=== PATIENT | male | born 1945 | race Caucasian/White ===

== ENCOUNTER 2020-01-31 10:55 | Outpatient (RCR) | payer MEDICARE, SELFPAY | END 2020-02-27 13:03 | disposition home or self-care (01) | LOC: HO.WCC 10:55 | PROVIDERS: Visit Provider Physician Assistant Surgical | DX: S81.811A Laceration without foreign body, right lower leg, initial encounter (principal); I73.9 Peripheral vascular disease, unspecified; H54.7 Unspecified visual loss | CPT/HCPCS: 11042; 99212; 99213 ==

== ENCOUNTER → 2020-02-12 11:56 | Outpatient (BNVA) | payer MEDICARE, SELFPAY | PROVIDERS: PCP Internal Medicine; Referring Provider Internal Medicine; Visit Provider Internal Medicine | DX: I48.0 Paroxysmal atrial fibrillation (principal); Z86.73 Personal history of transient ischemic attack (TIA), and cerebral infarction without residual deficits; Z51.81 Encounter for therapeutic drug level monitoring; Z79.01 Long term (current) use of anticoagulants | CPT/HCPCS: Q3014 ==

== ENCOUNTER → 2020-02-20 16:00 | Outpatient (BNVA) | payer MEDICARE, SELFPAY | PROVIDERS: PCP Internal Medicine; Visit Provider Internal Medicine | DX: I48.0 Paroxysmal atrial fibrillation (principal); Z86.73 Personal history of transient ischemic attack (TIA), and cerebral infarction without residual deficits; Z51.81 Encounter for therapeutic drug level monitoring; Z79.01 Long term (current) use of anticoagulants | CPT/HCPCS: Q3014 ==

== ENCOUNTER → 2020-02-25 10:01 | Outpatient (BNVA) | payer MEDICARE, SELFPAY | PROVIDERS: PCP Internal Medicine; Visit Provider Internal Medicine | DX: I48.0 Paroxysmal atrial fibrillation (principal); Z86.73 Personal history of transient ischemic attack (TIA), and cerebral infarction without residual deficits; Z51.81 Encounter for therapeutic drug level monitoring; Z79.01 Long term (current) use of anticoagulants | CPT/HCPCS: 85610; 99211 ==

== ENCOUNTER 2020-03-10 10:31 | Outpatient (REF) | payer MEDICARE, SELFPAY ==
[2020-03-10 11:52] LABS: MANUAL DIFF FLAG NO
[2020-03-10 12:11] LABS: Basophils Absolute Auto 0.1 X10*3/uL (0.0-0.2); Basophils Percent Auto 0.8 % (0-2); Eosinophils Absolute Auto 0.6 X10*3/uL (0.0-0.4); Eosinophils Percent Auto 6.1 % (0-4); Hematocrit 39.5 % (42-52); Hemoglobin 11.9 g/dl (14.0-18.0); Imm Gran Abs Auto 0.03 X10*3/uL (0.00-0.03); Imm Gran Pct Auto 0.3 % (0.0-0.4); Lymphocytes Absolute Auto 2.6 X10*3/uL (1.2-4.9); Lymphocytes Percent Auto 25.8 % (20-40); Mean Corpuscular HGB Conc 30.1 g/dl (31.0-36.0); Mean Corpuscular Hemoglobin 22.8 pg (27.0-33.0); Mean Corpuscular Volume 75.7 fL (80-98); Monocytes Absolute Auto 0.6 X10*3/uL (0.1-1.2); Monocytes Percent Auto 6.4 % (2-11); Neutrophils Percent Auto 60.6 % (45-73); Platelet Count 219 X10*3/uL (160-400); Red Blood Count 5.22 X10*6/uL (4.60-5.80); Red Cell Distribution Width 18.5 % (11.0-16.0)
[2020-03-10 12:32] LABS: Anion Gap 14 (12-20); Blood Urea Nitrogen 26 mg/dL (9-16); Calcium 9.4 mg/dL (8.4-10.2); Carbon Dioxide 26 mmol/L (22-29); Chloride 107 mmol/L (96-108); Cholesterol 142 mg/dL; Estimated Glomerular Filt Rate 47; Glucose Fasting 165 mg/dL (60-99); HDL Cholesterol 46 mg/dL; LDL Cholesterol Calculated 78 mg/dl; Potassium 5.3 mmol/l (3.3-5.1); Sodium 142 mmol/L (135-145); Triglycerides 90 mg/dL
== END 2020-03-10 10:32 | disposition home or self-care (01) ==
LOC: HO.LAB 10:31
PROVIDERS: PCP Nurse Practitioner Family; Visit Provider Nurse Practitioner Family
DX: E11.9 Type 2 diabetes mellitus without complications (principal); I10 Essential (primary) hypertension; E78.00 Pure hypercholesterolemia, unspecified; R89.9 Unspecified abnormal finding in specimens from other organs, systems and tissues
CPT/HCPCS: 36415; 80048; 80061; 85025; 85610; 99211

== ENCOUNTER → 2020-03-31 10:58 | Outpatient (BNVA) | payer MEDICARE, SELFPAY | PROVIDERS: PCP Nurse Practitioner Family; Visit Provider Internal Medicine | DX: I48.0 Paroxysmal atrial fibrillation (principal); Z86.73 Personal history of transient ischemic attack (TIA), and cerebral infarction without residual deficits; Z51.81 Encounter for therapeutic drug level monitoring; Z79.01 Long term (current) use of anticoagulants | CPT/HCPCS: 85610; 99211 ==

== ENCOUNTER → 2020-05-01 10:21 | Outpatient (BNVA) | payer MEDICARE, SELFPAY | PROVIDERS: PCP Nurse Practitioner Family; Visit Provider Internal Medicine | DX: I48.0 Paroxysmal atrial fibrillation (principal); Z86.73 Personal history of transient ischemic attack (TIA), and cerebral infarction without residual deficits; Z51.81 Encounter for therapeutic drug level monitoring; Z79.01 Long term (current) use of anticoagulants | CPT/HCPCS: 85610; 99211 ==

== ENCOUNTER → 2020-06-12 10:29 | Outpatient (BNVA) | payer MEDICARE, SELFPAY | PROVIDERS: PCP Nurse Practitioner Family; Visit Provider Internal Medicine | DX: I48.0 Paroxysmal atrial fibrillation (principal); Z86.73 Personal history of transient ischemic attack (TIA), and cerebral infarction without residual deficits; Z51.81 Encounter for therapeutic drug level monitoring; Z79.01 Long term (current) use of anticoagulants | CPT/HCPCS: 85610; 99211 ==

== ENCOUNTER → 2020-07-15 10:49 | Outpatient (BNVA) | payer MEDICARE, SELFPAY | PROVIDERS: PCP Internal Medicine; Visit Provider Internal Medicine | DX: I48.0 Paroxysmal atrial fibrillation (principal); Z86.73 Personal history of transient ischemic attack (TIA), and cerebral infarction without residual deficits; Z51.81 Encounter for therapeutic drug level monitoring; Z79.01 Long term (current) use of anticoagulants | CPT/HCPCS: 85610; 99211 ==

== ENCOUNTER → 2020-09-02 10:18 | Outpatient (BNVA) | payer MEDICARE, SELFPAY | PROVIDERS: PCP Internal Medicine; Visit Provider Internal Medicine | DX: I48.0 Paroxysmal atrial fibrillation (principal); Z86.73 Personal history of transient ischemic attack (TIA), and cerebral infarction without residual deficits; Z79.01 Long term (current) use of anticoagulants | CPT/HCPCS: 85610; 99211 ==

== ENCOUNTER → 2020-09-30 10:25 | Outpatient (BNVA) | payer MEDICARE, SELFPAY | PROVIDERS: PCP Internal Medicine; Visit Provider Internal Medicine | DX: I48.0 Paroxysmal atrial fibrillation (principal); Z86.73 Personal history of transient ischemic attack (TIA), and cerebral infarction without residual deficits; Z51.81 Encounter for therapeutic drug level monitoring; Z79.01 Long term (current) use of anticoagulants | CPT/HCPCS: 85610; 99211 ==

== ENCOUNTER 2020-11-10 10:18 | Outpatient (REF) | payer MEDICARE, SELFPAY ==
[2020-11-10 11:42] LABS: MANUAL DIFF FLAG NO
[2020-11-10 11:49] LABS: Basophils Absolute Auto 0.1 X10*3/uL (0.0-0.2); Basophils Percent Auto 0.8 % (0-2); Eosinophils Absolute Auto 0.7 X10*3/uL (0.0-0.4); Eosinophils Percent Auto 8.1 % (0-4); Hematocrit 39.1 % (42-52); Hemoglobin 12.3 g/dl (14.0-18.0); Imm Gran Abs Auto 0.02 X10*3/uL (0.00-0.03); Imm Gran Pct Auto 0.2 % (0.0-0.4); Lymphocytes Absolute Auto 2.1 X10*3/uL (1.2-4.9); Mean Corpuscular HGB Conc 31.5 g/dl (31.0-36.0); Mean Corpuscular Hemoglobin 25.9 pg (27.0-33.0); Mean Corpuscular Volume 82.5 fL (80-98); Mean Platelet Volume 11.8 fL (9.4-12.4); Monocytes Absolute Auto 0.4 X10*3/uL (0.1-1.2); Neutrophils Percent Auto 60.9 % (45-73); Platelet Count 230 X10*3/uL (160-400); Red Blood Count 4.74 X10*6/uL (4.60-5.80); White Blood Count 8.3 X10*3/uL (4.8-10.8)
[2020-11-10 12:13] LABS: Alanine Aminotransferase 7 U/L (0-40); Albumin Level 4.2 g/dL (3.5-5.0); Alkaline Phosphatase 151 U/L (39-117); Anion Gap 15 (12-20); Aspartate Amino Transferase 11 U/L (5-37); Bilirubin Total 0.4 mg/dL (0.0-1.0); Blood Urea Nitrogen 22 mg/dL (9-16); Calcium 9.3 mg/dL (8.4-10.2); Carbon Dioxide 25 mmol/L (22-29); Chloride 108 mmol/L (96-108); Cholesterol 134 mg/dL; Estimated Glomerular Filt Rate 51; Glucose Fasting 133 mg/dL (60-99); HDL Cholesterol 44 mg/dL; Iron 54 mcg/dL (45-160); LDL Cholesterol Calculated 74 mg/dl; Percent Iron Saturation 20 % (15-50); Potassium 4.8 mmol/L (3.3-5.1); Sodium 143 mmol/L (135-145); Total Iron Binding Capacity 271 mcg/dL (228-428); Total Protein 6.7 g/dL (6.5-8.0); Triglycerides 82 mg/dL; Unsaturated Iron Binding 217 ug/dL
[2020-11-10 12:54] LABS: Creatinine Urine 109.52 mg/dL; Microalbum/Creatinine Ratio Ur 68.4 ug/mg cr
[2020-11-14 13:05] LABS: Levetiracetam Keppra 38.4 mcg/mL (12.0-46.0); Vitamin D 25-OH, D2 <4 ng/mL; Vitamin D 25-OH, D3 65 ng/mL; Vitamin D 25-OH, Total 65 ng/mL (30-100)
== END 2020-11-10 10:19 | disposition home or self-care (01) ==
LOC: HO.LAB 10:18
PROVIDERS: PCP Internal Medicine; Visit Provider Internal Medicine
DX: I48.0 Paroxysmal atrial fibrillation (principal); M10.9 Gout, unspecified; E11.9 Type 2 diabetes mellitus without complications; E55.9 Vitamin D deficiency, unspecified; D64.9 Anemia, unspecified; E78.5 Hyperlipidemia, unspecified; R56.9 Unspecified convulsions; Z51.81 Encounter for therapeutic drug level monitoring; Z79.01 Long term (current) use of anticoagulants
CPT/HCPCS: 36415; 80053; 80061; 80177; 82043; 82306; 83540; 84550; 85025; 85610; 99211

== ENCOUNTER → 2020-12-22 10:14 | Outpatient (BNVA) | payer MEDICARE, SELFPAY | PROVIDERS: PCP Internal Medicine; Visit Provider Internal Medicine | DX: I48.0 Paroxysmal atrial fibrillation (principal); Z86.73 Personal history of transient ischemic attack (TIA), and cerebral infarction without residual deficits; Z51.81 Encounter for therapeutic drug level monitoring; Z79.01 Long term (current) use of anticoagulants | CPT/HCPCS: 85610; 99211 ==

== ENCOUNTER 2021-01-28 13:48 | Emergency (ER) | payer MEDICARE, SELFPAY ==
--- NOTE | ~2021-01-28 | XR_ITS ---
EXAMINATION: XR TIBIA AND FIBULA, RIGHT CLINICAL INFORMATION: Diabetic ulcer COMPARISON: July 20, 2018 TECHNIQUE: AP and lateral views of the right tibia and fibula were obtained. FINDINGS: There are regions of osteopenia present proximally and distally. This is similar to previous study of July 20, 2018. There is some soft tissue edema noted within the distal tibia and fibula and ankle. No acute fracture or dislocation is seen. There is some anterior soft tissue prominence about the proximal tibia. There is significant narrowing of the medial joint space compartment of the right knee. Patient is status post previous right femoral surgery with distal aspect of intramedullary jose evident.. There is chondrocalcinosis about the lateral joint space compartment of the right knee. XR/XR tibia fibula RT 2V IMPRESSION: Regions of osteopenia about the proximal and distal tibia. No definite acute fracture or dislocation and no definite cortical bone erosion. Soft tissue edema.
[2021-01-28 14:10] VITALS: BP 118/83; PULSE 83; RESP 18; TEMP 36.3; O2SAT 95; BMI 33.5
--- NOTE | 2021-01-28 15:49 | ED.WOUNDLAC ---
HPI - Wound/Laceration General Chief Complaint: Wound/Laceration Stated Complaint: rash Time Seen by Provider: 01/28/21 15:43 Source: patient Limitations: no limitations History of Present Illness HPI narrative: This is a 76-year-old male with a history of diabetes who has had an ulcer to his right anterior leg has been worsening over the last month. Patient denies any fever. He has noted some purulent drainage and mildly increased erythema around wound. Patient went to an urgent care today but was referred to the emergency department for further evaluation. Patient has been seen in wound clinic previously. States the pain is only mild. He has mild shortness of breath, denies any chest pain, abdominal pain, vomiting, diarrhea. Related Data Home Medications Medication Instructions Recorded Confirmed allopurinol 300 mg tablet 300 mg PO DAILY 03/06/20 12/22/20 hydrocortisone 5 mg tablet (Cortef) 5 mg PO QPM tab 03/06/20 12/22/20 COVID-19 vacc,mRNA(Moderna)-PF 100 0.5 ml IM Q4W 09/30/20 12/22/20 mcg/0.5 mL IM susp(EUA) (Moderna COVID-19 Vaccine (PF)) lancets 33 gauge #100 ea 09/30/20 12/22/20 triamcinolone acetonide 0.025 % appl TOPICAL DAILY 09/30/20 12/22/20 topical cream Previous Rx's Medication Instructions Recorded aspirin 81 mg tablet,delayed 81 mg PO DAILY 90 Days #90 tab 03/07/20 release metoprolol succinate 25 mg 12.5 mg PO QAM #90 tab 03/07/20 tablet,extended release 24 hr tamsulosin 0.4 mg capsule 0.4 mg PO DAILY 90 Days #90 cap 03/07/20 cholecalciferol (vitamin D3) 50 50 mcg PO QAM #90 tab 06/22/20 mcg (2,000 unit) tablet (Vitamin D3) tamsulosin 0.4 mg capsule 0.4 mg PO BEDTIME 90 Days #90 cap 06/22/20 diaper,brief,adult,disposable #100 ea 07/15/20 (Briefs, Adult-Extra Large) lancets 28 gauge #100 ea 07/15/20 blood sugar diagnostic (FreeStyle #100 ea 07/29/20 Lite Strips) amlodipine 2.5 mg tablet 2.5 mg PO QAM 90 Days #90 tab 09/16/20 atorvastatin 40 mg tablet 40 mg PO BEDTIME 90 Days #90 tab 09/16/20 metformin 500 mg tablet 500 mg PO BID 90 Days #180 tab 09/16/20 ferrous sulfate 325 mg (65 mg 325 mg PO DAILY 60 Days #60 tab 10/13/20 iron) tablet mirtazapine 15 mg tablet 15 mg PO BEDTIME 90 Days #90 tab 10/13/20 omeprazole 20 mg capsule,delayed 20 mg PO QAM 90 Days #90 cap 10/13/20 release fluoxetine 20 mg capsule 20 mg PO QAM 90 Days #90 cap 12/15/20 hydrocortisone 5 mg tablet (Cortef) 10 mg PO QAM 60 Days #120 tab 12/15/20 levetiracetam 750 mg tablet 750 mg PO BID 90 Days #180 tab 12/15/20 warfarin 2.5 mg tablet See Rx Instructions .ROUTE 01/20/21 .COMPLEX #90 tab amoxicillin 875 mg-potassium 1 tab PO BID #20 tab 01/28/21 clavulanate 125 mg tablet (Augmentin) Allergies Allergy/AdvReac Type Severity Reaction Status Date / Time No Known Allergies Allergy Verified 11/10/20 10:32 Review of Systems Review of Systems: Yes all other systems are reviewed and are negative Constitutional: Constitutional: Reports as per HPI and Denies fever(s) Eyes: Eyes: Reports as per HPI and Reports no additional eye complaints ENT: Reports system reviewed and no additional complaints, except as documented, Reports as per HPI, Denies nasal congestion, Denies nasal discharge and Denies sore throat Cardiovascular: Cardiovascular: Reports as per HPI, Denies chest pain and Reports dyspnea (Mild) Respiratory: Respiratory: Reports as per HPI, Denies cough and Reports dyspnea (Mild) Gastrointestinal: Gastrointestinal: Reports as per HPI, Denies abdominal pain, Denies diarrhea and Denies vomiting Genitourinary: Genitourinary: Reports as per HPI, Denies hematuria, Denies dysuria and Denies urinary frequency Musculoskeletal: Musculoskeletal: Reports no additional musculoskeletal complaints and Denies numbness Comments: Extremity pain Integumentary/Breasts: Skin/Breast: Reports as per HPI and Denies rash Comments: Ulcer right anterior leg Neurologic: Reports as per HPI, Denies focal weakness, Denies numbness and Denies Sensory deficit (Neuro) Psychiatric: Psychiatric: Reports no additional psychiatric complaints and Reports as per HPI Endocrine: Endocrine: Reports no additional endocrine complaints and Reports as per HPI Hematologic/Lymphatic: Hematologic/Lymphatic: Reports no additional hematologic/lymphatic complaints, Reports as per HPI and Reports other (No peripheral edema) [facility] Past Medical History Medical History Abnormal laboratory test BPH (benign prostatic hyperplasia) Diabetes Dyslipidemia Gout Hypertension Hypovitaminosis D Iron deficiency anemia Psoriasis Seizures Stroke Surgical History History of kidney stones History of open reduction and internal fixation (ORIF) procedure Family History Family History Mother Heart problem Father Bone cancer Social History Social History Housing: Apartment Alcohol intake: former Patient Tobacco Use Status: Never used Tobacco e-Cigarette/Vaping Use: Never Used Second Hand Smoke Exposure: No Advance Directives: No service: No Current occupational status: disabled Physical Exam Vital Signs: Vital Signs: Last Vital Signs Temp 97.8 F 01/28/21 16:41 Pulse 70 01/28/21 16:41 Resp 16 01/28/21 16:41 BP 102/67 01/28/21 16:41 Pulse Ox 96 01/28/21 16:41 Body Mass Index 33.5 Const: Other: Moderately obese General: cooperative, no acute distress and alert Orientation/consciousness: patient oriented x3 HENMT: Head: Yes normal to inspection Eyes: General: appearance normal, both eyes and all related structures Eyelids: Yes eyelids normal Conjunctivae: conjunctivae normal Pupils: Equal, round and reactive pupils present Neck: Neck: Yes normal visual inspection and Yes supple Chest: Chest palpation & inspection: normal inspection of the chest Resp: Effort & Inspection: normal respiratory effort Auscultation: clear to auscultation bilaterally Cardio: Rate: regular rate Rhythm: regular rhythm Heart sounds: S1 normal heart sound present, S2 normal heart sound present, no gallops, no murmurs and no rubs GI: Palpation (GI): Soft to palpation, nontender and Other GI palpation findings present (Non-distended) Auscultation: normal bowel sounds Skin: General skin exam: no rashes or lesions noted Neuro: General: patient oriented x3, no focal motor deficits and CN's II-XI intact bilaterally Cranial nerves: Yes Equal, round and reactive pupils present Cognition (Neuro): normal cognition Motor exam (neuro): 5/5 motor strength present throughout Sensory Exam: No Sensory deficit (Neuro) Extrem: Other: Right anterior leg with an approximately 3 x 2 area of ulceration and necrotic tissue with mild localized erythema. Right foot is warm with a normal dorsalis pedis pulse is. No calf swelling or tenderness General: Yes no pedal edema and Yes no calf tenderness Psych: Appearance: grossly normal Affect: normal affect MDM - Wound/Laceration MDM Narrative Medical decision making narrative: Patient with a right leg ulcer with mild inflammation/erythema, with necrotic skin and dark fibrinous material in the ulcer, which was debrided until there is only healthy pink tissue visible. Patient is being started on Augmentin. X-ray did not show any evidence of osteomyelitis and once the wound was debrided, it was clear that it was relatively superficial. CBC and chemistry notable only for renal insufficiency, which is about at baseline, and mild hyperkalemia of 5.8, which is fairly chronic-the patient has had mildly elevated levels before. Patient does not appear to be on any Dante inhibitors or potassium-sparing diuretics. Will treat with Kayexalate 30 g p.o. and the patient is advised to have his potassium rechecked either tomorrow or early next week. He is advised to drink plenty of fluids. Lab Data Attestation: I reviewed the patient's lab results. Result diagrams: 01/28/21 16:39 01/28/21 16:39 Labs: Lab Results 01/28/21 01/28/21 Range/Units 16:39 16:39 WBC 10.2 (4.8-10.8) X10*3/uL RBC 4.54 L (4.60-5.80) X10*6/uL Hgb 12.0 L (14.0-18.0) g/dl Hct 37.1 L (42-52) % MCV 81.7 (80-98) fL MCH 26.4 L (27.0-33.0) pg MCHC 32.3 (31.0-36.0) g/dl RDW 16.3 H (11.0-16.0) % Plt Count 203 (160-400) X10*3/uL MPV 11.6 (9.4-12.4) fL Immature Gran % (Auto) 0.2 (0.0-0.4) % Neut % (Auto) 71.9 (45-73) % Lymph % (Auto) 13.8 L (20-40) % [place] % (Auto) 4.9 (2-11) % Eos % (Auto) 8.4 H (0-4) % Baso % (Auto) 0.8 (0-2) % Lymph # (Auto) 1.4 (1.2-4.9) X10*3/uL [place] # (Auto) 0.5 (0.1-1.2) X10*3/uL Eos # (Auto) 0.9 H (0.0-0.4) X10*3/uL Baso # (Auto) 0.1 (0.0-0.2) X10*3/uL Abs Immat Gran (auto) 0.02 (0.00-0.03) X10*3/uL Absolute Neuts (auto) 7.3 (2.0-8.3) X10*3/uL Absolute Nucleated RBC 0.000 (0.0-0.012) X10*3/uL Nucleated RBC % (auto) 0.0 (0.0-0.2) /100WBC Sodium 143 (135-145) mmol/L Potassium 5.8 H D (3.3-5.1) mmol/L Chloride 109 H (96-108) mmol/L Carbon Dioxide 22 (22-29) mmol/L Anion Gap 18 (12-20) BUN 24 H (9-16) mg/dL Creatinine 1.53 H (0.5-1.4) mg/dL Estim Creat Clear Calc 57.0 Estimated GFR 45 Random Glucose 143 H (60-115) mg/dL Calcium 9.1 (8.4-10.2) mg/dL Total Bilirubin 0.6 (0.0-1.0) mg/dL AST 11 (5-37) U/L ALT 11 (0-40) U/L Alkaline Phosphatase 170 H (39-117) U/L Total Protein 6.3 L (6.5-8.0) g/dL Albumin 4.1 (3.5-5.0) g/dL Imaging Data Tib-fib x-ray, right leg: Radiologist's impression: IMPRESSION: Regions of osteopenia about the proximal and distal tibia. No definite acute fracture or dislocation and no definite cortical bone erosion. Soft tissue edema. ? Procedures Procedure Narrative Procedure Narrative: Patient's right leg skin ulcer was debrided of necrotic/fibrinous material, using sterile forceps and scissors. The wound was rinsed and scrubbed with saline and gauze until only pink dermal tissue was apparent. Wound was relatively superficial. Wound culture sent. Patient tolerated the procedure well. No anesthetic necessary. Wet to dry gauze dressing applied Discharge Plan Discharge Clinical Impression: Diabetic leg ulcer, Hyperkalemia Patient Disposition: Home, Self-Care Instructions: Diabetic Foot Ulcers (ED) Additional Instructions: Cleanse the wound daily with saline on a Q-tip, then apply antibiotic ointment and a dressing. Follow-up at the wound clinic, call tomorrow for an appointment early next week. Use Tylenol for pain. Take the antibiotic as prescribed. Return for any worsened symptoms such as increased redness or swelling, fever. Drink plenty of water, and follow up with her primary care physician to have your potassium level checked again tomorrow or Monday. Prescriptions: New amoxicillin-pot clavulanate [Augmentin] 875-125 mg tablet 1 tab PO BID Qty: 20 RF: 0 No Action (DME) lancets 28 gauge misc See Rx Instructions .ROUTE .MEDSUPPLY Qty: 100 RF: 0 (DME) Briefs, Adult-Extra Large Misc See Rx Instructions .ROUTE .MEDSUPPLY Qty: 100 RF: 0 (DME) FreeStyle Lite Strips Strip See Rx Instructions .ROUTE .MEDSUPPLY Qty: 100 RF: 0 amlodipine 2.5 mg tablet 2.5 mg PO QAM 90 Days Qty: 90 RF: 3 atorvastatin 40 mg tablet 40 mg PO BEDTIME 90 Days Qty: 90 RF: 3 metformin 500 mg tablet 500 mg PO BID 90 Days Qty: 180 RF: 3 omeprazole 20 mg capsule,delayed release(DR/EC) 20 mg PO QAM 90 Days Qty: 90 RF: 2 ferrous sulfate 325 mg (65 mg iron) tablet 325 mg PO DAILY 60 Days Qty: 60 RF: 6 mirtazapine 15 mg tablet 15 mg PO BEDTIME 90 Days Qty: 90 RF: 3 levetiracetam 750 mg tablet 750 mg PO BID 90 Days Qty: 180 RF: 0 hydrocortisone [Cortef] 5 mg tablet 10 mg PO QAM 60 Days Qty: 120 RF: 0 fluoxetine 20 mg capsule 20 mg PO QAM 90 Days Qty: 90 RF: 0 warfarin 2.5 mg tablet See Rx Instructions mg .ROUTE .COMPLEX Qty: 90 RF: 0 allopurinol 300 mg tablet 300 mg PO DAILY RF: 0 hydrocortisone [Cortef] 5 mg tablet 5 mg PO QPM RF: 0 aspirin 81 mg tablet,delayed release (DR/EC) 81 mg PO DAILY 90 Days Qty: 90 RF: 0 metoprolol succinate 25 mg tablet extended release 24 hr 12.5 mg PO QAM Qty: 90 RF: 0 tamsulosin 0.4 mg capsule 0.4 mg PO DAILY 90 Days Qty: 90 RF: 0 cholecalciferol (vitamin D3) [Vitamin D3] 50 mcg (2,000 unit) tablet 50 mcg PO QAM Qty: 90 RF: 1 tamsulosin 0.4 mg capsule 0.4 mg PO BEDTIME 90 Days Qty: 90 RF: 0 triamcinolone acetonide 0.025 % cream topical DAILY RF: 0 (DME) lancets 33 gauge misc See Rx Instructions ea Not Applicable DAILY Qty: 100 RF: 0 Moderna COVID-19 Vaccine (EUA) 100 mcg/0.5 mL suspension 0.5 ml IM Q4W RF: 0 Referrals: Kacie Valentino PA [Physician [employer]acebook Writer] - 5 days
[2021-01-28] MEDS: Amoxicillin/Potassium Clav 875 MG TABLET PO (16:40)
[2021-01-28 16:41] VITALS: BP 102/67; PULSE 70; RESP 16; TEMP 36.6; O2SAT 96
[2021-01-28 16:43] LABS: MANUAL DIFF FLAG NO
[2021-01-28 16:45] LABS: Basophils Absolute Auto 0.1 X10*3/uL (0.0-0.2); Basophils Percent Auto 0.8 % (0-2); Eosinophils Absolute Auto 0.9 X10*3/uL (0.0-0.4); Eosinophils Percent Auto 8.4 % (0-4); Hematocrit 37.1 % (42-52); Imm Gran Abs Auto 0.02 X10*3/uL (0.00-0.03); Imm Gran Pct Auto 0.2 % (0.0-0.4); Lymphocytes Absolute Auto 1.4 X10*3/uL (1.2-4.9); Lymphocytes Percent Auto 13.8 % (20-40); Mean Corpuscular HGB Conc 32.3 g/dl (31.0-36.0); Mean Corpuscular Hemoglobin 26.4 pg (27.0-33.0); Mean Corpuscular Volume 81.7 fL (80-98); Mean Platelet Volume 11.6 fL (9.4-12.4); Monocytes Absolute Auto 0.5 X10*3/uL (0.1-1.2); Monocytes Percent Auto 4.9 % (2-11); Neutrophils Absolute Auto 7.3 X10*3/uL (2.0-8.3); Neutrophils Percent Auto 71.9 % (45-73); Platelet Count 203 X10*3/uL (160-400); Red Blood Count 4.54 X10*6/uL (4.60-5.80); Red Cell Distribution Width 16.3 % (11.0-16.0); White Blood Count 10.2 X10*3/uL (4.8-10.8)
[2021-01-28 17:10] LABS: Alanine Aminotransferase 11 U/L (0-40); Albumin Level 4.1 g/dL (3.5-5.0); Alkaline Phosphatase 170 U/L (39-117); Anion Gap 18 (12-20); Aspartate Amino Transferase 11 U/L (5-37); Bilirubin Total 0.6 mg/dL (0.0-1.0); Blood Urea Nitrogen 24 mg/dL (9-16); Calcium 9.1 mg/dL (8.4-10.2); Carbon Dioxide 22 mmol/L (22-29); Chloride 109 mmol/L (96-108); Estimated Glomerular Filt Rate 45; Glucose Random 143 mg/dL (60-115); Potassium 5.8 mmol/L (3.3-5.1); Sodium 143 mmol/L (135-145); Total Protein 6.3 g/dL (6.5-8.0)
[2021-01-28] MEDS: Sodium Polystyrene Sulfon/Sorb 15 GM/60 ML ORAL.SUSP 30 GM PO (17:54)
== END 2021-01-28 18:21 | disposition home or self-care (01) ==
PROVIDERS: Emergency Provider Emergency Medicine; PCP Internal Medicine
DX: E11.622 Type 2 diabetes mellitus with other skin ulcer (principal); L98.499 Non-pressure chronic ulcer of skin of other sites with unspecified severity; E87.5 Hyperkalemia; I10 Essential (primary) hypertension
CPT/HCPCS: 11042; 36415; 73590; 80053; 85025; 99283

== ENCOUNTER → 2021-02-10 10:40 | Outpatient (BNVA) | payer MEDICARE, SELFPAY | PROVIDERS: PCP Internal Medicine; Visit Provider Internal Medicine | DX: I48.0 Paroxysmal atrial fibrillation (principal); Z86.73 Personal history of transient ischemic attack (TIA), and cerebral infarction without residual deficits; Z51.81 Encounter for therapeutic drug level monitoring; Z79.01 Long term (current) use of anticoagulants | CPT/HCPCS: 85610; 99211 ==

== ENCOUNTER 2021-03-02 10:13 | Outpatient (RCR) | payer MEDICARE, SELFPAY | END 2021-03-16 09:17 | disposition home or self-care (01) | LOC: HO.WCC 10:13 | PROVIDERS: PCP Internal Medicine; Visit Provider Physician Assistant | DX: Z09 Encounter for follow-up examination after completed treatment for conditions other than malignant neoplasm (principal); I87.323 Chronic venous hypertension (idiopathic) with inflammation of bilateral lower extremity; I11.0 Hypertensive heart disease with heart failure; I50.9 Heart failure, unspecified; I25.2 Old myocardial infarction; I69.320 Aphasia following cerebral infarction; Z87.2 Personal history of diseases of the skin and subcutaneous tissue | CPT/HCPCS: 99212 ==

== ENCOUNTER → 2021-03-30 09:28 | Outpatient (BNVA) | payer MEDICARE, SELFPAY | PROVIDERS: PCP Internal Medicine; Visit Provider Internal Medicine | DX: I48.0 Paroxysmal atrial fibrillation (principal); Z86.73 Personal history of transient ischemic attack (TIA), and cerebral infarction without residual deficits; Z51.81 Encounter for therapeutic drug level monitoring; Z79.01 Long term (current) use of anticoagulants | CPT/HCPCS: 85610; 99211 ==

== ENCOUNTER → 2021-05-14 10:44 | Outpatient (BNVA) | payer MEDICARE, SELFPAY | PROVIDERS: PCP Internal Medicine; Visit Provider Internal Medicine | DX: I48.0 Paroxysmal atrial fibrillation (principal); Z86.73 Personal history of transient ischemic attack (TIA), and cerebral infarction without residual deficits; Z51.81 Encounter for therapeutic drug level monitoring; Z79.01 Long term (current) use of anticoagulants | CPT/HCPCS: 85610; 99211 ==

== ENCOUNTER 2021-06-18 10:39 | Emergency (ER) | payer MEDICARE, SELFPAY ==
[2021-06-18 10:43] VITALS: BP 127/88; PULSE 76; RESP 16; TEMP 36.2; O2SAT 98; BMI 33.4
[2021-06-18 11:31] LABS: MANUAL DIFF FLAG NO
[2021-06-18 11:35] LABS: Basophils Absolute Auto 0.1 X10*3/uL (0.0-0.2); Basophils Percent Auto 0.9 % (0-2); Eosinophils Absolute Auto 0.8 X10*3/uL (0.0-0.4); Eosinophils Percent Auto 8.8 % (0-4); Hematocrit 37.2 % (42.0-52.0); Hemoglobin 12.1 g/dl (14.0-18.0); Imm Gran Abs Auto 0.03 X10*3/uL (0.00-0.03); Imm Gran Pct Auto 0.3 % (0.0-0.4); Lymphocytes Absolute Auto 1.7 X10*3/uL (1.2-4.9); Lymphocytes Percent Auto 18.9 % (20-40); Mean Corpuscular HGB Conc 32.5 g/dl (31.0-36.0); Mean Corpuscular Hemoglobin 27.1 pg (27.0-33.0); Mean Corpuscular Volume 83.2 fL (80.0-98.0); Mean Platelet Volume 11.4 fL (9.4-12.4); Monocytes Absolute Auto 0.5 X10*3/uL (0.1-1.2); Monocytes Percent Auto 5.1 % (2-11); Neutrophils Absolute Auto 6.1 x10*3/uL (2.0-8.3); Platelet Count 244 X10*3/uL (160-400); Red Blood Count 4.47 X10*6/uL (4.60-5.80); Red Cell Distribution Width 14.6 % (11.0-16.0); White Blood Count 9.2 X10*3/uL (4.8-10.8)
--- NOTE | 2021-06-18 11:40 | ED.EXTPRO ---
HPI - Extremity Problem General Chief complaint: Extremity Problem Stated complaint: Leg wound, both legs Time Seen by Provider: 06/18/21 11:04 History of Present Illness HPI Narrative: Patient complains of red itchy scabbed rash on both lower legs which has been going on for many many weeks and is similar to a prior episode he had in January which was treated with antibiotics, denies fever or chills He missed an appointment with Nephrology for an evaluation of a potassium that was mildly elevated in January and an elevated creatinine, his labs have not been checked since Related Data Home Medications Medication Instructions Recorded Confirmed COVID-19 vacc,mRNA(Moderna)-PF 100 0.5 ml IM Q4W 09/30/20 05/14/21 mcg/0.5 mL IM susp(EUA) (Moderna COVID-19 Vaccine (PF)) lancets 33 gauge #100 ea 09/30/20 05/14/21 triamcinolone acetonide 0.025 % appl TOPICAL DAILY 09/30/20 05/14/21 topical cream betamethasone valerate 0.1 % lotion TOPICAL BID 05/14/21 05/14/21 Previous Rx's Medication Instructions Recorded tamsulosin 0.4 mg capsule 0.4 mg PO BEDTIME 90 Days #90 cap 06/22/20 diaper,brief,adult,disposable #100 ea 07/15/20 (Briefs, Adult-Extra Large) metformin 500 mg tablet 500 mg PO BID 90 Days #180 tab 09/16/20 ferrous sulfate 325 mg (65 mg 325 mg PO DAILY 60 Days #60 tab 10/13/20 iron) tablet mirtazapine 15 mg tablet 15 mg PO BEDTIME 90 Days #90 tab 10/13/20 omeprazole 20 mg capsule,delayed 20 mg PO QAM 90 Days #90 cap 10/13/20 release power wheelchair #1 ea 02/27/21 amlodipine 2.5 mg tablet 2.5 mg PO QAM 90 Days #90 tab 03/08/21 atorvastatin 40 mg tablet 40 mg PO BEDTIME 90 Days #90 tab 03/08/21 levetiracetam 750 mg tablet 750 mg PO BID 90 Days #180 tab 03/17/21 metoprolol succinate 25 mg 12.5 mg PO QAM #90 tab 03/17/21 tablet,extended release 24 hr allopurinol 100 mg tablet 100 mg PO DAILY 90 Days #90 tab 01/05/22 aspirin 81 mg tablet,delayed 81 mg PO DAILY 90 Days #90 tab 04/21/21 release cholecalciferol (vitamin D3) 50 50 mcg PO QAM #90 tab 04/21/21 mcg (2,000 unit) tablet (Vitamin D3) fluoxetine 20 mg capsule 20 mg PO QAM 90 Days #90 cap 04/21/21 hydrocortisone 5 mg tablet (Cortef) 10 mg PO QAM 60 Days #120 tab 04/21/21 tamsulosin 0.4 mg capsule 0.4 mg PO DAILY 90 Days #90 cap 04/21/21 lancets 28 gauge #100 ea 06/15/21 amoxicillin 500 mg-potassium 1 tab PO TID 7 Days #21 tab 06/18/21 clavulanate 125 mg tablet (Augmentin) warfarin 2.5 mg tablet See Rx Instructions .ROUTE 06/18/21 .COMPLEX #90 tab blood sugar diagnostic (FreeStyle #100 ea 06/25/21 Lite Strips) Allergies Allergy/AdvReac Type Severity Reaction Status Date / Time No Known Allergies Allergy Verified 06/18/21 10:48 Review of Systems Review of Systems: Positive for itchy rash on both legs Negatives are no fever no chills no dizziness no weakness no headache no stiff neck no chest pain no shortness of breath no abdominal pain no nausea or vomiting no leg swelling no joint pains Yes all other systems are reviewed and are negative [facility] Past Medical History Source: nursing notes reviewed Medical History (Updated 06/19/21 @ 00:01 by Amaya Navarro) Abnormal laboratory test BPH (benign prostatic hyperplasia) CKD (chronic kidney disease) Diabetes Dyslipidemia Gout Hypertension Hypovitaminosis D Iron deficiency anemia Physical exam Psoriasis Seizures Stroke Surgical History History of kidney stones History of open reduction and internal fixation (ORIF) procedure Family History Family History Mother Heart problem Father Bone cancer Social History Social History Housing: Apartment Alcohol intake: former Patient Tobacco Use Status: Never used Tobacco e-Cigarette/Vaping Use: Never Used Second Hand Smoke Exposure: No service: No Current occupational status: disabled Physical Exam Vital Signs: Vital Signs: Last Vital Signs Temp 97.2 F 06/18/21 10:43 Pulse 76 06/18/21 10:43 Resp 16 06/18/21 10:43 BP 127/88 06/18/21 10:43 Pulse Ox 98 06/18/21 10:43 BMI result Body Mass Index 33.4 General appearance is no acute distress Head is normocephalic atraumatic Neck is supple Respiratory no distress Chest clear to auscultation bilateral Abdomen soft nontender Extremities full range of motion x4, no swelling Both anterior lower legs have a red excoriated rash with some some scabs, no discharge no swelling no fluctuance no red stripe up the legs, painless full range of motion in all joints including knee and ankle which are not swollen or red Neuro no focal motor deficits Course Course Course Narrative: I recheck labs today as he had missed his nephrology appointment and had had a prior elevated potassium and creatinine Today potassium is 4.4, normal and creatinine was 1.09 normal He had similar scratched red itchy rash on his legs before which had gotten infected and was treated with antibiotic with a good result so I restarted antibiotic, vital signs were stable he had no sign of sepsis or systemic disease MDM - Extremity (Nontraumatic) Lab Data Attestation: I reviewed the patient's lab results. Result diagrams: 06/18/21 11:27 06/18/21 11:27 Labs: Lab Results 06/18/21 06/18/21 Range/Units 11:27 11:27 WBC 9.2 (4.8-10.8) X10*3/uL RBC 4.47 L (4.60-5.80) X10*6/uL Hgb 12.1 L (14.0-18.0) g/dl Hct 37.2 L (42.0-52.0) % MCV 83.2 (80.0-98.0) fL MCH 27.1 (27.0-33.0) pg MCHC 32.5 (31.0-36.0) g/dl RDW 14.6 (11.0-16.0) % Plt Count 244 (160-400) X10*3/uL MPV 11.4 (9.4-12.4) fL Immature Gran % (Auto) 0.3 (0.0-0.4) % Neut % (Auto) 66.0 (45-73) % Lymph % (Auto) 18.9 L (20-40) % [place] % (Auto) 5.1 (2-11) % Eos % (Auto) 8.8 H (0-4) % Baso % (Auto) 0.9 (0-2) % Lymph # (Auto) 1.7 (1.2-4.9) X10*3/uL [place] # (Auto) 0.5 (0.1-1.2) X10*3/uL Eos # (Auto) 0.8 H (0.0-0.4) X10*3/uL Baso # (Auto) 0.1 (0.0-0.2) X10*3/uL Abs Immat Gran (auto) 0.03 (0.00-0.03) X10*3/uL Absolute Neuts (auto) 6.1 (2.0-8.3) x10*3/uL Absolute Nucleated RBC 0.000 (0.0-0.012) X10*3/uL Nucleated RBC % (auto) 0.0 (0.0-0.2) /100WBC Sodium 139 (135-145) mmol/L Potassium 4.4 D (3.3-5.1) mmol/L Chloride 107 (96-108) mmol/L Carbon Dioxide 22 (22-29) mmol/L Anion Gap 14 (12-20) BUN 14 (9-16) mg/dL Creatinine 1.09 (0.5-1.4) mg/dL Estim Creat Clear Calc 79.9 Estimated GFR > 60 Random Glucose 158 H (60-115) mg/dL Calcium 8.5 D (8.4-10.2) mg/dL Discharge Plan Discharge Clinical Impression: Cellulitis, Rash Patient Disposition: Home, Self-Care Additional Instructions: The rash on both legs could be infected so we are starting antibiotic Augmentin which was the 1 you got in January for similar problem Follow next week with primary doctor, you may need tests to evaluate circulation in her legs as this may be contributing to the chronic rashes Follow with chemistry specialist as well Return any time for spreading redness, worse pain and swelling, fever, any worse condition or any concerns When taking antibiotics it is a good idea to by probiotics [id number] from the pharmacy to prevent antibiotic associated diarrhea Prescriptions: New amoxicillin-pot clavulanate [Augmentin] 500-125 mg tablet 1 tab PO TID 7 Days Qty: 21 0RF No Action (DME) Briefs, Adult-Extra Large Misc See Rx Instructions .ROUTE .MEDSUPPLY Qty: 100 0RF Rx Instructions: As directed metformin 500 mg tablet 500 mg PO BID 90 Days Qty: 180 3RF omeprazole 20 mg capsule,delayed release(DR/EC) 20 mg PO QAM 90 Days Qty: 90 2RF ferrous sulfate 325 mg (65 mg iron) tablet 325 mg PO DAILY 60 Days Qty: 60 6RF mirtazapine 15 mg tablet 15 mg PO BEDTIME 90 Days Qty: 90 3RF (DME) power wheelchair See Rx Instructions .Route .MEDSUPPLY Qty: 1 0RF Rx Instructions: As directed levetiracetam 750 mg tablet 750 mg PO BID 90 Days Qty: 180 0RF metoprolol succinate 25 mg tablet extended release 24 hr 12.5 mg PO QAM Qty: 90 0RF allopurinol 100 mg tablet 100 mg PO DAILY 90 Days Qty: 90 0RF aspirin 81 mg tablet,delayed release (DR/EC) 81 mg PO DAILY 90 Days Qty: 90 0RF fluoxetine 20 mg capsule 20 mg PO QAM 90 Days Qty: 90 0RF hydrocortisone [Cortef] 5 mg tablet 10 mg PO QAM 60 Days Qty: 120 0RF tamsulosin 0.4 mg capsule 0.4 mg PO DAILY 90 Days Qty: 90 0RF cholecalciferol (vitamin D3) [Vitamin D3] 50 mcg (2,000 unit) tablet 50 mcg PO QAM Qty: 90 1RF (DME) lancets 28 gauge misc See Rx Instructions .ROUTE .MEDSUPPLY Qty: 100 1RF Rx Instructions: TEST ONCE DAILY warfarin 2.5 mg tablet See Rx Instructions mg .ROUTE .COMPLEX Qty: 90 0RF Protocol: Dose Management Condition: Monday (Week One) Dose/Route: 5 mg Instruction: 2 x 2.5 mg tablets Condition: Monday Dose/Route: 2.5 mg Instruction: 1 x 2.5 mg tablet Condition: Monday Dose/Route: 2.5 mg Instruction: 1 x 2.5 mg tablet Condition: Monday Dose/Route: 5 mg Instruction: 2 x 2.5 mg tablets Condition: Dose/Route: 2.5 mg Instruction: 1 x 2.5 mg tablet Condition: Monday Dose/Route: 2.5 mg Instruction: 1 x 2.5 mg tablet Condition: Monday Dose/Route: 2.5 mg Instruction: 1 x 2.5 mg tablet Condition: Monday (Week Two) Dose/Route: 5 mg Instruction: 2 x 2.5 mg tablets Condition: Monday Dose/Route: 2.5 mg Instruction: 1 x 2.5 mg tablet Condition: Monday Dose/Route: 2.5 mg Instruction: 1 x 2.5 mg tablet Condition: Monday Dose/Route: 5 mg Instruction: 2 x 2.5 mg tablets Condition: Dose/Route: 2.5 mg Instruction: 1 x 2.5 mg tablet Condition: Monday Dose/Route: 2.5 mg Instruction: 1 x 2.5 mg tablet Condition: Monday Dose/Route: 2.5 mg Instruction: 1 x 2.5 mg tablet Protocol Text: Adjustment Start Date: Monday05/14/21 INR Value: 2.9 INR Date: 05/14/21 Recheck Date: 06/11/21 Additional Instructions: eat a mix of fruits and vegetables Rx Instructions: 5MG X2DAYS/ 2.5MG X5DAYS; (DME) FreeStyle Lite Strips Strip See Rx Instructions .ROUTE .MEDSUPPLY Qty: 100 3RF Rx Instructions: TEST ONCE DAILY tamsulosin 0.4 mg capsule 0.4 mg PO BEDTIME 90 Days Qty: 90 0RF atorvastatin 40 mg tablet 40 mg PO BEDTIME 90 Days Qty: 90 3RF amlodipine 2.5 mg tablet 2.5 mg PO QAM 90 Days Qty: 90 3RF triamcinolone acetonide 0.025 % cream topical DAILY 0RF (DME) lancets 33 gauge misc See Rx Instructions ea Not Applicable DAILY Qty: 100 0RF Rx Instructions: As directed Moderna COVID-19 Vaccine (EUA) 100 mcg/0.5 mL suspension 0.5 ml IM Q4W 0RF Rx Instructions: for 2 doses betamethasone valerate 0.1 % lotion topical BID 0RF Interventions: ED Discharge Assessment Last Done: 06/18/21 12:58 Discharge Date/Time: 06/18/21 13:00
[2021-06-18 11:49] LABS: Anion Gap 14 (12-20); Blood Urea Nitrogen 14 mg/dL (9-16); Calcium 8.5 mg/dL (8.4-10.2); Carbon Dioxide 22 mmol/L (22-29); Chloride 107 mmol/L (96-108); Creatinine Clr Calc Pharmacy 79.9; Estimated Glomerular Filt Rate > 60; Glucose Random 158 mg/dL (60-115); Potassium 4.4 mmol/L (3.3-5.1); Sodium 139 mmol/L (135-145)
[2021-06-18] MEDS: Amoxicillin/Potassium Clav 875 MG TABLET PO (12:52)
== END 2021-06-18 13:00 | disposition home or self-care (01) ==
PROVIDERS: Physician Assistant Medical; Emergency Provider Emergency Medicine; PCP Internal Medicine
DX: L03.115 Cellulitis of right lower limb (principal); L03.116 Cellulitis of left lower limb; Z79.899 Other long term (current) drug therapy; Z20.822 Contact with and (suspected) exposure to COVID-19
CPT/HCPCS: 36415; 80048; 85025; 99283

== ENCOUNTER 2021-06-28 10:21 | Outpatient (REF) | payer MEDICARE, SELFPAY ==
[2021-06-28 10:46] LABS: MANUAL DIFF FLAG NO
[2021-06-28 11:18] LABS: Basophils Absolute Auto 0.1 X10*3/uL (0.0-0.2); Basophils Percent Auto 1.1 % (0-2); Eosinophils Absolute Auto 0.7 X10*3/uL (0.0-0.4); Eosinophils Percent Auto 7.6 % (0-4); Hematocrit 42.1 % (42.0-52.0); Hemoglobin 13.3 g/dl (14.0-18.0); Imm Gran Abs Auto 0.04 X10*3/uL (0.00-0.03); Imm Gran Pct Auto 0.4 % (0.0-0.4); Lymphocytes Absolute Auto 1.8 X10*3/uL (1.2-4.9); Lymphocytes Percent Auto 19.2 % (20-40); Mean Corpuscular HGB Conc 31.6 g/dl (31.0-36.0); Mean Corpuscular Hemoglobin 26.5 pg (27.0-33.0); Mean Corpuscular Volume 83.9 fL (80.0-98.0); Mean Platelet Volume 11.2 fL (9.4-12.4); Monocytes Absolute Auto 0.6 X10*3/uL (0.1-1.2); Monocytes Percent Auto 5.9 % (2-11); Neutrophils Absolute Auto 6.3 x10*3/uL (2.0-8.3); Neutrophils Percent Auto 65.8 % (45-73); Platelet Count 243 X10*3/uL (160-400); Red Blood Count 5.02 X10*6/uL (4.60-5.80); Red Cell Distribution Width 14.6 % (11.0-16.0); White Blood Count 9.5 X10*3/uL (4.8-10.8)
[2021-06-28 12:38] LABS: Alanine Aminotransferase 9 U/L (0-40); Albumin Level 4.2 g/dL (3.5-5.0); Alkaline Phosphatase 162 U/L (39-117); Anion Gap 20 (12-20); Aspartate Amino Transferase 12 U/L (5-37); Bilirubin Total 0.6 mg/dL (0.0-1.0); Blood Urea Nitrogen 19 mg/dL (9-16); Calcium 9.2 mg/dL (8.4-10.2); Carbon Dioxide 23 mmol/L (22-29); Chloride 105 mmol/L (96-108); Estimated Glomerular Filt Rate 59; Glucose Fasting 145 mg/dL (60-99); Iron 67 mcg/dL (45-160); Percent Iron Saturation 24 % (15-50); Potassium 4.9 mmol/L (3.3-5.1); Sodium 143 mmol/L (135-145); Total Iron Binding Capacity 282 mcg/dL (228-428); Total Protein 7.1 g/dL (6.5-8.0); Unsaturated Iron Binding 215 ug/dL; Uric Acid 5.8 mg/dL (3.4-7.0)
== END 2021-06-28 10:22 | disposition home or self-care (01) ==
LOC: HO.LAB 10:21
PROVIDERS: PCP Internal Medicine; Visit Provider Internal Medicine
DX: D64.9 Anemia, unspecified (principal); R56.9 Unspecified convulsions; M10.9 Gout, unspecified; I48.0 Paroxysmal atrial fibrillation; Z86.73 Personal history of transient ischemic attack (TIA), and cerebral infarction without residual deficits; Z51.81 Encounter for therapeutic drug level monitoring; Z79.01 Long term (current) use of anticoagulants
CPT/HCPCS: 36415; 80053; 83540; 84550; 85025; 85610; 99211

== ENCOUNTER → 2021-07-02 10:27 | Outpatient (BNVA) | payer MEDICARE, SELFPAY | PROVIDERS: PCP Internal Medicine; Visit Provider Internal Medicine | DX: I48.0 Paroxysmal atrial fibrillation (principal); Z86.73 Personal history of transient ischemic attack (TIA), and cerebral infarction without residual deficits; Z79.01 Long term (current) use of anticoagulants; Z51.81 Encounter for therapeutic drug level monitoring | CPT/HCPCS: 85610; 99211 ==

== ENCOUNTER → 2021-07-16 10:25 | Outpatient (BNVA) | payer OTHER, SELFPAY | PROVIDERS: PCP Internal Medicine; Visit Provider Internal Medicine | DX: I48.0 Paroxysmal atrial fibrillation (principal); Z86.718 Personal history of other venous thrombosis and embolism; Z51.81 Encounter for therapeutic drug level monitoring; Z79.01 Long term (current) use of anticoagulants | CPT/HCPCS: 85610; 99211 ==

== ENCOUNTER → 2021-09-24 10:49 | Outpatient (BNVA) | payer OTHER, SELFPAY | PROVIDERS: PCP Internal Medicine; Visit Provider Internal Medicine | DX: I48.0 Paroxysmal atrial fibrillation (principal); Z86.73 Personal history of transient ischemic attack (TIA), and cerebral infarction without residual deficits; Z51.81 Encounter for therapeutic drug level monitoring; Z79.01 Long term (current) use of anticoagulants | CPT/HCPCS: 85610; 99211 ==

== ENCOUNTER → 2021-10-19 13:28 | Outpatient (BNVA) | payer OTHER, SELFPAY | PROVIDERS: PCP Internal Medicine; Visit Provider Surgery Vascular Surgery | DX: I83.11 Varicose veins of right lower extremity with inflammation (principal) | CPT/HCPCS: 99212 ==

== ENCOUNTER → 2021-11-03 10:26 | Outpatient (BNVA) | payer OTHER, SELFPAY | PROVIDERS: PCP Internal Medicine; Visit Provider Internal Medicine | DX: I48.0 Paroxysmal atrial fibrillation (principal); Z86.73 Personal history of transient ischemic attack (TIA), and cerebral infarction without residual deficits; Z51.81 Encounter for therapeutic drug level monitoring; Z79.01 Long term (current) use of anticoagulants | CPT/HCPCS: 85610; 99211 ==

== ENCOUNTER 2021-11-25 10:09 | Outpatient (REF) | payer OTHER, SELFPAY ==
[2021-11-25 10:42] LABS: MANUAL DIFF FLAG NO
[2021-11-25 11:26] LABS: Basophils Absolute Auto 0.1 X10*3/uL (0.0-0.2); Basophils Percent Auto 0.9 % (0-2); Eosinophils Absolute Auto 0.6 X10*3/uL (0.0-0.4); Eosinophils Percent Auto 7.4 % (0-4); Hematocrit 37.4 % (42.0-52.0); Hemoglobin 12.2 g/dl (14.0-18.0); Imm Gran Abs Auto 0.03 X10*3/uL (0.00-0.03); Imm Gran Pct Auto 0.4 % (0.0-0.4); Lymphocytes Percent Auto 24.6 % (20-40); Mean Corpuscular HGB Conc 32.6 g/dl (31.0-36.0); Mean Corpuscular Hemoglobin 26.5 pg (27.0-33.0); Mean Corpuscular Volume 81.3 fL (80.0-98.0); Mean Platelet Volume 11.4 fL (9.4-12.4); Monocytes Absolute Auto 0.5 X10*3/uL (0.1-1.2); Monocytes Percent Auto 5.8 % (2-11); Neutrophils Absolute Auto 4.9 x10*3/uL (2.0-8.3); Neutrophils Percent Auto 60.9 % (45-73); Platelet Count 224 X10*3/uL (160-400); Red Cell Distribution Width 14.9 % (11.0-16.0); White Blood Count 8.1 X10*3/uL (4.8-10.8)
[2021-11-25 12:32] LABS: Alanine Aminotransferase < 6 U/L (0-40); Albumin Level 3.9 g/dL (3.5-5.0); Alkaline Phosphatase 140 U/L (39-117); Anion Gap 16 (12-20); Aspartate Amino Transferase 9 U/L (5-37); Bilirubin Total 0.6 mg/dL (0.0-1.0); Blood Urea Nitrogen 17 mg/dL (9-16); Calcium 8.5 mg/dL (8.4-10.2); Carbon Dioxide 23 mmol/L (22-29); Chloride 107 mmol/L (96-108); Cholesterol 135 mg/dL; Estimated Glomerular Filt Rate 56; Glucose Fasting 130 mg/dL (60-99); HDL Cholesterol 42 mg/dL; Iron 65 mcg/dL (45-160); LDL Cholesterol Calculated 77 mg/dl; Percent Iron Saturation 27 % (15-50); Potassium 4.9 mmol/L (3.3-5.1); Sodium 141 mmol/L (135-145); Total Iron Binding Capacity 242 mcg/dL (228-428); Total Protein 6.3 g/dL (6.5-8.0); Triglycerides 83 mg/dL; Unsaturated Iron Binding 177 ug/dL; Uric Acid 5.8 mg/dL (3.4-7.0); Vitamin D 25-OH Total 70.2 ng/mL (>30)
== END 2021-11-25 10:10 | disposition home or self-care (01) ==
LOC: HO.LAB 10:09
PROVIDERS: PCP Internal Medicine; Visit Provider Internal Medicine
DX: I48.0 Paroxysmal atrial fibrillation (principal); E78.5 Hyperlipidemia, unspecified; D64.9 Anemia, unspecified; N18.9 Chronic kidney disease, unspecified; M10.9 Gout, unspecified; E55.9 Vitamin D deficiency, unspecified; Z51.81 Encounter for therapeutic drug level monitoring; Z79.01 Long term (current) use of anticoagulants
CPT/HCPCS: 36415; 80053; 80061; 82306; 83540; 84550; 85025; 85610; 99211

== ENCOUNTER 2021-11-30 11:01 | Emergency (ER) | payer OTHER, SELFPAY ==
[2021-11-30 11:37] VITALS: BP 113/72; PULSE 81; RESP 19; TEMP 36.6; O2SAT 96; BMI 32.5
--- NOTE | 2021-11-30 12:19 | ED_ITS ---
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 Patient saw a concrete engineer last week and was prescribed a topical steroid which he has been using twice daily. Over the last 24 hours they have noticed increased drainage to the wound as well as some bloody discharge from the wound with increasing pain, redness and swelling to the site. Patient denies any fevers or chills. He reports he has had this recurrent and when it gets like this antibiotics typically are helpful. Related Data Home Medications Medication Instructions Recorded Confirmed COVID-19 vacc,mRNA(Moderna)-PF 100 0.5 ml IM Q4W 09/30/20 09/24/21 mcg/0.5 mL IM susp (Moderna COVID-19 (12 yr up) Vaccine (PF)) atorvastatin 40 mg tablet 40 mg PO BEDTIME 07/05/21 09/24/21 alclometasone 0.05 % topical cream 1 appl topical BID PRN rash 11/25/21 11/25/21 Previous Rx's Medication Instructions Recorded diaper,brief,adult,disposable #100 ea 07/15/20 (Briefs, Adult-Extra Large) power wheelchair #1 ea 02/27/21 amlodipine 2.5 mg tablet 2.5 mg PO QAM 90 days #90 tabs 03/08/21 lancets 28 gauge #100 ea 06/15/21 blood sugar diagnostic (FreeStyle #100 ea 06/25/21 Lite Strips) omeprazole 20 mg capsule,delayed 20 mg PO QAM 3 months #90 caps 07/08/21 release ferrous sulfate 325 mg (65 mg 325 mg PO DAILY 60 days #60 tabs 08/09/21 iron) tablet levetiracetam 750 mg tablet 750 mg PO BID 3 months #180 tabs 09/08/21 metformin 500 mg tablet 500 mg PO BID 90 days #180 tabs 09/08/21 metoprolol succinate 25 mg 12.5 mg PO QAM #90 tabs 09/08/21 tablet,extended release 24 hr allopurinol 100 mg tablet 100 mg PO QAM #90 tabs 09/10/21 fluoxetine 20 mg capsule 20 mg PO QAM #90 caps 09/10/21 cholecalciferol (vitamin D3) 50 50 mcg PO QAM #90 tabs 10/07/21 mcg (2,000 unit) tablet (Vitamin D3) mirtazapine 15 mg tablet 15 mg PO BEDTIME 3 months #90 tabs 10/07/21 hydrocortisone 5 mg tablet (Cortef) 10 mg PO QAM 60 days #120 tabs 10/12/21 warfarin 2.5 mg tablet See Rx Instructions .Route 11/03/21 .COMPLEX #90 tabs aspirin 81 mg tablet,delayed 81 mg PO DAILY 3 months #90 tabs 11/09/21 release tamsulosin 0.4 mg capsule 0.4 mg PO DAILY 3 months #90 caps 11/09/21 amoxicillin 875 mg-potassium 1 tab PO BID #14 tabs 11/30/21 clavulanate 125 mg tablet Allergies Allergy/AdvReac Type Severity Reaction Status Date / Time No Known Allergies Allergy Verified 11/30/21 11:37 Review of Systems Review of Systems: Yes all other systems are reviewed and are negative Constitutional: Constitutional: Reports no additional constitutional complaints, Denies body ache(s), Denies chills, Denies fever(s), Denies headache(s) and Denies weakness Eyes: Eyes: Reports no additional eye complaints and Denies change in vision ENT: Reports system reviewed and no additional complaints, except as documented, Denies dizziness, Denies headache(s), Denies nasal congestion, Den ies nasal discharge and Denies neck pain Cardiovascular: Cardiovascular: Reports no additional cardiovascular complaints, Denies chest pain, Denies leg edema and Denies dyspnea Respiratory: Respiratory: Reports no additional respiratory complaints, Denies cough and Denies dyspnea Gastrointestinal: Gastrointestinal: Reports no additional gastrointestinal complaints, Denies abdominal pain, Denies diarrhea, Denies nausea and Denies vomiting Genitourinary: Genitourinary: Denies urinary incontinence Musculoskeletal: Musculoskeletal: Reports no additional musculoskeletal complaints, Denies back pain, Denies arthralgias, Denies joint swelling, Denies neck pain, Denies numbness and Denies tingling Integumentary/Breasts: Skin/Breast: Reports system reviewed and no additional complaints, except as docu, Reports erythema, Denies rash and Reports wounds Neurologic: Reports system reviewed and no additional complaints, except as documented, Denies Abnormal speech present, Denies dizziness, Denies headache(s), Denies numbness, Denies tingling and Denies weakness PMFSH Past Medical History Attestation statement: The following information was validated with the patient. Source: old records reviewed and nursing notes reviewed Medical History Abnormal laboratory test BPH (benign prostatic hyperplasia) CKD (chronic kidney disease) Diabetes Dyslipidemia Gout Hypertension Hypovitaminosis D Iron deficiency anemia Physical exam Psoriasis Seizures Stroke Surgical History History of kidney stones History of open reduction and internal fixation (ORIF) procedure Family History Family History Mother Heart problem Father Bone cancer Social History Social History Housing: Apartment Alcohol intake: former Patient Tobacco Use Status: Never used Tobacco e-Cigarette/Vaping Use: Never Used Second Hand Smoke Exposure: No Advance Directives: No Advance Directives Information Provided: No service: No Current occupational status: disabled Physical Exam Vital Signs: Vital Signs: Last Vital Signs Temp 97.9 F 11/30/21 11:37 Pulse 63 11/30/21 12:41 Resp 18 11/30/21 12:41 BP 111/73 11/30/21 12:41 Pulse Ox 99 11/30/21 12:41 O2 Del Method 11/30/21 12:41 BMI result Body Mass Index 32.5 Const: General: cooperative, healthy appearing, comfortable and no acute distress Orientation/consciousness: patient oriented x3 Limitations: no li mitations HEENT: Head: Yes normal to inspection Ears: hearing grossly normal bilaterally General nose exam: Normal external nose present Face and sinus: Yes normal facial exam Mouth: Normal oral and palatal mucosa present Throat: Yes posterior oropharynx normal Eyes: General: appearance normal, both eyes and all related structures Pupils: Equal, round and reactive pupils present Neck: Neck: Yes normal visual inspection Chest: Chest palpation & inspection: normal inspection of the chest Resp: Effort & Inspection: normal respiratory effort Auscultation: clear to auscultation bilaterally Cardio: Rate: regular rate Rhythm: regular rhythm Peripheral pulses: Peripheral pulses 2+ throughout GI: Inspection: Yes normal to inspection Palpation (GI): Soft to palpation and nontender Auscultation: normal bowel sounds Back/Spine/Pelvis: Thoracic/Lumbar Spine: thoracic and lumbar spine normal to inspection Skin: General skin exam: no rashes or lesions noted Neuro: General: patient oriented x3, no focal motor deficits and normal sensation to monofilament Cranial nerves: Yes Equal, round and reactive pupils present Cognition (Neuro): normal cognition Speech: No Abnormal speech present Gait exam (Neuro): Normal gait present Motor exam (neuro): 5/5 motor strength present throughout Extrem: Other: Slight redness noted around the wound bases and tenderness on exam No posterior calf pain. There is not a significant amount of swelling compared to the opposite extremity. There are palpable DP and PT pulses. Neurovascularly intact distally. General: Yes normal to inspection MDM - Wound/Laceration MDM Narrative Medical decision making narrative: This is a 76-year-old male who has a known history of diabetes as well as psoriasis who presents with recurrence of some wounds to the right lower extremity despite using a topical steroid that was started by his concrete engineer 1 week ago. Family is concerned as the patient has had some increase in drainage with increasing redness and swelling around the site and they are worried it may be infected. No systemic signs or symptoms concerning for infection. Overall patient is non toxic appearing and afebrile. He does have 2 wounds noted to the right lower leg and 1 of the wounds has some erythema, tenderness and swelling noted around the wound edges with some bloody drainage. There may be some mild superimposed cellulitis. Therefore will treat the patient with oral antibiotics. He should return for any worrisome signs and symptoms which were discussed with him in his family Medical Records Attestation: I reviewed the patient's medical records. Lab Data Attestation: I reviewed the patient's lab results. Discharge Plan Discharge Clinical Impression: Cellulitis Patient Disposition: Home, Self-Care Instructions: Cellulitis (ED) Additional Instructions: Return for fever, increasing redness and swelling, increasing pain Keep the wound clean dry and covered Follow-up with your concrete engineer and primary care doctor Prescriptions: New amoxicillin-pot clavulanate 875-125 mg tablet 1 tab PO BID Qty: 14 0RF No Action (DME) Briefs, Adult-Extra Large Misc See Rx Instructions .ROUTE .MEDSUPPLY Qty: 100 0RF Rx Instructions: As directed (DME) power wheelchair See Rx Instructions .Route .MEDSUPPLY Qty: 1 0RF Rx Instructions: As directed (DME) lancets 28 gauge misc See Rx Instructions .ROUTE .MEDSUPPLY Qty: 100 1RF Rx Instructions: TEST ONCE DAILY (DME) FreeStyle Lite Strips Strip See Rx Instructions .ROUTE .MEDSUPPLY Qty: 100 3RF Rx Instructions: TEST ONCE DAILY omeprazole 20 mg capsule,delayed release(DR/EC) 20 mg PO QAM 90 Days Qty: 90 2RF ferrous sulfate 325 mg (65 mg iron) tablet 325 mg PO DAILY 60 Days Qty: 60 6RF levetiracetam 750 mg tablet 750 mg PO BID 90 Days Qty: 180 0RF metformin 500 mg tablet 500 mg PO BID 90 Days Qty: 180 0RF metoprolol succinate 25 mg tablet extended release 24 hr 12.5 mg PO QAM Qty: 90 0RF fluoxetine 20 mg capsule 20 mg PO QAM Qty: 90 0RF allopurinol 100 mg tablet 100 mg PO QAM Qty: 90 0RF cholecalciferol (vitamin D3) [Vitamin D3] 50 mcg (2,000 unit) tablet 50 mcg PO QAM Qty: 90 1RF mirtazapine 15 mg tablet 15 mg PO BEDTIME 90 Days Qty: 90 3RF hydrocortisone [Cortef] 5 mg tablet 10 mg PO QAM 60 Days Qty: 120 0RF warfarin 2.5 mg tablet See Rx Instructions .ROUTE .COMPLEX Qty: 90 0RF Protocol: Dose Management Condition: Monday (Week One) Dose/Route: 5 mg Instruction: 2 x 2.5 mg tablets Condition: Monday Dose/Route: 2.5 mg Instruction: 1 x 2.5 mg tablet Condition: Monday Dose/Route: 2.5 mg Instruction: 1 x 2.5 mg tablet Condition: Monday Dose/Route: 5 mg Instruction: 2 x 2.5 mg tablets Condition: Dose/Route: 2.5 mg Instruction: 1 x 2.5 mg tablet Condition: Monday Dose/Route: 2.5 mg Instruction: 1 x 2.5 mg tablet Condition: Monday Dose/Route: 2.5 mg Instruction: 1 x 2.5 mg tablet Condition: Monday (Week Two) Dose/Route: 5 mg Instruction: 2 x 2.5 mg tablets Condition: Monday Dose/Route: 2.5 mg Instruction: 1 x 2.5 mg tablet Condition: Monday Dose/Route: 2.5 mg Instruction: 1 x 2.5 mg tablet Condition: Monday Dose/Route: 5 mg Instruction: 2 x 2.5 mg tablets Condition: Dose/Route: 2.5 mg Instruction: 1 x 2.5 mg tablet Condition: Monday Dose/Route: 2.5 mg Instruction: 1 x 2.5 mg tablet Condition: Monday Dose/Route: 2.5 mg Instruction: 1 x 2.5 mg tablet Protocol Text: Adjustment Start Date: 11/25/21 INR Value: 2.6 INR Date: 11/25/21 Recheck Date: 12/16/21 Additional Instructions: cont reg dosing balance reds and greens call with medication changes Rx Instructions: 5MG X2DAYS/ 2.5MG X5DAYS; tamsulosin 0.4 mg capsule 0.4 mg PO DAILY 90 Days Qty: 90 0RF aspirin 81 mg tablet,delayed release (DR/EC) 81 mg PO DAILY 90 Days Qty: 90 0RF amlodipine 2.5 mg tablet 2.5 mg PO QAM 90 Days Qty: 90 3RF atorvastatin 40 mg tablet 40 mg PO BEDTIME Moderna COVID-19 Vaccine (EUA) 100 mcg/0.5 mL suspension 0.5 ml IM Q4W Rx Instructions: for 2 doses alclometasone 0.05 % cream 1 appl topical BID PRN (Reason: rash) Referrals: Sang Kent MD [Primary Care Provider] - Interventions: ED Discharge Assessment Last Done: 11/30/21 12:42 Discharge Date/Time: 11/30/21 12:42 Print Language: Jamaican
[2021-11-30 12:41] VITALS: BP 111/73; PULSE 63; RESP 18; O2SAT 99
== END 2021-11-30 12:42 | disposition home or self-care (01) ==
PROVIDERS: Emergency Provider Emergency Medicine; PCP Student in an Organized Health Care Education/Training Program
DX: L03.115 Cellulitis of right lower limb (principal); Z79.899 Other long term (current) drug therapy
CPT/HCPCS: 99282; 99283

== ENCOUNTER → 2021-12-16 10:27 | Outpatient (BNVA) | payer OTHER, SELFPAY | PROVIDERS: PCP Internal Medicine; Visit Provider Internal Medicine | DX: I48.0 Paroxysmal atrial fibrillation (principal); Z86.73 Personal history of transient ischemic attack (TIA), and cerebral infarction without residual deficits; Z79.01 Long term (current) use of anticoagulants; Z51.81 Encounter for therapeutic drug level monitoring | CPT/HCPCS: 85610; 99211 ==

== ENCOUNTER → 2021-12-30 10:21 | Outpatient (BNVA) | payer OTHER, SELFPAY | PROVIDERS: PCP Internal Medicine; Visit Provider Internal Medicine | DX: I48.0 Paroxysmal atrial fibrillation (principal); Z79.01 Long term (current) use of anticoagulants; Z86.73 Personal history of transient ischemic attack (TIA), and cerebral infarction without residual deficits | CPT/HCPCS: 85610; 99211 ==

== ENCOUNTER → 2022-01-13 10:18 | Outpatient (BNVA) | payer OTHER, SELFPAY | PROVIDERS: PCP Internal Medicine; Visit Provider Internal Medicine | DX: I48.0 Paroxysmal atrial fibrillation (principal); Z86.73 Personal history of transient ischemic attack (TIA), and cerebral infarction without residual deficits; Z79.01 Long term (current) use of anticoagulants; Z51.81 Encounter for therapeutic drug level monitoring | CPT/HCPCS: 85610; 99211 ==

== ENCOUNTER → 2022-02-03 10:17 | Outpatient (BNVA) | payer OTHER, SELFPAY | PROVIDERS: PCP Internal Medicine; Visit Provider Internal Medicine | DX: I48.0 Paroxysmal atrial fibrillation (principal); Z86.73 Personal history of transient ischemic attack (TIA), and cerebral infarction without residual deficits; Z79.01 Long term (current) use of anticoagulants; Z51.81 Encounter for therapeutic drug level monitoring | CPT/HCPCS: 85610; 99211 ==

== ENCOUNTER 2022-04-13 10:11 | Outpatient (REF) | payer OTHER, SELFPAY ==
--- NOTE | ~2022-04-13 | US_ITS ---
EXAMINATION: RIGHT AND LEFT LOWER EXTREMITY VENOUS ULTRASOUND (REFLUX EXAM) CLINICAL INDICATION: Varicose veins right lower extremity with inflammation. Status post right greater saphenous vein RFA 01/21/2019. COMPARISON: 07/26/2018 TECHNIQUE: Color flow triplex imaging and compression Doppler was performed to evaluate both the deep and the superficial systems bilaterally. To evaluate the superficial system, the examination was performed in the upright position. Color-flow Doppler ultrasound and compression ultrasound were utilized. In addition, maneuvers were utilized to demonstrate reflux. FINDINGS: 1. DEEP VENOUS ULTRASOUND OF THE RIGHT LOWER EXTREMITY: Respiratory variation, normal compression and augmented flow are noted in the right common femoral vein as well as the right popliteal vein and there is no evidence of deep venous thrombosis at these locations. There is deep venous insufficiency/reflux at the common femoral vein up to approximately 0.9 seconds, at the mid femoral vein up to 1.4 seconds, and at the popliteal vein at 1.2 seconds. There is no evidence of a popliteal fossa cyst or popliteal artery aneurysm. 2. SUPERFICIAL ULTRASOUND WITH DOPPLER OF RIGHT LOWER EXTREMITY: The right great saphenous vein at the saphenofemoral junction measures 10 mm, at the midthigh not visualized, [id number] not visualized, [id number] 3 mm, at midcalf 2 mm and at the ankle measures 3 mm. At the level of the knee there is reflux up to 1.5 seconds in duration. At the ankle there is reflux up to 0.9 seconds in duration. The right small saphenous vein measures 3 mm and shows no reflux. No reflux is identified from saphenofemoral junction through [id number]. At the level of the knee there is reflux up to 1.5 seconds and at the ankle there is reflux to 0.9 seconds. 3. DEEP VENOUS ULTRASOUND OF THE LEFT LOWER EXTREMITY: Respiratory variation, normal compression and augmented flow are noted in the left common femoral vein as well as the left popliteal vein and there is no evidence of deep venous thrombosis at these locations. There is deep system insufficiency at the common femoral vein level of 1.3 seconds, at the mid femoral vein level of 2.5 seconds, and at the popliteal vein of 2 seconds. There is no evidence of a Díaz's cyst. 4. SUPERFICIAL ULTRASOUND WITH DOPPLER OF LEFT LOWER EXTREMITY: Left great saphenous vein at the saphenofemoral junction measures 7 mm, at the midthigh 6 mm, [id number] 3 mm, [id number] 4 mm, at midcalf 2 mm and at the ankle measures 3 mm. At the level of the midthigh there is reflux up to 1.6 seconds with reflux seen from the midthigh through the ankle of greater than 1 second. The left small saphenous vein measures 4 mm and shows reflux at the distal calf of 1.8 seconds with no reflux at the level of the saphenofemoral junction and midcalf. US/US venous duplex LE BI IMPRESSION: 1. Reflux within the deep system bilaterally as well as within the greater saphenous veins within the right lower extremity below the knee and left lower extremity midthigh through ankle. 2. No acute deep venous thrombosis.
== END 2022-04-13 10:12 | disposition home or self-care (01) ==
LOC: HO.US 10:11
PROVIDERS: Visit Provider Surgery Vascular Surgery
DX: I48.0 Paroxysmal atrial fibrillation (principal); I83.11 Varicose veins of right lower extremity with inflammation; Z51.81 Encounter for therapeutic drug level monitoring; Z79.01 Long term (current) use of anticoagulants
CPT/HCPCS: 85610; 93970; 99211

== ENCOUNTER 2022-04-17 11:21 | Emergency (ER) | payer OTHER, SELFPAY ==
--- NOTE | ~2022-04-17 | XR_ITS ---
EXAMINATION:XR ankle LT min 3V CLINICAL INFORMATION: Reason for Exam Atraumatic left ankle pain/swelling COMPARISON: None TECHNIQUE: AP, lateral, and mortise views of the ankle. FINDINGS: Degenerative osteoarthritic changes intertarsal and tarsometatarsal joints. Soft tissue swelling medial malleolus. There is no fracture or dislocation. Ankle mortise is preserved. Tibial plafond and talar dome are intact. Medial and lateral malleoli are properly aligned. Subtalar joint is normal. There is no osteolytic or osteoblastic lesions. There are calcaneal spurs. XR/XR ankle LT min 3V IMPRESSION: * No fracture. * Soft tissue swelling medial malleolus. * Underlying degenerative osteoarthritis. * There are calcaneal spurs.
--- NOTE | ~2022-04-17 | US_ITS ---
EXAMINATION: US VENOUS ULTRASOUND WITH DOPPLER LOWER EXTREMITY, BILATERAL CLINICAL INFORMATION: Pain COMPARISON: None TECHNIQUE: Ultrasound of the deep veins is performed from the hip to the calf with compression sonography and color and pulse Doppler assessment. Spectral analysis with color-flow imaging is performed. FINDINGS: RIGHT: There is normal venous compression and respiratory variation and augmented flow. The visualized common femoral vein, superficial femoral vein, profunda femoral vein, popliteal vein, and the trifurcation region shows no evidence of deep venous thrombosis. There is no significant popliteal fossa cyst. LEFT: There is normal venous compression and respiratory variation and augmented flow. The visualized common femoral vein, superficial femoral vein, profunda femoral vein, popliteal vein, and the trifurcation region shows no evidence of deep venous thrombosis. There is no significant popliteal fossa cyst. If the patient's symptoms persist, followup ultrasound in 5 days 7 days might be of value to exclude proximal propagation from a non-visualized calf vein. US/US venous duplex LE BI IMPRESSION: No DVT demonstrated in the both lower extremities.
[2022-04-17 11:24] VITALS: BP 116/82; PULSE 110; RESP 19; TEMP 36.1; O2SAT 95; BMI 30.5
--- NOTE | 2022-04-17 11:25 | ED.GENADULT ---
HPI - General Adult General Chief complaint: Extremity Injury, Lower <MARGARITO Danielle Last Filed: 04/17/22 16:18> Stated complaint: left lower leg swelling, pain <MARGARITO Danielle Last Filed: 04/17/22 16:18> Time Seen by Provider: 04/17/22 13:51 <MARGARITO Danielle Last Filed: 04/17/22 16:18> Source: patient and park interpreter <MARGARITO Danielle Last Filed: 04/17/22 16:18> Mode of arrival: wheelchair <MARGARITO Danielle Last Filed: 04/17/22 16:18> Limitations: language barrier <MARGARITO Danielle Last Filed: 04/17/22 16:18> History of Present Illness HPI narrative: 77yoM who is [place]-speakingc a PMHx of varicose veins, CKD, iron deficiency anemia, cirrhosis, CVA, seizure disorder, hyperlipidemia, BPH, gout, hypertension and diabetes currently on anticoagulation who is presenting to the ED with complaints of bilateral lower leg swelling for the past 2-3 days worse today. Reports he has had similar episodes in the past and was diagnosed with a cellulitis back in June of 2021 and November of 2021. He denies any fevers, dizziness, headaches, neck pain/stiffness, trouble swallowing or breathing, cough, sputum production, shortness of breath, dyspnea exertion, chest pain, paresthesias, orthopnea, palpitations, abdominal pain, nausea/vomiting/diarrhea, black or bloody stools, calf tenderness, recent travel or sick contacts, recent falls or trauma, rashes or any other symptoms complaints or concerns at this time. <MARGARITO Flores - Last Filed: 04/17/22 16:14> MD complaint: Bilateral leg swelling/redness <MARGARITO Flores - Last Filed: 04/17/22 16:14> Onset (ago): day(s) (Past few days worse today) <MARGARITO Flores - Last Filed: 04/17/22 16:14> Related Data Home medications: Home Medications Medication Instructions Recorded Confirmed alclometasone 0.05 % topical cream 1 appl topical BID PRN rash 11/25/21 01/13/22 Previous Rx's Medication Instructions Recorded diaper,brief,adult,disposable #100 ea 07/15/20 (Briefs, Adult-Extra Large) power wheelchair #1 ea 02/27/21 lancets 28 gauge #100 ea 06/15/21 blood sugar diagnostic (FreeStyle #100 ea 06/25/21 Lite Strips) ferrous sulfate 325 mg (65 mg 325 mg PO DAILY 60 days #60 tabs 08/09/21 iron) tablet mirtazapine 15 mg tablet 15 mg PO BEDTIME 3 months #90 tabs 10/07/21 metoprolol succinate 25 mg 12.5 mg PO QAM #90 tabs 12/03/21 tablet,extended release 24 hr omeprazole 20 mg capsule,delayed 20 mg PO QAM 3 months #90 caps 02/01/22 release allopurinol 100 mg tablet 100 mg PO QAM #90 tabs 03/02/22 amlodipine 2.5 mg tablet 2.5 mg PO QAM 90 days #90 tabs 03/02/22 atorvastatin 40 mg tablet 40 mg PO BEDTIME 90 days #90 tabs 03/02/22 fluoxetine 20 mg capsule 20 mg PO QAM #90 caps 03/02/22 levetiracetam 750 mg tablet 750 mg PO BID 3 months #180 tabs 03/02/22 metformin 500 mg tablet 500 mg PO BID 90 days #180 tabs 03/02/22 aspirin 81 mg tablet,delayed 81 mg PO DAILY 3 months #90 tabs 03/05/22 release cholecalciferol (vitamin D3) 50 50 mcg PO QAM #90 tabs 03/05/22 mcg (2,000 unit) tablet (Vitamin D3) hydrocortisone 5 mg tablet (Cortef) 10 mg PO QAM 60 days #120 tabs 03/05/22 tamsulosin 0.4 mg capsule 0.4 mg PO DAILY 3 months #90 caps 03/05/22 warfarin 2.5 mg tablet See Rx Instructions .Route 03/05/22 .COMPLEX #90 tabs cephalexin 500 mg capsule 500 mg PO Q6H 10 days #40 caps 04/17/22 doxycycline monohydrate 100 mg 100 mg PO BID Cellulitis 10 days 04/17/22 tablet #20 tabs <MARGARITO Danielle - Last Filed: 04/17/22 16:18> Allergies/adverse reactions: Allergies Allergy/AdvReac Type Severity Reaction Status Date / Time No Known Allergies Allergy Verified 12/28/22 11:59 <MARGARITO Danielle - Last Filed: 04/17/22 16:18> Review of Systems Review of Systems: Constitutional : No Weight loss, No Fever, No Chills, No Night Sweats, No Fatigue, No Malaise ENT/Mouth : No Hearing loss, No Ear Pain, No Nasal Congestion, No Sinus Pain, No Hoarseness, No sore throat, No Rhinorrhea, No Swallowing Difficulty Eyes: No Eye Pain, No Swelling, No Redness, No Foreign Body, No Discharge, No Vision Changes Cardiovascular : + bilateral leg swelling, No Chest Pain, No SOB, No Dyspnea on Exertion, No Orthopnea, No Palpitations Respiratory : No Cough, No Sputum, No Wheezing, No Smoke Exposure, No Dyspnea Gastrointestinal : No Nausea, No Vomiting, No Diarrhea, No Constipation, No abdominal Pain, No Hematochezia, No Melena Genitourinary : no irregular bleeding, No Dysuria, No Urinary Frequency, No Hematuria, No Urinary Incontinence, No Urgency, No Flank Pain, No Urinary Flow Changes, No Hesitancy Musculoskeletal : No joint pain, No Myalgias, No Joint Swelling Skin : + abrasions to lower legs with erythema and tender to palpation, No additional Skin Lesions, No rash Neuro : No Weakness, No Numbness, No Paresthesias, No Loss of Consciousness, No Dizziness, No Headache Psych : No Anxiety/Panic, No Depression, No SI/HI/AH/VH, No Social Issues, Heme/Lymph: No Bruising, No Bleeding,No Lymphadenopathy Endocrine : No Polyuria, No Polydipsia, No Temperature Intolerance <MARGARITO Flores - Last Filed: 04/17/22 16:14> Yes all other systems are reviewed and are negative <MARGARITO Flores - Last Filed: 04/17/22 16:14> [facility] Past Medical History Attestation statement: The following information was validated with the patient. <MARGARITO Flores - Last Filed: 04/17/22 16:14> Source: old records reviewed and nursing notes reviewed <MARGARITO Flores - Last Filed: 04/17/22 16:14> Medical History: Medical History Abnormal laboratory test BPH (benign prostatic hyperplasia) CKD (chronic kidney disease) Diabetes Dyslipidemia Gout Hypertension Hypovitaminosis D Iron deficiency anemia Physical exam Psoriasis Seizures Stroke <MARGARITO Danielle - Last Filed: 04/17/22 16:18> Surgical History: Surgical History History of kidney stones History of open reduction and internal fixation (ORIF) procedure <MARGARITO Danielle - Last Filed: 04/17/22 16:18> Family History Family History: Family History Mother Heart problem Father Bone cancer <MARGARITO Danielle - Last Filed: 04/17/22 16:18> Social History Social History: Social History Housing: Apartment Alcohol intake: former Patient Tobacco Use Status: Never used Tobacco e-Cigarette/Vaping Use: Never Used Second Hand Smoke Exposure: No Advance Directives: No Advance Directives Information Provided: Yes service: No Current occupational status: disabled <MARGARITO Dnaielle - Last Filed: 04/17/22 16:18> Physical Exam ED Vital Signs: Vital Signs - 24 hr 04/17/22 11:24 Temperature 97 F Pulse Rate 110 H Respiratory Rate 19 Blood Pressure 116/82 Pulse Oximetry 95 Oxygen Delivery Method Room Air BMI result Body Mass Index 30.5 <MARGARITO Danielle - Last Filed: 04/17/22 16:18> Vital Signs - 24 hr 04/17/22 11:24 Temperature 97 F Pulse Rate 110 H Respiratory Rate 19 Blood Pressure 116/82 Pulse Oximetry 95 Oxygen Delivery Method Room Air BMI result Body Mass Index 30.5 vital signs have been reviewed as normal and appeared to be correct. Blood pressure normal. Heart rate 110. Respiration rate normal. Temperature normal. Oxygen saturation normal. <MARGARITO Flores - Last Filed: 04/17/22 16:14> Appearance: Alert. Oriented X3. No acute distress. Head: Normal external exam. Normocephalic. Atraumatic. Eyes: PERRLA. EOMI. Conjunctiva and sclera normal. Eyelids normal. ENT: EAC normal. TM's Normal. Pharynx normal. Uvula midline. Moist mucous membranes. No lesions/ulcerations or masses noted on the tongue. Normal voice. No trismus noted. No drooling noted. No muffled voice noted. Neck: Normal inspection. Neck supple. FROM. No adenopathy. Thyroid Normal. No tracheal deviation noted. No crepitus is noted. No meningeal signs. No neck mass noted. No signs of trauma noted. CVS: Normal heart rate and rhythm. Heart sound normal. Pulses normal throughout. No murmurs/rales/gallops. Respiratory: No respiratory distress. Painless inspiration. Breath sounds normal. No wheezes/rales/rhonchi noted. Chest nontender. No crepitus is noted. No signs of trauma noted. No accessory muscle usage noted or decreased air movement noted. No signs of trauma. Abdomen: Soft and nontender. Bowel sounds normal in all 4 quadrants. No distention noted. No organomegaly noted. No visible injury noted. Back: Full range of motion noted. Skin: Skin warm and dry. Normal skin color. Normal skin turgor. Patient noted to have abrasions with mild tenderness palpation/warm to touch and surrounding erythema to bilateral lower extremities consistent with possible cellulitis infection. No additional rashes/lesions/lacerations noted. Extremities: No lower extremity edema. + left calf tenderness is noted. No Right calf tenderness noted. Extremities exhibit normal range of motion and nontender. Neuro: Oriented X 3. No motor deficit. No sensory deficit. Reflexes normal. Normal steady gait. No focal neuro deficits noted. CN's II-XII intact bilaterally? Vascular: + radial pulses/+ 2 distal pedal pulses/+2 dorsalis pedis b/l. Normal cap refill. No cyanosis noted to upper extremity nails and lower extremity toes nails. <MARGARITO Flores - Last Filed: 04/17/22 16:14> Course Course Course Narrative: RME performed by Leah Bruno PA-C. Patient is a 77 year old male presenting to the emergency department with bilateral lower leg pain. Patient states that his legs are swelling and causing more pain. Patient states that this has been going on for 5 months. Labs and imaging ordered. Patient placed back in waiting room pending results and bed availabiltiy. <MARGARITO Danielle - Last Filed: 04/17/22 16:18> Reevaluation(s) Reevaluation #1: 77yoM who is [place]-speaking[place] a PMHx of varicose veins, CKD, iron deficiency anemia, cirrhosis, CVA, seizure disorder, hyperlipidemia, BPH, gout, hypertension and diabetes currently on anticoagulation who is presenting to the ED with complaints of bilateral lower leg swelling for the past 2-3 days worse today. Reports he has had similar episodes in the past and was diagnosed with a cellulitis back in June of 2021 and November of 2021. Labs were ordered in triage and ultrasound Labs reviewed - mild anemia with an H&H of 12.5/38.5. - BUN 18. - Random glucose 128. - Magnesium 1.2. - Alkaline phosphate 150. - BNP 159. - Total protein 6.4. Otherwise all other labs are within normal limits. Venous duplex ultrasound of bilateral lower extremity negative for any DVTs. Plan: - Therefore at this time will provide 2 gm of IV magnesium and Xray of left ankle. Provide PO tylenol c codeine and re-evaluate <MARGARITO Flores - Last Filed: 04/17/22 16:14> Time: 14:11 <MARGARITO Flores - Last Filed: 04/17/22 16:14> Reevaluation #2: X-ray of left ankle negative for any acute processes only revealed chronic changes. Therefore at this time will DC home with p.o. antibiotics for cellulitis infection instructions return if any new or worsening symptoms follow up with primary care provider. Patient has and agrees with this plan. <MARGARITO Flores - Last Filed: 04/17/22 16:14> Time: 16:10 <MARGARITO Flores - Last Filed: 04/17/22 16:14> Medications Administered Discontinued Medications Generic Name Dose Route Start Last Admin Trade Name Freq PRN Reason Stop Dose Admin Acetaminophen/Codeine Phosphate 1 tab 04/17/22 14:11 04/17/22 15:04 Acetaminophen With Codeine # 3 Tablet PO 04/17/22 14:12 1 tab ONCE ONE Administration Magnesium Sulfate 2 gm in 50 mls @ 25 mls/hr 04/17/22 14:14 04/17/22 15:05 Magnesium Sulfate/H2o IV 04/17/22 16:13 25 mls/hr ONCE ONE Administration <MARGARITO Danielle - Last Filed: 04/17/22 16:18> Medications Administered Discontinued Medications Generic Name Dose Route Start Last Admin Trade Name [place] PRN Reason Stop Dose Admin Acetaminophen/Codeine Phosphate 1 tab 04/17/22 14:11 04/17/22 15:04 Acetaminophen With Codeine # 3 Tablet PO 04/17/22 14:12 1 tab ONCE ONE Administration Magnesium Sulfate 2 gm in 50 mls @ 25 mls/hr 04/17/22 14:14 04/17/22 15:05 Magnesium Sulfate/H2o IV 04/17/22 16:13 25 mls/hr ONCE ONE Administration <MARGARITO Flores - Last Filed: 04/17/22 16:14> Medical Decision Making Lab Data MDM Lab Attestation statement: I reviewed the patient's lab results. <MARGARITO Flores - Last Filed: 04/17/22 16:14> Result Diagrams: : 04/17/22 13:35 04/17/22 13:35 <MARGARITO Danielle - Last Filed: 04/17/22 16:18> Labs: Lab Results 04/17/22 04/17/22 04/17/22 Range/Units 13:35 13:35 13:35 WBC 8.8 (4.8-10.8) X10*3/uL RBC 4.74 (4.60-5.80) X10*6/uL Hgb 12.5 L (14.0-18.0) g/dl Hct 38.5 L (42.0-52.0) % MCV 81.2 (80.0-98.0) fL MCH 26.4 L (27.0-33.0) pg MCHC 32.5 (31.0-36.0) g/dl RDW 14.6 (11.0-16.0) % Plt Count 216 (160-400) X10*3/uL MPV 10.7 (9.4-12.4) fL Immature Gran % (Auto) 0.2 (0.0-0.4) % Neut % (Auto) 74.7 H (45-73) % Lymph % (Auto) 13.8 L (20-40) % [place] % (Auto) 5.6 (2-11) % Eos % (Auto) 4.9 H (0-4) % Baso % (Auto) 0.8 (0-2) % Lymph # (Auto) 1.2 (1.2-4.9) X10*3/uL [place] # (Auto) 0.5 (0.1-1.2) X10*3/uL Eos # (Auto) 0.4 (0.0-0.4) X10*3/uL Baso # (Auto) 0.1 (0.0-0.2) X10*3/uL Abs Immat Gran (auto) 0.02 (0.00-0.03) X10*3/uL Absolute Neuts (auto) 6.6 (2.0-8.3) x10*3/uL Absolute Nucleated RBC 0.000 (0.0-0.012) X10*3/uL Nucleated RBC % (auto) 0.0 (0.0-0.2) /100WBC PT (10.0-13.1) SEC INR (0.9-1.1) Sodium 141 (135-145) mmol/L Potassium 4.9 (3.3-5.1) mmol/L Chloride 105 (96-108) mmol/L Carbon Dioxide 26 (22-29) mmol/L Anion Gap 15 (12-20) BUN 18 H (9-16) mg/dL Creatinine 1.31 (0.5-1.4) mg/dL Estim Creat Clear Calc 62.7 Estimated GFR 53 Random Glucose 128 H (60-115) mg/dL Calcium 8.8 (8.4-10.2) mg/dL Magnesium 1.2 L* (1.6-2.6) mg/dL Total Bilirubin 0.8 (0.0-1.0) mg/dL AST 9 (5-37) U/L ALT 7 (0-40) U/L Alkaline Phosphatase 150 H (39-117) U/L B-Natriuretic Peptide 159 H (<100) pg/mL Total Protein 6.4 L (6.5-8.0) g/dL Albumin 4.0 (3.5-5.0) g/dL 04/17/22 Range/Units 14:58 WBC (4.8-10.8) X10*3/uL RBC (4.60-5.80) X10*6/uL Hgb (14.0-18.0) g/dl Hct (42.0-52.0) % MCV (80.0-98.0) fL MCH (27.0-33.0) pg MCHC (31.0-36.0) g/dl RDW (11.0-16.0) % Plt Count (160-400) X10*3/uL MPV (9.4-12.4) fL Immature Gran % (Auto) (0.0-0.4) % Neut % (Auto) (45-73) % Lymph % (Auto) (20-40) % [place] % (Auto) (2-11) % Eos % (Auto) (0-4) % Baso % (Auto) (0-2) % Lymph # (Auto) (1.2-4.9) X10*3/uL [place] # (Auto) (0.1-1.2) X10*3/uL Eos # (Auto) (0.0-0.4) X10*3/uL Baso # (Auto) (0.0-0.2) X10*3/uL Abs Immat Gran (auto) (0.00-0.03) X10*3/uL Absolute Neuts (auto) (2.0-8.3) x10*3/uL Absolute Nucleated RBC (0.0-0.012) X10*3/uL Nucleated RBC % (auto) (0.0-0.2) /100WBC PT 31.0 H (10.0-13.1) SEC INR 2.6 H (0.9-1.1) Sodium (135-145) mmol/L Potassium (3.3-5.1) mmol/L Chloride (96-108) mmol/L Carbon Dioxide (22-29) mmol/L Anion Gap (12-20) BUN (9-16) mg/dL Creatinine (0.5-1.4) mg/dL Estim Creat Clear Calc Estimated GFR Random Glucose (60-115) mg/dL Calcium (8.4-10.2) mg/dL Magnesium (1.6-2.6) mg/dL Total Bilirubin (0.0-1.0) mg/dL AST (5-37) U/L ALT (0-40) U/L Alkaline Phosphatase (39-117) U/L B-Natriuretic Peptide (<100) pg/mL Total Protein (6.5-8.0) g/dL Albumin (3.5-5.0) g/dL <MARGARITO Danielle - Last Filed: 04/17/22 16:18> Lab Results 04/17/22 04/17/22 04/17/22 Range/Units 13:35 13:35 13:35 WBC 8.8 (4.8-10.8) X10*3/uL RBC 4.74 (4.60-5.80) X10*6/uL Hgb 12.5 L (14.0-18.0) g/dl Hct 38.5 L (42.0-52.0) % MCV 81.2 (80.0-98.0) fL MCH 26.4 L (27.0-33.0) pg MCHC 32.5 (31.0-36.0) g/dl RDW 14.6 (11.0-16.0) % Plt Count 216 (160-400) X10*3/uL MPV 10.7 (9.4-12.4) fL Immature Gran % (Auto) 0.2 (0.0-0.4) % Neut % (Auto) 74.7 H (45-73) % Lymph % (Auto) 13.8 L (20-40) % [place] % (Auto) 5.6 (2-11) % Eos % (Auto) 4.9 H (0-4) % Baso % (Auto) 0.8 (0-2) % Lymph # (Auto) 1.2 (1.2-4.9) X10*3/uL [place] # (Auto) 0.5 (0.1-1.2) X10*3/uL Eos # (Auto) 0.4 (0.0-0.4) X10*3/uL Baso # (Auto) 0.1 (0.0-0.2) X10*3/uL Abs Immat Gran (auto) 0.02 (0.00-0.03) X10*3/uL Absolute Neuts (auto) 6.6 (2.0-8.3) x10*3/uL Absolute Nucleated RBC 0.000 (0.0-0.012) X10*3/uL Nucleated RBC % (auto) 0.0 (0.0-0.2) /100WBC PT (10.0-13.1) SEC INR (0.9-1.1) Sodium 141 (135-145) mmol/L Potassium 4.9 (3.3-5.1) mmol/L Chloride 105 (96-108) mmol/L Carbon Dioxide 26 (22-29) mmol/L Anion Gap 15 (12-20) BUN 18 H (9-16) mg/dL Creatinine 1.31 (0.5-1.4) mg/dL Estim Creat Clear Calc 62.7 Estimated GFR 53 Random Glucose 128 H (60-115) mg/dL Calcium 8.8 (8.4-10.2) mg/dL Magnesium 1.2 L* (1.6-2.6) mg/dL Total Bilirubin 0.8 (0.0-1.0) mg/dL AST 9 (5-37) U/L ALT 7 (0-40) U/L Alkaline Phosphatase 150 H (39-117) U/L B-Natriuretic Peptide 159 H (<100) pg/mL Total Protein 6.4 L (6.5-8.0) g/dL Albumin 4.0 (3.5-5.0) g/dL 04/17/22 Range/Units 14:58 WBC (4.8-10.8) X10*3/uL RBC (4.60-5.80) X10*6/uL Hgb (14.0-18.0) g/dl Hct (42.0-52.0) % MCV (80.0-98.0) fL MCH (27.0-33.0) pg MCHC (31.0-36.0) g/dl RDW (11.0-16.0) % Plt Count (160-400) X10*3/uL MPV (9.4-12.4) fL Immature Gran % (Auto) (0.0-0.4) % Neut % (Auto) (45-73) % Lymph % (Auto) (20-40) % [place] % (Auto) (2-11) % Eos % (Auto) (0-4) % Baso % (Auto) (0-2) % Lymph # (Auto) (1.2-4.9) X10*3/uL [place] # (Auto) (0.1-1.2) X10*3/uL Eos # (Auto) (0.0-0.4) X10*3/uL Baso # (Auto) (0.0-0.2) X10*3/uL Abs Immat Gran (auto) (0.00-0.03) X10*3/uL Absolute Neuts (auto) (2.0-8.3) x10*3/uL Absolute Nucleated RBC (0.0-0.012) X10*3/uL Nucleated RBC % (auto) (0.0-0.2) /100WBC PT 31.0 H (10.0-13.1) SEC INR 2.6 H (0.9-1.1) Sodium (135-145) mmol/L Potassium (3.3-5.1) mmol/L Chloride (96-108) mmol/L Carbon Dioxide (22-29) mmol/L Anion Gap (12-20) BUN (9-16) mg/dL Creatinine (0.5-1.4) mg/dL Estim Creat Clear Calc Estimated GFR Random Glucose (60-115) mg/dL Calcium (8.4-10.2) mg/dL Magnesium (1.6-2.6) mg/dL Total Bilirubin (0.0-1.0) mg/dL AST (5-37) U/L ALT (0-40) U/L Alkaline Phosphatase (39-117) U/L B-Natriuretic Peptide (<100) pg/mL Total Protein (6.5-8.0) g/dL Albumin (3.5-5.0) g/dL <MARGARITO Flores - Last Filed: 04/17/22 16:14> Independent Interpretation I performed an independent interpretation of an: Ultrasound <MARGARITO Flores - Last Filed: 04/17/22 16:14> Interpretation: Venous duplex ultrasound of bilateral lower extremity FINDINGS: RIGHT: There is normal venous compression and respiratory variation and augmented flow. The visualized common femoral vein, superficial femoral vein, profunda femoral vein, popliteal vein, and the trifurcation region shows no evidence of deep venous thrombosis. ? There is no significant popliteal fossa cyst. LEFT: There is normal venous compression and respiratory variation and augmented flow. The visualized common femoral vein, superficial femoral vein, profunda femoral vein, popliteal vein, and the trifurcation region shows no evidence of deep venous thrombosis. ? There is no significant popliteal fossa cyst. If the patient's symptoms persist, followup ultrasound in 5 days 7 days might be of value to exclude proximal propagation from a non-visualized calf vein. US/US venous duplex LE BI IMPRESSION: No DVT demonstrated in the both lower extremities. X-ray of right ankle/foot FINDINGS: Degenerative osteoarthritic changes intertarsal and tarsometatarsal joints. Soft tissue swelling medial malleolus. There is no fracture or dislocation. Ankle mortise is preserved. Tibial plafond and talar dome are intact. Medial and lateral malleoli are properly aligned. Subtalar joint is normal. There is no osteolytic or osteoblastic lesions. There are calcaneal spurs. XR/XR ankle LT min 3V IMPRESSION: ? *? No fracture. ? *? Soft tissue swelling medial malleolus. ? *? Underlying degenerative osteoarthritis. ? *? There are calcaneal spurs. <MARGARITO Flores - Last Filed: 04/17/22 16:14> Radiology Impression Discussion of test interpretation with radiology: I have reviewed the radiologist's reading. <MARGARITO Flores - Last Filed: 04/17/22 16:14> External Record Review External record reviewed: Inpatient record, Office record, Outpatient record, Prior outpatient labs, Prior outpatient radiology, Primary care record and Outside ED record <MARGARITO Flores - Last Filed: 04/17/22 16:14> Prescription Management I considered prescription management with: Pain Medication <MARGARITO Flores Last Filed: 04/17/22 16:14> Chronic Conditions Patient?s care impacted by: Diabetes and Hypertension <MARGARITO Flores Last Filed: 04/17/22 16:14> Critical Care Time Critical Care Time Critical Care Time: Yes <MARGARITO Flores Last Filed: 04/17/22 16:14> Total Critical Care Time: 60 <MARGARITO Flores Last Filed: 04/17/22 16:14> Attestation: I personally attest to this time spent taking care of the patient <MARGARITO Flores Last Filed: 04/17/22 16:14> Discharge Plan Discharge Clinical Impression: Cellulitis, Low blood magnesium level <MARGARITO Danielle Last Filed: 04/17/22 16:18> Patient Disposition: Home, Self-Care <MARGARITO Danielle Last Filed: 04/17/22 16:18> Instructions: Cellulitis (ED) <MARGARITO Danielle Last Filed: 04/17/22 16:18> Prescriptions: New doxycycline monohydrate 100 mg tablet 100 mg PO BID 10 Days Qty: 20 0RF cephalexin 500 mg capsule 500 mg PO Q6H 10 Days Qty: 40 0RF No Action (DME) Briefs, Adult-Extra Large Misc See Rx Instructions .ROUTE .MEDSUPPLY Qty: 100 0RF Rx Instructions: As directed (DME) power wheelchair See Rx Instructions .Route .MEDSUPPLY Qty: 1 0RF Rx Instructions: As directed (DME) lancets 28 gauge misc See Rx Instructions .ROUTE .MEDSUPPLY Qty: 100 1RF Rx Instructions: TEST ONCE DAILY (DME) FreeStyle Lite Strips Strip See Rx Instructions .ROUTE .MEDSUPPLY Qty: 100 3RF Rx Instructions: TEST ONCE DAILY ferrous sulfate 325 mg (65 mg iron) tablet 325 mg PO DAILY 60 Days Qty: 60 6RF mirtazapine 15 mg tablet 15 mg PO BEDTIME 90 Days Qty: 90 3RF metoprolol succinate 25 mg tablet extended release 24 hr 12.5 mg PO QAM Qty: 90 0RF omeprazole 20 mg capsule,delayed release(DR/EC) 20 mg PO QAM 90 Days Qty: 90 2RF atorvastatin 40 mg tablet 40 mg PO BEDTIME 90 Days Qty: 90 3RF amlodipine 2.5 mg tablet 2.5 mg PO QAM 90 Days Qty: 90 3RF levetiracetam 750 mg tablet 750 mg PO BID 90 Days Qty: 180 0RF metformin 500 mg tablet 500 mg PO BID 90 Days Qty: 180 0RF allopurinol 100 mg tablet 100 mg PO QAM Qty: 90 0RF fluoxetine 20 mg capsule 20 mg PO QAM Qty: 90 0RF cholecalciferol (vitamin D3) [Vitamin D3] 50 mcg (2,000 unit) tablet 50 mcg PO QAM Qty: 90 1RF warfarin 2.5 mg tablet See Rx Instructions .ROUTE .COMPLEX Qty: 90 0RF Protocol: Dose Management Condition: Monday (Week One) Dose/Route: 5 mg Instruction: 2 x 2.5 mg tablets Condition: Monday Dose/Route: 2.5 mg Instruction: 1 x 2.5 mg tablet Condition: Monday Dose/Route: 2.5 mg Instruction: 1 x 2.5 mg tablet Condition: Monday Dose/Route: 2.5 mg Instruction: 1 x 2.5 mg tablet Condition: Dose/Route: 2.5 mg Instruction: 1 x 2.5 mg tablet Condition: Monday Dose/Route: 2.5 mg Instruction: 1 x 2.5 mg tablet Condition: Monday Dose/Route: 2.5 mg Instruction: 1 x 2.5 mg tablet Condition: Monday (Week Two) Dose/Route: 5 mg Instruction: 2 x 2.5 mg tablets Condition: Monday Dose/Route: 2.5 mg Instruction: 1 x 2.5 mg tablet Condition: Monday Dose/Route: 2.5 mg Instruction: 1 x 2.5 mg tablet Condition: Monday Dose/Route: 5 mg Instruction: 2 x 2.5 mg tablets Condition: Dose/Route: 2.5 mg Instruction: 1 x 2.5 mg tablet Condition: Monday Dose/Route: 2.5 mg Instruction: 1 x 2.5 mg tablet Condition: Monday Dose/Route: 2.5 mg Instruction: 1 x 2.5 mg tablet Protocol Text: Adjustment Start Date: Monday04/13/22 INR Value: 3.4 INR Date: 04/13/22 Recheck Date: 04/27/22 Rx Instructions: 5MG X2DAYS/ 2.5MG X5DAYS; hydrocortisone [Cortef] 5 mg tablet 10 mg PO QAM 60 Days Qty: 120 0RF aspirin 81 mg tablet,delayed release (DR/EC) 81 mg PO DAILY 90 Days Qty: 90 0RF tamsulosin 0.4 mg capsule 0.4 mg PO DAILY 90 Days Qty: 90 0RF alclometasone 0.05 % cream 1 appl topical BID PRN (Reason: rash) <MARGARITO Danielle - Last Filed: 04/17/22 16:18> Referrals: Poonam Hernandez MD [Primary Care Provider] - 3 days (For cellulitis checkup) <MARGARITO Danielle - Last Filed: 04/17/22 16:18> Print Language: [place]se <MARGARITO Danielle - Last Filed: 04/17/22 16:18>
[2022-04-17 13:43] LABS: MANUAL DIFF FLAG NO
[2022-04-17 13:44] LABS: Basophils Absolute Auto 0.1 X10*3/uL (0.0-0.2); Basophils Percent Auto 0.8 % (0-2); Eosinophils Absolute Auto 0.4 X10*3/uL (0.0-0.4); Eosinophils Percent Auto 4.9 % (0-4); Hematocrit 38.5 % (42.0-52.0); Hemoglobin 12.5 g/dl (14.0-18.0); Imm Gran Abs Auto 0.02 X10*3/uL (0.00-0.03); Imm Gran Pct Auto 0.2 % (0.0-0.4); Lymphocytes Absolute Auto 1.2 X10*3/uL (1.2-4.9); Lymphocytes Percent Auto 13.8 % (20-40); Mean Corpuscular HGB Conc 32.5 g/dl (31.0-36.0); Mean Corpuscular Hemoglobin 26.4 pg (27.0-33.0); Mean Corpuscular Volume 81.2 fL (80.0-98.0); Mean Platelet Volume 10.7 fL (9.4-12.4); Monocytes Absolute Auto 0.5 X10*3/uL (0.1-1.2); Monocytes Percent Auto 5.6 % (2-11); Neutrophils Absolute Auto 6.6 x10*3/uL (2.0-8.3); Neutrophils Percent Auto 74.7 % (45-73); Platelet Count 216 X10*3/uL (160-400); Red Blood Count 4.74 X10*6/uL (4.60-5.80); Red Cell Distribution Width 14.6 % (11.0-16.0); White Blood Count 8.8 X10*3/uL (4.8-10.8)
[2022-04-17 14:10] LABS: B Type Natriuretic Peptide 159 pg/mL (<100)
[2022-04-17 14:15] LABS: Alanine Aminotransferase 7 U/L (0-40); Alkaline Phosphatase 150 U/L (39-117); Anion Gap 15 (12-20); Aspartate Amino Transferase 9 U/L (5-37); Bilirubin Total 0.8 mg/dL (0.0-1.0); Blood Urea Nitrogen 18 mg/dL (9-16); Calcium 8.8 mg/dL (8.4-10.2); Carbon Dioxide 26 mmol/L (22-29); Chloride 105 mmol/L (96-108); Creatinine Clr Calc Pharmacy 62.7; Estimated Glomerular Filt Rate 53; Glucose Random 128 mg/dL (60-115); Magnesium 1.2 mg/dL (1.6-2.6); Potassium 4.9 mmol/L (3.3-5.1); Sodium 141 mmol/L (135-145); Total Protein 6.4 g/dL (6.5-8.0)
[2022-04-17] MEDS: Magnesium Sulfate/H2O 2 GM/50 ML PIGGYBACK IV (15:05)
[2022-04-17 15:54] LABS: INTERNATIONAL NORM RATIO 2.6 (0.9-1.1)
[2022-04-17] MEDS: Doxycycline Monohydrate 100 MG CAPSULE PO (16:47)
[2022-04-17] MEDS: cephALEXin 500 MG CAPSULE PO (16:47)
== END 2022-04-17 17:15 | disposition home or self-care (01) ==
PROVIDERS: Physician Assistant Medical; Emergency Provider Emergency Medicine; PCP Internal Medicine
DX: L03.115 Cellulitis of right lower limb (principal); L03.116 Cellulitis of left lower limb; R60.0 Localized edema; M25.572 Pain in left ankle and joints of left foot; N40.0 Benign prostatic hyperplasia without lower urinary tract symptoms; R06.02 Shortness of breath; M10.9 Gout, unspecified; Z79.899 Other long term (current) drug therapy
CPT/HCPCS: 36415; 73610; 80053; 83735; 83880; 85025; 85610; 93970; 99284; J3475

== ENCOUNTER → 2022-05-20 13:00 | Outpatient (BNVA) | payer OTHER, SELFPAY | PROVIDERS: PCP Internal Medicine; Visit Provider Internal Medicine | DX: I48.0 Paroxysmal atrial fibrillation (principal); Z86.73 Personal history of transient ischemic attack (TIA), and cerebral infarction without residual deficits; Z79.01 Long term (current) use of anticoagulants; Z51.81 Encounter for therapeutic drug level monitoring | CPT/HCPCS: 85610; 99211 ==

== ENCOUNTER → 2022-07-08 13:03 | Outpatient (BNVA) | payer OTHER, SELFPAY | PROVIDERS: PCP Internal Medicine; Visit Provider Internal Medicine | DX: I48.0 Paroxysmal atrial fibrillation (principal); Z86.73 Personal history of transient ischemic attack (TIA), and cerebral infarction without residual deficits; Z79.01 Long term (current) use of anticoagulants; Z51.81 Encounter for therapeutic drug level monitoring | CPT/HCPCS: 85610; 99211 ==

== ENCOUNTER 2022-08-17 10:54 | Outpatient (REF) | payer OTHER, SELFPAY ==
[2022-08-17 11:07] LABS: MANUAL DIFF FLAG NO
[2022-08-17 11:27] LABS: Basophils Absolute Auto 0.1 X10*3/uL (0.0-0.2); Basophils Percent Auto 0.8 % (0-2); Eosinophils Absolute Auto 0.5 X10*3/uL (0.0-0.4); Eosinophils Percent Auto 5.6 % (0-4); Hematocrit 41.2 % (42.0-52.0); Hemoglobin 13.1 g/dl (14.0-18.0); Imm Gran Abs Auto 0.03 X10*3/uL (0.00-0.03); Imm Gran Pct Auto 0.3 % (0.0-0.4); Lymphocytes Absolute Auto 1.8 X10*3/uL (1.2-4.9); Lymphocytes Percent Auto 19.1 % (20-40); Mean Corpuscular HGB Conc 31.8 g/dl (31.0-36.0); Mean Corpuscular Hemoglobin 26.4 pg (27.0-33.0); Mean Corpuscular Volume 82.9 fL (80.0-98.0); Monocytes Absolute Auto 0.5 X10*3/uL (0.1-1.2); Neutrophils Absolute Auto 6.5 x10*3/uL (2.0-8.3); Neutrophils Percent Auto 69.2 % (45-73); Platelet Count 246 X10*3/uL (160-400); Red Blood Count 4.97 X10*6/uL (4.60-5.80); Red Cell Distribution Width 15.9 % (11.0-16.0); White Blood Count 9.3 X10*3/uL (4.8-10.8)
[2022-08-17 12:37] LABS: Folate 8.9 ng/mL (> or = 4.0); Vitamin B12 303 pg/mL (200-900)
[2022-08-17 12:39] LABS: Alanine Aminotransferase 7 U/L (0-40); Albumin Level 4.2 g/dL (3.5-5.0); Alkaline Phosphatase 151 U/L (39-117); Anion Gap 20 (12-20); Aspartate Amino Transferase 11 U/L (5-37); Bilirubin Total 0.5 mg/dL (0.0-1.0); Blood Urea Nitrogen 23 mg/dL (9-16); Calcium 9.1 mg/dL (8.4-10.2); Carbon Dioxide 22 mmol/L (22-29); Chloride 108 mmol/L (96-108); Cholesterol 136 mg/dL; Estimated Glomerular Filt Rate 59; Glucose Fasting 139 mg/dL (60-99); Potassium 4.6 mmol/L (3.3-5.1); Sodium 145 mmol/L (135-145)
[2022-08-17 12:40] LABS: HDL Cholesterol 43 mg/dL; Iron 49 mcg/dL (45-160); LDL Cholesterol Calculated 77 mg/dl; Percent Iron Saturation 23 % (15-50); Total Iron Binding Capacity 209 mcg/dL (228-428); Total Protein 6.7 g/dL (6.5-8.0); Triglycerides 84 mg/dL; Unsaturated Iron Binding 160 ug/dL; Uric Acid 5.6 mg/dL (3.4-7.0)
[2022-08-17 12:56] LABS: Magnesium 1.4 mg/dL (1.6-2.6)
[2022-08-22 13:17] LABS: NT-proBNP 2560 pg/mL
== END 2022-08-17 10:55 | disposition home or self-care (01) ==
LOC: HO.LAB 10:54
PROVIDERS: PCP Internal Medicine; Visit Provider Internal Medicine
DX: N18.9 Chronic kidney disease, unspecified (principal); E53.8 Deficiency of other specified B group vitamins; E55.9 Vitamin D deficiency, unspecified; R06.09 Other forms of dyspnea; M10.9 Gout, unspecified; E78.5 Hyperlipidemia, unspecified; D64.9 Anemia, unspecified
CPT/HCPCS: 36415; 80053; 80061; 82306; 82607; 82746; 83540; 83735; 83880; 84550; 85025

== ENCOUNTER → 2022-08-18 11:41 | Outpatient (REF) | payer OTHER, SELFPAY ==
--- NOTE | 2022-08-18 11:46 | ECG_ITS ---
Test Reason : MAGNESIUM DEF Blood Pressure : / mmHG Vent. Rate : 095 BPM Atrial Rate : 000 BPM P-R Int : 000 ms QRS Dur : 082 ms QT Int : 366 ms P-R-T Axes : 000 -28 158 degrees QTc Int : 459 ms Atrial fibrillation Inferior infarct , age undetermined ST & T wave abnormality, consider lateral ischemia Abnormal ECG When compared with ECG of 08-MAY-2018 14:36, Non-specific change in ST segment in Lateral leads T wave inversion now evident in Anterolateral leads Referred By: Poonam Mejia Electronically Signed By:BLAIR MARTINEZ MD
== END ==
LOC: HO.CARD 11:41
PROVIDERS: PCP Internal Medicine; Visit Provider Internal Medicine
DX: E61.2 Magnesium deficiency (principal)
CPT/HCPCS: 93005

== ENCOUNTER → 2022-08-26 13:01 | Outpatient (BNVA) | payer OTHER, SELFPAY | PROVIDERS: PCP Internal Medicine; Visit Provider Internal Medicine | DX: I48.0 Paroxysmal atrial fibrillation (principal); Z86.73 Personal history of transient ischemic attack (TIA), and cerebral infarction without residual deficits; Z79.01 Long term (current) use of anticoagulants; Z51.81 Encounter for therapeutic drug level monitoring | CPT/HCPCS: 85610; 99211 ==

== ENCOUNTER 2022-08-26 13:25 | Outpatient (REF) | payer OTHER, SELFPAY ==
[2022-08-26 14:20] LABS: Creatinine Urine 78.72 mg/dL; Microalbum/Creatinine Ratio Ur 36.8 ug/mg cr
== END 2022-08-26 13:26 | disposition home or self-care (01) ==
LOC: HO.LNP 13:25
PROVIDERS: Visit Provider Internal Medicine
DX: E11.9 Type 2 diabetes mellitus without complications (principal)
CPT/HCPCS: 82043

== ENCOUNTER → 2022-09-09 13:04 | Outpatient (BNVA) | payer OTHER, SELFPAY | PROVIDERS: PCP Internal Medicine; Visit Provider Internal Medicine | DX: I48.0 Paroxysmal atrial fibrillation (principal); Z86.73 Personal history of transient ischemic attack (TIA), and cerebral infarction without residual deficits; Z79.01 Long term (current) use of anticoagulants; Z51.81 Encounter for therapeutic drug level monitoring | CPT/HCPCS: 85610; 99211 ==

== ENCOUNTER → 2022-09-16 13:15 | Outpatient (BNVA) | payer OTHER, SELFPAY | PROVIDERS: PCP Internal Medicine; Visit Provider Internal Medicine | DX: I48.0 Paroxysmal atrial fibrillation (principal); Z86.73 Personal history of transient ischemic attack (TIA), and cerebral infarction without residual deficits; Z79.01 Long term (current) use of anticoagulants; Z51.81 Encounter for therapeutic drug level monitoring | CPT/HCPCS: 85610; 99211 ==

== ENCOUNTER 2022-10-16 12:30 | Emergency (ER) | payer OTHER, SELFPAY ==
[2022-10-16 12:40] VITALS: BP 108/70; BP 138/92; PULSE 75; PULSE 94; RESP 18; TEMP 36.6; O2SAT 97; O2SAT 98; BMI 30.6
[2022-10-16 12:53] VITALS: BP 108/70; PULSE 75; RESP 18; TEMP 36.4
--- NOTE | 2022-10-16 12:56 | ED.GENADULT ---
HPI - General Adult General Chief complaint: Fall Stated complaint: fall from WC, lower back pain, R shoulder pain Time Seen by Provider: 10/16/22 12:56 Source: patient, RN notes reviewed and old records reviewed Mode of arrival: ambulatory History of Present Illness HPI narrative: 77-year-old male with a past medical history of BPH, CKD, diabetes, HLD, gout, HTN, iron deficiency anemia, seizures, CVA with right-sided residual deficits, on Coumadin, presenting to the ED via EMS s/p mechanical fall while transferring from bed to wheelchair. Patient admits to falling backwards, + head trauma, and landed on back. Patient complaining of neck pain, low back pain, and lower abdominal pain. States he was on the ground for an hour prior to obtaining help. Denies symptoms prior to fall. Denies headache, vision changes, CP/SOB, nausea/vomiting, diarrhea, focal weakness Onset (ago): minute(s) Related Data Home Medications Medication Instructions Recorded Confirmed allopurinol 100 mg tablet 100 mg PO DAILY 10/16/22 10/16/22 amlodipine 2.5 mg tablet 2.5 mg PO DAILY 10/16/22 10/16/22 cholecalciferol (vitamin D3) 50 50 mcg PO DAILY 10/16/22 10/16/22 mcg (2,000 unit) tablet (Vitamin D3) fluoxetine 20 mg capsule 20 mg PO DAILY 10/16/22 10/16/22 hydrocortisone 5 mg tablet (Cortef) 10 mg PO DAILY 10/16/22 10/16/22 metoprolol succinate 25 mg 12.5 mg PO DAILY 10/16/22 10/16/22 tablet,extended release 24 hr warfarin 2.5 mg tablet 2.5 mg PO MOTUTHFRSA@1800 10/16/22 10/16/22 warfarin 2.5 mg tablet 5 mg PO SUWE@1800 10/16/22 10/16/22 Previous Rx's Medication Instructions Recorded diaper,brief,adult,disposable #100 ea 07/15/20 (Briefs, Adult-Extra Large) power wheelchair #1 ea 02/27/21 lancets 28 gauge #100 ea 06/15/21 blood sugar diagnostic (FreeStyle #100 ea 06/25/21 Lite Strips) levetiracetam 750 mg tablet 750 mg PO BID 3 months #180 tabs 06/29/22 aspirin 81 mg tablet,delayed 81 mg PO DAILY 3 months #90 tabs 08/08/22 release tamsulosin 0.4 mg capsule 0.4 mg PO DAILY 3 months #90 caps 08/08/22 atorvastatin 40 mg tablet 40 mg PO BEDTIME 90 days #90 tabs 08/17/22 famotidine 20 mg tablet 20 mg PO DAILY PRN heartburn 30 08/17/22 days #30 tabs magnesium oxide 500 mg PO TID 30 days #180 tabs 08/17/22 metformin 500 mg tablet 500 mg PO BID 90 days #180 tabs 08/17/22 mirtazapine 15 mg tablet 15 mg PO BEDTIME 3 months #90 tabs 08/17/22 ferrous sulfate 325 mg (65 mg 325 mg PO DAILY 60 days #60 tabs 10/01/22 iron) tablet Allergies Allergy/AdvReac Type Severity Reaction Status Date / Time No Known Allergies Allergy Verified 10/16/22 12:40 Review of Systems Review of Systems: Constitutional: No Fever, No Chills, No Fatigue, No Malaise ENT/Mouth: No Ear Pain, No Nasal Congestion, No sore throat, No Rhinorrhea, No Swallowing Difficulty Eyes: No Eye Pain, No Swelling, No Redness, No Vision Changes Cardiovascular: No Chest Pain, No SOB, No Edema, No Palpitations Respiratory: No Cough, No Sputum, No Dyspnea Gastrointestinal: No Nausea, No Vomiting, No Diarrhea, No Constipation, + Abdominal pain Genitourinary: No irregular bleeding, No Dysuria, No Urinary Frequency, No Hematuria, No Urinary Incontinence/retention, No Urgency, No Flank Pain, No Urinary Flow Changes, No Hesitancy Musculoskeletal: + back/neck/hip pain, No Myalgias, No Joint Swelling Skin: No Skin Lesions, No rash Neuro: No Weakness, No Numbness, No Paresthesias, No Loss of Consciousness, No Dizziness, No Headache, +head injury Yes all other systems are reviewed and are negative Constitutional: Constitutional: Reports as per HPI Neurologic: Denies Abnormal speech present [facility] Past Medical History Attestation statement: The following information was validated with the patient. Source: old records reviewed Medical History Abnormal laboratory test BPH (benign prostatic hyperplasia) CKD (chronic kidney disease) Diabetes Dyslipidemia Gout Hypertension Hypovitaminosis D Iron deficiency anemia Physical exam Psoriasis Seizures Stroke Surgical History History of kidney stones History of open reduction and internal fixation (ORIF) procedure Family History Family History Mother Heart problem Father Bone cancer Social History Social History Housing: Apartment Alcohol intake: never Patient Tobacco Use Status: Never used Tobacco Smoked in Last 30 Days: No e-Cigarette/Vaping Use: Never Used Second Hand Smoke Exposure: No Use of substances other than those prescribed or required for medical reasons: No Advance Directives: No Advance Directives Information Provided: Yes service: No Current occupational status: disabled Cognitive needs: Yes Hearing needs: No Vision needs: No Physical Exam ED Vital Signs: Vital Signs - 24 hr 10/16/22 12:40 10/16/22 12:53 10/16/22 15:43 Temperature 97.8 F 97.5 F Pulse Rate 75 75 67 Respiratory Rate 18 18 16 Blood Pressure 108/70 108/70 140/83 H Pulse Oximetry 97 98 Oxygen Delivery Method Room Air Room Air 10/16/22 17:28 Temperature 97.6 F Pulse Rate 63 Respiratory Rate 16 Blood Pressure 148/96 H Pulse Oximetry 97 Oxygen Delivery Method Room Air BMI result Body Mass Index 30.6 Const General: cooperative, no acute distress, alert and awake Nutritional Appearance: obese Orientation/consciousness: patient oriented x3 Limitations: no limitations HENMT Head: Yes normal to inspection, Yes atraumatic, No Dominique's sign and No raccoon eyes Ears: hearing grossly normal bilaterally General nose exam: Normal external nose present Face and sinus: Yes normal facial exam Eyes General: appearance normal, both eyes and all related structures Pupils: Equal, round and reactive pupils present EOM: EOMs intact bilaterally Neck Other: C-collar in place Neck: Yes normal visual inspection, Yes no meningeal signs and No anterior neck swelling Chest Chest palpation & inspection: normal inspection of the chest, no crepitus and no tenderness Resp Effort & Inspection: normal respiratory effort and no respiratory distress Auscultation: clear to auscultation bilaterally Cardio Rate: regular rate Heart sounds: S1 normal heart sound present and S2 normal heart sound present GI Inspection: Yes normal to inspection Palpation (GI): Soft to palpation, nontender, no guarding and not rigid General: Yes no CVA tenderness Back/Spine/Pelvis Other: No midline cervical/thoracic/lumbar spinous tenderness/step-off or deformity. + bilateral lumbar paraspinal/MSK tenderness to palpation. No erythema/rash or ecchymosis. No flail chest + bilateral pelvic pain > left with anterior-posterior compression. No appreciable deformity. Bilateral hip pain elicited with passive ROM. NV intact distally Back: no CVA tenderness Skin Rashes: no rashes Wounds: no wounds Neuro Other: Baseline right-sided residual deficits from prior CVA. Wheelchair-bound General: patient oriented x3, tone normal, moves all extremities, no meningeal signs, no focal motor deficits and CN's II-XI intact bilaterally Cranial nerves: Yes Equal, round and reactive pupils present Cognition (Neuro): normal cognition Speech: No Abnormal speech present Extrem General: Yes normal to inspection Course Course Course Narrative: -1604--no leukocytosis. H&H stable. BUN chronically elevated -[place] [facility] down, receiving paper preliminary readings: head CT showing old left frontal infarct, nothing acute C-spine no fractures, spondylosis Chest CT showing cardiomegaly, scattered atelectasis, SHAHEEN density Abdomen/pelvis: 1.No solid organ injury. 2.? Right renal surgery. Fat containing lesion (angiomyolipoma) 3.Cholelithiasis 4.Probable old L4 superior endplate fracture. Diffuse DDD >> will initiate patient on Azithro for SHAHEEN density -1613--on re-evaluation patient reports continued lower abdominal/pelvic discomfort. Lives home alone, has visiting nurse only 2 hours daily. Feels unsafe for discharge. With shared decision-making will obtain PT/case management consult. Physician observation initiated -1630--ED care transfer to [facility] pending UA, PT and Case Management evaluation Medications Administered Discontinued Medications Generic Name Dose Route Start Last Admin Trade Name Freq PRN Reason Stop Dose Admin Azithromycin 500 mg 10/16/22 16:14 10/16/22 16:26 Azithromycin 500 Mg Tablet PO 10/16/22 16:15 500 mg ONCE ONE Administration Fentanyl 25 mcg 10/16/22 14:13 10/16/22 15:21 Fentanyl Citrate/Pf 100 Mcg/2 Ml Vial IVPUSH 10/16/22 14:14 25 mcg ONCE ONE Administration Protocol Iohexol 100 ml 10/16/22 14:56 10/16/22 14:56 Iohexol 350 Mg/Ml 100 Ml Infus..Btl IV 10/16/22 14:57 85 ml ONCE ONE Administration Medical Decision Making Medical Decision Making MDM Narrative: 77-year-old male with a past medical history of BPH, CKD, diabetes, HLD, gout, HTN, iron deficiency anemia, seizures, CVA with right-sided residual deficits, on Coumadin, presenting to the ED via EMS s/p mechanical fall while transferring from bed to wheelchair. + head trauma, c/o neck pain, low back pain, and lower abdominal pain. On exam vital signs stable, NAD, nontoxic appearing, no evidence of trauma, no midline spinous tenderness throughout or focal neuro deficits. Bilateral lumbar paraspinal, and bilateral hip/pelvic pain noted. Abdomen soft/nontender. Concern for ICH vs fracture vs intrathoracic/intra-abdominal injury/bleeding vs pelvic/hip fracture. Lower suspicion for ACS/PE or infectious etiology Plan: EKG, labs, UA, CT head/C-spine/chest/abdomen/pelvis Please refer to course for remaining clinical decision making, interpretation of labs/imaging results, and discussions with consultants and/or family members. Differential Diagnosis Differential Diagnoses: The differential diagnosis associated with the presentation includes As above Admission/Observation Consideration of admission/observation: Escalation of care including admission/observation considered Lab Data MDM Lab Attestation statement: I reviewed the patient's lab results. 10/16/22 13:38 10/16/22 13:38 Labs: Lab Results 10/16/22 10/16/22 10/16/22 Range/Units 12:46 13:38 13:38 WBC 6.8 (4.8-10.8) X10*3/uL RBC 4.48 L (4.60-5.80) X10*6/uL Hgb 12.1 L (14.0-18.0) g/dl Hct 37.5 L (42.0-52.0) % MCV 83.7 (80.0-98.0) fL MCH 27.0 (27.0-33.0) pg MCHC 32.3 (31.0-36.0) g/dl RDW 15.9 (11.0-16.0) % Plt Count 214 (160-400) X10*3/uL MPV 10.9 (9.4-12.4) fL Immature Gran % (Auto) 0.1 (0.0-0.4) % Neut % (Auto) 63.6 (45-73) % Lymph % (Auto) 22.5 (20-40) % [place] % (Auto) 5.3 (2-11) % Eos % (Auto) 7.5 H (0-4) % Baso % (Auto) 1.0 (0-2) % Lymph # (Auto) 1.5 (1.2-4.9) X10*3/uL [place] # (Auto) 0.4 (0.1-1.2) X10*3/uL Eos # (Auto) 0.5 H (0.0-0.4) X10*3/uL Baso # (Auto) 0.1 (0.0-0.2) X10*3/uL Abs Immat Gran (auto) 0.01 (0.00-0.03) X10*3/uL Absolute Neuts (auto) 4.3 (2.0-8.3) x10*3/uL Absolute Nucleated RBC 0.000 (0.0-0.012) X10*3/uL Nucleated RBC % (auto) 0.0 (0.0-0.2) /100WBC PT (10.0-13.1) SEC INR (0.9-1.1) Sodium 139 (135-145) mmol/L Potassium 4.7 (3.3-5.1) mmol/L Chloride 105 (96-108) mmol/L Carbon Dioxide 23 (22-29) mmol/L Anion Gap 16 (12-20) BUN 25 H (9-16) mg/dL Creatinine 1.29 (0.5-1.4) mg/dL Estim Creat Clear Calc 63.7 Estimated GFR 54 POC Glucose 114 (60-115) mg/dL Random Glucose 114 (60-115) mg/dL Calcium 9.3 (8.4-10.2) mg/dL Magnesium 1.6 (1.6-2.6) mg/dL Total Bilirubin 0.6 (0.0-1.0) mg/dL Direct Bilirubin 0.2 (0.0-0.5) mg/dL AST 14 (5-37) U/L ALT 9 (0-40) U/L Alkaline Phosphatase 134 H (39-117) U/L Total Creatine Kinase 35 L (38-174) U/L Total Protein 6.7 (6.5-8.0) g/dL Albumin 3.7 (3.5-5.0) g/dL Lipase 13 (8-78) U/L 10/16/22 Range/Units 13:38 WBC (4.8-10.8) X10*3/uL RBC (4.60-5.80) X10*6/uL Hgb (14.0-18.0) g/dl Hct (42.0-52.0) % MCV (80.0-98.0) fL MCH (27.0-33.0) pg MCHC (31.0-36.0) g/dl RDW (11.0-16.0) % Plt Count (160-400) X10*3/uL MPV (9.4-12.4) fL Immature Gran % (Auto) (0.0-0.4) % Neut % (Auto) (45-73) % Lymph % (Auto) (20-40) % [place] % (Auto) (2-11) % Eos % (Auto) (0-4) % Baso % (Auto) (0-2) % Lymph # (Auto) (1.2-4.9) X10*3/uL [place] # (Auto) (0.1-1.2) X10*3/uL Eos # (Auto) (0.0-0.4) X10*3/uL Baso # (Auto) (0.0-0.2) X10*3/uL Abs Immat Gran (auto) (0.00-0.03) X10*3/uL Absolute Neuts (auto) (2.0-8.3) x10*3/uL Absolute Nucleated RBC (0.0-0.012) X10*3/uL Nucleated RBC % (auto) (0.0-0.2) /100WBC PT 23.5 H (10.0-13.1) SEC INR 2.0 H (0.9-1.1) Sodium (135-145) mmol/L Potassium (3.3-5.1) mmol/L Chloride (96-108) mmol/L Carbon Dioxide (22-29) mmol/L Anion Gap (12-20) BUN (9-16) mg/dL Creatinine (0.5-1.4) mg/dL Estim Creat Clear Calc Estimated GFR POC Glucose (60-115) mg/dL Random Glucose (60-115) mg/dL Calcium (8.4-10.2) mg/dL Magnesium (1.6-2.6) mg/dL Total Bilirubin (0.0-1.0) mg/dL Direct Bilirubin (0.0-0.5) mg/dL AST (5-37) U/L ALT (0-40) U/L Alkaline Phosphatase (39-117) U/L Total Creatine Kinase (38-174) U/L Total Protein (6.5-8.0) g/dL Albumin (3.5-5.0) g/dL Lipase (8-78) U/L Independent Interpretation I performed an independent interpretation of an: EKG Radiology Impression Discussion of test interpretation with radiology: I have reviewed the radiologist's reading. Independent Historian Clinical information obtained from an independent historian. History obtained from or confirmed by: EMS and Other ([employer]) External Record Review External record reviewed: Inpatient record, Office record, Outpatient record, Prior outpatient labs, Prior outpatient radiology, Primary care record and Outside ED record Tests considered The following testing was considered but not selected: As above Chronic Conditions Patient?s care impacted by: Diabetes, Hypertension and Other (CVA) Discharge Plan Discharge Clinical Impression: Abdominal pain, lower, Acute pelvic pain, Fall Patient Disposition: Still a Patient Prescriptions: No Action (DME) Briefs, Adult-Extra Large Misc See Rx Instructions .ROUTE .MEDSUPPLY Qty: 100 0RF Rx Instructions: As directed (DME) power wheelchair See Rx Instructions .Route .MEDSUPPLY Qty: 1 0RF Rx Instructions: As directed (DME) lancets 28 gauge misc See Rx Instructions .ROUTE .MEDSUPPLY Qty: 100 1RF Rx Instructions: TEST ONCE DAILY (DME) FreeStyle Lite Strips Strip See Rx Instructions .ROUTE .MEDSUPPLY Qty: 100 3RF Rx Instructions: TEST ONCE DAILY levetiracetam 750 mg tablet 750 mg PO BID 90 Days Qty: 180 0RF aspirin 81 mg tablet,delayed release (DR/EC) 81 mg PO DAILY 90 Days Qty: 90 0RF tamsulosin 0.4 mg capsule 0.4 mg PO DAILY 90 Days Qty: 90 0RF magnesium oxide 250 mg magnesium tablet 500 mg PO TID 30 Days Qty: 180 1RF ferrous sulfate 325 mg (65 mg iron) tablet 325 mg PO DAILY 60 Days Qty: 60 6RF warfarin 2.5 mg tablet 5 mg PO SUWE@1800 cholecalciferol (vitamin D3) [Vitamin D3] 50 mcg (2,000 unit) tablet 50 mcg PO DAILY hydrocortisone [Cortef] 5 mg tablet 10 mg PO DAILY warfarin 2.5 mg tablet 2.5 mg PO MOTUTHFRSA@1800 Protocol: Dose Management Condition: Monday (Week One) Dose/Route: 5 mg Instruction: 2 x 2.5 mg tablets Condition: Monday Dose/Route: 2.5 mg Instruction: 1 x 2.5 mg tablet Condition: Monday Dose/Route: 2.5 mg Instruction: 1 x 2.5 mg tablet Condition: Monday Dose/Route: 5 mg Instruction: 2 x 2.5 mg tablets Condition: Dose/Route: 2.5 mg Instruction: 1 x 2.5 mg tablet Condition: Monday Dose/Route: 2.5 mg Instruction: 1 x 2.5 mg tablet Condition: Monday Dose/Route: 2.5 mg Instruction: 1 x 2.5 mg tablet Condition: Monday (Week Two) Dose/Route: 5 mg Instruction: 2 x 2.5 mg tablets Condition: Monday Dose/Route: 2.5 mg Instruction: 1 x 2.5 mg tablet Condition: Monday Dose/Route: 2.5 mg Instruction: 1 x 2.5 mg tablet Condition: Monday Dose/Route: 5 mg Instruction: 2 x 2.5 mg tablets Condition: Dose/Route: 2.5 mg Instruction: 1 x 2.5 mg tablet Condition: Monday Dose/Route: 2.5 mg Instruction: 1 x 2.5 mg tablet Condition: Monday Dose/Route: 2.5 mg Instruction: 1 x 2.5 mg tablet Protocol Text: Adjustment Start Date: Monday09/16/22 INR Value: 2.2 INR Date: 09/16/22 Recheck Date: 09/30/22 amlodipine 2.5 mg tablet 2.5 mg PO DAILY allopurinol 100 mg tablet 100 mg PO DAILY metoprolol succinate 25 mg tablet extended release 24 hr 12.5 mg PO DAILY fluoxetine 20 mg capsule 20 mg PO DAILY famotidine 20 mg tablet 20 mg PO DAILY PRN (Reason: heartburn) 30 Days Qty: 30 2RF atorvastatin 40 mg tablet 40 mg PO BEDTIME 90 Days Qty: 90 3RF metformin 500 mg tablet 500 mg PO BID 90 Days Qty: 180 0RF mirtazapine 15 mg tablet 15 mg PO BEDTIME 90 Days Qty: 90 3RF
--- NOTE | 2022-10-16 13:01 | PC.NURSE ---
pt a&ox3, vss, pt comes in d/t fall at home by transferring from bed to his wheelchair, pt stating 9/10 pain in his left leg, denies dizziness or LOC prior to fall, provider bedside asking questions, call guillory placed within reach.
[2022-10-16 14:00] LABS: Alanine Aminotransferase 9 U/L (0-40); Albumin Level 3.7 g/dL (3.5-5.0); Alkaline Phosphatase 134 U/L (39-117); Anion Gap 16 (12-20); Aspartate Amino Transferase 14 U/L (5-37); Bilirubin Direct 0.2 mg/dL (0.0-0.5); Bilirubin Total 0.6 mg/dL (0.0-1.0); Blood Urea Nitrogen 25 mg/dL (9-16); Calcium 9.3 mg/dL (8.4-10.2); Carbon Dioxide 23 mmol/L (22-29); Chloride 105 mmol/L (96-108); Creatinine Clr Calc Pharmacy 63.7; Estimated Glomerular Filt Rate 54; Glucose Random 114 mg/dL (60-115); Lipase 13 U/L (8-78); Magnesium 1.6 mg/dL (1.6-2.6); Potassium 4.7 mmol/L (3.3-5.1); Sodium 139 mmol/L (135-145); Total Protein 6.7 g/dL (6.5-8.0)
--- NOTE | 2022-10-16 14:00 | PC.NURSE ---
iv inserted, pt awaiting radiology
--- NOTE | 2022-10-16 15:24 | PC.NURSE ---
pt a&ox3, vss, pt stating pain 8/10 in his neck - medicated per provider order, tolerated medication administration without complications, call guillory placed within reach, will continue to monitor.
[2022-10-16 15:43] VITALS: BP 140/83; PULSE 67; RESP 16; O2SAT 98
--- NOTE | 2022-10-16 15:45 | MHC.EDTECH ---
this pct assumed care of pt at 1500 ,vitals sign taken patient is resting quietly in bed .
[2022-10-16] MEDS: Azithromycin 500 MG TABLET PO (16:26)
--- NOTE | 2022-10-16 16:34 | PC.NURSE ---
a&ox3, vss, pt verbalizes pain decrease to a 5/10, antibiotics administered per provider order, pharmacy bedside/calling practice specialist to speak with the patient about medication list, call guillory within reach, will continue to monitor.
[2022-10-16 17:28] VITALS: BP 148/96; PULSE 63; RESP 16; TEMP 36.4; O2SAT 97
--- NOTE | 2022-10-16 17:28 | PHA.MEDREC ---
Pharmacy Consult ? Medication Reconciliation Pharmacy has completed the medication reconciliation. Utilized matching machine operator services.
--- NOTE | 2022-10-16 17:32 | PC.NURSE ---
alert and oriented, pt stating pain increase at a 10/10 bilaterally in the hips as well as lower back towards sacrum, will notify provider.
--- NOTE | 2022-10-16 18:02 | MHC.EDTECH ---
patient was reposition and boosted up in bed ,family member at bedside
--- NOTE | 2022-10-16 18:20 | PC.NURSE ---
patient a&ox3, family at bedside, pt medicated for 11/24 abd/back pain, vss, pt currently eating dinner, call guillory within reach, will continue to monitor
--- NOTE | 2022-10-16 19:30 | PC.NURSE ---
assumed care of pt at 1900 - pt resting comfortably on stretcher head of bed lowered per pt request. warm blanket provided. pt offers no complaints at this time. call guillory within reach. will CTM
[2022-10-16 21:47] VITALS: BP 128/78; PULSE 65; RESP 18; TEMP 36.4; O2SAT 96
--- NOTE | 2022-10-16 21:48 | PC.NURSE ---
brief saturated. pt cleaned up and linens changed. 2 person assist as pt does not roll well d/t L hip pain. bed time meds given with water no issues, vital signs updated, call guillory within reach. no current complaints. will CTM
--- NOTE | 2022-10-16 22:11 | PC.NURSE ---
pt given urinal to use at bedside for urine collection.
[2022-10-17 00:32] LABS: Appearance Urine Clear; Color Urine Yellow; Glucose Urine UA Negative (Negative); Leukocyte Esterase Urine Small (1+) (Negative); Nitrite Urine Negative (Negative); Specific Gravity - Urine >= 1.030 (1.005-1.025); UMIC TRIGGER UACC YES; Urine Blood Trace (Negative); Urine Ketones Negative (Negative); Urine Protein Negative (Neg-Trace)
[2022-10-17 00:46] LABS: Bacteria Urine None Seen (None Seen); Hyaline Casts Urine 0-2 /LPF (0-2); Squamous Epithelial Cell Urine 0-2 /HPF (0-2); UACC Culture Trigger YES; WBC Urine 0-5 /HPF (0-5)
[2022-10-17 06:36] VITALS: BP 135/95; PULSE 75; TEMP 36.5; O2SAT 93
[2022-10-17 07:00] VITALS: BP 139/86; PULSE 66; RESP 16; TEMP 36.4; O2SAT 94
--- NOTE | 2022-10-17 08:20 | PC.NURSE ---
This RN at pt.'s bedside. Pt. AOx4, denies complaints at this time. VSS, took all morning medications whole with water without issue. PT also at bedside to evaluate pt.
[2022-10-17 08:21] VITALS: BP 116/82; PULSE 74; RESP 18; TEMP 36.6; O2SAT 97
--- NOTE | 2022-10-17 08:44 | PC.NURSE ---
Awaiting Hydrocortisone to be sent up from the pharmacy
--- NOTE | 2022-10-17 10:15 | PC.NURSE ---
Still awaiting requested Hydrocortisone from Pharmacy.
[2022-10-17 13:26] VITALS: BP 132/86; PULSE 72; RESP 17; TEMP 36.5; O2SAT 97
--- NOTE | 2022-10-17 15:05 | MHC.CM.ED ---
Received case management consult overnight. Patient came to the ER due to a fall. Work up essentially negative. Physical therapy eval completed. Short term rehab is being recommended. Met with patient and puppet engineer in regards to discharge planning. Patient lives alone, ambulates with a rollator and has PHYSICIAN EXECUTIVE hours through [facility]. Patient also has a home care liaison through [facility]. PCP verfied. Copy of HCP verified to be on file. Patient received 2 Moderna vaccines. Not boosted. Referral broadcasted in [facility] to see who has beds available. [facility] and [facility] are able to offer a bed. [facility] is patient's 1st choice. W has been asked to obtain ins auth. Will need BLS transport when ins auth is obtained. Patient aware and agreeable. Continue to monitor for d/c needs.
[2022-10-17 16:18] VITALS: BP 140/88; PULSE 74; RESP 16; TEMP 36.6; O2SAT 98
--- NOTE | 2022-10-17 16:19 | MHC.EDTECH ---
this pct assumed care of pt ,vitals sign taken ,pt is calm and cooperative ,pt dry ,vitals stable .
[2022-10-17] MEDS: Azithromycin 250 MG TABLET PO (16:58)
--- NOTE | 2022-10-17 17:38 | PC.NURSE ---
Pt medicated with tylenol for c/o back pain with pending effect. Repositioned onto side
--- NOTE | 2022-10-17 19:04 | PC.NURSE ---
1730: Coumadin not stocked in pyxis. Pharmacy called and will stock.
[2022-10-17 21:03] VITALS: BP 133/79; PULSE 65; RESP 16; TEMP 36.2; O2SAT 98
[2022-10-18 06:00] VITALS: BP 135/93; PULSE 78; RESP 16; TEMP 36.2; O2SAT 97
--- NOTE | 2022-10-18 09:41 | MHC.CM.ED ---
Met w/pt using dramatic coach: informed pt of transfer to [facility]: pt in agreement w/plan. Edwige ELKINS arranged for a 9:45-10 am roll picker. FADIA left w/pt's sister Cara requesting a callback. ED care team updated on d/c plan
== END 2022-10-18 10:15 | disposition skilled nursing facility (03) ==
PROVIDERS: Physician Assistant; Emergency Provider Emergency Medicine Emergency Medical Services; PCP Internal Medicine
DX: M54.50 Low back pain, unspecified (principal); R10.9 Unspecified abdominal pain; R10.2 Pelvic and perineal pain; Z91.81 History of falling; I12.9 Hypertensive chronic kidney disease with stage 1 through stage 4 chronic kidney disease, or unspecified chronic kidney disease; E11.22 Type 2 diabetes mellitus with diabetic chronic kidney disease; E11.65 Type 2 diabetes mellitus with hyperglycemia; N18.9 Chronic kidney disease, unspecified; M25.511 Pain in right shoulder; D50.9 Iron deficiency anemia, unspecified; M54.2 Cervicalgia; R10.30 Lower abdominal pain, unspecified; Z20.822 Contact with and (suspected) exposure to COVID-19; Z99.3 Dependence on wheelchair; E78.5 Hyperlipidemia, unspecified
CPT/HCPCS: 36415; 70450; 71260; 72125; 74177; 80048; 80076; 81001; 82550; 82947; 83690; 83735; 85025; 85610; 87086; 87635; 93005; 96374; 97162; 99285; J3010; Q9967

== ENCOUNTER → 2022-11-07 11:52 | Outpatient (BNVA) | payer OTHER, SELFPAY | PROVIDERS: PCP Internal Medicine; Visit Provider Internal Medicine ==

== ENCOUNTER → 2022-11-10 14:39 | Outpatient (BNVA) | payer OTHER, SELFPAY | PROVIDERS: PCP Internal Medicine; Visit Provider Internal Medicine ==

== ENCOUNTER → 2022-11-14 13:37 | Outpatient (BNVA) | payer OTHER, SELFPAY | PROVIDERS: PCP Internal Medicine; Visit Provider Internal Medicine ==

== ENCOUNTER → 2022-11-18 09:54 | Outpatient (BNVA) | payer OTHER, SELFPAY | PROVIDERS: PCP Internal Medicine; Visit Provider Internal Medicine ==

== ENCOUNTER 2022-11-18 12:51 | Outpatient (AMB) | payer OTHER, SELFPAY ==
--- NOTE | 2022-11-18 12:53 | A.OFFPC_ITS ---
Vital Signs 11/18/22 12:54 Height 6 ft 2 in Weight 236 lb 15.951 oz BMI 30.4 BP 128/76 Blood Pressure Location Rt brachial Position Sitting Pulse 61 Pulse Source Pulse Oximeter Temp Source Skin Pulse Oximetry (%) 96 Oxygen Delivery Method Room Air Intake Visit Reasons: discharge from [facility] Intake Note: Patient is here for hospital discharge follow up. [place] [facility] [place] [facility] on 10/26 Master Electrician Required: Yes Master Electrician Language: Auto Fleet Maintenance Manager Name: Shiloh [id number] Information Interpreted: non-clinical & clinical Allergies No Known Allergies Allergy (Verified 11/18/22 13:52) Medication List - Last Reconciled 11/18/22 by JOCELYN Bush allopurinol 100 mg PO DAILY amlodipine 2.5 mg PO DAILY aspirin 81 mg PO DAILY 3 months atorvastatin 40 mg PO BEDTIME 90 days blood sugar diagnostic (FreeStyle Lite Strips) TEST ONCE DAILY cholecalciferol (vitamin D3) (Vitamin D3) 50 mcg PO DAILY diaper,brief,adult,disposable (Briefs, Adult-Extra Large) As directed famotidine 20 mg PO DAILY PRN 30 days ferrous sulfate 325 mg PO DAILY 60 days fluoxetine 20 mg PO DAILY hydrocortisone (Cortef) 10 mg PO DAILY hydrocortisone 5 mg PO DAILY lancets TEST ONCE DAILY levetiracetam 750 mg PO BID 3 months magnesium oxide 500 mg (2 x 250 mg magnesium) PO TID 30 days metformin 500 mg PO BID 90 days metoprolol succinate ER 12.5 mg PO DAILY mirtazapine 15 mg PO BEDTIME 3 months [power wheelchair As directed] tamsulosin 0.4 mg PO DAILY 3 months triamcinolone acetonide 0.1% 1 appl topical DAILY warfarin 2.5 mg See Protocol PO MOTUTHFRSA@1800 warfarin 5 mg See Protocol PO SUWE@1800 warfarin 1 mg See Protocol PO DAILY Tobacco use date assessed: 11/18/22 Fall risk assessment: 1 Fall in past year Last assessed Fall Risk: 11/18/22 Dental Screening Dental Screen Date: 11/18/22 HPI HPI Comments History of Present Illness Details 77-year-old male with a past medical history of BPH, CKD, diabetes, HLD, gout, HTN, iron deficiency anemia, seizures, CVA with right-sided residual deficits, on Coumadin. Patient presents today for a ER follow up, patient presents today with his [employer]. Patient presented to [facility] Emergency Room s/p mechanical fall while he was transferring from his bed to his wheelchair. Patient stated he fell backward striking his head and landing on his back. Patient reported neck pain, lower back pain and lower abdominal pain. Denied any dizziness, lightheadedness, palpitations, chest pain and syncope. 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 CT of the [place] showed no acute fracture, mild ventral spondylosis. chest CT: 1.? No pulmonary nodule or mass seen. Small focal atelectasis left upper lobe and left lower lobe.2.? There is loss of left lung volume with left lower lobe atelectasis.3.? No abnormal mediastinal or axillary lymphadenopathy seen. Patient was then discharged from [facility] rehab, discharge summary from rehab unavailable at this time. Patient denies any changes to his medications and denies any need for any refills. Patient states feeling good, denies any pain. Patient requesting a referral to the Cardiology to reestablish care, previously entered by PCP will follow-up on referral. Patient also requesting referral to podiatry for bilateral yellowing of the toenails treatment of toenail fungus and urology referral new recurrence of incontinence. Unable to obtain urine in office today patient states he does not feel the need to avoid Patient has daily [employer] services every day. [facility] Medical History Abnormal laboratory test BPH (benign prostatic hyperplasia) CKD (chronic kidney disease) Diabetes Dyslipidemia Gout Hypertension Hypovitaminosis D Iron deficiency anemia Physical exam Psoriasis Seizures Stroke Surgical History History of kidney stones History of open reduction and internal fixation (ORIF) procedure Family History Mother Heart problem Father Bone cancer Social History Housing: Apartment Alcohol intake: never Patient Tobacco Use Status: Never used Tobacco e-Cigarette/Vaping Use: Never Used Second Hand Smoke Exposure: No Advance Directives Date on File: 10/17/22 service: No Current occupational status: disabled Cognitive needs: Yes Hearing needs: No Vision needs: No Questionnaire Thrive Questionnaire Date Thrive assessed: 04/19/22 AUDIT C Alcohol Use Questionnaire (AUDIT-C) 1. How often do you have a drink containing alcohol?: Never Total Score: 0 KERRY-7 AMB Questionnaire KERRY-7 Date KERRY - 7 assessed: 04/19/22 Source: Developed by Drs. Lalito Robbins, Laura Cedeno, Quang Alexander and colleagues, with an educational tanya from [employer]. Review of Systems Const Denies chills, Denies fatigue, Denies fever(s) and Denies poor appetite Eyes Denies no additional complaints ENT Reports Normal hearing present Card Denies chest pain, Denies syncope, Denies rapid heart rate and Denies dyspnea Resp Denies cough and Denies dyspnea GI Denies change in stool character, Denies constipation, Denies diarrhea, Denies nausea and Denies vomiting Denies dysuria, Denies urinary frequency and Denies urinary urgency Neuro Reports Normal hearing present, Denies confusion and Denies syncope Psych Denies confusion Endo Denies fatigue Physical exam (Primary Care) Vital Signs: Last Vital Signs Pulse 61 11/18/22 12:54 BP 128/76 11/18/22 12:54 Pulse Ox 96 11/18/22 12:54 Oxygen Delivery Method Room Air 11/18/22 12:54 BMI result Body Mass Index 30.4 Tobacco/Smoking Status: Tobacco use Status Tobacco use date assessed 11/18/22 11/18/22 13:31 Patient Tobacco Use Status Never used Tobacco 11/18/22 12:54 e-Cigarette/Vaping Use Never Used 11/18/22 12:54 Thrive Assessment: Date of Thrive Assessment Date Thrive assessed 04/19/22 11/18/22 12:54 Const General: No confusion Orientation/consciousness: No confusion HENMT Head: Yes normocephalic and Yes atraumatic Eyes Conjunctivae: conjunctivae normal Chest Chest palpation & inspection: normal inspection of the chest Resp Effort & Inspection: normal respiratory effort Auscultation: clear to auscultation bilaterally, no crackles, no rhonchi and no wheezes Cardio Rate: regular rate Rhythm: regular rhythm Heart sounds: S1 normal heart sound present and S2 normal heart sound present GI Inspection: Yes normal to inspection Neuro General: No confusion Cranial nerves: Yes Normal hearing present Extrem General: No edema Results AMB INR Fingerstick AMB INR Fingerstick 2.2 Last Edit by Chhaya Patterson RN on 11/18/22 09:57 VNA Assessment and Plan Assessment & Plan (1) CHF (congestive heart failure): Code(s): I50.9 - Heart failure, unspecified Plan: Previously referred to Cardiology will follow-up on referral. (2) Onychomycosis: Code(s): B35.1 - Tinea unguium Plan: Referral entered Podiatry as requested by patient. (3) Incontinence: Code(s): R32 - Unspecified urinary incontinence Plan: Patient requesting referral to urologist, referral entered. CBC, CMP and urinalysis ordered (4) Dyslipidemia: Code(s): E78.5 - Hyperlipidemia, unspecified Plan: Continue on atorvastatin 40 mg at bedtime. Follow low-cholesterol diet. (5) Hypertension: Code(s): I10 - Essential (primary) hypertension Qualifiers: Hypertension type: essential hypertension Qualified Code(s): I10 - Essential (primary) hypertension Plan: Continue on metoprolol 12.5 mg daily and amlodipine 2.5mg daily. (6) Atrial fibrillation: Code(s): I48.91 - Unspecified atrial fibrillation Plan: Continue on metoprolol on Coumadin Plan keep scheduled follow up with pcp or follow sooner if needed. Orders: Orders Comprehensive Met. Panel 11/18/22 I50.9 - Heart failure, unspecified Complete Blood Count Auto Diff 11/18/22 Z13.0 - Encounter for screening for diseases of the blood and blood-forming organs and certain disorders involving the immune mechanism UA CC w/rflx Micro + Cult 11/18/22 R32 - Unspecified urinary incontinence Referrals Podiatry Referral B35.1 - Tinea unguium Urology Referral R32 - Unspecified urinary incontinence Medications: New miscellaneous medical supply 1 ea miscellaneous DAILY 1 ea 0RF I50.9 - Heart failure, unspecified Discontinued warfarin See Protocol 5MG X2DAYS/ 2.5MG X5DAYS; 90 tabs 0RF allopurinol 100 mg PO QAM 90 tabs 0RF N18.9 - Chronic kidney disease, unspecified amlodipine 2.5 mg PO QAM 90 days 90 tabs 3RF N18.9 - Chronic kidney disease, unspecified fluoxetine 20 mg PO QAM 90 caps 0RF N18.9 - Chronic kidney disease, unspecified metoprolol succinate ER 12.5 mg (1/2 x 25 mg) PO QAM 90 tabs 0RF N18.9 - Chronic kidney disease, unspecified hydrocortisone 10 mg (2 x 5 mg) PO QAM 60 days 120 tabs 0RF Coding Level of Care Code Est Pt Level 4 (76754) Diagnoses CHF (congestive heart failure) I50.9 Onychomycosis B35.1 Incontinence R32 Dyslipidemia E78.5 Hypertension I10 Hypertension type: essential hypertension Atrial fibrillation I48.91
[2022-11-18 12:54] VITALS: BP 128/76; PULSE 61; O2SAT 96; BMI 30.4
== END 2022-11-18 14:15 | disposition home or self-care (01) ==
PROVIDERS: PCP Internal Medicine; Visit Provider Nurse Practitioner Family
DX: I11.0 Hypertensive heart disease with heart failure (principal); I50.9 Heart failure, unspecified; I48.91 Unspecified atrial fibrillation; B35.1 Tinea unguium; R32 Unspecified urinary incontinence; E78.5 Hyperlipidemia, unspecified
CPT/HCPCS: 99214

== ENCOUNTER 2022-11-25 09:56 | Outpatient (REF) | payer OTHER, SELFPAY ==
--- NOTE | 2022-11-25 11:04 | PFT_ITS ---
FLOWS: 1. FEV1 71% of predicted at 2.67 L. 2. FVC 67% of predicted at 3.20 L. 3. FEV1 to FVC ratio of 0.83. 4. Positive bronchodilator response. LUNG VOLUMES: 1. Total lung capacity 72% of predicted at 5.67 L. 2. Residual volume 89% of predicted at 2.53 L. 3. Slow vital capacity 62% of predicted at 3.14 L. 4. Expiratory reserve volume 53% of predicted at 0.78 L. 5. Diffusion capacity is moderately decreased, diffusion capacity adjusted, being mildly decreased after correction for alveolar ventilation. 6. Of note, the patient had difficulty performing airway maneuvers secondary to residual deficit after stroke. IMPRESSION: Moderate restrictive ventilatory defect with positive bronchodilator response. Of note, test results may not concisely represent the patient's underlying lung function, as the patient had difficulties performing test maneuvers secondary to residual deficits from prior cerebrovascular accident. MD JACKELYN Sprague/MODL / [id number]
== END 2022-11-25 09:57 | disposition home or self-care (01) ==
LOC: HO.RESP 09:56
PROVIDERS: PCP Internal Medicine; Visit Provider Internal Medicine
DX: R06.09 Other forms of dyspnea (principal); I48.0 Paroxysmal atrial fibrillation; Z51.81 Encounter for therapeutic drug level monitoring; Z79.01 Long term (current) use of anticoagulants
CPT/HCPCS: 94010; 94727; 94729

== ENCOUNTER → 2022-11-25 11:04 | Outpatient (BNV) | payer OTHER, SELFPAY | PROVIDERS: PCP Internal Medicine; Visit Provider Internal Medicine Pulmonary Disease | DX: R06.09 Other forms of dyspnea (principal) | CPT/HCPCS: 94060; 94727; 94729 ==

== ENCOUNTER → 2022-12-02 13:21 | Outpatient (BNVA) | payer OTHER, SELFPAY | PROVIDERS: PCP Internal Medicine; Visit Provider Internal Medicine ==

== ENCOUNTER → 2022-12-05 09:39 | Outpatient (REF) | payer OTHER, SELFPAY ==
--- NOTE | 2022-12-05 09:43 | CA_ITS ---
Transthoracic Echocardiogram Patient (Last, First, Middle): Yousif Mcintosh, Gender: Male Date of : 1945 Age: 77 Procedure Date: 12/05/2022 Procedure Type: Transthoracic Echocardiogram Location: OP Height: 187.96 cm Weight: 105.69 kg BSA: 2.32 m2 Heart Rate: 71 bpm BP: 132 / 70 mmHg Equipment Operator: SB Referring MD: Poonam Mejia MD Symptoms: R06.09 - Other forms of dyspnea Study Quality: Adequate w contrast ECG Rhythm: Atrial Fibrillation Conclusions: - The left ventricular systolic function is normal. The calculated ejection fraction is 66% by biplane method. - There is severe septal and severe basal asymmetric hypertrophy. - There is mildly decreased right ventricular systolic function. - No obvious valvular pathology seen on this study. - There is mild dilatation of the ascending aorta measuring 4.00 cm. Findings Procedure Information Contrast agent, definity, is being given per protocol without apparent complications. The quality of the study was technically difficult. The study quality is limited by patients body habitus. Left Ventricle Normal left ventricular cavity size. The left ventricular systolic function is normal. The calculated ejection fraction is 66% by biplane method. There is no evidence of regional wall motion abnormalities. Diastolic function is indeterminate on the basis of available data. There is severe septal and severe basal asymmetric hypertrophy. Right Ventricle Mildly increased right ventricular cavity size. There is mildly decreased right ventricular systolic function. Atria The left atrium is normal in size. The right atrium is mildly dilated. Aortic Valve There is a normal trileaflet aortic valve. There is no aortic valve stenosis. There is trace (trivial) aortic valve regurgitation. Mitral Valve The mitral valve appears normal. There is trace mitral valve regurgitation. There is no mitral valve stenosis. Pulmonic Valve The pulmonic valve is likely normal. Tricuspid Valve There is mild tricuspid valve regurgitation. There is no evidence of pulmonary hypertension. Great Vessels There is mild dilatation of the ascending aorta measuring 4.00 cm. Venous The inferior vena cava is normal in size and collapses greater than 50% with inspiration. Pericardium/Pleural Prominent epicardial adipose tissue noted. There is no evidence of pericardial effusion. Prior Study Comparison Changes noted compared to prior study dated: 07/24/2014. LVEF higher. Recommendations, Care & Conclusions No obvious valvular pathology seen on this study. Measurements 2D Linear Measurements IVSd: 1.68 0.6-0.9/0.6-1.0 cm LVIDd: 4.93 3.9-5.3/4.2-5.9 cm LVIDd Index: 2.13 2.4-3.2/2.2-3.1 cm/m2 LVIDs: 4.17 2.0-3.6 cm LVPWd: 0.63 0.7-1.1 cm LA Diam: 3.80 2.7-3.8/3.0-4.0 cm LAIDs Index: 1.64 1.5-2.3 cm/m2 LV Mass: 269.74 67-162/88-224 g LV Mass Index: 116.27 43-95/49-115 g/m2 LVOT Diam: 2.50 3.0+(-)1.3 cm 2D Systolic Function EF 4C: 68.90 >55% EF 2C: 63.00 >55% EF BiP: 65.90 >55% Mitral Valve MV Pk E: 0.80 E'Medial: 4.95 E/E' Med: 16.20 Aortic Valve AoV Pk Aaron: 1.03 AoV Pk Grad: 4.00 DEEP: 3.90 AI Pk Aaron: 4.60 AI Rincon: 1.67 LVOT LVOT Pk Aaron: 0.80 LVOT Mn Aaron: 0.52 LVOT VTI: 0.14 LVOT Pk Grad: 3.00 LVOT Mn Grad: 1.00 LVOT Diam: 2.50 LVOT Area: 4.91 Diastolic Function MV Pk E: 0.80 E'Medial: 4.95 E/E' Med: 16.20 Right Ventricle TAPSE (mm): 16.30 TVS' Aaron: 9.90 Tricuspid Valve TR Pk Aaron: 2.13 TR Pk Grad: 18.00 RA Press: 3.00 RVSP: 21.00 Great Vessels Aorta Sinus of Valsalva: 4.00 2.0-3.5 cm Ao Asc: 4.00 2.1-3.4 cm Pulmonary Valve PV Pk Aaron: 0.77 Peak PV Grad: 2.00 Updated in Other Vendor System with Status of Final Wing Chacon MD electronically signed on 12/05/2022 11:18:21 AM with status of Final
== END ==
LOC: HO.CARD 09:39
PROVIDERS: PCP Internal Medicine; Visit Provider Internal Medicine
DX: R06.09 Other forms of dyspnea (principal); R01.1 Cardiac murmur, unspecified
CPT/HCPCS: 93306; Q9957

== ENCOUNTER → 2022-12-05 09:43 | Outpatient (BNV) | payer OTHER, SELFPAY | PROVIDERS: PCP Internal Medicine; Visit Provider Internal Medicine | DX: I48.91 Unspecified atrial fibrillation (principal) | CPT/HCPCS: 93306 ==

== ENCOUNTER → 2022-12-09 13:56 | Outpatient (BNVA) | payer OTHER, SELFPAY | PROVIDERS: PCP Internal Medicine; Visit Provider Internal Medicine | DX: Z79.01 Long term (current) use of anticoagulants (principal) ==

== ENCOUNTER → 2022-12-16 13:27 | Outpatient (BNVA) | payer OTHER, SELFPAY | PROVIDERS: PCP Internal Medicine; Visit Provider Internal Medicine ==

== ENCOUNTER → 2022-12-23 14:13 | Outpatient (BNVA) | payer OTHER, SELFPAY | PROVIDERS: PCP Internal Medicine; Visit Provider Internal Medicine ==

== ENCOUNTER 2022-12-26 12:10 | Outpatient (AMB) | payer OTHER, SELFPAY ==
--- NOTE | 2022-12-26 12:31 | MHC.OFFVIS ---
Intake Vital Signs 12/26/22 12:32 Height 6 ft 2 in Weight 233 lb 3.985 oz BMI 29.9 BP 94/60 Blood Pressure Location Lt brachial Position Sitting Pulse 94 Intake Visit Reasons: [employer]YING [employer]/ [place]/ afib Intake Note: NPV Family Literacy Coordinator Required: No Accompanied by: SEMIAUTOMATIC STITCHER OPERATOR Allergies No Known Allergies Allergy (Verified 12/26/22 12:37) Medication List - Last Reconciled 12/26/22 by Wing Chacon MD [adult diapers pull-ups As directed] allopurinol 100 mg PO DAILY amlodipine 2.5 mg PO DAILY aspirin 81 mg PO DAILY 3 months atorvastatin 40 mg PO BEDTIME 90 days blood sugar diagnostic (FreeStyle Lite Strips) TEST ONCE DAILY blood-glucose meter (FreeStyle Lite Meter kit) As directed diaper,brief,adult,disposable (Briefs, Adult-Extra Large) As directed famotidine 20 mg PO DAILY PRN 30 days ferrous sulfate 325 mg PO DAILY 60 days fluoxetine 20 mg PO QAM 90 days hydrocortisone (Cortef) 10 mg (2 x 5 mg) PO DAILY lancets TEST ONCE DAILY levetiracetam 750 mg PO BID 3 months magnesium oxide 500 mg (2 x 250 mg magnesium) PO TID 30 days metformin 500 mg PO BID 90 days metoprolol succinate ER 12.5 mg PO DAILY mirtazapine 15 mg PO BEDTIME 3 months miscellaneous medical supply 1 ea miscellaneous DAILY [power wheelchair As directed] tamsulosin 0.4 mg PO DAILY 3 months warfarin 5 mg See Protocol PO SUWE@1800 warfarin 1 mg See Protocol PO DAILY warfarin 2.5 mg See Protocol PO MOTUTHFRSA@1800 HPI HPI Comments History of Present Illness Details Yousif is here for consultation regarding atrial fibrillation. Patient is not entirely aware of this condition and clarified several times but he is not able to answer. Per EKGs, it has been present for many years. When I go back in 2011, it is still atrial fibrillation. Hence atrial fibrillation has been present for more than 10 years. For meds, he is on small dose of beta-blockers. He is also on warfarin. Minimal activity at baseline and seems he also needs wheelchair. He denies any prior history of coronary artery disease myocardial infarction or cardiomyopathy. What there is a history of stroke from many years ago. Otherwise, he describes random chest pains in no specific manner. Difficult to characterize. Shortness of breath off and on. Overall, variable symptoms. [facility] Medical History Abnormal laboratory test BPH (benign prostatic hyperplasia) CKD (chronic kidney disease) Diabetes Dyslipidemia Gout Hypertension Hypovitaminosis D Iron deficiency anemia Physical exam Psoriasis Seizures Stroke Surgical History History of open reduction and internal fixation (ORIF) procedure History of kidney stones Family History Mother Heart problem Father Bone cancer Social History Housing: Apartment Alcohol intake: never Patient Tobacco Use Status: Never used Tobacco e-Cigarette/Vaping Use: Never Used Second Hand Smoke Exposure: No Advance Directives Date on File: 10/17/22 service: No Current occupational status: disabled Cognitive needs: Yes Hearing needs: No Vision needs: No Review of Systems Const Denies chills, Denies daytime sleepiness, Denies fatigue, Denies fever(s), Denies frequent falls, Denies night sweats, Denies snoring, Denies weakness, Denies weight gain and Denies weight loss Eyes Denies loss of vision ENT Denies dizziness and Denies hearing loss Card Denies chest pain, Denies chest pain with activity, Denies syncope, Denies rapid heart rate, Denies edema, Denies claudication, Denies leg edema, Denies lightheadedness, Denies palpitations, Denies dyspnea, Denies dyspnea on exertion and Denies orthopnea Resp Denies cough, Denies excessive phlegm production, Denies dyspnea, Denies dyspnea on exertion, Denies snoring and Denies wheezing GI Denies abdominal pain, Denies hematochezia, Denies change in bowel habits, Denies change in stool character, Denies heartburn, Denies nausea and Denies vomiting Denies hematuria, Denies dysuria and Denies urinary frequency Musc Denies arthralgias, Denies muscle weakness, Denies numbness and Denies tingling Skin/Breast Denies nail changes and Denies rash Neuro Denies Abnormal speech present, Denies dizziness, Denies syncope, Denies frequent falls, Denies loss of vision, Denies memory loss, Denies numbness, Denies tingling and Denies weakness Psych Denies depression and Denies memory loss Endo Denies fatigue and Denies palpitations Aller/Immun Denies wheezing Physical Exam Vital Signs: Last Vital Signs Pulse 94 12/26/22 12:32 BP 94/60 12/26/22 12:32 BMI result Body Mass Index 29.9 Const General: comfortable and no acute distress Orientation/consciousness: patient oriented x3 HEENT Other: Unremarkable Head: Yes normal to inspection Neck Neck: Yes normal visual inspection Chest Chest palpation & inspection: normal inspection of the chest Resp Auscultation: clear to auscultation bilaterally Cardio Palpation: normal PMI Heart sounds: S1 normal heart sound present, S2 normal heart sound present, no gallops, no murmurs and no rubs GI Palpation (GI): Soft to palpation Back/Spine/Pelvis Other: unremarkable Skin General skin exam: no rashes or lesions noted Neuro General: patient oriented x3 Speech: No Abnormal speech present Extrem General: Yes normal to inspection Psych Mental Status: mental status grossly normal Assessment & Plan Assessment & Plan (1) Atrial fibrillation: Code(s): I48.91 - Unspecified atrial fibrillation Qualifiers: Atrial fibrillation type: longstanding persistent Qualified Code(s): I48.11 - Longstanding persistent atrial fibrillation Plan: Has been present for at least 10 years. He remains on warfarin. In the future, if approved by insurance, possibly switch to Eliquis. Get Holter for further evaluation. (2) Precordial chest pain: Code(s): R07.2 - Precordial pain Plan: Variable presentation and not classic for angina. Because of risk factors, he is at increased risk for coronary disease. He is highly unlikely to exercise on the treadmill, based on poor mobility. He has history of seizures and hence Lexiscan is also a contraindication. Dobutamine could be considered as an alternative, but he does have underlying atrial fibrillation on small dose of beta-blockers. Possibly the only option. 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 No specific findings of LV outflow tract obstruction. Can be followed up as needed. No overt heart failure findings. Orders: Orders NM cardiolite stress test Today R07.2 - Precordial pain ECG 3 day holter monitor Today I48.91 - Unspecified atrial fibrillation CA dobutamine stress w deepti Today R07.2 - Precordial pain Coding Level of Care Code New Pt Level 4 (00953) Diagnoses Longstanding persistent atrial fibrillation I48.11 Atrial fibrillation type: longstanding persistent Precordial chest pain R07.2 Asymmetric septal hypertrophy I42.2
[2022-12-26 12:32] VITALS: BP 94/60; PULSE 94; BMI 29.9
== END 2022-12-26 12:58 | disposition home or self-care (01) ==
PROVIDERS: PCP Internal Medicine; Referring Provider Internal Medicine; Visit Provider Internal Medicine
DX: I48.11 Longstanding persistent atrial fibrillation (principal); R07.2 Precordial pain; I42.2 Other hypertrophic cardiomyopathy
CPT/HCPCS: 99204

== ENCOUNTER → 2022-12-26 12:10 | Outpatient (BNVA) | payer OTHER, SELFPAY | PROVIDERS: PCP Internal Medicine; Referring Provider Internal Medicine; Visit Provider Internal Medicine ==

== ENCOUNTER 2022-12-29 12:31 | Outpatient (AMB) | payer OTHER, SELFPAY ==
--- NOTE | 2022-12-29 13:09 | A.OFFVIS_ITS ---
Intake Intake Visit Reasons: urge incontinence Intake Note: New Patient presents for initial visit urge incontinence Urology Medications: tamsulosin Blood Thinner: Warfarin, aspirin PVR: 9ml's Elastic Attacher Chainstitch Required: Yes Elastic Attacher Chainstitch Name: Neida Accompanied by: Unknown Allergies No Known Allergies Allergy (Verified 12/30/22 12:00) Medication List - Last Reconciled 12/29/22 by LING Gonzalez [adult diapers pull-ups As directed] allopurinol 100 mg PO DAILY amlodipine 2.5 mg PO DAILY aspirin 81 mg PO DAILY 3 months atorvastatin 40 mg PO BEDTIME 90 days blood sugar diagnostic (FreeStyle Lite Strips) TEST ONCE DAILY blood-glucose meter (FreeStyle Lite Meter kit) As directed diaper,brief,adult,disposable (Briefs, Adult-Extra Large) As directed famotidine 20 mg PO DAILY PRN 30 days ferrous sulfate 325 mg PO DAILY 60 days fluoxetine 20 mg PO QAM 90 days hydrocortisone (Cortef) 10 mg (2 x 5 mg) PO DAILY lancets TEST ONCE DAILY levetiracetam 750 mg PO BID 3 months magnesium oxide 500 mg (2 x 250 mg magnesium) PO TID 30 days metformin 500 mg PO BID 90 days metoprolol succinate ER 12.5 mg PO DAILY mirabegron ER (Myrbetriq) 25 mg PO DAILY 30 days mirtazapine 15 mg PO BEDTIME 3 months miscellaneous medical supply 1 ea miscellaneous DAILY [power wheelchair As directed] tamsulosin 0.4 mg PO DAILY 3 months warfarin 5 mg See Protocol PO SUWE@1800 warfarin 1 mg See Protocol PO DAILY warfarin 2.5 mg See Protocol PO MOTUTHFRSA@1800 HPI HPI Comments History of Present Illness Details Yousif is a very pleasant 77-year-old [place]ian-speaking male patient of who was accompanied by his PURCHASING OFFICER worker at today's office visit. He has a past medical history of chronic kidney disease, iron deficiency anemia, psoriasis, stroke in 2012, seizures, dyslipidemia, gout, hypertension, and diabetes. Patient presents to the office today as a new patient for urinary incontinence. In discussion with the patient his PSA worker to appears incontinence has been present for quite some time however feels symptoms are worsening. He discusses feeling incontinence is worse. He reports to be using 1 adult diaper throughout the day and 1 again at night. He discusses having the urgency to utilize the bathroom however given his decreased mobility at times he is unable to make it to the bathroom at which time he becomes somewhat incontinent. He reports incontinence to be small amounts of urine. In review of patient's chart it appears patient is on Flomax. However when asked he is unsure how long he has been on this medication. Discussed at length potential causes for urinary incontinence. Discussed importance of managing diabetes for improvement in urinary symptoms as well as overall health and well-being. Discussed given decreased mobility importance of scheduled toileting. He otherwise denies hematuria, dysuria, foul smelling urine, changes to urinary stream, flank pain, fever, and or chills. In office urinalysis results reviewed with the patient today. PVR 9 mL. PFS Medical History CKD (chronic kidney disease) Physical exam Iron deficiency anemia Psoriasis Stroke Seizures Dyslipidemia BPH (benign prostatic hyperplasia) Hypovitaminosis D Gout Abnormal laboratory test Hypertension Diabetes Surgical History History of open reduction and internal fixation (ORIF) procedure History of kidney stones Family History Mother Heart problem Father Bone cancer Social History Housing: Apartment Alcohol intake: never Patient Tobacco Use Status: Never used Tobacco e-Cigarette/Vaping Use: Never Used Second Hand Smoke Exposure: No Advance Directives Date on File: 10/17/22 service: No Current occupational status: disabled Cognitive needs: Yes Hearing needs: No Vision needs: No Review of Systems Const Reports as per HPI Eyes Reports no additional complaints ENT Reports no additional complaints Card Reports as per HPI Resp Reports no additional complaints GI Reports as per HPI Reports as per HPI Musc Reports as per HPI Neuro Reports as per HPI Psych Reports no additional complaints Endo Reports as per HPI Duncan/Lymph Reports no additional complaints Aller/Immun Reports no additional complaints Physical Exam Const General: cooperative, comfortable, no acute distress, well developed, alert and awake Orientation/consciousness: patient oriented x3 Limitations: ambulation with walker HEENT Head: Yes normal to inspection, Yes normocephalic and Yes atraumatic Ears: hearing grossly normal bilaterally Eyes General: appearance normal, both eyes and all related structures Neck Neck: Yes normal visual inspection and Yes trachea midline Chest Chest palpation & inspection: normal inspection of the chest Resp Effort & Inspection: normal respiratory effort and able to speak in complete sentences Cardio Rate: regular rate GI Inspection: Yes normal to inspection General: Yes no CVA tenderness Back/Spine/Pelvis Back: no CVA tenderness Skin General skin exam: no rashes or lesions noted Neuro General: patient oriented x3 Extrem General: Yes normal to inspection Psych Appearance: grossly normal and well kempt Mental Status: mental status grossly normal Speech and movement: Normal speech and movement present and Clear speech present Affect: normal affect Attitude: cooperative Thought process: Normal thought process present Thought content: Normal thought content present Insight: Fair insight present (Psych) Judgement: Fair judgement present (Psych) Office Procedures Post Void Residual Post Residual Void Post Void Residual (PVR): 9 [id number] Void Residual by ultrasound Results AMB Urinalysis, Automated UA Leukoctes 125 Saira/uL Last Edit by [employer] [place] [id number] on 12/29/22 13:32 UA Nitrite Last Edit by [employer] Loly on 12/29/22 13:32 UA Urobilinogen 0.2 mg/dL Last Edit by Ventiva on 12/29/22 13:32 UA Protein 0 mg/dL Last Edit by [employer] [id number] on 12/29/22 13:32 UA pH 6.0 Last Edit by [employer] on 12/29/22 13:32 UA Blood 0 Cameron/uL Last Edit by [employer] on 12/29/22 13:32 UA Specific Colquitt 1.015 Last Edit by [employer] on 12/29/22 13:32 UA Ketone Negative Last Edit by [employer] on 12/29/22 13:32 UA Bilirubin 0 mg/dL Last Edit by [employer] on 12/29/22 13:32 UA Glucose 0 mg/dL Last Edit by Ventiva on 12/29/22 13:32 Results Reviewed Results Reviewed: Laboratory Last Values Urine pH (Auto) 6.0 12/29/22 13:19 Specific [place]itt (Auto) 1.015 12/29/22 13:19 Urine Protein (Auto) 0 mg/dL 09/14/23 13:19 Glucose (UA)(Auto) 0 mg/dL 12/29/22 13:19 Urine Ketones (Auto) Negative 12/29/22 13:19 Urine Blood (Auto) 0 Cameron/uL 12/29/22 13:19 Urine Bilirubin (Auto) 0 mg/dL 12/29/22 13:19 Urine Urobilinogen (Auto) 0.2 mg/dL 12/29/22 13:19 Leukocyte Esterase (Auto) 125 Saira/uL 12/29/22 13:19 Assessment & Plan Assessment & Plan (1) Urge urinary incontinence: Code(s): N39.41 - Urge incontinence (2) BPH (benign prostatic hyperplasia): Code(s): N40.0 - Benign prostatic hyperplasia without lower urinary tract symptoms Plan In office urinalysis results reviewed with the patient today; as noted above; will send for urine culture. PVR 9 mL. Discussed at length potential causes for urinary incontinence. Discussed at length importance of managing diabetes for improvement in urinary symptoms as well as overall health and well-being. Will obtain PSA for further assessment evaluation. Will obtain retroperitoneal ultrasound for further assessment evaluation. Start Myrbetriq as discussed and prescribed. Continue Flomax 0.4 mg daily. Discussed scheduled toileting to assist with decreasing episodes of urge incontinence and decreased mobility Follow-up in 6-8 weeks with imaging and lab to be completed prior; or sooner with any issues, concerns, and or questions. Orders: Orders AMB Urinalysis Automated 12/29/22 Z13.9 - Encounter for screening, unspecified AMB Post Void Residual by ultrasound 12/29/22 N39.41 - Urge incontinence US retroperitoneal comp 12/29/22 N39.41 - Urge incontinence Prostate Specific Antigen 12/29/22 N40.0 - Benign prostatic hyperplasia without lower urinary tract symptoms Urine Culture 12/29/22 N39.41 - Urge incontinence Medications: New mirabegron ER (Myrbetriq) 25 mg PO DAILY 30 days 30 tabs 1RF N30.10 - Interstitial cystitis (chronic) without hematuria, N32.81 - Overactive bladder, R35.1 - Nocturia, R39.15 - Urgency of urination Coding Level of Care Code New Pt Level 4 (18470) Diagnoses Urge urinary incontinence N39.41 BPH (benign prostatic hyperplasia) N40.0 CPT Codes Post Residual Void - PVR CPT Code: 76594-[id number] Void Residual by ultrasound ([id number])
== END 2022-12-29 13:48 | disposition home or self-care (01) ==
PROVIDERS: PCP Internal Medicine; Visit Provider Nurse Practitioner Family
DX: N39.41 Urge incontinence (principal); N40.0 Benign prostatic hyperplasia without lower urinary tract symptoms
CPT/HCPCS: 99204

== ENCOUNTER 2022-12-29 12:31 | Outpatient (REF) | payer OTHER, SELFPAY | END 2022-12-29 12:32 | disposition home or self-care (01) | LOC: HO.LNP 12:31 | PROVIDERS: PCP Internal Medicine; Visit Provider Nurse Practitioner Family | DX: N39.41 Urge incontinence (principal); N40.0 Benign prostatic hyperplasia without lower urinary tract symptoms | CPT/HCPCS: 51798; 81003; 87086 ==

== ENCOUNTER → 2022-12-30 11:37 | Outpatient (BNVA) | payer OTHER, SELFPAY | PROVIDERS: PCP Internal Medicine; Visit Provider Internal Medicine ==

== ENCOUNTER → 2023-01-06 13:24 | Outpatient (BNVA) | payer OTHER, SELFPAY | PROVIDERS: PCP Internal Medicine; Visit Provider Internal Medicine ==

== ENCOUNTER → 2023-01-13 12:13 | Outpatient (BNVA) | payer OTHER, SELFPAY | PROVIDERS: PCP Internal Medicine; Visit Provider Internal Medicine ==

== ENCOUNTER 2023-01-19 13:22 | Outpatient (REF) | payer OTHER, SELFPAY ==
--- NOTE | ~2023-01-19 | US_ITS ---
EXAMINATION: US RETROPERITONEAL COMPLETE (RENAL) CLINICAL INFORMATION: Urge incontinence. COMPARISON: CT abdomen and pelvis 10/16/2022. Renal ultrasound 02/24/2017. TECHNIQUE: Real-time imaging of the kidneys and bladder. FINDINGS: RIGHT KIDNEY: 9.9 x 4.9 x 5.0 cm (SAG x AP x TRV). The kidney is normal in size, contour, and echogenicity. Renal cortical thickness is normal. No calculi or focal parenchymal lesions. No hydronephrosis. LEFT KIDNEY: 10.6 x 4.7 x 4.2 cm (SAG x AP x TRV). The kidney is normal in size, contour, and echogenicity. Renal cortical thickness is normal. No calculi or focal parenchymal lesions. No hydronephrosis. BLADDER: Partially distended. Bilateral ureteral jets are not demonstrated. Prevoid bladder volume is 81.0 mL. Postvoid bladder volume is not obtained; patient was unable to void at the moment of the examination. Enlarged prostate, volume 70 mL. US/US retroperitoneal comp IMPRESSION: 1. No nephrolithiasis or hydronephrosis. 2. Enlarged prostate. 3. Post void volume was not obtained, patient was unable to void at the moment of this examination. Recommend clinical correlation for outlet obstruction.
== END 2023-01-19 13:23 | disposition home or self-care (01) ==
LOC: HO.US 13:22
PROVIDERS: PCP Internal Medicine; Visit Provider Nurse Practitioner Family
DX: N39.41 Urge incontinence (principal)
CPT/HCPCS: 76770

== ENCOUNTER → 2023-01-20 16:06 | Outpatient (BNVA) | payer OTHER, SELFPAY | PROVIDERS: PCP Internal Medicine; Visit Provider Internal Medicine ==

== ENCOUNTER → 2023-02-03 11:47 | Outpatient (BNVA) | payer OTHER, SELFPAY | PROVIDERS: PCP Internal Medicine; Visit Provider Internal Medicine ==

== ENCOUNTER → 2023-02-06 09:31 | Outpatient (REF) | payer OTHER, SELFPAY ==
--- NOTE | ~2023-02-06 | NM_ITS ---
Dobutamine Myocardial perfusion study Indication: Precordial chest pain to evaluate for myocardial ischemia Technique: The patient was brought in for an dobutamine perfusion study on 02/06/2023. Patient performed testing as per dobutamine protocol and was injected 35 mCi of sestamibi was given intravenously one target HR was achieved. Images were obtained using the SPECT gamma camera interlaced with the gating device. Images were obtained in supine position. Resting perfusion study was performed on 02/08/2023. Patient was administered 35 mCi of sestamibi intravenously at rest. Images were then obtained in supine position. Images obtained with and without CT attenuation. Total DLP 195 mGy-cm. Images were processed with the software and compared side to side in short axis, horizontal long axis and vertical long axis views. Findings: The stress perfusion study showed mildly reduced uptake in the basal and mid lateral wall of the LV myocardium. On non attenuated images. Attenuated corrected images show mildly reduced uptake in the basal lateral wall of the LV myocardium.. The gated study shows normal LV systolic function with calculated LVEF of 54%. LV cavity is normal in in size. The gated study shows normal systolic wall thickening and contraction of all segments. There is no transient ischemic dilation. Resting study shows no change in perfusion pattern compared to stress perfusion study. Gating at rest reveals normal systolic wall motion with ejection fraction at 54%. The findings are consistent with no reversible defect suggestive wall ischemia. Fixed basal lateral defect most likely attenuation artifact.. NM/NM cardiolite stress test Impression: 1. Likely normal myocardial perfusion 2. Gated LVEF is 54% 3. Transient ischemic dilatation not present Stress EKG is negative for ischemia
--- NOTE | 2023-02-06 09:34 | CA_ITS ---
Acquisition Time: 2023-02-06 09:49:30 Total Exercise Time: 00:07:12 Test Indications: CP, AFIB Medications: SEE H Protocol: DOBUTAMINE Max HR: 144 BPM 100% of Pred: 143 BPM Max BP: 108/062 mmHG Max Work Load: 1.0 METS Pharmacological stress test with Dobutamine infusion to max of 20mcg/kg/min, achieving > 90% MPHR, without anginal symptoms, with isolated PVCs, with low BP at baseline and no significant change during infusion, without EKG change meeting criteria for ischemia. Nuclear images pending. Test reviewed with Dr Lamar Referred By: Wing Chacon Overread By: FUNMILAYO WORTHINGTON
--- NOTE | 2023-02-06 09:34 | HM_ITS ---
Conclusion: 1. Patient was monitored for total period of 2 days and 22 hours 2. Baseline rhythm is atrial fibrillation with average heart of 71 beats per minute with good rate control 3. Occasional PVCs noted 4. No significant pauses noted 5. No patient reported events MTDD
== END ==
LOC: HO.CARD 09:31
PROVIDERS: PCP Internal Medicine; Visit Provider Internal Medicine
DX: R07.2 Precordial pain (principal); I48.91 Unspecified atrial fibrillation
CPT/HCPCS: 78452; 93017; 93242; A9500; J1250

== ENCOUNTER → 2023-02-06 09:48 | Outpatient (BNV) | payer OTHER, SELFPAY | PROVIDERS: PCP Internal Medicine; Visit Provider Internal Medicine Cardiovascular Disease | DX: I48.91 Unspecified atrial fibrillation (principal) | CPT/HCPCS: 78452; 93016; 93018; 93244 ==

== ENCOUNTER → 2023-02-10 10:56 | Outpatient (BNVA) | payer OTHER, SELFPAY | PROVIDERS: PCP Internal Medicine; Visit Provider Internal Medicine ==

== ENCOUNTER 2023-02-11 20:52 | Emergency (ER) | payer OTHER, SELFPAY ==
--- NOTE | ~2023-02-11 | CT_ITS ---
EXAMINATION: CT brain and CT cervical spine without contrast. CLINICAL INDICATIONS: Fall. COMPARISON: CT brain 10/17/2022. TECHNIQUE: 5 mm thin axial and reformatted 2 mm thin sagittal and coronal images of brain were obtained. Subsequently axial 3 mm thin and reformatted 2 mm thin sagittal and coronal images of cervical spine were obtained. DLP 1517.. This CT examination was performed using dose optimization technique as appropriate, variously including the following: Automated exposure control Adjustment of MA and/or KV according to patient size(this includes techniques or standardized protocols for targeted exams where dose is matched to indication/reason for exam; extremities or head. Use of iterative reconstruction techniques. FINDINGS: Brain: There is no acute intra-axial, extra-axial bleed, masses or midline shift. No acute infarction evolution seen. The left frontal lobe encephalomalacia likely from old insult. The lateral ventricles are asymmetrical but enlarged. The rider to white matter difference is maintained normal. There is moderate hypodensity in the left subcortical white matter similar previous study from 10/16/2022. No midline shift. No abnormality seen in the posterior fossa. Bone windows reveal no calvarial abnormality. The sinuses are clear. Cervical spine: There is maintained cervical lordosis. The vertebral heights, alignment and disc heights are preserved. There is mild ventral spondylosis C3-C4 through C6-C7 disc levels. Mild superior spurring at the C1-C2 alignment is noted. No visible acute fracture, dislocation or subluxation seen. The airway is well aerated and clear. Minimal scarring or atelectasis seen in left lung apex. Thyroid lobes are symmetrical. CT/CT cervical spine wo IV con IMPRESSION: No acute intracranial process seen. Stable left frontal lobe encephalomalacia and mild dilation of left lateral ventricle. There is no visible acute fracture, dislocation subluxation in cervical spine. There is mild ventral spondylosis C3-C4 through C6-C7 disc levels.
--- NOTE | ~2023-02-11 | XR_ITS ---
EXAMINATION: XR HIP, LEFT CLINICAL INFORMATION: Fall. Pain. COMPARISON: None available. TECHNIQUE: AP and lateral views of the left hip. AP view of the pelvis FINDINGS: There is a nondisplaced fractures of the greater trochanter. No intertrochanteric components are identified. Bones are osteopenic. Femoral head and neck are unremarkable. No acute fractures are identified in the osseous pelvis. Minimal osteoarthritis in both hips with marginal osteophytes. Old healed right proximal femoral fracture status post ORIF. Mild osteoarthritis in the SI joints. Degenerative spondylosis in the lower lumbar spine. XR/XR hip LT w PEL1V IMPRESSION: 1. Nondisplaced fracture of the left greater trochanter. No appreciable intertrochanteric components. 2. No acute fractures are identified in the osseous pelvis.
--- NOTE | ~2023-02-11 | CT_ITS ---
EXAMINATION: CT PELVIS WITHOUT CONTRAST CLINICAL INFORMATION: Left hip fracture COMPARISON: Pelvis and left hip radiographs 02/11/2023 TECHNIQUE: Helical scanning was performed with submillimeter collimation through the pelvis. Sagittal and coronal multiplanar 2-D reconstructions were obtained. This CT examination was performed using dose optimization techniques as appropriate, variously including the following: *Automated exposure control *Adjustment of mA and/or kV according to patient size (this includes techniques or standardized protocols for targeted exams where dose is matched to indication/reason for exam; i.e. extremities or head) *Use of iterative reconstruction technique DLP: 464 mGy-cm FINDINGS: Again seen is a undisplaced fracture involving the greater trochanter of the left hip seen on the earlier plain film radiographs. No other femoral fracture is seen. No pelvic fracture is detected. There is an intramedullary jose and screw present in the right hip as seen previously. No sacral or coccyx fracture is seen. Some mild degenerative endplate changes are seen at L4-L5. No bony destructive lesions. Aortic calcification is seen along with iliofemoral calcification. No aneurysms. There is moderate BPH with normal-appearing seminal vesicles. Sigmoid diverticulosis is present without diverticulitis. The remainder of the visualized bowel is unremarkable. No ascites is present. The bladder appears unremarkable. CT/CT pelvis wo IV con IMPRESSION: Undisplaced fracture involving the greater trochanter of the left hip.
--- NOTE | ~2023-02-11 | CT_ITS ---
EXAMINATION: CT ABDOMEN AND PELVIS WITHOUT CONTRAST CLINICAL INFORMATION: Acute kidney insufficiency COMPARISON: Previous CT of the pelvis from yesterday, renal and bladder ultrasound 01/19/2023. Previous CT of the abdomen and pelvis January 2016. Report only October 2022 CT. Images not currently available. TECHNIQUE: Multidetector volumetric imaging was performed from the superior aspect of the liver through the pubic symphysis. Sagittal and coronal reformatted images were obtained on the technologist's workstation. This CT examination was performed using dose optimization techniques as appropriate, variously including the following: *Automated exposure control *Adjustment of mA and/or kV according to patient size (this includes techniques or standardized protocols for targeted exams where dose is matched to indication/reason for exam; i.e. extremities or head) *Use of iterative reconstruction technique DLP: 1020 mGy-cm FINDINGS: LUNG BASES: The visualized lung bases are clear. The heart is enlarged. LIVER, GALLBLADDER, AND BILIARY TREE: The liver is normal in size, shape, and attenuation. No focal hepatic lesion or biliary ductal dilatation is present. Small gallstones in the gallbladder. The gallbladder is otherwise normal. PANCREAS: Fatty infiltration of the pancreas. SPLEEN: Unremarkable. ADRENAL GLANDS: Partially solid partially fatty right adrenal mass with peripheral calcification measuring 6 x 7 cm. This measured 5 x 6 cm January 2016. Normal left adrenal gland. KIDNEYS AND URETERS: The kidneys are normal in size, shape, and attenuation. No hydronephrosis, hydroureter, or calculi seen. No perinephric stranding. BLADDER: Unremarkable. GASTROINTESTINAL TRACT: Diverticulosis of the colon. No evidence of diverticulitis. The small and large bowel are otherwise unremarkable. The appendix is unremarkable. ABDOMINAL WALL: No significant hernia is appreciated. LYMPH NODES: Normal. VASCULAR: Unremarkable. PELVIC VISCERA: Lightly enlarged measuring 4.5 by or 0.6 cm. OSSEOUS STRUCTURES: Degenerative changes of the spine. Old mild L1 body compression fracture versus Schmorl's node. Nondisplaced left greater trochanter fracture. Orthopedic hardware in the right proximal femur unchanged. CT/CT abdomen pelvis wo IV con IMPRESSION: Normal-appearing kidneys. 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 Slightly enlarged prostate gland Diverticulosis. Gallstones. Nondisplaced greater trochanter fracture. Fleischner guidelines were followed.
[2023-02-11 20:58] VITALS: BP 140/84; PULSE 99; O2SAT 94
[2023-02-11 21:00] VITALS: BP 114/69; PULSE 81; RESP 16; TEMP 36.6; O2SAT 94; BMI 25.7
--- NOTE | 2023-02-11 21:38 | ED_ITS ---
HPI - Fall General Chief Complaint: Fall Stated Complaint: mechanical fall, -LOC,-thinners, pain in both legs Time Seen by Provider: 02/11/23 21:36 Source: patient and director of reimbursement Mode of arrival: EMS Limitations: no limitations History of Present Illness HPI Narrative: Patient with left MCA stroke with right hemiparesis wheelchair bound on Coumadin for [place] and stood up from the wheelchair to urinate lost balance tried to sat on the wheelchair which moved and the patient fell down on his left side hitting his left hip and head to the ground no loss of consciousness no chest pain or palpitation at this time patient comes pain in the left hip no vomiting patient had INR done yesterday was 4.4 and today was 2.5 per patient Related Data Home Medications Medication Instructions Recorded Confirmed amlodipine 2.5 mg tablet 2.5 mg PO DAILY 10/16/22 02/03/23 metoprolol succinate 25 mg 12.5 mg PO DAILY 10/16/22 02/03/23 tablet,extended release 24 hr Previous Rx's Medication Instructions Recorded power wheelchair #1 ea 02/27/21 atorvastatin 40 mg tablet 40 mg PO BEDTIME 90 days #90 tabs 08/17/22 mirtazapine 15 mg tablet 15 mg PO BEDTIME 3 months #90 tabs 08/17/22 ferrous sulfate 325 mg (65 mg 325 mg PO DAILY 60 days #60 tabs 10/01/22 iron) tablet warfarin 1 mg tablet 1 mg PO DAILY #7 tabs 11/05/22 aspirin 81 mg tablet,delayed 81 mg PO DAILY 3 months #90 tabs 11/12/22 release levetiracetam 750 mg tablet 750 mg PO BID 3 months #180 tabs 11/12/22 tamsulosin 0.4 mg capsule 0.4 mg PO DAILY 3 months #90 caps 11/12/22 miscellaneous medical supply 1 ea miscellaneous DAILY #1 ea 11/18/22 adult diapers pull-ups #240 ea 12/06/22 famotidine 20 mg tablet 20 mg PO DAILY PRN heartburn 30 12/16/22 days #30 tabs allopurinol 100 mg tablet 100 mg PO DAILY #90 tabs 12/24/22 hydrocortisone 5 mg tablet (Cortef) 10 mg (2 x 5 mg) PO DAILY #120 tabs 09/09/23 fluoxetine 20 mg capsule 20 mg PO QAM 90 days #90 caps 12/25/22 mirabegron 25 mg tablet,extended 25 mg PO DAILY 30 days #30 tabs 12/29/22 release 24 hr (Myrbetriq) blood sugar diagnostic (OneTouch #100 ea 01/11/23 Ultra Test strips) blood-glucose meter (OneTouch #1 ea 01/11/23 Ultra2 Meter) lancets 30 gauge (Onetouch Delica #100 ea 01/11/23 Safety Lancet) magnesium oxide 500 mg (2 x 250 mg magnesium) PO 01/17/23 TID 30 days #180 tabs warfarin 2.5 mg tablet 2.5 mg PO .COMPLEX #210 tabs 02/10/23 oxycodone 5 mg tablet 5 mg PO Q6H PRN pain #20 tabs 02/12/23 Allergies Allergy/AdvReac Type Severity Reaction Status Date / Time No Known Allergies Allergy Verified 02/11/23 21:09 Review of Systems 2 Review of Systems: Yes all other systems are reviewed and are negative [facility] Past Medical History Medical History CKD (chronic kidney disease) Physical exam Iron deficiency anemia Psoriasis Stroke Seizures Dyslipidemia BPH (benign prostatic hyperplasia) Hypovitaminosis D Gout Abnormal laboratory test Hypertension Diabetes Surgical History History of open reduction and internal fixation (ORIF) procedure History of kidney stones Family History Family History Mother Heart problem Father Bone cancer Social History Social History Housing: Apartment Unable to assess alcohol history related to: Unknown Alcohol intake: never Patient Tobacco Use Status: Never used Tobacco Smoked in Last 30 Days: No e-Cigarette/Vaping Use: Never Used Second Hand Smoke Exposure: No Use of substances other than those prescribed or required for medical reasons: No Advance Directives: Yes Advance Directives on File: Yes Advance Directives Date on File: 10/17/22 service: No Current occupational status: disabled Cognitive needs: Yes Hearing needs: No Vision needs: No Physical Exam 2 Vital Signs: Vital Signs: Last Vital Signs Temp 97.9 F 02/11/23 21:00 Pulse 81 02/11/23 21:00 Resp 16 02/11/23 22:05 BP 114/69 02/11/23 21:00 Pulse Ox 94 02/11/23 21:00 O2 Del Method Room Air 02/11/23 21:00 BMI result Body Mass Index 25.7 Appearance: Alert. Oriented X3. No acute distress. Eyes: PERRLA, HEENT: Pharynx normal. Oral Mucosa moist soft tissue swelling on the right parietal area Neck: Normal inspection. Neck supple. CVS: Normal heart rate and rhythm. Pulses normal. Respiratory: No respiratory distress. Equal air entry bilateral, no wheezing/rales/rhonchi Abdomen: Soft and nontender. Bowel sounds are present, no mass palpable, no CVA tenderness Skin: Skin warm and dry. Normal skin color. Normal skin turgor. Extremities: No lower extremity edema. No calf tenderness tenderness at left greater trochanteric no deformity of the lower extremity pelvis stable neurovascular intact Neuro: Oriented X 3. Residual right-sided weakness No cerebellar signs , cranial nerves II-XII intact Medications Administered Discontinued Medications Generic Name Dose Route Start Last Admin Trade Name Freq PRN Reason Stop Dose Admin Oxycodone HCl 10 mg 02/11/23 23:05 02/11/23 23:15 Oxycodone Hcl Immed Release 5 Mg Tablet PO 02/11/23 23:06 10 mg ONCE ONE Administration Medical Decision Making Medical Decision Making [facility] Narrative: Patient status post mechanical fall with left greater trochanteric fracture nondisplaced patient had a stroke with right-sided weakness has PCU comes to his house twice daily 2 hours in the morning 2 hours in the evening in the night patient is alone and he does get up from the wheelchair to go to bathroom office on which would be difficult for him to do it with greater trochanteric fracture. Case discussed with orthopedics patient does not need any surgical intervention has to be nonweightbearing. Which is not possible for the patient to be do at home at this time will consult case management for placement for rehab Differential Diagnosis Differential Diagnoses: The differential diagnosis associated with the presentation includes Greater trochanteric fracture/intertrochanteric fracture/pelvic fracture/ICH/cervical fracture Lab Data [facility] Lab Attestation statement: I reviewed the patient's lab results. 02/11/23 22:37 02/11/23 22:37 Labs: Lab Results 02/11/23 Range/Units 22:37 WBC 8.7 (4.8-10.8) X10*3/uL RBC 4.49 L (4.60-5.80) X10*6/uL Hgb 12.0 L (14.0-18.0) g/dl Hct 37.0 L (42.0-52.0) % MCV 82.4 (80.0-98.0) fL MCH 26.7 L (27.0-33.0) pg MCHC 32.4 (31.0-36.0) g/dl RDW 14.0 (11.0-16.0) % Plt Count 210 (160-400) X10*3/uL MPV 10.3 (9.4-12.4) fL Immature Gran % (Auto) 0.3 (0.0-0.4) % Neut % (Auto) 77.5 H (45-73) % Lymph % (Auto) 14.2 L (20-40) % Stearns % (Auto) 4.0 (2-11) % Eos % (Auto) 3.5 (0-4) % Baso % (Auto) 0.5 (0-2) % Lymph # (Auto) 1.2 (1.2-4.9) X10*3/uL Stearns # (Auto) 0.4 (0.1-1.2) X10*3/uL Eos # (Auto) 0.3 (0.0-0.4) X10*3/uL Baso # (Auto) 0.0 (0.0-0.2) X10*3/uL Abs Immat Gran (auto) 0.03 (0.00-0.03) X10*3/uL Absolute Neuts (auto) 6.7 (2.0-8.3) x10*3/uL Absolute Nucleated RBC 0.000 (0.0-0.012) X10*3/uL Nucleated RBC % (auto) 0.0 (0.0-0.2) /100WBC PT 27.5 H (11.1-13.3) SEC INR 2.3 H (0.9-1.1) Sodium 139 (135-145) mmol/L Potassium 4.7 (3.3-5.1) mmol/L Chloride 103 (96-108) mmol/L Carbon Dioxide 25 (22-29) mmol/L Anion Gap 16 (12-20) BUN 27 H (9-16) mg/dL Creatinine 1.73 H (0.5-1.4) mg/dL Estim Creat Clear Calc 41.5 Estimated GFR 38 Random Glucose 134 H (60-115) mg/dL Calcium 9.9 D (8.4-10.2) mg/dL Total Bilirubin 0.4 (0.0-1.0) mg/dL AST 12 (5-37) U/L ALT 7 (0-40) U/L Alkaline Phosphatase 118 H (39-117) U/L Total Protein 6.5 (6.5-8.0) g/dL Albumin 3.7 (3.5-5.0) g/dL Radiology Impression Discussion of test interpretation with radiology: I have reviewed the radiologist's reading. Radiologist Impression: CT/CT pelvis wo IV con IMPRESSION: Undisplaced fracture involving the greater trochanter of the left hip. Discharge Plan Discharge Clinical Impression: Fracture of greater trochanter of left femur Patient Disposition: Still a Patient Additional Instructions: Fracture of your left hip does not require surgery Need rest and pain medication and it should heal Physical therapy as advised Follow with Orthopedics for further management Prescriptions: New oxycodone 5 mg tablet 5 mg PO Q6H PRN (Reason: pain) Qty: 20 0RF Rx Instructions: Partial Fill upon patient request. No Action (DME) power wheelchair See Rx Instructions .Route .MEDSUPPLY Qty: 1 0RF Rx Instructions: As directed ferrous sulfate 325 mg (65 mg iron) tablet 325 mg PO DAILY 60 Days Qty: 60 6RF warfarin 1 mg tablet 1 mg PO DAILY Qty: 7 0RF Protocol: Dose Management Condition: Monday (Week One) Dose/Route: 5 mg Instruction: 2 x 2.5 mg tablets Condition: Monday Dose/Route: 2.5 mg Instruction: 1 x 2.5 mg tablet Condition: Monday Dose/Route: 5 mg Instruction: 2 x 2.5 mg tablets Condition: Monday Dose/Route: 5 mg Instruction: 2 x 2.5 mg tablets Condition: Dose/Route: 2.5 mg Instruction: 1 x 2.5 mg tablet Condition: Monday Dose/Route: 0 mg Instruction: 0 tablets Condition: Monday Dose/Route: 5 mg Instruction: 2 x 2.5 mg tablets Condition: Monday (Week Two) Dose/Route: 5 mg Instruction: 2 x 2.5 mg tablets Condition: Monday Dose/Route: 2.5 mg Instruction: 1 x 2.5 mg tablet Condition: Monday Dose/Route: 5 mg Instruction: 2 x 2.5 mg tablets Condition: Monday Dose/Route: 5 mg Instruction: 2 x 2.5 mg tablets Condition: Dose/Route: 2.5 mg Instruction: 1 x 2.5 mg tablet Condition: Monday Dose/Route: 5 mg Instruction: 2 x 2.5 mg tablets Condition: Monday Dose/Route: 5 mg Instruction: 2 x 2.5 mg tablets Protocol Text: Adjustment Start Date: Monday02/10/23 INR Value: 4.4 INR Date: 02/10/23 Recheck Date: 02/13/23 tamsulosin 0.4 mg capsule 0.4 mg PO DAILY 90 Days Qty: 90 0RF aspirin 81 mg tablet,delayed release (DR/EC) 81 mg PO DAILY 90 Days Qty: 90 0RF levetiracetam 750 mg tablet 750 mg PO BID 90 Days Qty: 180 0RF (DME) adult diapers pull-ups XL See Rx Instructions .Route .MEDSUPPLY Qty: 240 11RF Rx Instructions: As directed famotidine 20 mg tablet 20 mg PO DAILY PRN (Reason: heartburn) 30 Days Qty: 30 2RF hydrocortisone [Cortef] 5 mg tablet 10 mg PO DAILY Qty: 120 0RF allopurinol 100 mg tablet 100 mg PO DAILY Qty: 90 0RF fluoxetine 20 mg capsule 20 mg PO QAM 90 Days Qty: 90 1RF (DME) blood-glucose meter [OneTouch Ultra2 Meter] Misc See Rx Instructions .Route Qty: 1 0RF Rx Instructions: test once per day (DME) OneTouch Ultra Test Strip See Rx Instructions .Route Qty: 100 4RF Rx Instructions: test once per day (DME) lancets [Onetouch Delica Safety Lancet] 30 gauge misc See Rx Instructions .Route Qty: 100 4RF Rx Instructions: test once per day magnesium oxide 250 mg magnesium tablet 500 mg PO TID 30 Days Qty: 180 1RF warfarin 2.5 mg tablet 2.5 mg PO .COMPLEX Qty: 210 0RF Protocol: Dose Management Condition: Monday (Week One) Dose/Route: 5 mg Instruction: 2 x 2.5 mg tablets Condition: Monday Dose/Route: 2.5 mg Instruction: 1 x 2.5 mg tablet Condition: Monday Dose/Route: 5 mg Instruction: 2 x 2.5 mg tablets Condition: Monday Dose/Route: 5 mg Instruction: 2 x 2.5 mg tablets Condition: Dose/Route: 2.5 mg Instruction: 1 x 2.5 mg tablet Condition: Monday Dose/Route: 0 mg Instruction: 0 tablets Condition: Monday Dose/Route: 5 mg Instruction: 2 x 2.5 mg tablets Condition: Monday ( Two) Dose/Route: 5 mg Instruction: 2 x 2.5 mg tablets Condition: Monday Dose/Route: 2.5 mg Instruction: 1 x 2.5 mg tablet Condition: Monday Dose/Route: 5 mg Instruction: 2 x 2.5 mg tablets Condition: Monday Dose/Route: 5 mg Instruction: 2 x 2.5 mg tablets Condition: Dose/Route: 2.5 mg Instruction: 1 x 2.5 mg tablet Condition: Monday Dose/Route: 5 mg Instruction: 2 x 2.5 mg tablets Condition: Monday Dose/Route: 5 mg Instruction: 2 x 2.5 mg tablets Protocol Text: Adjustment Start Date: Monday02/10/23 INR Value: 4.4 INR Date: 02/10/23 Recheck Date: 02/13/23 Rx Instructions: 2.5 mg orally 2.5mg x 2 days/ 5mg x 5 days; or as directed amlodipine 2.5 mg tablet 2.5 mg PO DAILY metoprolol succinate 25 mg tablet extended release 24 hr 12.5 mg PO DAILY atorvastatin 40 mg tablet 40 mg PO BEDTIME 90 Days Qty: 90 3RF mirtazapine 15 mg tablet 15 mg PO BEDTIME 90 Days Qty: 90 3RF miscellaneous medical supply Kit 1 ea miscellaneous DAILY Qty: 1 0RF Myrbetriq 25 mg tablet extended release 24 hr 25 mg PO DAILY 30 Days Qty: 30 1RF
--- NOTE | 2023-02-11 21:54 | ECG_ITS ---
Test Reason : CHEST PAIN Blood Pressure : / mmHG Vent. Rate : 081 BPM Atrial Rate : 000 BPM P-R Int : 000 ms QRS Dur : 072 ms QT Int : 378 ms P-R-T Axes : 000 -49 023 degrees QTc Int : 439 ms Atrial fibrillation Left anterior fascicular block Nonspecific T wave abnormality Lateral leads Abnormal ECG When compared with ECG of 16-OCT-2022 13:52, No significant changes seen Referred By: Danny Ng Electronically Signed By:JIGNESH HARTMAN MD
[2023-02-11 22:05] VITALS: RESP 16
--- NOTE | 2023-02-11 22:27 | MHC.EDTECH ---
Patient inc therefore patient changed and repositioned
[2023-02-11 22:43] LABS: MANUAL DIFF FLAG NO
[2023-02-11 22:44] LABS: Basophils Percent Auto 0.5 % (0-2); Eosinophils Absolute Auto 0.3 X10*3/uL (0.0-0.4); Eosinophils Percent Auto 3.5 % (0-4); Imm Gran Abs Auto 0.03 X10*3/uL (0.00-0.03); Imm Gran Pct Auto 0.3 % (0.0-0.4); Lymphocytes Absolute Auto 1.2 X10*3/uL (1.2-4.9); Lymphocytes Percent Auto 14.2 % (20-40); Mean Corpuscular HGB Conc 32.4 g/dl (31.0-36.0); Mean Corpuscular Hemoglobin 26.7 pg (27.0-33.0); Mean Corpuscular Volume 82.4 fL (80.0-98.0); Mean Platelet Volume 10.3 fL (9.4-12.4); Monocytes Absolute Auto 0.4 X10*3/uL (0.1-1.2); Neutrophils Absolute Auto 6.7 x10*3/uL (2.0-8.3); Neutrophils Percent Auto 77.5 % (45-73); Platelet Count 210 X10*3/uL (160-400); Red Blood Count 4.49 X10*6/uL (4.60-5.80); White Blood Count 8.7 X10*3/uL (4.8-10.8)
[2023-02-11 22:55] LABS: INTERNATIONAL NORM RATIO 2.3 (0.9-1.1); Prothrombin Time 27.5 SEC (11.1-13.3)
[2023-02-11 23:01] LABS: Alanine Aminotransferase 7 U/L (0-40); Albumin Level 3.7 g/dL (3.5-5.0); Alkaline Phosphatase 118 U/L (39-117); Anion Gap 16 (12-20); Aspartate Amino Transferase 12 U/L (5-37); Bilirubin Total 0.4 mg/dL (0.0-1.0); Blood Urea Nitrogen 27 mg/dL (9-16); Calcium 9.9 mg/dL (8.4-10.2); Carbon Dioxide 25 mmol/L (22-29); Chloride 103 mmol/L (96-108); Creatinine Clr Calc Pharmacy 41.5; Estimated Glomerular Filt Rate 38; Glucose Random 134 mg/dL (60-115); Potassium 4.7 mmol/L (3.3-5.1); Sodium 139 mmol/L (135-145); Total Protein 6.5 g/dL (6.5-8.0)
[2023-02-11] MEDS: oxyCODONE HCl Immed Release 5 MG TABLET 10 MG PO (23:15)
--- NOTE | 2023-02-12 04:22 | PC.NURSE ---
pt resting comfortably on stretcher in no apparent distress provided with warm blanket and needs met. call guillory within reach . PT/CM eval for possible STR.
[2023-02-12 06:05] VITALS: BP 113/68; PULSE 87; RESP 16; O2SAT 92
--- NOTE | 2023-02-12 09:06 | PC.NURSE ---
patient awake, eating breakfast. linens changed, pt cleaned able to roll on bed with assistance from staff. after breakfast, to be placed in hospital bed for comfort.
--- NOTE | 2023-02-12 09:20 | PHA.MEDREC ---
Pharmacy Consult ? Medication Reconciliation Pharmacy has completed the medication reconciliation. left ZONE MAINTENANCE TECHNICIAN a voicemail (Adry Rubi [phone]). Reviewed med rec done by nursing, used claim history to verify. Warfarin regimen according to previous anticoag visit here is 2.5mg on Monday and and 5mg on Monday, Monday, Monday, Monday, and Monday. Per note, it was held on 02/10 and directed to continue 5mg 02/11 and 02/12.
--- NOTE | 2023-02-12 10:01 | MHC.CM.PN ---
CM RECEIVED CONSULT REQUEST FROM ED PROVIDER. CM MET WITH PT AND AUTO PARTS MANAGER AT BEDSIDE IN THE ED. PT IS AGREEABLE TO STR HE IS NOT ABLE TO GO HOME SAFELY BEING NON-WEIGHTBEARING. PENDING P.T. EVAL AND INSURANCE AUTH WILL NEED TO BE SOUGHT ONCE A BED OFFER HAS BEEN MADE ([facility] CLOSED UNTIL MONDAY) PT WOULD LIKE A CENTER IN [place] BUT CANNOT RECALL WHICH CENTER. REFERRALS TO BE MADE ONCE P.T. HAS EVALUATED. 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 MUKHERJEE AT [facility]. CM WILL CONTINUE TO FOLLOW FOR DC PLAN/NEEDS.
[2023-02-12 10:03] VITALS: BP 112/74; PULSE 82; RESP 16; O2SAT 93
[2023-02-12] MEDS: Tamsulosin HCL 0.4 MG CAPSULE PO (10:05)
[2023-02-12] MEDS: Ferrous Sulfate 324 MG TABLET.DR PO (10:05)
[2023-02-12] MEDS: amLODIPine Besylate 2.5 MG TABLET PO (10:05)
[2023-02-12] MEDS: Magnesium Oxide 400 MG TABLET PO ×3 (10:05→20:28)
[2023-02-12] MEDS: Aspirin Enteric Coated 81 MG TABLET.DR PO (10:05)
[2023-02-12] MEDS: Metoprolol Succinate ER 12.5 MG HALFTAB.ER.24H PO (10:05)
[2023-02-12] MEDS: allopurinoL 100 MG TABLET PO (10:05)
[2023-02-12] MEDS: oxyCODONE HCl Immed Release 5 MG TABLET PO ×2 (10:06→17:46)
[2023-02-12] MEDS: levETIRAcetam 500 MG TABLET 750 MG PO ×2 (10:06→20:28)
[2023-02-12] MEDS: FLUoxetine HCl 20 MG CAPSULE PO (10:06)
[2023-02-12 13:05] LABS: INTERNATIONAL NORM RATIO 2.6 (0.9-1.1); Prothrombin Time 31.7 SEC (11.1-13.3)
[2023-02-12] MEDS: Warfarin Sodium 2.5 MG TABLET 5 MG PO (17:47)
[2023-02-12 20:10] VITALS: BP 105/73; PULSE 66; RESP 18; O2SAT 91
[2023-02-12] MEDS: Mirtazapine 15 MG TABLET PO (20:28)
[2023-02-12] MEDS: Atorvastatin Calcium 40 MG TABLET PO (20:34)
--- NOTE | 2023-02-13 05:09 | PC.NURSE ---
pt repositioned in bed for safety, incontinent of urine
[2023-02-13 06:00] VITALS: BP 109/68; PULSE 81; RESP 17; TEMP 36.6; O2SAT 93
[2023-02-13 07:34] VITALS: BP 112/69; PULSE 85; RESP 18; O2SAT 92
[2023-02-13 08:02] LABS: Prothrombin Time 36.4 SEC (11.1-13.3)
[2023-02-13 08:08] VITALS: BP 106/67; PULSE 77; RESP 18; O2SAT 93
[2023-02-13] MEDS: Ferrous Sulfate 324 MG TABLET.DR PO (08:09)
[2023-02-13] MEDS: Metoprolol Succinate ER 12.5 MG HALFTAB.ER.24H PO (08:09)
[2023-02-13] MEDS: allopurinoL 100 MG TABLET PO (08:09)
[2023-02-13] MEDS: Tamsulosin HCL 0.4 MG CAPSULE PO (08:09)
[2023-02-13] MEDS: Aspirin Enteric Coated 81 MG TABLET.DR PO (08:09)
[2023-02-13] MEDS: FLUoxetine HCl 20 MG CAPSULE PO (08:09)
[2023-02-13] MEDS: Magnesium Oxide 400 MG TABLET PO ×3 (08:10→20:39)
[2023-02-13] MEDS: amLODIPine Besylate 2.5 MG TABLET PO (08:10)
[2023-02-13] MEDS: levETIRAcetam 500 MG TABLET 750 MG PO ×2 (08:10→20:38)
[2023-02-13 08:14] LABS: Anion Gap 15 (12-20); Blood Urea Nitrogen 34 mg/dL (9-16); Calcium 9.6 mg/dL (8.4-10.2); Carbon Dioxide 21 mmol/L (22-29); Chloride 105 mmol/L (96-108); Creatinine Clr Calc Pharmacy 38.4; Estimated Glomerular Filt Rate 35; Glucose Random 192 mg/dL (60-115); Sodium 136 mmol/L (135-145)
--- NOTE | 2023-02-13 08:20 | PC.NURSE ---
pt is alert and oriented, skin appropriate for ethnicity, respirations stephanie and unlabored, pt denies pain at this time, pt resting on his right side with pillows under the left side. pt ate his breakfast and took his morning meds with whole with water with out any difficulties
[2023-02-13 09:30] VITALS: BP 115/68; PULSE 91; RESP 18; TEMP 36.6; O2SAT 91
--- NOTE | 2023-02-13 09:33 | PC.NURSE ---
patient a&ox3, lungs exp wheezing at base, pt denies pain to lle, + csm/pulses, vss, call guillory within reach, will continue to monitor
[2023-02-13] MEDS: Hydrocortisone 10 MG TABLET PO (09:37)
[2023-02-13] MEDS: Mirabegron 25 MG TAB.ER.24H PO (09:37)
[2023-02-13 09:49] LABS: COVID-19 Test Negative (Negative); IDNOW Serial# 08D9AD1C
[2023-02-13 14:00] VITALS: BP 114/66; PULSE 78; RESP 18; TEMP 527.2; TEMP 981; O2SAT 92
[2023-02-13 14:37] VITALS: BP 115/68; PULSE 91; O2SAT 91
[2023-02-13] MEDS: 0.9 % Sodium Chloride 1,000 ML 999 ML IV (15:37)
--- NOTE | 2023-02-13 15:41 | PC.NURSE ---
patient a&o, denies pain/discomfort, pt has + csm/pulses to lle, iv inserted, IVF started per order, pt speaking on phone with family- pt is aware he is going to have a ct scan-flux tube attendant used, call guillory within reach, will continue to monitor
--- NOTE | 2023-02-13 16:23 | PC.NURSE ---
patient had large loose BM, applying a [place] cath to obtain urine, will continue to monitor
--- NOTE | 2023-02-13 16:35 | PC.NURSE ---
condom cath placed
--- NOTE | 2023-02-13 17:30 | PC.NURSE ---
pt to ct scan
[2023-02-13] MEDS: Warfarin Sodium 2.5 MG TABLET PO (18:31)
--- NOTE | 2023-02-13 18:32 | PC.NURSE ---
pt medicated per order
--- NOTE | 2023-02-13 18:43 | PC.NURSE ---
pts condom cath fell off and pt was incontinent of large amount of urine, bed change performed, new condom cath placed to obtain a urine when he goes again.
[2023-02-13] MEDS: Atorvastatin Calcium 40 MG TABLET PO (20:38)
[2023-02-13] MEDS: oxyCODONE HCl Immed Release 5 MG TABLET PO (20:38)
[2023-02-13] MEDS: Mirtazapine 15 MG TABLET PO (20:39)
[2023-02-13 21:11] LABS: Appearance Urine Clear; Color Urine Yellow; Glucose Urine UA Negative (Negative); Leukocyte Esterase Urine Small (1+) (Negative); Nitrite Urine Negative (Negative); Specific Gravity - Urine 1.015 (1.005-1.025); UMIC TRIGGER UACC YES; Urine Blood Negative (Negative); Urine Ketones Negative (Negative); Urine Protein Negative (Neg-Trace)
[2023-02-13 21:16] LABS: Bacteria Urine None Seen (None Seen); Hyaline Casts Urine 0-2 /LPF (0-2); RBC Urine 0-2 /HPF (0-2); Squamous Epithelial Cell Urine 0-2 /HPF (0-2); UACC Culture Trigger YES
--- NOTE | 2023-02-13 21:28 | PC.NURSE ---
pt assessed, restless, pt pointed to left hip , medicated per MAR
[2023-02-14] VITALS: BP 115/77; PULSE 72; RESP 18; TEMP 36.1; O2SAT 96
[2023-02-14 06:00] VITALS: BP 116/82; PULSE 74; RESP 18; TEMP 36.3; O2SAT 93
[2023-02-14] MEDS: Tamsulosin HCL 0.4 MG CAPSULE PO (08:24)
[2023-02-14] MEDS: Magnesium Oxide 400 MG TABLET PO ×2 (08:24→16:16)
[2023-02-14] MEDS: Ferrous Sulfate 324 MG TABLET.DR PO (08:24)
[2023-02-14] MEDS: amLODIPine Besylate 2.5 MG TABLET PO (08:24)
[2023-02-14] MEDS: Metoprolol Succinate ER 12.5 MG HALFTAB.ER.24H PO (08:24)
[2023-02-14] MEDS: Aspirin Enteric Coated 81 MG TABLET.DR PO (08:25)
[2023-02-14] MEDS: levETIRAcetam 500 MG TABLET 750 MG PO (08:25)
[2023-02-14 10:16] LABS: INTERNATIONAL NORM RATIO 2.7 (0.9-1.1); Prothrombin Time 32.9 SEC (11.1-13.3)
[2023-02-14] MEDS: FLUoxetine HCl 20 MG CAPSULE PO (11:02)
[2023-02-14] MEDS: Hydrocortisone 10 MG TABLET PO (11:02)
[2023-02-14] MEDS: Mirabegron 25 MG TAB.ER.24H PO (11:02)
[2023-02-14] MEDS: allopurinoL 100 MG TABLET PO (11:02)
--- NOTE | 2023-02-14 11:25 | MHC.CM.ED ---
Addendum entered by Alice Ramos 02/14/23 14:30: Insurance auth has been obtained. [facility] booked for 530pm. [facility] with chart. Patient, Duyen Rn and Leah PIMENTEL. Original Note: Patient remains in ER overflow. Physical therapy eval completed. Short term rehab is recommended. Met with patient and catering driver. [facility] and [facility] are able to offer a bed. Patient's 1st choice is [facility]. [facility] has been asked to go for ins auth. Continue to monitor for d/c needs.
[2023-02-14 14:00] VITALS: BP 106/75; PULSE 68; RESP 18; TEMP 36.2
--- NOTE | 2023-02-14 14:14 | PC.NURSE ---
Pt A/Ox3, emirati speaking 3d specialist utilized. Incontinent of bowel and bladder farhat care provided skin intact. INR drawn by java technical manager. Awaiting rehab placement
== END 2023-02-14 17:49 | disposition skilled nursing facility (03) ==
PROVIDERS: Physician Assistant; Physician Assistant Medical; Emergency Provider Internal Medicine; PCP Internal Medicine
DX: S72.115A Nondisplaced fracture of greater trochanter of left femur, initial encounter for closed fracture (principal); W05.0XXA Fall from non-moving wheelchair, initial encounter; E11.22 Type 2 diabetes mellitus with diabetic chronic kidney disease; I13.0 Hypertensive heart and chronic kidney disease with heart failure and stage 1 through stage 4 chronic kidney disease, or unspecified chronic kidney disease; N18.9 Chronic kidney disease, unspecified; I50.9 Heart failure, unspecified; N17.9 Acute kidney failure, unspecified; E78.5 Hyperlipidemia, unspecified; D50.9 Iron deficiency anemia, unspecified; I48.91 Unspecified atrial fibrillation; I69.351 Hemiplegia and hemiparesis following cerebral infarction affecting right dominant side; Z79.01 Long term (current) use of anticoagulants; Z79.82 Long term (current) use of aspirin; Z79.899 Other long term (current) drug therapy; Y93.9 Activity, unspecified; Y92.9 Unspecified place or not applicable; Y99.9 Unspecified external cause status
CPT/HCPCS: 36415; 70450; 72125; 72192; 73502; 74176; 80048; 80053; 81001; 85025; 85610; 87086; 87635; 93005; 96360; 97161; 99285

== ENCOUNTER → 2023-03-16 14:14 | Outpatient (BNVA) | payer OTHER, SELFPAY | PROVIDERS: PCP Internal Medicine; Visit Provider Internal Medicine ==

== ENCOUNTER → 2023-03-21 14:17 | Outpatient (BNVA) | payer OTHER, SELFPAY | PROVIDERS: PCP Internal Medicine; Visit Provider Internal Medicine ==

== ENCOUNTER 2023-03-23 09:36 | Outpatient (REF) | payer OTHER, SELFPAY ==
--- NOTE | ~2023-03-23 | XR_ITS ---
EXAMINATION: XR HIP, LEFT CLINICAL INFORMATION: Left hip pain COMPARISON: X-ray pelvis and left hip on 02/11/2023 TECHNIQUE: Frontal x-ray of the pelvis, Frontal and Frog leg lateral x-rays of left hip. FINDINGS: BONES: Persistent branching radiolucency is seen at superior cortex of left femoral greater trochanter. No callus formation could be seen. Right femoral fixation with interlocking hip compression screw and gamma nail is partially visualized. JOINTS: Alignment of hip joint is normal. SOFT TISSUE: Soft tissue is normal. No radiopaque foreign body or abnormal air collection is seen. XR/XR hip LT w PEL1V IMPRESSION: 1. Unchanged Normal pelvis x-ray. No pelvic fracture or dislocation is seen. Unchanged right femoral fixation with interlocking hip compression screw and gamma nail. 2. Unchanged radiolucency at superior cortex of left femoral greater trochanter without callus formation. No dislocation or signs of avascular necrosis are seen.
== END 2023-03-23 09:37 | disposition home or self-care (01) ==
LOC: HO.HOSX 09:36
PROVIDERS: Visit Provider Physician Assistant
DX: S72.112D Displaced fracture of greater trochanter of left femur, subsequent encounter for closed fracture with routine healing (principal); I69.351 Hemiplegia and hemiparesis following cerebral infarction affecting right dominant side; I48.91 Unspecified atrial fibrillation; Z99.3 Dependence on wheelchair; Z79.01 Long term (current) use of anticoagulants; X58.XXXD Exposure to other specified factors, subsequent encounter
CPT/HCPCS: 73502; 99202

== ENCOUNTER 2023-03-23 14:38 | Outpatient (AMB) | payer OTHER, SELFPAY ==
--- NOTE | 2023-03-23 15:23 | MHC.OFFVIS ---
Intake Intake Visit Reasons: Fx Left femur ER follow up Intake Note: Yousif 78 yr old male presents today for his ED follow up visit from 02/11/23. States he stood up from the wheelchair to urinate, lost balance tried to sat on the wheelchair which moved and the patient fell down on his left side hitting his left hip. States his pain is better today. Patient is wheelchair bound. 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 He presented to the ED on 02/11/2023 status post standing up from the wheelchair to urinate when he lost his balance and tried to sit on the wheelchair, which moved, and fell down on his left side hitting his left hip and head to the ground. X-rays and CT of the left hip were obtained. The patient was discharged to [facility] and referred to orthopedics. The patient reports his pain is better today while in the office. Patient confirms he is wheelchair bound. COUNTS INCLUDE 234 BEDS AT THE [facility] Medical History CKD (chronic kidney disease) Physical exam Iron deficiency anemia Psoriasis Stroke Seizures Dyslipidemia BPH (benign prostatic hyperplasia) Hypovitaminosis D Gout Abnormal laboratory test Hypertension Diabetes Surgical History History of open reduction and internal fixation (ORIF) procedure History of kidney stones Family History Mother Heart problem Father Bone cancer Social History Housing: Apartment Unable to assess alcohol history related to: Unknown Alcohol intake: never Patient Tobacco Use Status: Never used Tobacco e-Cigarette/Vaping Use: Never Used Second Hand Smoke Exposure: No Advance Directives Date on File: 10/17/22 service: No Current occupational status: disabled Cognitive needs: Yes Hearing needs: No Vision needs: No Review of Systems Const All systems reviewed & are unremarkable except as noted in HPI and below Physical Exam Const General: cooperative and no acute distress Orientation/consciousness: patient oriented x3 Resp Effort & Inspection: normal respiratory effort and able to speak in complete sentences Cardio Peripheral pulses: Peripheral pulses 2+ throughout Skin General skin exam: no rashes or lesions noted Neuro General: patient oriented x3 Extrem Other: Left hip: Able to perform motion without pain. No other test were performed due to being wheelchair bound. Office Procedures Fracture Care Fracture Billing Code: Fracture Billing Code Assessment & Plan Assessment & Plan (1) Fracture of greater trochanter of left femur: Code(s): S72.112A - Displaced fracture of greater trochanter of left femur, initial encounter for closed fracture Qualifiers: Encounter type: initial encounter Fracture alignment: nondisplaced Fracture type: closed Qualified Code(s): S72.115A - Nondisplaced fracture of greater trochanter of left femur, initial encounter for closed fracture Plan Mr. Mcintosh is a 78-year-old male who presents in the office today, as a new patient, with a significant medical history of MCA stroke with right hemiparesis wheelchair bound on Coumadin for Afib. He presented to the ED on 02/11/2023 status post standing up from the wheelchair to urinate when he lost his balance and tried to sit on the wheelchair, which moved, and fell down on his left side hitting his left hip and head to the ground. X-rays and CT of the left hip were obtained. The patient was discharged to [facility] and referred to orthopedics. The patient reports his pain is better today while in the office. Patient confirms he is wheelchair bound. The patient may weight bear as tolerated because he is mostly wheelchair bound and only stands to pivot. I wrote instructed for physical therapy to work on this with him to help him feel move confident that he will not fall when pivoting. Follow up will be in 6 weeks with x-rays, or sooner if needed. X-rays of the left hip which were obtained while in the office today and were reviewed by me, Shivani Dewitt PA-C, revealed routine healing of a left hip greater trochanter fracture. CT of the pelvis, obtained on 02/12/2023, revealed: Undisplaced fracture involving the greater trochanter of the left hip. Orders: Orders XR hip LT w PEL1V 03/23/23 M25.559 - Pain in unspecified hip Patient Instructions: Scribed for Shivani Dewitt PA-C by Clarissa Bowen medical record retrieval specialist, on 03/23/2023 at 2:44 pm, EST. Coding Level of Care Code New Pt Level 4 (69483) Diagnoses Closed nondisplaced fracture of greater trochanter of left femur, initial encounter S72.115A Encounter type: initial encounter Fracture alignment: nondisplaced Fracture type: closed CPT Codes Fracture Care - Fracture Billing Code: Fracture Billing Code ([id number])
== END 2023-03-23 15:52 | disposition home or self-care (01) ==
PROVIDERS: PCP Internal Medicine; Visit Provider Physician Assistant
DX: S72.115A Nondisplaced fracture of greater trochanter of left femur, initial encounter for closed fracture (principal); W05.0XXA Fall from non-moving wheelchair, initial encounter; I69.351 Hemiplegia and hemiparesis following cerebral infarction affecting right dominant side
CPT/HCPCS: 99204

== ENCOUNTER → 2023-03-28 13:07 | Outpatient (BNVA) | payer OTHER, SELFPAY | PROVIDERS: PCP Internal Medicine; Visit Provider Internal Medicine ==

== ENCOUNTER 2023-03-30 10:47 | Outpatient (AMB) | payer OTHER, SELFPAY ==
--- NOTE | 2023-03-30 10:52 | MHC.PC.OV ---
Vital Signs 03/30/23 10:53 Height 6 ft 2 in Weight 227 lb 8.273 oz BMI 29.2 BP 118/68 Blood Pressure Location Lt brachial Position Sitting Intake Visit Reasons: [facility] 03/15 hemiplegia/hemiparsis Intake Note: Patient is here for hospital discharge follow up. Patient was discharged from [facility] on 03/15/23. [employer] Drawer Required: No De Icer Element Winder: Present Accompanied by: Staff Allergies No Known Allergies Allergy (Verified 03/30/23 11:11) Medication List - Last Reconciled 03/30/23 by JOCELYN Bush [adult diapers pull-ups As directed] allopurinol 100 mg PO DAILY amlodipine 2.5 mg PO DAILY aspirin 81 mg PO DAILY 3 months atorvastatin 40 mg PO BEDTIME 90 days blood sugar diagnostic ([employer] Ultra Test strips) test once per day blood-glucose meter ([employer] Ultra2 Meter) test once per day famotidine 20 mg PO DAILY PRN 30 days ferrous sulfate 325 mg PO DAILY 60 days fluoxetine 20 mg PO QAM 90 days hydrocortisone (Cortef) 10 mg (2 x 5 mg) PO DAILY lancets ([employer] Safety Lancet) test once per day levetiracetam 750 mg PO BID 3 months magnesium oxide 500 mg (2 x 250 mg magnesium) PO TID 30 days metformin 500 mg PO BID metoprolol succinate ER 12.5 mg PO DAILY mirabegron ER (Myrbetriq) 25 mg PO DAILY 30 days mirtazapine 15 mg PO BEDTIME 3 months [power wheelchair As directed] tamsulosin 0.4 mg PO DAILY 3 months warfarin See Protocol 2.5 mg orally 2.5mg x 3 days/ 5mg x 4 days; or as directed Tobacco use date assessed: 03/30/23 Fall risk assessment: 1 Fall in past year (02/11/23) Last assessed Fall Risk: 03/30/23 Dental Screening Dental Screen Date: 03/30/23 Did you have a dental visit in the last 12 months?: No Did you have a dental problem in the last 6 months where you did not have access to dental care?: No Was dental information given to patient?: No HPI HPI Comments History of Present Illness Details 78-year-old male past medical history significant for hypertension, diabetes, dyslipidemia, BPH, seizures, stroke, EUGENIO, CKD, atrial fibrillation, CHF, depression. Patient presents today for discharge follow-up from rehab on 03/15/2023. Review of the notes patient was seen at [facility] in 02/12/2020 through status post mechanical fall with left greater trochanter fracture nondisplaced. Case was reviewed with orthopedic no surgical intervention required but patient was recommended to be weight-bearing so patient was discharged to rehab. Labs did reveal mild JOYCE. Patient presents today with SCALEHOUSE ATTENDANT for follow up. Patient SCALEHOUSE ATTENDANT requesting refill on patient 2.5mg coumadin and also to have 5mg tablets prescribed as well as patient take 5mg tablet 3xw. RX sent to patients pharmacy. Denies the need for any other medication refills. Patient continues to have SCALEHOUSE ATTENDANT servises daily and VNA 3x a week. [facility] Medical History CKD (chronic kidney disease) Physical exam Iron deficiency anemia Psoriasis Stroke Seizures Dyslipidemia BPH (benign prostatic hyperplasia) Hypovitaminosis D Gout Abnormal laboratory test Hypertension Diabetes Surgical History History of open reduction and internal fixation (ORIF) procedure History of kidney stones Family History Mother Heart problem Father Bone cancer Social History Housing: Apartment Unable to assess alcohol history related to: Unknown Alcohol intake: never Patient Tobacco Use Status: Never used Tobacco e-Cigarette/Vaping Use: Never Used Second Hand Smoke Exposure: No Advance Directives Date on File: 10/17/22 service: No Current occupational status: disabled Cognitive needs: Yes (wheelchair) Hearing needs: No Vision needs: No Questionnaire Thrive Questionnaire Date Thrive assessed: 04/19/22 KERRY-7 AMB Questionnaire KERRY-7 Date KERRY - 7 assessed: 04/19/22 Source: Developed by Drs. Lalito Robbins, Laura Cedeno, Quang Alexander and colleagues, with an educational tanya from [employer]. Review of Systems Const Denies chills, Denies fatigue, Denies fever(s) and Denies poor appetite Eyes Denies no additional complaints ENT Reports Normal hearing present Card Denies chest pain, Denies syncope, Denies rapid heart rate and Denies dyspnea Resp Denies cough and Denies dyspnea GI Denies change in stool character, Denies constipation, Denies diarrhea, Denies nausea and Denies vomiting Denies dysuria, Denies urinary frequency and Denies urinary urgency Neuro Reports Normal hearing present, Denies confusion and Denies syncope Psych Denies confusion Endo Denies fatigue Physical exam (Primary Care) Vital Signs: Last Vital Signs BP 118/68 03/30/23 10:53 BMI result Body Mass Index 29.2 Tobacco/Smoking Status: Tobacco use Status Tobacco use date assessed 03/30/23 03/30/23 10:58 Patient Tobacco Use Status Never used Tobacco 03/30/23 10:58 e-Cigarette/Vaping Use Never Used 03/30/23 10:58 Thrive Assessment: Date of Thrive Assessment Date Thrive assessed 04/19/22 03/30/23 10:58 Const General: No confusion Orientation/consciousness: No confusion HENMT Head: Yes normocephalic and Yes atraumatic Eyes Conjunctivae: conjunctivae normal Chest Chest palpation & inspection: normal inspection of the chest Resp Effort & Inspection: normal respiratory effort Auscultation: clear to auscultation bilaterally, no crackles, no rhonchi and no wheezes Cardio Rate: regular rate Rhythm: regular rhythm Heart sounds: S1 normal heart sound present and S2 normal heart sound present GI Inspection: Yes normal to inspection Neuro General: No confusion Cranial nerves: Yes Normal hearing present Extrem General: No edema Office Procedures Flu Questionnaire Does the patient have a severe egg allergy?: No Does the patient have severe life threatening allergies?: No Does the patient have a fever or illness today?: No Has the patient ever had Guillain-[place] Syndrome?: No Has the patient ever had any past reaction to a flu shot?: No Immunizations flu vacc [id number] 6mos up(PF) 60 mcg(15 mcgx4)/0.5 mL IM syringe Performing Provider: JOCELYN Bush [facility] Administered by: TAWANA Sadler on 03/30/23 11:26 Dose Route Admin Location Dispensed Lot Number Expiration Date NDC Director Of Business Continuity 0.5 mL IM Left Deltoid 0.5 mL [id number] 10/15/23 91930-133-65 [facility] VIS Given Date VIS Provided VIS Publication Date 03/30/23 Single Vaccine 20 Eligibility Eligibility Date Funding Source Not [facility] Eligible 03/30/23 Private Assessment and Plan Assessment & Plan (1) Hypertension: Code(s): I10 - Essential (primary) hypertension Qualifiers: Hypertension type: essential hypertension Qualified Code(s): I10 - Essential (primary) hypertension Plan: Continue on metoprolol 12.5 mg daily. (2) Current use of anticoagulant therapy: Code(s): Z79.01 - mds coordinator (current) use of anticoagulants Plan: Continue on Coumadin as directed. Prescription sent for 2.5 mg and 5 mg tablets as requested by patient's SCALEHOUSE ATTENDANT. (3) Dyslipidemia: Code(s): E78.5 - Hyperlipidemia, unspecified Plan: Continue on atorvastatin 40 mg at bedtime. Follow low-cholesterol diet. (4) Atrial fibrillation: Code(s): I48.91 - Unspecified atrial fibrillation Qualifiers: Atrial fibrillation type: longstanding persistent Qualified Code(s): I48.11 - Longstanding persistent atrial fibrillation Plan: Continue on metoprolol and coumadin Plan Keep scheduled follow up with pcp or follow up sooner if needed. Orders: Orders Comprehensive Met. Panel Today I10 - Essential (primary) hypertension Complete Blood Count Auto Diff Today Z13.0 - Encounter for screening for diseases of the blood and blood-forming organs and certain disorders involving the immune mechanism Magnesium Today E61.2 - Magnesium deficiency Influenza [id number] Immunization Today Z23 - Encounter for immunization Medications: New warfarin See Protocol 2.5 mg orally 2.5mg x 3 days/ 5mg x 4 days; or as directed 30 tabs 0RF I48.11 - Longstanding persistent atrial fibrillation warfarin 2.5 mg orally 2.5mg x 3 days/ 5mg x 4 days; or as directed 5 mg PO 3XW 30 tabs 0RF Coding Level of Care Code Est Pt Level 3 (69446) Diagnoses Essential hypertension I10 Hypertension type: essential hypertension Current use of anticoagulant therapy Z79.01 Dyslipidemia E78.5 Longstanding persistent atrial fibrillation I48.11 Atrial fibrillation type: longstanding persistent
[2023-03-30 10:53] VITALS: BP 118/68; BMI 29.2
== END 2023-03-30 13:13 | disposition home or self-care (01) ==
PROVIDERS: PCP Internal Medicine; Visit Provider Nurse Practitioner Family
DX: I10 Essential (primary) hypertension (principal); Z79.01 Long term (current) use of anticoagulants; E78.5 Hyperlipidemia, unspecified; I48.11 Longstanding persistent atrial fibrillation; Z23 Encounter for immunization
CPT/HCPCS: 90471; 90686; 99213

== ENCOUNTER → 2023-04-04 13:48 | Outpatient (BNVA) | payer OTHER, SELFPAY | PROVIDERS: PCP Internal Medicine; Visit Provider Internal Medicine ==

== ENCOUNTER → 2023-04-11 12:29 | Outpatient (BNVA) | payer OTHER, SELFPAY | PROVIDERS: PCP Internal Medicine; Visit Provider Internal Medicine ==

== ENCOUNTER → 2023-04-18 11:04 | Outpatient (BNVA) | payer OTHER, SELFPAY | PROVIDERS: PCP Internal Medicine; Visit Provider Internal Medicine ==

== ENCOUNTER → 2023-04-24 14:28 | Outpatient (BNVA) | payer OTHER, SELFPAY | PROVIDERS: PCP Internal Medicine; Visit Provider Internal Medicine ==

== ENCOUNTER 2023-05-02 09:39 | Outpatient (REF) | payer OTHER, SELFPAY | END 2023-05-02 09:40 | disposition home or self-care (01) | LOC: HO.HOSX 09:39 | PROVIDERS: Visit Provider Physician Assistant | DX: Z13.89 Encounter for screening for other disorder (principal) ==

== ENCOUNTER → 2023-05-08 13:50 | Outpatient (BNVA) | payer OTHER, SELFPAY | PROVIDERS: PCP Internal Medicine; Visit Provider Internal Medicine ==

== ENCOUNTER 2023-05-09 10:53 | Outpatient (AMB) | payer OTHER, SELFPAY ==
[2023-05-09 10:57] VITALS: BP 98/60; BMI 29.5
--- NOTE | 2023-05-09 10:57 | A.OFFPC_ITS ---
Vital Signs 05/09/23 10:57 Height 6 ft 2 in Weight 229 lb 8.019 oz BMI 29.5 BP 98/60 Blood Pressure Location Lt brachial Position Sitting Intake Visit Reasons: Follow up on DM, rescheduled from 01/05 Intake Note: Patient here for a follow up DM, BP Audiovisual Lead Technician Required: No Accompanied by: EXECUTIVE VICE PRESIDENT AND CHIEF OPERATING OFFICER Allergies No Known Allergies Allergy (Verified 05/09/23 11:09) Medication List - Last Reconciled 05/09/23 by Poonam Mejia MD [adult diapers pull-ups As directed] allopurinol 100 mg PO DAILY amlodipine 2.5 mg PO DAILY aspirin 81 mg PO DAILY 3 months atorvastatin 40 mg PO BEDTIME 90 days blood sugar diagnostic ([employer]uv[employer]x Ultra Test strips) test once per day blood-glucose meter (Nuvilex Ultra2 Meter) test once per day famotidine 20 mg PO DAILY PRN 30 days ferrous sulfate 325 mg PO DAILY 60 days fluoxetine 20 mg PO QAM 90 days hydrocortisone (Cortef) 10 mg (2 x 5 mg) PO DAILY lancets (RetiDiag Delica Safety Lancet) test once per day levetiracetam 750 mg PO BID 3 months magnesium oxide 500 mg (2 x 250 mg magnesium) PO TID 30 days metformin 500 mg PO BID metoprolol succinate ER 12.5 mg (1/2 x 25 mg) PO DAILY mirabegron ER (Myrbetriq) 25 mg PO DAILY 30 days mirtazapine 15 mg PO BEDTIME 3 months [power wheelchair As directed] tamsulosin 0.4 mg PO DAILY 3 months warfarin See Protocol 2.5 mg orally 2.5mg x 3 days/ 5mg x 4 days; or as directed Tobacco use date assessed: 05/09/23 Fall risk assessment: 1 Fall in past year Last assessed Fall Risk: 05/09/23 Dental Screening Dental Screen Date: 05/09/23 Did you have a dental visit in the last 12 months?: No Did you have a dental problem in the last 6 months where you did not have access to dental care?: No Was dental information given to patient?: Yes HPI HPI Comments History of Present Illness Details This is a 78-year-old male with diabetes mellitus type 2, atrial fibrillation, seizures and mild major depression that comes today accompanied by EXECUTIVE VICE PRESIDENT AND CHIEF OPERATING OFFICER for follow-up on his conditions. A1c within goal. On Coumadin for atrial fibrillation. Has not had a seizure in over 3 months. Depression stable with SSRIs. His GFR decreased and I will repeat labs. [facility] Medical History CKD (chronic kidney disease) Physical exam Iron deficiency anemia Psoriasis Stroke Seizures Dyslipidemia BPH (benign prostatic hyperplasia) Hypovitaminosis D Gout Abnormal laboratory test Hypertension Diabetes Surgical History History of open reduction and internal fixation (ORIF) procedure History of kidney stones Family History Mother Heart problem Father Bone cancer Social History Housing: Apartment Unable to assess alcohol history related to: Unknown Alcohol intake: never Patient Tobacco Use Status: Never used Tobacco e-Cigarette/Vaping Use: Never Used Second Hand Smoke Exposure: No Advance Directives Date on File: 10/17/22 service: No Current occupational status: disabled Cognitive needs: Yes (wheelchair) Hearing needs: No Vision needs: No Questionnaire PHQ-9 Over the last 2 weeks, how often have you been bothered by any of the following problems? 1. Little interest or pleasure in doing things: not at all 2. Feeling down, depressed, or hopeless: not at all 3. Trouble falling or staying asleep, or sleeping too much: not at all 4. Feeling tired or having little energy: not at all 5. Poor appetite or overeating: not at all 6. Feeling bad about yourself - or that you are a failure or have let yourself or your family down: not at all 7. Trouble concentrating on things, such as reading the newspaper or watching television: not at all 8. Moving or speaking so slowly that other people could have noticed. Or the opposite - being so fidgety or restless that you have been moving around a lot more than usual: not at all 9. Thoughts that you would be better off or of hurting yourself in some way: not at all Total score: 0 Depression Screening Interpretation: Negative Depression Screening Done: Yes 65837 - PHQ-9 Billing: Yes Source: Developed by Juan Jimenezet B.W. Wilian, Quang Alexander and colleagues, with an educational tanya from [employer]. Thrive Questionnaire Date Thrive assessed: 05/09/23 I am a: Patient What is your living situation today?: I have a steady place to live Within the past 12 months, did the food you bought not last and you didn't have the money to get more?: Never true Within the past 12 months, did you worry whether your food would run out before you got money to buy more?: Never true Do you have trouble paying for medicines?: No Do you have trouble getting transportation to medical appointments?: No Do you have trouble paying your heating and electricity bill?: No Do you have trouble taking care of your child, family member or friend?: No Do you have trouble with day-to-day activities such as bathing, preparing meals, shopping, managing finances, etc.?: Yes Are you currently unemployed and looking for a job?: No Are you interested in more education?: No Please select the resources that you would like help with: None Currently or been in a relationship where the following occur: no concerns reported THRIVE Score: 0 AUDIT C Alcohol Use Questionnaire (AUDIT-C) 1. How often do you have a drink containing alcohol?: Never Total Score: 0 KERRY-7 AMB Questionnaire KERRY-7 Date KERRY - 7 assessed: 05/09/23 Feeling nervous, anxious, or on edge: 0 = Not at all Not being able to stop or control worryin = Not at all Worrying too much about different things: 0 = Not at all Trouble relaxin = Not at all Being so restless that it is hard to sit still: 0 = Not at all Becoming easily annoyed or irritable: 0 = Not at all Feeling afraid as if something awful might happen: 0 = Not at all Total KERRY-7 score (0-4 normal; 5-9 mild; 10-14 moderate; 15-21 severe): 0 Source: Developed by Drs. Lalito Robbins, Laura Cedeno, Quang Alexander and colleagues, with an educational tanya from [employer]. KERRY-7 Assessment Billing KERRY-7 Assessment Tool: KERRY-7 Assessment 65718 Review of Systems Const All systems reviewed & are unremarkable except as noted in HPI and below Eyes Reports no additional complaints, Denies change in vision and Denies other visual disturbances Card Denies chest pain at rest, Denies chest pain with activity, Denies edema, Denies irregular heart rhythm, Denies claudication, Denies dyspnea, Denies dyspnea on exertion, Denies orthopnea, Denies paroxysmal nocturnal dyspnea and Denies slow heart rate Resp Denies cough, Denies dyspnea and Denies dyspnea on exertion GI Denies abdominal pain, Denies change in bowel habits, Denies excessive flatus, Denies nausea and Denies vomiting Denies urinary hesitancy, Denies urinary incontinence and Denies urinary urgency Musc Denies abnormal gait, Denies atrophy, Denies deformity and Denies limited range of motion Skin/Breast Denies bleeding lesions, Denies changing lesions and Denies rash Neuro Denies abnormal gait and Denies lack of coordination Physical exam (Primary Care) Vital Signs: Last Vital Signs BP 98/60 05/09/23 10:57 BMI result Body Mass Index 29.5 Tobacco/Smoking Status: Tobacco use Status Tobacco use date assessed 05/09/23 05/09/23 11:03 Patient Tobacco Use Status Never used Tobacco 05/09/23 11:03 e-Cigarette/Vaping Use Never Used 05/09/23 11:03 PHQ-9: PHQ-9 Score PHQ-9: Total score 0 05/09/23 11:03 Depression Screening Interpretation: Negative Thrive Assessment: Date of Thrive Assessment Date Thrive assessed 05/09/23 05/09/23 11:03 Currently or been in a relationship where the following occur: no concerns reported Const Limitations: wheelchair Eyes General: appearance normal, both eyes and all related structures Eyelids: Yes eyelids normal Conjunctivae: conjunctivae normal Neck Neck: Yes normal visual inspection and Yes supple Resp Effort & Inspection: normal respiratory effort Auscultation: clear to auscultation bilaterally Cardio Jugular venous distension: no JVD Rate: regular rate Rhythm: regular rhythm Heart sounds: S1 normal heart sound present and S2 normal heart sound present Extrem General: Yes full ROM Results AMB Hemoglobin A1c AMB Hemoglobin A1c 6.7 % Last Edit by TAWANA Rainey on 05/09/23 11:0 7 Results Reviewed Results Reviewed: Laboratory Last Values Hgb A1c (Clinic) 6.7 % (4.0-6.0) H 05/09/23 11:06 Assessment and Plan Assessment & Plan (1) Atrial fibrillation: Code(s): I48.91 - Unspecified atrial fibrillation Qualifiers: Atrial fibrillation type: longstanding persistent Qualified Code(s): I48.11 - Longstanding persistent atrial fibrillation Plan: Continue metoprolol and Coumadin. The goal is heart rate control. (2) Mild major depression: Code(s): F32.0 - Major depressive disorder, single episode, mild Plan: Continue fluoxetine. (3) Seizures: Code(s): R56.9 - Unspecified convulsions Plan: Continue Keppra. (4) Diabetes: Code(s): E11.9 - Type 2 diabetes mellitus without complications Qualifiers: Diabetes mellitus type: type 2 Diabetes mellitus middle or intermediate school principal insulin use: unspecified nursing home insulin use status Diabetes mellitus complication status: with other specified complication Qualified Code(s): E11.69 - Type 2 diabetes mellitus with other specified complication Plan: Decrease metformin 500 mg 2 once a day. Start Jardiance. A1c goal is equal or less than 7%. Orders: Orders Complete Blood Count Auto Diff Today D64.9 - Anemia, unspecified Lipid Panel Today E78.5 - Hyperlipidemia, unspecified Uric Acid Today M10.9 - Gout, unspecified NT-proBNP Today I50.9 - Heart failure, unspecified IRON PROFILE Today D64.9 - Anemia, unspecified Vitamin D 25-OH Total Today E55.9 - Vitamin D deficiency, unspecified Comprehensive [place]. Panel Fast Today I50.9 - Heart failure, unspecified AMB Hemoglobin A1c Today E11.9 - Type 2 diabetes mellitus without complications Medications: New warfarin on odd numbered days 5 mg PO DAILY 30 days 30 tabs 6RF empagliflozin (Jardiance) 10 mg PO DAILY 90 days 90 tabs 1RF E11.9 - Type 2 diabetes mellitus without complications Changed From metformin 500 mg PO BID 90 tabs 0RF E11.69 - Type 2 diabetes mellitus with other specified complication To metformin 500 mg PO DAILY 90 days 90 tabs 1RF E11.69 - Type 2 diabetes mellitus with other specified complication Coding Level of Care Code Est Pt Level 4 (00110) Diagnoses Longstanding persistent atrial fibrillation I48.11 Atrial fibrillation type: longstanding persistent Mild major depression F32.0 Seizures R56.9 Type 2 diabetes mellitus with other specified complication, unspecified whether middle or intermediate school principal insulin use E11.69 Diabetes mellitus type: type 2 Diabetes mellitus nursing home insulin use: unspecified nursing home insulin use status Diabetes mellitus complication status: with other specified complication Additional Codes KERRY-7 Assessment Billing - KERRY-7 Assessment Tool: KERRY-7 Assessment [id number] ([id number]) Time Spent (min) 22
== END 2023-05-09 11:20 | disposition home or self-care (01) ==
PROVIDERS: PCP Internal Medicine; Visit Provider Internal Medicine
DX: I48.11 Longstanding persistent atrial fibrillation (principal); F32.0 Major depressive disorder, single episode, mild; R56.9 Unspecified convulsions; E11.69 Type 2 diabetes mellitus with other specified complication
CPT/HCPCS: 83036; 99214

== ENCOUNTER → 2023-05-15 09:43 | Outpatient (BNVA) | payer OTHER, SELFPAY | PROVIDERS: PCP Internal Medicine; Visit Provider Internal Medicine ==

== ENCOUNTER → 2023-05-22 11:58 | Outpatient (BNVA) | payer OTHER, SELFPAY | PROVIDERS: PCP Internal Medicine; Visit Provider Internal Medicine ==

== ENCOUNTER → 2023-05-29 11:03 | Outpatient (BNVA) | payer OTHER, SELFPAY | PROVIDERS: PCP Internal Medicine; Visit Provider Internal Medicine ==

== ENCOUNTER → 2023-06-12 13:16 | Outpatient (BNVA) | payer OTHER, SELFPAY | PROVIDERS: PCP Internal Medicine; Visit Provider Internal Medicine ==

== ENCOUNTER → 2023-06-19 14:02 | Outpatient (BNVA) | payer OTHER, SELFPAY | PROVIDERS: PCP Internal Medicine; Visit Provider Internal Medicine ==

== ENCOUNTER 2023-06-28 11:38 | Outpatient (AMB) | payer OTHER, SELFPAY ==
--- NOTE | 2023-06-28 11:47 | MHC.OFFVISCO ---
Intake Intake Visit Reasons: Anticoagulation Allergies No Known Allergies Allergy (Verified 06/28/23 11:39) Medication List - Last Reconciled 06/28/23 by Chhaya Patterson RN [adult diapers pull-ups As directed] allopurinol 100 mg PO DAILY aspirin 81 mg PO DAILY 3 months atorvastatin 40 mg PO BEDTIME 90 days blood sugar diagnostic ([employer] Ultra Test strips) test once per day blood-glucose meter ([employer] Ultra2 Meter) test once per day empagliflozin (Jardiance) 10 mg PO DAILY 90 days famotidine 20 mg PO DAILY PRN 30 days ferrous sulfate 325 mg PO DAILY 60 days fluoxetine 20 mg PO QAM 90 days hydrocortisone (Cortef) 10 mg (2 x 5 mg) PO DAILY lancets ([employer] Delica Safety Lancet) test once per day levetiracetam 750 mg PO BID 3 months magnesium oxide 500 mg (2 x 250 mg magnesium) PO TID 30 days metformin 500 mg PO DAILY 90 days metoprolol succinate ER 12.5 mg (1/2 x 25 mg) PO DAILY mirabegron ER (Myrbetriq) 25 mg PO DAILY 30 days mirtazapine 15 mg PO BEDTIME 3 months [power wheelchair As directed] tamsulosin 0.4 mg PO DAILY 3 months warfarin 5 mg See Protocol PO DAILY 30 days warfarin See Protocol 2.5 mg orally 2.5mg x 3 days/ 5mg x 4 days; or as directed Nursing Note INR received from [facility] nurse LORENA, INR today is 2.5, T/c to nurse WITH PT Patient status: marielle states pt is well, vital signs stable, no changes in health or meds, no bleeding or bruising Denies any signs and symptoms of any unusual bruising, bleeding or clotting Medication or supplements: same Diet: good, enc to eat a mix of fruits and vegetables Activity: as tolerated and encouraged Dose : keep same dose 5mg mwf/ 2.5mg x 4 days Dosing and diet instructions given with next retest date of 2 weeks, 07/12/23 Nurse and patient verbalizes understanding of instructions given with accurate read back Anti-Coag Initial Assessment Social Hx Patient Tobacco Use Status: Never used Tobacco alcohol intake: never Coding Level of Care Code Est Patient Level 1 Diagnoses Current use of anticoagulant therapy Z79.01 Results AMB INR Fingerstick AMB INR Fingerstick 2.5 Last Edit by Chhaya Patterson RN on 06/28/23 11:43 [facility] Assessment & Plan Assessment & Plan (1) Current use of anticoagulant therapy: Code(s): Z79.01 - FDC (current) use of anticoagulants Category: Medical
== END 2023-06-28 11:50 | disposition home or self-care (01) ==
LOC: HO.ACS 11:39
PROVIDERS: PCP Internal Medicine; Visit Provider Internal Medicine
DX: Z79.01 Long term (current) use of anticoagulants (principal)

== ENCOUNTER → 2023-06-28 11:38 | Outpatient (BNVA) | payer OTHER, SELFPAY | PROVIDERS: PCP Internal Medicine; Visit Provider Internal Medicine | DX: I48.0 Paroxysmal atrial fibrillation (principal); Z86.73 Personal history of transient ischemic attack (TIA), and cerebral infarction without residual deficits; Z79.01 Long term (current) use of anticoagulants; Z51.81 Encounter for therapeutic drug level monitoring | CPT/HCPCS: 99211 ==

== ENCOUNTER → 2023-07-10 13:39 | Outpatient (BNVA) | payer OTHER, SELFPAY | PROVIDERS: PCP Internal Medicine; Visit Provider Internal Medicine ==

== ENCOUNTER → 2023-07-26 13:25 | Outpatient (BNVA) | payer OTHER, SELFPAY | PROVIDERS: PCP Internal Medicine; Visit Provider Internal Medicine ==

== ENCOUNTER → 2023-08-09 12:15 | Outpatient (BNVA) | payer OTHER, SELFPAY | PROVIDERS: PCP Internal Medicine; Visit Provider Internal Medicine ==

== ENCOUNTER 2023-08-22 10:14 | Outpatient (REF) | payer OTHER, SELFPAY ==
[2023-08-22 10:28] LABS: MANUAL DIFF FLAG NO
[2023-08-22 11:07] LABS: Basophils Absolute Auto 0.1 X10*3/uL (0.0-0.2); Basophils Percent Auto 0.7 % (0-2); Eosinophils Absolute Auto 0.4 X10*3/uL (0.0-0.4); Eosinophils Percent Auto 5.8 % (0-4); Hematocrit 39.7 % (42.0-52.0); Hemoglobin 13.1 g/dl (14.0-18.0); Imm Gran Abs Auto 0.02 X10*3/uL (0.00-0.03); Imm Gran Pct Auto 0.3 % (0.0-0.4); Lymphocytes Absolute Auto 1.7 X10*3/uL (1.2-4.9); Lymphocytes Percent Auto 22.2 % (20-40); Mean Corpuscular Hemoglobin 27.5 pg (27.0-33.0); Mean Corpuscular Volume 83.2 fL (80.0-98.0); Mean Platelet Volume 11.5 fL (9.4-12.4); Monocytes Absolute Auto 0.4 X10*3/uL (0.1-1.2); Monocytes Percent Auto 5.7 % (2-11); Neutrophils Absolute Auto 4.9 x10*3/uL (2.0-8.3); Neutrophils Percent Auto 65.3 % (45-73); Platelet Count 220 X10*3/uL (160-400); Red Blood Count 4.77 X10*6/uL (4.60-5.80); Red Cell Distribution Width 14.5 % (11.0-16.0); White Blood Count 7.4 X10*3/uL (4.8-10.8)
[2023-08-22 11:54] LABS: Alanine Aminotransferase 8 U/L (0-40); Albumin Level 3.9 g/dL (3.5-5.0); Alkaline Phosphatase 161 U/L (39-117); Anion Gap 15 (12-20); Aspartate Amino Transferase 12 U/L (5-37); Bilirubin Total 0.5 mg/dL (0.0-1.0); Blood Urea Nitrogen 30 mg/dL (9-16); Calcium 9.3 mg/dL (8.4-10.2); Carbon Dioxide 25 mmol/L (22-29); Chloride 106 mmol/L (96-108); Cholesterol 108 mg/dL (<200); Estimated Glomerular Filt Rate 38; Glucose Fasting 102 mg/dL (60-99); HDL Cholesterol 39 mg/dL (>40); Iron 49 mcg/dL (45-160); LDL Cholesterol Calculated 55 mg/dL (<100); Percent Iron Saturation 26 % (15-50); Potassium 5.1 mmol/L (3.3-5.1); Sodium 141 mmol/L (135-145); Total Iron Binding Capacity 190 mcg/dL (228-428); Total Protein 7.1 g/dL (6.5-8.0); Triglycerides 74 mg/dL (<150); Unsaturated Iron Binding 141 ug/dL; Uric Acid 4.7 mg/dL (3.4-7.0)
[2023-08-22 12:09] LABS: Vitamin D 25-OH Total 45.6 ng/mL (>30)
[2023-08-25 11:44] LABS: NT-proBNP 2391 pg/mL (<450)
== END 2023-08-22 10:15 | disposition home or self-care (01) ==
LOC: HO.LAB 10:14
PROVIDERS: PCP Internal Medicine; Visit Provider Internal Medicine
DX: M10.9 Gout, unspecified (principal); D64.9 Anemia, unspecified; E55.9 Vitamin D deficiency, unspecified; I50.9 Heart failure, unspecified; E78.5 Hyperlipidemia, unspecified
CPT/HCPCS: 36415; 80053; 80061; 82306; 83540; 83880; 84550; 85025

== ENCOUNTER → 2023-08-23 11:57 | Outpatient (BNVA) | payer OTHER, SELFPAY | PROVIDERS: PCP Internal Medicine; Visit Provider Internal Medicine ==

== ENCOUNTER → 2023-08-30 14:29 | Outpatient (BNVA) | payer OTHER, SELFPAY | PROVIDERS: PCP Internal Medicine; Visit Provider Internal Medicine ==

== ENCOUNTER 2023-09-04 13:21 | Outpatient (AMB) | payer OTHER, SELFPAY ==
[2023-09-04 13:23] VITALS: BP 102/70; BMI 29.9
--- NOTE | 2023-09-04 13:23 | MHC.PC.OV ---
Vital Signs 09/04/23 13:23 Height 6 ft 2 in Weight 232 lb 12.93 oz BMI 29.9 BP 102/70 Blood Pressure Location Lt brachial Position Sitting Intake Visit Reasons: 4 month f/u Intake Note: Patient here for a 4 month follow up Rn Clinical Documentation Specialist Required: No Accompanied by: ASSOCIATE PROFESSOR OF ANTHROPOLOGY Allergies No Known Allergies Allergy (Verified 09/04/23 13:41) Medication List - Last Reconciled 09/04/23 by Poonam Mejia MD [adult diapers pull-ups As directed] allopurinol 100 mg PO DAILY aspirin 81 mg PO DAILY 3 months atorvastatin 40 mg PO BEDTIME 90 days blood sugar diagnostic ([employer] Ultra Test strips) test once per day blood-glucose meter ([employer] Ultra2 Meter) test once per day empagliflozin (Jardiance) 10 mg PO DAILY 90 days famotidine 20 mg PO DAILY PRN 30 days ferrous sulfate 325 mg PO DAILY 60 days fluoxetine 20 mg PO QAM 90 days hydrocortisone (Cortef) 10 mg (2 x 5 mg) PO DAILY lancets ([employer] Delica Safety Lancet) test once per day levetiracetam 750 mg PO BID 3 months magnesium oxide 500 mg (2 x 250 mg magnesium) PO TID 30 days metformin 500 mg PO DAILY 90 days metoprolol succinate ER 12.5 mg (1/2 x 25 mg) PO DAILY mirabegron ER (Myrbetriq) 25 mg PO DAILY 30 days mirtazapine 15 mg PO BEDTIME 3 months [power wheelchair As directed] tamsulosin 0.4 mg PO DAILY 3 months warfarin See Protocol 2.5 mg orally 2.5mg x 4 days/ 5mg x 3 days; or as directed warfarin 5 mg See Protocol PO DAILY 30 days Tobacco use date assessed: 05/09/23 Fall risk assessment: 1 Fall in past year Last assessed Fall Risk: 09/04/23 Dental Screening Dental Screen Date: 05/09/23 HPI HPI Comments History of Present Illness Details This is a 78-year-old male with diabetes mellitus type 2, atrial fibrillation, history of stroke in 2011, seizures, dyslipidemia, congestive heart failure and mild major depression that comes accompanied by ASSOCIATE PROFESSOR OF ANTHROPOLOGY for follow-up on his conditions. A1c within goal. On chronic anticoagulation for atrial fibrillation and denies any active bleeding. Stroke in 2011 and is able to walk only a few steps. Today he has in a wheelchair. On Keppra for seizures and has not had a seizure in few months. On statins for his dyslipidemia and LDL is within goal. Last echocardiogram was December 2022 and has an elevated NT pro BNP. Denies any chest pain, shortness on breath or leg swelling. Has not gain 5 lb in a week. Depression well controlled with SSRIs. I will refer him to Cardiology for his congestive heart failure and atrial fibrillation. [facility] Medical History CKD (chronic kidney disease) Physical exam Iron deficiency anemia Psoriasis Stroke Seizures Dyslipidemia BPH (benign prostatic hyperplasia) Hypovitaminosis D Gout Abnormal laboratory test Hypertension Diabetes Surgical History History of open reduction and internal fixation (ORIF) procedure History of kidney stones Family History Mother Heart problem Father Bone cancer Social History Housing: Apartment Unable to assess alcohol history related to: Unknown Alcohol intake: never Patient Tobacco Use Status: Never used Tobacco e-Cigarette/Vaping Use: Never Used Second Hand Smoke Exposure: No Advance Directives Date on File: 10/17/22 service: No Current occupational status: disabled Cognitive needs: Yes (wheelchair) Hearing needs: No Vision needs: No Questionnaire Thrive Questionnaire Date Thrive assessed: 05/09/23 KERRY-7 AMB Questionnaire KERRY-7 Date KERRY - 7 assessed: 05/09/23 Source: Developed by Drs. Lalito Robbins, Laura Cedeno, Quang Alexander and colleagues, with an educational tanya from [employer]. Review of Systems Const All systems reviewed & are unremarkable except as noted in HPI and below Eyes Reports no additional complaints, Denies change in vision and Denies other visual disturbances Card Denies chest pain at rest, Denies chest pain with activity, Denies edema, Denies irregular heart rhythm, Denies claudication, Denies dyspnea, Denies dyspnea on exertion, Denies orthopnea, Denies paroxysmal nocturnal dyspnea and Denies slow heart rate Resp Denies cough, Denies dyspnea and Denies dyspnea on exertion GI Denies abdominal pain, Denies change in bowel habits, Denies excessive flatus, Denies nausea and Denies vomiting Denies urinary hesitancy, Denies urinary incontinence and Denies urinary urgency Physical exam (Primary Care) Vital Signs: Last Vital Signs BP 102/70 09/04/23 13:23 BMI result Body Mass Index 29.9 Tobacco/Smoking Status: Tobacco use Status Tobacco use date assessed 05/09/23 09/04/23 13:29 Patient Tobacco Use Status Never used Tobacco 09/04/23 13:29 e-Cigarette/Vaping Use Never Used 09/04/23 13:29 Thrive Assessment: Date of Thrive Assessment Date Thrive assessed 05/09/23 09/04/23 13:29 Const Limitations: wheelchair Resp Effort & Inspection: normal respiratory effort Auscultation: clear to auscultation bilaterally Cardio Jugular venous distension: no JVD Rhythm: abnormal rhythm irregularly irregular Results AMB Hemoglobin A1c AMB Hemoglobin A1c 6.9 % Last Edit by TAWANA Rainey on 09/04/23 13:39 Results Reviewed Results Reviewed: Laboratory Last Values Hgb A1c (Clinic) 6.9 % (4.0-6.0) H 09/04/23 13:39 Assessment and Plan Assessment & Plan (1) Atrial fibrillation: Code(s): I48.91 - Unspecified atrial fibrillation Qualifiers: Atrial fibrillation type: longstanding persistent Qualified Code(s): I48.11 - Longstanding persistent atrial fibrillation Plan: Continue warfarin. The goal is heart rate control. Referred to Cardiology. (2) CHF (congestive heart failure): Code(s): I50.9 - Heart failure, unspecified Plan: Referred to cardiology. The goal is to not gain 5 lb in a week. (3) Mild major depression: Code(s): F32.0 - Major depressive disorder, single episode, mild Plan: Continue fluoxetine. (4) Seizures: Code(s): R56.9 - Unspecified convulsions Plan: Continue Keppra. Follow-up with Neurology. (5) Stroke: Comment: 2011 Code(s): I63.9 - Cerebral infarction, unspecified Plan: Continue aspirin for secondary prophylaxis. (6) Diabetes: Code(s): E11.9 - Type 2 diabetes mellitus without complications Qualifiers: Diabetes mellitus type: type 2 Diabetes mellitus buttermaker insulin use: unspecified senior living insulin use status Diabetes mellitus complication status: with other specified complication Qualified Code(s): E11.69 - Type 2 diabetes mellitus with other specified complication Plan: Continue metformin. A1c goal is equal or less than 7%. (7) Dyslipidemia: Code(s): E78.5 - Hyperlipidemia, unspecified Plan: Continue statins. LDL goal is less than 70. Orders: Orders IRON PROFILE 4 Months D64.9 - Anemia, unspecified Comprehensive [place]. Panel Fast 4 Months I50.9 - Heart failure, unspecified NT-proBNP 4 Months I50.9 - Heart failure, unspecified AMB Hemoglobin A1c Today E11.69 - Type 2 diabetes mellitus with other specified complication Uric Acid 4 Months M10.9 - Gout, unspecified Lipid Panel 4 Months E78.5 - Hyperlipidemia, unspecified Microalbumin, Random (w Creat) 4 Months E11.9 - Type 2 diabetes mellitus without complications Vitamin D 25-OH Total 4 Months E55.9 - Vitamin D deficiency, unspecified Complete Blood Count Auto Diff 4 Months D64.9 - Anemia, unspecified Vitamin B12 and Folate 4 Months E53.8 - Deficiency of other specified B group vitamins Referrals Cardiology Referral 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, I48.11 - Longstanding persistent atrial fibrillation, I50.9 - Heart failure, unspecified Medications: Changed From warfarin See Protocol 2.5 mg orally 2.5mg x 4 days/ 5mg x 3 days; or as directed 30 tabs 0RF I48.11 - Longstanding persistent atrial fibrillation To warfarin 2.5 mg See Protocol PO DAILY 30 days 30 tabs 6RF I48.11 - Longstanding persistent atrial fibrillation Refilled warfarin 5mg x 3, 2.5mg x 4 5 mg See Protocol PO DAILY 30 days 30 tabs 6RF Coding Level of Care Code Est Pt Level 4 (74390) Diagnoses Longstanding persistent atrial fibrillation I48.11 Atrial fibrillation type: longstanding persistent CHF (congestive heart failure) I50.9 Mild major depression F32.0 Seizures R56.9 Stroke I63.9 Type 2 diabetes mellitus with other specified complication, unspecified whether senior living insulin use E11.69 Diabetes mellitus type: type 2 Diabetes mellitus buttermaker insulin use: unspecified senior living insulin use status Diabetes mellitus complication status: with other specified complication Dyslipidemia E78.5 Time Spent (min) 25
== END 2023-09-04 13:53 | disposition home or self-care (01) ==
PROVIDERS: PCP Internal Medicine; Visit Provider Internal Medicine
DX: I48.11 Longstanding persistent atrial fibrillation (principal); I50.9 Heart failure, unspecified; E11.69 Type 2 diabetes mellitus with other specified complication; F32.0 Major depressive disorder, single episode, mild; R56.9 Unspecified convulsions; I63.9 Cerebral infarction, unspecified; E78.5 Hyperlipidemia, unspecified
CPT/HCPCS: 83036; 99214

== ENCOUNTER → 2023-09-06 13:45 | Outpatient (BNVA) | payer OTHER, SELFPAY | PROVIDERS: PCP Internal Medicine; Visit Provider Internal Medicine ==

== ENCOUNTER → 2023-09-13 10:42 | Outpatient (BNVA) | payer OTHER, SELFPAY | PROVIDERS: PCP Internal Medicine; Visit Provider Internal Medicine ==

== ENCOUNTER → 2023-09-20 13:47 | Outpatient (BNVA) | payer OTHER, SELFPAY | PROVIDERS: PCP Internal Medicine; Visit Provider Internal Medicine ==

== ENCOUNTER → 2023-09-27 13:03 | Outpatient (BNVA) | payer OTHER, SELFPAY | PROVIDERS: PCP Internal Medicine; Visit Provider Internal Medicine ==

== ENCOUNTER → 2023-10-04 13:41 | Outpatient (BNVA) | payer OTHER, SELFPAY | PROVIDERS: PCP Internal Medicine; Visit Provider Internal Medicine ==

== ENCOUNTER → 2023-10-11 13:52 | Outpatient (BNVA) | payer OTHER, SELFPAY | PROVIDERS: PCP Internal Medicine; Visit Provider Internal Medicine ==

== ENCOUNTER 2023-10-12 12:26 | Outpatient (AMB) | payer OTHER, SELFPAY ==
--- NOTE | 2023-10-12 12:56 | MHC.OFFVIS ---
Intake Visit Reasons: Overdue US follow up (03/2022) Intake Note: Patient presents for 03/2022 US follow up. Patient has discoloration on both legs. Patient states he experiences cramping and swelling in both legs. Right leg is worse. Allergies No Known Allergies Allergy (Verified 10/12/23 13:01) HPI HPI Overdue US follow up (03/2022): Details: Very pleasant 78-year-old gentleman presents for re-evaluation for venous insufficiency. He would actually seen us back in 2021 and had originally undergone right great saphenous vein radiofrequency ablation on 01/21/2019. Continues to have swelling and discomfort. He has significant superficial and deep reflux. Now presents for follow-up. Of note he has significant swelling of the lower extremities that have been a source of issues for him. ON LICENSE OF [facility] Medical History CKD (chronic kidney disease) Physical exam Iron deficiency anemia Psoriasis Stroke Seizures Dyslipidemia BPH (benign prostatic hyperplasia) Hypovitaminosis D Gout Abnormal laboratory test Hypertension Diabetes Surgical History History of open reduction and internal fixation (ORIF) procedure History of kidney stones Family History Mother Heart problem Father Bone cancer Social History Housing: Apartment Unable to assess alcohol history related to: Unknown Alcohol intake: never Patient Tobacco Use Status: Never used Tobacco e-Cigarette/Vaping Use: Never Used Second Hand Smoke Exposure: No Advance Directives Date on File: 10/17/22 service: No Current occupational status: disabled Cognitive needs: Yes (wheelchair) Hearing needs: No Vision needs: No Review of Systems Const Reports as per HPI ENT Reports no additional complaints Card Denies chest pain, Denies chest pain at rest and Denies chest pain with activity Resp Denies chest congestion and Denies cough GI Reports no additional complaints Musc Details: pain over varicosities, aching of lower extremities, swelling, cramping, heaviness and tiredness, itching Denies abnormal gait Skin/Breast Reports pruritus and Denies wounds Neuro Reports no additional complaints and Denies abnormal gait Psych Denies no additional complaints Physical Exam Const General: cooperative, healthy appearing and comfortable Orientation/consciousness: oriented to person, oriented to place and oriented to time Neck Carotids: no bruits Chest Chest palpation & inspection: normal inspection of the chest and normal palpation of entire chest wall Resp Effort & Inspection: normal respiratory effort and able to speak in complete sentences Cardio Rate: regular rate Heart sounds: S1 normal heart sound present and S2 normal heart sound present Peripheral pulses: Peripheral pulses 2+ throughout GI Inspection: Yes normal to inspection Skin Other: +2 edema, large rope-like varicosities greater than 4 mm CEAP Classification C5 - healed ulceration Ep - Etiology Primary As - superficial veins P - reflux General skin exam: dry skin Neuro General: oriented to person, oriented to place and oriented to time Extrem Right lower extremity: full ROM, normal capillary refill and edema Left lower extremity: full ROM, normal capillary refill and edema Psych Mental Status: mental status grossly normal Assessment & Plan Assessment & Plan (1) Varicose veins of right lower extremity with inflammation: Comment: 01/21/2019 - right great saphenous vein radiofrequency ablation Code(s): I83.11 - Varicose veins of right lower extremity with inflammation Category: Medical Plan: In short patient has evidence of venous disease. Unfortunately it has been so long since his previous study we will have to repeat his venous insufficiency testing. We did discuss routine conservative measures including compression elevation and exercise. Will follow up with us after testing. Thank you for allowing us to assist in his care. Orders: Orders US venous duplex LE BI 1 Week I83.11 - Varicose veins of right lower extremity with inflammation Coding Level of Care Code Est Pt Level 4 (81758) Diagnoses Varicose veins of right lower extremity with inflammation I83.11
== END 2023-10-12 13:22 | disposition home or self-care (01) ==
PROVIDERS: PCP Internal Medicine; Visit Provider Surgery Vascular Surgery
DX: I83.11 Varicose veins of right lower extremity with inflammation (principal)
CPT/HCPCS: 99213

== ENCOUNTER → 2023-10-12 12:26 | Outpatient (BNVA) | payer OTHER, SELFPAY | PROVIDERS: PCP Internal Medicine; Visit Provider Surgery Vascular Surgery | DX: I83.11 Varicose veins of right lower extremity with inflammation (principal) | CPT/HCPCS: 99212 ==

== ENCOUNTER → 2023-10-18 15:45 | Outpatient (BNVA) | payer OTHER, SELFPAY | PROVIDERS: PCP Internal Medicine; Visit Provider Internal Medicine ==

== ENCOUNTER → 2023-10-25 12:07 | Outpatient (BNVA) | payer OTHER, SELFPAY | PROVIDERS: PCP Internal Medicine; Visit Provider Internal Medicine | DX: I48.0 Paroxysmal atrial fibrillation (principal); Z86.73 Personal history of transient ischemic attack (TIA), and cerebral infarction without residual deficits; Z79.01 Long term (current) use of anticoagulants; Z51.81 Encounter for therapeutic drug level monitoring | CPT/HCPCS: 99212 ==

== ENCOUNTER 2023-10-25 13:20 | Outpatient (AMB) | payer OTHER, SELFPAY ==
--- NOTE | 2023-10-25 13:40 | MHC.OFFVIS ---
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 Name: [id number] Allergies No Known Allergies Allergy (Verified 10/25/23 12:07) Medication List - Last Reconciled 10/25/23 by Jennyfer Benoit NP [adult diapers pull-ups As directed] allopurinol 100 mg PO DAILY aspirin 81 mg PO DAILY 3 months atorvastatin 40 mg PO BEDTIME 90 days blood sugar diagnostic ([employer] Ultra Test strips) test once per day blood-glucose meter ([employer] Ultra2 Meter) test once per day empagliflozin (Jardiance) 10 mg PO DAILY 90 days famotidine 20 mg PO DAILY PRN 30 days ferrous sulfate 325 mg PO DAILY 60 days fluoxetine 20 mg PO QAM 90 days [gloves As directed] hydrocortisone (Cortef) 10 mg (2 x 5 mg) PO DAILY [incontinent wipes As directed] lancets (card[employer]io [employer] Lancet) test once per day levetiracetam 750 mg PO BID 3 months magnesium oxide 500 mg (2 x 250 mg magnesium) PO TID 30 days metformin 500 mg PO DAILY 90 days metoprolol succinate ER 12.5 mg (1/2 x 25 mg) PO DAILY mirtazapine 15 mg PO BEDTIME 3 months [power wheelchair As directed] tamsulosin 0.4 mg PO DAILY 3 months HPI Comments Details: 78-year-old male presents today for a follow-up. He has a history of atrial fibrillation, hypertension, diabetes, hyperlipidemia, and asymmertic septal hypertrophy. Reports he has been feeling well. He denies nay chest pains, shortness of breath, palpitations, swelling, or dizziness. He states his blood pressures have been as low as 102 systolic, but he feels okay. He is on warfarin with no bleeding issues. [facility] Medical History CKD (chronic kidney disease) Physical exam Iron deficiency anemia Psoriasis Stroke Seizures Dyslipidemia BPH (benign prostatic hyperplasia) Hypovitaminosis D Gout Abnormal laboratory test Hypertension Diabetes Surgical History History of open reduction and internal fixation (ORIF) procedure History of kidney stones Family History Mother Heart problem Father Bone cancer Social History Housing: Apartment Unable to assess alcohol history related to: Unknown Alcohol intake: never Patient Tobacco Use Status: Never used Tobacco e-Cigarette/Vaping Use: Never Used Second Hand Smoke Exposure: No Advance Directives Date on File: 10/17/22 service: No Current occupational status: disabled Cognitive needs: Yes (wheelchair) Hearing needs: No Vision needs: No Review of Systems Const Denies weakness ENT Denies dizziness Card Denies chest pain, Denies chest pain with activity, Denies syncope, Denies rapid heart rate, Denies pedal edema, Denies edema, Denies leg edema, Denies lightheadedness, Denies palpitations, Denies dyspnea, Denies dyspnea on exertion and Denies orthopnea Resp Denies cough, Denies dyspnea and Denies dyspnea on exertion GI Denies hematochezia and Denies change in stool character Musc Denies abnormal gait, Denies muscle cramps, Denies muscle weakness, Denies numbness, Denies radiating pain into limb and Denies tingling Neuro Denies abnormal gait, Denies dizziness, Denies syncope, Denies numbness, Denies tingling and Denies weakness Endo Denies palpitations Physical Exam Vital Signs: Last Vital Signs Pulse 70 10/25/23 13:41 BP 106/60 10/25/23 13:41 BMI result Body Mass Index 27.0 Results AMB INR Fingerstick AMB INR Fingerstick 2.9 Last Edit by Chhaya Patterson RN on 10/25/23 12:10 VNA Results Reviewed Results Reviewed: NM/NM cardiolite stress test Impression: 1. Likely normal myocardial perfusion 2. Gated LVEF is 54% 3. Transient ischemic dilatation not present Assessment & Plan Assessment & Plan (1) Atrial fibrillation: Code(s): I48.91 - Unspecified atrial fibrillation Category: Medical Qualifiers: Atrial fibrillation type: longstanding persistent Qualified Code(s): I48.11 - Longstanding persistent atrial fibrillation Plan: Has been present for at least 10 years. He is on warfarin. He reports no bleeding issues or concerns. Does not feel afib. (2) Asymmetric septal hypertrophy: Code(s): 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 Category: Medical Plan: In the recent echocardiogram, severe septal hypertrophy. No signs of fluid overload. Reviewed symptoms of fluid overload. Coding Level of Care Code Est Pt Level 3 (17617) Diagnoses Longstanding persistent atrial fibrillation I48.11 Atrial fibrillation type: longstanding persistent Asymmetric septal hypertrophy I42.2
[2023-10-25 13:41] VITALS: BP 106/60; PULSE 70; BMI 27.0
== END 2023-10-25 14:22 | disposition home or self-care (01) ==
PROVIDERS: PCP Internal Medicine; Visit Provider Nurse Practitioner
DX: I48.11 Longstanding persistent atrial fibrillation (principal); I42.2 Other hypertrophic cardiomyopathy
CPT/HCPCS: 99213

== ENCOUNTER 2023-10-27 11:45 | Outpatient (REF) | payer OTHER, SELFPAY ==
--- NOTE | ~2023-10-27 | US_ITS ---
EXAMINATION: US LOWER EXTREMITY VENOUS (REFLUX EXAM), BILATERAL CLINICAL INDICATION: Varicose veins of right lower extremity COMPARISON: None. TECHNIQUE: Color flow triplex imaging and compression Doppler was performed to evaluate both the deep and the superficial systems bilaterally. To evaluate the superficial system, the examination was performed in the upright position. Color-flow Doppler ultrasound and compression ultrasound were utilized. In addition, maneuvers were utilized to demonstrate reflux. FINDINGS: RIGHT: 1. DEEP VENOUS ULTRASOUND OF THE RIGHT LOWER EXTREMITY: Common Femoral Vein: Compressible, normal respiratory variation and augmented flow. Popliteal Vein: Compressible, normal augmentation. Deep Venous Reflux: Reflux present within the popliteal vein (1568 ms) There is no evidence of a Díaz's cyst. 2. SUPERFICIAL ULTRASOUND WITH DOPPLER OF RIGHT LOWER EXTREMITY: RIGHT GREAT SAPHENOUS VEIN: Saphenofemoral Junction: 9 mm. 670 ms reflux. Proximal Thigh: 3 mm. No reflux. Mid Thigh: Not seen Above Knee: 3 mm. No reflux. Below Knee: 3 mm. 1940 ms reflux. Mid Calf: 2 mm. 2436 ms reflux. Ankle: 2 mm. 956 ms reflux. DUPLICATED GREAT SAPHENOUS VEIN: Medially: Saphenofemoral junction: 4 mm. No reflux Mid thigh: 2 mm. No reflux RIGHT SMALL SAPHENOUS VEIN: Proximal: 2 mm. No reflux. Distal: 1 mm. No reflux. PERFORATORS: Mid calf great saphenous vein: 2 mm. No reflux LEFT: 1. DEEP VENOUS ULTRASOUND OF THE LEFT LOWER EXTREMITY: Common Femoral Vein: Compressible, normal respiratory variation and augmented flow. Popliteal Vein: Compressible, normal augmentation. Deep Venous Reflux: Reflux present within the popliteal vein (1444 ms) There is no evidence of a Díaz's cyst. 2. SUPERFICIAL ULTRASOUND WITH DOPPLER OF LEFT LOWER EXTREMITY: LEFT GREAT SAPHENOUS VEIN: Saphenofemoral Junction: 7 mm. No reflux. Proximal Thigh: 3 mm. No reflux. Mid Thigh: 2 mm. No reflux. Above Knee: 2 mm. 1816 ms reflux. Below Knee: 3 mm. 1136 ms reflux. Mid Calf: 2 mm. 1192 ms reflux. Ankle: 3 mm. 2272 reflux. DUPLICATED GREAT SAPHENOUS VEIN: Laterally: Saphenofemoral junction: 3 mm. No reflux. Mid thigh: 2 mm. No reflux LEFT SMALL SAPHENOUS VEIN: Proximal: 4 mm. No reflux. Distal: 2 mm. No reflux. Eccentric platelike calcification noted within the mid to left small saphenous vein. PERFORATORS: Mid thigh great saphenous vein: 1 mm. No reflux US/US venous duplex LE BI IMPRESSION: 1. Abnormal superficial venous reflux within bilateral great saphenous veins below the knee. 2. Abnormal deep venous reflux within bilateral popliteal veins. Abnormal lower extremity venous reflux times: Superficial and deep calf veins: >500 ms Femoropopliteal veins: >1000 ms Perforating veins: >350 ms Kim N, Chon J, Wally L, Haydee AK, Neal SS, Albin Galvez M, Bre WH. Definition of venous reflux in lower-extremity veins.J Vasc Surg. 2003; [phone].
== END 2023-10-27 11:46 | disposition home or self-care (01) ==
LOC: HO.US 11:45
PROVIDERS: PCP Internal Medicine; Visit Provider Surgery Vascular Surgery
DX: I83.11 Varicose veins of right lower extremity with inflammation (principal)
CPT/HCPCS: 93970

== ENCOUNTER → 2023-11-01 11:45 | Outpatient (BNVA) | payer OTHER, SELFPAY | PROVIDERS: PCP Internal Medicine; Visit Provider Internal Medicine ==

== ENCOUNTER → 2023-11-08 15:15 | Outpatient (BNVA) | payer OTHER, SELFPAY | PROVIDERS: PCP Internal Medicine; Visit Provider Internal Medicine ==

== ENCOUNTER 2023-11-11 10:56 | Outpatient (AMB) | payer OTHER, SELFPAY ==
--- NOTE | 2023-11-11 11:05 | AM.OFFWIN_ITS ---
Intake Vital Signs 11/11/23 11:22 BMI Reason not done Patient refused/unable BP 122/80 Blood Pressure Location Rt brachial Position Sitting Pulse 75 Pulse Source Pulse Oximeter Pulse Oximetry (%) 98 Oxygen Delivery Method Room Air Intake Visit Reasons: EP/ Blood in urine Intake Note: Patient here for blood in urine. pt states it initially started about 2 weeks ago and was sent for US of lower extremities (has not received results yet), he also mentioned that the it stopped at one point but then started to happen again. Patient Tobacco Use Status: Never used Tobacco Allergies No Known Allergies Allergy (Verified 11/11/23 11:05) Do you need a note to return to daycare/school/sports/work: No HPI HPI Comments History of Present Illness Details Pleasant 78-year-old male here today with complaints of painless hematuria. At the end of September, coincidentally after receiving a right lower extremity vascular ultrasound, he developed gross hematuria associated with clots. These symptoms have been present since this time. He denies any fever, chills, urinary complaints, abdominal pain. He is on warfarin, his INR most recently as 3.6. Denies any other overt bleeding. States he is not a current tobacco user. He feels well. Exam Awake alert oriented, no acute distress, accompanied by female Sitting in wheelchair Regular rate and rhythm No CVAT Abdomen is soft, nontender Urinalysis shows 3+ blood and 3+ glucose. He is on Jardiance which accounts for the glucose. Plan: The patient appears stable. He does need imaging to evaluate the painless hematuria. The imaging needs are greater than that of the walk-in, therefore, I advised the patient that I would reach out directly to his primary care and ask the primary care office to follow up with him on Monday. Educated that if he should have uncontrolled bleeding, or worsening of his symptoms at that time he should seek care in the emergency room. However at this time he does not need emergency room level of care, rather outpatient imaging. He is agreeable with the above. Message sent to PCP: Dash Wall in the Walk in today for painless hematuria; stable & did not require ED eval and tx, He needs imaging done - CT of abd/pelvis. Dr Kent, if you agree, please place order. I advised patient PCP office would fu w/ him on Monday. Thank you, Yuliya This note is constructed using voice recognition software. While every effort has been made to ensure accuracy in strike planning applications, still errors may have been included Sometimes, these errors may affect the content or meaning of the given sentence . [facility] Medical History CKD (chronic kidney disease) Physical exam Iron deficiency anemia Psoriasis Stroke Seizures Dyslipidemia BPH (benign prostatic hyperplasia) Hypovitaminosis D Gout Abnormal laboratory test Hypertension Diabetes Surgical History History of open reduction and internal fixation (ORIF) procedure History of kidney stones Family History Mother Heart problem Father Bone cancer Social History Housing: Apartment Unable to assess alcohol history related to: Unknown Alcohol intake: never Patient Tobacco Use Status: Never used Tobacco e-Cigarette/Vaping Use: Never Used Second Hand Smoke Exposure: No Advance Directives Date on File: 10/17/22 service: No Current occupational status: disabled Cognitive needs: Yes (wheelchair) Hearing needs: No Vision needs: No Physical Exam Vital Signs: Last Vital Signs Pulse 75 11/11/23 11:22 BP 122/80 11/11/23 11:22 Pulse Ox 98 11/11/23 11:22 Oxygen Delivery Method Room Air 11/11/23 11:22 Results AMB Urinalysis, Automated UA Leukoctes 0 Saira/uL Last Edit by DON Heard on 11/11/23 11:19 UA Nitrite Negative Last Edit by DON Heard on 11/11/23 11:19 UA Urobilinogen 0.2 mg/dL Last Edit by DON Heard on 11/11/23 11:19 UA Protein 0 mg/dL Last Edit by DON Heard on 11/11/23 11:19 UA pH 6.0 Last Edit by DON Heard on 11/11/23 11:19 UA Blood 200 Cameron/uL Last Edit by DON Heard on 11/11/23 11:19 UA Specific [place] 1.010 Last Edit by DON Heard on 11/11/23 11:19 UA Ketone Negative Last Edit by DON Heard on 11/11/23 11:19 UA Bilirubin 0 mg/dL Last Edit by DON Heard on 11/11/23 11:19 UA Glucose 1000 mg/dL Last Edit by DON Heard on 11/11/23 11:19 Results Reviewed Results Reviewed: Laboratory Last Values Urine pH (Auto) 6.0 11/11/23 11:17 Specific [place] (Auto) 1.010 11/11/23 11:17 Urine Protein (Auto) 0 mg/dL 11/11/23 11:17 Glucose (UA)(Auto) 1000 mg/dL 11/11/23 11:17 Urine Ketones (Auto) Negative 11/11/23 11:17 Urine Blood (Auto) 200 Cameron/uL 11/11/23 11:17 Urine Nitrite (Auto) Negative 11/11/23 11:17 Urine Bilirubin (Auto) 0 mg/dL 11/11/23 11:17 Urine Urobilinogen (Auto) 0.2 mg/dL 11/11/23 11:17 Leukocyte Esterase (Auto) 0 Saira/uL 11/11/23 11:17 Assessment & Plan Assessment & Plan (1) Hematuria: Code(s): R31.9 - Hematuria, unspecified Qualifiers: Hematuria type: gross Qualified Code(s): R31.0 - Gross hematuria Plan: . Plan . Orders: Orders AMB Urinalysis Automated Today Z13.9 - Encounter for screening, unspecified Coding Level of Care Code Est Pt Level 4 (87293) Diagnoses Gross hematuria R31.0 Hematuria type: gross
[2023-11-11 11:22] VITALS: BP 122/80; PULSE 75; O2SAT 98
== END 2023-11-11 11:35 | disposition home or self-care (01) ==
PROVIDERS: PCP Internal Medicine; Visit Provider Nurse Practitioner Family
DX: R31.0 Gross hematuria (principal); Z13.9 Encounter for screening, unspecified
CPT/HCPCS: 81003; 99214

== ENCOUNTER → 2023-11-15 14:19 | Outpatient (BNVA) | payer OTHER, SELFPAY | PROVIDERS: PCP Internal Medicine; Visit Provider Internal Medicine ==

== ENCOUNTER → 2023-11-22 14:17 | Outpatient (BNVA) | payer OTHER, SELFPAY | PROVIDERS: PCP Internal Medicine; Visit Provider Internal Medicine ==

== ENCOUNTER → 2023-11-30 09:17 | Outpatient (BNVA) | payer OTHER, SELFPAY | PROVIDERS: PCP Internal Medicine; Visit Provider Internal Medicine ==

== ENCOUNTER → 2023-12-06 10:36 | Outpatient (BNVA) | payer OTHER, SELFPAY | PROVIDERS: PCP Internal Medicine; Visit Provider Internal Medicine ==

== ENCOUNTER 2023-12-08 13:21 | Outpatient (REF) | payer OTHER, SELFPAY ==
--- NOTE | ~2023-12-08 | CT_ITS ---
EXAMINATION: CT ABDOMEN AND PELVIS WITHOUT CONTRAST CLINICAL INFORMATION: Hematuria. COMPARISON: CT abdomen and pelvis 02/03/2023. TECHNIQUE: Multidetector volumetric imaging was performed from the superior aspect of the liver through the pubic symphysis. Sagittal and coronal reformatted images were obtained on the technologist's workstation. This CT examination was performed using dose optimization techniques as appropriate, variously including the following: *Automated exposure control *Adjustment of mA and/or kV according to patient size (this includes techniques or standardized protocols for targeted exams where dose is matched to indication/reason for exam; i.e. extremities or head) *Use of iterative reconstruction technique DLP: 626 mGy-cm FINDINGS: LUNG BASES: There is mild cardiac enlargement and mild bronchial thickening. Bibasilar atelectasis is present. There is coronary artery calcification. LIVER, GALLBLADDER, AND BILIARY TREE: The liver is normal in size, shape, and attenuation. No focal hepatic lesion or biliary ductal dilatation is present. There is cholelithiasis without cholecystitis. PANCREAS: Unremarkable. SPLEEN: Unremarkable. ADRENAL GLANDS: Again seen is a large right adrenal mass measuring 6.5 x 5.5 x 5.5 cm. The majority of this is fat with an enhancing solid component measuring 4.4 x 3.4 x 4.7 cm. Appearances are similar to prior. The left adrenal gland is normal. KIDNEYS AND URETERS: The kidneys are normal in size, shape, and attenuation. No hydronephrosis, hydroureter, or calculi seen. No perinephric stranding. BLADDER: Unremarkable. GASTROINTESTINAL TRACT: There are 2 radiopacities seen in the stomach, likely pills. Similar opacities are seen in the cecum and rectum. The small and large bowel are unremarkable aside from scattered colonic diverticula without diverticulitis. The appendix is unremarkable. ABDOMINAL WALL: No significant hernia is appreciated. LYMPH NODES: No retroperitoneal lymphadenopathy. VASCULAR: Calcific atherosclerotic changes are present in the aorta and iliofemoral vessels. There is no evidence of an abdominal aortic aneurysm. PELVIC VISCERA: There is moderate BPH. Seminal vesicles appear normal. OSSEOUS STRUCTURES: Intramedullary jose and screw present in the right femur. Degenerative changes are present throughout the spine. No bony destructive lesions. CT/CT abdomen pelvis wo IV con IMPRESSION: 1. A cause for the patient's hematuria has not been found. 2. Incidental note made of mild cardiomegaly, coronary artery disease, stable large right adrenal myelolipoma, scattered colonic diverticula and BPH. Fleischner guidelines were followed. Electronically signed by: Antonio Henderson MD 12/22/2023 11:07 AM EDT RP
--- NOTE | ~2023-12-08 | XR_ITS ---
EXAMINATION: XR HIP, LEFT CLINICAL INFORMATION: Pain in left groin. COMPARISON: X-ray of the pelvis and left hip March 2023. TECHNIQUE: AP of the pelvis and AP and lateral views of the left hip. FINDINGS: LEFT HIP: The joint space is normal. Surrounding bone is normal. Minimal calcification proximal to the greater trochanter likely reflects a small spur or minimal heterotopic ossification or dystrophic calcification without significance. PELVIS: Left hip as above. Postoperative changes in the proximal right femur are unchanged with jose and screw fixation noted. Minimal sclerosis along the intertrochanteric region, compatible with prior fracture. Incidental note made of spondylosis of the partially visualized lumbar spine. Arterial calcification present. XR/XR hip LT w PEL1V IMPRESSION: LEFT HIP: No acute abnormality. No change. PELVIS: 1. Postoperative changes in the right femur, unchanged. 2. Spondylosis of the partially visualized lumbar spine. 3. Calcific atherosclerotic disease. Electronically signed by: Cliff Leiva MD 12/14/2023 08:34 PM EDT
== END 2023-12-08 13:22 | disposition home or self-care (01) ==
LOC: HO.CT 13:21
PROVIDERS: PCP Internal Medicine; Visit Provider Internal Medicine
DX: R31.9 Hematuria, unspecified (principal); M25.552 Pain in left hip
CPT/HCPCS: 73502; 74176

== ENCOUNTER 2023-12-12 12:25 | Outpatient (AMB) | payer OTHER, SELFPAY ==
--- NOTE | 2023-12-12 12:57 | A.OFFVIS_ITS ---
Vital Signs 12/12/23 13:00 Height 6 ft 2 in Weight 210 lb BMI 27.0 BP 108/62 Blood Pressure Location Lt brachial Position Sitting Intake Visit Reasons: follow up s/p US 10/27/23 Intake Note: Yousif is a 78 year old male who presents to the office today for a follow up s/p US 10/30/23. Pt states he has pain in both legs but states the right leg is worse. Pt states it is zonia to move his right leg. Pt also states he has discoloration in both legs. Allergies No Known Allergies Allergy (Verified 12/12/23 12:57) [facility] follow up s/p 10/27/23: Details: Very pleasant 78-year-old gentleman presents for follow-up regarding venous insufficiency. Had actually undergone right great saphenous vein ablation back in 2019. He has developed more swelling and discomfort and more so in the right calf. Now presents for follow-up with venous insufficiency testing. Of note he has been using compression with minimal relief. [facility] Medical History CKD (chronic kidney disease) Physical exam Iron deficiency anemia Psoriasis Stroke Seizures Dyslipidemia BPH (benign prostatic hyperplasia) Hypovitaminosis D Gout Abnormal laboratory test Hypertension Diabetes Surgical History History of open reduction and internal fixation (ORIF) procedure History of kidney stones Family History Mother Heart problem Father Bone cancer Social History Housing: Apartment Unable to assess alcohol history related to: Unknown Alcohol intake: never Patient Tobacco Use Status: Never used Tobacco e-Cigarette/Vaping Use: Never Used Second Hand Smoke Exposure: No Advance Directives Date on File: 10/17/22 service: No Current occupational status: disabled Cognitive needs: Yes (wheelchair) Hearing needs: No Vision needs: No Review of Systems Const Reports as per HPI ENT Reports no additional complaints Card Denies chest pain, Denies chest pain at rest and Denies chest pain with activity Resp Denies chest congestion and Denies cough GI Reports no additional complaints Musc Details: pain over varicosities, aching of lower extremities, swelling, cramping, heaviness and tiredness, itching Denies abnormal gait Skin/Breast Reports pruritus and Denies wounds Neuro Reports no additional complaints and Denies abnormal gait Psych Denies no additional complaints Physical Exam Vital Signs: Last Vital Signs BP 108/62 12/12/23 13:00 BMI result Body Mass Index 27.0 Const General: cooperative, healthy appearing and comfortable Orientation/consciousness: oriented to person, oriented to place and oriented to time Neck Carotids: no bruits Chest Chest palpation & inspection: normal inspection of the chest and normal palpation of entire chest wall Resp Effort & Inspection: normal respiratory effort and able to speak in complete sentences Cardio Rate: regular rate Heart sounds: S1 normal heart sound present and S2 normal heart sound present Peripheral pulses: Peripheral pulses 2+ throughout GI Inspection: Yes normal to inspection Skin Other: +2 edema, large rope-like varicosities greater than 4 mm CEAP Classification C4 - skin color changes Ep - Etiology Primary As - superficial veins P - reflux General skin exam: dry skin Neuro General: oriented to person, oriented to place and oriented to time Extrem Right lower extremity: full ROM, normal capillary refill and edema Left lower extremity: full ROM, normal capillary refill and edema Psych Mental Status: mental status grossly normal Results Reviewed Results Reviewed: Brief summary of venous insufficiency testing is as follows: right great saphenous vein: Positive right small saphenous vein: negative right accessory vein: none present left great saphenous vein: Positive left small saphenous vein: negative left accessory vein: none present Please note there is no evidence of any venous aneurysms or significant tortuosity Assessment & Plan Assessment & Plan (1) Varicose veins of right lower extremity with inflammation: Comment: 01/21/2019 - right great saphenous vein radiofrequency ablation Code(s): I83.11 - Varicose veins of right lower extremity with inflammation Category: Medical Plan: This patient has varicose veins with inflammation. They continue to be a source of discomfort for the patient. The patient has tried conservative treatment with compression, leg elevation and exercise program for over 3 months time. They have been compliant with all treatment. This has provided minimal relief for the patient. I do not anticipate this course of treatment will alter the underlying etiology. The patient has been scheduled for lower extremity venous treatment inclusive of --- right great saphenous vein Cyanoacralate ablation. Risks, benefits, and complications of this procedure has been discussed in detail with the patient including but not limited to bleeding, infection, and the development of a DVT. The patient has demonstrated a clear understanding and has consented. We will schedule the patient as soon as po ssible. Thank you for allowing us to participate in this patient's care. If there are any questions or concerns please do not hesitate to contact us. Coding Level of Care Code Est Pt Level 4 (39626) Diagnoses Varicose veins of right lower extremity with inflammation I83.11
[2023-12-12 13:00] VITALS: BP 108/62; BMI 27.0
== END 2023-12-12 13:25 | disposition home or self-care (01) ==
PROVIDERS: PCP Internal Medicine; Visit Provider Surgery Vascular Surgery
DX: I83.11 Varicose veins of right lower extremity with inflammation (principal)
CPT/HCPCS: 99214

== ENCOUNTER → 2023-12-12 12:25 | Outpatient (BNVA) | payer OTHER, SELFPAY | PROVIDERS: PCP Internal Medicine; Visit Provider Surgery Vascular Surgery | DX: I83.11 Varicose veins of right lower extremity with inflammation (principal) | CPT/HCPCS: 99212 ==

== ENCOUNTER → 2023-12-15 15:23 | Outpatient (BNVA) | payer OTHER, SELFPAY | PROVIDERS: PCP Internal Medicine; Visit Provider Internal Medicine ==

== ENCOUNTER → 2023-12-22 16:26 | Outpatient (BNVA) | payer OTHER, SELFPAY | PROVIDERS: PCP Internal Medicine; Visit Provider Internal Medicine ==

== ENCOUNTER 2023-12-27 13:29 | Inpatient (IN) | payer OTHER, SELFPAY ==
[2023-12-27] VITALS (7 sets, daily range): BP systolic 97–152; BP diastolic 67–89; PULSE 84–106; RESP 12–20; TEMP 36.8–37.7; O2SAT 90–98; BMI 29.6
--- NOTE | ~2023-12-27 | XR_ITS ---
EXAMINATION: XR CHEST CLINICAL INFORMATION: Cold. Cough COMPARISON: None available. TECHNIQUE: 2 views of the chest were obtained. FINDINGS: Patchy infiltrate right perihilar region and right upper lung suspicious for pneumonia. The left lung is grossly clear. There is slight elevation of the right hemidiaphragm. There is moderate cardiomegaly with normal caliber pulmonary vessels. XR/XR chest 2V IMPRESSION: Early right upper lobe infiltrate. Follow-up until complete clearing is advised. Electronically signed by: David Coleman MD 12/27/2023 04:39 PM EDT
--- NOTE | 2023-12-27 13:38 | ED.GENADULT ---
HPI - General Adult General Chief complaint: Weakness Stated complaint: WEAKNESS,COVID+ Time Seen by Provider: 12/27/23 13:37 History of Present Illness ED Provider: Zuleika CALIXTO narrative: The patient is a 78-year-old male who lives in his own apartment. 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 Apparently he has been sick for about 4 or 5 days with cough and chills. He had a home test for COVID that was positive on Monday 4 days ago. Today his family felt that he was doing poorly and called 911. Apparently the patient has been very weak. The patient himself is denying any significant problems. He says it was not his idea to call the ambulance. He says he gets around his apartment by wheelchair. He admits to feeling somewhat weaker than usual but he denies any headache, chest pain, abdominal pain, nausea, vomiting, cough, shortness of breath or other significant new symptoms. Related Data Home Medications ?Medication ?Instructions ?Recorded ?Confirmed warfarin 2.5 mg tablet 2.5 mg PO DAILY 11/01/23 12/22/23 warfarin 5 mg tablet 5 mg PO DAILY 11/01/23 12/22/23 Previous Rx's ?Medication ?Instructions ?Recorded power wheelchair #1 ea 02/27/21 blood sugar diagnostic (OneTouch #100 ea 01/11/23 Ultra Test strips) blood-glucose meter (OneTouch #1 ea 01/11/23 Ultra2 Meter) lancets 30 gauge (Onetouch Delica #100 ea 01/11/23 Safety Lancet) fluoxetine 20 mg capsule 20 mg PO QAM 90 days #90 caps 07/14/23 adult diapers pull-ups #240 ea 09/05/23 gloves #200 ea 09/05/23 incontinent wipes #200 ea 09/05/23 atorvastatin 40 mg tablet 40 mg PO BEDTIME 90 days #90 tabs 10/11/23 empagliflozin 10 mg tablet 10 mg PO DAILY 90 days #90 tabs 10/11/23 (Jardiance) metoprolol succinate 25 mg 12.5 mg (1/2 x 25 mg) PO DAILY #90 10/11/23 tablet,extended release 24 hr tabs allopurinol 100 mg tablet 100 mg PO DAILY #90 tabs 10/17/23 ferrous sulfate 325 mg (65 mg 325 mg PO DAILY 60 days #60 tabs 10/17/23 iron) tablet metformin 500 mg tablet 500 mg PO DAILY 90 days #90 tabs 11/10/23 famotidine 20 mg tablet 20 mg PO DAILY PRN heartburn 30 11/11/23 days #30 tabs mirtazapine 15 mg tablet 15 mg PO BEDTIME 3 months #90 tabs 11/11/23 hydrocortisone 5 mg tablet (Cortef) 10 mg (2 x 5 mg) PO DAILY #120 tabs 11/14/23 magnesium oxide 500 mg (2 x 250 mg magnesium) PO 12/09/23 TID 30 days #180 tabs aspirin 81 mg tablet,delayed 81 mg PO DAILY 3 months #90 tabs 12/13/23 release levetiracetam 750 mg tablet 750 mg PO BID 3 months #180 tabs 12/13/23 tamsulosin 0.4 mg capsule 0.4 mg PO DAILY 3 months #90 caps 12/13/23 nirmatrelvir 300 mg (150 mg 3 ea PO PER PKG DIR 5 days #30 ea 12/26/23 x2)-ritonavir 100 mg tablet,dose pack (Paxlovid) Allergies Allergy/AdvReac Type Severity Reaction Status Date / Time No Known Allergies Allergy Verified 12/27/23 14:26 Review of Systems Review of Systems: Yes all other systems are reviewed and are negative [facility] Past Medical History Medical History CKD (chronic kidney disease) Physical exam Iron deficiency anemia Psoriasis Stroke Seizures Dyslipidemia BPH (benign prostatic hyperplasia) Hypovitaminosis D Gout Abnormal laboratory test Hypertension Diabetes Surgical History History of open reduction and internal fixation (ORIF) procedure History of kidney stones Family History Family History Mother Heart problem Father Bone cancer Social History Social History Housing: Apartment Unable to assess alcohol history related to: Unknown Alcohol intake: never Patient Tobacco Use Status: Never used Tobacco e-Cigarette/Vaping Use: Never Used Second Hand Smoke Exposure: No Advance Directives: Yes Advance Directives on File: Yes Advance Directives Date on File: 10/17/22 service: No Current occupational status: disabled Cognitive needs: Yes (wheelchair) Hearing needs: No Vision needs: No Physical Exam ED Vital Signs: Vital Signs - 24 hr 12/27/23 13:45 12/27/23 15:05 12/27/23 17:00 Temperature 98.8 F 98.3 F 98.2 F Pulse Rate 106 H 96 84 Respiratory Rate 18 17 20 Blood Pressure 111/75 97/67 105/67 Pulse Oximetry 90 L 95 97 Oxygen Delivery Method Room Air Room Air Room Air BMI result Body Mass Index 29.6 Const Other: The patient is a very frail looking, very chronically ill-appearing 78-year-old. He does not appear in obvious acute distress however. HENMT Other: Face is symmetrical. Mucous membranes slightly dry. Eyes Other: Pupils are round equal, conjunctivae are clear, extraocular movements intact Neck Other: The neck is thick. No apparent JVD. Resp Other: No increased work of breathing at rest. Possibly some slight rhonchi. No fei wheezes Cardio Other: The patient has an irregular heart rate Rate: regular rate Rhythm: abnormal rhythm Heart sounds: S1 normal heart sound present and S2 normal heart sound present GI Other: Abdomen is soft and nontender Skin Other: Skin is dry and unremarkable Neuro Other: Patient is awake and reasonably alert. He was interviewed with a [place] legal director. He said very little. No obvious cranial nerve deficit. Moves his extremities symmetrically although he is generally weak. Extrem Other: No calf swelling or tenderness. No asymmetry. Medications Administered Generic Name Dose Route Start Last Admin Trade Name Freq PRN Reason Stop Dose Admin Azithromycin 500 mg/ Sodium 250 mls @ 125 mls/hr 12/27/23 17:34 12/27/23 18:23 Chloride IV 12/27/23 19:33 125 mls/hr ONCE ONE Administration Discontinued Medications Generic Name Dose Route Start Last Admin Trade Name Freq PRN Reason Stop Dose Admin Ceftriaxone Sodium 1 gm/ 50 mls @ 100 mls/hr 12/27/23 17:33 12/27/23 18:23 Sodium Chloride IV 12/27/23 18:02 Infused ONCE ONE Infusion Sodium Chloride 1,000 mls @ 999 mls/hr 12/27/23 17:45 12/27/23 17:50 Ns IV 12/27/23 18:45 999 mls/hr .Q1H1M AKIN Administration Medical Decision Making Medical Decision Making [facility] Narrative: The patient is a 78-year-old male on warfarin for chronic atrial fibrillation who has multiple medical problems and is generally quite frail at baseline. He has been sick with COVID for about 4 or 5 days. His family called 911 today because he was generally weak. Here he seems quite weak. He is positive for COVID. Additionally his chest x-ray shows a right-sided infiltrate. Additionally he has some worsening of his chronic renal insufficiency. I believe that his baseline creatinine is approximately 1.7. Today his creatinine is 2.3. Additionally his CRP is 23. Given the finding of a COVID infection, a radiographic finding of pneumonia in the right lung, his generalized weakness, his worsening renal function, and his significantly elevated CRP I think that hospitalization and treatment for pneumonia and hydration is appropriate. The patient's lactate is 1.6. He has afebrile in the emergency department and his vital signs are stable. I do not have a high suspicion for sepsis in this patient. His creatinine is over 2 but I think this is a mild worsening of his chronic renal insufficiency than evidence of acute organ failure. Lab Data 12/27/23 14:03 12/27/23 15:03 Labs: Lab Results 12/27/23 12/27/23 12/27/23 Range/Units 14:03 15:03 16:18 WBC 8.2 (4.8-10.8) X10*3/uL RBC 4.76 (4.60-5.80) X10*6/uL Hgb 12.7 L (14.0-18.0) g/dl Hct 38.4 L (42.0-52.0) % MCV 80.7 (80.0-98.0) fL MCH 26.7 L (27.0-33.0) pg MCHC 33.1 (31.0-36.0) g/dl RDW 15.0 (11.0-16.0) % Plt Count 160 D (160-400) X10*3/uL MPV 11.8 (9.4-12.4) fL Immature Gran % (Auto) 0.5 H (0.0-0.4) % Neut % (Auto) 83.7 H (45-73) % Lymph % (Auto) 5.5 L (20-40) % [place] % (Auto) 8.1 (2-11) % Eos % (Auto) 1.8 (0-4) % Baso % (Auto) 0.4 (0-2) % Lymph # (Auto) 0.5 L (1.2-4.9) X10*3/uL [place] # (Auto) 0.7 (0.1-1.2) X10*3/uL Eos # (Auto) 0.2 (0.0-0.4) X10*3/uL Baso # (Auto) 0.0 (0.0-0.2) X10*3/uL Abs Immat Gran (auto) 0.04 H (0.00-0.03) X10*3/uL Absolute Neuts (auto) 6.8 (2.0-8.3) x10*3/uL Absolute Nucleated RBC 0.000 (0.0-0.012) X10*3/uL Nucleated RBC % (auto) 0.0 (0.0-0.2) /100WBC PT 38.5 H (11.1-13.3) SEC INR 3.2 H (0.9-1.1) Hold Blue Top SEE NOTE Sodium 139 (135-145) mmol/L Potassium 5.1 (3.3-5.1) mmol/L Chloride 108 (96-108) mmol/L Carbon Dioxide 21 L (22-29) mmol/L Anion Gap 15 (12-20) BUN 42 H (9-16) mg/dL Creatinine 2.30 H (0.5-1.4) mg/dL Estim Creat Clear Calc 34.6 Estimated GFR 28 Random Glucose 172 H (60-115) mg/dL Lactic Acid 1.6 (0.5-2.0) mmol/L Calcium 9.0 (8.4-10.2) mg/dL Total Bilirubin 0.7 (0.0-1.0) mg/dL Direct Bilirubin 0.4 (0.0-0.5) mg/dL AST 25 (5-37) U/L ALT 14 (0-40) U/L Alkaline Phosphatase 130 H (39-117) U/L C-Reactive Protein 23.67 H (< or = 0.50) mg/dL Total Protein 6.6 (6.5-8.0) g/dL Albumin 3.4 L (3.5-5.0) g/dL Procalcitonin 1.44 ng/mL Urine Color Yellow Urine Appearance Clear Urine pH 5.0 (5.0-9.0) Ur Specific [place] 1.020 (1.005-1.025) Urine Protein Trace (Neg-Trace) mg/dL Urine Glucose (UA) >=1000 H (Negative) mg/dL Urine Ketones Trace (Negative) mg/dL Urine Blood Negative (Negative) Urine Nitrite Negative (Negative) Ur Leukocyte Esterase Negative (Negative) Urine RBC 0-2 (0-2) /HPF Urine WBC 0-5 (0-5) /HPF Ur Squamous Epith Cells 0-2 (0-2) /HPF Urine Bacteria None Seen (None Seen) Hyaline Casts 0-2 (0-2) /LPF Ur Random Sodium 42.0 mmol/L Urine Creatinine 96.30 mg/dL Influenza Type A (PCR) NEGATIVE (Negative) Influenza Type B (PCR) NEGATIVE (Negative) RSV RNA Qual (PCR) NEGATIVE (Negative) SARS-CoV-2 RNA (RT-PCR) POSITIVE A (Negative) Critical Care Time Critical Care Time Critical Care Time: Yes Total Critical Care Time: 35 Attestation: The patient was critically ill with a high probability of imminent or life-threatening deterioration. ?I spent greater than 30 minutes of discontinuous time evaluating the patient, delivering critical care at the bedside, discussing evaluating data with consultants. ?Critical care time does not include time spent performing separately billable procedures or teaching. ?Time spent performing critical care with 35 minutes. Discharge Plan Discharge Clinical Impression: Pneumonia, COVID, Renal insufficiency Patient Disposition: Home, Self-Care
--- NOTE | 2023-12-27 14:16 | ECG_ITS ---
Test Reason : WEAKNESS Blood Pressure : / mmHG Vent. Rate : 098 BPM Atrial Rate : 000 BPM P-R Int : 000 ms QRS Dur : 078 ms QT Int : 372 ms P-R-T Axes : 000 -32 012 degrees QTc Int : 474 ms Atrial fibrillation Left axis deviation Cannot rule out Anterior infarct , age undetermined Abnormal ECG When compared with ECG of 11-FEB-2023 22:20, No significant change was found Referred By: Hernandez To Electronically Signed By:ARACELY BHAKTA
[2023-12-27 14:19] LABS: MANUAL DIFF FLAG NO
[2023-12-27 14:21] LABS: Basophils Percent Auto 0.4 % (0-2); Eosinophils Absolute Auto 0.2 X10*3/uL (0.0-0.4); Eosinophils Percent Auto 1.8 % (0-4); Hematocrit 38.4 % (42.0-52.0); Hemoglobin 12.7 g/dl (14.0-18.0); Imm Gran Abs Auto 0.04 X10*3/uL (0.00-0.03); Imm Gran Pct Auto 0.5 % (0.0-0.4); Lymphocytes Absolute Auto 0.5 X10*3/uL (1.2-4.9); Lymphocytes Percent Auto 5.5 % (20-40); Mean Corpuscular HGB Conc 33.1 g/dl (31.0-36.0); Mean Corpuscular Hemoglobin 26.7 pg (27.0-33.0); Mean Corpuscular Volume 80.7 fL (80.0-98.0); Mean Platelet Volume 11.8 fL (9.4-12.4); Monocytes Absolute Auto 0.7 X10*3/uL (0.1-1.2); Monocytes Percent Auto 8.1 % (2-11); Neutrophils Absolute Auto 6.8 x10*3/uL (2.0-8.3); Neutrophils Percent Auto 83.7 % (45-73); Platelet Count 160 X10*3/uL (160-400); Red Blood Count 4.76 X10*6/uL (4.60-5.80); White Blood Count 8.2 X10*3/uL (4.8-10.8)
[2023-12-27 14:30] LABS: Lactic Acid 1.6 mmol/L (0.5-2.0)
[2023-12-27 15:05] LABS: Influenza A PCR NEGATIVE (Negative); Influenza B PCR NEGATIVE (Negative); Resp Syncy Virus RNA Qual PCR NEGATIVE (Negative); SARS COV2 PCR INHOUSE POSITIVE (Negative)
[2023-12-27 15:22] LABS: Anion Gap 15 (12-20); Blood Urea Nitrogen 42 mg/dL (9-16); C Reactive Protein 23.67 mg/dL (< or = 0.50); Carbon Dioxide 21 mmol/L (22-29); Chloride 108 mmol/L (96-108); Creatinine Clr Calc Pharmacy 34.6; Estimated Glomerular Filt Rate 28; Glucose Random 172 mg/dL (60-115); Potassium 5.1 mmol/L (3.3-5.1); Sodium 139 mmol/L (135-145)
--- NOTE | 2023-12-27 16:23 | PC.NURSE ---
Pt incontinent of urine, linens changed and farhat care provided. Pt straight catheterized for urine sample, sent to lab.
[2023-12-27 16:24] LABS: Appearance Urine Clear; Color Urine Yellow; Glucose Urine UA >=1000 mg/dL (Negative); Leukocyte Esterase Urine Negative (Negative); Nitrite Urine Negative (Negative); UMIC TRIGGER UACC YES; Urine Blood Negative (Negative); Urine Ketones Trace mg/dL (Negative); Urine Protein Trace mg/dL (Neg-Trace)
[2023-12-27 16:30] LABS: Bacteria Urine None Seen (None Seen); Hyaline Casts Urine 0-2 /LPF (0-2); RBC Urine 0-2 /HPF (0-2); Squamous Epithelial Cell Urine 0-2 /HPF (0-2); WBC Urine 0-5 /HPF (0-5)
[2023-12-27 17:27] LABS: INTERNATIONAL NORM RATIO 3.2 (0.9-1.1); Prothrombin Time 38.5 SEC (11.1-13.3)
[2023-12-27] MEDS: 0.9 % Sodium Chloride 1,000 ML 999 ML IV (17:50)
[2023-12-27] MEDS: cefTRIAXone sodium 1 GM in 0.9 % Sodium Chloride 50 ML IV (17:51)
[2023-12-27 18:05] LABS: Alanine Aminotransferase 14 U/L (0-40); Albumin Level 3.4 g/dL (3.5-5.0); Alkaline Phosphatase 130 U/L (39-117); Aspartate Amino Transferase 25 U/L (5-37); Bilirubin Direct 0.4 mg/dL (0.0-0.5); Bilirubin Total 0.7 mg/dL (0.0-1.0); Total Protein 6.6 g/dL (6.5-8.0)
[2023-12-27] MEDS: Azithromycin 500 MG in 0.9 % Sodium Chloride 250 ML 125 MG IV (18:23)
[2023-12-27 18:25] LABS: Procalcitonin 1.44 ng/mL
--- NOTE | 2023-12-27 18:40 | P.HPHOSP_ITS ---
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 He developed cough, dyspnea, malaise, and chills 5 days ago. No actual fever. He had a positive home test for Covid-19 on 12/23/23. His PROPOSAL MANAGER WRITER called an ambulance today because he was very weak and continues to cough with sputum. He was unable to get out of bed for the past 2 days. He was found to have an early RUL infiltrate. Not septic and not hypoxic. CRP high at 23 and PCT 1.44. Creatinine worse than baseline of 1.7 at 2.3. Review of Systems 2 Review of Systems: Yes all other systems are reviewed and are negative [facility] Medical History CKD (chronic kidney disease) Physical exam Iron deficiency anemia Psoriasis Stroke Seizures Dyslipidemia BPH (benign prostatic hyperplasia) Hypovitaminosis D Gout Abnormal laboratory test Hypertension Diabetes Family History Mother Heart problem Father Bone cancer Surgical History History of open reduction and internal fixation (ORIF) procedure History of kidney stones Social History Housing: Apartment Unable to assess alcohol history related to: Unknown Alcohol intake: never Patient Tobacco Use Status: Never used Tobacco e-Cigarette/Vaping Use: Never Used Second Hand Smoke Exposure: No Advance Directives: Yes Advance Directives on File: Yes Advance Directives Date on File: 10/17/22 service: No Current occupational status: disabled Cognitive needs: Yes (wheelchair) Hearing needs: No Vision needs: No Meds Allergies Allergy/AdvReac Type Severity Reaction Status Date / Time No Known Allergies Allergy Verified 12/27/23 14:26 Active Medications: Current Medications Doxycycline Monohydrate (Doxycycline Monohydrate 100 Mg Capsule) 100 mg PO Q12H AKIN Glucose (Glucose Gel 15 Gm Gel..Gram.) 15 gm PO Q15M PRN; Protocol PRN Reason: per Hypoglycemia Standing Ord. Azithromycin 500 mg/ Sodium (Chloride) 250 mls @ 125 mls/hr IV ONCE ONE Stop: 12/27/23 19:33 Last Admin: 12/27/23 18:23 Dose: 125 mls/hr Sodium Chloride (Ns) 1,000 mls @ 999 mls/hr IV .Q1H1M [facility] Stop: 12/27/23 18:45 Last Admin: 12/27/23 17:50 Dose: 999 mls/hr Ceftriaxone Sodium 1 gm/ (Sodium Chloride) 50 mls @ 100 mls/hr IV Q24H [facility] Remdesivir 200 mg/ Sodium (Chloride) 210 mls @ 105 mls/hr IV ONCE ONE Stop: 12/27/23 19:59 Remdesivir 100 mg/ Sodium (Chloride) 230 mls @ 115 mls/hr IV Q24H [facility] Stop: 12/31/23 21:59 Dextrose (D10) 250 mls @ 750 mls/hr IV Q15M PRN; Protocol PRN Reason: per Hypoglycemia Standing Ord. Sodium Chloride (Ns) 1,000 mls @ 100 mls/hr IVCONT .Q10H [facility] Stop: 12/28/23 08:59 Insulin Human Lispro (Insulin Lispro 100 Unit/Ml 3 Ml Vial) 0 unit SUBCUT QIDACHS [facility]; Protocol Levetiracetam (Levetiracetam 250 Mg Tablet) 750 mg PO BID [facility] Home Medications ?Medication ?Instructions ?Recorded ?Confirmed ?Last Taken ?Type warfarin 2.5 mg tablet 2.5 mg PO DAILY 11/01/23 12/22/23 Unknown History warfarin 5 mg tablet 5 mg PO DAILY 11/01/23 12/22/23 Unknown History Physical Exam 2 Vital Signs and Narrative: Vital Signs: Last Vital Signs Temp 98.2 F 12/27/23 17:00 Pulse 84 12/27/23 17:00 Resp 20 12/27/23 17:00 BP 105/67 12/27/23 17:00 Pulse Ox 97 12/27/23 17:00 O2 Del Method Room Air 12/27/23 17:00 BMI result Body Mass Index 29.6 Gen: in no acute distress but appears weak HEENT: sclera anicteric, moist mucus membranes Neck: supple Lungs: diminished Heart: irregular, no murmurs Abd: soft, non-tender, non-distended Ext: no edema Skin: warm/well-perfused Neuro: alert and oriented x3, difuse weakness, chronic RUE weakness Psych: appropriate affect Results Labs 12/27/23 14:03 12/27/23 15:03 Labs: Laboratory Results - last 24 hr 12/27/23 12/27/23 12/27/23 14:03 15:03 16:18 MCV 80.7 MCH 26.7 L MCHC 33.1 RDW 15.0 Plt Count 160 D MPV 11.8 Immature Gran % (Auto) 0.5 H Neut % (Auto) 83.7 H Lymph % (Auto) 5.5 L [place] % (Auto) 8.1 Eos % (Auto) 1.8 Baso % (Auto) 0.4 Lymph # (Auto) 0.5 L [place] # (Auto) 0.7 Eos # (Auto) 0.2 Baso # (Auto) 0.0 Abs Immat Gran (auto) 0.04 H Absolute Neuts (auto) 6.8 Absolute Nucleated RBC 0.000 Nucleated RBC % (auto) 0.0 PT 38.5 H INR 3.2 H Hold Blue Top SEE NOTE Anion Gap 15 Estim Creat Clear Calc 34.6 Estimated GFR 28 Random Glucose 172 H Lactic Acid 1.6 Calcium 9.0 Total Bilirubin 0.7 Direct Bilirubin 0.4 AST 25 ALT 14 Alkaline Phosphatase 130 H C-Reactive Protein 23.67 H Total Protein 6.6 Albumin 3.4 L Procalcitonin 1.44 Urine Color Yellow Urine Appearance Clear Urine pH 5.0 Ur Specific [place] 1.020 Urine Protein Trace Urine Glucose (UA) >=1000 H Urine Ketones Trace Urine Blood Negative Urine Nitrite Negative Ur Leukocyte Esterase Negative Urine RBC 0-2 Urine WBC 0-5 Ur Squamous Epith Cells 0-2 Urine Bacteria None Seen Hyaline Casts 0-2 Ur Random Sodium 42.0 Urine Creatinine 96.30 Influenza Type A (PCR) NEGATIVE Influenza Type B (PCR) NEGATIVE RSV RNA Qual (PCR) NEGATIVE SARS-CoV-2 RNA (RT-PCR) POSITIVE A Imaging Radiologist's Impressions: Impressions Chest X-Ray 12/27/23 14:35 IMPRESSION: Early right upper lobe infiltrate. Follow-up until complete clearing is advised. Electronically signed by: David Coleman MD 12/27/2023 04:39 PM EDT Assessment and Plan (1) COVID: Status: Acute (2) Pneumonia: Status: Acute Plan 78yo M with chronic AF anticoagulated on warfarin, hx CVA, CKD3, seizure disorder, DM2, HTN, and gout presenting with cough, dyspnea, chills, and malaise; tested positive for Covid-19 4 days ago and now found to have a RUL infiltrate. Covid-19 pneumonia with bacterial pneumonia superinfection - PSI 114 points, Risk Class IV, 8.2-9.3% mortality - admit to isolation/telemetry, give remdesivir IV x5d, start antibiotic treatment with ceftriaxone + doxycycline, trend PCT/CRP, send BCx + urinary antigens for Legionella and pneumococcus, monitor for hypoxia ?adrenal insufficiency - cannot find documentation in records of diagnosis but pt is on hydrocortisone 10 mg daily; if BP low, will need stress-dose steroids JOYCE/CKD3 - FENa 0.7%, likely prerenal - will give IV NS hydration and recheck BMP in AM; avoid nephrotoxins chronic AF - continue warfarin once INR =<3 - continue metoprolol succinate seizure disorder - levetiracetam hx CVA - ASA, atorvastatin BPH - tamsuolsin gout - allopurinol mood disorder - mirtazapine, fluoxetine DM2 - hold MTF, give pj-dose lispro VTE ppx - warfarin dispo - TBD code status - full I anticipate that the patient will stay at least 2 midnights as an inpatient in the hospital due to the above reasons. It is neither reasonable nor safe to care for them in a less acute setting. Quality Stroke Does the patient have a stroke diagnosis?: No VTE Prior VTE?: No VTE Risk Level:: Medical - moderate - high VTE Device Contraindication: N/A - Device Ordered VTE Drug Contraindication: N/A - Med Ordered
--- NOTE | 2023-12-27 19:15 | PC.NURSE ---
Assumed care of pt.
[2023-12-27] MEDS: 0.9 % Sodium Chloride 1,000 ML 100 ML IVCONT (19:33)
--- NOTE | 2023-12-27 19:40 | PHA.MEDREC ---
Addendum entered by Rebekah Salazar RPh 12/27/23 20:12: Med rec was reviewed by [facility]. Per anticoag clinic note, he takes warfarin 5 mg on monday and monday and 2.5 mg the rest of the week. Original Note: Pharmacy Consult ? Medication Reconciliation Pharmacy has completed the medication reconciliation. Spoke to patient through conductor/engineer service (Li) to confirm med list. Patient had a med box list of medications with him. Patient didn't remember his Warfarin dose. Per [facility] [place] [place] Anticoagulation clinic on 12/22/23 patients INR level was 3.1 and was to continue Warfarin 5 mg x2 days a week and Warfarin 2.5 mg x5 days a week.
[2023-12-27] MEDS: Remdesivir 200 MG in 0.9 % Sodium Chloride 210 ML 105 MG IV (20:38)
[2023-12-27 21:33] LABS: Glucose, Whole Blood 143 mg/dL (60-115)
[2023-12-27] MEDS: levETIRAcetam 250 MG TABLET 750 MG PO (21:37)
[2023-12-27] MEDS: Melatonin 3 MG TABLET 6 MG PO (21:37)
[2023-12-27] MEDS: Acetaminophen 325 MG TABLET 650 MG PO (21:37)
--- NOTE | 2023-12-27 22:47 | PC.NURSE ---
this RN assumed care of pt, pt brought from main ed to overflow. pt alert to self but confused at baseline. pt assisted with replacement of [place]. lights dimmed and pt appears comfortable.
[2023-12-28 02:12] VITALS: BP 144/81; PULSE 91; RESP 20; TEMP 36.2; O2SAT 95
[2023-12-28] MEDS: 0.9 % Sodium Chloride 1,000 ML 100 ML IVCONT (06:44)
[2023-12-28 06:59] LABS: Hematocrit 37.4 % (42.0-52.0); Mean Corpuscular HGB Conc 32.1 g/dl (31.0-36.0); Mean Corpuscular Hemoglobin 26.5 pg (27.0-33.0); Mean Corpuscular Volume 82.7 fL (80.0-98.0); Mean Platelet Volume 11.6 fL (9.4-12.4); Platelet Count 141 X10*3/uL (160-400); Red Blood Count 4.52 X10*6/uL (4.60-5.80); Red Cell Distribution Width 15.2 % (11.0-16.0); White Blood Count 7.3 X10*3/uL (4.8-10.8)
[2023-12-28 07:04] LABS: INTERNATIONAL NORM RATIO 3.5 (0.9-1.1); Prothrombin Time 42.3 SEC (11.1-13.3)
[2023-12-28 07:14] LABS: Glucose, Whole Blood 97 mg/dL (60-115)
[2023-12-28 07:15] LABS: Anion Gap 16 (12-20); Blood Urea Nitrogen 40 mg/dL (9-16); Calcium 8.7 mg/dL (8.4-10.2); Carbon Dioxide 19 mmol/L (22-29); Chloride 113 mmol/L (96-108); Creatinine Clr Calc Pharmacy 38.9; Estimated Glomerular Filt Rate 32; Glucose Random 109 mg/dL (60-115); Potassium 5.1 mmol/L (3.3-5.1); Sodium 143 mmol/L (135-145)
[2023-12-28 07:49] VITALS: BP 145/83; PULSE 97; RESP 20; TEMP 36.4; O2SAT 93
--- NOTE | 2023-12-28 09:13 | P.PNIM_ITS ---
Subjective Subjective Date of Service: 12/28/23 Interval History: weak, coughing with purulent sputum no fever This history was taken in Frisian from the patient. Review of Systems Review of Systems: Yes all other systems are reviewed and are negative Physical Exam 2 Vital Signs: Vital Signs: Last Vital Signs Temp 97.6 F 12/28/23 07:49 Pulse 97 12/28/23 07:49 Resp 20 12/28/23 07:49 BP 145/83 H 12/28/23 07:49 Pulse Ox 93 12/28/23 07:49 O2 Del Method Room Air 12/28/23 07:49 BMI result Body Mass Index 29.6 Gen: in no acute distress but appears weak HEENT: sclera anicteric, moist mucus membranes Neck: supple Lungs: diminished Heart: irregular, no murmurs Abd: soft, non-tender, non-distended Ext: no edema Skin: warm/well-perfused Neuro: alert and oriented x3, difuse weakness, chronic RUE weakness Psych: appropriate affect Objective Data Active Medications Acetaminophen (Acetaminophen 325 Mg Tablet) 650 mg PO Q6H PRN PRN Reason: Pain, Mild (Pain Scale 1-3), fever or headache Last Admin: 12/27/23 21:37 Dose: 650 mg Documented By: PANCHITO Allopurinol (Allopurinol 100 Mg Tablet) 100 mg PO DAILY [facility] Aspirin (Aspirin Enteric Coated 81 Mg Tablet.) 81 mg PO DAILY [facility] Atorvastatin Calcium (Atorvastatin Calcium 40 Mg Tablet) 40 mg PO BEDTIME [facility] Calcium Carbonate (Calcium Carbonate 750 Mg Tab.Chew) 750 mg PO Q4H PRN PRN Reason: Heartburn Doxycycline Monohydrate (Doxycycline Monohydrate 100 Mg Capsule) 100 mg PO Q12H [facility] Empagliflozin (Empagliflozin 10 Mg Tablet) 10 mg PO DAILY [facility] Famotidine (Famotidine 20 Mg Tablet) 20 mg PO DAILY PRN PRN Reason: heartburn Ferrous Sulfate (Ferrous Sulfate 324 Mg Tablet.) 324 mg PO DAILY [facility] Fluoxetine HCl (Fluoxetine Hcl 20 Mg Capsule) 20 mg PO DAILY [facility] Glucose (Glucose Gel 15 Gm Gel..Gram.) 15 gm PO Q15M PRN; Protocol PRN Reason: per Hypoglycemia Standing Ord. Hydrocortisone (Hydrocortisone 10 Mg Tablet) 10 mg PO DAILY [facility] Ceftriaxone Sodium 1 gm/ (Sodium Chloride) 50 mls @ 100 mls/hr IV Q24H [facility] Remdesivir 100 mg/ Sodium (Chloride) 230 mls @ 115 mls/hr IV Q24H [facility] Stop: 12/31/23 21:59 Dextrose (D10) 250 mls @ 750 mls/hr IV Q15M PRN; Protocol PRN Reason: per Hypoglycemia Standing Ord. Sodium Chloride (Ns) 1,000 mls @ 100 mls/hr IVCONT .Q10H [facility] Stop: 12/28/23 13:59 Last Admin: 12/28/23 06:44 Dose: 100 mls/hr Documented By: RYLEE Insulin Human Lispro (Insulin Lispro 100 Unit/Ml 3 Ml Vial) 0 unit SUBCUT QIDACHS [facility]; Protocol Last Admin: 12/28/23 07:31 Dose: Not Given Documented By: REBEKA Non-Admin Reason: No Insulin Coverage Levetiracetam (Levetiracetam 250 Mg Tablet) 750 mg PO BID [facility] Last Admin: 12/27/23 21:37 Dose: 750 mg Documented By: PANCHITO Magnesium Hydroxide (Milk Of Magnesia 30 Ml Oral.Susp) 30 ml PO DAILY PRN PRN Reason: Constipation Magnesium Oxide (Magnesium Oxide 400 Mg Tablet) 200 mg PO TID [facility] Melatonin (Melatonin 3 Mg Tablet) 6 mg PO BEDTIME PRN PRN Reason: Insomnia Last Admin: 12/27/23 21:37 Dose: 6 mg Documented By: PANCHITO Metoprolol Succinate (Metoprolol Succinate Er 12.5 Mg Halftab.Er.24h) 12.5 mg PO DAILY [facility]; Protocol Mirtazapine (Mirtazapine 15 Mg Tablet) 15 mg PO BEDTIME [facility] Ondansetron HCl (Ondansetron Hcl 4 Mg/2 Ml Vial) 4 mg IVPUSH Q8H PRN PRN Reason: Nausea and Vomiting Sodium Chloride (0.9 % Sodium Chloride Flush 3 Ml Syringe) 3 ml IVFLUSH QSHIFT [facility] Last Admin: 12/28/23 00:49 Dose: Not Given Documented By: RANDY Non-Admin Reason: IV Running Tamsulosin HCl (Tamsulosin Hcl 0.4 Mg Capsule) 0.4 mg PO DAILY [facility] Labs 12/28/23 06:30 12/28/23 06:30 Labs: Laboratory Results - last 24 hr 12/27/23 12/27/2312/26/24 14:03 15:03 16:18 MCV 80.7 MCH 26.7 L MCHC 33.1 RDW 15.0 Plt Count 160 D MPV 11.8 Immature Gran % (Auto) 0.5 H Neut % (Auto) 83.7 H Lymph % (Auto) 5.5 L [place] % (Auto) 8.1 Eos % (Auto) 1.8 Baso % (Auto) 0.4 Lymph # (Auto) 0.5 L [place] # (Auto) 0.7 Eos # (Auto) 0.2 Baso # (Auto) 0.0 Abs Immat Gran (auto) 0.04 H Absolute Neuts (auto) 6.8 Absolute Nucleated RBC 0.000 Nucleated RBC % (auto) 0.0 PT 38.5 H INR 3.2 H Hold Blue Top SEE NOTE Anion Gap 15 Estim Creat Clear Calc 34.6 Estimated GFR 28 POC Glucose Random Glucose 172 H Lactic Acid 1.6 Calcium 9.0 Total Bilirubin 0.7 Direct Bilirubin 0.4 AST 25 ALT 14 Alkaline Phosphatase 130 H C-Reactive Protein 23.67 H Total Protein 6.6 Albumin 3.4 L Procalcitonin 1.44 Urine Color Yellow Urine Appearance Clear Urine pH 5.0 Ur Specific [place] 1.020 Urine Protein Trace Urine Glucose (UA) >=1000 H Urine Ketones Trace Urine Blood Negative Urine Nitrite Negative Ur Leukocyte Esterase Negative Urine RBC 0-2 Urine WBC 0-5 Ur Squamous Epith Cells 0-2 Urine Bacteria None Seen Hyaline Casts 0-2 Ur Random Sodium 42.0 Urine Creatinine 96.30 Influenza Type A (PCR) NEGATIVE Influenza Type B (PCR) NEGATIVE RSV RNA Qual (PCR) NEGATIVE SARS-CoV-2 RNA (RT-PCR) POSITIVE A 12/27/23 12/28/23 12/28/23 21:26 06:30 07:09 MCV 82.7 MCH 26.5 L MCHC 32.1 RDW 15.2 Plt Count 141 L MPV 11.6 Immature Gran % (Auto) Neut % (Auto) Lymph % (Auto) [place] % (Auto) Eos % (Auto) Baso % (Auto) Lymph # (Auto) [place] # (Auto) Eos # (Auto) Baso # (Auto) Abs Immat Gran (auto) Absolute Neuts (auto) Absolute Nucleated RBC 0.000 Nucleated RBC % (auto) 0.0 PT 42.3 H INR 3.5 H Hold Blue Top Anion Gap 16 Estim Creat Clear Calc 38.9 Estimated GFR 32 POC Glucose 143 H 97 Random Glucose 109 Lactic Acid Calcium 8.7 Total Bilirubin Direct Bilirubin AST ALT Alkaline Phosphatase C-Reactive Protein Total Protein Albumin Procalcitonin Urine Color Urine Appearance Urine pH Ur Specific [place] Urine Protein Urine Glucose (UA) Urine Ketones Urine Blood Urine Nitrite Ur Leukocyte Esterase Urine RBC Urine WBC Ur Squamous Epith Cells Urine Bacteria Hyaline Casts Ur Random Sodium Urine Creatinine Influenza Type A (PCR) Influenza Type B (PCR) RSV RNA Qual (PCR) SARS-CoV-2 RNA (RT-PCR) Assessment and Plan (1) Renal insufficiency: Status: Acute (2) Pneumonia: Status: Acute Plan d2 78yo M with chronic AF anticoagulated on warfarin, hx CVA, CKD3, seizure disorder, DM2, HTN, and gout presenting with cough, dyspnea, chills, and malaise; tested positive for Covid-19 4 prior to admission and found to have a RUL infiltrate with evidence of bacterial pneumonia Covid-19 pneumonia with bacterial pneumonia superinfection - PSI 114 points, Risk Class IV, 8.2-9.3% mortality - 12/26-12/30 remdesivir IV x5d, 12/26- ceftriaxone + doxycycline, trend PCT/CRP, BCx + urinary antigens for Legionella and pneumococcus pending, monitor for hypoxia ?adrenal insufficiency - cannot find documentation in records of diagnosis but pt is on hydrocortisone 10 mg daily which we will continue; if BP low, will need stress-dose steroids JOYCE/CKD3 - FENa 0.7%, likely prerenal - continue IV NS hydration and recheck BMP in AM; avoid nephrotoxins - SCr improved today chronic AF - resume warfarin once INR =<3 - continue metoprolol succinate seizure disorder - levetiracetam hx CVA - ASA, atorvastatin BPH - tamsuolsin gout - allopurinol mood disorder - mirtazapine, fluoxetine DM2 - hold MTF, give pj-dose lispro VTE ppx - warfarin dispo - PT eval pending In my clinical judgment, the patient requires continued inpatient hospitalization for the following reasons: IV ABX, PSI class IV, IV fluids Total time managing care of this patient today: 45 minutes. Quality Stroke Does the patient have a stroke diagnosis?: No VTE Prior VTE?: No VTE Risk Level:: Medical - moderate - high VTE Device Contraindication: N/A - Device Ordered VTE Drug Contraindication: N/A - Med Ordered
[2023-12-28] MEDS: allopurinoL 100 MG TABLET PO (10:18)
[2023-12-28] MEDS: Tamsulosin HCL 0.4 MG CAPSULE PO (10:18)
[2023-12-28] MEDS: levETIRAcetam 250 MG TABLET 750 MG PO ×2 (10:18→21:33)
[2023-12-28] MEDS: Metoprolol Succinate ER 12.5 MG HALFTAB.ER.24H PO (10:18)
[2023-12-28] MEDS: Doxycycline Monohydrate 100 MG CAPSULE PO ×2 (10:18→21:33)
[2023-12-28] MEDS: Ferrous Sulfate 324 MG TABLET.DR PO (10:19)
[2023-12-28] MEDS: Aspirin Enteric Coated 81 MG TABLET.DR PO (10:19)
[2023-12-28] MEDS: Magnesium Oxide 400 MG TABLET 200 MG PO ×3 (10:19→21:33)
[2023-12-28] MEDS: Hydrocortisone 10 MG TABLET PO (10:19)
[2023-12-28] MEDS: FLUoxetine HCl 20 MG CAPSULE PO (10:20)
[2023-12-28] MEDS: Empagliflozin 10 MG TABLET PO (10:20)
--- NOTE | 2023-12-28 11:04 | MHC.CM.PN ---
IMM 12/28/23, Pt lives alone, has 4 hours [employer] per day, and he has a nurse that visits 3 days a week, unsure which VNA. For DME he has walker, w/c, shower chair. HCP is on file and confirmed: Tammie. He does not have transportation home at [place]. He has been at [facility] for STR in the past and said it was fine. DCP: home with services or STR. CM to follow and assist with DC plan.
[2023-12-28 11:22] LABS: Glucose, Whole Blood 159 mg/dL (60-115)
[2023-12-28] MEDS: Insulin Lispro 100 UNIT/ML 3 ML VIAL SUBCUT (11:49)
[2023-12-28 15:29] VITALS: BP 123/76; PULSE 95; RESP 20; TEMP 36.1; O2SAT 95
[2023-12-28 16:14] LABS: Glucose, Whole Blood 141 mg/dL (60-115)
--- NOTE | 2023-12-28 16:17 | HO.WOUND ---
Wound Consult: Initial 78yr old?male admitted to [facility] on 12/27/23 - See progress notes and H&P for detailed history.? Wound consult placed for sacral wound POA.? Patient agreeable to assessment and photo documentation.? Sacrum Etiology: Deep tissue Injury ??Present on Admission Measurements: 1cm x 3cm x 0cm Wound Bed: dark purple nonblanchable intact tissue Drainage / Odor: none Edges: ? irregular [place] wound: ? intact - hyperpigmentation noted, blanchable redness noted No Induration, Fluctuance or Warmth noted Pain: denies Goals of Treatment: ? off load pressure with foam dressing and Q2 hr turns Recommendations: 1. Turn and Reposition every 2 hours and as needed for patient comfort.? Use pillows or wedges to support off loading positions. 2. Off Load all bony prominences with use of pillows and heel boots if needed.? Apply Preventative foams where needed. ? 3. Monitor for incontinence and moisture control, use barrier creams when needed for prevention and treatment. 4. Provide adequate and supplemental nutrition.? 5. Order low air loss mattress. 6. When applicable maintain blood glucose levels per Providers order. 7. Sacrum - Off Load Pressure - Routine bathing - apply sacral foam dressing, peel back and assess Q shift and change every 5 days and PRN. Re-consult wound care Nurse for wound deterioration or wound changes.
[2023-12-28] MEDS: cefTRIAXone sodium 1 GM in 0.9 % Sodium Chloride 50 ML IV (17:42)
[2023-12-28] MEDS: Remdesivir 100 MG in 0.9 % Sodium Chloride 230 ML 115 MG IV (19:10)
[2023-12-28 20:30] LABS: Glucose, Whole Blood 136 mg/dL (60-115)
[2023-12-28] MEDS: Atorvastatin Calcium 40 MG TABLET PO (21:33)
[2023-12-28] MEDS: Mirtazapine 15 MG TABLET PO (21:33)
[2023-12-29] VITALS: BP 116/78; PULSE 97; RESP 20; TEMP 36.4; O2SAT 95
[2023-12-29] MEDS: 0.9 % Sodium Chloride Flush 3 ML SYRINGE IVFLUSH ×4 (00:17→22:52)
[2023-12-29 06:33] LABS: Hematocrit 36.3 % (42.0-52.0); Hemoglobin 11.9 g/dl (14.0-18.0); Mean Corpuscular HGB Conc 32.8 g/dl (31.0-36.0); Mean Corpuscular Hemoglobin 26.8 pg (27.0-33.0); Mean Corpuscular Volume 81.8 fL (80.0-98.0); Mean Platelet Volume 12.2 fL (9.4-12.4); Platelet Count 139 X10*3/uL (160-400); Red Blood Count 4.44 X10*6/uL (4.60-5.80); Red Cell Distribution Width 15.2 % (11.0-16.0); White Blood Count 7.2 X10*3/uL (4.8-10.8)
[2023-12-29 06:40] LABS: INTERNATIONAL NORM RATIO 2.7 (0.9-1.1); Prothrombin Time 32.8 SEC (11.1-13.3)
[2023-12-29 06:57] LABS: Anion Gap 13 (12-20); Blood Urea Nitrogen 37 mg/dL (9-16); Calcium 8.6 mg/dL (8.4-10.2); Carbon Dioxide 20 mmol/L (22-29); Chloride 114 mmol/L (96-108); Creatinine Clr Calc Pharmacy 45.6; Estimated Glomerular Filt Rate 38; Glucose Random 97 mg/dL (60-115); Potassium 4.8 mmol/L (3.3-5.1); Sodium 142 mmol/L (135-145)
[2023-12-29 06:59] LABS: Glucose, Whole Blood 87 mg/dL (60-115)
[2023-12-29 07:23] VITALS: BP 122/79; PULSE 90; RESP 18; TEMP 36.7; O2SAT 95
[2023-12-29 07:27] LABS: Procalcitonin 0.82 ng/mL
[2023-12-29] MEDS: Hydrocortisone 10 MG TABLET PO (09:45)
[2023-12-29] MEDS: Aspirin Enteric Coated 81 MG TABLET.DR PO (09:45)
[2023-12-29] MEDS: Magnesium Oxide 400 MG TABLET 200 MG PO ×3 (09:45→22:50)
[2023-12-29] MEDS: Ferrous Sulfate 324 MG TABLET.DR PO (09:46)
[2023-12-29] MEDS: FLUoxetine HCl 20 MG CAPSULE PO (09:46)
[2023-12-29] MEDS: Empagliflozin 10 MG TABLET PO (09:46)
[2023-12-29] MEDS: Tamsulosin HCL 0.4 MG CAPSULE PO (09:46)
[2023-12-29] MEDS: allopurinoL 100 MG TABLET PO (09:46)
[2023-12-29] MEDS: Doxycycline Monohydrate 100 MG CAPSULE PO ×2 (09:46→22:49)
[2023-12-29] MEDS: levETIRAcetam 250 MG TABLET 750 MG PO ×2 (09:46→22:49)
[2023-12-29] MEDS: Metoprolol Succinate ER 12.5 MG HALFTAB.ER.24H PO (09:46)
[2023-12-29 10:53] LABS: Glucose, Whole Blood 130 mg/dL (60-115)
--- NOTE | 2023-12-29 11:13 | P.PNIM_ITS ---
Subjective Subjective Date of Service: 12/29/23 Interval History: This history was taken in Stateless from the patient. Feels weak. Wet cough. No dyspnea. This history was taken in Stateless from the patient. Review of Systems Review of Systems: Yes all other systems are reviewed and are negative Physical Exam 2 Vital Signs: Vital Signs: Last Vital Signs Temp 98.0 F 12/29/23 07:23 Pulse 90 12/29/23 07:23 Resp 18 12/29/23 07:23 BP 122/79 12/29/23 07:23 Pulse Ox 95 12/29/23 07:23 O2 Del Method Room Air 12/29/23 07:23 BMI result Body Mass Index 29.6 Gen: in no acute distress but appears weak HEENT: sclera anicteric, moist mucus membranes Neck: supple Lungs: diminished Heart: irregular, no murmurs Abd: soft, non-tender, non-distended Ext: no edema Skin: warm/well-perfused Neuro: alert and oriented x3, difuse weakness, chronic RUE weakness Psych: appropriate affect Objective Data Active Medications Acetaminophen (Acetaminophen 325 Mg Tablet) 650 mg PO Q6H PRN PRN Reason: Pain, Mild (Pain Scale 1-3), fever or headache Last Admin: 12/27/23 21:37 Dose: 650 mg Documented By: PANCHITO Allopurinol (Allopurinol 100 Mg Tablet) 100 mg PO DAILY [facility] Last Admin: 12/29/23 09:46 Dose: 100 mg Documented By: JENNIFER Aspirin (Aspirin Enteric Coated 81 Mg Tablet.) 81 mg PO DAILY [facility] Last Admin: 12/29/23 09:45 Dose: 81 mg Documented By: JENNIFER Atorvastatin Calcium (Atorvastatin Calcium 40 Mg Tablet) 40 mg PO BEDTIME [facility] Last Admin: 12/28/23 21:33 Dose: 40 mg Documented By: BROQian Calcium Carbonate (Calcium Carbonate 750 Mg Tab.Chew) 750 mg PO Q4H PRN PRN Reason: Heartburn Doxycycline Monohydrate (Doxycycline Monohydrate 100 Mg Capsule) 100 mg PO Q12H [facility] Last Admin: 12/29/23 09:46 Dose: 100 mg Documented By: JENNIFER Empagliflozin (Empagliflozin 10 Mg Tablet) 10 mg PO DAILY [facility] Last Admin: 12/29/23 09:46 Dose: 10 mg Documented By: JENNIFER Famotidine (Famotidine 20 Mg Tablet) 20 mg PO DAILY PRN PRN Reason: heartburn Ferrous Sulfate (Ferrous Sulfate 324 Mg Tablet.) 324 mg PO DAILY [facility] Last Admin: 12/29/23 09:46 Dose: 324 mg Documented By: JENNIFER Fluoxetine HCl (Fluoxetine Hcl 20 Mg Capsule) 20 mg PO DAILY [facility] Last Admin: 12/29/23 09:46 Dose: 20 mg Documented By: JENNIFER Glucose (Glucose Gel 15 Gm Gel..Gram.) 15 gm PO Q15M PRN; Protocol PRN Reason: per Hypoglycemia Standing Ord. Hydrocortisone (Hydrocortisone 10 Mg Tablet) 10 mg PO DAILY [facility] Last Admin: 12/29/23 09:45 Dose: 10 mg Documented By: JENNIFER Ceftriaxone Sodium 1 gm/ (Sodium Chloride) 50 mls @ 100 mls/hr IV Q24H [facility] Last Infusion: 12/28/23 19:23 Dose: Infused Documented By: REBEKA Remdesivir 100 mg/ Sodium (Chloride) 230 mls @ 115 mls/hr IV Q24H [facility] Stop: 12/31/23 21:59 Last Infusion: 12/28/23 21:44 Dose: Infused Documented By: REBEKA Dextrose (D10) 250 mls @ 750 mls/hr IV Q15M PRN; Protocol PRN Reason: per Hypoglycemia Standing Ord. Insulin Human Lispro (Insulin Lispro 100 Unit/Ml 3 Ml Vial) 0 unit SUBCUT QIDACHS [facility]; Protocol Last Admin: 12/29/23 09:42 Dose: Not Given Documented By: JENNIFER Non-Admin Reason: poc= 87 Levetiracetam (Levetiracetam 250 Mg Tablet) 750 mg PO BID [facility] Last Admin: 12/29/23 09:46 Dose: 750 mg Documented By: JENNIFER Magnesium Hydroxide (Milk Of Magnesia 30 Ml Oral.Susp) 30 ml PO DAILY PRN PRN Reason: Constipation Magnesium Oxide (Magnesium Oxide 400 Mg Tablet) 200 mg PO TID [facility] Last Admin: 12/29/23 09:45 Dose: 200 mg Documented By: JENNIFER Melatonin (Melatonin 3 Mg Tablet) 6 mg PO BEDTIME PRN PRN Reason: Insomnia Last Admin: 12/27/23 21:37 Dose: 6 mg Documented By: PANCHITO Metoprolol Succinate (Metoprolol Succinate Er 12.5 Mg Halftab.Er.24h) 12.5 mg PO DAILY [facility]; Protocol Last Admin: 12/29/23 09:46 Dose: 12.5 mg Documented By: JENNIFER Mirtazapine (Mirtazapine 15 Mg Tablet) 15 mg PO BEDTIME [facility] Last Admin: 12/28/23 21:33 Dose: 15 mg Documented By: REBEKA Ondansetron HCl (Ondansetron Hcl 4 Mg/2 Ml Vial) 4 mg IVPUSH Q8H PRN PRN Reason: Nausea and Vomiting Sodium Chloride (0.9 % Sodium Chloride Flush 3 Ml Syringe) 3 ml IVFLUSH QSHIFT [facility] Last Admin: 12/29/23 09:46 Dose: 3 ml Documented By: JENNIFER Tamsulosin HCl (Tamsulosin Hcl 0.4 Mg Capsule) 0.4 mg PO DAILY [facility] Last Admin: 12/29/23 09:46 Dose: 0.4 mg Documented By: JENNIFER Warfarin Sodium (Warfarin Sodium 2.5 Mg Tablet) 2.5 mg PO [id number]@1800 [facility] Warfarin Sodium (Warfarin Sodium 5 Mg Tablet) 5 mg PO MoFr@1800 [facility] Labs 12/29/23 06:12 12/29/23 06:12 Labs: Laboratory Results - last 24 hr 12/28/23 12/28/23 12/28/23 11:18 16:09 20:27 MCV MCH MCHC RDW Plt Count MPV Absolute Nucleated RBC Nucleated RBC % (auto) PT INR Anion Gap Estim Creat Clear Calc Estimated GFR POC Glucose 159 H 141 H 136 H Random Glucose Calcium C-Reactive Protein Procalcitonin 12/29/23 12/29/23 12/29/23 06:12 06:53 10:49 MCV 81.8 MCH 26.8 L MCHC 32.8 RDW 15.2 Plt Count 139 L MPV 12.2 Absolute Nucleated RBC 0.000 Nucleated RBC % (auto) 0.0 PT 32.8 H D INR 2.7 H Anion Gap 13 Estim Creat Clear Calc 45.6 Estimated GFR 38 POC Glucose 87 130 H Random Glucose 97 Calcium 8.6 C-Reactive Protein 24.30 H Procalcitonin 0.82 Microbiology Microbiology Results: Microbiology 12/27/23 17:49 Blood Culture - Preliminary Blood - Venous No growth after 24 hours. 12/27/23 17:40 Blood Culture - Preliminary Blood - Venous No growth after 24 hours. Assessment and Plan (1) Renal insufficiency: Status: Acute (2) Pneumonia: Status: Acute Plan d3 78yo M with chronic AF anticoagulated on warfarin, hx CVA, CKD3, seizure disorder, DM2, HTN, and gout presenting with cough, dyspnea, chills, and malaise; tested positive for Covid-19 4d prior to admission and found to have a RUL infiltrate with evidence of bacterial pneumonia Covid-19 pneumonia with bacterial pneumonia superinfection - PSI score 114, risk class IV, 8.2-9.3% mortality -> inpatient indicated - 12/26-12/30 remdesivir IV x5d - 12/26- ceftriaxone + doxycycline; trend PCT/CRP, BCx + urinary antigens for Legionella and pneumococcus pending, monitor for hypoxia ?adrenal insufficiency - cannot find documentation in records of diagnosis but pt is on hydrocortisone 10 mg daily which we will continue; if BP low, will need stress-dose steroids JOYCE/CKD3 - FENa 0.7%; prerenal azotemia - SCr returned to baseline after IV fluid hydration chronic AF - resume warfarin today, INR 2.7 - continue metoprolol succinate seizure disorder - levetiracetam hx CVA - ASA, atorvastatin BPH - tamsuolsin gout - allopurinol mood disorder - mirtazapine, fluoxetine DM2 - hold MTF, give pj-dose lispro VTE ppx - warfarin dispo - STR recommended, possibly ready tomorrow In my clinical judgment, the patient requires continued inpatient hospitalization for the following reasons: IV ABX, PSI class IV Total time managing care of this patient today: 35 minutes. Quality Stroke Does the patient have a stroke diagnosis?: No VTE Prior VTE?: No VTE Risk Level:: Medical - moderate - high VTE Device Contraindication: N/A - Device Ordered VTE Drug Contraindication: N/A - Med Ordered
--- NOTE | 2023-12-29 11:17 | MHC.CM.PN ---
Addendum entered by Mia Valentino 12/29/23 14:23: Bed offer received from [facility] at [facility], this CM met with pt to discuss with the assistance of a inspector radar and electronics. Pt accepts bed offer, and this CM requested facility go for insurance auth. Original Note: EMR reviewed and per MD rounds, pt is not medically cleared for discharge today, anticipating pt will discharge to STR tomorrow, referrals placed, awaiting STR bed offer.
[2023-12-29 15:14] VITALS: BP 122/79; PULSE 90; O2SAT 95
[2023-12-29 15:17] VITALS: BP 139/71; PULSE 92; RESP 18; TEMP 36.7; O2SAT 93
[2023-12-29 15:22] LABS: Glucose, Whole Blood 183 mg/dL (60-115)
[2023-12-29] MEDS: cefTRIAXone sodium 1 GM in 0.9 % Sodium Chloride 50 ML IV (16:46)
[2023-12-29] MEDS: Warfarin Sodium 5 MG TABLET PO (16:46)
[2023-12-29] MEDS: Insulin Lispro 100 UNIT/ML 3 ML VIAL SUBCUT ×2 (16:46→22:50)
[2023-12-29 21:26] LABS: Glucose, Whole Blood 169 mg/dL (60-115)
[2023-12-29] MEDS: Atorvastatin Calcium 40 MG TABLET PO (22:49)
[2023-12-29] MEDS: Mirtazapine 15 MG TABLET PO (22:49)
[2023-12-29] MEDS: Remdesivir 100 MG in 0.9 % Sodium Chloride 230 ML 115 MG IV (22:51)
[2023-12-29 23:33] VITALS: BP 100/67; PULSE 80; RESP 20; TEMP 36.2; O2SAT 93
[2023-12-30 07:15] LABS: INTERNATIONAL NORM RATIO 2.3 (0.9-1.1)
[2023-12-30 07:39] LABS: Glucose, Whole Blood 85 mg/dL (60-115)
[2023-12-30 08:00] VITALS: BP 95/74; PULSE 80; RESP 20; TEMP 36.8; O2SAT 97
[2023-12-30] MEDS: Doxycycline Monohydrate 100 MG CAPSULE PO ×2 (09:29→21:31)
[2023-12-30] MEDS: Hydrocortisone 10 MG TABLET PO (09:29)
[2023-12-30] MEDS: Aspirin Enteric Coated 81 MG TABLET.DR PO (09:29)
[2023-12-30] MEDS: Empagliflozin 10 MG TABLET PO (09:29)
[2023-12-30] MEDS: Ferrous Sulfate 324 MG TABLET.DR PO (09:29)
[2023-12-30] MEDS: levETIRAcetam 250 MG TABLET 750 MG PO ×2 (09:29→21:31)
[2023-12-30] MEDS: FLUoxetine HCl 20 MG CAPSULE PO (09:29)
[2023-12-30] MEDS: Magnesium Oxide 400 MG TABLET 200 MG PO ×3 (09:29→21:30)
[2023-12-30] MEDS: Tamsulosin HCL 0.4 MG CAPSULE PO (09:29)
[2023-12-30] MEDS: allopurinoL 100 MG TABLET PO (09:29)
[2023-12-30] MEDS: 0.9 % Sodium Chloride Flush 3 ML SYRINGE IVFLUSH ×3 (09:30→21:32)
[2023-12-30 09:35] VITALS: BP 94/73; PULSE 83; RESP 18
[2023-12-30] MEDS: Metoprolol Succinate ER 12.5 MG HALFTAB.ER.24H PO (09:37)
[2023-12-30 11:33] LABS: Glucose, Whole Blood 133 mg/dL (60-115)
[2023-12-30 16:00] VITALS: BP 102/74; PULSE 84; RESP 18; TEMP 36.2; O2SAT 94
--- NOTE | 2023-12-30 16:13 | HO.PM.IMPN ---
Subjective Subjective Date of Service: 12/30/23 Interval History: No acute issues overall. Breathing returned to baseline Review of Systems Denies chest pain Denies shortness of breath Denies nausea vomiting diarrhea Denies fever chills Physical Exam Vital Signs: Vital Signs: Last Vital Signs Temp 98.2 F 12/30/23 08:00 Pulse 83 12/30/23 09:35 Resp 18 12/30/23 09:35 BP 94/73 12/30/23 09:35 Pulse Ox 97 12/30/23 08:00 O2 Del Method Room Air 12/30/23 08:00 BMI result Body Mass Index 29.6 Const: Other: Awake alert no acute distress Resp: Other: Diminished at bases with scant expiratory wheezes Cardio: Other: No S4; positive S1-S2; no S3 murmurs rubs or gallops GI: Other: Soft nontender nondistended normoactive bowel sounds Extrem: Other: No edema bilaterally Objective Data Active Medications Acetaminophen (Acetaminophen 325 Mg Tablet) 650 mg PO Q6H PRN PRN Reason: Pain, Mild (Pain Scale 1-3), fever or headache Last Admin: 12/27/23 21:37 Dose: 650 mg Documented By: PANCHITO Allopurinol (Allopurinol 100 Mg Tablet) 100 mg PO DAILY [facility] Last Admin: 12/30/23 09:29 Dose: 100 mg Documented By: JENNIFER Aspirin (Aspirin Enteric Coated 81 Mg Tablet.) 81 mg PO DAILY [facility] Last Admin: 12/30/23 09:29 Dose: 81 mg Documented By: JENNIFER Atorvastatin Calcium (Atorvastatin Calcium 40 Mg Tablet) 40 mg PO BEDTIME [facility] Last Admin: 12/29/23 22:49 Dose: 40 mg Documented By: HUMAIRA Calcium Carbonate (Calcium Carbonate 750 Mg Tab.Chew) 750 mg PO Q4H PRN PRN Reason: Heartburn Doxycycline Monohydrate (Doxycycline Monohydrate 100 Mg Capsule) 100 mg PO Q12H [facility] Last Admin: 12/30/23 09:29 Dose: 100 mg Documented By: JENNIFER Empagliflozin (Empagliflozin 10 Mg Tablet) 10 mg PO DAILY [facility] Last Admin: 12/30/23 09:29 Dose: 10 mg Documented By: JENNIFER Famotidine (Famotidine 20 Mg Tablet) 20 mg PO DAILY PRN PRN Reason: heartburn Ferrous Sulfate (Ferrous Sulfate 324 Mg Tablet.) 324 mg PO DAILY [facility] Last Admin: 12/30/23 09:29 Dose: 324 mg Documented By: JENNIFER Fluoxetine HCl (Fluoxetine Hcl 20 Mg Capsule) 20 mg PO DAILY [facility] Last Admin: 12/30/23 09:29 Dose: 20 mg Documented By: JENNIFER Glucose (Glucose Gel 15 Gm Gel..Gram.) 15 gm PO Q15M PRN; Protocol PRN Reason: per Hypoglycemia Standing Ord. Hydrocortisone (Hydrocortisone 10 Mg Tablet) 10 mg PO DAILY [facility] Last Admin: 12/30/23 09:29 Dose: 10 mg Documented By: JENNIFER Ceftriaxone Sodium 1 gm/ (Sodium Chloride) 50 mls @ 100 mls/hr IV Q24H [facility] Last Infusion: 12/29/23 17:16 Dose: Infused Documented By: JENNIFER Remdesivir 100 mg/ Sodium (Chloride) 230 mls @ 115 mls/hr IV Q24H [facility] Stop: 12/31/23 21:59 Last Infusion: 12/30/23 01:42 Dose: Infused Documented By: HUMAIRA Dextrose (D10) 250 mls @ 750 mls/hr IV Q15M PRN; Protocol PRN Reason: per Hypoglycemia Standing Ord. Insulin Human Lispro (Insulin Lispro 100 Unit/Ml 3 Ml Vial) 0 unit SUBCUT QIDACHS [facility]; Protocol Last Admin: 12/30/23 11:38 Dose: Not Given Documented By: JENNIFER Non-Admin Reason: poc= 133 Levetiracetam (Levetiracetam 250 Mg Tablet) 750 mg PO BID [facility] Last Admin: 12/30/23 09:29 Dose: 750 mg Documented By: JENNIFER Magnesium Hydroxide (Milk Of Magnesia 30 Ml Oral.Susp) 30 ml PO DAILY PRN PRN Reason: Constipation Magnesium Oxide (Magnesium Oxide 400 Mg Tablet) 200 mg PO TID [facility] Last Admin: 12/30/23 14:52 Dose: 200 mg Documented By: JENNIFER Melatonin (Melatonin 3 Mg Tablet) 6 mg PO BEDTIME PRN PRN Reason: Insomnia Last Admin: 12/27/23 21:37 Dose: 6 mg Documented By: PANCHITO Metoprolol Succinate (Metoprolol Succinate Er 12.5 Mg Halftab.Er.24h) 12.5 mg PO DAILY [facility]; Protocol Last Admin: 12/30/23 09:37 Dose: 12.5 mg Documented By: JENNIFER Mirtazapine (Mirtazapine 15 Mg Tablet) 15 mg PO BEDTIME [facility] Last Admin: 12/29/23 22:49 Dose: 15 mg Documented By: HUMAIRA Ondansetron HCl (Ondansetron Hcl 4 Mg/2 Ml Vial) 4 mg IVPUSH Q8H PRN PRN Reason: Nausea and Vomiting Sodium Chloride (0.9 % Sodium Chloride Flush 3 Ml Syringe) 3 ml IVFLUSH QSHIFT [facility] Last Admin: 12/30/23 15:05 Dose: 3 ml Documented By: JENNIFER Tamsulosin HCl (Tamsulosin Hcl 0.4 Mg Capsule) 0.4 mg PO DAILY [facility] Last Admin: 12/30/23 09:29 Dose: 0.4 mg Documented By: JENNIFER Warfarin Sodium (Warfarin Sodium 2.5 Mg Tablet) 2.5 mg PO SuTuWeThSa@1800 [facility] Warfarin Sodium (Warfarin Sodium 5 Mg Tablet) 5 mg PO MoFr@1800 [facility] Last Admin: 12/29/23 16:46 Dose: 5 mg Documented By: JENNIFER Labs 12/29/23 06:12 12/29/23 06:12 Labs: Laboratory Results - last 24 hr 12/29/23 12/30/23 12/30/23 21:21 06:45 07:34 Hold Purple Top SEE NOTE PT 28.0 H INR 2.3 H POC Glucose 169 H 85 12/30/23 11:11 Hold Purple Top PT INR POC Glucose 133 H Microbiology Microbiology Results: Microbiology 12/27/23 17:49 Blood Culture - Preliminary Blood - Venous No growth after 48 hours. 12/27/23 17:40 Blood Culture - Preliminary Blood - Venous No growth after 48 hours. Assessment and Plan (1) Pneumonia: Status: Acute (2) COVID: Status: Acute Plan 78yo M with chronic AF anticoagulated on warfarin, hx CVA, CKD3, seizure disorder, DM2, HTN, and gout presenting with cough, dyspnea, chills, and malaise; tested positive for Covid-19 4d prior to admission and found to have a RUL infiltrate with evidence of bacterial pneumonia 1.Covid-19 pneumonia with bacterial pneumonia superinfection -12/26-12/30 remdesivir IV x5d -ceftriaxone/doxycycline (4) switch to p.o. upon discharge 2.?adrenal insufficiency - cannot find documentation in records; continue hydrocortisone 10 mg daily 3.JOYCE/CKD3 -responded to volume repletion -follow renals/divalent 3.Chronic AF -acceptable control on current therapies -Coumadin therapeutic; follow daily PT INR -adjust therapies as indicated 4. Diabetes type 2 -acceptable control on current therapies -lispro correctional scale -and back metformin when appropriate Requires ongoing hospitalization for IV antibiotics pending short-term rehab placement Quality Stroke Does the patient have a stroke diagnosis?: No VTE Prior VTE?: No VTE Risk Level:: Medical - moderate - high VTE Device Contraindication: N/A - Device Ordered VTE Drug Contraindication: N/A - Med Ordered
[2023-12-30 16:30] LABS: Glucose, Whole Blood 125 mg/dL (60-115)
[2023-12-30] MEDS: Warfarin Sodium 2.5 MG TABLET PO (16:55)
[2023-12-30] MEDS: cefTRIAXone sodium 1 GM in 0.9 % Sodium Chloride 50 ML IV (16:55)
[2023-12-30 21:27] LABS: Glucose, Whole Blood 136 mg/dL (60-115)
[2023-12-30] MEDS: Remdesivir 100 MG in 0.9 % Sodium Chloride 230 ML 115 MG IV (21:30)
[2023-12-30] MEDS: Atorvastatin Calcium 40 MG TABLET PO (21:31)
[2023-12-30] MEDS: Mirtazapine 15 MG TABLET PO (21:31)
[2023-12-30 23:29] VITALS: BP 114/76; PULSE 74; RESP 20; TEMP 36.3; O2SAT 98
[2023-12-31 00:42] LABS: Strep Pneumo Ag urine Not Detected (Not Detected)
[2023-12-31 07:13] LABS: Anion Gap 12 (12-20); Blood Urea Nitrogen 44 mg/dL (9-16); Calcium 8.3 mg/dL (8.4-10.2); Carbon Dioxide 20 mmol/L (22-29); Chloride 114 mmol/L (96-108); Creatinine Clr Calc Pharmacy 54.2; Estimated Glomerular Filt Rate 46; Glucose Fasting 83 mg/dL (60-99); Potassium 4.6 mmol/L (3.3-5.1); Sodium 141 mmol/L (135-145)
[2023-12-31 07:14] LABS: INTERNATIONAL NORM RATIO 2.7 (0.9-1.1); Prothrombin Time 33.2 SEC (11.1-13.3)
[2023-12-31 07:59] LABS: Glucose, Whole Blood 72 mg/dL (60-115)
[2023-12-31 08:00] VITALS: BP 126/83; PULSE 72; RESP 20; TEMP 36.6; O2SAT 98
[2023-12-31] MEDS: Tamsulosin HCL 0.4 MG CAPSULE PO (09:05)
[2023-12-31] MEDS: Aspirin Enteric Coated 81 MG TABLET.DR PO (09:05)
[2023-12-31] MEDS: levETIRAcetam 250 MG TABLET 750 MG PO ×2 (09:05→20:15)
[2023-12-31] MEDS: Metoprolol Succinate ER 12.5 MG HALFTAB.ER.24H PO (09:05)
[2023-12-31] MEDS: Empagliflozin 10 MG TABLET PO (09:05)
[2023-12-31] MEDS: Ferrous Sulfate 324 MG TABLET.DR PO (09:05)
[2023-12-31] MEDS: Hydrocortisone 10 MG TABLET PO (09:05)
[2023-12-31] MEDS: allopurinoL 100 MG TABLET PO (09:05)
[2023-12-31] MEDS: Doxycycline Monohydrate 100 MG CAPSULE PO ×2 (09:06→20:16)
[2023-12-31] MEDS: FLUoxetine HCl 20 MG CAPSULE PO (09:06)
[2023-12-31] MEDS: Magnesium Oxide 400 MG TABLET 200 MG PO ×3 (09:06→20:16)
[2023-12-31] MEDS: 0.9 % Sodium Chloride Flush 3 ML SYRINGE IVFLUSH ×3 (09:06→20:25)
[2023-12-31 09:18] LABS: Legionella Ag Urine Not Detected (Not Detected)
[2023-12-31 11:49] LABS: Glucose, Whole Blood 114 mg/dL (60-115)
--- NOTE | 2023-12-31 13:12 | P.PNIM_ITS ---
Subjective Subjective Date of Service: 12/31/23 Interval History: No acute issues overnight. Resting quietly on room air Review of Systems Denies chest pain Denies shortness of breath Denies nausea vomiting diarrhea Denies fever chills Physical Exam 2 Vital Signs: Vital Signs: Last Vital Signs Temp 97.8 F 12/31/23 08:00 Pulse 72 12/31/23 08:00 Resp 20 12/31/23 08:00 BP 126/83 12/31/23 08:00 Pulse Ox 98 12/31/23 08:00 O2 Del Method Room Air 12/31/23 08:00 BMI result Body Mass Index 29.6 Const: Other: Awake alert no acute distress Resp: Other: Diminished at bases with scant expiratory wheezes Cardio: Other: No S4; positive S1-S2; no S3 murmurs rubs or gallops GI: Other: Soft nontender nondistended normoactive bowel sounds Extrem: Other: No edema bilaterally Objective Data Active Medications Acetaminophen (Acetaminophen 325 Mg Tablet) 650 mg PO Q6H PRN PRN Reason: Pain, Mild (Pain Scale 1-3), fever or headache Last Admin: 12/27/23 21:37 Dose: 650 mg Documented By: PANCHITO Allopurinol (Allopurinol 100 Mg Tablet) 100 mg PO DAILY [facility] Last Admin: 12/31/23 09:05 Dose: 100 mg Documented By: JENNIFER Aspirin (Aspirin Enteric Coated 81 Mg Tablet.) 81 mg PO DAILY [facility] Last Admin: 12/31/23 09:05 Dose: 81 mg Documented By: JENNIFER Atorvastatin Calcium (Atorvastatin Calcium 40 Mg Tablet) 40 mg PO BEDTIME [facility] Last Admin: 12/30/23 21:31 Dose: 40 mg Documented By: HUMAIRA Calcium Carbonate (Calcium Carbonate 750 Mg Tab.Chew) 750 mg PO Q4H PRN PRN Reason: Heartburn Doxycycline Monohydrate (Doxycycline Monohydrate 100 Mg Capsule) 100 mg PO Q12H [facility] Last Admin: 12/31/23 09:06 Dose: 100 mg Documented By: JENNIFER Empagliflozin (Empagliflozin 10 Mg Tablet) 10 mg PO DAILY [facility] Last Admin: 12/31/23 09:05 Dose: 10 mg Documented By: JENNIFER Famotidine (Famotidine 20 Mg Tablet) 20 mg PO DAILY PRN PRN Reason: heartburn Ferrous Sulfate (Ferrous Sulfate 324 Mg Tablet.) 324 mg PO DAILY [facility] Last Admin: 12/31/23 09:05 Dose: 324 mg Documented By: JENNIFER Fluoxetine HCl (Fluoxetine Hcl 20 Mg Capsule) 20 mg PO DAILY [facility] Last Admin: 12/31/23 09:06 Dose: 20 mg Documented By: JENNIFER Glucose (Glucose Gel 15 Gm Gel..Gram.) 15 gm PO Q15M PRN; Protocol PRN Reason: per Hypoglycemia Standing Ord. Hydrocortisone (Hydrocortisone 10 Mg Tablet) 10 mg PO DAILY [facility] Last Admin: 12/31/23 09:05 Dose: 10 mg Documented By: JENNIFER Ceftriaxone Sodium 1 gm/ (Sodium Chloride) 50 mls @ 100 mls/hr IV Q24H [facility] Last Infusion: 12/30/23 17:25 Dose: Infused Documented By: JENNIFER Remdesivir 100 mg/ Sodium (Chloride) 230 mls @ 115 mls/hr IV Q24H [facility] Stop: 12/31/23 21:59 Last Infusion: 12/30/23 23:57 Dose: Infused Documented By: HUMAIRA Dextrose (D10) 250 mls @ 750 mls/hr IV Q15M PRN; Protocol PRN Reason: per Hypoglycemia Standing Ord. Insulin Human Lispro (Insulin Lispro 100 Unit/Ml 3 Ml Vial) 0 unit SUBCUT QIDACHS [facility]; Protocol Last Admin: 12/31/23 12:14 Dose: Not Given Documented By: JENNIFER Non-Admin Reason: poc= 114 Levetiracetam (Levetiracetam 250 Mg Tablet) 750 mg PO BID [facility] Last Admin: 12/31/23 09:05 Dose: 750 mg Documented By: JENNIFER Magnesium Hydroxide (Milk Of Magnesia 30 Ml Oral.Susp) 30 ml PO DAILY PRN PRN Reason: Constipation Magnesium Oxide (Magnesium Oxide 400 Mg Tablet) 200 mg PO TID [facility] Last Admin: 12/31/23 09:06 Dose: 200 mg Documented By: JENNIFER Melatonin (Melatonin 3 Mg Tablet) 6 mg PO BEDTIME PRN PRN Reason: Insomnia Last Admin: 12/27/23 21:37 Dose: 6 mg Documented By: PANCHITO Metoprolol Succinate (Metoprolol Succinate Er 12.5 Mg Halftab.Er.24h) 12.5 mg PO DAILY [facility]; Protocol Last Admin: 12/31/23 09:05 Dose: 12.5 mg Documented By: JENNIFER Mirtazapine (Mirtazapine 15 Mg Tablet) 15 mg PO BEDTIME [facility] Last Admin: 12/30/23 21:31 Dose: 15 mg Documented By: HUMAIRA Ondansetron HCl (Ondansetron Hcl 4 Mg/2 Ml Vial) 4 mg IVPUSH Q8H PRN PRN Reason: Nausea and Vomiting Sodium Chloride (0.9 % Sodium Chloride Flush 3 Ml Syringe) 3 ml IVFLUSH QSHIFT [facility] Last Admin: 12/31/23 09:06 Dose: 3 ml Documented By: JENNIFER Tamsulosin HCl (Tamsulosin Hcl 0.4 Mg Capsule) 0.4 mg PO DAILY [facility] Last Admin: 12/31/23 09:05 Dose: 0.4 mg Documented By: JENNIFER Warfarin Sodium (Warfarin Sodium 2.5 Mg Tablet) 2.5 mg PO SuTuWeThSa@1800 [facility] Last Admin: 12/30/23 16:55 Dose: 2.5 mg Documented By: JENNIFER Warfarin Sodium (Warfarin Sodium 5 Mg Tablet) 5 mg PO MoFr@1800 [facility] Last Admin: 12/29/23 16:46 Dose: 5 mg Documented By: JENNIFER Labs 12/29/23 06:12 12/31/23 05:59 Labs: Laboratory Results - last 24 hr 12/27/23 12/30/23 12/30/23 18:05 16:04 21:07 Hold Purple Top PT INR Anion Gap Estim Creat Clear Calc Estimated GFR POC Glucose 125 H 136 H Fasting Glucose Calcium Ur L.pneumophila Ag Not Detected Ur Strep pneumoniae Ag Not Detected 12/31/23 12/31/23 12/31/23 05:59 07:37 11:44 Hold Purple Top SEE NOTE PT 33.2 H INR 2.7 H Anion Gap 12 Estim Creat Clear Calc 54.2 Estimated GFR 46 POC Glucose 72 114 Fasting Glucose 83 Calcium 8.3 L Ur L.pneumophila Ag Ur Strep pneumoniae Ag Assessment and Plan (1) COVID: Status: Acute (2) Pneumonia: Status: Acute Plan 78yo M with chronic AF anticoagulated on warfarin, hx CVA, CKD3, seizure disorder, DM2, HTN, and gout presenting with cough, dyspnea, chills, and malaise; tested positive for Covid-19 4d prior to admission and found to have a RUL infiltrate with evidence of bacterial pneumonia 1.Covid-19 pneumonia with bacterial pneumonia superinfection -12/26-12/30 remdesivir IV x5d -ceftriaxone/doxycycline (5) switch to p.o. upon discharge -awaiting authorization for placement 2.?adrenal insufficiency - cannot find documentation in records; continue hydrocortisone 10 mg daily 3.JOYCE/CKD3 -responded to volume repletion -follow renals/divalent 3.Chronic AF -acceptable control on current therapies -Coumadin therapeutic; follow daily PT INR -adjust therapies as indicated 4. Diabetes type 2 -acceptable control on current therapies -lispro correctional scale -and back metformin when appropriate Requires ongoing hospitalization for IV antibiotics pending short-term rehab placement authorization Quality Stroke Does the patient have a stroke diagnosis?: No VTE Prior VTE?: No VTE Risk Level:: Medical - moderate - high VTE Device Contraindication: N/A - Device Ordered VTE Drug Contraindication: N/A - Med Ordered
[2023-12-31 16:00] VITALS: BP 108/69; PULSE 64; RESP 18; TEMP 37.2; O2SAT 95
[2023-12-31 16:16] LABS: Glucose, Whole Blood 156 mg/dL (60-115)
[2023-12-31] MEDS: cefTRIAXone sodium 1 GM in 0.9 % Sodium Chloride 50 ML IV (16:58)
[2023-12-31] MEDS: Insulin Lispro 100 UNIT/ML 3 ML VIAL SUBCUT (16:58)
[2023-12-31] MEDS: Warfarin Sodium 2.5 MG TABLET PO (16:58)
[2023-12-31 19:20] VITALS: BP 107/76; PULSE 59; RESP 16; TEMP 36.6; O2SAT 97
[2023-12-31] MEDS: Atorvastatin Calcium 40 MG TABLET PO (20:15)
[2023-12-31] MEDS: Mirtazapine 15 MG TABLET PO (20:16)
[2023-12-31] MEDS: Remdesivir 100 MG in 0.9 % Sodium Chloride 230 ML 115 MG IV (20:17)
[2023-12-31 21:10] LABS: Glucose, Whole Blood 107 mg/dL (60-115)
[2024-01-01] VITALS: BP 130/87; PULSE 60; RESP 18; TEMP 36.3; O2SAT 95
[2024-01-01 06:32] LABS: INTERNATIONAL NORM RATIO 2.5 (0.9-1.1); Prothrombin Time 30.4 SEC (11.1-13.3)
[2024-01-01 07:20] VITALS: BP 129/75; PULSE 65; RESP 20; TEMP 36.3; O2SAT 98
[2024-01-01 07:28] LABS: Glucose, Whole Blood 72 mg/dL (60-115)
--- NOTE | 2024-01-01 08:36 | P.CDIM_ITS ---
PROVIDER RESPONSE TEXT: To clarify, the appropriate diagnosis supported by the clinical indicators: DTI sacrum, present on arrival QUERY TEXT: PHYSICIAN'S DOCUMENTATION REQUEST Date of Query: 01/01/2024 08:07 AM EDT Patient Name: Yousif Mcintosh Admit Date: 12/27/2023 Dear Duke Panchal DO, A review of the medical record indicates additional documentation may be needed. Please review below and update the documentation accordingly. Clinical Indicators: Wound care notes - Deep Tissue Injury - Sacrum, present on arrival. Off load pressure with foam dressing and Q2 hr turns. Based on the above, could you please provide further information regarding the ulcer/wound/injury: DTI sacrum, present on arrival Other (explain) Clinically unable to determine (explain) Thank you, Beverly Plummer, CCS, CDIS Use of terms such as suspected, likely, concern for, or probable (associated with a specific diagnosi s that is being evaluated, monitored, or treated as if it exists) are acceptable and can be coded in the inpatient se tting, when documented at the time of discharge. Please use your independent medical judgment in providing your response. THIS QUERY IS PART OF THE PERMANENT MEDICAL RECORD
[2024-01-01] MEDS: Doxycycline Monohydrate 100 MG CAPSULE PO (09:28)
[2024-01-01] MEDS: allopurinoL 100 MG TABLET PO (09:29)
[2024-01-01] MEDS: Hydrocortisone 10 MG TABLET PO (09:29)
[2024-01-01] MEDS: Empagliflozin 10 MG TABLET PO (09:29)
[2024-01-01] MEDS: 0.9 % Sodium Chloride Flush 3 ML SYRINGE IVFLUSH ×2 (09:29→16:10)
[2024-01-01] MEDS: Aspirin Enteric Coated 81 MG TABLET.DR PO (09:29)
[2024-01-01] MEDS: Ferrous Sulfate 324 MG TABLET.DR PO (09:29)
[2024-01-01] MEDS: Magnesium Oxide 400 MG TABLET 200 MG PO ×2 (09:29→16:10)
[2024-01-01] MEDS: levETIRAcetam 250 MG TABLET 750 MG PO (09:29)
[2024-01-01] MEDS: Metoprolol Succinate ER 12.5 MG HALFTAB.ER.24H PO (09:29)
[2024-01-01] MEDS: FLUoxetine HCl 20 MG CAPSULE PO (09:29)
[2024-01-01] MEDS: Tamsulosin HCL 0.4 MG CAPSULE PO (09:29)
[2024-01-01 11:08] LABS: Glucose, Whole Blood 129 mg/dL (60-115)
--- NOTE | 2024-01-01 13:35 | MHC.CM.PN ---
EMR reviewed and per MD rounds, pt remains medically cleared for discharge to [facility], awaiting [employer] insurance auth for [facility].
--- NOTE | 2024-01-01 14:21 | P.DS_ITS ---
DS: Providers Provider Date of Service: 01/01/24 Date of admission: 12/27/23 18:38 Date of discharge: 01/01/24 Primary care physician: Poonam Mejia MD Consults: 12/28/23 16:20 Consult to Wound Care Routine Reason for consultation: sacrum DS: Diagnosis Discharge Diagnosis (1) COVID: Status: Acute (2) Pneumonia: Status: Acute DS: Summary Hospital Course Hospital Course: 78yo M with chronic AF anticoagulated on warfarin, hx CVA, CKD3, seizure disorder, DM2, HTN, and gout who lives alone but has a [employer]. He developed cough, dyspnea, malaise, and chills 5 days ago. No actual fever. He had a positive home test for Covid-19 on 12/23/23. His [employer] called an ambulance today because he was very weak and continues to cough with sputum. He was unable to get out of bed for the past 2 days. He was found to have an early RUL infiltrate. Not septic and not hypoxic. CRP high at 23 and PCT 1.44. Creatinine worse than baseline of 1.7 at 2.3. Hospital course Initial workup revealed a left upper lobe infiltrate in the backdrop of COVID. Patient was started on IV ceftriaxone and doxycycline over course of the next 72 hours improved no longer needing O2 requirement. Seen in consultation by PT who recommended short-term rehab. At this point in time he is medically acceptable for discharge to complete a course of oral antibiotics as outlined Time Attestation Discharge Coordination Time (in mins): 35 Quality: Safe Use of Opioids Does Pt have an Active Cancer Diagnosis on the Problem List?: No Quality: Stroke Does the patient have a stroke diagnosis?: No Physical Exam Vital Signs: Vital Signs: Last Vital Signs Temp 97.4 F 01/01/24 07:20 Pulse 65 01/01/24 07:20 Resp 20 01/01/24 07:20 BP 129/75 01/01/24 07:20 Pulse Ox 98 01/01/24 07:20 O2 Del Method Room Air 01/01/24 07:20 BMI result Body Mass Index 29.6 Const: Other: Awake alert no acute distress Resp: Other: Diminished at bases with scant expiratory wheezes Cardio: Other: No S4; positive S1-S2; no S3 murmurs rubs or gallops GI: Other: Soft nontender nondistended normoactive bowel sounds Extrem: Other: No edema bilaterally DS: Data Data Completed and Pending Labs on day of discharge: Laboratory Results - last 24 hr 12/31/23 12/31/23 01/01/24 15:58 21:03 06:16 PT 30.4 H INR 2.5 H POC Glucose 156 H 107 01/01/24 01/01/24 07:21 11:03 PT INR POC Glucose 72 129 H Preliminary micro results at discharge 12/27/23 17:49 Blood Culture - Preliminary Blood - Venous No growth after 48 hours. 12/27/23 17:40 Blood Culture - Preliminary Blood - Venous No growth after 48 hours. Discharge Plan Discharge Anticipated Discharge Date/Time: 01/01/24 14:03 Patient Disposition: Xfer Inpatient Rehab Fac Discharge Diagnosis: COVID-19 pneumonia Referrals: [facility] [Outside] - 1 Week Poonam Hernandez MD [Primary Care Provider] - 1 Week Discharge Medications: New doxycycline monohydrate 100 mg Capsule 100 mg PO Q12H Qty: 20 0RF hydrocortisone [Cortef] 10 mg Tablet 10 mg PO DAILY Qty: 30 0RF cefuroxime axetil 500 mg tablet 500 mg PO BID 10 Days Qty: 20 0RF Continued (DME) power wheelchair See Rx Instructions .Route .MEDSUPPLY Qty: 1 0RF Rx Instructions: As directed (DME) blood-glucose meter [OneTouch Ultra2 Meter] Misc See Rx Instructions .Route Qty: 1 0RF Rx Instructions: test once per day (DME) OneTouch Ultra Test Strip See Rx Instructions .Route Qty: 100 4RF Rx Instructions: test once per day (DME) lancets [Onetouch Delica Safety Lancet] 30 gauge misc See Rx Instructions .Route Qty: 100 4RF Rx Instructions: test once per day (DME) adult diapers pull-ups XL See Rx Instructions .Route .MEDSUPPLY Qty: 240 11RF Rx Instructions: As directed (DME) gloves Medium See Rx Instructions .Route .MEDSUPPLY Qty: 200 0RF Rx Instructions: As directed (DME) incontinent wipes See Rx Instructions .Route .MEDSUPPLY Qty: 200 0RF Rx Instructions: As directed atorvastatin 40 mg tablet 40 mg PO BEDTIME 90 Days Qty: 90 3RF Jardiance 10 mg tablet 10 mg PO DAILY 90 Days Qty: 90 1RF metoprolol succinate 25 mg tablet extended release 24 hr 12.5 mg PO DAILY Qty: 90 0RF ferrous sulfate 325 mg (65 mg iron) tablet 325 mg PO DAILY 60 Days Qty: 60 6RF allopurinol 100 mg tablet 100 mg PO DAILY Qty: 90 6RF metformin 500 mg tablet 500 mg PO DAILY 90 Days Qty: 90 1RF mirtazapine 15 mg tablet 15 mg PO BEDTIME 90 Days Qty: 90 3RF famotidine 20 mg tablet 20 mg PO DAILY PRN (Reason: heartburn) 30 Days Qty: 30 2RF hydrocortisone [Cortef] 5 mg tablet 10 mg PO DAILY Qty: 120 0RF magnesium oxide 250 mg magnesium tablet 500 mg PO TID 30 Days Qty: 180 1RF aspirin 81 mg tablet,delayed release (DR/EC) 81 mg PO DAILY 90 Days Qty: 90 0RF tamsulosin 0.4 mg capsule 0.4 mg PO DAILY 90 Days Qty: 90 0RF levetiracetam 750 mg tablet 750 mg PO BID 90 Days Qty: 180 0RF Paxlovid 300 mg (150 mg x 2)-100 mg tablets,dose pack 3 ea PO PER PKG DIR 5 Days Qty: 30 0RF fluoxetine 20 mg capsule 20 mg PO DAILY warfarin 5 mg tablet 5 mg PO MOFR Protocol: Dose Management Condition: Monday (Week One) Dose/Route: 2.5 mg Instruction: 1 x 2.5 mg tablet Condition: Monday Dose/Route: 5 mg Instruction: 1 x 5 mg tablet Condition: Monday Dose/Route: 2.5 mg Instruction: 1 x 2.5 mg tablet Condition: Monday Dose/Route: 2.5 mg Instruction: 1 x 2.5 mg tablet Condition: Dose/Route: 2.5 mg Instruction: 1 x 2.5 mg tablet Condition: Monday Dose/Route: 5 mg Instruction: 1 x 5 mg tablet Condition: Monday Dose/Route: 2.5 mg Instruction: 1 x 2.5 mg tablet Condition: Monday (Week Two) Dose/Route: 2.5 mg Instruction: 1 x 2.5 mg tablet Condition: Monday Dose/Route: 5 mg Instruction: 1 x 5 mg tablet Condition: Monday Dose/Route: 2.5 mg Instruction: 1 x 2.5 mg tablet Condition: Monday Dose/Route: 2.5 mg Instruction: 1 x 2.5 mg tablet Condition: Dose/Route: 2.5 mg Instruction: 1 x 2.5 mg tablet Condition: Monday Dose/Route: 5 mg Instruction: 1 x 5 mg tablet Condition: Monday Dose/Route: 2.5 mg Instruction: 1 x 2.5 mg tablet Protocol Text: Adjustment Start Date: Monday12/22/23 INR Value: 3.1 INR Date: 12/22/23 Recheck Date: 12/29/23 Additional Instructions: EAT AVOCADO TODAY OR TOMORROW TO HELP LOWER THE INR AND BLUEBERRIES, CHICKEN AND WATER warfarin 2.5 mg tablet 2.5 mg PO SUTUWETHSA Protocol: Dose Management Condition: Monday (Week One) Dose/Route: 2.5 mg Instruction: 1 x 2.5 mg tablet Condition: Monday Dose/Route: 5 mg Instruction: 1 x 5 mg tablet Condition: Monday Dose/Route: 2.5 mg Instruction: 1 x 2.5 mg tablet Condition: Monday Dose/Route: 2.5 mg Instruction: 1 x 2.5 mg tablet Condition: Dose/Route: 2.5 mg Instruction: 1 x 2.5 mg tablet Condition: Monday Dose/Route: 5 mg Instruction: 1 x 5 mg tablet Condition: Monday Dose/Route: 2.5 mg Instruction: 1 x 2.5 mg tablet Condition: Monday (Week Two) Dose/Route: 2.5 mg Instruction: 1 x 2.5 mg tablet Condition: Monday Dose/Route: 5 mg Instruction: 1 x 5 mg tablet Condition: Monday Dose/Route: 2.5 mg Instruction: 1 x 2.5 mg tablet Condition: Monday Dose/Route: 2.5 mg Instruction: 1 x 2.5 mg tablet Condition: Dose/Route: 2.5 mg Instruction: 1 x 2.5 mg tablet Condition: Monday Dose/Route: 5 mg Instruction: 1 x 5 mg tablet Condition: Monday Dose/Route: 2.5 mg Instruction: 1 x 2.5 mg tablet Protocol Text: Adjustment Start Date: Monday12/22/23 INR Value: 3.1 INR Date: 12/22/23 Recheck Date: 12/29/23 Additional Instructions: EAT AVOCADO TODAY OR TOMORROW TO HELP LOWER THE INR AND BLUEBERRIES, CHICKEN AND WATER Discharge Orders: Discharge Order (Routine); Ordered 01/01/24 Ordered By: Duke Panchal Diet: Advance to usual diet Activity on Discharge: As tolerated Stand Alone Forms: Patient Portal Discharge page Print Language: Syriac Care Plan Goals: Continue all meds as outlined on discharge summary Health Concerns: Complete course of doxycycline and Ceftin as ordered Plan of Treatment: Further plans as per receiving facility Assessment: See discharge summary
--- NOTE | 2024-01-01 14:53 | MHC.CM.PN ---
Insurance auth [facility], [employer] transport auth received (run # [id number]). This CM met with pt with the assistance of a applied behavior science specialist to give pt the Second IMM today 12/31, and let him know of his discharge, pt aware and in agreement with plan.
[2024-01-01 15:49] LABS: Glucose, Whole Blood 146 mg/dL (60-115)
[2024-01-01 16:00] VITALS: BP 123/65; PULSE 107; RESP 17; TEMP 36.1; O2SAT 97
--- NOTE | 2024-01-01 16:13 | P.CDIM_ITS ---
PROVIDER RESPONSE TEXT: To clarify, the appropriate diagnosis supported by the clinical indicators: Paroxysmal atrial fibrillation QUERY TEXT: PHYSICIAN'S DOCUMENTATION REQUEST Date of Query: 01/01/2024 08:22 AM EDT Patient Name: Yousif Mcintosh Admit Date: 12/27/2023 Dear Duke Panchal DO, A review of the medical record indicates additional documentation may be needed. Please review below and update the documentation accordingly. Clinical Indicators: Progress notes: Chronic atrial fibrillation Continue warfarin once INR = <3 Continue metoprolol succinate If possible, please provide further specificity regarding atrial fibrillation, such as: Paroxysmal atrial fibrillation Persistent atrial fibrillation Long lasting persistent atrial fibrillation Permanent Atrial fibrillation Other (explain) Clinically unable to determine (explain) Thank you, Beverly Plummer, CCS, CDIS Use of terms such as suspected, likely, concern for, or probable (associated with a specific diagnosi s that is being evaluated, monitored, or treated as if it exists) are acceptable and can be coded in the inpatient se tting, when documented at the time of discharge. Please use your independent medical judgment in providing your response. THIS QUERY IS PART OF THE PERMANENT MEDICAL RECORD
== END 2024-01-01 18:18 | DRG 177 ==
LOC: HO.ED 18:14 → HO.EDOVER 18:47 → HO.IMC 23:28
PROVIDERS: Admitting Provider Family Medicine; Emergency Provider Emergency Medicine; PCP Internal Medicine; Visit Provider Hospitalist
DX: U07.1 COVID-19 (principal); J12.82 Pneumonia due to coronavirus disease 2019; J15.9 Unspecified bacterial pneumonia; N17.9 Acute kidney failure, unspecified; E27.40 Unspecified adrenocortical insufficiency; L89.156 Pressure-induced deep tissue damage of sacral region; M10.9 Gout, unspecified; I12.9 Hypertensive chronic kidney disease with stage 1 through stage 4 chronic kidney disease, or unspecified chronic kidney disease; E11.22 Type 2 diabetes mellitus with diabetic chronic kidney disease; N40.0 Benign prostatic hyperplasia without lower urinary tract symptoms; G40.909 Epilepsy, unspecified, not intractable, without status epilepticus; N18.30 Chronic kidney disease, stage 3 unspecified; I48.0 Paroxysmal atrial fibrillation; D50.9 Iron deficiency anemia, unspecified; Z86.73 Personal history of transient ischemic attack (TIA), and cerebral infarction without residual deficits; Z79.01 Long term (current) use of anticoagulants; Z79.82 Long term (current) use of aspirin; Z79.84 Long term (current) use of oral hypoglycemic drugs; Z79.899 Other long term (current) drug therapy
CPT/HCPCS: 0241U; 36415; 71046; 80048; 80076; 81001; 82570; 82947; 83605; 84145; 84300; 85025; 85027; 85610; 86140; 87040; 87449; 87899; 93005; 97162; 99285; J0248; J0456; J0696

== ENCOUNTER → 2023-12-27 18:38 | Outpatient (BNV) | payer OTHER, SELFPAY | PROVIDERS: Admitting Provider Family Medicine; Emergency Provider Emergency Medicine; Visit Provider Family Medicine | DX: U07.1 COVID-19 (principal); J18.9 Pneumonia, unspecified organism | CPT/HCPCS: 99223; 99231; 99232; 99239 ==

== ENCOUNTER → 2024-01-26 12:21 | Outpatient (BNVA) | payer OTHER, SELFPAY | PROVIDERS: PCP Internal Medicine; Visit Provider Internal Medicine ==

== ENCOUNTER 2024-01-30 12:41 | Outpatient (AMB) | payer OTHER, SELFPAY ==
[2024-01-30 13:04] VITALS: PULSE 61; O2SAT 96
--- NOTE | 2024-01-30 13:04 | MHC.PC.OV ---
Vital Signs 01/30/24 13:04 Height 6 ft 2 in BMI Reason not done Patient refused/unable Blood Pressure Location Lt brachial Position Sitting Pulse 61 Pulse Source Pulse Oximeter Pulse Oximetry (%) 96 Oxygen Delivery Method Room Air Intake Visit Reasons: annual exam Intake Note: Patient is here today for a physical. Assistant Manager/Embalmer Required: No Accompanied by: Self / Same As Patient Allergies No Known Allergies Allergy (Verified 01/30/24 14:07) Medication List - Last Reconciled 01/30/24 by Poonam Mejia MD [adult diapers pull-ups As directed] allopurinol 100 mg PO DAILY aspirin 81 mg PO DAILY 3 months atorvastatin 40 mg PO BEDTIME 90 days blood sugar diagnostic ([employer] Ultra Test strips) test once per day blood-glucose meter ([employer] Ultra2 Meter) test once per day empagliflozin (Jardiance) 10 mg PO DAILY 90 days famotidine 20 mg PO DAILY PRN 30 days ferrous sulfate 325 mg PO DAILY 60 days fluoxetine 20 mg PO DAILY [gloves As directed] hydrocortisone (Cortef) 10 mg PO DAILY hydrocortisone (Cortef) 10 mg (2 x 5 mg) PO DAILY [incontinent wipes As directed] lancets ([place] [employer] Safety Lancet) test once per day levetiracetam 750 mg PO BID 3 months magnesium oxide 500 mg (2 x 250 mg magnesium) PO TID 30 days metformin 500 mg PO DAILY 90 days metoprolol succinate ER 12.5 mg (1/2 x 25 mg) PO DAILY mirtazapine 15 mg PO BEDTIME 3 months nirmatrelvir-ritonavir 300 mg (150 mg x 2)-100 mg (Paxlovid) 3 ea PO PER PKG DIR 5 days [power wheelchair As directed] tamsulosin 0.4 mg PO DAILY 3 months warfarin 5 mg See Protocol PO MOFR warfarin 2.5 mg See Protocol PO SUTUWETHSA Tobacco use date assessed: 05/09/23 Fall risk assessment: No Falls in past year Last assessed Fall Risk: 01/30/24 Dental Screening Dental Screen Date: 01/30/24 HPI HPI Comments History of Present Illness Details This is a 79-year-old male with congestive heart failure, atrial fibrillation, mild major depression, seizures and diabetes mellitus type 2 that comes today accompanied by MICROFILM TECHNICIAN for hospital discharge follow-up with rehab discharge date January 22 06/06/2023. He was hospitalized last month due to COVID pneumonia requiring rehab after discharge. Still has some generalized weakness and is in a wheelchair. Will benefit from physical therapy and occupational therapy. Congestive heart failure and atrial fibrillation are follow by cardiology but patient admits not being compliant and he has multiple no shows with Cardiology. Depression stable with SSRIs. Has not had a seizure in over 3 months and does not have a neurologist. I will refer him to Neurology. Also had episodes of gross hematuria that resolved but I will refer him to Urology. [facility] Medical History (Updated 01/30/24 @ 16:22 by Poonam Mejia MD) Renal insufficiency CKD (chronic kidney disease) Physical exam Iron deficiency anemia Psoriasis Stroke Seizures Dyslipidemia BPH (benign prostatic hyperplasia) Hypovitaminosis D Gout Abnormal laboratory test Hypertension Diabetes Surgical History History of open reduction and internal fixation (ORIF) procedure History of kidney stones Family History Mother Heart problem Father Bone cancer Social History Household Members: None Housing: Apartment Do you presently have visiting nurse or other home services: Yes Unable to assess alcohol history related to: Unknown Alcohol intake: never Patient Tobacco Use Status: Never used Tobacco e-Cigarette/Vaping Use: Never Used Second Hand Smoke Exposure: No Advance Directives Date on File: 10/17/22 service: No Current occupational status: disabled Cognitive needs: Yes (wheelchair) Hearing needs: No Vision needs: No Questionnaire PHQ-9 Over the last 2 weeks, how often have you been bothered by any of the following problems? 1. Little interest or pleasure in doing things: several days 2. Feeling down, depressed, or hopeless: not at all 3. Trouble falling or staying asleep, or sleeping too much: not at all 4. Feeling tired or having little energy: several days 5. Poor appetite or overeating: several days 6. Feeling bad about yourself - or that you are a failure or have let yourself or your family down: not at all 7. Trouble concentrating on things, such as reading the newspaper or watching television: several days 8. Moving or speaking so slowly that other people could have noticed. Or the opposite - being so fidgety or restless that you have been moving around a lot more than usual: several days 9. Thoughts that you would be better off or of hurting yourself in some way: not at all Total score: 5 Depression Screening Interpretation: Positive Depression Screening Follow-up: Existing condition and Follow-up Visit Requested Depression Screening Done: Yes 42148 - PHQ-9 Billing: Yes Source: Developed by Drs. Lalito Robbins, Laura Cedeno, Quang Alexander and colleagues, with an educational tanya from [employer]. Thrive Questionnaire Date Thrive assessed: 01/30/24 I am a: Patient What is your living situation today?: I have a steady place to live Within the past 12 months, did the food you bought not last and you didn't have the money to get more?: I choose not to answer this question Within the past 12 months, did you worry whether your food would run out before you got money to buy more?: I choose not to answer this question Do you have trouble paying for medicines?: No Do you have trouble getting transportation to medical appointments?: No Do you have trouble paying your heating and electricity bill?: No Do you have trouble taking care of your child, family member or friend?: No Do you have trouble with day-to-day activities such as bathing, preparing meals, shopping, managing finances, etc.?: Yes Are you currently unemployed and looking for a job?: I choose not to answer this question Are you interested in more education?: I choose not to answer this question Please select the resources that you would like help with: None Currently or been in a relationship where the following occur: I choose not to answer THRIVE Score: 0 AUDIT C Alcohol Use Questionnaire (AUDIT-C) 1. How often do you have a drink containing alcohol?: Never 3. How often do you have six or more drinks on one occasion?: Never Total Score: 0 Score Reviewed/Action Taken: No KERRY-7 AMB Questionnaire KERRY-7 Date KERRY - 7 assessed: 01/30/24 Feeling nervous, anxious, or on edge: 0 = Not at all Not being able to stop or control worryin = Not at all Worrying too much about different things: 0 = Not at all Trouble relaxin = Not at all Being so restless that it is hard to sit still: 0 = Not at all Becoming easily annoyed or irritable: 0 = Not at all Feeling afraid as if something awful might happen: 0 = Not at all Total KERRY-7 score (0-4 normal; 5-9 mild; 10-14 moderate; 15-21 severe): 0 Source: Developed by Drs. Lalito Robbins, Laura Cedeno, Quang Alexander and colleagues, with an educational tanya from [employer]. KERRY-7 Assessment Billing KERRY-7 Assessment Tool: KERRY-7 Assessment 14007 Review of Systems Const All systems reviewed & are unremarkable except as noted in HPI and below Card Denies chest pain at rest, Denies chest pain with activity, Denies edema, Denies irregular heart rhythm, Denies claudication, Denies dyspnea, Denies dyspnea on exertion, Denies orthopnea, Denies paroxysmal nocturnal dyspnea and Denies slow heart rate Resp Denies cough, Denies dyspnea and Denies dyspnea on exertion GI Denies abdominal pain, Denies change in bowel habits, Denies excessive flatus, Denies nausea and Denies vomiting Physical exam (Primary Care) Vital Signs: Last Vital Signs Pulse 61 01/30/24 13:04 Pulse Ox 96 01/30/24 13:04 Oxygen Delivery Method Room Air 01/30/24 13:04 Tobacco/Smoking Status: Tobacco use Status Tobacco use date assessed 05/09/23 01/30/24 13:06 Patient Tobacco Use Status Never used Tobacco 01/30/24 13:06 e-Cigarette/Vaping Use Never Used 01/30/24 13:06 PHQ-9: PHQ-9 Score PHQ-9: Total score 5 01/30/24 14:15 Depression Screening Interpretation: Positive Depression Screening Follow-up: Existing condition and Follow-up Visit Requested Thrive Assessment: Date of Thrive Assessment Date Thrive assessed 01/30/24 01/30/24 13:06 Currently or been in a relationship where the following occur: I choose not to answer Const General: ill appearing chronically Limitations: wheelchair Resp Effort & Inspection: normal respiratory effort Auscultation: clear to auscultation bilaterally Cardio Jugular venous distension: no JVD Rate: regular rate Rhythm: regular rhythm Heart sounds: S1 normal heart sound present and S2 normal heart sound present Neuro Motor exam (neuro): Abnormal motor strength present (right 4/5, left 5/5) Results AMB Hemoglobin A1c AMB Hemoglobin A1c 7.0 % Last Edit by TAWANA Adams on 01/30/24 14:16 Results Reviewed Results Reviewed: Laboratory Last Values Hgb A1c (Clinic) 7.0 % (4.0-6.0) H 01/30/24 14:16 Coding Level of Care Code Est Pt Level 4 (56138) Complex EM visit Add On G2211 Diagnoses Hospital discharge follow-up Z09 Longstanding persistent atrial fibrillation I48.11 Atrial fibrillation type: longstanding persistent Mild major depression F32.0 CHF (congestive heart failure) I50.9 Seizures R56.9 Type 2 diabetes mellitus with other specified complication, unspecified whether care home insulin use E11.69 Diabetes mellitus type: type 2 Diabetes mellitus care home insulin use: unspecified supervisor intermediates insulin use status Diabetes mellitus complication status: with other specified complication Gross hematuria R31.0 Hematuria type: gross Additional Codes KERRY-7 Assessment Billing - KERRY-7 Assessment Tool: KERRY-7 Assessment 83476 ([id number]) Time Spent (min) 24 Assessment & Plan Assessment & Plan (1) Hospital discharge follow-up: Code(s): Z09 - Encounter for follow-up examination after completed treatment for conditions other than malignant neoplasm Category: Medical Plan: Hospitalized last month due to COVID pneumonia and was discharged from rehab 01/23/2024. Still with generalized weakness and will benefit from physical therapy and occupational therapy. (2) Atrial fibrillation: Code(s): I48.91 - Unspecified atrial fibrillation Category: Medical Qualifiers: Atrial fibrillation type: longstanding persistent Qualified Code(s): I48.11 - Longstanding persistent atrial fibrillation Plan: Continue metoprolol. Follow-up with Cardiology. The goal is heart rate control. (3) Mild major depression: Code(s): F32.0 - Major depressive disorder, single episode, mild Category: Medical Plan: Continue SSRIs. (4) CHF (congestive heart failure): Code(s): I50.9 - Heart failure, unspecified Category: Medical Plan: Continue diuretics as needed. Patient euvolemic. The goal is to not gain 5 lb in a week. (5) Seizures: Code(s): R56.9 - Unspecified convulsions Category: Medical Plan: Continue Keppra. Referred to neurology. (6) Diabetes: Code(s): E11.9 - Type 2 diabetes mellitus without complications Category: Medical Qualifiers: Diabetes mellitus type: type 2 Diabetes mellitus care home insulin use: unspecified care home insulin use status Diabetes mellitus complication status: with other specified complication Qualified Code(s): E11.69 - Type 2 diabetes mellitus with other specified complication Plan: Continue metformin and Jardiance. A1c goal is equal or less than 7%. (7) Hematuria: Code(s): R31.9 - Hematuria, unspecified Category: Medical Qualifiers: Hematuria type: gross Qualified Code(s): R31.0 - Gross hematuria Plan: Referred to urology. Orders: Orders AMB Hemoglobin A1c Today E11.69 - Type 2 diabetes mellitus with other specified complication Complete Blood Count Auto Diff 4 Months D64.9 - Anemia, unspecified Lipid Panel 4 Months E78.5 - Hyperlipidemia, unspecified Magnesium 4 Months E61.2 - Magnesium deficiency Comprehensive [place]. Panel Fast 4 Months E11.69 - Type 2 diabetes mellitus with other specified complication Uric Acid 4 Months M10.9 - Gout, unspecified NT-proBNP 4 Months I50.9 - Heart failure, unspecified IRON PROFILE 4 Months D64.9 - Anemia, unspecified Vitamin D 25-OH Total 4 Months E55.9 - Vitamin D deficiency, unspecified Vitamin B12 and Folate 4 Months E53.8 - Deficiency of other specified B group vitamins Microalbumin, Random (w Creat) 4 Months R80.9 - Proteinuria, unspecified Referrals Neurology Referral R56.9 - Unspecified convulsions Urology Referral R31.0 - Gross hematuria, R32 - Unspecified urinary incontinence Medications: New albuterol sulfate 2.5 mg (3 mL) inhalation Q6H PRN 75 mL 1RF bronchospasm 30 days nebulizers (VixOne Nebulizer-Adult Mask) As directed 1 ea 0RF
== END 2024-01-30 14:18 | disposition home or self-care (01) ==
PROVIDERS: PCP Internal Medicine; Visit Provider Internal Medicine
DX: I48.11 Longstanding persistent atrial fibrillation (principal); F32.0 Major depressive disorder, single episode, mild; I50.9 Heart failure, unspecified; R56.9 Unspecified convulsions; E11.69 Type 2 diabetes mellitus with other specified complication; Z09 Encounter for follow-up examination after completed treatment for conditions other than malignant neoplasm; R31.0 Gross hematuria

== ENCOUNTER → 2024-01-30 12:41 | Outpatient (BNVA) | payer OTHER, SELFPAY | PROVIDERS: PCP Internal Medicine; Visit Provider Internal Medicine | DX: Z09 Encounter for follow-up examination after completed treatment for conditions other than malignant neoplasm (principal); I48.11 Longstanding persistent atrial fibrillation; F32.0 Major depressive disorder, single episode, mild; I50.9 Heart failure, unspecified; R56.9 Unspecified convulsions; E11.69 Type 2 diabetes mellitus with other specified complication; R31.0 Gross hematuria | CPT/HCPCS: 83036; 96127; 99212 ==

== ENCOUNTER → 2024-01-31 13:04 | Outpatient (BNVA) | payer OTHER, SELFPAY | PROVIDERS: PCP Internal Medicine; Visit Provider Internal Medicine ==

== ENCOUNTER → 2024-02-02 13:45 | Outpatient (BNVA) | payer OTHER, SELFPAY | PROVIDERS: PCP Internal Medicine; Visit Provider Internal Medicine ==

== ENCOUNTER → 2024-02-07 11:47 | Outpatient (BNVA) | payer OTHER, SELFPAY | PROVIDERS: PCP Internal Medicine; Visit Provider Internal Medicine ==

== ENCOUNTER 2024-02-11 14:14 | Emergency (ER) | payer OTHER, SELFPAY ==
[2024-02-11 14:25] VITALS: BP 132/71; BP 140/98; PULSE 66; PULSE 85; RESP 18; TEMP 36.9; O2SAT 95; O2SAT 96; BMI 36.8
[2024-02-11 14:30] LABS: Glucose, Whole Blood 106 mg/dL (60-115)
--- NOTE | 2024-02-11 14:35 | ED.MALEGU ---
HPI - Male Genitourinary General Chief complaint: Urogenital-Male Stated complaint: LOWER ABD PAIN Time Seen by Provider: 02/11/24 14:34 Source: patient and EMS Mode of arrival: EMS Limitations: no limitations History of Present Illness ED Provider: Leah Bruno PA-C HPI Narrative: 79-year-old male with a PMH of CHF, afib on warfarin, BPH on tamsulosin, CKD, stroke with permanent deficit, diabetes, dyslipidemia, and HTN presents to the ED today with a chief complaint of urinary incontinence and retention x 1 day. He last voided yesterday 02/09 and reports incomplete bladder emptying. Patient endorses intermittent hematuria, increased urinary frequency, increased urgency, incomplete bladder emptying and weak urine stream at baseline. [place] [facility] [place] of his B[place]. Last seen 12/2022. Today he has the sensation that he needs to urinate, but he is unable to. Patient endorses some mild lower abdominal discomfort and dribbling of urine. Denies recent prolonged catheterization. Denies fever, chills, [place], N/V, SOB or chest pain. He is cared for by an at home [employer]. Relieving factors: none Exacerbating factors: none Associated symptoms: Reports urinary retention and blood in urine Related Data Home Medications ?Medication ?Instructions ?Recorded ?Confirmed warfarin 2.5 mg tablet 2.5 mg PO SUTUWETHSA 11/01/23 02/07/24 warfarin 5 mg tablet 5 mg PO MOFR 11/01/23 02/07/24 magnesium PO TID 01/30/24 02/02/24 Previous Rx's ?Medication ?Instructions ?Recorded power wheelchair #1 ea 02/27/21 blood sugar diagnostic (Terres et TerroirsTouch #100 ea 01/11/23 Ultra Test strips) blood-glucose meter (OneTouch #1 ea 01/11/23 Ultra2 Meter) lancets 30 gauge (Onetouch Delica #100 ea 01/11/23 Safety Lancet) adult diapers pull-ups #240 ea 09/05/23 gloves #200 ea 09/05/23 incontinent wipes #200 ea 09/05/23 atorvastatin 40 mg tablet 40 mg PO BEDTIME 90 days #90 tabs 10/11/23 empagliflozin 10 mg tablet 10 mg PO DAILY 90 days #90 tabs 10/11/23 (Jardiance) metoprolol succinate 25 mg 12.5 mg (1/2 x 25 mg) PO DAILY #90 10/11/23 tablet,extended release 24 hr tabs allopurinol 100 mg tablet 100 mg PO DAILY #90 tabs 10/17/23 ferrous sulfate 325 mg (65 mg 325 mg PO DAILY 60 days #60 tabs 10/17/23 iron) tablet metformin 500 mg tablet 500 mg PO DAILY 90 days #90 tabs 11/10/23 mirtazapine 15 mg tablet 15 mg PO BEDTIME 3 months #90 tabs 11/11/23 aspirin 81 mg tablet,delayed 81 mg PO DAILY 3 months #90 tabs 12/13/23 release levetiracetam 750 mg tablet 750 mg PO BID 3 months #180 tabs 12/13/23 tamsulosin 0.4 mg capsule 0.4 mg PO DAILY 3 months #90 caps 12/13/23 nirmatrelvir 300 mg (150 mg 3 ea PO PER PKG DIR 5 days #30 ea 12/26/23 x2)-ritonavir 100 mg tablet,dose pack (Paxlovid) hydrocortisone 10 mg tablet 10 mg PO DAILY #30 tabs 01/01/24 (Cortef) hydrocortisone 5 mg tablet (Cortef) 10 mg (2 x 5 mg) PO DAILY #120 tabs 01/17/24 albuterol sulfate 2.5 mg/3 mL 2.5 mg (3 mL) inhalation Q6H PRN 01/30/24 (0.083 %) solution for nebulization bronchospasm 30 days #75 mL fluoxetine 20 mg capsule 40 mg (2 x 20 mg) PO DAILY #90 caps 01/30/24 underpads (Bed Underpads) #150 ea 01/30/24 wipes #200 ea 01/30/24 nebulizers (VixOne Nebulizer-Adult #1 ea 01/31/24 Mask) famotidine 20 mg tablet 20 mg PO DAILY PRN heartburn 30 02/11/24 days #30 tabs Allergies Allergy/AdvReac Type Severity Reaction Status Date / Time No Known Allergies Allergy Verified 02/11/24 14:28 Review of Systems Constitutional: Constitutional: Reports no additional constitutional complaints, Denies chills, Denies fever(s), Denies headache(s) and Denies night sweats Eyes: Eyes: Reports no additional eye complaints, Denies blurry vision, Denies change in vision, Denies diplopia, Denies eye discharge, Denies loss of vision and Denies eye pain ENT: Denies dizziness and Denies headache(s) Cardiovascular: Cardiovascular: Reports no additional cardiovascular complaints, Denies chest pain, Denies lightheadedness, Denies Loss of Consciousness and Denies dyspnea Respiratory: Respiratory: Reports no additional respiratory complaints, Denies cough and Denies dyspnea Gastrointestinal: Gastrointestinal: Reports no additional gastrointestinal complaints, Reports abdominal pain (lower abd discomfort), Denies melena, Denies hematochezia, Denies change in bowel habits, Denies change in stool character, Denies nausea and Denies vomiting Genitourinary: Genitourinary: Reports no additional male genitourinary complaints, Reports hematuria, Reports oliguria, Reports difficulty urinating, Denies dysuria, Reports urinary frequency, Reports urinary incontinence and Reports urinary urgency Musculoskeletal: Musculoskeletal: Reports no additional musculoskeletal complaints, Denies numbness and Denies tingling Neurologic: Denies dizziness, Denies headache(s), Denies loss of vision, Denies numbness and Denies tingling Psychiatric: Psychiatric: Reports no additional psychiatric complaints Endocrine: Endocrine: Reports no additional endocrine complaints Hematologic/Lymphatic: Hematologic/Lymphatic: Reports no additional hematologic/lymphatic complaints Allergic/Immunologic: Allergic/Immunologic: Reports no additional allergic/immunologic complaints [facility] Past Medical History Attestation statement: The following information was validated with the patient. Source: old records reviewed and nursing notes reviewed Medical History Renal insufficiency CKD (chronic kidney disease) Physical exam Iron deficiency anemia Psoriasis Stroke Seizures Dyslipidemia BPH (benign prostatic hyperplasia) Hypovitaminosis D Gout Abnormal laboratory test Hypertension Diabetes Surgical History History of open reduction and internal fixation (ORIF) procedure History of kidney stones Family History Family History Mother Heart problem Father Bone cancer Social History Social History Household Members: None Housing: Apartment Do you presently have visiting nurse or other home services: Yes Unable to assess alcohol history related to: Unknown Alcohol intake: never Patient Tobacco Use Status: Never used Tobacco Smoked in Last 30 Days: No e-Cigarette/Vaping Use: Never Used Second Hand Smoke Exposure: No Use of substances other than those prescribed or required for medical reasons: No Advance Directives: No Advance Directives Information Provided: No Advance Directives Date on File: 10/17/22 service: No Current occupational status: disabled Cognitive needs: Yes (wheelchair) Hearing needs: No Vision needs: No Physical Exam Vital Signs: Vital Signs: Last Vital Signs Temp 98.5 F 02/11/24 14:25 Pulse 66 02/11/24 14:25 Resp 18 02/11/24 14:25 BP 132/71 02/11/24 14:25 Pulse Ox 96 02/11/24 14:25 O2 Del Method Room Air 02/11/24 14:25 BMI result Body Mass Index 36.8 Const: General: cooperative, no acute distress, alert and awake Nutritional Appearance: well nourished Orientation/consciousness: patient oriented x3 Limitations: no limitations HEENT: Head: Yes normal to inspection and Yes atraumatic Ears: hearing grossly normal bilaterally and external ears normal General nose exam: Normal external nose present, no nasal discharge noted and no epistaxis Face and sinus: Yes normal facial exam, No abrasion and No laceration Mouth: Normal oral and palatal mucosa present, no drooling and no muffled voice Eyes: General: appearance normal, both eyes and all related structures Periorbital: periorbital findings normal Eyelids: Yes eyelids normal Conjunctivae: conjunctivae normal Pupils: Equal, round and reactive pupils present EOM: EOMs intact bilaterally Neck: Neck: Yes normal visual inspection, Yes full ROM and Yes no lymphadenopathy Chest: Chest palpation & inspection: normal inspection of the chest Resp: Effort & Inspection: normal respiratory effort and able to speak in complete sentences Cardio: Rate: regular rate Rhythm: regular rhythm Heart sounds: no gallops, no murmurs and no rubs GI: Inspection: Yes normal to inspection and No distended Palpation (GI): Soft to palpation, not firm, nontender, no guarding and not rigid Auscultation: normal bowel sounds : General: Yes deferred Neuro: General: patient oriented x3 and moves all extremities Cranial nerves: Yes Equal, round and reactive pupils present Cognition (Neuro): normal cognition Extrem: General: Yes normal to inspection, Yes full ROM and Yes capillary refill normal Psych: Appearance: grossly normal Mental Status: mental status grossly normal Affect: normal affect Attitude: cooperative Thought process: Normal thought process present Thought content: Normal thought content present Insight: Good insight present (Psych) Medications Administered Discontinued Medications Generic Name Dose Route Start Last Admin Trade Name [place] PRN Reason Stop Dose Admin Lidocaine HCl 10 ml 02/11/24 15:41 02/11/24 16:05 Lidocaine Hcl 2 % Urojet 10 Ml Jel.Pf.[place] TOPICAL 02/11/24 15:42 Not Given ONCE ONE Medical Decision Making Medical Decision Making MDM Narrative: Patient is a 79 year old assigned male at with a history of DM, HTN, stroke with permanent deficit, CKD, atrial fib on warfarin, CHF, and BPH presenting to the emergency department today with urinary dribbling and inability to complete bladder emptying. Patient's physical exam was unremarkable. Patient's blood work was unremarkable. Patient's urine showed no acute process. Patient's bladder scan showed >200ml of urine in his bladder. I explained my physical exam findings as well as all test results to the patient. I answered all questions asked by the patient. I gave the patient the option of performing a straight catheterization for urine testing or placing a goldman catheter. Patient stated that he would rather have a goldman catheter placed and follow up with urology on an outpatient basis. I stressed the importance of the patient taking his medication as directed (either prescribed or as the over the counter packaging recommends). I stressed the importance of the patient following up with his primary care provider and his urologist. I stressed the importance of the patient returning to the emergency department immediately if his symptoms were to worsen or if he were to develop any dizziness, shortness of breath, difficulty breathing, chest pain, blurry vision, loss of vision, nausea, vomiting, abdominal pain, fever, chills, back pain, or any other complaints. Patient verbalized agreement and understanding with this treatment plan and discharge. Differential Diagnosis Differential Diagnoses: The differential diagnosis associated with the presentation includes Urinary retention UTI Admission/Observation Consideration of admission/observation: Escalation of care including admission/observation considered Patient would have been admitted to the hospital had his work up had any findings where hospital admission was appropriate and his clinical presentation warranted hospital admission. Lab Data [facility] Lab Attestation statement: I reviewed the patient's lab results. My interpretation of these results are in the [facility] Rationale portion of this note. 10/27/24 15:00 02/11/24 15:00 Labs: Lab Results 02/11/24 02/11/24 02/11/24 Range/Units 14:27 15:00 15:47 WBC 7.4 (4.8-10.8) X10*3/uL RBC 4.32 L (4.60-5.80) X10*6/uL Hgb 11.7 L (14.0-18.0) g/dl Hct 36.1 L (42.0-52.0) % MCV 83.6 (80.0-98.0) fL MCH 27.1 (27.0-33.0) pg MCHC 32.4 (31.0-36.0) g/dl RDW 15.9 (11.0-16.0) % Plt Count 169 (160-400) X10*3/uL MPV 11.2 (9.4-12.4) fL Immature Gran % (Auto) 0.4 (0.0-0.4) % Neut % (Auto) 73.1 H (45-73) % Lymph % (Auto) 13.6 L (20-40) % [facility] % (Auto) 5.1 (2-11) % Eos % (Auto) 7.0 H (0-4) % Baso % (Auto) 0.8 (0-2) % Lymph # (Auto) 1.0 L (1.2-4.9) X10*3/uL [facility] # (Auto) 0.4 (0.1-1.2) X10*3/uL Eos # (Auto) 0.5 H (0.0-0.4) X10*3/uL Baso # (Auto) 0.1 (0.0-0.2) X10*3/uL Abs Immat Gran (auto) 0.03 (0.00-0.03) X10*3/uL Absolute Neuts (auto) 5.4 (2.0-8.3) x10*3/uL Absolute Nucleated RBC 0.000 (0.0-0.012) X10*3/uL Nucleated RBC % (auto) 0.0 (0.0-0.2) /100WBC Sodium 140 (135-145) mmol/L Potassium 4.6 (3.3-5.1) mmol/L Chloride 107 (96-108) mmol/L Carbon Dioxide 25 (22-29) mmol/L Anion Gap 13 (12-20) BUN 25 H (9-16) mg/dL Creatinine 1.67 H (0.5-1.4) mg/dL Estim Creat Clear Calc 41.0 Estimated GFR 40 POC Glucose 106 (60-115) mg/dL Random Glucose 101 (60-115) mg/dL Calcium 8.9 D (8.4-10.2) mg/dL Magnesium 1.8 (1.6-2.6) mg/dL Total Bilirubin 0.5 (0.0-1.0) mg/dL AST 26 (5-37) U/L ALT 10 (0-40) U/L Alkaline Phosphatase 157 H (39-117) U/L Total Protein 6.4 L (6.5-8.0) g/dL Albumin 3.4 L (3.5-5.0) g/dL Urine Color Yellow Urine Appearance Clear Urine pH 6.0 (5.0-9.0) Ur Specific [place] 1.015 (1.005-1.025) Urine Protein Negative (Neg-Trace) mg/dL Urine Glucose (UA) >=1000 H (Negative) mg/dL Urine Ketones Negative (Negative) mg/dL Urine Blood Moderate (2+) H (Negative) Urine Nitrite Negative (Negative) Ur Leukocyte Esterase Negative (Negative) Independent Historian Clinical information obtained from an independent historian. History obtained from or confirmed by: EMS (EMS provided additional history and confirmed the history provided by the patient.) Tests considered The following testing was considered but not selected: I considered obtaining a CT of the abdomen/pelvis however, the patient's current work up and clinical presentation did not warrant this. Chronic Conditions Patient?s care impacted by: Diabetes Discharge Plan Discharge Clinical Impression: Acute urinary retention Patient Disposition: Home, Self-Care Instructions: Urinary Retention in Men (ED) Additional Instructions: Per our discussion, you opted to have a goldman catheter placed. Please follow up with the urologist about this. Follow up with your primary care provider. Return to the emergency department immediately if your symptoms worsen or if you develop any dizziness, shortness of breath, difficulty breathing, chest pain, blurry vision, loss of vision, nausea, vomiting, abdominal pain, fever, chills, back pain, or any other complaints. Seg?n nuestra conversaci?n, barahona optado por que le coloquen un cat?ter de Goldman. P?ngase en contacto con el ur?logo. Consulte a alexander m?dico de cabecera. Vuelva al servicio de urgencias inmediatamente si dunia s?ntomas empeoran o si presenta mareos, falta de aliento, dificultad para respirar, dolor tor?cico, visi?n borrosa, p?rdida de visi?n, n?useas, v?mitos, dolor abdominal, fiebre, escalofr?os, dolor de espalda o cualquier otra molestia. Prescriptions: No Action (DME) power wheelchair See Rx Instructions .Route .MEDSUPPLY Qty: 1 0RF Rx Instructions: As directed (DME) blood-glucose meter [OneTouch Ultra2 Meter] Misc See Rx Instructions .Route Qty: 1 0RF Rx Instructions: test once per day (DME) OneTouch Ultra Test Strip See Rx Instructions .Route Qty: 100 4RF Rx Instructions: test once per day (DME) lancets [Onetouch Delica Safety Lancet] 30 gauge misc See Rx Instructions .Route Qty: 100 4RF Rx Instructions: test once per day (DME) adult diapers pull-ups XL See Rx Instructions .Route .MEDSUPPLY Qty: 240 11RF Rx Instructions: As directed (DME) gloves Medium See Rx Instructions .Route .MEDSUPPLY Qty: 200 0RF Rx Instructions: As directed (DME) incontinent wipes See Rx Instructions .Route .MEDSUPPLY Qty: 200 0RF Rx Instructions: As directed atorvastatin 40 mg tablet 40 mg PO BEDTIME 90 Days Qty: 90 3RF Jardiance 10 mg tablet 10 mg PO DAILY 90 Days Qty: 90 1RF metoprolol succinate 25 mg tablet extended release 24 hr 12.5 mg PO DAILY Qty: 90 0RF ferrous sulfate 325 mg (65 mg iron) tablet 325 mg PO DAILY 60 Days Qty: 60 6RF allopurinol 100 mg tablet 100 mg PO DAILY Qty: 90 6RF metformin 500 mg tablet 500 mg PO DAILY 90 Days Qty: 90 1RF mirtazapine 15 mg tablet 15 mg PO BEDTIME 90 Days Qty: 90 3RF aspirin 81 mg tablet,delayed release (DR/EC) 81 mg PO DAILY 90 Days Qty: 90 0RF tamsulosin 0.4 mg capsule 0.4 mg PO DAILY 90 Days Qty: 90 0RF levetiracetam 750 mg tablet 750 mg PO BID 90 Days Qty: 180 0RF Paxlovid 300 mg (150 mg x 2)-100 mg tablets,dose pack 3 ea PO PER PKG DIR 5 Days Qty: 30 0RF hydrocortisone [Cortef] 5 mg tablet 10 mg PO DAILY Qty: 120 0RF fluoxetine 20 mg capsule 40 mg PO DAILY Qty: 90 0RF magnesium 400 mg PO TID (DME) underpads [Bed Underpads] Pad See Rx Instructions .Route Qty: 150 11RF Rx Instructions: As directed (DME) wipes See Rx Instructions .Route .MEDSUPPLY Qty: 200 11RF Rx Instructions: As directed (DME) nebulizers [VixOne Nebulizer-Adult Mask] Misc See Rx Instructions .Route Qty: 1 0RF Rx Instructions: As directed- tube like famotidine 20 mg tablet 20 mg PO DAILY PRN (Reason: heartburn) 30 Days Qty: 30 2RF hydrocortisone [Cortef] 10 mg Tablet 10 mg PO DAILY Qty: 30 0RF warfarin 5 mg tablet 5 mg PO MOFR Protocol: Dose Management Condition: Monday (Week One) Dose/Route: 2.5 mg Instruction: 1 x 2.5 mg tablet Condition: Monday Dose/Route: 2.5 mg Instruction: 1 x 2.5 mg tablet Condition: Monday Dose/Route: 2.5 mg Instruction: 1 x 2.5 mg tablet Condition: Monday Dose/Route: 5 mg Instruction: 1 x 5 mg tablet Condition: Dose/Route: 2.5 mg Instruction: 1 x 2.5 mg tablet Condition: Monday Dose/Route: 2.5 mg Instruction: 1 x 2.5 mg tablet Condition: Monday Dose/Route: 2.5 mg Instruction: 1 x 2.5 mg tablet Condition: Monday (Week Two) Dose/Route: 2.5 mg Instruction: 1 x 2.5 mg tablet Condition: Monday Dose/Route: 2.5 mg Instruction: 1 x 2.5 mg tablet Condition: Monday Dose/Route: 2.5 mg Instruction: 1 x 2.5 mg tablet Condition: Monday Dose/Route: 2.5 mg Instruction: 1 x 2.5 mg tablet Condition: Dose/Route: 2.5 mg Instruction: 1 x 2.5 mg tablet Condition: Monday Dose/Route: 2.5 mg Instruction: 1 x 2.5 mg tablet Condition: Monday Dose/Route: 2.5 mg Instruction: 1 x 2.5 mg tablet Protocol Text: Adjustment Start Date: Monday02/07/24 INR Value: 1.7 INR Date: 02/07/24 Recheck Date: 02/12/24 warfarin 2.5 mg tablet 2.5 mg PO SUTUWETHSA Protocol: Dose Management Condition: Monday (Week One) Dose/Route: 2.5 mg Instruction: 1 x 2.5 mg tablet Condition: Monday Dose/Route: 2.5 mg Instruction: 1 x 2.5 mg tablet Condition: Monday Dose/Route: 2.5 mg Instruction: 1 x 2.5 mg tablet Condition: Monday Dose/Route: 5 mg Instruction: 1 x 5 mg tablet Condition: Dose/Route: 2.5 mg Instruction: 1 x 2.5 mg tablet Condition: Monday Dose/Route: 2.5 mg Instruction: 1 x 2.5 mg tablet Condition: Monday Dose/Route: 2.5 mg Instruction: 1 x 2.5 mg tablet Condition: Monday (Week Two) Dose/Route: 2.5 mg Instruction: 1 x 2.5 mg tablet Condition: Monday Dose/Route: 2.5 mg Instruction: 1 x 2.5 mg tablet Condition: Monday Dose/Route: 2.5 mg Instruction: 1 x 2.5 mg tablet Condition: Monday Dose/Route: 2.5 mg Instruction: 1 x 2.5 mg tablet Condition: Dose/Route: 2.5 mg Instruction: 1 x 2.5 mg tablet Condition: Monday Dose/Route: 2.5 mg Instruction: 1 x 2.5 mg tablet Condition: Monday Dose/Route: 2.5 mg Instruction: 1 x 2.5 mg tablet Protocol Text: Adjustment Start Date: Monday02/07/24 INR Value: 1.7 INR Date: 02/07/24 Recheck Date: 02/12/24 albuterol sulfate 2.5 mg /3 mL (0.083 %) solution for nebulization 2.5 mg inhalation Q6H PRN (Reason: bronchospasm) 30 Days Qty: 75 1RF [place] [facility] [place] [facility] [Provider Group] (Call to establish and follow up with a urologist. ) Poonam Hernandez MD [Primary Care Provider] - Print Language: Serbian
--- NOTE | 2024-02-11 14:43 | MHC.EDTECH ---
Bladder scan done. Patient tolerated very well. Bladder scan volume amount was 264 mL. Documented this in patient care bladder scan entry. IGNORE 618 mL entry, this entry was incorrectly documented and not accurate for this patient. Call guillory placed within reach. Patient resting. Patient states he is comfortable at this time.
[2024-02-11 15:05] LABS: MANUAL DIFF FLAG NO
[2024-02-11 15:10] LABS: Basophils Absolute Auto 0.1 X10*3/uL (0.0-0.2); Basophils Percent Auto 0.8 % (0-2); Eosinophils Absolute Auto 0.5 X10*3/uL (0.0-0.4); Hematocrit 36.1 % (42.0-52.0); Hemoglobin 11.7 g/dl (14.0-18.0); Imm Gran Abs Auto 0.03 X10*3/uL (0.00-0.03); Imm Gran Pct Auto 0.4 % (0.0-0.4); Lymphocytes Percent Auto 13.6 % (20-40); Mean Corpuscular HGB Conc 32.4 g/dl (31.0-36.0); Mean Corpuscular Hemoglobin 27.1 pg (27.0-33.0); Mean Corpuscular Volume 83.6 fL (80.0-98.0); Mean Platelet Volume 11.2 fL (9.4-12.4); Monocytes Absolute Auto 0.4 X10*3/uL (0.1-1.2); Monocytes Percent Auto 5.1 % (2-11); Neutrophils Absolute Auto 5.4 x10*3/uL (2.0-8.3); Neutrophils Percent Auto 73.1 % (45-73); Platelet Count 169 X10*3/uL (160-400); Red Blood Count 4.32 X10*6/uL (4.60-5.80); Red Cell Distribution Width 15.9 % (11.0-16.0); White Blood Count 7.4 X10*3/uL (4.8-10.8)
[2024-02-11 15:19] LABS: Alanine Aminotransferase 10 U/L (0-40); Albumin Level 3.4 g/dL (3.5-5.0); Alkaline Phosphatase 157 U/L (39-117); Anion Gap 13 (12-20); Aspartate Amino Transferase 26 U/L (5-37); Bilirubin Total 0.5 mg/dL (0.0-1.0); Blood Urea Nitrogen 25 mg/dL (9-16); Calcium 8.9 mg/dL (8.4-10.2); Carbon Dioxide 25 mmol/L (22-29); Chloride 107 mmol/L (96-108); Estimated Glomerular Filt Rate 40; Glucose Random 101 mg/dL (60-115); Magnesium 1.8 mg/dL (1.6-2.6); Potassium 4.6 mmol/L (3.3-5.1); Sodium 140 mmol/L (135-145); Total Protein 6.4 g/dL (6.5-8.0)
[2024-02-11 15:55] LABS: Appearance Urine Clear; Color Urine Yellow; Glucose Urine UA >=1000 mg/dL (Negative); Leukocyte Esterase Urine Negative (Negative); Nitrite Urine Negative (Negative); Specific Gravity - Urine 1.015 (1.005-1.025); UMIC TRIGGER UACC YES; Urine Blood Moderate (2+) (Negative); Urine Ketones Negative (Negative); Urine Protein Negative (Neg-Trace)
[2024-02-11 16:00] VITALS: BP 120/71; PULSE 65; RESP 16; TEMP 36.9; O2SAT 97
[2024-02-11 17:02] LABS: Bacteria Urine None Seen (None Seen); Hyaline Casts Urine 0-2 /LPF (0-2); RBC Urine >20 /HPF (0-2); Squamous Epithelial Cell Urine 0-2 /HPF (0-2); WBC Urine 0-5 /HPF (0-5)
--- NOTE | 2024-02-11 17:38 | PC.NURSE ---
multiple calls made to Adry pts [employer] as pt is up for discharge but he does not have his house keys, pts [employer] MECH[employer]IC does. left message for call back
[2024-02-11 18:21] VITALS: BP 144/95; PULSE 61; RESP 16; TEMP 36.7; O2SAT 94
[2024-02-11 20:00] VITALS: BP 144/95; PULSE 74; RESP 16; TEMP 36.8; O2SAT 96
[2024-02-11 20:13] VITALS: BP 144/95; PULSE 74; RESP 16; TEMP 36.8; O2SAT 96
== END 2024-02-11 20:30 | disposition home or self-care (01) ==
PROVIDERS: Physician Assistant Medical; Emergency Provider Emergency Medicine; PCP Internal Medicine
DX: R32 Unspecified urinary incontinence (principal); R33.9 Retention of urine, unspecified; I48.91 Unspecified atrial fibrillation; E11.9 Type 2 diabetes mellitus without complications; Z79.01 Long term (current) use of anticoagulants; Z79.899 Other long term (current) drug therapy
CPT/HCPCS: 36415; 51702; 51798; 80053; 81001; 82947; 83735; 85025; 99284; 99285

== ENCOUNTER → 2024-02-15 10:42 | Outpatient (BNVA) | payer OTHER, SELFPAY | PROVIDERS: PCP Internal Medicine; Visit Provider Internal Medicine ==

== ENCOUNTER 2024-02-19 | Outpatient (REF) | payer OTHER, SELFPAY ==
--- OUTSIDE RECORDS SUMMARY | 2024-04-03 16:02 | XMS_ITS ---
Author Organization [facility] Address [address] [place] [address] Care Team Providers Care Guideman Name Role Phone Endy SMITH, Poonam Primary Care Provider Unavail Josep Westbrook Unavailable [phone] Encounters Encounter Location Date Provider Diagnosis [address] [address] 03/22/2024 Josep Lenz Plan Of Treatment No Information Progress Notes * Yousif RAINDOB:1945 (79 yo M)Acc No.[id number]:03/22/2024 Progress Note Patient:Yousif BENITO Provider:?Josep Lenz DPM :1945???Age:79 Y???Sex:Male Armaan e:03/22/2024 Address:[address] [place], [place] [id number] Pcp:Poonam Schumacher MD Subjective: * Chief Complaints: * ??? * Medical History:? Objective: * Vitals:? Assessment: Plan: * Treatment: * Images: * The named appointment provid er may or may not be the originator of this progress note, and it is not deemed complete until electronically signed by the appointment provider. Sign off status: Pending * Provider:?Josep Lenz DPM Date:?2023 Generated for Tayo kemp/Isaias/Julitoransmitting on:?04/03/2024 04:02 PM EST
--- OUTSIDE RECORDS SUMMARY | 2024-04-03 16:02 | XMS_ITS ---
Author Organization [facility] Address [address] [place] [address] Care Team Providers Care Music Librarian Name Role Phone Endy SMITH, Poonam Primary Care Provider Unavail Josep Westbrook Unavailable [phone] REASON FOR VISIT Cancel Encounters Encounter Location Date Provider Diagnosis [facility] [address] [place] [address] 03/21/2024 Josep Lenz Plan Of Treatment No Information Progress Notes * Yousif RAINDOB:1945 (79 yo M)Acc No.[id number]:03/21/2024 Patient:?Yousif RAIN :1945???Age:79 Y???Sex:Male Address:[address] [place] [address], [place], [address] * true * Date:? Generated for Suhasi justo/Isaias/eTransmitting on:?04/03/2024 04:02 PM EST
--- OUTSIDE RECORDS SUMMARY | 2024-04-03 16:03 | XMS_ITS | Patient Health Record ---
Author Organization [facility] Address [address] [facility] [place] [address] Care Team Providers Care Natural Foods Clerk Name Role Phone Endy SMITH, Poonam Primary Care Provider Unavail able Josep Lenz Unavailable [phone] Allergies No Known Allergies Reason For Referral No Information Medications Medication SIG (Take, Route, Frequency, Duration) Notes Start Date End Date Status levETIRAcetam 750 MG 1 tablet Orally stephanie ry 12 hrs Active Jardiance 10 MG 1 tablet Orally Once a day Active Hydrocortisone 5 MG 1 tablet with food o r milk Orally every 8 hrs Active FLUoxetine HCl 20 MG 1 capsule Orally On ce a day Active Tamsulosin HCl 0.4 MG 1 capsule Orally O nce a day Active Mirtazapine 15 MG 1 tablet at bedtime Orally Once a day Active metFORMIN HCl 500 MG 1 tablet with a dali l Orally Once a day Active Magnesium Oxide 250 MG 1 tablet as neede d Orally Once a day Active Allopurinol 100 MG 1 tablet Orally Once a day Active Ferrous Sulfate 325 (65 Fe) MG 1 tablet Orally Three times a Week Active Famotidine 20 MG 1 tablet at bedtime as needed Orally Once a day Active Atorvastatin Calcium 40 MG 1 tablet Oral ly Once a day Active Aspirin 81 81 MG 1 tablet Orally Once a day Active Extra Depth Orthopedic Shoes (1 Pair) with Customized Heat Molded Multidensity Innersoles (3 Pair) as directed Dx: NIDDM/Polyneuropathy (E11.42), Hammertoe Foot Deformity (M20.41,M20.42), Preulcerative Skin Lesion(s) (L85.1 12/22/2023 Active Social History Tobacco Use: Social History Observation Description Date Details (start date - stop date) Never Smoker NA - NA Tobacco Use/Smoking Question Answer Notes Are you a: nonsmoker Additional Findings: Tobacco Non-User Current no n-smoker Alcohol Screen Question Answer Notes Did you have a drink containing alcohol in the p ast year? No Points 0 Interpretation Negative Tobacco use other than smoking: Question Answer Notes Are you an other tobacco user? No Problems Problem Type SNOMED Code ICD Code Onset Dates Problem Status W/U Status Risk Notes Problem Acquired hammer toe of right foot (1307249262836169 ) Other hammer toe(s) (acquired), right foot (M20.41) Active confirmed Problem Acquired hammer toe of left foot (2687904017811252 ) Other hammer toe(s) (acquired), left foot (M20.42) Active confirmed Problem Polyneuropathy due to type 2 diabetes mellitus (083990011) Type 2 diabetes mellitus with diabetic polyneuropathy (E11.42) Active confirmed Vital Signs Height 6 ft 2 in in 12/22/2023 Weight 210 lbs lbs 12/22/2023 BMI 26.96 kg/m2 12/22/2023 Procedures Procedure Date Ordered Date Performed Result Body Sit e 90201-OGGWGSA NAIL, 6 OR MORE 12/22/2023 N/A 32168-QQJH SKIN LESIONS, OVER 4 12/22/2023 N/A Encounters Encounter Location Date Provider Diagnosis [facility] [address] [address] 12/22/2023 Josep Lenz Type 2 diabetes mellitus with diabetic polyneuropathy E11.42 ; Tinea unguium B35.1 ; Other hammer toe(s) (acquired), right foot M20.41 and Other hammer toe(s) (acquired), left foot M20.42 [facility] [address] [address] 03/21/2024 Josep Lenz Assessments Encounter Date Diagnosis (ICD Code) Assessment Notes Treatment Notes Treatment Clinical Notes Section Notes 12/22/2023 Type 2 diabetes mellitus with diabetic polyneuropathy (ICD-10 - E11.42) 12/22/2023 Tinea unguium (ICD-10 - B35.1) 12/22/2023 Other hammer toe(s) (acquired), right foot (ICD-10 - M20.41) Patient Educated with: DIABETIC FOOT CARE INSTRUCTIONS. pdf (DIABETIC FOOT CARE INSTRUCTIONS. pdf) 12/22/2023 Other hammer toe(s) (acquired), left foot (ICD-10 - M20.42) Plan Of Treatment Pending Test Test Name Order Date 18201-LKCVNCZ NAIL, 6 OR MORE 12/22/2023 03491-[id number] SKIN LESIONS, OVER 4 12/22/19 24 Insurance Providers Payer Name Payer Address Payer Phone Subscriber Number Group Number Insured Name Patient Relationship to Insured Coverage Start Date Coverage End Date [facility] [employer] Claims [address] [place] [address] [phone] [id number] Yousif Mcintosh Self - patient is the insured Medical (General) History Medical History History ICD Code Diabetic Epilepsy Gout Stroke Hypercholesterolemia Surgical History Surgery Date(Month/Year)
--- OUTSIDE RECORDS SUMMARY | 2024-04-03 16:03 | XMS_ITS ---
Author Organization [facility] Address [address] [place] [address] Care Team Providers Care Ecd Name Role Phone Endy SMITH, Poonam Primary Care Provider Unavail able Josep Lenz Unavailable [phone] Allergies No Known Allergies REASON FOR VISIT At Risk Footcare, Toe Irritation Medications Medication SIG (Take, Route, Frequency, Duration) Notes Start Date End Date Status Allopurinol 100 MG 1 tablet Orally Once a day Active Ferrous Sulfate 325 (65 Fe) MG 1 tablet Orally Three times a Week Active Famotidine 20 MG 1 tablet at bedtime as needed Orally Once a day Active Atorvastatin Calcium 40 MG 1 tablet Oral ly Once a day Active Aspirin 81 81 MG 1 tablet Orally Once a day Active levETIRAcetam 750 MG 1 tablet Orally stephanie ry 12 hrs Active Jardiance 10 MG 1 tablet Orally Once a day Active Hydrocortisone 5 MG 1 tablet with food o r milk Orally every 8 hrs Active FLUoxetine HCl 20 MG 1 capsule Orally On ce a day Active Magnesium Oxide 250 MG 1 tablet as neede d Orally Once a day Active Tamsulosin HCl 0.4 MG 1 capsule Orally O nce a day Active Mirtazapine 15 MG 1 tablet at bedtime Orally Once a day Active metFORMIN HCl 500 MG 1 tablet with a dali l Orally Once a day Active Extra Depth [...] Problem Status W/U Status Risk Notes Problem Polyneuropathy due to type 2 diabetes mellitus (539666540) Type 2 diabetes mellitus with diabetic polyneuropathy (E11.42) Active confirmed Problem Acquired hammer toe of right foot (2948465229608119 ) Other hammer toe(s) (acquired), right foot (M20.41) Active confirmed Problem Acquired hammer toe of left foot (4914470756402957 ) Other hammer toe(s) (acquired), left foot (M20.42) Active confirmed Vital Signs Height 6 ft 2 in in 12/22/2023 Weight 210 lbs lbs 12/22/2023 BMI 26.96 kg/m2 12/22/2023 Procedures Procedure Date Ordered Date Performed Result Body Sit e 36651-IGHHNQT NAIL, 6 OR MORE 12/22/2023 N/A 78667-PHPD SKIN LESIONS, OVER 4 12/22/2023 N/A Encounters Encounter Location Date Provider Diagnosis [facility] [address] [place] [address] 12/22/2023 Josep Lenz Type 2 diabetes mellitus with diabetic polyneuropathy E11.42 ; Tinea unguium B35.1 ; Other hammer toe(s) (acquired), right foot M20.41 and Other hammer toe(s) (acquired), left foot M20.42 Assessments Encounter Date Diagnosis (ICD Code) Assessment [...] foot (ICD-10 - M20.42) Plan Of Treatment Medication Medication Name Sig Start Date Stop Date Notes Extra Depth Orthopedic Shoes (1 Pair) with Customized Heat Molded Multidensity Innersoles (3 Pair) as directed Dx: NIDDM/Polyneuropathy (E11.42), Hammertoe Foot Deformity (M20.41,M20.42), Preulcerative Skin Lesion(s) (L85.1 12/22/2023 Treatment Notes Assessment Notes Other hammer toe(s) (acquired), right fo ot Patient Educated with: DIABETIC FOOT CARE INSTRUCTIONS.pdf (DIABETIC FOOT CARE INSTRUCTIONS.pdf) Pending Test Test Name Order Date [id number]-[id number] NAIL, 6 OR MORE 12/22/2023 15229-LGLK SKIN LESIONS, OVER 4 12/22/19 24 Next Appt Details Follow Up: 3 Months, Reason: Procedure Notes * Category Sub-Category Detail Notes Debride Nail 6-10 Nail debridement Performance o f this nail treatment by a nonprofessional would put this patients foot and overall health at risk. Therefore, nail debridement was performed extensively to reduce/remove overall nail length, girth, thickness, subungual debris, and necrotic tissue, by manual and/or electrical means through the use of a nail nipper and/or dremel-type cutter grinder, to a more viable healthy nail plate or bed tissue 6-10. Silver nitrate used for any petechial bleeding as necessary. Definitive antifungal treatment options have been reviewed and discussed with the patient. The patient chooses, no pharmaceutical tx - 40823 Keratoma Treatment Parring or Cutting o f Benign Hyperkeratotic Lesion(s) (-57) More than 4 Lesions - The Benign hyperkeratotic lesions, as described above were pared, and/or cut utilizing a sterile 15 blade, tissue nippers, and/or dremel - 43962 Progress Notes * Yousif RAINDOB:1945 (78 yo M)Acc No.[id number]:12/22/2023 Progress Notes Patient:?Yousif Rain Provider:?Josep Lenz DPM :1945???Age:78 Y???Sex:Male Armaan e:12/22/2023 Address:[address] [place] [address] [address] [facility], [id number] Pcp:Poonam Schumacher MD Subjective: * Chief Complaints: * ???At Risk FootcareToe Irrit ation * HPI: ???At Risk footcare:?Pt States Last PCP Visit:?Date?10/31/2023 ???Toe pain:?Location:?B/L feet.?Duration:?several years.?Course:?worse.?Aggravated by:?shoes, any pressure.?Treatments:?change in shoes.? * ROS:?General/Constitutional:?Nausea?denies.?Vomiting?denies.?Hunger Thirst?denies.?Loss appetite?denies.?Chills?denies.?Fatigue?denies.?Fever?denies.?Night Sweats?denies.?Unexplained weight loss?denies.?Unexplained weight gain?denies.?HEENTM:?Dentures?denies.?Dizziness?denies.?Glasses/contacts?denies.?Retinopathy?de nies.?Blurred/double vision?denies.?TMJ?denies.?Discharge/drainage?denies.?Implants?denies.?Sore throat?denies.?Dental implants?denies.?Hard of hearing ?denies.?Difficulty chewing/swallowing/speaking?admits ?.?Nose bleeds?denies.?Sore mouth?denies.?Respiratory:?On Oxygen?denies.?Pneumonia/pleurisy?denies.?Bronchitis?denies.?Emphysema?denies.?C oughing?denies.?Cough blood?denies.?Shortness of breath?denies.?Wheezing?denies.?Cardiovascular:?Pacemaker?denies.?MVP?denies.?WPW?denies.?CHF?denies.?Heart attack?denies.?Septal defect?denies.?Rapid beat?denies.?Chest pain ?denies.?Atrial Fib.?denies.?Murmur/Palpitations?denies.?Gastrointestinal:?Hemorrhoids?denies.?Stomach/Abdominal pain?denies.?Dark blood stool?denies.?Irritable bowel ?denies.?Constipation?denies.?Diarrhea?denies.?Hematology:?Swelling?admits.?Clots?denies.?Varicose Veins?denies.?Bruising?denies.?Bleeding problem?denies.?Genitourinary:?Blood urine?denies.?Frequent/Painfu/urination/bladder control?denies.?Kidney stones?denies.?Infection (UTI)?denies.?Nephropathy?denies.?sex trans dis (STD)?denies.?Prostate?denies.?Musculoskeletal:?Hammertoes?admits.?Bunions?denies.?Back Pain?denies.?Muscle Cramps/ Resting?denies.?Muscle cramps / walking?denies.?Generalized aches and pains?denies.?Weakness?denies.?Integ.:?Olea?denies.?Scars?denies.?Corns/calluses?admits.?Ingrown nails?admits.?Painful nails?denies.?Open Sores?denies.?Rashes?denies.?Neurologic:?Difficulty sleeping?denies.?Brain disorder?denies.?Numbness?admits.?Balance trouble?admits.?Confusion?denies.?Fainting/blackouts?denies.?Tingling?denies.?Tr emors?denies.? * Medical History:? * Surgical History:?Denies Pas t Surgical History * Hospitalization/Major Diagno stic Procedure:?Denies Past Hospitalization * Family History:?Mother: dece ased, heart attack, diagnosed with Unspecified essential hypertension.?Father: , bone cancer, diagnosed with Unspecified essential hypertension.? * Social History:?Tobacco Use:?Tobacco Use/Smoking?Are you a:?nonsmoker ?Additional Findings: Tobacco Non-User?Current non-smoker ?Tobacco use other than smoking?Are you an other tobacco user??No ???Drugs/Alcohol:?Drugs?Have you used drugs other than those for medical reasons in the past 12 months??No ?Alcohol Screen?Did you have a drink containing alcohol in the past year??No ?Points?0 ?Interpretation?Negative ???Miscellaneous:?Caffeine: yes, frequency:, 1-2 cups per day. ?no Exercise. ?Occupation: disabled. * Medications:?TakingTamsulosi n HCl 0.4 MG Capsule 1 capsule Orally Once a dayMirtazapine 15 MG Tablet 1 tablet at bedtime Orally Once a daymetFORMIN HCl 500 MG Tablet 1 tablet with a meal Orally Once a dayMagnesium Oxide 250 MG Tablet 1 tablet as needed Orally Once a daylevETIRAcetam 750 MG Tablet 1 tablet Orally every 12 hrsJardiance 10 MG Tablet 1 tablet Orally Once a dayHydrocortisone 5 MG Tablet 1 tablet with food or milk Orally every 8 hrsFLUoxetine HCl 20 MG Capsule 1 capsule Orally Once a dayFerrous Sulfate 325 (65 Fe) MG Tablet 1 tablet Orally Three times a WeekFamotidine 20 MG Tablet 1 tablet at bedtime as needed Orally Once a dayAtorvastatin Calcium 40 MG Tablet 1 tablet Orally Once a dayAspirin 81 81 MG Tablet Chewable 1 tablet Orally Once a dayAllopurinol 100 MG Tablet 1 tablet Orally Once a dayMedication List reviewed and reconciled with the patientTaking Tamsulosin HCl 0.4 MG Capsule 1 capsule Orally Once a dayTaking Mirtazapine 15 MG Tablet 1 tablet at bedtime Orally Once a dayTaking metFORMIN HCl 500 MG Tablet 1 tablet with a meal Orally Once a dayTaking Magnesium Oxide 250 MG Tablet 1 tablet as needed Orally Once a dayTaking levETIRAcetam 750 MG Tablet 1 tablet Orally every 12 hrsTaking Jardiance 10 MG Tablet 1 tablet Orally Once a dayTaking Hydrocortisone 5 MG Tablet 1 tablet with food or milk Orally every 8 hrsTaking FLUoxetine HCl 20 MG Capsule 1 capsule Orally Once a dayTaking Ferrous Sulfate 325 (65 Fe) MG Tablet 1 tablet Orally Three times a WeekTaking Famotidine 20 MG Tablet 1 tablet at bedtime as needed Orally Once a dayTaking Atorvastatin Calcium 40 MG Tablet 1 tablet Orally Once a dayTaking Aspirin 81 81 MG Tablet Chewable 1 tablet Orally Once a dayTaking Allopurinol 100 MG Tablet 1 tablet Orally Once a dayMedication List reviewed and reconciled with the patient * Allergies:?N.K.D.A.yes[Aller gies Verified] Objective: * Vitals:?Ht: 6 ft 2 in, Wt: 2 10 lbs, BMI: 26.96, Shoe size: 11, Ht-cm: 187.96 cm, Wt-k.25 kg. * Examination: ???Neurological: ?SENSORY:? Neurological exam demonstrates, reduced light touch sensation, reduced sharp/dull pin prick discrimination , B/L, 5.07 monofilament test performed at plantar aspects of 5 varied sites per foot shows sensation, reduced , B/L.?Nails: ?NAILS are:?Elongated, overgrown, dystrophic, lytic, greater than 3mm thick, discolored and friable with crumbly malodorous subungual debris , 1-5 B/L.?Dermatologic: ?SKIN FINDINGS:?Skin exam reveals Keratotic lesion(s) located at , SUB MTH (s) , 1 , B/L , SUB MTH (s) , 2 , B/L , SUB MTH (s) , 5 , B/L , Heel(s) , B/L.?Orthopedic: ?MUSCLE STRENGTH:?Generalized decrease in strength , B/L.?GAIT ABNORMALITY:?apropulsive , unstable/unsteady relating occasional difficulty with balance.?FOOT MORPHOLOGY:?(-) Charcot collapse/destruction noted at MTJ.?DIGITAL DEFORMITIES:?Digital contracture, PIPJ, 2-5 B/L, incompl-reducible to push-up test, no over, nor underlapping,?there is?evidence of shoe producing skin irritation.?FOOTWEAR:?worn, non-supportive, shoe gear properties exacerbate patient's foot/toe deformity.?Vascular: ?DP PULSES:?0/4, B/L.?PT PULSES:?0/4, B/L.?CAPILLARY FILL TIME:?delayed, all digits, B/L.?SKIN TEMPERTURE GRADIENT OF THE LOWER EXTERMITIES:?decreased, cool to cool, proximal to distal, B/L.?HAIR GROWTH/TEXTURE/ELASTICITY/TURGOR:?decreased, B/L.?PIGMENTATION:?rubrous, B/L.?EDEMA:?2/4 , pitting , without aching pain , Leg(s) , Ankle(s) , Foot , B/L.?CLAUDICATION:?denies, B/L.?REST PAIN:?denies, B/L.?Ophthalmology Referral: ?DIABETES EYE EXAM?General Examination: ?GENERAL APPEARANCE:?Reveals a pleasant, alert, well nourished, well- developed, well hydrated individual, who demonstrates proper attention to hygiene/body habitus, and is in no acute distress, Pt serves as own historian for office visit today.?ORIENTED:?person, place, and time.?FOOT EXAM:?Footwear Evaluation? Assessment: * Assessment: 1.?Type 2 diabetes mellitus with diabetic polyneuropathy - E11.42 (Primary)?2.?Tinea unguium - B35.1?3.?Other hammer toe(s) (acquired), right foot - M20.41, Chronic problem, Worse (4),Rx Management (4)?4.?Other hammer toe(s) (acquired), left foot - M20.42, Chronic problem, Worse (4),Rx Management (4)? Plan: * Treatment: 2.?Other hammer toe(s) (acqu ired), right foot? Start Extra Depth Orthopedic Shoes (1 Pair) with Customized Heat Molded Multidensity Innersoles (3 Pair), as directed, Dx: NIDDM/Polyneuropathy (E11.42), Hammertoe Foot Deformity (M20.41,M20.42), Preulcerative Skin Lesion(s) (L85.1, 1, Refills 0.?? Notes: Patient Educated with: DIABETIC FOOT CARE INSTRUCTIONS.pdf (DIABETIC FOOT CARE INSTRUCTIONS.pdf)?? * Procedures:?Debride Nail 6-10:?Nail debridement?Performance of this nail treatment by a nonprofessional would put this patients foot and overall health at risk. Therefore, nail debridement was performed extensively to reduce/remove overall nail length, girth, thickness, subungual debris, and necrotic tissue, by manual and/or electrical means through the use of a nail nipper and/or dremel-type cutter grinder, to a more viable healthy nail plate or bed tissue 6-10. Silver nitrate used for any petechial bleeding as necessary. Definitive antifungal treatment options have been reviewed and discussed with the patient. The patient chooses, no pharmaceutical tx - 00722.?Keratoma Treatment:?Parring or Cutting of Benign Hyperkeratotic Lesion(s)?(-57) More than 4 Lesions - The Benign hyperkeratotic lesions, as described above were pared, and/or cut utilizing a sterile 15 blade, tissue nippers, and/or dremel - 88396.? * Procedure Codes:?60641 DEBRI DE NAIL, 6 OR MORE, Modifiers: XS 96408 TRIM SKIN LESIONS, OVER 4, Modifiers: XS * Preventive Medicine:? ??Counseling:?Discussion:?-04: Office or other outpatient visit for the evaluation and management of a new patient, which required a medically appropriate history and/or examination and MODERATE level of DECISION MAKING for: 1 OR MORE CHRONIC PROBLEM(S) THATS WORSENING, 2 STABLE CHRONIC PROBLEMS, A NEWLY DIAGNOSED PROBLEM WITH UNCERTAIN PROGNOSIS, AN ACUTE COMPLICATED INJURY WITH MULTIPLE TREATMENT OPTIONS, OR AN ACUTE PROBLEM WITH ACCOMPANYING SYSTEMIC SYMPTOMS, THAT POSE(S) A MODERATE RISK OF MORBIDITY. THIS CONDITION MAY ALSO INCLUDE RX DRUG MANAGEMENT, OR A DECISON FOR MINOR SURGERY. The visit on the day of the encounter encompassed interpreting the data and educating the patient as to the nature of their condition, treatment options available according to their individual PMH, meds, allergies, and overall health/living conditions, as well as any potential risks or complications that may occur from a failure to adhere to, and participate in, the recommended course of therapy. The discussion included a complete verbal, and/or written explanation of the examination results, any x-rays taken, the proposed diagnosis, and outline of the treatment plan. A schedule for future care needs was also explained. The patient verbalized an understanding of the instructions at this time and agreed to be an active participant in their treatment. If the patient should think of any questions or concerns after the visit, I have encouraged the patient to call the office.?Digital Surgery:?Digital surgery was discussed with the patient, We elected to try conservative treatment at the present time, due to the patients medical history and increased asssociated post-operative risks.?Digital Treatment:?HT- I explained to the patient the possible etiologies of Hammertoes, including genetics/foot type/shoegear/activity level/exercise routine and the risks/benefits of all the different treatment options for their pain including: No treatment at all, Rest, Ice, New/supportive/wider/deeper Shoegear, Digital Padding/Strapping/Taping/Bracing/Gel protective sleeves, Foot/Ankle AFO Bracing, Stretching exercises, Deep Tissue Massage, Arch support/shoe inserts with splay metatarsal padding, and Custom orthoses. I insisted that any digital devices be removed daily and not worn overnight for safety. The patient is to carefully examine the toes daily for any skin irritation while using any splinting or padding device. The advantages and disadvantages of each option were discussed and the patients questions re: shoegear, padding, custom vs prefabricated inserts, activity level, and consistency in home treatment regimens for optimal success were answered to their verbally confirmed satisfaction.?Shoe Gear Counseling:?SHOE Rx - The patient was counseled in great detail on their muscoloskeletal foot and toe deformities which coincided with the dermatological presentations visualized on exam. We discussed how their deformities put the integrity of their feet at risk for potential pedal complications which makes the accomidative diabetic shoes and cutomizable inserts medically necessary. We discussed the different shoe and insert treatment types and options, as well as the important advantages for adhering to regularly wearing these accomidative devices daily. The patient was made aware of the fact that a failure to abide by these recommedations may be deleterious to their foot health as they are able to prevent many pedal complications such as skin irritation, skin ulceration, infection, and even loss of toe/foot/leg/or life. Time was also spent with the patient dispensing and discussing proper diabetic footcare techniques including daily skin moisturization, daily foot inspection for any interruption in skin integrity including open lesions, or sign of infection such as redness/malodor/drainage/swelling. Also discussed and recommended were procedures regarding daily shoe inspection for the presence of internal foreign bodies as well as any visualized irregular shoe or insert wear. Patient questions re: shoes, inserts, and self foot inspections were answered to their satisfaction as the patient verbally confirmed a full understanding of the above information. A Rx for Extra Depth Orthopedic Shoes with 3 pair of custom heat-molded inserts was dispensed.? * Follow Up:?3 Months * Images: * Sign off status: Completed true * Provider:?Josep Lenz DPM Date:?2023 Generated for Tayo kemp/Isaias/Tremayne on:?04/03/2024 04:02 PM EST History and Physical Notes * HPI (History of Present Illness) Category Sub-Category Detail Notes Category Not es Toe pain Location: B/L feet Duration: several years Course: worse Aggravated by: shoes, any pressure Treatments: change in shoes At Risk footcare Pt States Last PCP Visit: Date: 4 Examination Category Sub-Category Detail Notes Category Not es Neurological SENSORY: Neurological exa m demonstrates, reduced light touch sensation, reduced sharp/dull pin prick discrimination , B/L, 5.07 monofilament test performed at plantar aspects of 5 varied sites per foot shows sensation, reduced , B/L Dermatologic SKIN FINDINGS: Skin exam reveal s Keratotic lesion(s) located at , SUB MTH (s) , 1 , B/L , SUB MTH (s) , 2 , B/L , SUB MTH (s) , 5 , B/L , Heel(s) , B/L Orthopedic GAIT ABNORMALITY: apropulsive , unstable/unsteady relating occasional difficulty with balance FOOT MORPHOLOGY: (-) Charcot collapse /destruction noted at MTJ FOOTWEAR: worn, non-supportive , shoe gear properties exacerbate patient's foot/toe deformity DIGITAL DEFORMITIES: Digital contracture , PIPJ, 2-5 B/L, incompl-reducible to push-up test, no over, nor underlapping, there is evidence of shoe producing skin irritation MUSCLE STRENGTH: Generalized decrease in strength , B/L General Examination GENERAL APPEARANCE: Reveals a pleasant, alert, well nourished, well-developed, well hydrated individual, who demonstrates proper attention to hygiene/body habitus, and is in no acute distress, Pt serves as own historian for office visit today FOOT EXAM: Lower Extremity Neurological Exa m performed:: Yes ORIENTED: person, place, and t andrew Footwear Evaluation Footwear Evaluation performe d:: Yes Ophthalmology Referral DIABETES EYE EXAM Diabetic Retinopa thy Screening:: No Vascular DP PULSES (B): 0/4, B/L PT PULSES (B): 0/4, B/L CAPILLARY FILL TIME: delayed, all digits , B/L TEMPERTURE GRADIENT (C): decreased, cool to cool, proximal to distal, B/L TROPHIC CONDITION-TEXTURE/ELASTICITY/TURGOR/HAIR GROWTH (B): decreased, B/L EDEMA (C): 2/4 , pitting , with out aching pain , Leg(s) , Ankle(s) , Foot , B/L CLAUDICATION (C): denies, B/L REST PAIN: denies, B/L PIGMENTATION: rubrous, B/L Nails NAILS are: Elongated, overg rown, dystrophic, lytic, greater than 3mm thick, discolored and friable with crumbly malodorous subungual debris , 1-5 B/L
== END 2024-02-19 00:01 | disposition home or self-care (01) ==
LOC: HO.US
PROVIDERS: PCP Internal Medicine; Visit Provider Surgery Vascular Surgery
DX: N40.1 Benign prostatic hyperplasia with lower urinary tract symptoms (principal); R33.8 Other retention of urine; N39.41 Urge incontinence
CPT/HCPCS: 51700; 51798

== ENCOUNTER → 2024-03-08 10:50 | Outpatient (BNVA) | payer OTHER, SELFPAY | PROVIDERS: PCP Internal Medicine; Visit Provider Internal Medicine ==

== ENCOUNTER → 2024-03-22 11:27 | Outpatient (BNVA) | payer OTHER, SELFPAY | PROVIDERS: PCP Internal Medicine; Visit Provider Internal Medicine ==

== ENCOUNTER 2024-03-27 05:41 | Emergency (ER) | payer OTHER, SELFPAY ==
--- NOTE | ~2024-03-27 | CT_ITS ---
EXAMINATION: CT ABDOMEN AND PELVIS WITHOUT CONTRAST CLINICAL INFORMATION: Flank pain COMPARISON: CT dated December 08, 2023 TECHNIQUE: Multidetector volumetric imaging was performed from the superior aspect of the liver through the pubic symphysis. Sagittal and coronal reformatted images were obtained on the technologist's workstation. This CT examination was performed using dose optimization techniques as appropriate, variously including the following: *Automated exposure control *Adjustment of mA and/or kV according to patient size (this includes techniques or standardized protocols for targeted exams where dose is matched to indication/reason for exam; i.e. extremities or head) *Use of iterative reconstruction technique DLP: 721 mGy-cm FINDINGS: Limited evaluation of the intra-abdominal organs and vascular structures due to lack of IV contrast. LUNG BASES: Patchy pulmonary groundglass and peribronchial septal thickening both lung bases. Heart is enlarged, all 4 chambers. Small volume pericardial effusion. Calcified plaques in the aorta and coronary arteries. LIVER, GALLBLADDER, AND BILIARY TREE: Liver measures 14 cm. Multiple intraluminal calcifications/hyperdensity in a nondistended gallbladder without pericholecystic fluid collection or gallbladder wall thickening. No intra or extrahepatic biliary ductal dilatation. PANCREAS: Fatty. No peripancreatic fluid collections. No main pancreatic ductal dilatation. SPLEEN: 10 cm. ADRENAL GLANDS: Right adrenal gland: There is a large, 10 cm, heterogeneous predominantly fatty mass with a solid [place] calcified soft tissue component measuring 4 cm. Left adrenal gland: No nodular lesions. KIDNEYS AND URETERS: Small kidneys. No hydronephrosis or nephrolithiasis. BLADDER: Collapsed. Gamez catheter placement with intraluminal gas. GASTROINTESTINAL TRACT: Numerous diverticula. Abundant stool. No intestinal obstruction pattern. No pericolonic edema pattern. No ascites. No pneumoperitoneum. No pneumatosis intestinalis. Appendix is normal. ABDOMINAL WALL: Diastases abdominal rectus muscles. LYMPH NODES: There is a 1.6 cm lymphadenopathy in the left periaortic retroperitoneum. VASCULAR: Mixed plaques throughout the abdominal aorta wall and iliac arteries without gross aneurysm. PELVIC VISCERA: Heterogeneously enlarged prostate gland with a 3.6 cm soft tissue component towards the left posterior lateral. OSSEOUS STRUCTURES: Multilevel marginal osteophyte formation and syndesmophyte formation and calcifications along the anterior longitudinal ligament. Superior endplate compression deformity L4 representing 30% volume loss. Osteopenia versus osteoporosis. Metallic hardware in the right femur not fully evaluated. CT/CT abdomen pelvis wo IV con IMPRESSION: No hydronephrosis or nephrolithiasis. 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 Cholelithiasis. 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 Cardiomegaly. Ankylosis spondylitis, thoracic spine.. Fleischner guidelines were followed. Electronically signed by: Dangelo Ayala MD 03/27/2024 10:47 AM MAGALI
[2024-03-27 05:56] VITALS: BP 125/73; BP 128/90; PULSE 71; PULSE 83; RESP 20; TEMP 36.7; O2SAT 98; BMI 28.9
[2024-03-27 06:37] LABS: MANUAL DIFF FLAG NO
[2024-03-27 06:38] LABS: Basophils Absolute Auto 0.1 X10*3/uL (0.0-0.2); Basophils Percent Auto 0.7 % (0-2); Eosinophils Absolute Auto 0.7 X10*3/uL (0.0-0.4); Hematocrit 38.5 % (42.0-52.0); Hemoglobin 12.6 g/dl (14.0-18.0); Imm Gran Abs Auto 0.02 X10*3/uL (0.00-0.03); Imm Gran Pct Auto 0.2 % (0.0-0.4); Lymphocytes Absolute Auto 1.6 X10*3/uL (1.2-4.9); Lymphocytes Percent Auto 19.7 % (20-40); Mean Corpuscular HGB Conc 32.7 g/dl (31.0-36.0); Mean Corpuscular Hemoglobin 26.8 pg (27.0-33.0); Mean Corpuscular Volume 81.9 fL (80.0-98.0); Mean Platelet Volume 10.7 fL (9.4-12.4); Monocytes Absolute Auto 0.5 X10*3/uL (0.1-1.2); Monocytes Percent Auto 5.8 % (2-11); Neutrophils Absolute Auto 5.4 x10*3/uL (2.0-8.3); Neutrophils Percent Auto 65.6 % (45-73); Platelet Count 156 X10*3/uL (160-400); White Blood Count 8.2 X10*3/uL (4.8-10.8)
[2024-03-27 06:49] LABS: Anion Gap 12 (12-20); Blood Urea Nitrogen 26 mg/dL (9-16); Calcium 9.3 mg/dL (8.4-10.2); Carbon Dioxide 23 mmol/L (22-29); Chloride 111 mmol/L (96-108); Creatinine Clr Calc Pharmacy 49.7; Estimated Glomerular Filt Rate 43; Glucose Random 110 mg/dL (60-115); INTERNATIONAL NORM RATIO 2.4 (0.9-1.1); Prothrombin Time 28.1 SEC (10.9-12.4); Sodium 141 mmol/L (135-145)
[2024-03-27 06:54] LABS: Prothrombin Time Whole Bld POC 32.3 sec (11.1-13.5); ~PT, ~INR - Anti Coag Clinic 2.7 (0.9-1.1)
[2024-03-27 06:55] LABS: Glucose, Whole Blood 114 mg/dL (60-115)
--- NOTE | 2024-03-27 07:04 | ED.MALEGU ---
HPI - Male Genitourinary General Chief complaint: General Medical Stated complaint: URINARY RETENTION Time Seen by Provider: 03/27/24 06:50 Source: patient, EMS and old records reviewed Mode of arrival: EMS Limitations: no limitations History of Present Illness ED Provider: YOLI CALIXTO Narrative: 79 yo male with PMH of CVA, back pain, DM, seizures, CHF, seizures, BPH, HLD, HTN, PAF on coumadin here with c/o 2 days of dribbling scant drops of urine that is blood with suprapubic pain. He denies n/v/d fevers and chills. He denies seeing blood clots. He states he has not had back pain. He states he has had a goldman in the past. MD Complaint: other (hematuria) Onset (ago): day(s) (2) Duration: intermittent Location: penis and abdomen (suprapubic) Radiation: penis Severity: mild Quality: burning Relieving factors: urination Exacerbating factors: none Associated symptoms: Reports blood in urine Related Data Home Medications ?Medication ?Instructions ?Recorded ?Confirmed warfarin 2.5 mg tablet 2.5 mg PO SUTUWETHSA 11/01/23 03/22/24 warfarin 5 mg tablet 5 mg PO MOFR 11/01/23 03/22/24 Previous Rx's ?Medication ?Instructions ?Recorded power wheelchair #1 ea 02/27/21 blood sugar diagnostic (OneTouch #100 ea 01/11/23 Ultra Test strips) blood-glucose meter (OneTouch #1 ea 01/11/23 Ultra2 Meter) lancets 30 gauge (Onetouch Delica #100 ea 01/11/23 Safety Lancet) adult diapers pull-ups #240 ea 09/05/23 gloves #200 ea 09/05/23 incontinent wipes #200 ea 09/05/23 atorvastatin 40 mg tablet 40 mg PO BEDTIME 90 days #90 tabs 10/11/23 empagliflozin 10 mg tablet 10 mg PO DAILY 90 days #90 tabs 10/11/23 (Jardiance) metoprolol succinate 25 mg 12.5 mg (1/2 x 25 mg) PO DAILY #90 10/11/23 tablet,extended release 24 hr tabs allopurinol 100 mg tablet 100 mg PO DAILY #90 tabs 10/17/23 ferrous sulfate 325 mg (65 mg 325 mg PO DAILY 60 days #60 tabs 10/17/23 iron) tablet metformin 500 mg tablet 500 mg PO DAILY 90 days #90 tabs 11/10/23 mirtazapine 15 mg tablet 15 mg PO BEDTIME 3 months #90 tabs 11/11/23 hydrocortisone 10 mg tablet 10 mg PO DAILY #30 tabs 01/01/24 (Cortef) albuterol sulfate 2.5 mg/3 mL 2.5 mg (3 mL) inhalation Q6H PRN 01/30/24 (0.083 %) solution for nebulization bronchospasm 30 days #75 mL fluoxetine 20 mg capsule 40 mg (2 x 20 mg) PO DAILY #90 caps 01/30/24 underpads (Bed Underpads) #150 ea 01/30/24 wipes #200 ea 01/30/24 nebulizers (VixOne Nebulizer-Adult #1 ea 01/31/24 Mask) famotidine 20 mg tablet 20 mg PO DAILY PRN heartburn 30 02/11/24 days #30 tabs magnesium oxide 400 mg PO DAILY 90 days #90 caps 02/19/24 Legs rests for Dynaride 19 TWC #1 ea 02/22/24 non elevating bed side table #1 ea 02/22/24 commode (bedside commode) #1 ea 02/22/24 aspirin 81 mg tablet,delayed 81 mg PO DAILY 3 months #90 tabs 03/22/24 release hydrocortisone 5 mg tablet (Cortef) 10 mg (2 x 5 mg) PO DAILY #120 tabs 03/22/24 levetiracetam 750 mg tablet 750 mg PO BID 3 months #180 tabs 03/22/24 tamsulosin 0.4 mg capsule 0.4 mg PO DAILY 3 months #90 caps 03/22/24 Allergies Allergy/AdvReac Type Severity Reaction Status Date / Time No Known Allergies Allergy Verified 03/27/24 06:02 Review of Systems Review of Systems: Constitutional : No Weight loss, No Fever, No Chills ENT/Mouth : No sore throat, No Rhinorrhea Eyes: No Swelling, No Redness Cardiovascular : No Chest Pain, No SOB, NoEdema Respiratory : No Cough, No Sputum, No Wheezing Gastrointestinal : no Nausea, no Vomiting, no Diarrhea, positive abdominal Pain, No Hematochezia, No Melena Genitourinary : No Dysuria, No Urinary Frequency, pos Hematuria, No Urgency Musculoskeletal : No joint pain, No Myalgias, No Joint Swelling Skin : No Skin Lesions, No rash Neuro : No Weakness, No Numbness, No Dizziness, No Headache All other systems reviewed and are negative. [facility] Past Medical History Attestation statement: The following information was validated with the patient. Source: old records reviewed Medical History Renal insufficiency CKD (chronic kidney disease) Physical exam Iron deficiency anemia Psoriasis Stroke Seizures Dyslipidemia BPH (benign prostatic hyperplasia) Hypovitaminosis D Gout Abnormal laboratory test Hypertension Diabetes Surgical History History of open reduction and internal fixation (ORIF) procedure History of kidney stones Family History Family History Mother Heart problem Father Bone cancer Social History Social History Household Members: None Housing: Apartment Do you presently have visiting nurse or other home services: Yes Unable to assess alcohol history related to: Unknown Alcohol intake: never Patient Tobacco Use Status: Never used Tobacco e-Cigarette/Vaping Use: Never Used Second Hand Smoke Exposure: No Advance Directives: Yes Advance Directives on File: Yes Advance Directives Date on File: 10/17/22 Do you have a plan to hurt others: No Plan service: No Current occupational status: disabled Cognitive needs: Yes (wheelchair) Hearing needs: No Vision needs: No Physical Exam Vital Signs: Vital Signs: Last Vital Signs Temp 98.7 F 03/27/24 07:32 Pulse 70 03/27/24 07:32 Resp 16 03/27/24 07:32 BP 116/74 03/27/24 07:32 Pulse Ox 97 03/27/24 07:32 O2 Del Method Room Air 03/27/24 07:32 BMI result Body Mass Index 28.9 Appearance: Alert. Oriented X3. No acute distress. Eyes: Pupils equal, round and reactive to light. ENT: Pharynx normal. Neck: Normal inspection. Neck supple. CVS: Normal heart rate and rhythm. Pulses normal. Respiratory: No respiratory distress. Breath sounds normal. Abdomen: Soft and mild suprapubic ttp Skin: Skin warm and dry. Normal skin color. Normal skin turgor. Extremities: No lower extremity edema. No calf ttp Neuro: Oriented X 3. moving all extremities Course Course Course Narrative: signed out to Sang PIMENTEL pending further workup 840am Medications Administered Discontinued Medications Generic Name Dose Route Start Last Admin Trade Name [place] PRN Reason Stop Dose Admin Lidocaine HCl 10 ml 03/27/24 06:58 03/27/24 07:14 Lidocaine Hcl 2 % Urojet 10 Ml Jel.Pf.[place] TOPICAL 03/27/24 06:59 10 ml ONCE ONE Administration Medical Decision Making Medical Decision Making [facility] Narrative: 79 yo male with PMH of CVA, back pain, DM, seizures, CHF, seizures, BPH, HLD, HTN, PAF on coumadin here with c/o hematuria but just a drop and unable to urinate with some suprapubic pain at this time bladder scan 400, will obtain labs, UA, CT Scan for obstructive pathology and place goldman. Cr and hemoglobin at baseline Differential Diagnosis Differential Diagnoses: The differential diagnosis associated with the presentation includes retention clot renal colic mass Admission/Observation Consideration of admission/observation: Escalation of care including admission/observation considered Lab Data [facility] Lab Attestation statement: I reviewed the patient's lab results. 03/27/24 06:32 03/27/24 06:32 Labs: Lab Results 03/27/24 03/27/24 03/27/24 Range/Units 06:32 06:39 06:40 WBC 8.2 (4.8-10.8) X10*3/uL RBC 4.70 (4.60-5.80) X10*6/uL Hgb 12.6 L (14.0-18.0) g/dl Hct 38.5 L (42.0-52.0) % MCV 81.9 (80.0-98.0) fL MCH 26.8 L (27.0-33.0) pg MCHC 32.7 (31.0-36.0) g/dl RDW 16.0 (11.0-16.0) % Plt Count 156 L (160-400) X10*3/uL MPV 10.7 (9.4-12.4) fL Immature Gran % (Auto) 0.2 (0.0-0.4) % Neut % (Auto) 65.6 (45-73) % Lymph % (Auto) 19.7 L (20-40) % [place] % (Auto) 5.8 (2-11) % Eos % (Auto) 8.0 H (0-4) % Baso % (Auto) 0.7 (0-2) % Lymph # (Auto) 1.6 (1.2-4.9) X10*3/uL [place] # (Auto) 0.5 (0.1-1.2) X10*3/uL Eos # (Auto) 0.7 H (0.0-0.4) X10*3/uL Baso # (Auto) 0.1 (0.0-0.2) X10*3/uL Abs Immat Gran (auto) 0.02 (0.00-0.03) X10*3/uL Absolute Neuts (auto) 5.4 (2.0-8.3) x10*3/uL Absolute Nucleated RBC 0.000 (0.0-0.012) X10*3/uL Nucleated RBC % (auto) 0.0 (0.0-0.2) /100WBC PT 28.1 H (10.9-12.4) SEC Whole Blood PT 32.3 H (11.1-13.5) sec INR 2.4 H (0.9-1.1) Whole Blood INR 2.7 H (0.9-1.1) Sodium 141 (135-145) mmol/L Potassium 5.0 (3.3-5.1) mmol/L Chloride 111 H (96-108) mmol/L Carbon Dioxide 23 (22-29) mmol/L Anion Gap 12 (12-20) BUN 26 H (9-16) mg/dL Creatinine 1.56 H (0.5-1.4) mg/dL Estim Creat Clear Calc 49.7 Estimated GFR 43 POC Glucose 114 (60-115) mg/dL Random Glucose 110 (60-115) mg/dL Calcium 9.3 (8.4-10.2) mg/dL Urine Color Urine Appearance Urine pH (5.0-9.0) Ur Specific [place] (1.005-1.025) Urine Protein (Neg-Trace) mg/dL Urine Glucose (UA) (Negative) mg/dL Urine Ketones (Negative) mg/dL Urine Blood (Negative) Urine Nitrite (Negative) Ur Leukocyte Esterase (Negative) Urine RBC (0-2) /HPF Urine WBC (0-5) /HPF Ur Squamous Epith Cells (0-2) /HPF Urine Bacteria (None Seen) Hyaline Casts (0-2) /LPF 03/27/24 Range/Units 07:35 WBC (4.8-10.8) X10*3/uL RBC (4.60-5.80) X10*6/uL Hgb (14.0-18.0) g/dl Hct (42.0-52.0) % MCV (80.0-98.0) fL MCH (27.0-33.0) pg MCHC (31.0-36.0) g/dl RDW (11.0-16.0) % Plt Count (160-400) X10*3/uL MPV (9.4-12.4) fL Immature Gran % (Auto) (0.0-0.4) % Neut % (Auto) (45-73) % Lymph % (Auto) (20-40) % [place] % (Auto) (2-11) % Eos % (Auto) (0-4) % Baso % (Auto) (0-2) % Lymph # (Auto) (1.2-4.9) X10*3/uL [place] # (Auto) (0.1-1.2) X10*3/uL Eos # (Auto) (0.0-0.4) X10*3/uL Baso # (Auto) (0.0-0.2) X10*3/uL Abs Immat Gran (auto) (0.00-0.03) X10*3/uL Absolute Neuts (auto) (2.0-8.3) x10*3/uL Absolute Nucleated RBC (0.0-0.012) X10*3/uL Nucleated RBC % (auto) (0.0-0.2) /100WBC PT (10.9-12.4) SEC Whole Blood PT (11.1-13.5) sec INR (0.9-1.1) Whole Blood INR (0.9-1.1) Sodium (135-145) mmol/L Potassium (3.3-5.1) mmol/L Chloride (96-108) mmol/L Carbon Dioxide (22-29) mmol/L Anion Gap (12-20) BUN (9-16) mg/dL Creatinine (0.5-1.4) mg/dL Estim Creat Clear Calc Estimated GFR POC Glucose (60-115) mg/dL Random Glucose (60-115) mg/dL Calcium (8.4-10.2) mg/dL Urine Color Yellow Urine Appearance Clear Urine pH 5.0 (5.0-9.0) Ur Specific [place] 1.015 (1.005-1.025) Urine Protein Trace (Neg-Trace) mg/dL Urine Glucose (UA) >=1000 H (Negative) mg/dL Urine Ketones Negative (Negative) mg/dL Urine Blood Large (3+) H (Negative) Urine Nitrite Negative (Negative) Ur Leukocyte Esterase Trace H (Negative) Urine RBC >20 H (0-2) /HPF Urine WBC 0-5 (0-5) /HPF Ur Squamous Epith Cells 0-2 (0-2) /HPF Urine Bacteria Trace (None Seen) Hyaline Casts 0-2 (0-2) /LPF Independent Interpretation I performed an independent interpretation of an: CT Scan External Record Review External record reviewed: Outpatient record Discharge Plan Discharge Clinical Impression: Acute urinary retention Hematuria Qualifiers: Hematuria type: gross Qualified Code(s): R31.0 - Gross hematuria Patient Disposition: Still a Patient Instructions: Urinary Retention in Men (ED), Goldman Catheter Placement and Care (ED), Hematuria (ED) Additional Instructions: INR 2.7 Prescriptions: No Action (DME) power wheelchair See Rx Instructions .Route .[email or web address] Qty: 1 0RF Rx Instructions: As directed (DME) blood-glucose meter [OneTouch Ultra2 Meter] Misc See Rx Instructions .Route Qty: 1 0RF Rx Instructions: test once per day (DME) OneTouch Ultra Test Strip See Rx Instructions .Route Qty: 100 4RF Rx Instructions: test once per day (DME) lancets [Onetouch Delica Safety Lancet] 30 gauge misc See Rx Instructions .Route Qty: 100 4RF Rx Instructions: test once per day (DME) adult diapers pull-ups XL See Rx Instructions .Route .[email or web address] Qty: 240 11RF Rx Instructions: As directed (DME) gloves Medium See Rx Instructions .Route .MEDSUPPLY Qty: 200 0RF Rx Instructions: As directed (DME) incontinent wipes See Rx Instructions .Route .MEDSUPPLY Qty: 200 0RF Rx Instructions: As directed atorvastatin 40 mg tablet 40 mg PO BEDTIME 90 Days Qty: 90 3RF Jardiance 10 mg tablet 10 mg PO DAILY 90 Days Qty: 90 1RF metoprolol succinate 25 mg tablet extended release 24 hr 12.5 mg PO DAILY Qty: 90 0RF ferrous sulfate 325 mg (65 mg iron) tablet 325 mg PO DAILY 60 Days Qty: 60 6RF allopurinol 100 mg tablet 100 mg PO DAILY Qty: 90 6RF metformin 500 mg tablet 500 mg PO DAILY 90 Days Qty: 90 1RF mirtazapine 15 mg tablet 15 mg PO BEDTIME 90 Days Qty: 90 3RF fluoxetine 20 mg capsule 40 mg PO DAILY Qty: 90 0RF (DME) underpads [Bed Underpads] Pad See Rx Instructions .Route Qty: 150 11RF Rx Instructions: As directed (DME) wipes See Rx Instructions .Route .MEDSUPPLY Qty: 200 11RF Rx Instructions: As directed (DME) nebulizers [VixOne Nebulizer-Adult Mask] Misc See Rx Instructions .Route Qty: 1 0RF Rx Instructions: As directed- tube like famotidine 20 mg tablet 20 mg PO DAILY PRN (Reason: heartburn) 30 Days Qty: 30 2RF magnesium oxide 400 mg magnesium capsule 400 mg PO DAILY 90 Days Qty: 90 1RF (DME) bedside commode Kit See Rx Instructions .Route Qty: 1 0RF Rx Instructions: As directed (DME) bed side table See Rx Instructions .Route .MEDSUPPLY Qty: 1 0RF Rx Instructions: As directed (DME) Legs rests for Dynaride 19 TWC non elevating See Rx Instructions .Route .MEDSUPPLY Qty: 1 0RF Rx Instructions: As directed levetiracetam 750 mg tablet 750 mg PO BID 90 Days Qty: 180 0RF hydrocortisone [Cortef] 5 mg tablet 10 mg PO DAILY Qty: 120 3RF tamsulosin 0.4 mg capsule 0.4 mg PO DAILY 90 Days Qty: 90 1RF aspirin 81 mg tablet,delayed release (DR/EC) 81 mg PO DAILY 90 Days Qty: 90 3RF hydrocortisone [Cortef] 10 mg Tablet 10 mg PO DAILY Qty: 30 0RF warfarin 5 mg tablet 5 mg PO MOFR Protocol: Dose Management Condition: Monday (Week One) Dose/Route: 2.5 mg Instruction: 1 x 2.5 mg tablet Condition: Monday Dose/Route: 2.5 mg Instruction: 1 x 2.5 mg tablet Condition: Monday Dose/Route: 2.5 mg Instruction: 1 x 2.5 mg tablet Condition: Monday Dose/Route: 2.5 mg Instruction: 1 x 2.5 mg tablet Condition: Dose/Route: 2.5 mg Instruction: 1 x 2.5 mg tablet Condition: Monday Dose/Route: 5 mg Instruction: 1 x 5 mg tablet Condition: Monday Dose/Route: 2.5 mg Instruction: 1 x 2.5 mg tablet Condition: Monday ( Two) Dose/Route: 2.5 mg Instruction: 1 x 2.5 mg tablet Condition: Monday Dose/Route: 2.5 mg Instruction: 1 x 2.5 mg tablet Condition: Monday Dose/Route: 2.5 mg Instruction: 1 x 2.5 mg tablet Condition: Monday Dose/Route: 2.5 mg Instruction: 1 x 2.5 mg tablet Condition: Dose/Route: 2.5 mg Instruction: 1 x 2.5 mg tablet Condition: Monday Dose/Route: 5 mg Instruction: 1 x 5 mg tablet Condition: Monday Dose/Route: 2.5 mg Instruction: 1 x 2.5 mg tablet Protocol Text: Adjustment Start Date: Monday03/22/24 INR Value: 2.3 INR Date: 03/22/24 Recheck Date: 03/29/24 warfarin 2.5 mg tablet 2.5 mg PO SUTUWETHSA Protocol: Dose Management Condition: Monday (Week One) Dose/Route: 2.5 mg Instruction: 1 x 2.5 mg tablet Condition: Monday Dose/Route: 2.5 mg Instruction: 1 x 2.5 mg tablet Condition: Monday Dose/Route: 2.5 mg Instruction: 1 x 2.5 mg tablet Condition: Monday Dose/Route: 2.5 mg Instruction: 1 x 2.5 mg tablet Condition: Dose/Route: 2.5 mg Instruction: 1 x 2.5 mg tablet Condition: Monday Dose/Route: 5 mg Instruction: 1 x 5 mg tablet Condition: Monday Dose/Route: 2.5 mg Instruction: 1 x 2.5 mg tablet Condition: Monday (Week Two) Dose/Route: 2.5 mg Instruction: 1 x 2.5 mg tablet Condition: Monday Dose/Route: 2.5 mg Instruction: 1 x 2.5 mg tablet Condition: Monday Dose/Route: 2.5 mg Instruction: 1 x 2.5 mg tablet Condition: Monday Dose/Route: 2.5 mg Instruction: 1 x 2.5 mg tablet Condition: Dose/Route: 2.5 mg Instruction: 1 x 2.5 mg tablet Condition: Monday Dose/Route: 5 mg Instruction: 1 x 5 mg tablet Condition: Monday Dose/Route: 2.5 mg Instruction: 1 x 2.5 mg tablet Protocol Text: Adjustment Start Date: Monday03/22/24 INR Value: 2.3 INR Date: 03/22/24 Recheck Date: 03/29/24 albuterol sulfate 2.5 mg /3 mL (0.083 %) solution for nebulization 2.5 mg inhalation Q6H PRN (Reason: bronchospasm) 30 Days Qty: 75 1RF Print Language: Guamanian
[2024-03-27] MEDS: Lidocaine HCl 2 % Urojet 10 ML JEL.PF.APP TOPICAL (07:14)
[2024-03-27 07:32] VITALS: BP 116/74; PULSE 70; RESP 16; TEMP 37.1; O2SAT 97
[2024-03-27 07:46] LABS: Appearance Urine Clear; Color Urine Yellow; Glucose Urine UA >=1000 mg/dL (Negative); Leukocyte Esterase Urine Trace (Negative); Nitrite Urine Negative (Negative); Specific Gravity - Urine 1.015 (1.005-1.025); UMIC TRIGGER UACC YES; Urine Blood Large (3+) (Negative); Urine Ketones Negative (Negative); Urine Protein Trace mg/dL (Neg-Trace)
[2024-03-27 07:51] LABS: Bacteria Urine Trace (None Seen); Hyaline Casts Urine 0-2 /LPF (0-2); RBC Urine >20 /HPF (0-2); Squamous Epithelial Cell Urine 0-2 /HPF (0-2); WBC Urine 0-5 /HPF (0-5)
--- NOTE | 2024-03-27 10:12 | PC.NURSE ---
Assumed care of patient at 0700, alert and oriented. Gamez placed, 400mL of urine output obtained, urine culture sent.
[2024-03-27 11:52] VITALS: BP 124/82; PULSE 69; RESP 16; TEMP 36.6; O2SAT 97
[2024-03-27 13:42] LABS: Glucose, Whole Blood 69 mg/dL (60-115)
[2024-03-27 13:42] LABS: COVID-19 Test Negative (Negative); IDNOW Serial# 58CA691E
--- NOTE | 2024-03-27 15:56 | PC.NURSE ---
Report given to overflow CHRIS Geller. Care transferred.
[2024-03-27 16:26] VITALS: BP 115/68; PULSE 56; RESP 16; TEMP 36.6; O2SAT 98
[2024-03-27] MEDS: Finasteride 5 MG TABLET PO (17:03)
--- NOTE | 2024-03-27 18:11 | MHC.CM.ED ---
CM met with patient at the request of Eliza PIMENTEL. Receiving Team Member used as patient is Citizen Of [place] speaking only. Pt is A&Ox3. Pt lives alone. Has approximately 32 hours of PRODUCT SUPPORT CONSULTANT services per week from [facility]. Pt states he has VNA nurse M-W-F, but cannot remember name of the agency. States he has PT twice a week, but does not know what agency. PCP is Dr. Donte Mejia. Pt is wheelchair bound S/P CVA. Has electric and manual Wheelchair. Pt can self transfer. Pt has HCP on file. Pt states his HCP is his son, Aaron Mcintosh, but he does not know his phone number.. HCP on file does not have a phone number. HCP#2 did not answer the phone. Pt primary contact Adry Blevins did not answer the phone. Unable to verify patient services. PT recommends home PT, which patient states he already has. Attempted to contact [facility]. Will need to call in the morning to verify services. Pt has a new goldman catheter. Pt will need BLS transport arranged in the morning. CM uneasy with transport home tonight without ability to verify services. CM will follow for safe discharge home in the morning.
[2024-03-27 18:48] LABS: Glucose, Whole Blood 91 mg/dL (60-115)
--- NOTE | 2024-03-27 21:05 | PC.NURSE ---
Provider called regarding med rec. This RN called and spoke to Rocio @ pharm Per Rocio they are working on it. Provider notified and aware. Plan of care ongoing.
[2024-03-27 21:09] LABS: Glucose, Whole Blood 85 mg/dL (60-115)
--- NOTE | 2024-03-27 21:44 | PHA.MEDREC ---
Pharmacy Consult ? Medication Reconciliation Pharmacy has completed the medication reconciliation.
[2024-03-27 22:00] VITALS: BP 151/82; PULSE 80; RESP 12; TEMP 36.7; O2SAT 97
--- NOTE | 2024-03-27 22:25 | PC.NURSE ---
Pt a&ox3, no signs of distress. Pt denies pain at this time. Plan of care ongoing.
[2024-03-28 06:00] VITALS: BP 180/97; PULSE 73; RESP 18; TEMP 37.2; O2SAT 95
[2024-03-28 07:48] LABS: Glucose, Whole Blood 79 mg/dL (60-115)
[2024-03-28 08:06] VITALS: BP 170/93; PULSE 80; RESP 18; TEMP 36.6; O2SAT 95
--- NOTE | 2024-03-28 08:29 | PC.NURSE ---
Pt. resting comfortably in bed at this time. Denies complaints and reports no pain. Plan of care ongoing.
--- NOTE | 2024-03-28 09:00 | PC.NURSE ---
Per TANESHA Jenkins: This pt. will likely be d/c'ed home today with physical therapy services.
--- NOTE | 2024-03-28 11:26 | PC.NURSE ---
Mary Front End Web Designer to pt.'s bedside with this RN to address pt. questions about Gamez catheter and d/c plan
[2024-03-28 12:00] VITALS: BP 148/89; PULSE 77; RESP 18; TEMP 37; O2SAT 93
[2024-03-28 12:35] LABS: Glucose, Whole Blood 94 mg/dL (60-115)
--- NOTE | 2024-03-28 12:40 | MHC.CM.ED ---
Addendum entered by Alice Ramos 03/28/24 12:51: Received confirmation that patient is active with [facility] for nursing. Patient is eligible for physical therapy but patient has refused. Edwige ELKINS booked for 5pm. Patient, Tanja PEREZ and Mia HAGEN aware. Original Note: Patient remains in ER overflow. Per Melanie of [facility], patient should be active with [facility]. Referral made to [facility]. Also left voicemail requesting return telephone call. Continue to monitor for d/c needs.
[2024-03-28 15:33] VITALS: BP 139/89; PULSE 82; RESP 18; TEMP 36.6; O2SAT 95
[2024-03-28 18:17] VITALS: BP 139/89; PULSE 82; RESP 18; TEMP 36.6; O2SAT 95
== END 2024-03-28 18:17 | disposition home or self-care (01) ==
PROVIDERS: Physician Assistant Medical; Emergency Provider Emergency Medicine; PCP Internal Medicine
DX: R33.9 Retention of urine, unspecified (principal); R31.0 Gross hematuria; N42.89 Other specified disorders of prostate; R93.5 Abnormal findings on diagnostic imaging of other abdominal regions, including retroperitoneum; Z11.52 Encounter for screening for COVID-19; E11.22 Type 2 diabetes mellitus with diabetic chronic kidney disease; I13.0 Hypertensive heart and chronic kidney disease with heart failure and stage 1 through stage 4 chronic kidney disease, or unspecified chronic kidney disease; N18.9 Chronic kidney disease, unspecified; I50.9 Heart failure, unspecified; E78.5 Hyperlipidemia, unspecified; I48.0 Paroxysmal atrial fibrillation; D50.9 Iron deficiency anemia, unspecified; Z86.73 Personal history of transient ischemic attack (TIA), and cerebral infarction without residual deficits; Z79.01 Long term (current) use of anticoagulants; Z79.02 Long term (current) use of antithrombotics/antiplatelets; Z79.899 Other long term (current) drug therapy; Z79.82 Long term (current) use of aspirin
CPT/HCPCS: 36415; 51702; 51798; 74176; 80048; 81001; 82947; 85025; 85610; 87635; 97162; 99285

== ENCOUNTER → 2024-03-27 06:58 | Outpatient (BNV) | payer OTHER, SELFPAY | PROVIDERS: Emergency Provider Emergency Medicine; Visit Provider Radiology Diagnostic Radiology | DX: N42.9 Disorder of prostate, unspecified (principal); K80.20 Calculus of gallbladder without cholecystitis without obstruction; K57.90 Diverticulosis of intestine, part unspecified, without perforation or abscess without bleeding | CPT/HCPCS: 74176 ==

== ENCOUNTER 2024-04-03 15:06 | Outpatient (AMB) | payer OTHER, SELFPAY ==
--- NOTE | 2024-04-03 15:07 | A.OFFVIS_ITS ---
Intake Visit Reasons: intermittent hematuria/BPH Intake Note: Patient is present for INTERMITTIENT HEMATURIA/BPH Urology Medication:ALLOPURINOL,TAMSULOSIN Antibiotic Allergy:NONE Blood Thinner:ASPIRIN,WARFARIN Grants Manager Required: No Allergies No Known Allergies Allergy (Verified 04/03/24 16:47) Medication List - Last Reconciled 04/03/24 by LING Gonzalez [adult diapers pull-ups As directed] allopurinol 100 mg PO DAILY aspirin 81 mg PO DAILY 3 months atorvastatin 40 mg PO BEDTIME 90 days [bed side table As directed] blood sugar diagnostic (MMISuch Ultra Test strips) test once per day blood-glucose meter (MMISuch Ultra2 Meter) test once per day commode (bedside commode) As directed empagliflozin (Jardiance) 10 mg PO DAILY 90 days famotidine 20 mg PO DAILY PRN 30 days ferrous sulfate 325 mg PO DAILY 60 days finasteride 5 mg PO DAILY 90 days fluoxetine 40 mg (2 x 20 mg) PO DAILY [gloves As directed] hydrocortisone (Cortef) 10 mg (2 x 5 mg) PO DAILY [incontinent wipes As directed] lancets ([employer] Delica Safety Lancet) test once per day [Legs rests for Dynaride 19 TWC non elevating As directed] levetiracetam 750 mg PO BID 3 months magnesium oxide 400 mg PO DAILY 90 days metformin 500 mg PO DAILY 90 days metoprolol succinate ER 12.5 mg (1/2 x 25 mg) PO DAILY mirtazapine 15 mg PO BEDTIME 3 months nebulizers (VixOne Nebulizer-Adult Mask) As directed- tube like [power wheelchair As directed] tamsulosin 0.4 mg PO DAILY 3 months underpads (Bed Underpads) As directed warfarin 5 mg See Protocol PO MOFR warfarin 2.5 mg See Protocol PO SUTUWETHSA [wipes As directed] HPI Comments Details: Dax is a pleasant 79-year-old male patient of Dr. Kent who was accompanied by one of his industrial relations analyst at todays office visit. He has a past medical history of renal insufficiency, chronic kidney disease, iron deficiency anemia, cirrhosis, stroke in 2012, seizures, dyslipidemia, gout, hypertension, and diabetes. He presents to the office today for follow-up. Of note, patient was seen over a year ago at which time recommendations were made for further imaging and redraw of PSA however in discussion with the patient today he reports never completing this as he was in and out of rehab. He reports most recently over the last six months he has been having intermittent episodes of gross hematuria most recently following up in the ER approximately 1 week ago at which time he was having a difficult time urinating and a Gamez catheter was placed due to PVR of 400 mL. He reports since catheter has been placed he has had no bouts of hematuria or urinary issues. In assessment of the patient today Gamez catheter draining clear yellow urine. He reports compliance with Flomax as prescribed. In review of patient's chart it appears consultation while patient was in ER was made to Dr. Jose Alberto Weeks at [facility] time recommendation were to initiation Proscar and flomax however in review of patient's MAR it appears patient on Flomax however not on Proscar. In review of patient's chart it also appears a CT of the abdomen was ordered and performed 04/09 noting no hydronephrosis or nephrolithiasis. 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 He does have a history of elevated PSA in 02.16. However PSA was ordered and never completed. He reports prior to ER he had been experiencing issues with incontinence. He currently denies fever, chills, and or abdominal pain. We discussed voiding trial in 1-2 weeks as well as in office cystoscopy for evaluation of gross hematuria in the setting of anticoagulation. We also discussed importance of obtaining PSA for further assessment evaluation. We discussed at length importance of following up as planned. [facility] Medical History Renal insufficiency CKD (chronic kidney disease) Physical exam Iron deficiency anemia Psoriasis Stroke Seizures Dyslipidemia BPH (benign prostatic hyperplasia) Hypovitaminosis D Gout Abnormal laboratory test Hypertension Diabetes Surgical History History of open reduction and internal fixation (ORIF) procedure History of kidney stones Family History Mother Heart problem Father Bone cancer Social History Household Members: None Housing: Apartment Do you presently have visiting nurse or other home services: Yes Unable to assess alcohol history related to: Unknown Alcohol intake: never Patient Tobacco Use Status: Never used Tobacco e-Cigarette/Vaping Use: Never Used Second Hand Smoke Exposure: No Advance Directives Date on File: 10/17/22 service: No Current occupational status: disabled Cognitive needs: Yes (wheelchair) Hearing needs: No Vision needs: No Review of Systems Const Reports as per HPI Eyes Reports no additional complaints ENT Reports no additional complaints Card Reports as per HPI Resp Reports as per [facility] GI Reports as per HPI Reports as per [facility] Musc Reports as per HPI Neuro Reports as per HPI Psych Reports as per HPI Endo Reports as per HPI Physical Exam Const General: cooperative, comfortable, no acute distress, well developed, alert, awake and tired appearing Orientation/consciousness: patient oriented x3 Limitations: wheelchair HEENT Head: Yes normal to inspection Eyes General: appearance normal, both eyes and all related structures Neck Neck: Yes normal visual inspection Chest Chest palpation & inspection: normal inspection of the chest Resp Effort & Inspection: normal respiratory effort and able to speak in complete sentences Cardio Rate: regular rate GI Inspection: Yes normal to inspection General: Yes no CVA tenderness Penis: normal penis Back/Spine/Pelvis Back: no CVA tenderness Skin General skin exam: no rashes or lesions noted Neuro General: patient oriented x3 Extrem General: Yes normal to inspection Psych Appearance: grossly normal Mental Status: mental status grossly normal Speech and movement: Clear speech present Affect: normal affect Attitude: cooperative Thought process: Normal thought process present Thought content: Normal thought content present Insight: Fair insight present (Psych) Judgement: Fair judgement present (Psych) Results Reviewed Results Reviewed: Date of Service: 03/27/24 EXAMINATION: CT ABDOMEN AND PELVIS WITHOUT CONTRAST FINDINGS: Limited evaluation of the intra-abdominal organs and vascular structures due to lack of IV contrast. LUNG BASES: Patchy pulmonary groundglass and peribronchial septal thickening both lung bases. Heart is enlarged, all 4 chambers. Small volume pericardial effusion. Calcified plaques in the aorta and coronary arteries. LIVER, GALLBLADDER, AND BILIARY TREE: Liver measures 14 cm. Multiple intraluminal calcifications/hyperdensity in a nondistended gallbladder without pericholecystic fluid collection or gallbladder wall thickening. No intra or extrahepatic biliary ductal dilatation. PANCREAS: Fatty. No peripancreatic fluid collections. No main pancreatic ductal dilatation. SPLEEN: 10 cm. ADRENAL GLANDS: Right adrenal gland: There is a large, 10 cm, heterogeneous predominantly fatty mass with a solid [place] calcified soft tissue component measuring 4 cm. Left adrenal gland: No nodular lesions. KIDNEYS AND URETERS: Small kidneys. No hydronephrosis or nephrolithiasis. BLADDER: Collapsed. Gamez catheter placement with intraluminal gas. GASTROINTESTINAL TRACT: Numerous diverticula. Abundant stool. No intestinal obstruction pattern. No pericolonic edema pattern. No ascites. No pneumoperitoneum. No pneumatosis intestinalis. Appendix is normal. ABDOMINAL WALL: Diastases abdominal rectus muscles. LYMPH NODES: There is a 1.6 cm lymphadenopathy in the left periaortic retroperitoneum. VASCULAR: Mixed plaques throughout the abdominal aorta wall and iliac arteries without gross aneurysm. PELVIC VISCERA: Heterogeneously enlarged prostate gland with a 3.6 cm soft tissue component towards the left posterior lateral. OSSEOUS STRUCTURES: Multilevel marginal osteophyte formation and syndesmophyte formation and calcifications along the anterior longitudinal ligament. Superior endplate compression deformity L4 representing 30% volume loss. Osteopenia versus osteoporosis. Metallic hardware in the right femur not fully evaluated. IMPRESSION: No hydronephrosis or nephrolithiasis. 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 Cholelithiasis. 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 Cardiomegaly. Ankylosis spondylitis, thoracic spine. Assessment & Plan Assessment & Plan (1) Urinary incontinence: Code(s): R32 - Unspecified urinary incontinence Category: Medical (2) Hematuria: Code(s): R31.9 - Hematuria, unspecified Category: Medical Qualifiers: Hematuria type: gross Qualified Code(s): R31.0 - Gross hematuria (3) Elevated PSA: Code(s): R97.20 - Elevated prostate specific antigen [PSA] Category: Medical (4) Prostate mass: Code(s): N42.89 - Other specified disorders of prostate Category: Medical (5) Urinary retention: Code(s): R33.9 - Retention of urine, unspecified Category: Medical (6) Incomplete bladder emptying: Code(s): R33.9 - Retention of urine, unspecified Category: Medical Plan Recent CT results reviewed with the patient today; as noted above. Continue tamsulosin as discussed and prescribed. Start finasteride as discussed and prescribed. We discussed obtaining PSA for further assessment evaluation. We discussed in office voiding trial as well as in office cystoscopy given episodes of gross hematuria. We discussed importance of following up as planned. Follow-up in 2 weeks for voiding trial; or sooner with any issues, concerns, and or questions. Medications: New finasteride 5 mg PO DAILY 90 tabs 1RF 90 days N13.8 - Other obstructive and reflux uropathy, N40.1 - Benign prostatic hyperplasia with lower urinary tract symptoms, R33.9 - Retention of urine, unspecified Patient Instructions: The patient had an opportunity to ask questions regarding the treatment plan. All questions were answered. Physical exam, labs, and imaging were discussed and reviewed in detail. As well as risks, benefits, and discussion of treatment choices. No major barriers to understanding were identified. The patient expressed understanding and agreement with the above treatment plan. The patient was made aware they should contact our office by phone for worsening of their current condition, the appearance of new symptoms, or with any questions or concerns. Compliance is encouraged with any medications and follow up testing that is ordered. It is a privilege to be allowed the opportunity to participate in? your urological care.? Again, if you have any questions or concerns If you have any questions or concerns please do not hesitate to contact me. The office is [phone]. This note is constructed using voice recognition software. While every effort has been made to ensure accuracy cleaning technician errors may have been included. Yours sincerely, LING Gonzalez Coding Level of Care Code Est Pt Level 4 (70894) Complex EM visit Add On G2211 Diagnoses Urinary incontinence R32 Gross hematuria R31.0 Hematuria type: gross Elevated PSA R97.20 Prostate mass N42.89 Urinary retention R33.9 Incomplete bladder emptying R33.9
== END 2024-04-03 16:39 | disposition home or self-care (01) ==
PROVIDERS: PCP Internal Medicine; Visit Provider Nurse Practitioner Family
DX: R32 Unspecified urinary incontinence (principal); R31.0 Gross hematuria; R97.20 Elevated prostate specific antigen [PSA]; N42.89 Other specified disorders of prostate; R33.9 Retention of urine, unspecified
CPT/HCPCS: 99214; G2211

== ENCOUNTER → 2024-04-03 15:06 | Outpatient (BNVA) | payer OTHER, SELFPAY | PROVIDERS: PCP Internal Medicine; Visit Provider Nurse Practitioner Family | DX: R33.9 Retention of urine, unspecified (principal); R31.0 Gross hematuria; R32 Unspecified urinary incontinence; R97.20 Elevated prostate specific antigen [PSA]; N42.89 Other specified disorders of prostate | CPT/HCPCS: 99212 ==

== ENCOUNTER 2024-04-04 10:27 | Outpatient (REF) | payer OTHER, SELFPAY | END 2024-04-04 10:28 | disposition home or self-care (01) | LOC: HO.LAB 10:27 | PROVIDERS: PCP Internal Medicine; Visit Provider Nurse Practitioner Family | DX: R33.9 Retention of urine, unspecified (principal); R97.20 Elevated prostate specific antigen [PSA]; N42.89 Other specified disorders of prostate; Z12.5 Encounter for screening for malignant neoplasm of prostate | CPT/HCPCS: 36415; 84153 ==

== ENCOUNTER → 2024-04-12 14:45 | Outpatient (BNVA) | payer OTHER, SELFPAY | PROVIDERS: PCP Internal Medicine; Visit Provider Internal Medicine ==

== ENCOUNTER → 2024-04-16 09:32 | Outpatient (BNVA) | payer OTHER, SELFPAY | PROVIDERS: PCP Internal Medicine; Visit Provider Nurse Practitioner Family | DX: N40.1 Benign prostatic hyperplasia with lower urinary tract symptoms (principal); R33.9 Retention of urine, unspecified | CPT/HCPCS: 51700 ==

== ENCOUNTER 2024-04-19 11:49 | Outpatient (AMB) | payer OTHER, SELFPAY ==
--- NOTE | 2024-04-19 11:42 | MHC.OFFVISCO ---
Intake Intake Visit Reasons: Anticoagulation Allergies No Known Allergies Allergy (Verified 04/19/24 11:36) Medication List - Last Reconciled 04/19/24 by Leonela Gonsalez RN [adult diapers pull-ups As directed] allopurinol 100 mg PO DAILY aspirin 81 mg PO DAILY 3 months atorvastatin 40 mg PO BEDTIME 90 days [bed side table As directed] blood sugar diagnostic (PaperVTouch Ultra Test strips) test once per day blood-glucose meter (Lawn Loveuch Ultra2 Meter) test once per day commode (bedside commode) As directed empagliflozin (Jardiance) 10 mg PO DAILY 90 days famotidine 20 mg PO DAILY PRN 30 days ferrous sulfate 325 mg PO DAILY 60 days finasteride 5 mg PO DAILY 90 days fluoxetine 40 mg (2 x 20 mg) PO DAILY [gloves As directed] hydrocortisone (Cortef) 10 mg (2 x 5 mg) PO DAILY [incontinent wipes As directed] lancets (LOC&ALLuch Delica Safety Lancet) test once per day [Legs rests for Dynaride 19 TWC non elevating As directed] levetiracetam 750 mg PO BID 3 months magnesium oxide 400 mg PO DAILY 90 days metformin 500 mg PO DAILY 90 days metoprolol succinate ER 12.5 mg (1/2 x 25 mg) PO DAILY mirtazapine 15 mg PO BEDTIME 3 months nebulizers (VixOne Nebulizer-Adult Mask) As directed- tube like [power wheelchair As directed] tamsulosin 0.4 mg PO DAILY 3 months underpads (Bed Underpads) As directed warfarin 5 mg See Protocol PO MOFR warfarin 2.5 mg See Protocol PO SUTUWETHSA [wipes As directed] Nursing Note INR received from [facility] nurse Kathy, INR today is 2.3, Patient status: no changes Denies any signs and symptoms of any unusual bruising, bleeding or clotting Medication or supplements: no changes Diet: usual diet Activity: as radha Dose : Keep same dose of 2.5mg X 6 days and5mg X 1 day Dosing and diet instructions given with next retest date of 04/26/24, Nurse and patient verbalizes understanding of instructions given with accurate read back Anti-Coag Initial Assessment Social Hx Patient Tobacco Use Status: Never used Tobacco alcohol intake: never Coding Level of Care Code Est Patient Level 1 Diagnoses Current use of anticoagulant therapy Z79.01 Assessment & Plan Assessment & Plan (1) Current use of anticoagulant therapy: Code(s): Z79.01 - penitentiary (current) use of anticoagulants Category: Medical
--- OUTSIDE RECORDS SUMMARY | 2024-04-19 13:34 | XMS_ITS ---
Author Organization [facility] Address [address] [place] [address] Care Team Providers Care Horticulture Instructor Name Role Phone Endy SMITH, Poonam Primary Care Provider Unavail Josep Westbrook Unavailable [phone] Encounters Encounter Location Date Provider Diagnosis [address] [address] 03/22/2024 Josep Lenz Plan Of Treatment No Information Progress Notes * Yousif RAINDOB:1945 (79 yo M)Acc No.[id number]:03/22/2024 Progress Note Patient:Yousif BENITO Provider:?Josep Lenz DPM :1945???Age:79 Y???Sex:Male Armaan e:03/22/2024 Address:[address] [place], [place] [id number] Pcp:Poonam Schumacher MD Subjective: * Chief Complaints: * ??? * Medical History:? Objective: * Vitals:? Assessment: Plan: * Treatment: * Images: * The named appointment provid er may or may not be the originator of this progress note, and it is not deemed complete until electronically signed by the appointment provider. Sign off status: Pending * Provider:?Josep Lenz DPM Date:?2023 Generated for Tayo kemp/Isaias/Sarojsmitting on:?04/19/2024 01:34 PM EST
--- OUTSIDE RECORDS SUMMARY | 2024-04-19 13:35 | XMS_ITS ---
Author Organization [facility] Address [address] [place] [address] Care Team Providers Care Armored Car Messenger Name Role Phone Endy SMITH, Poonam Primary Care Provider Unavail Josep Westbrook Unavailable [phone] REASON FOR VISIT Cancel Encounters Encounter Location Date Provider Diagnosis [facility] [address] [place] [address] 03/21/2024 Josep Lenz Plan Of Treatment No Information Progress Notes * RAINYousifDOB:1945 (79 yo M)Acc No.[id number]:03/21/2024 Patient:?Yousif RAIN :1945???Age:79 Y???Sex:Male Address:[address] [place] [address], [place], [address] * true * Date:? Generated for Suhasi justo/Isaias/eTransmitting on:?04/19/2024 01:34 PM EST
--- OUTSIDE RECORDS SUMMARY | 2024-04-19 13:35 | XMS_ITS ---
Author Organization [facility] Address [address] [facility] [place] [address] Care Team Providers Care Vascular Physician Name Role Phone Endy SMITH, Poonam Primary Care Provider Unavail able Josep Lenz Unavailable [phone] Allergies No Known Allergies REASON FOR VISIT [...] Polyneuropathy due to type 2 diabetes mellitus (127807914) Type 2 diabetes mellitus with diabetic polyneuropathy (E11.42) Active confirmed Problem Acquired hammer toe of right foot (1936696142074433 ) Other hammer toe(s) (acquired), right foot (M20.41) Active confirmed Problem Acquired hammer toe of left foot (6331339815984962 ) Other hammer toe(s) (acquired), left foot (M20.42) Active confirmed Vital Signs Height 6 ft 2 in in 12/22/2023 Weight 210 lbs lbs 12/22/2023 BMI 26.96 kg/m2 12/22/2023 Procedures Procedure Date Ordered Date Performed Result Body Sit e 45726-CGVAPJR NAIL, 6 OR MORE 12/22/2023 N/A 26146-NTFI SKIN LESIONS, OVER 4 12/22/2023 N/A Encounters Encounter Location Date Provider Diagnosis [facility] [place] [address] [place] [address] 12/22/2023 Josep Lenz Type 2 diabetes mellitus [...] INSTRUCTIONS.pdf) Pending Test Test Name Order Date 87267-YMNRDGU NAIL, 6 OR MORE 12/22/2023 14929-BVUU SKIN LESIONS, OVER 4 12/22/19 24 Next [...] use of a nail nipper and/or dremel-type external grinder, to a more viable healthy nail plate or bed tissue 6-10. Silver nitrate used for any petechial bleeding as necessary. Definitive antifungal treatment options have been reviewed and discussed with the patient. The patient chooses, no pharmaceutical tx - 7[address]75 Keratoma Treatment Parring or Cutting o f Benign Hyperkeratotic Lesion(s) (-57) More than 4 Lesions - The Benign hyperkeratotic lesions, as described above were pared, and/or cut utilizing a sterile 15 blade, tissue nippers, and/or dremel - 62728 Progress Notes * Yousif RAINDOB:1945 (78 yo M)Acc No.[id number]:12/22/2023 Progress Notes Patient:?Yousif Rain Provider:?Josep Lenz DPM :1945???Age:78 Y???Sex:Male Armaan e:12/22/2023 Address:[address] [place] [address] [address], [id number] Pcp:Poonam Schumacher MD Subjective: * Chief Complaints: [...] use of a nail nipper and/or dremel-type external grinder, to a more viable healthy nail plate or bed tissue 6-10. Silver nitrate used for any petechial bleeding as necessary. Definitive antifungal treatment options have been reviewed and discussed with the patient. The patient chooses, no pharmaceutical tx - 50859.?Keratoma Treatment:?Parring or Cutting of Benign Hyperkeratotic Lesion(s)?(-57) More than 4 Lesions - The Benign hyperkeratotic lesions, as described above were pared, and/or cut utilizing a sterile 15 blade, tissue nippers, and/or dremel - 33549.? * Procedure Codes:?11002 DEBRI DE NAIL, 6 OR MORE, Modifiers: XS 04732 TRIM SKIN LESIONS, OVER 4, Modifiers: XS [...] Lenz DPM Date:?2023 Generated for Tayo kemp/Isaias/[place]remayne on:?04/19/2024 01:35 PM EST History and Physical Notes * [...]
--- OUTSIDE RECORDS SUMMARY | 2024-04-19 13:36 | XMS_ITS | Patient Health Record ---
[facility] Organization [facility] Address [address] [facility] [address] Care Team Providers Care Thrill Performer Name Role Phone Endy SMITH, Poonam Primary Care Provider Unavail able Josep Lenz Unavailable [phone] Allergies No Known Allergies Reason For Referral [...] Problem Acquired hammer toe of right foot (7556924120491215 ) Other hammer toe(s) (acquired), right foot (M20.41) Active confirmed Problem Acquired hammer toe of left foot (0413661036404942 ) Other hammer toe(s) (acquired), left foot (M20.42) Active confirmed Problem Polyneuropathy due to type 2 diabetes mellitus (323484751) Type 2 diabetes mellitus with diabetic polyneuropathy (E11.42) Active confirmed Vital Signs Height 6 ft 2 in in 12/22/2023 Weight 210 lbs lbs 12/22/2023 BMI 26.96 kg/m2 12/22/2023 Procedures Procedure Date Ordered Date Performed Result Body Sit e 48165-XOAQZFG NAIL, 6 OR MORE 12/22/2023 N/A 72825-AHUN SKIN LESIONS, OVER 4 12/22/2023 N/A Encounters Encounter Location Date Provider Diagnosis [facility] [address] [address] 12/22/2023 Josep Lenz Type 2 diabetes mellitus with diabetic polyneuropathy E11.42 ; Tinea unguium B35.1 ; Other hammer toe(s) (acquired), right foot M20.41 and Other hammer toe(s) (acquired), left foot M20.42 [facility] [address] [address] 03/21/2024 Josep Lenz Assessments Encounter Date Diagnosis [...] Treatment Pending Test Test Name Order Date 51657-SOGYMJW NAIL, 6 OR MORE 12/22/2023 72480-MCXD SKIN LESIONS, OVER 4 12/22/19 24 Insurance Providers Payer Name Payer Address Payer Phone Subscriber Number Group Number Insured Name Patient Relationship to Insured Coverage Start Date Coverage End Date [facility] [employer] Claims [address] [place] [phone] [id number] Yousif Mcintosh Self - patient is the insured Medical (General) History Medical History History ICD Code Diabetic Epilepsy Gout Stroke Hypercholesterolemia Surgical History Surgery Date(Month/Year)
== END 2024-04-19 11:49 | disposition home or self-care (01) ==
LOC: HO.ACS 11:49
PROVIDERS: PCP Internal Medicine; Visit Provider Internal Medicine
DX: Z79.01 Long term (current) use of anticoagulants (principal)

== ENCOUNTER → 2024-04-19 11:49 | Outpatient (BNVA) | payer OTHER, SELFPAY | PROVIDERS: PCP Internal Medicine; Visit Provider Internal Medicine | DX: I48.0 Paroxysmal atrial fibrillation (principal); Z86.73 Personal history of transient ischemic attack (TIA), and cerebral infarction without residual deficits; Z79.01 Long term (current) use of anticoagulants; Z51.81 Encounter for therapeutic drug level monitoring | CPT/HCPCS: 99211 ==

== ENCOUNTER → 2024-04-26 14:55 | Outpatient (BNVA) | payer OTHER, SELFPAY | PROVIDERS: PCP Internal Medicine; Visit Provider Internal Medicine ==

== ENCOUNTER → 2024-05-03 14:19 | Outpatient (BNVA) | payer OTHER, SELFPAY | PROVIDERS: PCP Internal Medicine; Visit Provider Internal Medicine ==

== ENCOUNTER → 2024-05-10 10:12 | Outpatient (BNVA) | payer OTHER, SELFPAY | PROVIDERS: PCP Internal Medicine; Visit Provider Internal Medicine ==

== ENCOUNTER 2024-05-17 12:33 | Outpatient (AMB) | payer OTHER, SELFPAY ==
--- OUTSIDE RECORDS SUMMARY | 2024-05-17 12:52 | XMS_ITS | Data Portability ---
Author Organization [facility] Address [address] [place] [id number] Care Team Providers Care Training Development Director Name Role Phone HIM FARA OTHER Assessment Encounter Date Assessment Date Assessment LastModified by Organization Details LastModified Time 02/14/2024 02/14/2024 As noted, we were called to see this patient regarding concerns of catheter discomfort. Evaluation in the field was performed by my hop grower colleague, as noted above, I provided real-time direction and supervision for this visit. The evaluation revealed same. Impression: 79yo/m with multiple chronic medical problems as above, on coumadin and asa, referred for evaluation for goldman cathter discomfort. Pt was seen in ED approx 5 days ago for new urinary retention, goldman catheter placed at that time, unknown if diagnosed with UTI, not on abx at this time. Today PLASTICS SEASONER OPERATOR noted that pt began to have discomfort at the catheter insertion site as well as some red tinged urine. Referred for evaluation. For medic in home pt is awake, alert, in no distress. No associated fevers/chills, nausea/vomitin g, weakness/fatig ue. No abdominal or suprapubic pain or distension. Urinary catheter is in place, no redness/swelli ng/warmth/disc harge noted at the penis. Otherwise normal exam. Goldman catheter bag has some reddish urine, on large clots, no clots in tubing. It continues to drain currently. They deny other ROS. Plan: Unclear cause of pt's discomfort at this time, he is at risk of catheter related UTI but without any fevers, abdominal or suprapubic discomfort, or other signs of obvious urine infection I believe it's reasonable to wait on urine culture at this time. Pt's PCP is prescribing some pain medication for his discomfort that they are awaiting to start. Again no flank pain, abdominal pain, testicular pain. No fevers or other systemic symptoms of illness. I have a lower suspicion at this time for an occult emergency medical condition such as aortic dissection, AAA, pyelonephritis , testicular torsion, helen's gangrene, sepsis. Instructed to reach out immediately with any acute worsening or change in symptoms which they understand, as well as followup with PMD in 24-48 hours for recheck. Primary care, consider urine culture results and recheck if symptoms resolved. Disposition: We discussed the diagnostic uncertainty of home visits and the risk associated with this. In this case, the patient and I felt this to be an acceptable and reasonable amount of risk given the benefit of avoiding an ED visit. We discussed the need to seek care urgently/emerg ently in the setting of any new or worsening serious symptoms [email or web address] Not available 02/14/2024 13:43:37 Plan of Treatment Reminders Order Date Submit Date Provider Last Modified By Organization Details Last Modified Time Details Appointments None recorded. Lab BMP, serum or plasma 2023 024 [facility], [address] [place] [address], [id number], 4 13:55:24 hemoglobin + hematocrit, blood 2023 024 [facility], [address] [place] [address], [id number], 14:07:51 culture, urine 2023 024 L[facility], [address] [facility], [place], [address], 4 12:06:07 urinalysis, dipstick 2023 024 rsullivan [facility], [address] [place] [address], [id number], 13:38:24 Referral None recorded. Procedures None recorded. Surgeries None recorded. Imaging None recorded. Medication Orders Tylenol 325 mg tablet 2021 022 [facility], [address] [facility], [place], [place], [id number], 12:41:29 clotrimazol e 1 % topical cream 2023 024 [facility][id number], [address] [place], [address], 4 13:20:20 prednisone 20 mg tablet 2023 024 [facility], [address] [place] [address], [id number], 4 13:20:13 prednisone 20 mg tablet 2023 024 [facility] #[id number], [address] [place], [address], 13:20:19 Patient TargetsNo targets recorded. Patient InstructionsNo instructions recorded. Reason for Referral None Reported. Results Created Date Observation Date Name Description Value Unit Range Abnormal Flag Note LastModifiedBy Organization Detail LastModifiedTime 09/22/1909/22/2023 hemog lobin + hemat ocrit , blood Hemoglobin 13.7 Not Available [facility] [address] [place] [address], [id number], 09/22/2023 13:55:39 09/22/19 24 09/22/2023 hemog lobin + hemat ocrit , blood Hematocrit 40 Not Available [facility] [address] [place] [address], [phone], 09/22/2023 13:55:39 09/22/19 24 09/22/2023 BMP, serum or plasm a BUN 21 Not Available [facility] [address], [address], 09/22/2023 13:10:34 09/22/19 24 09/22/2023 BMP, serum or plasm a Ca 1.07 Not Available [facility] [address], [address], 09/22/2023 13:10:34 09/22/19 24 09/22/2023 BMP, serum or plasm a CI- 107 Not Available [facility] [address], [address], 09/22/2023 13:10:34 09/22/19 24 09/22/2023 BMP, serum or plasm a CRE 1.57 Not Available [facility] [address], [address], 09/22/2023 13:10:34 09/22/19 24 09/22/2023 BMP, serum or plasm a GLU 146 Not Available [facility] [address], [address], 09/22/2023 13:10:34 09/22/19 24 09/22/2023 BMP, serum or plasm a K+ 4.7 Not Available [facility] [address], [address], 09/22/2023 13:10:34 09/22/19 24 09/22/2023 BMP, serum or plasm a Na+ 146 Not Available [facility] [address], [address], 09/22/2023 13:10:34 09/22/19 24 09/22/2023 BMP, serum or plasm a tCO2 27 Not Available [facility] [address], [address], 09/22/2023 13:10:34 02/14/20 24 02/17/2024 URINE CULTU RE,CO MPREH ENSIV E urine culture,comp rehensive Final report abnormal Not Available [facility]) [address] [facility], [place], [address], 02/17/2024 10:06:10 02/14/20 24 02/17/2024 URINE CULTU RE,CO MPREH ENSIV E result 1 Proteu s mirabi lis abnormal Great er than 100,0 00 colon y formi ng units per mL Susce ptibi lity profi le is consi stent with a proba ble ESBL. Not Available [facility] ([facility]) [address] [facility], [place], [address], 02/17/2024 10:06:10 02/14/2002/17/2024 URINE CULTU RE,CO MPREH ENSIV E antimicrobia l susceptibili ty Commen t S = Susce ptibl e; I = Inter media te; R = Resis tant P = Posit vadim; N = Negat vadim MICS are expre ssed in micro grams per mL Antib iotic RSLT# 1 RSLT# 2 RSLT# 3 RSLT# 4 Amoxi cilli n/Cla vulan ic Acid S Ampic illin R Cefaz sudha R Cefep andrew R Ceftr iaxon e R Cefur oxime R Cipro floxa lolita R Ertap enem S Genta micin S Merop enem S Nitro furan toin R Piper acill in/Ta zobac jackson S Tetra cycli ne R Tobra mycin S Trime thopr im/Kumar lfa S Not Available [facility] ([facility]) [address] [facility], [place], [address], 02/17/2024 10:06:10 Result Notes None recorded. Medical Equipment None Reported. Allergies No known drug allergies Medications Name Sig Start Date Stop Date Status Note LastModified by Organization Details LastModified Time medbox status USE DIRECTED active Not Available Not Available No t Available hydrocortiso ne 5 mg tablet TAKE TWO TABLETS EVERY MORNING active Not Available Not Available No t Available atorvastatin 40 mg tablet TAKE ONE TABLET EVERY NIGHT AT BEDTIME active Not Available Not Available N ot Available metformin 500 mg tablet TAKE ONE TABLET EVERY MORNING active Not Available Not Available No t Available acetaminophe n 325 mg tablet TAKE TWO TABLETS EVERY 6 HOURS NEEDED active Not Available Not Available No t Available albuterol sulfate 2.5 mg/3 mL (0.083 %) solution for nebulization USE ONE AMPULE USING A NEBULIZER EVERY 6 HOURS NEEDED active Not Available Not Available No t Available sulfamethoxa zole 400 mg-trimethop rim 80 mg tablet TAKE ONE TABLET EVERY TWELVE HOURS UNTIL FINISHED active Not Available Not Available No t Available prednisone 20 mg tablet TOME 1 TABLETA POR V A ORAL TODOS LOS D POR 4 D active Not Available Not Available No t Available alclometason e 0.05 % topical cream active Not Available Not Available Not Available warfarin 2.5 mg tablet TAKE ONE TABLET EVERY DAY active Not Available Not Available No t Available amlodipine 2.5 mg tablet TAKE ONE TABLET EVERY MORNING active Not Available Not Available No t Available betamethason e valerate 0.1 % lotion APPLY TO THE AFFECTED AREA(S) (LEG RASH) TWICE DAILY FOR 10 DAYS active Not Available Not Available Not Available allopurinol 100 mg tablet TAKE ONE TABLET EVERY MORNING active Not Available Not Available No t Available aspirin 81 mg tablet,delay ed release TAKE ONE TABLET EVERY MORNING active Not Available Not Available No t Available famotidine 20 mg tablet TAKE ONE TABLET EVERY MORNING NEEDED HEARTBURN active Not Available Not Available No t Available magnesium oxide 400 mg (241.3 mg magnesium) tablet TAKE ONE TABLET EVERY MORNING active Not Available Not Available No t Available tamsulosin 0.4 mg capsule TAKE ONE CAPSULE EVERY NIGHT AT BEDTIME active Not Available Not Available N ot Available OneTouch Ultra Test strips TEST BLOOD SUGAR ONCE DAILY active Not Available Not Available No t Available ferrous sulfate 325 mg (65 mg iron) tablet TAKE 1 TABLET EVERY MORNING active Not Available Not Available No t Available warfarin 5 mg tablet TAKE ONE TABLET THREE TIMES A WEEK active Not Available Not Available No t Available omeprazole 20 mg capsule,jerry yed release TAKE ONE CAPSULE BY MOUTH EVERY MORNING active Not Available Not Available No t Available allopurinol 300 mg tablet TAKE ONE TABLET EVERY MORNING active Not Available Not Available No t Available levetiraceta m 750 mg tablet TAKE ONE TABLET TWICE DAILY IN THE MORNING AND AT BEDTIME active Not Available Not Available N ot Available mirtazapine 15 mg tablet TAKE ONE TABLET EVERY NIGHT AT BEDTIME active Not Available Not Available N ot Available metoprolol succinate ER 25 mg tablet,exten ded release 24 hr TAKE ONE-HALF TABLET EVERY MORNING active Not Available Not Available No t Available warfarin 1 mg tablet TOME NORTH TABLETA TODOS LOS D active Not Available Not Available No t Available fluoxetine 20 mg capsule TAKE 1 CAPSULE EVERY MORNING active Not Available Not Available No t Available clotrimazole 1 % topical cream APLIQUE AL QUINCY AFECTADA DOS VECES AL D A EN LA MA YANI Y EN LA NOCHE active Not Available Not Available Not Available amoxicillin 875 mg-potassium clavulanate 125 mg tablet TAKE ONE TABLET BY MOUTH TWICE DAILY UNTIL FINISHED active Not Available Not Available No t Available amoxicillin 500 mg-potassium clavulanate 125 mg tablet TAKE ONE TABLET THREE TIMES DAILY UNTIL FINISHED active Not Available Not Available No t Available magnesium 250 mg (as magnesium oxide) tablet TAKE TWO TABLETS THREE TIMES DAILY IN THE MORNING, EVENING AND BEDTIME active Not Available Not Available No t Available enoxaparin 40 mg/0.4 mL subcutaneous syringe INJECT 40 MG (0.4 ML) SUBCUTANEOU SLY EVERY DAY FOR THREE DAYS active Not Available Not Available N ot Available FreeStyle Hermon Lite kit USE DIRECTED active Not Available Not Available No t Available Vitamin D3 50 mcg (2,000 unit) tablet TAKE ONE TABLET EVERY MORNING active Not Available Not Available No t Available Myrbetriq 25 mg tablet,exten ded release TAKE ONE TABLET EVERY MORNING active Not Available Not Available No t Available Jardiance 10 mg tablet TAKE ONE TABLET EVERY MORNING active Not Available Not Available No t Available OneTouch Ultra2 Meter TEST BLOOD SUGAR ONCE DAILY active Not Available Not Available No t Available OneTouch Delica Plus Lancet 33 gauge TEST BLOOD SUGAR ONCE DAILY active Not Available Not Available No t Available Vitals Date Recorded Oxygen saturation Oxygen saturation in Arterial blood by Pulse oximetry Body temperature Respiratory rate Heart rate Body weight Systolic blood pressure Diastolic blood pressure Provider Name and Address Organization Details Last Updated DateTime 4 100 % 100 % 98.9 [degF] 16 /min 68 /min 46755.3 2 g 104 mm[Hg] 74 mm[Hg] Not Available [employer] 4 13:04:35 Date Recorded Body height Body weight Respiratory rate Body temperature Oxygen saturation Oxygen saturation in Arterial blood by Pulse oximetry Heart rate Systolic blood pressure Diastolic blood pressure Provider Name and Address Organization Details Last Updated DateTime 4 187.96 cm 748166. 608 g 16 /min 98.6 [degF] 99 % 99 % 80 /min 116 mm[Hg] 71 mm[Hg] Not Available [facility] [employer] 4 13:29:45 Date Recorded Heart rate Provider Name an d Address Organization Details Last Updated DateTime 07/15/2021 64 /min Hany Sandoval [address] [facility], [place], [address], [place] - [employer], [employer] 07/15/2021 22:59:57 Date Recorded Respiratory rate Provider Name a nd Address Organization Details Last Updated DateTime 07/15/2021 16 /min Hany Sandoval [address] [facility],[address], [place], [address], [place] - [employer], [employer] 07/15/2021 22:59:59 Date Recorded Oxygen saturation Oxygen saturation in Arterial blood by Pulse oximetry Provider Name and Address Organization Details Last Updated DateTime 07/15/2021 96 % 96 % Prakash Willis MD [address] [facility],[address] [facility], [place], [address], [place] [facility] [employer], [employer] 07/15/2021 23:00:02 Date Recorded Body temperature Provider Name a nd Address Organization Details Last Updated DateTime 07/15/2021 98.4 [degF] Hany Sandoval [address] [place] [address],[address] [facility], [place], [address], [place] [facility] [employer], [employer] 07/15/2021 23:00:07 Date Recorded Oxygen saturation Oxygen saturation in Arterial blood by Pulse oximetry Respiratory rate Heart rate Systolic blood pressure Diastolic blood pressure Provider Name and Address Organization Details Last Updated DateTime 2 95 % 95 % 16 /min 76 /min 131 mm[Hg] 78 mm[Hg] Not Available [facility] - [employer] 2 12:31:14 Date Recorded Heart rate Oxygen saturation Oxygen saturation in Arterial blood by Pulse oximetry Respiratory rate Systolic blood pressure Diastolic blood pressure Provider Name and Address Organization Details Last Updated DateTime 2 76 /min 95 % 95 % 16 /min 131 mm[Hg] 78 mm[Hg] Not Available [facility] - production 12:54:45 Date Recorded Systolic blood pressure Diastolic blood pressure Provider Name and Address Organization Details Last Updated DateTime 07/15/2021 116 mm[Hg] 79 mm[Hg] Prakash Willis MD [address] [facility],[address], [place], [address], [place], [employer] 07/15/2021 22:59:54 Social History None recorded. Functional Status None recorded. Mental Status None recorded. Family History Nothing Reported. Medical History No medical history recorded. Past Encounters Encounter ID Performer Location Encounter Start Date Encounter Closed Date Diagnosis/Indication Diagnosis SNOMED-CT Code Diagnosis ICD10 Code Diagnosis Note [id number] Prakash Willis MD [facility] [address] [place] [phone] 07/15/2021 22:59:29 12/07/2021 16:05:03 Blister 644997797 R23.8 No red flag symptoms- Has close f/u with dermatolog y; may need drainage (likely has collection of blood in blister)- Does not wish to go to urgent care/ED for drainage at this time- Has close f/u with PCP as well- Advised to use bandage to wrap toe [id number] Prakash Willis MD [facility] [address] [place] [phone] 03/09/2022 12:31:12 03/11/2022 10:44:07 Pain of right knee joint 9472204430 83440 M25.561 Can bear weight. Cannot tolerate NSAIDS; will rx tylenol and encourage f/u with PCP in 1 week [id number] ROSY DUCKWORTH MD [facility] - [facility] [address] [place] [phone] 09/22/2023 13:04:26 09/22/2023 21:08:47 Contact dermatitis 11464346 L25.9 Evaluation in the field was performed by my hop grower colleague, as noted above, I provided real-time direction and supervisio n for this visit. The evaluation revealed 78 yo male with pruritic rash on the right upper franz . Denies fever, chills, tender to palpation, warmth, erythema ( outside the rash ) , swelling. Has been spaying hydrogen peroxide ( that why the weeping on the photo, no weeping after it was dried out with a towel and observed for 15 min while the lab work was being done ). No other areas with similar findings. Denies any contact with plants, insect bites, new detergent. Pt is diabetic.B MP remarkable for elevated Creat at 1.57 ( unknown baseline ) and borderline K at 4.7 Impression :Contact dermatitis Plan:-Give n that the rash not severe and pt diabetic will start Prednisone 20 mg daily x5 days ( first dose given by the hop grower) -Clotrimaz ole cream 1 %-Red flags discussed with the patient-re commend f/u with PCP within 1 week. Primary care, considerre peating the renal function . if creat worse and lesion worse, consider possibilit y of vasculitis . Dispositio n: We discussed the diagnostic uncertaint y of home visits and the risk associated with this. In this case, the patient and I felt this to be an acceptable and reasonable amount of risk given the benefit of avoiding an ED visit. We discussed the need to seek care urgently/e mergently in the setting of any new or worsening serious symptoms, particular ly fever, chills, worsening of the rash, redness warm to the touch, painful to palpation, CP, SOB, weeping from the leg or any other concerns. [id number] Manoj Angela MD Main - [address] [phone] 02/14/2024 13:29:41 02/14/2024 15:51:41 Indwelling urethral urinary catheter in situ [id number] Z96.0 Health Concerns Section Related Observation LastModified by Organization Detai ls LastModified Time None Recorded Concern Status LastModified by Organization Details LastModified Time None Recorded Advance Directives Directive None Recorded Payers Encounter Date Sequence Insurance Name Policy Number Policy Sims Covered Member ID Sims Member ID Guarantor Name 07/15/2021 1 [facility] [employer] - DOS PRIOR TO 2022 - DUAL ELIGIBLE (MEDICARE REPLACEMENT/ADV ANTAGE - HMO) Yousif Mcintosh [id number] Yousif Mcintosh 03/09/2022 1 [facility] [employer] - DOS PRIOR TO 2022 - DUAL ELIGIBLE (MEDICARE REPLACEMENT/ADV ANTAGE - HMO) Yousif Mcintosh [id number] Yousif Mcintosh 09/22/2023 1 [facility] [employer] - DOS ON OR AFTER 2022 - DUAL ELIGIBLE - ALF OPTIONS AND ONE CARE (MEDICARE REPLACEMENT/ADV ANTAGE - HMO) Yousif Mcintosh [id number] Yousif Mcintosh 02/14/2024 1 [facility] [employer] - DOS ON OR AFTER 2022 - DUAL ELIGIBLE - ALF OPTIONS AND ONE CARE (MEDICARE REPLACEMENT/ADV ANTAGE - HMO) Yousif Mcintosh [id number] Yousif Mcintosh Notes Date Note Type Note Provider Name and Address Organization Details Recorded Time 07/15/2021 text/html Per hop grower an d patient:- patient states that he has a blister on his big toe that he has had for about a week and is not sure how he got it. the blister is large approx 3/4 inch on the tip of his big toe. blister is hard and dark. patient denies any weeping or discharge from the blister and states it has been black.- no evidence of cellulitis- no purulent drainage- no fevers Prakash Willis MD [address] [facility],[address], [place], [address], [facility] [employer] 07/15/2021 23:02:30 03/09/2022 text/html [facility] Nursing Assessment: Reason For Request: Pain in neck and right knee Chief Complaints: Pain PMH: CHF, Diabetes, Hypertension Allergies: No Known Comments: PLASTICS SEASONER OPERATOR calling for member to have [facility] visit for atraumatic L knee pain x 2 days no OTC's via [employer] int ................... ................... ................... ................... ................... ................... ................... ........ Manager Social Services Note: Complaint of knee pain x2 days, pt twisted exiting a vehicle and felt a pop. Pt called looking for pain management, no deformities noted no swelling good color to the feet (+) pulses, pt is able to bare weight to transfer, C contacted and ordered 500mg PO Tylenol and was administered, pt educated on RICE techniques and told to follow up with PCP if the pain doesn? t change. ................... ................... ................... ................... ................... ................... ................... ........ Disposition: Fulfilled Prakash Willis MD [address] [facility],[address], [place], [address], [place] [employer] 03/09/2022 17:17:03 09/22/2023 text/html CRC Nurse Triage Notes (Clarissa Rae): Reason For Request: Pt's PLASTICS SEASONER OPERATOR reporting right leg edema with discharge going on 1 week, with some swelling, redness and discharge Chief Complaints: Edema, Cellulitis PMH: CHF, Diabetes, Hypertension Allergies: No Known Comments: Members PLASTICS SEASONER OPERATOR calling in to place a referral, member identified via name and . Member with probable cellulitis. Member with redness and edema to right lower leg for a week. Per PLASTICS SEASONER OPERATOR skin is dry and weeping, +pitting, denies warmth, no fever/chills, not on any diuretics. Member with hx of cellulitis. Member would like to be evaluated. Manager Social Services POC Test Results from Jace Arroyo [facility] (13:12:53) pH: 7.406 pH units pCO2: 38.3 mmHg pO2: 27.2 mmHg Na: 141 mmol/L K: 4.7 mmol/L iCa: 1707 mmol/L Cl: 107 mmol/L TCO2: 23.6 mEq/L Hct: 40 % Hb: 13.7 g/dL Glu: 146 mg/dL Lac: 1.22 mmol/L Cr: 1.57 mg/dL BUN: 27 mg/dL A ................... ................... ................... ................... ................... ................... ................... ........ Manager Social Services Note From Jace Arroyo: Pt co rash/bug bites right below right knee. Pt using hydrogen peroxide spray on it. Pt sts it? s very itchy and not painful or warm to touch. Pt denies fevers, sob, NVD. Pt sts has not been outside. Baseline vitals assessed, no wheeping in area of rash. Minor edema if any. Area was not hot to the touch. POc bloodwork unremarkable. Lungs clear. [facility] [place] and 20mg prednisone po given and RX called in for prednisone and Clotrimazole 1% cream twice a day. Pt advised to monitor if worsening or has pain to call back. Pt advised to follow up with pcp. Pt advised to monitor BS while on prednisone. Pt education on signs indicating the ER. ................... ................... ................... ................... ................... ................... ................... ........ Disposition: Ame DUCKWORTH MD [address] [place] [address],[address], [place], [phone], [employer] 09/22/2023 14:08:54 02/14/2024 text/html CRC Nurse Triage Notes (Josephine Lilly): Reason For Request: PLASTICS SEASONER OPERATOR [facility] calling in, pt experiencing pain near catheter site Chief Complaints: Urinary catheter/nephrostom y tube problems PMH: Congestive Heart Failure, Hypertension, Stroke, Epilepsy/Seizure Disorder, Diabetes Mellitus Type 2 Comments: Went to ER on Monday for urinary retention. New goldman catheter placed. Having pain at insertion site that started today with hematuria. Denies fever, low back pain, or abdominal pain. On coumadin. Manager Social Services Organization Information for Lacho Andrews Business Legal Name: [employer]? Address: [address] [place] [address], Tax Specialist: Kingsley GODOY No.: [id number] Manager Social Services POC Test Results from Lacho Andrews Blood Glucose Measurement (13:25:24) Blood Glucose: 181 mg/dL Urine Dipstick (13:25:27) Urine leukocytes: + TAMMY Urine nitrites: - NIT Urine urobilinogen: - URO Urine protein: ++ PRO Urine pH: 6.5 pH Urine blood: +++ BLO Urine specific gravity: 1.010 SG Urine ketones: +/- KET Urine bilirubin: - CAITLIN Urine glucose: ++++ GLU ................... ................... ................... ................... ................... ................... ................... ........ Manager Social Services Note From Lacho Andrews: [facility] makes pt contact, 79 yom w/ c/c of urinary catheter insertion site pain and hematuria.[facility] obtains pt consent. Vital signs are gathered and urine sample is obtained for testing and culture from catheter tubing. Urine analysis is performed and pt is physically assessed. He is conscious, alert, and oriented and answering all questions appropriately through his PLASTICS SEASONER OPERATOR, who is translating for the him. Pt denies cp, sob, n/v/d, or abdominal/flank or back pain. He points to the insertion sight of the catheter at the tip of his penis as the location of hi pain. He denies radiation. Physical assessment reveals nothing remarkable and insertion site is well appearing w/o redness, swelling, discharge, or streaking. Hematuria is noted in his catheter bag and PLASTICS SEASONER OPERATOR reports a strong ammonia smell to his urine when she emptied his bag this morning.[facility] [place] [facility] [place] the above assessment and findings. [facility] [place] urine to be sent to the lab. Pt is informed he will receive test results in a couple days. [facility] ensures pt and caregiver have no further questions or concerns. [facility] drops urine sample off at [facility] is clear. Report completed by KRISTAL Andrews [id number] [facility] Orders: culture, urine: Performed ................... ................... ................... ................... ................... ................... ................... ........ [facility] Consulted: Manoj Angela ................... ................... ................... ................... ................... ................... ................... ........ Disposition: Ame Angela MD [address], [place], [address], [employer] 02/14/2024 14:39:55
--- OUTSIDE RECORDS SUMMARY | 2024-05-17 12:52 | XMS_ITS ---
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) ACTIVE 01/01/2024 UNSPECIFIED ATRIAL FIBRILLATION (I48.91 - ICD-10-CM) A CTIVE 01/01/2024 IRON DEFICIENCY ANEMIA, UNSPECIFIED (D50.9 - ICD-10-CM ) ACTIVE 01/01/2024 HYPERLIPIDEMIA, UNSPECIFIED (E78.5 - ICD-10-CM) ACTIVE 01/01/2024 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 (N40.0 - ICD-10-CM) ACTIVE 01/01/2024 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 ) ACTIVE 01/01/2024 ANXIETY DISORDER, UNSPECIFIED (F41.9 - ICD-10-CM) ACTI VE 01/01/2024 PNEUMONIA DUE TO CORONAVIRUS DISEASE 2019 (J12.82 - ICD-10-CM) ACTIVE 01/01/2024 DEPRESSION, UNSPECIFIED (F32.A - ICD-10-CM) ACTIVE 01/01/2024 PERSONAL HISTORY OF TRANSIEN T ISCHEMIC ATTACK (TIA), 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) ACTIVE 01/01/2024 DYSPHAGIA, OROPHARYNGEAL PHASE (R13.12 - ICD-10-CM) AC TIVE 01/01/2024 HEMATURIA, UNSPECIFIED (R31.9 - ICD-10-CM) ACTIVE 01/01/2024 DIFFICULTY IN WALKING, NOT E LSEWHERE CLASSIFIED (R26.2 - ICD-10-CM) ACTIVE 01/01/2024 PERSONAL HISTORY OF COVID-19 (Z86.16 - ICD-10-CM) ACTI VE 12/27/2023 MUSCLE WEAKNESS (GENERALIZED) (M62.81 - ICD-10-CM) ACT DELFINO 12/27/2023 OTHER VIRAL PNEUMONIA (J12.89 - ICD-10-CM) ACTIVE 12/27/2023 ABNORMAL POSTURE (R29.3 - ICD-10-CM) ACTIVE 12/16 Encounters Encounter Performer Performer Role Encounter Diagnoses Location Date Leave - [facility]) - Acute care hospital [facility] 01/01/2024 07:51 pm EDT - 01/15/2024 07:15 pm EDT Discharge - Discharged to home or self care - Home (Agency Unknown) - Private home/apt. with home health services [facility] 01/18/2024 02:28 pm EDT - 01/23/2024 01:05 pm EDT Reason For Referral Hematuria Immunizations Vaccine Date SARS-COV-2 (COVID-19) 06/11/2020 12:00 a m EST SARS-COV-2 (COVID-19 BOOSTER) 07/09/2020 12:00 am EDT influenza, unspecified formulation 03/30 12:00 am EST Social History
--- OUTSIDE RECORDS SUMMARY | 2024-05-17 12:52 | XMS_ITS | Clinical Summary ---
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 Name Role Phone Unavailable Primary Care Provider Unavailabl e Social History Tobacco Use Types Packs/Day Years Used Date Smoking Tobacco: Never Assessed Sex and Gender Information Value Date Recorded Sex Assigned at Male 02/14/2022 10:22 AM EDT Legal Sex Male 10:22 AM EDT Gender Identity Not on file Sexual Orientation Not on file Last Filed Vital Signs Vital Sign Reading Time Taken Comments Blood Pressure 132/70 11/26/2019 12:08 AM EDT Pulse 64 11/26/2019 12:08 AM EDT Temperature - - Respiratory Rate - - Oxygen Saturation - - Inhaled Oxygen Concentration - - Weight 116 kg (255 lb) 11/26/2019 12:08 AM EDT Height 188 cm (6' 2 ) 11/26/2019 12:08 AM EDT Body Mass Index 32.74 11/26/2019 12:08 AM EDT Plan of Treatment Health Maintenance Due Date Last Done Comments Depression Screening 1945 Lipid Panel 1946 Alcohol/Substance Use Screening 1958 Tobacco Screening 1957 DTaP/Tdap/Td Vaccines (1 - Tdap) 1965 Zoster Vaccines (1 of 2) 01/20/1996 Pneumococcal Vaccine: 50+ Ye ars (2 of 2 - PCV) 05/01/2013 05/01/2012 RSV Patients and Pa tients Aged 60 years or older (1 - 1-dose 75+ series) 2021 COVID-19 Vaccine (1 - 2023-2 5 season) 2023 Influenza Vaccine (#1) 2023 03/22/2006 HIB Vaccines Aged Out No longer eligi ble based on patient's age to complete this topic HPV Vaccines Aged Out No longer eligi ble based on patient's age to complete this topic Hepatitis A Vaccines Aged Out No long er eligible based on patient's age to complete this topic Hepatitis B Vaccines Aged Out No long er eligible based on patient's age to complete this topic IPV Vaccines Aged Out No longer eligi ble based on patient's age to complete this topic Meningococcal Vaccine Aged Out No michelle corine eligible based on patient's age to complete this topic RSV under 20 months Aged Out No longe r eligible based on patient's age to complete this topic Rotavirus Vaccines Aged Out No longer eligible based on patient's age to complete this topic
--- OUTSIDE RECORDS SUMMARY | 2024-05-17 12:52 | XMS_ITS | Clinical Summary ---
Author Organization [facility] Address [address] [place] [address] Phone Care Team Providers Care Firer Glost Kiln Name Role Phone Poonam Hernandez MD Primary Care Provider [phone] Allergies Active Allergy Reactions Criticality Noted Date Comments Lisinopril Other (see comments) 06/23/2021 Medications metoprolol tartrate 25 MG tablet Take 0.5 tablets by mouth 1 (one) time each day Active metFORMIN (GLUCOPHAGE) 500 MG tablet Take 1 tablet by mouth in the morning and 1 tablet in the evening. Active levETIRAcetam (KEPPRA) 750 MG tablet Take 1 tablet by mouth in the morning and 1 tablet in the evening. Active hydrocortisone (CORTEF) 10 MG tablet Take 1.5 tablets by mouth Active FLUoxetine (PROzac) 20 MG capsule Take 1 capsule by mouth every morning Active amLODIPine (NORVASC) 2.5 MG tablet Take 1 tablet by mouth 1 (one) time each day Active omeprazole (PriLOSEC) [address] capsule Take 1 capsule by mouth 1 (one) time each day Active aspirin (ST SYDNIE) 81 MG EC tablet Take 1 tablet by mouth 1 (one) time each day Active allopurinol (ZYLOPRIM) 100 MG tablet Take 100 mg by mouth every morning 06/15/2021 Active atorvastatin (LIPITOR) 40 MG tablet 40 mg every night 06/15/2021 Active Cholecalciferol (Vitamin D3) 50 MCG (1999 UT) tablet Take 1 tablet by mouth every morning 04/22/2021 Active FeroSul 325 (65 Fe) MG tablet Take 1 tablet by mouth every morning 06/15/2021 Active hydrocortisone (CORTEF) 5 MG tablet Take 10 mg by mouth 1 (one) time each day in the morning 06/15/2021 Active metoprolol succinate XL (TOPROL XL) 25 MG 24 hr tablet TAKE ONE-HALF TABLET BY MOUTH EVERY MORNING 06/15/2021 Active mirtazapine (REMERON) 15 MG tablet 15 mg every night 04/14/2021 Active tamsulosin (FLOMAX) 0.4 MG 24 hr capsule TAKE ONE CAPSULE BY MOUTH AT BEDTIME 05/14/2021 Active Active Problems Problem Noted Date Diagnosed Date Atrial fibrillation 06/23/2021 Cerebrovascular accident 06/23/2021 Chronic kidney disease stage 3 06/23/2021 Congestive heart failure 06/23/2021 Essential hypertension 06/23/2021 Gout 06/23/2021 Hypercholesterolemia 06/23/2021 Type 2 diabetes mellitus 06/23/2021 Family History Medical History Relation Comments Cancer Father bone Heart disease Mother Relation Status Comments Father Mother Social History Tobacco Use Types Packs/Day Years Used Date Smoking Tobacco: Never Sex and Gender Information Value Date Recorded Sex Assigned at Not on file Legal Sex Male 4:36 PM EST Gender Identity Not on file Sexual Orientation Not on file Last Filed Vital Signs Vital Sign Reading Time Taken Comments Blood Pressure 110/70 10/11/2021 1:02 PM EDT Pulse 95 10/11/2021 1:02 PM EDT Temperature - - Respiratory Rate - - Oxygen Saturation 99% 10/11/2021 1:02 PM EDT Inhaled Oxygen Concentration - - Weight 115 kg (252 lb 12.8 oz) 10/11/2021 1:02 P M EDT Height 188 cm (6' 2 ) 03/27/2017 12:00 PM EST Body Mass Index 32.46 03/27/2017 12:00 PM EST Plan of Treatment Health Maintenance Due Date Last Done Comments Pneumococcal Vaccine: 65+ Ye ars (1 of 2 - PCV) 01/20/1951 Diabetes: Hemoglobin A1C 07/08/2019 Diabetes: Ophthalmology Exam 07/08/2019 Diabetes: Pedal Pulse Checked 07/08/2019 Diabetes: Sensory Foot Exam 07/08/2019 Diabetes: Visual Foot Exam 07/08/2019 Influenza Vaccine (#1) 2023 Hepatitis B Vaccine Aged Out No longe r eligible based on patient's age to complete this topic Insurance [facility] [place] [id number] [facility] [place] [phone] [address] [place] [address] Care Teams Firer Glost Kiln Relationship Specialty Start Date End Date Poonam Hernandez MD [address] [place], [place] PCP - General Internal Medicine 04/14/21
--- OUTSIDE RECORDS SUMMARY | 2024-05-17 12:52 | XMS_ITS | Data Portability ---
Author Organization [facility] [employer] [facility], Main Office Address [address] [place] [address] Care Team Providers Care Family Nurse Practitioner Name Role Phone [place] - 2ND FLOOR OTHER Assessment No assessment recorded. Plan of Treatment Reminders Order Date Submit Date Provider Last Modified By Organization Details Last Modified Time Details Appointments None record ed. Lab None record ed. Referral None record ed. Procedures None record ed. Surgeries None record ed. Imaging None record ed. Medication Orders None record ed. Patient TargetsNo targets recorded. Patient InstructionsNo instructions recorded. Reason for Referral None Reported. Problems Name Problem SNOMED Code Status Onset Date Resolution Date Notes Provider Name and Address Organization Details Recorded Time Gout 82928001 Active 2022 Mai Crespo NP [address], [place], [address], [facility] 3 14:12:09 Gastroesoph ageal reflux disease 874706547 Active 2022 Mai Crespo NP [address] , [address], [place], [address], [facility] 3 14:13:29 Vitamin deficiency 90002242 Active 2022 Mai Crespo NP [address], [address], [place], [address], [facility] 3 14:14:22 Closed fracture of greater trochanter of left femur 3293614446768 9101 Active 2022 Mai Crespo NP [address], [address], [place], [address], [facility] 3 14:16:18 Impaired cognition 249983419 Active 2022 Mai rCespo NP [address], [place], [address], [facility] 3 15:24:32 Myelolipoma of adrenal gland 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 Active 2022 Shamar Grijalva MD [address], [address], [place], [address], [facility] 3 08:54:24 Unsteady gait Active 2017 Shamar Grijalva MD [address], [address], [place], [address], [facility] 8 10:50:39 History of cerebrovasc ular accident 242182330 Active 2017 Shamar Grijalva MD [address] , [address], [place], [address], [facility] 8 10:50:47 Atrial fibrillatio n 85082274 Active 2017 Shamar Grijalva MD [address], [address], [place], [address], [facility] 8 10:50:53 Diabetes mellitus 32156911 Active 2017 Shamar Grijalva MD [address] [facility], [address], [place], [address], [facility] 8 10:50:58 Systolic heart failure 075616644 Active 2017 Shamar Grijalva MD [address] [facility], [address], [place], [address], [facility] 8 10:51:10 Essential hypertensio n 26186849 Active 2017 Shamar Grijalva MD [address] [facility], [address], [place], [address], [facility] 8 10:51:17 Hypopituita rism 58686929 Active 2017 Shamar Grijalva MD [address], [address], [place], [address], [facility] 8 10:51:44 Seizure disorder 184646678 Active 2017 Shamar Grijalva MD [address] [facility], [address], [place], [address], [facility] 8 10:53:04 Depressive disorder 94556729 Active 2017 Shamar Grijalva MD [address] [facility], [address], [place], [address], [facility] 8 10:53:11 Benign prostatic hyperplasia without outflow obstruction 545168990 Active 2017 Shamar Grijalva MD [address] [facility], [address], [place], [address], [facility] 8 11:00:59 Problem Notes None recorded. Medical Equipment None Reported. Allergies No known drug allergies Medications Not known to be on any medication Vitals Date Recorded Body weight Heart rate Respiratory rate Body temperature Oxygen saturation Oxygen saturation in Arterial blood by Pulse oximetry Systolic blood pressure Diastolic blood pressure Provider Name and Address Organization Details Last Updated DateTime 3 532401. 25 g 79 /min 18 /min 98.1 [degF] 95 % 95 % 123 mm[Hg] 80 mm[Hg] Mai Crespo NP [address] [facility], [address], [place], [address] , [facility] 3 13:51:28 Date Recorded Body weight Heart rate Respiratory rate Body temperature Oxygen saturation Oxygen saturation in Arterial blood by Pulse oximetry Systolic blood pressure Diastolic blood pressure Provider Name and Address Organization Details Last Updated DateTime 3 965457. 25 g 80 /min 18 /min 98.5 [degF] 97 % 97 % 140 mm[Hg] 84 mm[Hg] Mai Crespo NP [address] [facility], [address], [place], [address], [facility] 3 15:02:42 Date Recorded Body weight Heart rate Respiratory rate Body temperature Oxygen saturation Oxygen saturation in Arterial blood by Pulse oximetry Systolic blood pressure Diastolic blood pressure Provider Name and Address Organization Details Last Updated DateTime 3 000210. 25 g 85 /min 18 /min 98.6 [degF] 97 % 97 % 134 mm[Hg] 84 mm[Hg] Mai Crespo NP [address] [facility], [address], [place], [address], [facility] 3 14:59:33 Date Recorded Body weight Heart rate Respiratory rate Body temperature Oxygen saturation Oxygen saturation in Arterial blood by Pulse oximetry Systolic blood pressure Diastolic blood pressure Provider Name and Address Organization Details Last Updated DateTime 3 729296. 25 g 77 /min 18 /min 98.3 [degF] 96 % 96 % 138 mm[Hg] 72 mm[Hg] Mai Crespo NP [address] [facility], [address], [place], [address], [facility] 3 09:15:29 Date Recorded Systolic blood pressure Diastolic blood pressure Provider Name and Address Organization Details Last Updated DateTime 02/22/2023 138 mm[Hg] 79 mm[Hg] Shamar Grijalva MD [address] [facility], [address], [place], [address], [facility] 02/22/2023 08:37:55 Social History Question Answer Notes LastModified by Organizat ion Details LastModified Time Tobacco Smoking Status Never Smoker Shamar Grijalva MD [address] [facility], [address], [place], [address], [facility] 04/24/2017 11:08:45 Do You Have An Advance Directive? Yes Full Code Information not available 04/24/2017 What Is Your Level Of Alcohol Consumption? None Information not available 04/24/2017 How Much Tobacco Do You Chew? None Information not available 04/24/2017 What Is Your Code Status? Full Code Information not available 02/15/2023 Do You Have A Medical Power Of Marine Photographer? No Information not available 04/24/2017 What Was The Date Of Your Most Recent Tobacco Screening? 02/15/2023 Information not available 02/15/2023 Sex: Unknown Functional Status None recorded. Mental Status None recorded. Family History Nothing Reported Notes:Mother: heart problems Father bone ca Medical History No medical history recorded. Immunizations Vaccine Type Date Status Note Provider Nam e and Address Organization Details Recorded Time Influenza, adjuvanted, quadrivalent, PF 03/30/2023 completed Sharon camilo [place] - [facility] 06/15/2023 12:40:58 Past Encounters Encounter ID Performer Location Encounter Start Date Encounter Closed Date Diagnosis/Indication Diagnosis SNOMED-CT Code Diagnosis ICD10 Code Diagnosis Note [id number] Shamar Grijalva MD [address] [address] 04/24/2017 10:46:11 05/03/2017 13:22:45 Unsteady gait 015611054 R26.81 see HPIgait instabilit y and generalize d weakness admit for continued care. 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 History of cerebrovascular accident 889968557 Z86.73 see above Atrial fibrillation 4943 6004 I48.0 maintained on coumadinmo nitor and titrate dosemetopr olol for rate control Diabetes mellitus 913200 09 E11.9 metformin 500 mg qdmonitor blood gluocse Systolic h eart failure 902110901 I50.22 carrying dxnot currently on diureticmo nitor fluid status and respirator y function Essential hypertension 14951249 I10 norvasc discontinu ed in hospital maintained onmetoprol ol 12.5 mg qdmonitor bp and labs Hypopituitarism 03013851 E23.0 hx of added to PMHcortef 10 mg qam 5 mg qpm Seizure disorder 6324209 02 G40.89 keppra 750 mg bidmonitor for activity Depressive disorder 3548 9007 F32.89 prozac 20 mg qdmonitor mood Benign pro static hyperplasia without outflow obstruction 810711792 N40.0 flomax 0.4 [place] [id number] Gladis Box [facility] [address] [address] 04/26/2017 11:47:39 05/03/2017 13:25:43 Low back pain 274685728 M54.5 Secondary to mechanical fallCurren tly on oxycodone 5 mg Q6h prn-will increase to 5-10 mg Q4h prn and monitorPat ient agrees to work with therapy if pain can be better controlled [id number] Shamar Grijalva MD [address] [address] 05/01/2017 10:19:25 05/03/2017 13:36:42 Unsteady gait 457102011 R26.81 improved with PT OT Atrial fibrillation 4943 6004 I48.0 maintained on coumadinmo nitor and titrate doserate controlled on metorprolo lremains in sinus rhythm Diabetes mellitus 798261 09 E11.9 metformin 500 mg qdcontinue Essential hypertension 94474910 I10 norvasc discontinu ed in hospital maintained onmetoprol ol 12.5 mg qdmonitor bp and labs Hypopituitarism 87617881 E23.0 hx of added to PMHcortef 10 mg qam 5 mg qpm Seizure disorder 5476055 02 G40.89 keppra 750 mg bidcontinu e Depressive disorder 3548 9007 F32.89 prozac 20 mg qdcontinue Benign pro static hyperplasia without outflow obstruction 616138027 N40.0 flomax 0.4 mg qdcontinue [id number] Mai Crespo NP [facility] [place] [address] [place] [address] 02/15/2023 13:50:23 02/21/2023 13:17:35 History of cerebrovascular accident 136243423 Z86.73 hx of cva with right sided weaknessas pirin 81 mg po dailyon ac see belownow non weight bearing to left sidemonito r Atrial fibrillation 4943 6004 I48.0 maintained on coumadinwa s on 2.5mg alt with 5 mg every other daymonitor and titrate dosemetopr olol for rate control Diabetes mellitus 861570 09 E11.9 metformin 500 mg qdmonitor blood glucose Systolic h eart failure 332634694 I50.22 carrying dxnot currently on diureticmo nitor fluid status and respirator y function Essential hypertension 41692158 I10 amlodipine 2.5 mg po dailymetop rolol succ 12.5 mg qdmonitor bp and labs Hypopituitarism 29608459 E23.0 hx of added to PMHcortef 10 mg qam Seizure disorder 6455388 02 G40.89 keppra 750 mg bidmonitor for activity Depressive disorder 3548 9007 F32.89 prozac 20 mg qdmirtazap ine 15 mg po dailymonit or mood Benign pro static hyperplasia without outflow obstruction 080838854 N40.0 flomax 0.4 mg qdmyrbetri q 25 mg po dailymonit or for sx Hyperlipidemia 86810396 E78.5 atorvastat in 40 mg po bedtimemon itor Gout 36826423 M10.9 allopurino l 100 mg po dailymonit or Gastroesop hageal reflux disease 316273172 K21.9 famotidine 20 mg po dailymonit or Vitamin deficiency 75317 002 E56.9 magnesium oxide 250mg tidferrous sulfate 325 mg po dailymonit or Closed fra cture of greater trochanter of left femur 5542109865 2157948 S72.115A non surgical per orthonon weight bearing to left sideokay to use kimberly lift if needed with careful transfer prnair loss bariatric mattress due to non weight bearing status of left and right weak cva11/1add lidocaine patch to left hip topically dailywill need fu with orthooxyco done 5 mg po q 6 hours prn paintyl prnPT OTon ac coumadin Impaired cognition 50913 6002 R41.89 scores 13/30 for moderate cognitive impairment invoke today, with son as decision makermonit or [id number] Shamar Grijalva MD [facility] [address] [address] 02/22/2023 08:30:44 02/24/2023 15:15:57 Closed fracture of greater trochanter of left femur 2933695568 1469289 S72.115A see HPIleft greater trochanter ic femur fx. Eval by ortho with no surgical interventi on indicated at that time to remains NWB till cleared by orthoPT OT eval and treatmonit or fall risk and pain controlupd ate ortho with concerns History of cerebrovascular accident 598414848 Z86.73 baseline right sided weakness post prior cvaPT TO Eval and treat Atrial fibrillation 9143 6004 I48.0 coumadin monitor and titrate following INRmetopro lol 12.5 mg qdmonitor for rate control Diabetes mellitus 028185 09 E11.9 metformin 500 mg qdmonitor blood glucose and need to adjust Systolic h eart failure 908332872 I50.22 carrying dxcurrentl y not on diureticmo nitor fluid status and respirator y function Essential hypertension 15131729 I10 norvasc 2.5 mg po qdmetoprol ol 12.5 mg qdmonitor bp and labs Seizure disorder 6286411 02 G40.89 keppra 750 mg bidmonitor for activity Benign pro static hyperplasia without outflow obstruction 641334992 N40.0 flomax 0.4 mg qdmyrbetri q 25 mg po qdmonitor for sx relief Hyperlipidemia 52994488 E78.2 lipitor 40 mg qdcontinue d Gastroesop hageal reflux disease 113853445 K21.9 famotidine 20 mg po qdmonitor for sx relief Impaired cognition 15550 6002 R41.89 baseline cognitive impairment unable to make own decisionsi nvoke HCPcontinu e supportive caremonito r need for increased services in community Myelolipom a of adrenal gland 656739174 D35.01 see HPIInciden filippo finding of probable myelolipom a right adrenal lesionrepe at CT in 3-6 monthsmoni tor need for biospycoul d refer to IR [id number] Mai Crespo NP [facility] [address] [address] 03/02/2023 14:58:01 03/07/2023 07:54:51 Closed fracture of greater trochanter of left femur 3983488324 2611530 S72.115A non surgical per orthonon weight bearing to left sideokay to use kimberly lift if needed with careful transfer prnair loss bariatric mattress due to non weight bearing status of left and right weak cvalidocai ne patch to left hip topically dailywill need fu with ortho apptoxycod one 5 mg po q 6 hours prn paintyl prnPT OTon ac coumadin History of cerebrovascular accident 359474940 Z86.73 hx of cva with right sided weaknessas pirin 81 mg po dailyon ac see [place] non weight bearing to left sidemonito r Atrial fibrillation 4943 6004 I48.0 maintained on coumadinmo nitor inr/pt on Mondays and prncont on regular therapy 2.5mg alt with 5 mg every other daymonitor and titrate dosemetopr olol for rate control Diabetes mellitus 515428 09 E11.9 metformin 500 mg qdmonitor blood glucose Systolic h eart failure 256048021 I50.22 carrying dxnot currently on diureticmo nitor fluid status and respirator y function Essential hypertension 39046818 I10 amlodipine 2.5 mg po dailymetop rolol succ 12.5 mg qdmonitor bp and labs Hypopituitarism 72410810 E23.0 hx of added to PMHcortef 10 mg qam Seizure disorder 6253917 02 G40.89 keppra 750 mg bidmonitor for activity Depressive disorder 3548 9007 F32.89 prozac 20 mg qdmirtazap ine 15 mg po dailymonit or mood Benign pro static hyperplasia without outflow obstruction 714932146 N40.0 flomax 0.4 mg qdmyrbetri q 25 mg po dailyconsi arik dc myrbetriq if retention occursmoni tor for sx Impaired cognition 83675 6002 R41.89 scores 13/30 for moderate cognitive impairment invoked son as decision makermonit or [id number] Mai Crespo NP [facility] [address] [address] 03/10/2023 14:58:06 03/15/2023 09:02:40 Closed fracture of greater trochanter of left femur 5453725556 5411660 S72.115A non surgical per orthonon weight bearing to left sideokay to use kimberly lift if needed with careful transfer prnair loss bariatric mattress due to non weight bearing status of left and right weak cvalidocai ne patch to left hip topically dailywill need fu with ortho apptoxycod one 5 mg po q 6 hours prn paintyl prnPT OTon ac coumadin History of cerebrovascular accident 915207546 Z86.73 hx of cva with right sided weaknessas pirin 81 mg po dailyon ac see below with coumadinno w non weight bearing to left sidemonito r Atrial fibrillation 4943 6004 I48.0 maintained on coumadinmo nitor inr/pt on Mondays and prnlevel 1.88 on 03/10 add 5mg to dose tonight and continue reg dosing belowcont on regular therapy 2.5mg alt with 5 mg every other daymonitor and titrate dosemetopr olol for rate control Diabetes mellitus 662826 09 E11.9 metformin 500 mg qdmonitor blood glucose Systolic h eart failure 434526737 I50.22 carrying dxnot currently on diureticmo nitor fluid status and respirator y function Essential hypertension 74225857 I10 amlodipine 2.5 mg po dailymetop rolol succ 12.5 mg qdmonitor bp and labs Seizure disorder 6069828 02 G40.89 keppra 750 mg bidmonitor for activity Depressive disorder 3548 9007 F32.89 prozac 20 mg qdmirtazap ine 15 mg po dailymonit or mood Benign pro static hyperplasia without outflow obstruction 615709011 N40.0 flomax 0.4 mg qdmyrbetri q 25 mg po dailyconsi arik dc myrbetriq if retention occursmoni tor for sx Impaired cognition 84321 6002 R41.89 scores 13/30 for moderate cognitive impairment invoked son as decision makermonit or [id number] Mai Crespo NP [facility] [address] [address] 03/15/2023 09:03:01 03/20/2023 10:39:58 Closed fracture of greater trochanter of left femur 2486038910 5519229 S72.115A non surgical per orthonon weight bearing to left sideokay to use kimberly lift if needed with careful transfer prnair loss bariatric mattress due to non weight bearing status of left and right weak cvalidocai ne patch to left hip topically daily*will need fu with ortho apptoxycod one 5 mg po q 6 hours prn paintyl prnPT OT as needed outptnote: on ac coumadin at baselinefu with pcp outpt Diabetes mellitus 266394 09 E11.9 metformin 500 mg qdmonitor blood glucose History of cerebrovascular accident 384918318 Z86.73 hx of cva with right sided weaknessas pirin 81 mg po dailyon ac see below with coumadinno n weight bearing to left side, however pt using left leg at timesmonit or Atrial fibrillation 4943 6000 I48.0 maintained on coumadinco nt on regular therapy 2.5mg alt with 5 mg every other daymonitor and titrate dose per outpt pcpcont metoprolol for rate controllev els here above Systolic h eart failure 713241407 I50.22 carrying dxnot currently on diureticmo nitor fluid status and respirator y function outpt Essential hypertension 01815360 I10 stable here on:amlodip ine 2.5 mg po dailymetop rolol succ 12.5 mg qdmonitor outpt with pcp Seizure disorder 6715236 02 G40.89 keppra 750 mg bidmonitor for activity outpt Depressive disorder 3548 9007 F32.89 prozac 20 mg qdmirtazap ine 15 mg po dailymonit or mood outpt with pcppsych outpt prn Benign pro static hyperplasia without outflow obstruction 577502841 N40.0 flomax 0.4 mg qdmyrbetri q 25 mg po dailyconsi arik dc myrbetriq if retention occursmoni tor for sx outpt with pcp Impaired cognition 67959 6002 R41.89 scores 13/30 for moderate cognitive impairment on admissioni nvoked son as decision makermonit or outpt with family and [facility] Health Concerns Section Related Observation LastModified by Organization Detai ls LastModified Time None Recorded Concern Status LastModified by Organization Details LastModified Time None Recorded Advance Directives Directive Y: Full code Payers Encounter Date Sequence Insurance Name Policy Number Policy Sims Covered Member ID Sims Member ID Guarantor Name 02/15/2023 1 [facility] - DOS ON OR AFTER 2022 - MEDICARE [place]AGE [place]MEDICARE [place]PLACEMENT/ADV ANTAGE - PPO) Yousif Mcintosh [id number] Suseunice Velazquezgos 02/15/2023 2 [place] [facility] Suseunice Nailss [id number] Suseunice Mcintosh 02/22/2023 1 [facility] - DOS ON OR AFTER 2022 - [place]V ANTAGE - PPO) Susano Mcintosh [id number] Susano Mcintosh 02/22/2023 2 [place] [facility] Suseunice Mcintosh [id number] Suseunice Mcintosh 03/02/2023 1 [facility] - DOS ON OR AFTER 2022 - [place]V ANTAGE - PPO) Suseunice Velazquezgos [id number] Suseunice Mcintosh 03/02/2023 2 [place] [facility] Yousif Nailss [id number] Yousif Velazquezgos 03/10/2023 1 [facility] - DOS ON OR AFTER 2022 - [place]/ADV ANTAGE - PPO) Yousif Nailss [id number] Yousif Velazquezgos 03/10/2023 2 [place] [facility] Yousif Velazquezgos [id number] Yousif Velazquezgos 03/15/2023 1 [facility] - DOS ON OR AFTER 2022 - [place]/ADV ANTAGE - PPO) Yousif Velazquezgos [id number] Yousif Mcintosh 03/15/2023 2 [place] [facility] Yousif Nailss [id number] Yousif Mcintosh Notes Date Note Type Note Provider Name and Address Organization Details Recorded Time 02/16/20 23 text/htm l 72 yo male seen for an initial intake with hx of left MCA stroke with right hemiparesis wheelchair bound on coumadin for afib stood up to urinate and lost balance and wheelchair moved with fall hitting his left hip and head resulting in a non surgical greater trochanter left femur fracture. His hospital workup consisted of being seen by ortho and felt non surgical with non weight bearing status, rest, PT/OT, and fu with ortho. Labs showed a inr of 4.4 which was monitored and adjusted dosing. A CT head, spine, pelvis, abd, resulted showing undisplaced fx involving the greater trochanter of the left hip. normal appearing kidneys with 6 x7 cm gradually increasing partially fatty right adrenal lesion probably representing a myelolipoma. slightly enlarge prostate gland diverticulosis. gallstones. stable left frontal lobe encephalomalacia and mild dilation of left lateral ventricle. On exam, he is mostly [place] speaking and manager quantitative used. He states the oxycodone helps with the pain to the femur but could use something else. Will order lidocaine patch. His feet are against the bottom of the bed and boosted up today. Due to his height, cva weakness on the right, and nonweight bearing on the left will benefit from air mattress bariatric. Snyder: high riskHe scores a 13/30 on his slums exam today. Will invokeMOLST: awaiting son to sign document Mai Crespo NP [address] [facility], [address], [place], [address], [facility] 02/17/2023 16:46:18 02/23/20 23 text/htm l Patient is a 78 yo male admit from hospital presenting after fall out of wheelchair. Patient on coumadin at baseline with hx of CVA. Imaging positive for left greater trochanteric femur fx. Eval by ortho with no surgical intervention indicated at that time to remains NWB till cleared by ortho. Incidental finding of probable myelolipoma right adrenal lesion [place]an speaking manager quantitative present PMH significant forgerdimpaired cognitionbphdepressionseizure dxhypopituitarismchfdma fibhx CVAhtngait instability admit to facility for continued care and therapy Shamar Grijalva MD [address] [facility], [address], [place], [address], [facility] 02/22/2023 09:05:01 03/02/20 23 text/htm l 72 yo male seen for acute rounding visit at rehab sp mechanical fall with greater trochanter left femur fracture. PMH: CKD, Iron deficiency anemia, psoriasis, stroke, seizures, dyslipidemia, BPH, hypovitamisois D, Gout, HTN, DM He has been working with rehab and doing well. His coumadin was within normal parameters and regular dosing continued. next recheck on Monday. He is on myrbetriq and tamsulosin and it seems he has retention, but likely myrbetriq contributing to retention. No retention here and this was home regimen that is working for him. Will continue for now. On exam, he is mostly [place] speaking and manager quantitative used. He is transferring to toilet with help today. He reports the oxycodone and lidocaine patch are helping with the pain. MOLST: awaiting son to sign document Mai Crespo NP [address] [facility], [address], [place], [address], [facility] 03/02/2023 15:15:55 03/10/20 23 text/htm l 72 yo male seen for acute rounding visit at rehab sp mechanical fall with greater trochanter left femur fracture. PMH: CKD, Iron deficiency anemia, psoriasis, stroke, seizures, dyslipidemia, BPH, hypovitamisois D, Gout, HTN, DM Yousif continues to do well working with rehab. He is followed for his coumadin levels except inr 1.88, next lab on Monday. Will add 5 mg coumadin to tonights dose. Labs reviewed fro 03/10 and wnl. On exam, he is mostly [place] speaking and manager quantitative used. He denies any concerns today. He is motoring around in his wheelchair today. Pain controlled. MOLST: awaiting son to sign document Mai Crespo, XIAO [address] [facility], [address], [place], [address], [employer] 03/10/2023 15:06:40 03/15/20 23 text/htm l 72 yo male seen seen for a discharge visit today. He initally presented to [facility] on 02/14 with hx of left MCA stroke with right hemiparesis wheelchair bound on coumadin for afib after standing up to urinate and lost balance with fall hitting his left hip and head resulting in a non surgical greater trochanter left femur fracture.His hospital workup consisted of being seen by ortho and felt non surgical with non weight bearing status, rest, PT/OT, and fu with ortho. Labs showed a inr of 4.4 which was monitored and adjusted dosing. A CT head, spine, pelvis, abd, resulted showing undisplaced fx involving the greater trochanter of the left hip. normal appearing kidneys with 6 x7 cm gradually increasing partially fatty right adrenal lesion probably representing a myelolipoma in which he will need to fu outpt for. Slightly enlarged prostate gland diverticulosis. gallstones. stable left frontal lobe encephalomalacia and mild dilation of left lateral ventricle. At [facility] Yousif continues to do well working with rehab here and has been able to transfer from wheelchair to bed: regardless of therapy and staff encouragement of non weight bearing status. He missed his ortho follow up appointment and will need to follow up outpt for plan with trochanter femur fracture. He has been working with rehab and doing well. His coumadin was within normal parameters and regular dosing continued. He will follow his home dosing as prior to admission here. While here he was invoked with a SLUMS score of 13/30. His son is the decision maker. He has not required oxycodone for pain since 03/02 and will not send home with any. He may continue with the tylenol and over the counter lidocaine 4% patch to his femur for pain control. On exam, he is mostly Bel[place]an speaking and manager quantitative used. He denies any concerns today and states his pain is controlled. He is excited to go home and FOOD SERVICE HELPER is supposed to pick him up. MOLST: awaiting son to sign document- still not addressed Mai Crespo, XIAO [address] [facility], [address], [place], [address], [facility] - [email or web address] 03/15/2023 09:47:09
--- NOTE | 2024-05-17 13:04 | A.OFFVIS_ITS ---
Intake Visit Reasons: Cysto(Grposs Hematuria/Retention) Intake Note: Patient is present for Cystoscopy Urology Medication:FINASTERIDE,TAMSULOSIN,ALLOPOURINOL Antibiotic Allergy:NONE Blood Thinner:ASPIRIN,WARFARIN TODAY'S PVR:60ML'S Lot:[id number] Exp:02/18/27 Allergies No Known Allergies Allergy (Verified 05/10/24 10:17) HPI Comments Details: Yousif is a [place]ore[place]-speaking male. He is a patient of Dr. Kent. He is seen for the following urologic conditions - elevated PSA - lower urinary tract symptoms - hematuria Here for office cystoscopy Large protuberant prostate Continue combination therapy Recommend GreenLight laser prostatectomy with prostate biopsy Stroke 2011 with seizures and diabetes Elevated PSA PSA 19.4 Plan biopsy at time of outlet procedure Lower urinary tract symptoms Progressive Prior history of retention with Gamez catheter PVR was 400 cc in emergency room Recent CT showing significantly enlarged prostate with bladder protuberant Current medications include finasteride and tamsulosin Background anticoagulation with diabetes - on Jardiance which is disrupting urination PFSH Medical History (Reviewed 04/03/24 @ 16:49 by JOCELYN GonzalezMARY [facility]) Renal insufficiency CKD (chronic kidney disease) Physical exam Iron deficiency anemia Psoriasis Stroke Seizures Dyslipidemia BPH (benign prostatic hyperplasia) Hypovitaminosis D Gout Abnormal laboratory test Hypertension Diabetes Surgical History History of open reduction and internal fixation (ORIF) procedure History of kidney stones Family History Mother Heart problem Father Bone cancer Social History Household Members: None Housing: Apartment Do you presently have visiting nurse or other home services: Yes Unable to assess alcohol history related to: Unknown Alcohol intake: never Patient Tobacco Use Status: Never used Tobacco e-Cigarette/Vaping Use: Never Used Second Hand Smoke Exposure: No Advance Directives Date on File: 10/17/22 service: No Current occupational status: disabled Cognitive needs: Yes (wheelchair) Hearing needs: No Vision needs: No Review of Systems Const Denies chills and Denies fever(s) Card Reports no additional complaints and Denies syncope Resp Denies cough GI Denies abdominal pain and Denies heartburn Reports as per HPI and Denies change in libido Neuro Denies syncope Psych Denies change in libido Endo Denies change in libido Physical Exam Const General: cooperative, healthy appearing, comfortable and no acute distress Orientation/consciousness: patient oriented x3 HEENT Face and sinus: Yes normal facial exam Mouth: moist mucous membranes Neck Neck: Yes normal visual inspection, Yes full ROM and Yes trachea midline Chest Chest palpation & inspection: normal inspection of the chest Resp Effort & Inspection: normal respiratory effort, able to speak in complete sentences and no respiratory distress GI Inspection: Yes normal to inspection Back/Spine/Pelvis Cervical Spine: normal cervical lordosis Thoracic/Lumbar Spine: thoracic and lumbar spine normal to inspection Skin General skin exam: no rashes or lesions noted Neuro General: patient oriented x3, gait normal, tone normal and moves all extremities Extrem General: Yes normal to inspection and Yes capillary refill normal Office Procedures Cystoscopy Consent Discussed risk and benefit or proposed procedure with the patient. Information consent for procedure given to the patient. Discussed technical aspects, risks, benefits and alternatives in full. Addressed all of the patient's questions and concerns regarding the procedure. The patient demonstrated knowledge and understanding. They wish to proceed with this procedure. Preparation The patient was prepped in the usual manner. A tool room lathe operator was present and in the room. Genitalia was prepped with betadine solution in a sterile manner. Lidocaine Jelly 2% was placed into the urethra and 16Fr flexible Olympus cystoscope was inserted into the meatus after adequate lubrication. Procedure Cystoscopy performed using a disposable Urovue digital 16 Syriac cystoscope. Meatus uncircumcised Urethra anterior and posterior urethra normal Prostatic Urethra prominent median lobe Bladder examination with retroflexion of cystoscope Bladder Orifices normal shape and position Bladder Capacity large Trabeculations grade 2/3 Cellule Formation yes Diverticulum Formation small Mucosal Erythema - Bladder Tumor - [id number] DISPOSABLE SCOPE URO-G FLEXIBLE SCOPE Procedure code (CPT) selection complete Post Void Residual Post Residual Void Post Void Residual (PVR): 60 55424-Jpqj Void Residual by ultrasound Office Meds lidocaine HCl 2 % mucosal jelly in applicator Performing Provider: Ciro Mariee MD [facility] Administered by: Jane Luther RN on 05/17/24 13:39 Dose Route Admin Location Dispensed Lot Number Expiration Date [facility] Forge Tender 10 mL intra-urethral 10 mL nitrofurantoin monohydrate/macrocrystals 100 mg capsule Performing Provider: Ciro Mariee MD Performing Location: [facility] Administered by: Jane Luther RN on 05/17/24 13:39 Dose Route Admin Location Dispensed Lot Number Expiration Date [facility] Forge Tender 100 mg PO 1 cap Assessment & Plan Assessment & Plan (1) BPH (benign prostatic hyperplasia): Code(s): N40.0 - Benign prostatic hyperplasia without lower urinary tract symptoms Category: Medical (2) Elevated PSA: Code(s): R97.20 - Elevated prostate specific antigen [PSA] Category: Medical (3) Incomplete bladder emptying: Code(s): R33.9 - Retention of urine, unspecified Category: Medical Plan We discussed the nature of the decision and reasonable options for performing a prostate intervention. Interventions include TURP, GreenLight laser enucleation of the prostate, GreenLight laser ablation of the prostate, transurethral incision of the prostate, and I-Tend prostate procedure. Options such as medical therapy were discussed. The relative uncertainties and benefits related to each alternate procedure were adequately discussed. General surgical risks including, but not limited to, pain, bleeding, infection, myocardial infarction, pulmonary embolus, deep vein thrombosis and cerebrovascular accident which may result in further hospitalization were discussed. Full disclosure of the procedure as well as all major risks, benefits and complications were discussed including but not limited to damage to the urethra or bladder neck, recurrent BPH, retrograde ejaculation, bladder infection, urge, de vicki frequency, incomplete emptying, dysuria, remote chance of erectile dysfunction, epididymitis, and meatal stenosis. The success rate of the procedure was discussed. Success of the procedure in the short-term does not necessarily guarantee that long-term success will be maintained. Suitable follow up will need to be maintained. The patient showed understanding of discussion. An opportunity was provided for questions to be answered and wishes to proceed with the following procedure. - GreenLight laser prostatectomy plus prostate biops G Code G2211 Has been applied in accordance with CMS guidelines ( Medicare and Medicaid programs; 2023 Payment Policies ) to convey the inherent complexity in ongoing patient care within the urology clinic. This deliberate utilization aligns with the visits complexity associated with medical care services serving as a focal point for necessary healthcare, addressing the patient's singular serious or complex condition. This judicious use ensure was appropriate reimbursement, especially in the context of managing such conditions within our specialized, longitudinal urologic practice. This patient has a complex and chronic urologic condition that requires longitudinal follow-up. [facility], Medicare and Medicaid programs; 2023 Payment Policies Fed. Reg 88 (64): 70791-04970 (Nov.212022) Orders: Orders AMB Urinalysis Automated Today Z13.9 - Encounter for screening, unspecified AMB Cystoscopy Today N42.89 - Other specified disorders of prostate, R32 - Unspecified urinary incontinence, R33.9 - Retention of urine, unspecified Patient Instructions: This note is constructed using voice recognition software. While every effort has been made to ensure accuracy dining car hop errors may have been included. Imaging studies, laboratory and physical exam results were discussed and reviewed in detail. No major barriers to patient understanding were identified. An opportunity to ask questions regarding the treatment plan was provided. All questions were answered. The patient expressed understanding and agreement with the above treatment plan. The patient is aware they should contact our office by phone for worsening of their current condition or the appearance of new urologic symptoms. Compliance is encouraged with any medications and followup testing that is ordered. It is a privilege to participate in the urologic care of your patient. If you have any questions or concerns regarding treatment for the above conditions, or other urologic issues, please do not hesitate to contact me. The office telephone contact is [phone]. Sincerely, Dr Ciro Mariee MD, GAET[facility] - Urology Compassionate Specialist Care for the Genitourinary System Coding Level of Care Code Est Pt Level 4 (77326) Complex EM visit Add On G2211 Diagnoses BPH (benign prostatic hyperplasia) N40.0 Elevated PSA R97.20 Incomplete bladder emptying R33.9 CPT Codes Cystoscopy - CPT: 44765-Sqpyogjahz ([id number]) Post Residual Void - PVR CPT Code: 81609-Zuyy Void Residual by ultrasound ([id number])
== END 2024-05-17 14:21 | disposition home or self-care (01) ==
PROVIDERS: PCP Internal Medicine; Visit Provider Urology
DX: N40.0 Benign prostatic hyperplasia without lower urinary tract symptoms (principal); R97.20 Elevated prostate specific antigen [PSA]; R33.9 Retention of urine, unspecified; N42.89 Other specified disorders of prostate; R32 Unspecified urinary incontinence
CPT/HCPCS: 52000; 99214; G2211

== ENCOUNTER → 2024-05-17 12:33 | Outpatient (BNVA) | payer OTHER, SELFPAY | PROVIDERS: PCP Internal Medicine; Visit Provider Urology | DX: N40.1 Benign prostatic hyperplasia with lower urinary tract symptoms (principal); R97.20 Elevated prostate specific antigen [PSA]; R33.8 Other retention of urine; N42.89 Other specified disorders of prostate; R32 Unspecified urinary incontinence | CPT/HCPCS: 51798; 52000; 99212 ==

== ENCOUNTER → 2024-05-20 14:39 | Outpatient (BNVA) | payer OTHER, SELFPAY | PROVIDERS: PCP Internal Medicine; Visit Provider Internal Medicine ==

== ENCOUNTER → 2024-05-27 14:58 | Outpatient (BNVA) | payer OTHER, SELFPAY | PROVIDERS: PCP Internal Medicine; Visit Provider Internal Medicine ==

== ENCOUNTER → 2024-06-05 15:51 | Outpatient (BNVA) | payer OTHER, SELFPAY | PROVIDERS: PCP Internal Medicine; Visit Provider Internal Medicine ==

== ENCOUNTER 2024-06-10 13:49 | Outpatient (AMB) | payer OTHER, SELFPAY ==
--- NOTE | 2024-06-10 13:53 | MHC.PC.OV ---
Vital Signs 06/10/24 13:59 Height 6 ft 2 in Weight 224 lb 3.362 oz BMI 28.8 BP 108/70 Blood Pressure Location Lt brachial Position Sitting Intake Visit Reasons: dm Intake Note: Patient here for a follow up DM Photovoltaic Panel Installer Required: Yes Photovoltaic Panel Installer Language: Automation/Controls Manager Name: Poonam Mejia MD Information Interpreted: non-clinical & clinical Accompanied by: SALES REPRESENTATIVE METALS Allergies No Known Allergies Allergy (Verified 06/10/24 14:42) Medication List - Last Reconciled 06/10/24 by Poonam Mejia MD [adult diapers pull-ups As directed] allopurinol 100 mg PO DAILY aspirin 81 mg PO DAILY 3 months atorvastatin 40 mg PO BEDTIME 90 days [bed side table As directed] blood sugar diagnostic (J.G. inkuch Ultra Test strips) test once per day blood-glucose meter (Schedulicity Ultra2 Meter) test once per day commode (bedside commode) As directed empagliflozin (Jardiance) 10 mg PO DAILY 90 days famotidine 20 mg PO DAILY PRN 30 days ferrous sulfate 325 mg PO DAILY 60 days finasteride 5 mg PO DAILY 90 days fluoxetine 40 mg (2 x 20 mg) PO DAILY [gloves As directed] hydrocortisone (Cortef) 10 mg (2 x 5 mg) PO DAILY [incontinent wipes As directed] lancets (Startlocal DelDirectRM Safety Lancet) test once per day [Legs rests for Dynaride 19 TWC non elevating As directed] levetiracetam 750 mg PO BID 3 months magnesium oxide 400 mg PO DAILY 90 days metformin 500 mg PO DAILY 90 days metoprolol succinate ER 12.5 mg (1/2 x 25 mg) PO DAILY mirtazapine 15 mg PO BEDTIME 3 months nebulizers (VixOne Nebulizer-Adult Mask) As directed- tube like [power wheelchair As directed] tamsulosin 0.4 mg PO DAILY 3 months underpads (Bed Underpads) As directed warfarin 5 mg See Protocol PO MOFR warfarin 2.5 mg See Protocol PO SUTUWETHSA [wipes As directed] Tobacco use date assessed: 06/10/24 Fall risk assessment: No Falls in past year Last assessed Fall Risk: 06/10/24 Dental Screening Dental Screen Date: 06/10/24 Did you have a dental visit in the last 12 months?: No Did you have a dental problem in the last 6 months where you did not have access to dental care?: No Was dental information given to patient?: Patient has dentist HPI HPI Comments History of Present Illness Details This is a 79-year-old male with diabetes mellitus type 2, 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 He has elevated PSA with a prostate mass follow by Urology in which prostate biopsy is pending. A1c within goal being 6.9% today. Has a wheelchair due to his stroke. On chronic anticoagulation for his atrial fibrillation. Blood pressure stable. Mild major depression well control and fluoxetine will be decreased. Has not had a seizure in over 3 months and this is follow by Neurology. Last echocardiogram shows normal ejection fraction with severe asymmetric septal hypertrophy. He denies any chest pain, shortness of breath or leg swelling. Has been referred multiple times to Cardiology but he no shows to appointments. [facility] Medical History (Updated 06/10/24 @ 19:33 by Poonam Mejia MD) Renal insufficiency CKD (chronic kidney disease) Physical exam Iron deficiency anemia Psoriasis Stroke Seizures Dyslipidemia BPH (benign prostatic hyperplasia) Hypovitaminosis D Gout Abnormal laboratory test Hypertension Diabetes Surgical History History of open reduction and internal fixation (ORIF) procedure History of kidney stones Family History Mother Heart problem Father Bone cancer Social History Household Members: None Housing: Apartment Do you presently have visiting nurse or other home services: Yes Unable to assess alcohol history related to: Unknown Alcohol intake: never Patient Tobacco Use Status: Never used Tobacco e-Cigarette/Vaping Use: Never Used Second Hand Smoke Exposure: No Advance Directives Date on File: 10/17/22 service: No Current occupational status: disabled Cognitive needs: Yes (wheelchair) Hearing needs: No Vision needs: No Questionnaire PHQ-9 Over the last 2 weeks, how often have you been bothered by any of the following problems? 1. Little interest or pleasure in doing things: not at all 2. Feeling down, depressed, or hopeless: not at all 3. Trouble falling or staying asleep, or sleeping too much: not at all 4. Feeling tired or having little energy: not at all 5. Poor appetite or overeating: not at all 6. Feeling bad about yourself - or that you are a failure or have let yourself or your family down: not at all 7. Trouble concentrating on things, such as reading the newspaper or watching television: not at all 8. Moving or speaking so slowly that other people could have noticed. Or the opposite - being so fidgety or restless that you have been moving around a lot more than usual: not at all 9. Thoughts that you would be better off or of hurting yourself in some way: not at all Total score: 0 Depression Screening Interpretation: Negative Depression Screening Done: Yes 66376 - PHQ-9 Billing: Yes Source: Developed by Drs. Lalito Robbins, Laura Cedeno, Quang Alexander and colleagues, with an educational tanya from [employer]. Thrive Questionnaire Date Thrive assessed: 06/10/24 I am a: Patient What is your living situation today?: I have a steady place to live Within the past 12 months, did the food you bought not last and you didn't have the money to get more?: I choose not to answer this question Within the past 12 months, did you worry whether your food would run out before you got money to buy more?: I choose not to answer this question Do you have trouble paying for medicines?: No Do you have trouble getting transportation to medical appointments?: No Do you have trouble paying your heating and electricity bill?: No Do you have trouble taking care of your child, family member or friend?: No Do you have trouble with day-to-day activities such as bathing, preparing meals, shopping, managing finances, etc.?: Yes Are you currently unemployed and looking for a job?: I choose not to answer this question Are you interested in more education?: I choose not to answer this question Please select the resources that you would like help with: None Currently or been in a relationship where the following occur: I choose not to answer THRIVE Score: 0 AUDIT C Alcohol Use Questionnaire (AUDIT-C) 1. How often do you have a drink containing alcohol?: Never Total Score: 0 Score Reviewed/Action Taken: No KERRY-7 AMB Questionnaire KERRY-7 Date KERRY - 7 assessed: 06/10/24 Feeling nervous, anxious, or on edge: 0 = Not at all Not being able to stop or control worryin = Not at all Worrying too much about different things: 0 = Not at all Trouble relaxin = Not at all Being so restless that it is hard to sit still: 0 = Not at all Becoming easily annoyed or irritable: 0 = Not at all Feeling afraid as if something awful might happen: 0 = Not at all Total KERRY-7 score (0-4 normal; 5-9 mild; 10-14 moderate; 15-21 severe): 0 Source: Developed by Drs. Lalito Robbins, Laura Cedeno, Quang Alexander and colleagues, with an educational tanya from [employer]. KERRY-7 Assessment Billing KERRY-7 Assessment Tool: KERRY-7 Assessment 37525 Review of Systems Const All systems reviewed & are unremarkable except as noted in HPI and below Reports weakness Card Denies chest pain at rest, Denies chest pain with activity, Denies edema, Denies irregular heart rhythm, Denies claudication, Denies dyspnea, Denies dyspnea on exertion, Denies orthopnea, Denies paroxysmal nocturnal dyspnea and Denies slow heart rate Resp Denies cough, Denies dyspnea and Denies dyspnea on exertion Neuro Reports weakness Physical exam (Primary Care) Vital Signs: Last Vital Signs BP 108/70 06/10/24 13:59 BMI result Body Mass Index 28.8 Tobacco/Smoking Status: Tobacco use Status Tobacco use date assessed 06/10/24 06/10/24 14:05 Patient Tobacco Use Status Never used Tobacco 06/10/24 13:57 e-Cigarette/Vaping Use Never Used 06/10/24 13:57 PHQ-9: PHQ-9 Score PHQ-9: Total score 0 06/10/24 14:37 Depression Screening Interpretation: Negative Thrive Assessment: Date of Thrive Assessment Date Thrive assessed 06/10/24 06/10/24 13:57 Currently or been in a relationship where the following occur: I choose not to answer Const Limitations: wheelchair Resp Effort & Inspection: normal respiratory effort Auscultation: clear to auscultation bilaterally Cardio Jugular venous distension: no JVD Rate: regular rate Rhythm: regular rhythm Heart sounds: S1 normal heart sound present and S2 normal heart sound present Neuro Motor exam (neuro): Abnormal motor strength present (2/5 right side, 5/5 left side) Office Procedures Flu Questionnaire Does the patient have a severe egg allergy?: No Results AMB Hemoglobin A1c AMB Hemoglobin A1c 6.9 % Last Edit by TAWANA Rainey on 06/10/24 14:05 AMB INR Fingerstick AMB INR Fingerstick 2.2 Last Edit by Chhaya Patterson RN on 06/10/24 14:43 [facility] Immunizations Fluarix Triv 3926-4304 (PF) 45 mcg (15 mcg x 3)/0.5 mL IM syringe Performing Provider: Poonam Mejia MD Performing [facility] [place] [facility] Documented (not given) by: TAWANA Rainey on 06/10/24 14:37 Reason Not Given: Patient Refused Results Reviewed Results Reviewed: Laboratory Last Values Hgb A1c (Clinic) 6.9 % (4.0-6.0) H 06/10/24 13:53 Coding Level of Care Code Est Pt Level 4 (94451) Complex EM visit Add On G2211 Diagnoses Hemiparesis following cerebrovascular accident (CVA) I69.359 Elevated PSA R97.20 Type 2 diabetes mellitus without complication, without long-term current use of insulin E11.9 Diabetes mellitus type: type 2 Diabetes mellitus intermodal dispatcher insulin use: without mcfp use Diabetes mellitus complication status: without complication Mild major depression F32.0 Longstanding persistent atrial fibrillation I48.11 Atrial fibrillation type: longstanding persistent Chronic diastolic congestive heart failure I50.32 Heart failure type: diastolic Heart failure chronicity: chronic Seizures R56.9 Essential hypertension I10 Hypertension type: essential hypertension Cerebrovascular accident (CVA), unspecified mechanism I63.9 CVA mechanism: unspecified Asymmetric septal hypertrophy I42.2 Additional Codes KERRY-7 Assessment Billing - KERRY-7 Assessment Tool: KERRY-7 Assessment 82056 ([id number]) PHQ-9 - 39827 - PHQ-9 Billing: Yes ([id number]) Time Spent (min) 24 Assessment & Plan Assessment & Plan (1) Hemiparesis following cerebrovascular accident (CVA): Code(s): I69.359 - Hemiplegia and hemiparesis following cerebral infarction affecting unspecified side Category: Medical (2) Elevated PSA: Code(s): R97.20 - Elevated prostate specific antigen [PSA] Category: Medical (3) Diabetes mellitus: Code(s): E11.9 - Type 2 diabetes mellitus without complications Category: Medical Qualifiers: Diabetes mellitus type: type 2 Diabetes mellitus mcfp insulin use: without mcfp use Diabetes mellitus complication status: without complication Qualified Code(s): E11.9 - Type 2 diabetes mellitus without complications (4) Mild major depression: Code(s): F32.0 - Major depressive disorder, single episode, mild Category: Medical (5) Atrial fibrillation: Code(s): I48.91 - Unspecified atrial fibrillation Category: Medical Qualifiers: Atrial fibrillation type: longstanding persistent Qualified Code(s): I48.11 - Longstanding persistent atrial fibrillation (6) CHF (congestive heart failure): Code(s): I50.9 - Heart failure, unspecified Category: Medical Qualifiers: Heart failure type: diastolic Heart failure chronicity: chronic Qualified Code(s): I50.32 - Chronic diastolic (congestive) heart failure (7) Seizures: Code(s): R56.9 - Unspecified convulsions Category: Medical (8) Hypertension: Code(s): I10 - Essential (primary) hypertension Category: Medical Qualifiers: Hypertension type: essential hypertension Qualified Code(s): I10 - Essential (primary) hypertension (9) Stroke: Comment: 2011 Code(s): I63.9 - Cerebral infarction, unspecified Category: Medical Qualifiers: CVA mechanism: unspecified Qualified Code(s): I63.9 - Cerebral infarction, unspecified (10) Asymmetric septal hypertrophy: Code(s): 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 Category: Medical Plan Continue metformin for diabetes. A1c goal is equal or less than 7%. Blood pressure goal is equal or less than 130/80. Continue chronic anticoagulation for atrial fibrillation and congestive heart failure. Follow-up with cardiology for asymmetric septal hypertrophy, atrial fibrillation and congestive heart failure. Continue the use of wheelchair due to hemiparesis secondary to stroke. Decrease fluoxetine to 20 mg for his mild major depression. Orders: Orders IRON PROFILE 4 Months D64.9 - Anemia, unspecified Complete Blood Count Auto Diff 4 Months D64.9 - Anemia, unspecified Influenza [id number] Immunization Today Z23 - Encounter for immunization AMB Hemoglobin A1c Today E11.9 - Type 2 diabetes mellitus without complications Lipid Panel 4 Months E78.5 - Hyperlipidemia, unspecified Microalbumin, Random (w Creat) 4 Months R80.9 - Proteinuria, unspecified Vitamin D 25-OH Total 4 Months E55.9 - Vitamin D deficiency, unspecified Vitamin B12 and Folate 4 Months E53.8 - Deficiency of other specified B group vitamins Uric Acid 4 Months M10.9 - Gout, unspecified Comprehensive [place]. Panel Fast 4 Months I69.359 - Hemiplegia and hemiparesis following cerebral infarction affecting unspecified side Medications: Changed From fluoxetine 40 mg (2 x 20 mg) PO DAILY 90 caps 0RF To fluoxetine 20 mg PO DAILY 90 days 90 caps 1RF
[2024-06-10 13:59] VITALS: BP 108/70; BMI 28.8
--- OUTSIDE RECORDS SUMMARY | 2024-06-10 15:48 | XMS_ITS ---
Author Organization [facility] Address [address] [place] [address] Care Team Providers Care Gauger Chief Delivery Name Role Phone Endy SMITH, Poonam Primary Care Provider Unavail able Josep Lenz Unavailable [phone] Allergies No Known Allergies REASON FOR VISIT [...] stop date) Never Smoker NA - NA Alcohol Screen Question Answer Notes Did you have a drink containing alcohol in the p ast year? No Points 0 Interpretation Negative Tobacco use other than smoking: Question Answer Notes Are you an other tobacco user? No Tobacco Control (Standard) Question Answer Notes Tobacco use: Nonsmoker Additional Findings: Tobacco non-user Current no nsmoker Problems Problem Type SNOMED Code ICD Code Onset Dates Problem Status W/U Status Risk Notes Problem Polyneuropathy due to type 2 diabetes mellitus (764075027) Type 2 diabetes mellitus with diabetic polyneuropathy (E11.42) Active confirmed Problem Acquired hammer toe of right foot (0103138816213607 ) Other hammer toe(s) (acquired), right foot (M20.41) Active confirmed Problem Acquired hammer toe of left foot (8141434068960996 ) Other hammer toe(s) (acquired), left foot (M20.42) Active confirmed Vital Signs Height 6 ft 2 in in 12/22/2023 Weight 210 lbs lbs 12/22/2023 BMI 26.96 kg/m2 12/22/2023 Procedures Procedure Date Ordered Date Performed Result Body Sit e 30575-WTVUVGT NAIL, 6 OR MORE 12/22/2023 N/A 70927-JPEM SKIN LESIONS, OVER 4 12/22/2023 N/A Encounters Encounter Location Date Provider Diagnosis [facility] [place] [address] [place] [address] 12/22/2023 Josep Lenz Type 2 diabetes mellitus [...] INSTRUCTIONS.pdf) Pending Test Test Name Order Date 08861-MXVOUNQ NAIL, 6 OR MORE 12/22/2023 01687-PTST SKIN LESIONS, OVER 4 12/22/19 24 Next [...] The patient chooses, no pharmaceutical tx - 54162 Keratoma Treatment Parring or Cutting o f Benign Hyperkeratotic Lesion(s) (-57) More than 4 Lesions - The Benign hyperkeratotic lesions, as described above were pared, and/or cut utilizing a sterile 15 blade, tissue nippers, and/or dremel - 11193 Progress Notes * Yousif RAINDOB:1945 (79 yo M)Acc No.[id number]:12/22/2023 Progress Notes Patient:?Yousif RAIN Provider:?Josep Lenz DPM :1945???Age:78 Y???Sex:Male Armaan e:12/22/2023 Address:[address] [place] [address] [address] [facility], [place] Pcp:Poonam Schumacher MD Subjective: * Chief Complaints: * ???At Risk FootcareToe Irrit ation * HPI: ???At Risk footcare:?Pt States Last PCP Visit:?Date?10/31/2023 ???Toe pain:?Location:?B/L feet.?Duration:?several years.?Course:?worse.?Aggravated by:?shoes, any pressure.?Treatments:?change in shoes.? * ROS:?General/Constitutional:?Nausea?denies.?Vomiting?denies.?Hunger Thirst?denies.?Loss appetite?denies.?Chills?denies.?Fatigue?denies.?Fever?denies.?Night Sweats?denies.?Unexplained weight loss?denies.?Unexplained weight gain?denies.?HEENTM:?Dentures?denies.?Dizziness?denies.?Glasses/contacts?denies.?Retinopathy?de nies.?Blurred/double vision?denies.?TMJ?denies.?Discharge/drainage?denies.?Implants?denies.?Sore throat?denies.?Dental implants?denies.?Hard of hearing ?denies.?Difficulty chewing/swallowing/speaking?admits .?Nose bleeds?denies.?Sore mouth?denies.?Respiratory:?On Oxygen?denies.?Pneumonia/pleurisy?denies.?Bronchitis?denies.?Emphysema?denies.?C oughing?denies.?Cough blood?denies.?Shortness of breath?denies.?Wheezing?denies.?Cardiovascular:?Pacemaker?denies.?MVP?denies.?WPW?denies.?CHF?denies.?Heart [...] Unspecified essential hypertension.? * Social History:?Tobacco Use:?Tobacco use other than smoking?Are you an other tobacco user??No ?Tobacco Control (Standard)?Tobacco use:?Nonsmoker ?Additional Findings: Tobacco non-user?Current nonsmoker ???Drugs/Alcohol:?Drugs?Have you used drugs other than those for medical reasons in the past 12 months??No ?Alcohol Screen?Did you have a drink containing alcohol in the past year??No ?Points?0 ?Interpretation?Negative ???Miscellaneous:?Caffeine: yes, frequency:, 1-2 cups per day. ?Exercise: no. ?Occupation: disabled. * Medications:?TakingTamsulosi n HCl 0.4 MG Capsule 1 capsule Orally Once a day Mirtazapine 15 MG Tablet 1 tablet at bedtime Orally Once a day metFORMIN HCl 500 MG Tablet 1 tablet with a meal Orally Once a day Magnesium Oxide 250 MG Tablet 1 tablet as needed Orally Once a day levETIRAcetam 750 MG Tablet 1 tablet Orally every 12 hrs Jardiance 10 MG Tablet 1 tablet Orally Once a day Hydrocortisone 5 MG Tablet 1 tablet with food or milk Orally every 8 hrs FLUoxetine HCl 20 MG Capsule 1 capsule Orally Once a day Ferrous Sulfate 325 (65 Fe) MG Tablet 1 tablet Orally Three times a Week Famotidine 20 MG Tablet 1 tablet at bedtime as needed Orally Once a day Atorvastatin Calcium 40 MG Tablet 1 tablet Orally Once a day Aspirin 81 81 MG Tablet Chewable 1 tablet Orally Once a day Allopurinol 100 MG Tablet 1 tablet Orally Once a day Medication List reviewed and reconciled with the patientTaking Tamsulosin HCl 0.4 MG Capsule 1 capsule Orally Once a day Taking Mirtazapine 15 MG Tablet 1 tablet at bedtime Orally Once a day Taking metFORMIN HCl 500 MG Tablet 1 tablet with a meal Orally Once a day Taking Magnesium Oxide 250 MG Tablet 1 tablet as needed Orally Once a day Taking levETIRAcetam 750 MG Tablet 1 tablet Orally every 12 hrs Taking Jardiance 10 MG Tablet 1 tablet Orally Once a day Taking Hydrocortisone 5 MG Tablet 1 tablet with food or milk Orally every 8 hrs Taking FLUoxetine HCl 20 MG Capsule 1 capsule Orally Once a day Taking Ferrous Sulfate 325 (65 Fe) MG Tablet 1 tablet Orally Three times a Week Taking Famotidine 20 MG Tablet 1 tablet at bedtime as needed Orally Once a day Taking Atorvastatin Calcium 40 MG Tablet 1 tablet Orally Once a day Taking Aspirin 81 81 MG Tablet Chewable 1 tablet Orally Once a day Taking Allopurinol 100 MG Tablet 1 tablet Orally Once a day Medication List reviewed and reconciled with the patient * Allergies:?N.K.D.A.yes[Aller gies Verified] Objective: * Vitals:?Ht: 6 ft 2 in, Wt: 2 10 lbs, BMI: 26.96, Shoe size: 11, Ht-cm: 187.96 cm, Wt-k.25 kg. * ???Past Orders: ???Lab:HEMOGLOBIN A1C (GLYCO HEMOGLOBIN) (Order Date - 11/29/2023) (Collection Date & Time - 11/29/2023 05:03 PM) ? Value Reference Range ?HEMOGLOBIN A1C % (HH) 7.1 * Examination: ???Ophthalmology Referral: ?DIABETES EYE EXAM?Neurological: ?SENSORY:? Neurological exam demonstrates, reduced light touch [...] gear properties exacerbate patient's foot/toe deformity.?Vascular: ?DP PULSES (B):?0/4, B/L.?PT PULSES (B):?0/4, B/L.?CAPILLARY FILL TIME:?delayed, all digits, B/L.?TROPHIC CONDITION-TEXTURE/ELASTICITY/TURGOR/HAIR GROWTH (B):?decreased, B/L.?TEMPERTURE GRADIENT (C):?decreased, cool to cool, proximal to distal, B/L.?PIGMENTATION:?rubrous, B/L.?EDEMA (C):?2/4 , pitting , without aching pain , Leg(s) , Ankle(s) , Foot , B/L.?CLAUDICATION (C):?denies, B/L.?REST PAIN:?denies, B/L.?General Examination: ?GENERAL APPEARANCE:?Reveals a pleasant, alert, well nourished, well- developed, well hydrated individual, who demonstrates proper attention to hygiene/body habitus, and is in no acute distress, Pt serves as own historian for office visit today.?ORIENTED:?person, place, and time.?FOOT EXAM:?Footwear Evaluation? Assessment: * Assessment: 1.?Type 2 diabetes mellitus with diabetic polyneuropathy - E11.42 (Primary)???2.?Tinea unguium - B35.1???3.?Other hammer toe(s) (acquired), right foot - M20.41???Specify :Chronic problem, Worse (4),Rx Management (4)???4.?Other hammer toe(s) (acquired), left foot - M20.42???Specify :Chronic problem, Worse (4),Rx Management (4)??? Plan: * Treatment: 2.?Other hammer toe(s) (acqu [...] The patient chooses, no pharmaceutical tx - 33174.?Keratoma Treatment:?Parring or Cutting of Benign Hyperkeratotic Lesion(s)?(-57) More than 4 Lesions - The Benign hyperkeratotic lesions, as described above were pared, and/or cut utilizing a sterile 15 blade, tissue nippers, and/or dremel - 62283.? * Procedure Codes:?89911 DEBRI DE NAIL, 6 OR MORE, Modifiers: XS 46446 TRIM SKIN LESIONS, OVER 4, Modifiers: XS [...] pair of custom heat-molded inserts was dispensed.? ??Screening/Special Tests:?Fall Risk?Screening:?No falls in the past year ?FALLS: Screening for Future Fall Risk?Have you had any falls with injury in the past year??No * Follow Up:?3 Months * Images: * Sign off status: Completed true * Provider:?Josep Lenz DPM Date:?2023 Generated for Tayo kemp/Isaias/[place]rem[place]ne on:?06/10/2024 03:48 PM EST History and Physical Notes * [...] Lower Extremity Neurological Exa m performed:: Yes Visual exam of foot performed:: Yes Date: 12/22/2023 ORIENTED: person, place, and t andrew Footwear Evaluation Footwear Evaluation performe d:: Yes Ophthalmology Referral DIABETES EYE EXAM Procedure Perform ed:: No Eye Exam not performed:: No reason speci fied Diabetic Retinopathy Screening:: No Vascular DP PULSES (B): 0/4, [...]
--- OUTSIDE RECORDS SUMMARY | 2024-06-10 15:48 | XMS_ITS ---
Author Organization [facility] Address [address] [place] [address] Care Team Providers Care Design Technology Professor Name Role Phone Endy SMITH, Poonam Primary Care Provider Unavail Josep [place] Unavailable [phone] REASON FOR VISIT Cancel Encounters Encounter Location Date Provider Diagnosis [facility] [address] [place] [address] 03/21/2024 Josep Lenz Plan Of Treatment No Information Progress Notes * Yousif RAINDOB:1945 (79 yo M)Acc No.[id number]:03/21/2024 Patient:?Yousif RAIN :1945???Age:79 Y???Sex:Male Address:[address] [place] [address], [place], [address] * true * Date:? Generated for Suhasi justo/Isaias/eTransmitting on:?06/10/2024 03:48 PM EST
--- OUTSIDE RECORDS SUMMARY | 2024-06-10 15:49 | XMS_ITS | Data Portability ---
Author Organization [employer] [place] [facility] Address [address] [place] [address] Care Team Providers Care Homogenizer Operator Name Role Phone HIM FARA OTHER Assessment Encounter Date Assessment Date Assessment LastModified by Organization Details LastModified Time 02/14/2024 02/14/2024 As noted, we were called to see this patient regarding concerns of catheter discomfort. Evaluation in the field was performed by my frame wirer colleague, as noted above, I provided real-time [...] not on abx at this time. Today ELECTRIFIER OPERATOR noted that pt began to have [...] of any new or worsening serious symptoms [email or web address] Not available 02/14/2024 13:43:37 Plan of Treatment Reminders Order Date Submit Date Provider Last Modified By Organization Details Last Modified Time Details Appointments None recorded. Lab culture, urine 2023 [facility] (Centralized Electronic Ordering - All Locations), Patient Can Go To The Location Of Their Choice, [facility] 12:06:07 urinalysis, dipstick 2023 rsullivan 84 Main - [facility], [address] [place] [address], [id number], 13:38:24 BMP, serum or plasma 2023 024 [facility], [address] [place] [address], [id number], 13:55:24 hemoglobin + hematocrit, blood 2023 024 gbaci [facility], [address] [place] [address], [id number], 14:07:51 Referral None recorded. Procedures None recorded. Surgeries None recorded. Imaging None recorded. Medication Orders clotrimazol e 1 % topical cream 2023 024 [facility]armacy #[id number], [address] [facility], [place], [address], 4 13:20:20 prednisone 20 mg tablet 2023 024 [facility], [address] [place], [place], [id number], 4 13:20:13 prednisone 20 mg tablet 2023 024 [facility]/Pharmacy #[id number], [address] [place], [address], 4 13:20:19 Tylenol 325 mg tablet 2021 022 [facility], [address] [place], [place], [id number], 12:41:29 Patient TargetsNo targets recorded. Patient InstructionsNo instructions recorded. Reason for Referral None Reported. Results Created Date Observation Date Name Description Value Unit Range Abnormal Flag Note LastModifiedBy Organization Detail LastModifiedTime 09/22/1909/22/2023 hemog lobin + hemat ocrit , blood Hemoglobin 13.7 Not Available Main - [facility] [address] [place] [address], [id number], 09/22/2023 13:55:39 09/22/19 24 09/22/2023 hemog lobin + hemat ocrit , blood Hematocrit 40 Not Available Main - [facility] [address] [place] [address], [id number], 09/22/2023 13:55:39 09/22/19 24 09/22/2023 BMP, serum or plasm a BUN 21 Not Available Main - [facility] [address], [address], 09/22/2023 13:10:34 09/22/19 24 09/22/2023 BMP, serum or plasm a Ca 1.07 Not Available Main - [facility] [address], [address], 09/22/2023 13:10:34 09/22/19 24 09/22/2023 BMP, serum or plasm a CI- 107 Not Available Main - [facility] [address], [address], 09/22/2023 13:10:34 09/22/19 24 09/22/2023 BMP, serum or plasm a CRE 1.57 Not Available Main - [facility] [address], [address], 09/22/2023 13:10:34 09/22/19 24 09/22/2023 BMP, serum or plasm a GLU 146 Not Available Main - [facility] [address], [address], 09/22/2023 13:10:34 09/22/19 24 09/22/2023 BMP, serum or plasm a K+ 4.7 Not Available Main - [facility] [address], [address], 09/22/2023 13:10:34 09/22/19 24 09/22/2023 BMP, serum or plasm a Na+ 146 Not Available Main - [facility] [address], [address], 09/22/2023 13:10:34 09/22/19 24 09/22/2023 BMP, serum or plasm a tCO2 27 Not Available Main - [facility] [address], [address], 09/22/2023 13:10:34 02/14/20 24 02/17/2024 URINE CULTU RE,CO MPREH ENSIV E urine culture,comp rehensive Final report abnormal Not Available [facility] [address] [facility], [place], [address], 02/17/2024 10:06:10 02/14/20 24 02/17/2024 URINE CULTU RE,CO MPREH ENSIV E result 1 Proteu s mirabi lis abnormal Great er than 100,0 00 colon y formi ng units per mL Susce ptibi lity profi le is consi stent with a proba ble ESBL. Not Available [facility] [address] [facility], [place], [address], 02/17/2024 10:06:10 02/14/2002/17/2024 URINE CULTU RE,CO MPREH [...] thopr im/Kumar lfa S Not Available [facility] [address] [facility], [place], [address], 02/17/2024 10:06:10 Result Notes None recorded. Medical [...] Available Not Available N ot Available [employer] [place] Lite kit USE DIRECTED active Not Available [...] % 98.9 [degF] 16 /min 68 /min 99098.3 2 g 104 mm[Hg] 74 mm[Hg] Not Available [facility] 4 13:04:35 Date Recorded Body height Body weight Respiratory rate Body temperature Oxygen saturation Oxygen saturation in Arterial blood by Pulse oximetry Heart rate Systolic blood pressure Diastolic blood pressure Provider Name and Address Organization Details Last Updated DateTime 4 187.96 cm 735406. 608 g 16 /min 98.6 [degF] 99 % 99 % 80 /min 116 mm[Hg] 71 mm[Hg] Not Available [facility] 4 13:29:45 Date Recorded Heart rate Respiratory rate Oxygen saturation Oxygen saturation in Arterial blood by Pulse oximetry Body temperature Systolic blood pressure Diastolic blood pressure Provider Name and Address Organization Details Last Updated DateTime 2 64 /min 16 /min 96 % 96 % 98.4 [degF] 116 mm[Hg] 79 mm[Hg] Prakash Willis MD [address] [place] [address],[address], [place], [address] [place], [place] [address] [facility] 22:59:54 Date Recorded Oxygen saturation Oxygen saturation in Arterial blood by Pulse oximetry Respiratory rate Heart rate Heart rate Oxygen saturation Oxygen saturation in Arterial blood by Pulse oximetry Respiratory rate Systolic blood pressure Diastolic blood pressure Systolic blood pressure Diastolic blood pressure Provider Name and Address Organization Details Last Updated DateTime 95 % 95 % 16 /min 76 /min 76 /min 95 % 95 % 16 /min 131 mm[Hg] 78 mm[Hg] 131 mm[Hg] 78 mm[Hg] Not Available [facility] - [facility] 12:54:45 Social History None recorded. Functional Status None recorded. Mental Status None recorded. Family History Nothing Reported. Medical History No medical history recorded. Past Encounters Encounter ID Performer Location Encounter Start Date Encounter Closed Date Diagnosis/Indication Diagnosis SNOMED-CT Code Diagnosis ICD10 Code Diagnosis Note [id number] Prakash Willis MD [facility] - [address] [address] 07/15/2021 22:59:29 12/07/2021 16:05:03 Blister 483013607 R23.8 No red flag symptoms- Has close f/u with dermatolog y; may need drainage (likely has collection of blood in blister)- Does not wish to go to urgent care/ED for drainage at this time- Has close f/u with PCP as well- Advised to use bandage to wrap toe [id number] Prakash Willis MD [address] [address] 03/09/2022 12:31:12 03/11/2022 10:44:07 Pain of right knee joint 4357947231 97048 M25.561 Can bear weight. Cannot tolerate NSAIDS; will rx tylenol and encourage f/u with PCP in 1 week [id number] ROSY DUCKWORTH MD [facility] - [address] [address] 09/22/2023 13:04:26 09/22/2023 21:08:47 Contact dermatitis 49574648 L25.9 Evaluation in the field was performed by my frame wirer colleague, as noted above, I provided real-time [...] days ( first dose given by the frame wirer) -Clotrimaz ole cream 1 %-Red flags discussed [...] from the leg or any other concerns. [id number] Manoj Angela MD Main - [facility] [address] [place] [phone] 02/14/2024 13:29:41 02/14/2024 15:51:41 Indwelling urethral urinary catheter in situ 573368342 Z96.0 Health Concerns Section Related Observation LastModified by Organization Detai ls LastModified Time None Recorded Concern Status LastModified by Organization Details LastModified Time None Recorded Advance Directives Directive None Recorded Payers Encounter Date Sequence Insurance Name Policy Number Policy Sims Covered Member ID Sims Member ID Guarantor Name 07/15/2021 1 [facility] - DOS PRIOR TO 2022 - DUAL ELIGIBLE (MEDICARE REPLACEMENT/ADV ANTAGE - HMO) Yousfi Mcintosh [id number] Yousif Mcintosh 03/09/2022 1 [facility] - DOS PRIOR TO 2022 - DUAL ELIGIBLE (MEDICARE REPLACEMENT/ADV ANTAGE - HMO) Yousif Mcinotsh [id number] Yousif Mcintosh 09/22/2023 1 [facility] - DOS ON OR AFTER 2022 - DUAL ELIGIBLE - [facility] [employer] AND ONE CARE (MEDICARE REPLACEMENT/ADV ANTAGE - HMO) Yousif Mcintosh [id number] Yousif Mcintosh 02/14/2024 1 [facility] - DOS ON OR AFTER 2022 - DUAL ELIGIBLE - [facility] AND ONE CARE (MEDICARE REPLACEMENT/ADV ANTAGE - HMO) Yousif Mcintosh [id number] Yousif Mcintosh Notes Date Note Type Note Provider Name and Address Organization Details Recorded Time 07/15/2021 text/html Per frame wirer an d patient:- patient states that he [...] purulent drainage- no fevers Prakash Willis MD [address] [place] [address],[address], [place], [address], [employer] 07/15/2021 23:02:30 03/09/2022 text/html [facility] Nursing Assessment: Reason For Request: Pain in neck and right knee Chief Complaints: Pain PMH: CHF, Diabetes, Hypertension Allergies: No Known Comments: ELECTRIFIER OPERATOR calling for member to have [facility] visit for atraumatic L knee pain x 2 days no OTC's via [place] int ................... ................... ................... ................... ................... ................... ................... ........ Confectionery Drops Machine Operator Note: Complaint of knee pain x2 days, pt twisted exiting a vehicle and felt a pop. Pt called looking for pain management, no deformities noted no swelling good color to the feet (+) pulses, pt is able to bare weight to transfer, [facility] contacted and ordered 500mg PO Tylenol and was administered, pt educated on RICE techniques and told to follow up with PCP if the pain doesn? t change. ................... ................... ................... ................... ................... ................... ................... ........ Disposition: Fulfilled Prakash Willis MD [address] [place] [address],[address], [place], [address], [employer] 03/09/2022 17:17:03 09/22/2023 text/html CRC Nurse Triage Notes (Clarissa Rae): Reason For Request: Pt's ELECTRIFIER OPERATOR reporting right leg edema with discharge going on 1 week, with some swelling, redness and discharge Chief Complaints: Edema, Cellulitis PMH: CHF, Diabetes, Hypertension Allergies: No Known Comments: Members ELECTRIFIER OPERATOR calling in to place a referral, member identified via name and . Member with probable cellulitis. Member with redness and edema to right lower leg for a week. Per ELECTRIFIER OPERATOR skin is dry and weeping, +pitting, denies warmth, no fever/chills, not on any diuretics. Member with hx of cellulitis. Member would like to be evaluated. Confectionery Drops Machine Operator POC Test Results from Jace Arroyo [facility] (13:12:53) pH: 7.406 pH units pCO2: 38.3 mmHg pO2: 27.2 mmHg Na: 141 mmol/L K: 4.7 mmol/L iCa: 1707 mmol/L Cl: 107 mmol/L TCO2: 23.6 mEq/L Hct: 40 % Hb: 13.7 g/dL Glu: 146 mg/dL Lac: 1.22 mmol/L Cr: 1.57 mg/dL BUN: 27 mg/dL A ................... ................... ................... ................... ................... ................... ................... ........ Confectionery Drops Machine Operator Note From Jace Arroyo: Pt co rash/bug [...] the touch. POc bloodwork unremarkable. Lungs clear. C contacted and 20mg prednisone po given and RX called in for prednisone and Clotrimazole 1% cream twice a day. Pt advised to monitor if worsening or has pain to call back. Pt advised to follow up with pcp. Pt advised to monitor BS while on prednisone. Pt education on signs indicating the ER. ................... ................... ................... ................... ................... ................... ................... ........ Disposition: Fulfilled ROSY DUCKWORTH MD [address] [facility],[address], [place], [address], [employer] 09/22/2023 14:08:54 02/14/2024 text/html [facility] Nurse Triage Notes (Josephine Lilly): Reason For Request: ELECTRIFIER OPERATOR [facility] calling in, pt experiencing pain near catheter site Chief Complaints: Urinary catheter/nephrostom y tube problems PMH: Congestive Heart Failure, Hypertension, Stroke, Epilepsy/Seizure Disorder, Diabetes Mellitus Type 2 Comments: Went to ER on Monday for urinary retention. New goldman catheter placed. Having pain at insertion site that started today with hematuria. Denies fever, low back pain, or abdominal pain. On coumadin. Confectionery Drops Machine Operator Organization Information for [employer] Name: [employer]? Address: [address] [place] [address], Client Operations Manager: Kingsley Torres MD [facility] No.: [id number] Confectionery Drops Machine Operator POC Test Results from [employer] Blood Glucose Measurement (13:25:24) Blood Glucose: 181 mg/dL Urine Dipstick (13:25:27) Urine leukocytes: + TAMMY Urine nitrites: - NIT Urine urobilinogen: - URO Urine protein: ++ PRO Urine pH: 6.5 pH Urine blood: +++ BLO Urine specific gravity: 1.010 SG Urine ketones: +/- KET Urine bilirubin: - CAITLIN Urine glucose: ++++ GLU ................... ................... ................... ................... ................... ................... ................... ........ Confectionery Drops Machine Operator Note From Lacho Andrews: [facility] makes pt contact, 79 yom w/ c/c of urinary catheter insertion site pain and hematuria.[facility] obtains pt consent. Vital signs are gathered and urine sample is obtained for testing and culture from catheter tubing. Urine analysis is performed and pt is physically assessed. He is conscious, alert, and oriented and answering all questions appropriately through his ELECTRIFIER OPERATOR, who is translating for the him. [...] is noted in his catheter bag and ELECTRIFIER OPERATOR reports a strong ammonia smell to his urine when she emptied his bag this morning.[facility] contacts [facility] [place] and discusses the above assessment and findings. [facility] [place] orders urine to be sent to the lab. Pt is informed he will receive test results in a couple days. [facility] ensures pt and caregiver have no further questions or concerns. [facility] drops urine sample off at [facility] is clear. Report completed by KRISTAL Andrews [id number] [facility] [place] Lab Orders: culture, urine: Performed ................... ................... ................... ................... ................... ................... ................... ........ [facility] [place] [place] Consulted: Manoj Angela ................... ................... ................... ................... ................... ................... ................... ........ Disposition: Fulfilled Manoj Angela MD [address] [place] [address],[address], [place], [address], [email or web address] 02/14/2024 14:39:55
--- OUTSIDE RECORDS SUMMARY | 2024-06-10 15:49 | XMS_ITS | Patient Health Record ---
Author Organization [facility] Address [address] [facility] [place] [address] Care Team Providers Care Tipple Engineer Name Role Phone Endy SMITH, Poonam Primary Care Provider Unavail able Josep Lenz Unavailable [phone] Allergies No Known Allergies Results Component Value Reference Range Notes HEMOGLOBIN A1C (GLYCOHEMOGLO BIN) Reviewed date:05/04/2024 05:04:07 PM Interpretation: Performing Lab: Notes/Report: HEMOGLOBIN A1C % (HH) 7.1 Reason For Referral No Information Medications Medication [...] Problem Acquired hammer toe of right foot (3309256459320449 ) Other hammer toe(s) (acquired), right foot (M20.41) Active confirmed Problem Acquired hammer toe of left foot (2334653625282600 ) Other hammer toe(s) (acquired), left foot (M20.42) Active confirmed Problem Polyneuropathy due to type 2 diabetes mellitus (537424991) Type 2 diabetes mellitus with diabetic polyneuropathy (E11.42) Active confirmed Vital Signs Height 6 ft 2 in in 12/22/2023 Weight 210 lbs lbs 12/22/2023 BMI 26.96 kg/m2 12/22/2023 Procedures Procedure Date Ordered Date Performed Result Body Sit e 42018-XUOGAGG NAIL, 6 OR MORE 12/22/2023 N/A 01886-IZUD SKIN LESIONS, OVER 4 12/22/2023 N/A Encounters Encounter Location Date Provider Diagnosis [facility] [address] [address] 12/22/2023 Josep Lenz Type 2 diabetes mellitus with diabetic polyneuropathy E11.42 ; Tinea unguium B35.1 ; Other hammer toe(s) (acquired), right foot M20.41 and Other hammer toe(s) (acquired), left foot M20.[address] [facility] [address] 03/21/2024 Josep Lenz Assessments Encounter Date Diagnosis [...] Treatment Pending Test Test Name Order Date 06615-JIAWJKO NAIL, 6 OR MORE 12/22/2023 91081-QBOW SKIN LESIONS, OVER 4 12/22/19 24 Insurance Providers Payer Name Payer Address Payer Phone Subscriber Number Group Number Insured Name Patient Relationship to Insured Coverage Start Date Coverage End Date [facility] [employer] S[employer] Claims [address] [place] [address] [phone] [id number] Yousif Mcintosh Self - patient is the insured Medical (General) History Medical History History ICD Code Diabetic Epilepsy Gout Stroke Hypercholesterolemia Surgical History Surgery Date(Month/Year)
--- OUTSIDE RECORDS SUMMARY | 2024-06-10 15:49 | XMS_ITS ---
Author Organization [facility] Address [address] [place] [address] Care Team Providers Care Ice Skating Instructor Name Role Phone Endy SMITH, Poonam Primary Care Provider Unavail Josep Westbrook Unavailable [phone] Encounters Encounter Location Date Provider Diagnosis [address] [address] 03/22/2024 Josep Lenz Plan Of Treatment No Information Progress Notes * Yousif RAINDOB:1945 (79 yo M)Acc No.[id number]:03/22/2024 Progress Note Patient:Yousif BENITO Provider:?Josep Lenz DPM :1945???Age:79 Y???Sex:Male Armaan e:03/22/2024 Address:[address] [place], [place] [id number] Pcp:Poonam Schumacher MD Subjective: * Chief Complaints: * ??? * Medical History:? Objective: * Vitals:? Assessment: Plan: * Treatment: * Images: * The named appointment provid er may or may not be the originator of this progress note, and it is not deemed complete until electronically signed by the appointment provider. Sign off status: Pending * Provider:?Josep Lenz DPM Date:?2023 Generated for Taoy kemp/Isaias/Julitoransmitting on:?06/10/2024 03:48 PM EST
--- OUTSIDE RECORDS SUMMARY | 2024-06-10 15:49 | XMS_ITS | Clinical Summary ---
Author Organization [facility] Address [address] [place] [address] Phone Care Team Providers Care Sharepoint Solutions Architect Name Role Phone Poonam Hernandez MD Primary Care Provider [phone] Allergies Active Allergy Reactions Criticality Noted Date [...] patient's age to complete this topic Insurance [facility] [place] [id number] [facility] [place] [phone] [address] [place] [address] Care Teams Sharepoint Solutions Architect Relationship Specialty Start Date End Date Poonam Hernandez MD [address] [place], [place] PCP - General Internal Medicine 04/14/21
--- OUTSIDE RECORDS SUMMARY | 2024-06-10 15:49 | XMS_ITS | Clinical Summary ---
Author Organization [employer] Address [address] [place] [address] [address] [place] [address] Care Team Providers Care Network Development Coordinator Name Role Phone Unavailable Primary Care Provider [...]
== END 2024-06-10 14:34 | disposition home or self-care (01) ==
PROVIDERS: PCP Internal Medicine; Visit Provider Internal Medicine
DX: I69.359 Hemiplegia and hemiparesis following cerebral infarction affecting unspecified side (principal); E11.9 Type 2 diabetes mellitus without complications; F32.0 Major depressive disorder, single episode, mild; I48.11 Longstanding persistent atrial fibrillation; I50.32 Chronic diastolic (congestive) heart failure; R56.9 Unspecified convulsions; I42.2 Other hypertrophic cardiomyopathy; R97.20 Elevated prostate specific antigen [PSA]; I10 Essential (primary) hypertension

== ENCOUNTER → 2024-06-10 13:49 | Outpatient (BNVA) | payer OTHER, SELFPAY | PROVIDERS: PCP Internal Medicine; Visit Provider Internal Medicine | DX: R97.20 Elevated prostate specific antigen [PSA] (principal); F32.0 Major depressive disorder, single episode, mild; I48.11 Longstanding persistent atrial fibrillation; I11.0 Hypertensive heart disease with heart failure; I50.32 Chronic diastolic (congestive) heart failure; I63.9 Cerebral infarction, unspecified; I42.2 Other hypertrophic cardiomyopathy; R56.9 Unspecified convulsions; E11.9 Type 2 diabetes mellitus without complications | CPT/HCPCS: 83036; 96127; 99212 ==

== ENCOUNTER 2024-06-11 11:48 | Outpatient (AMB) | payer OTHER, SELFPAY ==
--- NOTE | 2024-06-11 12:30 | MHC.OFFVIS ---
Vital Signs 06/11/24 12:33 Height 6 ft 2 in Weight 223 lb 8.78 oz BMI 28.7 BP 110/60 Blood Pressure Location Lt brachial Position Sitting Pulse 85 Pulse Source Pulse Oximeter Intake Visit Reasons: r/s 04/01/24 6 mos followup Emergency Medical Service Coordinator Required: Yes Emergency Medical Service Coordinator Language: Double End Production Grinder Name: nidiae/kyrgyz Accompanied by: Employee Allergies No Known Allergies Allergy (Verified 06/10/24 14:42) Medication List - Last Reconciled 06/11/24 by Wing Chacon MD [adult diapers pull-ups As directed] allopurinol 100 mg PO DAILY aspirin 81 mg PO DAILY 3 months atorvastatin 40 mg PO BEDTIME 90 days [bed side table As directed] blood sugar diagnostic (Front Flip Ultra Test strips) test once per day blood-glucose meter (Front Flip Ultra2 Meter) test once per day commode (bedside commode) As directed empagliflozin (Jardiance) 10 mg PO DAILY 90 days famotidine 20 mg PO DAILY PRN 30 days ferrous sulfate 325 mg PO DAILY 60 days finasteride 5 mg PO DAILY 90 days fluoxetine 20 mg PO DAILY 90 days [gloves As directed] hydrocortisone (Cortef) 10 mg (2 x 5 mg) PO DAILY [incontinent wipes As directed] lancets ([employer] Delica Safety Lancet) test once per day [Legs rests for Dynaride 19 TWC non elevating As directed] levetiracetam 750 mg PO BID 3 months magnesium oxide 400 mg PO DAILY 90 days metformin 500 mg PO DAILY 90 days metoprolol succinate ER 12.5 mg (1/2 x 25 mg) PO DAILY mirtazapine 15 mg PO BEDTIME 3 months nebulizers (VixOne Nebulizer-Adult Mask) As directed- tube like [power wheelchair As directed] tamsulosin 0.4 mg PO DAILY 3 months underpads (Bed Underpads) As directed warfarin 5 mg See Protocol PO MOFR warfarin 2.5 mg See Protocol PO SUTUWETHSA [wipes As directed] HPI Comments Details: Yousif returns for follow-up regarding atrial fibrillation. By EKGs, he has had atrial fibrillation from 2011 or so. Hence at least 10 years. For meds, he is on small dose of beta-blockers. He is also on warfarin. There is a history of stroke from many years ago. Comes to clinic in a wheelchair. RUBBER STAMP DIES INSPECTOR is along with him. He states that he feels fine. Denies any cardiac symptoms. [facility] Medical History (Updated 06/10/24 @ 19:33 by Poonam Mejia MD) Renal insufficiency CKD (chronic kidney disease) Physical exam Iron deficiency anemia Psoriasis Stroke Seizures Dyslipidemia BPH (benign prostatic hyperplasia) Hypovitaminosis D Gout Abnormal laboratory test Hypertension Diabetes Surgical History History of open reduction and internal fixation (ORIF) procedure History of kidney stones Family History Mother Heart problem Father Bone cancer Social History Household Members: None Housing: Apartment Do you presently have visiting nurse or other home services: Yes Unable to assess alcohol history related to: Unknown Alcohol intake: never Patient Tobacco Use Status: Never used Tobacco e-Cigarette/Vaping Use: Never Used Second Hand Smoke Exposure: No Advance Directives Date on File: 10/17/22 service: No Current occupational status: disabled Cognitive needs: Yes (wheelchair) Hearing needs: No Vision needs: No Review of Systems Const Denies chills, Denies fatigue, Denies fever(s), Denies frequent falls, Denies weakness, Denies weight gain and Denies weight loss ENT Denies dizziness Card Denies chest pain, Denies leg edema, Denies lightheadedness, Denies palpitations, Denies dyspnea and Denies dyspnea on exertion Resp Denies cough, Denies dyspnea and Denies dyspnea on exertion GI Denies hematochezia Musc Denies abnormal gait, Denies muscle weakness, Denies numbness, Denies radiating pain into limb and Denies tingling Neuro Denies abnormal gait, Denies dizziness, Denies frequent falls, Denies numbness, Denies tingling and Denies weakness Endo Denies fatigue and Denies palpitations Physical Exam Vital Signs: Last Vital Signs Pulse 85 06/11/24 12:33 BP 110/60 06/11/24 12:33 BMI result Body Mass Index 28.7 Const General: comfortable and no acute distress Orientation/consciousness: patient oriented x3 HEENT Other: Unremarkable Head: Yes normal to inspection Neck Neck: Yes normal visual inspection Chest Chest palpation & inspection: normal inspection of the chest Resp Auscultation: clear to auscultation bilaterally Cardio Palpation: normal PMI Heart sounds: S1 normal heart sound present, S2 normal heart sound present, no gallops, no murmurs and no rubs GI Palpation (GI): Soft to palpation Back/Spine/Pelvis Other: unremarkable Skin General skin exam: no rashes or lesions noted Neuro General: patient oriented x3 Extrem General: Yes normal to inspection Psych Mental Status: mental status grossly normal Assessment & Plan Assessment & Plan (1) Atrial fibrillation: Code(s): I48.91 - Unspecified atrial fibrillation Category: Medical Qualifiers: Atrial fibrillation type: longstanding persistent Qualified Code(s): I48.11 - Longstanding persistent atrial fibrillation Plan: Has been present for at least 10 years. He remains on warfarin. Not clear why he is also taking aspirin. Can stop that. In the Holter monitor, underlying rhythm is atrial fibrillation with an average rate of 71/Min. Thought to be good rate control. 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 No specific findings of LV outflow tract obstruction. Can be followed up as needed. No overt heart failure findings. Medications: Discontinued aspirin Discontinued Reason: Doctor's Order 81 mg PO DAILY 3 months 90 tabs 3RF Coding Level of Care Code Est Pt Level 4 (03497) Diagnoses Longstanding persistent atrial fibrillation I48.11 Atrial fibrillation type: longstanding persistent Asymmetric septal hypertrophy I42.2
[2024-06-11 12:33] VITALS: BP 110/60; PULSE 85; BMI 28.7
--- OUTSIDE RECORDS SUMMARY | 2024-06-11 14:24 | XMS_ITS | Clinical Summary ---
Author Organization [facility] Address [address] [place] [address] [address] [place] [address] Care Team Providers Care Oil Field Worker Name Role Phone Unavailable Primary Care Provider [...] (1 of 2) 01/20/1996 Pneumococcal Vaccine: 50+ Years (2 of 2 - PCV) 05/01/2013 05/01/2012 RSV Patients and Patients Aged 60 years or older (1 - 1-dose 75+ series) 2021 COVID-19 Vaccine ( - 2023-2 5 season) 2023 07/09/2020, 06/11/2020 Influenza Vaccine (#1) 2023 , 03/30/2023, 03/22/2006 HIB Vaccines Aged Out No longer [...]
--- OUTSIDE RECORDS SUMMARY | 2024-06-11 14:25 | XMS_ITS | Clinical Summary ---
Author Organization [facility] Address [address] [place] [address] Phone Care Team Providers Care Healthcare Economics Consultant Name Role Phone Poonam Hernandez MD Primary Care Provider [phone] Allergies Active Allergy Reactions Criticality Noted Date [...] patient's age to complete this topic Insurance [facility] [place] [id number] [facility] [place] [id number] [address] [place] [address] Care Teams Healthcare Economics Consultant Relationship Specialty Start Date End Date Poonam Hernandez MD [address] [place], [place] PCP - General Internal Medicine 04/14/21
== END 2024-06-11 12:46 | disposition home or self-care (01) ==
PROVIDERS: PCP Internal Medicine; Visit Provider Internal Medicine
DX: I48.11 Longstanding persistent atrial fibrillation (principal); I42.2 Other hypertrophic cardiomyopathy
CPT/HCPCS: 99214

== ENCOUNTER → 2024-06-11 11:48 | Outpatient (BNVA) | payer OTHER, SELFPAY | PROVIDERS: PCP Internal Medicine; Visit Provider Internal Medicine | DX: I48.11 Longstanding persistent atrial fibrillation (principal); I42.2 Other hypertrophic cardiomyopathy | CPT/HCPCS: 99212 ==

== ENCOUNTER → 2024-06-25 14:41 | Outpatient (BNVA) | payer OTHER, SELFPAY | PROVIDERS: PCP Internal Medicine; Visit Provider Internal Medicine ==

== ENCOUNTER → 2024-07-09 14:21 | Outpatient (BNVA) | payer OTHER, SELFPAY | PROVIDERS: PCP Internal Medicine; Visit Provider Internal Medicine Medical Oncology ==

== ENCOUNTER 2024-07-17 11:56 | Outpatient (AMB) | payer OTHER, SELFPAY ==
--- NOTE | 2024-07-17 13:18 | MHC.OFFVISCO ---
Intake Intake Visit Reasons: Anticoagulation Allergies No Known Allergies Allergy (Verified 07/17/24 13:17) Medication List - Last Reconciled 07/17/24 by Sabra Ybarra RN [adult diapers pull-ups As directed] allopurinol 100 mg PO DAILY atorvastatin 40 mg PO BEDTIME 90 days [bed side table As directed] blood sugar diagnostic (OneTouch Ultra Test strips) test once per day blood-glucose meter (Blue NileTouch Ultra2 Meter) test once per day commode (bedside commode) As directed empagliflozin (Jardiance) 10 mg PO DAILY 90 days enoxaparin (Lovenox) 150 mg subcut DAILY 7 days famotidine 20 mg PO DAILY PRN 30 days ferrous sulfate 325 mg PO DAILY 60 days finasteride 5 mg PO DAILY 90 days fluoxetine 20 mg PO DAILY 90 days [gloves As directed] hydrocortisone (Cortef) 10 mg (2 x 5 mg) PO DAILY [incontinent wipes As directed] lancets ([employer] Delica Safety Lancet) test once per day [Legs rests for Dynaride 19 TWC non elevating Use daily prn] levetiracetam 750 mg PO BID 3 months magnesium oxide 400 mg PO DAILY 90 days metformin 500 mg PO DAILY 90 days metoprolol succinate ER 12.5 mg (1/2 x 25 mg) PO DAILY mirtazapine 15 mg PO BEDTIME 3 months nebulizers (VixOne Nebulizer-Adult Mask) As directed- tube like [power wheelchair As directed] tamsulosin 0.4 mg PO DAILY 3 months underpads (Bed Underpads) As directed warfarin 5 mg See Protocol PO MOFR warfarin 2.5 mg See Protocol PO SUTUWETHSA [wipes As directed] Nursing Note INR received [facility] nurse Luan, INR today is 2.2 inr range is 2-3 nurse is with pt Patient status: pt to have prostate bx on 07/22/24 with 5 day hold of warfarin and lovenox bridge luan states pt last dose of warfarin was yesterday Denies any signs and symptoms of any unusual bruising, bleeding or clotting Medication or supplements: no changes, lovenox 150mg daily per bridging instructions Diet: same, avoid greens post proc Activity: same Dose : 5 day hold of warfarin prior to proc, start lovenox tomm am per instructions, to be given daily, last dose of lovenox 07/21/24 am. resume lovenox and warfarin post proc if ok with md Dosing and diet instructions given with next retest date of 07/26/24 Nurse verbalizes understanding of instructions given with accurate read back warfarin hold and lovenox bridging instructions faxed to [facility] [phone] Anti-Coag Initial Assessment Social Hx Patient Tobacco Use Status: Never used Tobacco alcohol intake: never Coding Level of Care Code Est Patient Level 2 Diagnoses Current use of anticoagulant therapy Z79.01 Results AMB INR Fingerstick AMB INR Fingerstick 2.2 Last Edit by Sabra Ybarra RN on 07/17/24 13:26 Assessment & Plan Assessment & Plan (1) Current use of anticoagulant therapy: Code(s): Z79.01 - FPC (current) use of anticoagulants Category: Medical
--- OUTSIDE RECORDS SUMMARY | 2024-07-17 14:30 | XMS_ITS ---
Author Organization [facility] Address [address] [place] [address] Care Team Providers Care Needle Punch Machine Operator Name Role Phone Endy SMITH, Poonam Primary Care Provider Unavail Josep Westbrook Unavailable [phone] Encounters Encounter Location Date Provider Diagnosis [address] [address] 03/22/2024 Josep Lenz Plan Of Treatment No Information Progress Notes * Yousif RAINDOB:1945 (79 yo M)Acc No.[id number]:03/22/2024 Progress Note Patient:Yousif BENITO Provider:?Josep Lenz DPM :1945???Age:79 Y???Sex:Male Armaan e:03/22/2024 Address:[address] [place], [place] [address] Pcp:Poonam Schumacher MD Subjective: * Chief Complaints: [...] Lenz DPM Date:?2023 Generated for Tayo kemp/Isaias/Sarojsmitting on:?07/17/2024 02:30 PM EDT
--- OUTSIDE RECORDS SUMMARY | 2024-07-17 14:30 | XMS_ITS | Patient Health Record ---
Author Organization [facility] Address [address] [place] [address] Care Team Providers Care Rougher For Cement Name Role Phone Endy SMITH, Poonam Primary Care Provider Unavail able Josep Lenz Unavailable [phone] Allergies No Known Allergies Results Component Value [...] Problem Acquired hammer toe of right foot (5823279041019194 ) Other hammer toe(s) (acquired), right foot (M20.41) Active confirmed Problem Acquired hammer toe of left foot (4726861105445037 ) Other hammer toe(s) (acquired), left foot (M20.42) Active confirmed Problem Polyneuropathy due to type 2 diabetes mellitus (029459106) Type 2 diabetes mellitus with diabetic polyneuropathy (E11.42) Active confirmed Vital Signs Height 6 ft 2 in in 12/22/2023 Weight 210 lbs lbs 12/22/2023 BMI 26.96 kg/m2 12/22/2023 Procedures Procedure Date Ordered Date Performed Result Body Sit e 77955-WHEJBLZ NAIL, 6 OR MORE 12/22/2023 N/A 08352-KCCV SKIN LESIONS, OVER 4 12/22/2023 N/A Encounters Encounter Location Date Provider Diagnosis [facility] [address] [address] 12/22/2023 Josep Lenz Type 2 diabetes mellitus with diabetic polyneuropathy E11.42 ; Tinea unguium B35.1 ; Other hammer toe(s) (acquired), right foot M20.41 and Other hammer toe(s) (acquired), left foot M20.[address] [facility] [address] 03/21/2024 Josep Lenz Assessments Encounter Date Diagnosis [...] Treatment Pending Test Test Name Order Date 30866-ORNNIDK NAIL, 6 OR MORE 12/22/2023 39998-TMIU SKIN LESIONS, OVER 4 12/22/19 24 Insurance Providers Payer Name Payer Address Payer Phone Subscriber Number Group Number Insured Name Patient Relationship to Insured Coverage Start Date Coverage End Date [facility] [employer] SCO Claims [address] [place] [address] [phone] [id number] Yousif Mcintosh Self - patient is the insured Medical (General) History Medical History History ICD Code Diabetic Epilepsy Gout Stroke Hypercholesterolemia Surgical History Surgery Date(Month/Year)
--- OUTSIDE RECORDS SUMMARY | 2024-07-17 14:30 | XMS_ITS | Clinical Summary ---
Author Organization [facility] Address [address] [place] [address] [address] [place] [address] Care Team Providers Care Dye House Helper Name Role Phone Unavailable Primary Care Provider [...] - 1-dose 75+ series) 2021 COVID-19 Vaccine (3 - 2023-2 5 season) 2023 07/09/2020, 06/11/2020 Influenza Vaccine Completed 01/17/2024, 03/30/2023, 03/22/2006 HIB Vaccines Aged Out No [...]
--- OUTSIDE RECORDS SUMMARY | 2024-07-17 14:30 | XMS_ITS ---
Author Organization [facility] Address [address] [place] [address] Care Team Providers Care Tools Administrator Name Role Phone Endy SMITH, Poonam Primary Care Provider Unavail able Josep Lenz Unavailable [phone] Allergies No Known Allergies REASON FOR VISIT [...] Polyneuropathy due to type 2 diabetes mellitus (942992846) Type 2 diabetes mellitus with diabetic polyneuropathy (E11.42) Active confirmed Problem Acquired hammer toe of right foot (3292579550078337 ) Other hammer toe(s) (acquired), right foot (M20.41) Active confirmed Problem Acquired hammer toe of left foot (3591453463825139 ) Other hammer toe(s) (acquired), left foot (M20.42) Active confirmed Vital Signs Height 6 ft 2 in in 12/22/2023 Weight 210 lbs lbs 12/22/2023 BMI 26.96 kg/m2 12/22/2023 Procedures Procedure Date Ordered Date Performed Result Body Sit e 63714-BYONCJA NAIL, 6 OR MORE 12/22/2023 N/A 82836-TGLW SKIN LESIONS, OVER 4 12/22/2023 N/A Encounters Encounter Location Date Provider Diagnosis [facility] [address] [place] [address] 12/22/2023 Josep Lenz Type 2 diabetes mellitus [...] INSTRUCTIONS.pdf) Pending Test Test Name Order Date 98999-OAKKXRB NAIL, 6 OR MORE 12/22/2023 88166-RCUA SKIN LESIONS, OVER 4 12/22/19 24 Next [...] use of a nail nipper and/or dremel-type beef grinder, to a more viable healthy nail plate or bed tissue 6-10. Silver nitrate used for any petechial bleeding as necessary. Definitive antifungal treatment options have been reviewed and discussed with the patient. The patient chooses, no pharmaceutical tx - 72944 Keratoma Treatment Parring or Cutting o f Benign Hyperkeratotic Lesion(s) (-57) More than 4 Lesions - The Benign hyperkeratotic lesions, as described above were pared, and/or cut utilizing a sterile 15 blade, tissue nippers, and/or dremel - 55428 Progress Notes * Yousif RAINDOB:1945 (79 yo M)Acc No.[id number]:12/22/2023 Progress Notes Patient:?Yousif RAIN Provider:?Josep Lenz DPM :1945???Age:78 Y???Sex:Male Armaan e:12/22/2023 Address:[address] [place] [address] [address] [place], [place] Pcp:Poonam Schumacher MD Subjective: * Chief Complaints: [...] 7.1 * Examination: ???Ophthalmology Referral: ?DIABETES EYE EXAM?Procedure Performed:?No ?Eye Exam not performed:?No reason specified ?Diabetic Retinopathy Screening:?No?Neurological: ?SENSORY:? Neurological exam demonstrates, reduced light touch [...] for office visit today.?ORIENTED:?person, place, and time.?FOOT EXAM:?Lower Extremity Neurological Exam performed:?Yes ?Visual exam of foot performed:?Yes ?Date?12/22/2023 ?Footwear Evaluation?Footwear Evaluation performed:?Yes??? Assessment: * Assessment: 1.?Type 2 diabetes mellitus [...] use of a nail nipper and/or dremel-type beef grinder, to a more viable healthy nail plate or bed tissue 6-10. Silver nitrate used for any petechial bleeding as necessary. Definitive antifungal treatment options have been reviewed and discussed with the patient. The patient chooses, no pharmaceutical tx - 31560.?Keratoma Treatment:?Parring or Cutting of Benign Hyperkeratotic Lesion(s)?(-57) More than 4 Lesions - The Benign hyperkeratotic lesions, as described above were pared, and/or cut utilizing a sterile 15 blade, tissue nippers, and/or dremel - 44398.? * Procedure Codes:?22370 DEBRI DE NAIL, 6 OR MORE, Modifiers: XS 77749 TRIM SKIN LESIONS, OVER 4, Modifiers: XS [...] Lenz DPM Date:?2023 Generated for Tayo kemp/Isaias/Tremayne on:?07/17/2024 02:29 PM EDT History and Physical Notes * HPI (History [...] (-) Charcot collapse /destruction noted at [facility] FOOTWEAR EVALUATION: worn, non-supportiv e, shoe gear properties exacerbate patient's foot/toe deformity [...]
--- OUTSIDE RECORDS SUMMARY | 2024-07-17 14:30 | XMS_ITS | Clinical Summary ---
Author Organization [facility] Address [address] [place] [address] Phone Care Team Providers Care Box Packer Name Role Phone Poonam Hernandez MD Primary Care Provider [phone] Allergies Active Allergy Reactions Criticality Noted Date [...] age to complete this topic Insurance [facility] [place] [id number] [facility] [place] [id number] [address] [place] [address] Care Teams Box Packer Relationship Specialty Start Date End Date Poonam Hernandez MD [address] [place], [place] PCP - General Internal Medicine 04/14/21
--- OUTSIDE RECORDS SUMMARY | 2024-07-17 14:30 | XMS_ITS ---
Author Organization [facility] Address [address] [place] [address] Care Team Providers Care Building Construction Professor Name Role Phone Endy SMITH, Poonam Primary Care Provider Unavail Josep Westbrook Unavailable [phone] REASON FOR VISIT Cancel Encounters Encounter Location Date Provider Diagnosis [facility] [address] [place] [address] 03/21/2024 Josep Lenz Plan Of Treatment No Information Progress Notes * Yousif RAINDOB:1945 (79 yo M)Acc No.[id number]:03/21/2024 Patient:?Yousif RAIN :1945???Age:79 Y???Sex:Male Address:[address] [place] [address], [place], [address] * true * Date:? Generated for Suhasi justo/Isaias/eTransmitting on:?07/17/2024 02:30 PM EDT
== END 2024-07-17 13:57 | disposition home or self-care (01) ==
LOC: HO.ACS 11:56
PROVIDERS: PCP Internal Medicine; Visit Provider Internal Medicine Medical Oncology
DX: Z79.01 Long term (current) use of anticoagulants (principal)

== ENCOUNTER → 2024-07-17 11:56 | Outpatient (BNVA) | payer OTHER, SELFPAY | PROVIDERS: PCP Internal Medicine; Visit Provider Internal Medicine Medical Oncology | DX: I48.0 Paroxysmal atrial fibrillation (principal); Z86.73 Personal history of transient ischemic attack (TIA), and cerebral infarction without residual deficits; Z79.01 Long term (current) use of anticoagulants; Z51.81 Encounter for therapeutic drug level monitoring | CPT/HCPCS: 99212 ==

== ENCOUNTER 2024-07-22 09:38 | Day surgery (SDC) | payer OTHER, SELFPAY ==
--- OUTSIDE RECORDS SUMMARY | 2024-06-11 07:33 | XMS_ITS | Data Portability ---
Author Organization [facility], Main Office Address [address], [address] [place] [address] Care Team Providers Care Compensation Advisor Name Role Phone [place] - 2ND [...] and Address Organization Details Recorded Time Gout 66068694 Active 2022 Mai Crespo NP [address], [place], [address], [facility] 3 14:12:09 Gastroesoph ageal reflux disease 146511378 Active 2022 Mai Crespo NP [address], [place], [address], 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 Active 2022 Shamar Grijalva MD [address], [address], [place], [address], [facility] 3 08:54:24 Unsteady gait Active 2017 Shamar Grijalva MD [address], [place], [address], [facility] 8 10:50:39 History of cerebrovasc ular accident 088494469 Active 2017 Shamar Grijalva MD [address], [place], [address], [facility] 8 10:50:47 Atrial fibrillatio n 92200362 Active 2017 Shamar Grijalva MD [address], [place], [address], [facility] 8 10:50:53 Diabetes mellitus 94666372 Active 2017 Shamar Grijalva MD [address], [address], [place], [address], [facility] 8 10:50:58 Systolic heart failure 412168938 Active 2017 Shamar Grijalva MD [address], [address], [place], [address], [facility] 8 10:51:10 Essential hypertensio n 31026334 Active 2017 Shamar Grijalva MD [address], [address], [place], [address], [facility] 8 10:51:17 Hypopituita rism 88802149 Active 2017 Shamar Grijalva MD [address], [place], [address], [facility] 8 10:51:44 Seizure disorder 650793488 Active 2017 Shamar Grijalva MD [address], [address], [place], [address], [facility] 8 10:53:04 Depressive disorder 07326208 Active 2017 Shamar Grijalva MD [address], [address], [place], [address], [facility] 8 10:53:11 Benign prostatic hyperplasia without outflow obstruction 638412473 Active 2017 Shamar Grijalva MD [address], [address], [place], [address], [facility] 8 11:00:59 Problem Notes None recorded. Medical Equipment None Reported. Allergies No known drug allergies Medications Not known to be on any medication Vitals Date Recorded Body weight Heart rate Respiratory rate Body temperature Oxygen saturation Oxygen saturation in Arterial blood by Pulse oximetry Systolic blood pressure Diastolic blood pressure Provider Name and Address Organization Details Last Updated DateTime 3 802343. 25 g 79 /min 18 /min 98.1 [degF] 95 % 95 % 123 mm[Hg] 80 mm[Hg] Mai Crespo NP [address], [address], [place], [address] , [facility] 3 13:51:28 Date Recorded Body weight Heart rate Respiratory rate Body temperature Oxygen saturation Oxygen saturation in Arterial blood by Pulse oximetry Systolic blood pressure Diastolic blood pressure Provider Name and Address Organization Details Last Updated DateTime 3 384548. 25 g 80 /min 18 /min 98.5 [degF] 97 % 97 % 140 mm[Hg] 84 mm[Hg] Mai Crespo NP [address], [address], [place], [address], [facility] 3 15:02:42 Date Recorded Body weight Heart rate Respiratory rate Body temperature Oxygen saturation Oxygen saturation in Arterial blood by Pulse oximetry Systolic blood pressure Diastolic blood pressure Provider Name and Address Organization Details Last Updated DateTime 3 054806. 25 g 85 /min 18 /min 98.6 [degF] 97 % 97 % 134 mm[Hg] 84 mm[Hg] Mai Crespo NP [address], [address], [place], [address], [facility] 3 14:59:33 Date Recorded Body weight Heart rate Respiratory rate Body temperature Oxygen saturation Oxygen saturation in Arterial blood by Pulse oximetry Systolic blood pressure Diastolic blood pressure Provider Name and Address Organization Details Last Updated DateTime 3 805114. 25 g 77 /min 18 /min 98.3 [degF] 96 % 96 % 138 mm[Hg] 72 mm[Hg] Mai Crespo NP [address], [address], [place], [address], [facility] 3 09:15:29 Date Recorded Systolic blood pressure Diastolic blood pressure Provider Name and Address Organization Details Last Updated DateTime 02/22/2023 138 mm[Hg] 79 mm[Hg] Shamar Grijalva MD [address], [address], [place], [address], [facility] 02/22/2023 08:37:55 Social History Question Answer Notes LastModified by Organizat ion Details LastModified Time Tobacco Smoking Status Never Smoker Shamar Grijalva MD [address], [address], [place], [address], [facility] 04/24/2017 11:08:45 Do You Have An Advance Directive? Yes Full Code Information not available 04/24/2017 What Is Your Level Of Alcohol Consumption? None Information not available 04/24/2017 How Much Tobacco Do You Chew? None Information not available 04/24/2017 What Is Your Code Status? Full Code Information not available 02/15/2023 Do You Have A Medical Power Of Assembler Fitter? No Information not available 04/24/2017 What Was [...] PF 03/30/2023 completed Sharon camilo [place] - [facility] 06/15/2023 12:40:58 Past Encounters Encounter ID Performer Location Encounter Start Date Encounter Closed Date Diagnosis/Indication Diagnosis SNOMED-CT Code Diagnosis ICD10 Code Diagnosis Note [id number] Shamar Grijalva MD [facility] [address] 04/24/2017 10:46:11 05/03/2017 13:22:45 Unsteady gait 063390333 R26.81 see HPIgait instabilit y and generalize d weakness admit for continued care. 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 History of cerebrovascular accident 882742151 Z86.73 see above Atrial fibrillation 4943 6004 I48.0 maintained on coumadinmo nitor and titrate dosemetopr olol for rate control Diabetes mellitus 038644 09 E11.9 metformin 500 mg qdmonitor blood gluocse Systolic h eart failure 824353871 I50.22 carrying dxnot currently on diureticmo nitor fluid status and respirator y function Essential hypertension 51728065 I10 norvasc discontinu ed in hospital maintained onmetoprol ol 12.5 mg qdmonitor bp and labs Hypopituitarism 80806364 E23.0 hx of added to PMHcortef 10 mg qam 5 mg qpm Seizure disorder 2990486 02 G40.89 keppra 750 mg bidmonitor for activity Depressive disorder 3548 9007 F32.89 prozac 20 mg qdmonitor mood Benign pro static hyperplasia without outflow obstruction 167753097 N40.0 [place]omax 0[place]4 [place] [id number] [facility] [facility] [address] [address] 04/26/2017 11:47:39 05/03/2017 13:25:43 Low back pain 244522720 M54.5 Secondary to mechanical fallCurren tly on oxycodone 5 mg Q6h prn-will increase to 5-10 mg Q4h prn and monitorPat ient agrees to work with therapy if pain can be better controlled [id number] Shamar Grijalva MD [facility] [address] 05/01/2017 10:19:25 05/03/2017 13:36:42 Unsteady gait 732560384 R26.81 improved with PT OT Atrial fibrillation 4943 6004 I48.0 maintained on coumadinmo nitor and titrate doserate controlled on metorprolo lremains in sinus rhythm Diabetes mellitus 866406 09 E11.9 metformin 500 mg qdcontinue Essential hypertension 97102331 I10 norvasc discontinu ed in hospital maintained onmetoprol ol 12.5 mg qdmonitor bp and labs Hypopituitarism 27446571 E23.0 hx of added to PMHcortef 10 mg qam 5 mg qpm Seizure disorder 9951810 02 G40.89 keppra 750 mg bidcontinu e Depressive disorder 3548 9007 F32.89 prozac 20 mg qdcontinue Benign pro static hyperplasia without outflow obstruction 655313319 N40.0 flomax 0.4 mg qdcontinue [id number] Mai Crespo NP [facility] [address] [place] [address] 02/15/2023 13:50:23 02/21/2023 13:17:35 History of cerebrovascular accident 867789683 Z86.73 hx of cva with right sided weaknessas pirin 81 mg po dailyon ac see belownow non weight bearing to left sidemonito r Atrial fibrillation 4943 6004 I48.0 maintained on coumadinwa s on 2.5mg alt with 5 mg every other daymonitor and titrate dosemetopr olol for rate control Diabetes mellitus 431698 09 E11.9 metformin 500 mg qdmonitor blood glucose Systolic h eart failure 583290964 I50.22 carrying dxnot currently on diureticmo nitor fluid status and respirator y function Essential hypertension 22245361 I10 amlodipine 2.5 mg po dailymetop rolol succ 12.5 mg qdmonitor bp and labs Hypopituitarism 47807702 E23.0 hx of added to PMHcortef 10 mg qam Seizure disorder 3453775 02 G40.89 keppra 750 mg bidmonitor for activity Depressive disorder 3548 9007 F32.89 prozac 20 mg qdmirtazap ine 15 mg po dailymonit or mood Benign pro static hyperplasia without outflow obstruction 835097721 N40.0 flomax 0.4 mg qdmyrbetri q 25 mg po dailymonit or for sx Hyperlipidemia 78551809 E78.5 atorvastat in 40 mg po bedtimemon itor Gout 49091683 M10.9 allopurino l 100 mg po dailymonit or Gastroesop hageal reflux disease 323122480 K21.9 famotidine 20 mg po dailymonit or Vitamin deficiency 34607 002 E56.9 magnesium oxide 250mg tidferrous sulfate 325 mg po dailymonit or Closed fra cture of greater trochanter of left femur 3250759675 8230159 S72.115A non surgical per [facility] weight bearing to left sideokay to use kimberly lift if needed with careful transfer prnair loss bariatric mattress due to non weight bearing status of left and right weak cva11/1add lidocaine patch to left hip topically dailywill need fu with orthooxyco done 5 mg po q 6 hours prn paintyl prnPT OTon ac coumadin Impaired cognition 66766 6002 R41.89 scores 13/30 for moderate cognitive impairment invoke today, with son as decision makermonit or [id number] Shamar Grijalva MD [facility] [address] [address] 02/22/2023 08:30:44 02/24/2023 15:15:57 Closed fracture of greater trochanter of left femur 6967651452 0322275 S72.115A see HPIleft greater trochanter ic femur fx. Eval by ortho with no surgical interventi on indicated at that time to remains NWB till cleared by orthoPT OT eval and treatmonit or fall risk and pain controlupd ate ortho with concerns History of cerebrovascular accident 819400668 Z86.73 baseline right sided weakness post prior cvaPT TO Eval and treat Atrial fibrillation 4033 6004 I48.0 coumadin monitor and titrate following INRmetopro lol 12.5 mg qdmonitor for rate control Diabetes mellitus 525814 09 E11.9 metformin 500 mg qdmonitor blood glucose and need to adjust Systolic h eart failure 013663462 I50.22 carrying dxcurrentl y not on diureticmo nitor fluid status and respirator y function Essential hypertension 38873082 I10 norvasc 2.5 mg po qdmetoprol ol 12.5 mg qdmonitor bp and labs Seizure disorder 9545619 02 G40.89 keppra 750 mg bidmonitor for activity Benign pro static hyperplasia without outflow obstruction 736408022 N40.0 flomax 0.4 mg qdmyrbetri q 25 mg po qdmonitor for sx relief Hyperlipidemia 48772480 E78.2 lipitor 40 mg qdcontinue d Gastroesop hageal reflux disease 086318112 K21.9 famotidine 20 mg po qdmonitor for sx relief Impaired cognition 95323 6002 R41.89 baseline cognitive impairment unable to make own decisionsi nvoke HCPcontinu e supportive caremonito r need for increased services in community Myelolipom a of adrenal gland 538558964 D35.01 see HPIInciden filippo finding of probable myelolipom a right adrenal lesionrepe at CT in 3-6 monthsmoni tor need for biospycoul d refer to IR [id number] Mai Crespo NP [facility] [address] [address] 03/02/2023 14:58:01 03/07/2023 07:54:51 Closed fracture of greater trochanter of left femur 3033687770 2339214 S72.115A non surgical per [facility] weight bearing [...] OTon ac coumadin History of cerebrovascular accident 400942595 Z86.73 hx of cva with right sided weaknessas pirin 81 mg po dailyon ac see belownow non weight bearing to left sidemonito r Atrial fibrillation 4943 6004 I48.0 maintained on coumadinmo nitor inr/pt on Mondays and prncont on regular therapy 2.5mg alt with 5 mg every other daymonitor and titrate dosemetopr olol for rate control Diabetes mellitus 127213 09 E11.9 metformin 500 mg qdmonitor blood glucose Systolic h eart failure 025952633 I50.22 carrying dxnot currently on diureticmo nitor fluid status and respirator y function Essential hypertension 17263761 I10 amlodipine 2.5 mg po dailymetop rolol succ 12.5 mg qdmonitor bp and labs Hypopituitarism 48647024 E23.0 hx of added to PMHcortef 10 mg qam Seizure disorder 3388186 02 G40.89 keppra 750 mg bidmonitor for activity Depressive disorder 3548 9007 F32.89 prozac 20 mg qdmirtazap ine 15 mg po dailymonit or mood Benign pro static hyperplasia without outflow obstruction 477238639 N40.0 flomax 0.4 mg qdmyrbetri q 25 mg po dailyconsi arik dc myrbetriq if retention occursmoni tor for sx Impaired cognition 72712 6002 R41.89 scores 13/30 for moderate cognitive impairment invoked son as decision makermonit or [id number] Mai Crespo NP [facility] [address] [address] 03/10/2023 14:58:06 03/15/2023 09:02:40 Closed fracture of greater trochanter of left femur 7745120085 4022381 S72.115A non surgical per [facility] weight bearing [...] OTon ac coumadin History of cerebrovascular accident 912150894 Z86.73 hx of cva with right sided [...] dosemetopr olol for rate control Diabetes mellitus 433598 09 E11.9 metformin 500 mg qdmonitor blood glucose Systolic h eart failure 673365944 I50.22 carrying dxnot currently on diureticmo nitor fluid status and respirator y function Essential hypertension 40327722 I10 amlodipine 2.5 mg po dailymetop rolol succ 12.5 mg qdmonitor bp and labs Seizure disorder 3701887 02 G40.89 keppra 750 mg bidmonitor for activity Depressive disorder 3548 9007 F32.89 prozac 20 mg qdmirtazap ine 15 mg po dailymonit or mood Benign pro static hyperplasia without outflow obstruction 807626207 N40.0 flomax 0.4 mg qdmyrbetri q 25 mg po dailyconsi arik dc myrbetriq if retention occursmoni tor for sx Impaired cognition 03485 6002 R41.89 scores 13/30 for moderate cognitive impairment invoked son as decision makermonit or [id number] Mai Crespo NP [facility] [address] [address] 03/15/2023 09:03:01 03/20/2023 10:39:58 Closed fracture of greater trochanter of left femur 4707517566 5097430 S72.115A non surgical per [facility] weight bearing [...] at baselinefu with pcp outpt Diabetes mellitus 272111 09 E11.9 metformin 500 mg qdmonitor blood glucose History of cerebrovascular accident 437133702 Z86.73 hx of cva with right sided weaknessas pirin 81 mg po dailyon ac see below with coumadinno n weight bearing to left side, however pt using left leg at timesmonit or Atrial fibrillation 4943 6005 I48.0 maintained on coumadinco nt on regular therapy 2.5mg alt with 5 mg every other daymonitor and titrate dose per outpt pcpcont metoprolol for rate controllev els here above Systolic h eart failure 176996931 I50.22 carrying dxnot currently on diureticmo nitor fluid status and respirator y function outpt Essential hypertension 00318679 I10 stable here on:amlodip ine 2.5 mg po dailymetop rolol succ 12.5 mg qdmonitor outpt with pcp Seizure disorder 0625891 02 G40.89 keppra 750 mg bidmonitor for activity outpt Depressive disorder 3548 9007 F32.89 prozac 20 mg qdmirtazap ine 15 mg po dailymonit or mood outpt with pcppsych outpt prn Benign pro static hyperplasia without outflow obstruction 156867584 N40.0 flomax 0.4 mg qdmyrbetri q 25 mg po dailyconsi arik dc myrbetriq if retention occursmoni tor for sx outpt with pcp Impaired cognition 45138 6002 R41.89 scores 13/30 for moderate cognitive impairment on admissioni nvoked son as decision makermonit or outpt with [facility] Health Concerns Section Related Observation LastModified by Organization Detai ls LastModified Time None Recorded Concern Status LastModified by Organization Details LastModified Time None Recorded Advance Directives Directive Y: Full code Payers Encounter Date Sequence Insurance Name Policy Number Policy Sims Covered Member ID Sims Member ID Guarantor Name 02/15/2023 1 [facility] CARE [employer]IANCE - DOS ON OR AFTER 2022 - MEDICARE [place]AGE [place]/ADV ANTAGE - PPO) Yousif Mcintosh [id number] Suseunice Velazquezgos 02/15/2023 2 [place] [facility] Suseunice Nailss [id number] Suseunice Mcintosh 02/22/2023 1 [facility] CARE [employer] - DOS ON OR AFTER 2022 - [place]V [place] - [place]PO) Susano Mcintosh [id number] Susano Mcintosh 02/22/2023 2 [place] [facility] Suseunice Mcintosh [id number] Suseunice Mcintosh 03/02/2023 1 [facility] CARE [employer] - DOS ON OR AFTER 2022 - [place]V ANT[place] - [place]PO) Suseunice Velazquezgos [id number] Suseunice Mcintosh 03/02/2023 2 [place] [facility] Yousif Nailss [id number] Yousif Velazquezgos 03/10/2023 1 [facility] - DOS ON OR AFTER 2022 - [place]AC[place]/ADV ANTAGE - PPO) Yousif Nailss [id number] Yousif Velazquezgos 03/10/2023 2 [place] [facility] Yousif Velazquezgos [id number] Yousif Velazquezgos 03/15/2023 1 [facility] - DOS ON OR AFTER 2022 - [place]AC[place]/ADV ANTAGE - PPO) Yousif Velazquezgos [id number] Yousif Mcintosh 03/15/2023 2 [place] [facility] Yousif Nailss [id number] Yousif Mcintosh Notes Date Note Type Note [...] lateral ventricle. On exam, he is mostly Mongolian speaking and park interpreter used. He states the oxycodone helps with [...] to sign document Mai Crespo NP [address], [address], [place], [address], [facility] 02/17/2023 16:46:18 02/23/20 23 text/htm l [...] finding of probable myelolipoma right adrenal lesion Mongolian speaking park interpreter present PMH significant forgerdimpaired cognitionbphdepressionseizure dxhypopituitarismchfdma fibhx CVAhtngait instability admit to facility for continued care and therapy Shamar Grijalva MD [address], [address], [place], [address], [facility] 02/22/2023 09:05:01 03/02/20 23 text/htm l [...] for now. On exam, he is mostly Mongolian speaking and park interpreter used. He is transferring to toilet with help today. He reports the oxycodone and lidocaine patch are helping with the pain. MOLST: awaiting son to sign document Mai Crespo NP [address], [address], [place], [address], [facility] 03/02/2023 15:15:55 03/10/20 23 text/htm l [...] and wnl. On exam, he is mostly Mongolian speaking and park interpreter used. He denies any concerns today. He is motoring around in his wheelchair today. Pain controlled. MOLST: awaiting son to sign document Mai Crespo, XIAO [address], [address], [place], [address], [employer] 03/10/2023 15:06:40 03/15/20 23 text/htm l 72 yo male seen seen for a discharge visit today. He initally presented to [facility] on 02/14 with hx of left MCA [...] mild dilation of left lateral ventricle. At [facility] [place] Yousif continues to do well working with [...] pain control. On exam, he is mostly Mongolian speaking and park interpreter used. He denies any concerns today and states his pain is controlled. He is excited to go home and [facility] is supposed to pick him up. MOLST: awaiting son to sign document- still not addressed Mai Crespo, XIAO [address], [address], [place], [address], [facility] [employer] 03/15/2023 09:47:09
--- OUTSIDE RECORDS SUMMARY | 2024-06-11 07:33 | XMS_ITS ---
Author Organization [facility] Address [address] [place] [address] Care Team Providers Care Clinical Services Manager Name Role Phone Endy SMITH, Poonam Primary Care Provider Unavail Josep Westbrook Unavailable [phone] Encounters Encounter Location Date Provider Diagnosis [address] [address] 03/22/2024 Josep Lenz Plan Of Treatment No Information Progress Notes * Yousif RAINDOB:1945 (79 yo M)Acc No.[id number]:03/22/2024 Progress Note Patient:Yousif BENITO Provider:?Josep Lenz DPM :1945???Age:79 Y???Sex:Male Armaan e:03/22/2024 Address:[address] [place], [place] [id number] Pcp:Poonam Schumacher MD Subjective: * Chief Complaints: [...] Lenz DPM Date:?2023 Generated for Tayo kemp/Isaias/Julitoransmitting on:?06/11/2024 07:33 AM EST
--- OUTSIDE RECORDS SUMMARY | 2024-06-11 07:33 | XMS_ITS | Clinical Summary ---
Author Organization [facility] Address [address] [place] [address] Phone Care Team Providers Care Forest Aide Name Role Phone Poonam Hernandez MD Primary Care Provider [phone] Allergies Active Allergy Reactions Criticality Noted Date [...] patient's age to complete this topic Insurance [facility] [place] [id number] [facility] [place] [id number] [address] [place] [address] Care Teams Forest Aide Relationship Specialty Start Date End Date Poonam Hernandez MD [address] [place], [place] PCP - General Internal Medicine 04/14/21
--- OUTSIDE RECORDS SUMMARY | 2024-06-11 07:33 | XMS_ITS | Clinical Summary ---
Author Organization [employer] Address [address] [place] [address] [address] [place] [address] Care Team Providers Care Wet Wash Assembler Name Role Phone Unavailable Primary Care Provider [...]
--- OUTSIDE RECORDS SUMMARY | 2024-06-11 07:33 | XMS_ITS | Patient Health Record ---
Author Organization [facility] Address [address] [place] [address] Care Team Providers Care Tube Lancer Name Role Phone Endy SMITH, Poonam Primary Care Provider Unavail able Josep Lenz Unavailable [phone] Allergies No Known Allergies Results Component Value [...] Problem Acquired hammer toe of right foot (2811586895024255 ) Other hammer toe(s) (acquired), right foot (M20.41) Active confirmed Problem Acquired hammer toe of left foot (4182934573879298 ) Other hammer toe(s) (acquired), left foot (M20.42) Active confirmed Problem Polyneuropathy due to type 2 diabetes mellitus (939852609) Type 2 diabetes mellitus with diabetic polyneuropathy (E11.42) Active confirmed Vital Signs Height 6 ft 2 in in 12/22/2023 Weight 210 lbs lbs 12/22/2023 BMI 26.96 kg/m2 12/22/2023 Procedures Procedure Date Ordered Date Performed Result Body Sit e 16162-EWKWPUG NAIL, 6 OR MORE 12/22/2023 N/A 20709-MEYR SKIN LESIONS, OVER 4 12/22/2023 N/A Encounters Encounter Location Date Provider Diagnosis [facility] [address] [address] 12/22/2023 Josep Lenz Type 2 diabetes mellitus with diabetic polyneuropathy E11.42 ; Tinea unguium B35.1 ; Other hammer toe(s) (acquired), right foot M20.41 and Other hammer toe(s) (acquired), left foot M20.[address] [facility] [address] 03/21/2024 Josep Lenz Assessments Encounter Date Diagnosis [...] Treatment Pending Test Test Name Order Date 74004-ALHQXBR NAIL, 6 OR MORE 12/22/2023 84783-KZES SKIN LESIONS, OVER 4 12/22/19 24 Insurance Providers Payer Name Payer Address Payer Phone Subscriber Number Group Number Insured Name Patient Relationship to Insured Coverage Start Date Coverage End Date [facility] [employer] S[employer] Claims [address] [place] [address] [phone] [id number] Yousif Mcintosh Self - patient is the insured Medical (General) History Medical History History ICD Code Diabetic Epilepsy Gout Stroke Hypercholesterolemia Surgical History Surgery Date(Month/Year)
--- OUTSIDE RECORDS SUMMARY | 2024-06-11 07:33 | XMS_ITS ---
Author Organization [facility] Address [address] [place] [address] Care Team Providers Care Store Detective Name Role Phone Endy SMITH, Poonam Primary Care Provider Unavail Josep Westbrook Unavailable [phone] REASON FOR VISIT Cancel Encounters Encounter Location Date Provider Diagnosis [facility] [address] [place] [address] 03/21/2024 Josep Lenz Plan Of Treatment No Information Progress Notes * Yousif RAINDOB:1945 (79 yo M)Acc No.[id number]:03/21/2024 Patient:?Yousif RAIN :1945???Age:79 Y???Sex:Male Address:[address] [place] [address], [place], [address] * true * Date:? Generated for Suhasi justo/Isaias/eTransmitting on:?06/11/2024 07:33 AM EST
--- OUTSIDE RECORDS SUMMARY | 2024-06-11 07:33 | XMS_ITS ---
Author Organization [facility] Address [address] [facility] [address] Care Team Providers Care Child Support Investigator Name Role Phone Endy SMITH, Poonam Primary Care Provider Unavail able Josep Lenz Unavailable [phone] Allergies No Known Allergies REASON FOR VISIT [...] Polyneuropathy due to type 2 diabetes mellitus (606473945) Type 2 diabetes mellitus with diabetic polyneuropathy (E11.42) Active confirmed Problem Acquired hammer toe of right foot (5848014232992294 ) Other hammer toe(s) (acquired), right foot (M20.41) Active confirmed Problem Acquired hammer toe of left foot (4558006941458175 ) Other hammer toe(s) (acquired), left foot (M20.42) Active confirmed Vital Signs Height 6 ft 2 in in 12/22/2023 Weight 210 lbs lbs 12/22/2023 BMI 26.96 kg/m2 12/22/2023 Procedures Procedure Date Ordered Date Performed Result Body Sit e 40216-IWVDSEB NAIL, 6 OR MORE 12/22/2023 N/A 90933-ALSK SKIN LESIONS, OVER 4 12/22/2023 N/A Encounters Encounter Location Date Provider Diagnosis [facility] [address] [place] [address] 12/22/2023 Josep Lenz Type 2 diabetes mellitus [...] INSTRUCTIONS.pdf) Pending Test Test Name Order Date 13662-XQUKUNV NAIL, 6 OR MORE 12/22/2023 77093-XJIY SKIN LESIONS, OVER 4 12/22/19 24 Next [...] use of a nail nipper and/or dremel-type glass grinder, to a more viable healthy nail plate or bed tissue 6-10. Silver nitrate used for any petechial bleeding as necessary. Definitive antifungal treatment options have been reviewed and discussed with the patient. The patient chooses, no pharmaceutical tx - [address]20 Keratoma Treatment Parring or Cutting o f Benign Hyperkeratotic Lesion(s) (-57) More than 4 Lesions - The Benign hyperkeratotic lesions, as described above were pared, and/or cut utilizing a sterile 15 blade, tissue nippers, and/or dremel - 28518 Progress Notes * Yousif RAINDOB:1945 (79 yo M)Acc No.[id number]:12/22/2023 Progress Notes Patient:?Yousif RAIN Provider:?Josep Lenz DPM :1945???Age:78 Y???Sex:Male Armaan e:12/22/2023 Address:[address] [place] [address] [address] [facility], [place] Pcp:Poonam Schumacher MD Subjective: * Chief Complaints: [...] use of a nail nipper and/or dremel-type glass grinder, to a more viable healthy nail plate or bed tissue 6-10. Silver nitrate used for any petechial bleeding as necessary. Definitive antifungal treatment options have been reviewed and discussed with the patient. The patient chooses, no pharmaceutical tx - 26067.?Keratoma Treatment:?Parring or Cutting of Benign Hyperkeratotic Lesion(s)?(-57) More than 4 Lesions - The Benign hyperkeratotic lesions, as described above were pared, and/or cut utilizing a sterile 15 blade, tissue nippers, and/or dremel - 87890.? * Procedure Codes:?81648 DEBRI DE NAIL, 6 OR MORE, Modifiers: XS 21368 TRIM SKIN LESIONS, OVER 4, Modifiers: XS [...] Lenz DPM Date:?2023 Generated for Tayo kemp/Isaias/Tremayne on:?06/11/2024 07:32 AM EST History and Physical Notes * HPI [...]
[2024-07-18 07:50] VITALS: BMI 28.6
--- NOTE | 2024-07-19 11:51 | P.CONAN_ITS ---
Documented by User: Julieta Jamison NP 07/19/24 11:56 HPI - Anesthesia Eval Consult details Narrative: 79yo M for Laser Ablation Prostate w/Green Light, Prostate Needle Biopsy Cardiac optimized. Follows [facility] [place] [place] Cardiology for afib. Stable at 05/2024 office visit Coumadin, lovenox bridge Anesthesia Pre-Procedure Meds Is the patient on any of the following meds?: SGLT2 Inhib PMFSH Active Problems Active Problems: All Active Problems Gout (Acute) Incomplete bladder emptying (Acute) Urinary retention (Acute) Prostate mass (Acute) Elevated PSA (Acute) Hemiparesis following cerebrovascular accident (CVA) (Acute) History of fall (Acute) Lumbar pain (Acute) Hand weakness (Acute) Diabetes mellitus (Acute) Hospital discharge follow-up (Acute) Urinary incontinence (Acute) Generalized weakness (Acute) Dysphagia (Acute) Hematuria (Acute) Asymmetric septal hypertrophy (Acute) Precordial chest pain (Acute) Urge urinary incontinence (Acute) Onychomycosis (Acute) Incontinence (Acute) Skin lesion (Acute) CHF (congestive heart failure) (Acute) Atrial fibrillation (Acute) Magnesium deficiency (Acute) Mild major depression (Acute) Murmur (Acute) Dyspnea on exertion (Acute) Hospital discharge follow-up (Acute) Hypomagnesemia (Acute) Varicose veins of right lower extremity with inflammation (Acute) CKD (chronic kidney disease) (Acute) Physical exam (Acute) Cellulitis (Acute) Iron deficiency anemia (Acute) Psoriasis (Acute) Stroke (Acute) Seizures (Acute) Dyslipidemia (Acute) BPH (benign prostatic hyperplasia) (Acute) Hypovitaminosis D (Acute) Gout (Acute) Abnormal laboratory test (Acute) Hypertension (Acute) Current use of anticoagulant therapy (Acute) Past Medical History Medical History (Updated 07/22/24 @ 10:20 by Rachna Alcaraz, RN) Renal insufficiency CKD (chronic kidney disease) Physical exam Iron deficiency anemia Psoriasis Stroke Seizures Dyslipidemia BPH (benign prostatic hyperplasia) Hypovitaminosis D Gout Abnormal laboratory test Hypertension Diabetes Family History Family History Mother Heart problem Father Bone cancer Surgical History Surgical History History of open reduction and internal fixation (ORIF) procedure History of kidney stones Social History Social History (Reviewed 06/11/24 @ 12:34 by Florinda Miranda [facility] Household Members: None 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 If so, by whom?: No Are you DNR?: No Advance Directives: Yes Advance Directives Information Provided: Yes Advance Directives on File: Yes Advance Directives Date on File: 12/20/11 service: No Current occupational status: disabled Cognitive needs: Yes (wheelchair) Hearing needs: No Vision needs: No Meds Allergies Allergy/AdvReac Type Severity Reaction Status Date / Time No Known Allergies Allergy Verified 07/22/24 10:21 Home Medications ?Medication ?Instructions ?Recorded ?Confirmed ?Last Taken ?Type warfarin 2.5 mg tablet 2.5 mg PO SUTUWETHSA 11/01/23 07/22/24 07/14/24 History warfarin 5 mg tablet 5 mg PO MOFR 11/01/23 07/22/24 07/15/24 History Exam Height,Weight and Vital Signs: Height 6 ft 2 in Weight 101.151 kg Pertinent Lab Results Pertinent Lab Results: Laboratory Tests 03/27/24 06:32 WBC 8.2 Hgb 12.6 L Hct 38.5 L Plt Count 156 L Sodium 141 Potassium 5.0 Chloride 111 H Carbon Dioxide 23 BUN 26 H Creatinine 1.56 H Narrative Narrative: EKG 12/2023 Vent. Rate : 098 BPM Atrial Rate : 000 BPM P-R Int : 000 ms QRS Dur : 078 ms QT Int : 372 ms P-R-T Axes : 000 -32 012 degrees QTc Int : 474 ms Atrial fibrillation Left axis deviation Cannot rule out Anterior infarct , age undetermined Abnormal ECG When compared with ECG of 11-FEB-2023 22:20, No significant change was found ECHO 2022 Conclusions: - The left ventricular systolic function is normal. The calculated ejection fraction is 66% by biplane method. - There is severe septal and severe basal asymmetric hypertrophy. - There is mildly decreased right ventricular systolic function. - No obvious valvular pathology seen on this study. - There is mild dilatation of the ascending aorta measuring 4.00 cm. Holter 2022 1. Patient was monitored for total period of 2 days and 22 hours 2. Baseline rhythm is atrial fibrillation with average heart of 71 beats per minute with good rate control 3. Occasional PVCs noted 4. No significant pauses noted 5. No patient reported events Assessment and Plan Assessment Anesthesia Assessment: Chart Reviewed Documented by User: Hero Gardner MD 07/22/24 11:54 PMFSH Past Medical History Medical History (Updated 07/22/24 @ 10:20 by Rachna Alcaraz RN) Renal insufficiency CKD (chronic kidney disease) Physical exam Iron deficiency anemia Psoriasis Stroke Seizures Dyslipidemia BPH (benign prostatic hyperplasia) Hypovitaminosis D Gout Abnormal laboratory test Hypertension Diabetes Family History Family History Mother Heart problem Father Bone cancer Family history of problems with anesthesia: No Surgical History Surgical History History of open reduction and internal fixation (ORIF) procedure History of kidney stones History of Problems with Anesthesia: No Social History Social History Household Members: None 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 If so, by whom?: No Are you DNR?: No Advance Directives: Yes Advance Directives Information Provided: Yes Advance Directives on File: Yes Advance Directives Date on File: 12/20/11 service: No Current occupational status: disabled Cognitive needs: Yes (wheelchair) Hearing needs: No Vision needs: No Meds Allergies Allergy/AdvReac Type Severity Reaction Status Date / Time No Known Allergies Allergy Verified 07/22/24 10:21 Home Medications ?Medication ?Instructions ?Recorded ?Confirmed ?Last Taken ?Type warfarin 2.5 mg tablet 2.5 mg PO SUTUWETHSA 11/01/23 07/22/24 07/14/24 History warfarin 5 mg tablet 5 mg PO MOFR 11/01/23 07/22/24 07/15/24 History Assessment and Plan Assessment Anesthesia Assessment: Anesthesia Plan Discussed Final Anesthetic Review Family History of Problems with Anesthesia: No History of Problems with Anesthesia: No NPO: Yes ASA Class: III Final Preanesthetic Review: No Changes in Pt Med Stat, Meds/Allgs Chart Reviewed, Consent Obtained/Reviewed and Anes Risks/Benef Reviewed Patient Risk: Intermediate Procedure Risk: Low Anesthetic Plan Anesthetic Plan: GA Disposition: Standard PACU
[2024-07-22] VITALS (7 sets, daily range): BP systolic 107–132; BP diastolic 67–88; PULSE 66–79; RESP 14–18; TEMP 36.1–36.7; O2SAT 96–98; BMI 28.5
[2024-07-22 10:19] LABS: INTERNATIONAL NORM RATIO 1.2 (0.9-1.1)
[2024-07-22 10:22] LABS: Glucose, Whole Blood 93 mg/dL (60-115)
[2024-07-22] MEDS: Lactated Ringers 1,000 ML 100 ML IVCONT (10:56)
--- NOTE | 2024-07-22 13:59 | MHC.SHP ---
Pre-Procedural Eval Section A - 24 Hr Update-Section A only Date of Service: 07/22/24 The patient is an INPATIENT: No Changes since office visit: No Cold of Flu in the past 2 weeks, No New Medical Problems, No Changes in Medication and No Patient answered all questions The patient has been examined within 24 hours of the surgical procedure. The History & Physical has been completed within 30 days and I have reviewed it.: Yes Section B - Complete if H&P > 30 days Chief Complaint: Elevated prostate specific antigen [PSA],hyperplas Details of Present Illness: Transrectal biopsy and greenlight laser prostate Relevant Family History (Specify if Yes): No Relevant Social History: None Present Medications: see Short Stay Collaborative assessment Medical History: Significant History History of Previous Operations: No relevant previous surgery Allergies: Allergies Allergy/AdvReac Type Severity Reaction Status Date / Time No Known Allergies Allergy Verified 07/22/24 10:21 Review of Systems Sugical H&P ROS: Negative: Constitution, Cardiovascular, Respiratory, Neurological, Psychiatric, Hem-Onc, Allergic/Immunologic, Gastrointestinal, Genitourinary, Musculoskeletal, Integumentary, Endocrine and Eyes/Ears/Nose/Throat Exam Surgical H&P Exam: Normal: HEENT, Normal: Heart, Normal: Lungs, Normal: Extremities, Normal: Abdomen, Normal: Skin and Normal: Neurological Plan Diagnosis/Plan: Unchanged I have reviewed the history and physical and performed a pertinent physical examination on my patient. No changes have occurred unless specified. Time Spent With Patient Time: Total time managing care of this patient today ____ minutes.
--- NOTE | 2024-07-22 14:54 | P.OP_ITS ---
Operative Note Operative Note Date of Service: 07/22/24 Narrative: PreOperative Diagnosis: Bladder outlet obstruction - related PSA Post Operative Diagnosis: Bladder outlet obstruction - elevated PSA probable prostate cancer Procedure: 1. GreenLight Laser Enucleation of the prostate CPT 11886 4. transrectal ultrasound measurement of prostate 2. transrectal ultrasound-guided pudendal nerve block 3. transrectal ultrasound-guided prostate biopsy 12 core Surgeon: Dr Ciro Mariee Anesthesia: General History of bladder outlet obstruction. Treated with alpha-idlan and other medications. Still with symptoms. On cystoscopy in office has marked prostate bladder intrusion. CT imaging showed prostate with left-sided prostate mass Procedure: After informed consent was verified the patient was brought to the operating room and placed in a supine position. Anesthesia was administered per protocol. Patient was placed in modified dorsal lithotomy position and prepped and draped in a sterile fashion. Safety pause time-out was confirmed. Antibiotics have been given. SUKHI was performed to dilate rectal sphincter Iodine 10cc with 60 cc gel was placed per rectum to reduce infection risk using a catheter tip syringe. 8 Hz Obi rectal end-fire ultrasound probe was placed transrectally without difficulty. The prostate was visualized. Seminal vesicles were normal. Prostate margins were clearly demarcated. Bladder was seen superiorly. No cystic structures were noted No calcifications were noted at the surgical margin The prostate was otherwise heterogenous in nature - there appeared to be a mass growing off the left side of the prostate which was proximally 45 g in size as measured The prostate was measured in 3 dimensions Prostatic Width: [] cm Prostatic Height: [] cm Urethral Length: [] cm Total volume equals : 70 ml An ultrasound-guided pudendal nerve block was performed using a 22 gauge spinal needle in the sagittal plane. 4 cc of 1% lidocaine placed at the junction of each seminal vesicle and 2 cc placed at the apex of the prostate. A 12 core biopsy was performed with 6 cores each side using an 18 gauge prostate biopsy gun. Two cores each were taken at the prostate apex, mid and base on each side. Cores were spaced between lateral and medial aspects. Each core was examined as placed on specimen foam as part of air quality specialist to ensure a minimum 1 cm of length and minimal discontinuity. A Twenty-four Citizen Of [place] laser cystoscope was inserted per urethra. No abnorma lities were found of the anterior and bulbar urethra. The prostatic urethra shows trilobar hypertrophy. The bladder was examined and both ureteric orifices were seen in their normal positions away from the area of interest. Bladder trabeculation Grade 1. Using a GreenLight laser with initial settings of 120 jefferson incisions were made at the 5 and 7 o'clock position. The incisions were taken down from the bladder neck down to the area just proximal of the veru. These were gradually deepened in order to define the lateral aspects of the median lobe area. The deep boundary of enucleation was defined by the prostate surgical capsule. Once clearly defined the grooves were extended in the lateral directions in order to create a deep groove. The median lobe was then ablated and enucleated tissue released into the bladder with the laser power 120W Regarding the lateral lobes superficial clearance was made up to proximally the 03:00 and 09:00 positions. At completion debris and pieces of prostate were removed from the bladder with irrigation. Both ureteric orifices were reviewed again in shown to be patent in away from any areas of energy damage. The apical area was reviewed and any stray mucosal ooze was controlled. A 22 Citizen [place] 30 cc balloon Gamez catheter was placed into the bladder using a flexible stylet. Clear efflux was obtained upon irrigation with a Cat piston syringe. 30 cc was placed in the balloon and gentle traction was placed. A snap was used to hold tension on the catheter to control bleeding during patient moved and transported. A drainage bag was placed. Once transportation is complete to the PACU the snap will be removed. SUKHI was performed at completion of the procedure. Hard mass noted on left side prostate extending over to left side of pelvic fossa. The patient tolerated the procedure well, he was extubated in the operating and transferred in a stable condition to the recovery area. Total Power 27 kW Lasing time 4:26 Pathology: - 12 core biopsy - Prostate tissue Drains: Gamez catheter CPT code 11268: Transrectal ultrasound; this is a diagnostic test for evaluation of the prostate and surrounding structures, looking for abnormalities or suspicious areas worrisome for cancer CPT code 23637: Biopsy, prostate; needle or punch, single or multiple, any approach CPT code 36888: Ultrasonic guidance for needle placement (eg, biopsy, aspiration, injection, localization device), imaging supervision and interpretation
[2024-07-22] MEDS: oxyCODONE HCl Immed Release 5 MG TABLET PO (15:52)
== END 2024-07-22 15:57 | disposition home or self-care (01) ==
PROVIDERS: Nurse Practitioner; PCP Internal Medicine; Visit Provider Urology
PROC: (CPT 52648; principal; 2024-07-22 12:40)
PROC: (CPT 55700; 2024-07-22 12:40)
DX: N40.1 Benign prostatic hyperplasia with lower urinary tract symptoms (principal); N13.8 Other obstructive and reflux uropathy; C61 Malignant neoplasm of prostate; N42.89 Other specified disorders of prostate; R97.20 Elevated prostate specific antigen [PSA]; R33.9 Retention of urine, unspecified; E11.22 Type 2 diabetes mellitus with diabetic chronic kidney disease; I12.9 Hypertensive chronic kidney disease with stage 1 through stage 4 chronic kidney disease, or unspecified chronic kidney disease; N18.9 Chronic kidney disease, unspecified; R31.0 Gross hematuria; I69.998 Other sequelae following unspecified cerebrovascular disease; R56.9 Unspecified convulsions; Z99.3 Dependence on wheelchair; Z79.01 Long term (current) use of anticoagulants; Z79.82 Long term (current) use of aspirin; Z79.84 Long term (current) use of oral hypoglycemic drugs; Z79.899 Other long term (current) drug therapy
CPT/HCPCS: 52649; 55700; 36415; 76942; 82947; 85610; 88305; J1100; J1956; J2003; J2405; J2704; J3010

== ENCOUNTER → 2024-07-22 09:38 | Outpatient (BNV) | payer OTHER, SELFPAY | PROVIDERS: PCP Internal Medicine; Visit Provider Urology | DX: N32.0 Bladder-neck obstruction (principal); R97.20 Elevated prostate specific antigen [PSA] | CPT/HCPCS: 52649; 55700; 76872; 76942 ==

== ENCOUNTER → 2024-07-24 09:46 | Outpatient (BNVA) | payer OTHER, SELFPAY | PROVIDERS: PCP Internal Medicine; Visit Provider Urology | DX: N42.89 Other specified disorders of prostate (principal); R33.9 Retention of urine, unspecified | CPT/HCPCS: 51702; 51798 ==

== ENCOUNTER → 2024-07-26 11:18 | Outpatient (BNVA) | payer OTHER, SELFPAY | PROVIDERS: PCP Internal Medicine; Visit Provider Internal Medicine Medical Oncology ==

== ENCOUNTER → 2024-07-29 15:00 | Outpatient (BNVA) | payer OTHER, SELFPAY | PROVIDERS: PCP Internal Medicine; Visit Provider Internal Medicine Medical Oncology ==

== ENCOUNTER → 2024-08-02 16:01 | Outpatient (BNVA) | payer OTHER, SELFPAY | PROVIDERS: PCP Internal Medicine; Visit Provider Internal Medicine Medical Oncology | DX: Z79.01 Long term (current) use of anticoagulants (principal) ==

== ENCOUNTER 2024-08-07 14:23 | Outpatient (AMB) | payer OTHER, SELFPAY ==
--- NOTE | 2024-08-07 14:30 | MHC.OFFVIS ---
Intake Visit Reasons: GnRH/Prostate biopsy results Intake Note: Patient is present for GNRH/PROSTATE BIOPSY RESULTS Urology Medication:FINASTERIDE,TAMSULOSIN,ALLOPURINOL Antibiotic Allergy:NONE Blood Thinner:WARFARIN Head Chopper Required: Yes Allergies No Known Allergies Allergy (Verified 08/07/24 14:43) HPI Comments Details: Yousif is a Welsh-speaking male. He is a patient of Dr. Kent. He is seen for the following urologic conditions - elevated PSA - lower urinary tract symptoms - hematuria Follow-up after GreenLight laser with prostate biopsy Binu grade group 5 High volume disease Biopsy evidence of local invasion GNRH to be given today Follow-up with PET-CT to complete staging Lab work 4 weeks for initial response and to review imaging Stroke 2011 with seizures and diabetes Prostate cancer - grade group 5, high volume 11/12 cores - locally advanced Initial PSA 19.4 [place] score: 10 (5+5) (transurethral resection) 9 (5+4) (left base lateral and medial, left mid lateral and medial, left apex lateral and medial, and right mid medial), 9 (4+5) (right base lateral and medial, and right apex medial) 8 (4+4) (right mid lateral) Grade group: 5 and 4 Tumor quantitation: Number cores positive: 14 (excluding part M) Total number of cores: 15 % of tissue involved: 60% (including part M) Periprostatic fat inv.: Present Seminal vesicle inv.: Not identified Perineural inv.: Present Lymphatic and/or vascular invasion: Not identified Initiate GnRH Elevated PSA PSA 19.4 Plan biopsy at time of outlet procedure Lower urinary tract symptoms GreenLight laser 08/09 Progressive Prior history of retention with Gamez catheter PVR was 400 cc in emergency room Recent CT showing significantly enlarged prostate with bladder protuberant Current medications include finasteride and tamsulosin Background anticoagulation with diabetes - on Jardiance which is disrupting urination [facility] Medical History (Updated 08/07/24 @ 14:52 by Ciro Mariee MD) Renal insufficiency CKD (chronic kidney disease) Physical exam Iron deficiency anemia Psoriasis Stroke Seizures Dyslipidemia BPH (benign prostatic hyperplasia) Hypovitaminosis D Gout Abnormal laboratory test Hypertension Diabetes Surgical History History of open reduction and internal fixation (ORIF) procedure History of kidney stones Family History Mother Heart problem Father Bone cancer Social History Household Members: None 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 Housing: Apartment Are you a primary palliative care coordinator to a significant other at home: No Do you presently have visiting nurse or other home services: Yes Unable to assess alcohol history related to: Unknown Alcohol intake: never Comment: Oxycodone PO Patient Tobacco Use Status: Never used Tobacco e-Cigarette/Vaping Use: Never Used Second Hand Smoke Exposure: No Advance Directives Date on File: 12/20/11 service: No Current occupational status: disabled Cognitive needs: Yes (wheelchair) Hearing needs: No Vision needs: No Review of Systems Const Denies chills and Denies fever(s) Card Reports no additional complaints and Denies syncope Resp Denies cough GI Denies abdominal pain and Denies heartburn Reports as per HPI and Denies change in libido Neuro Denies syncope Psych Denies change in libido Endo Denies change in libido Physical Exam Const General: cooperative, healthy appearing, comfortable and no acute distress Orientation/consciousness: patient oriented x3 HEENT Face and sinus: Yes normal facial exam Mouth: moist mucous membranes Neck Neck: Yes normal visual inspection, Yes full ROM and Yes trachea midline Chest Chest palpation & inspection: normal inspection of the chest Resp Effort & Inspection: normal respiratory effort, able to speak in complete sentences and no respiratory distress GI Inspection: Yes normal to inspection Back/Spine/Pelvis Cervical Spine: normal cervical lordosis Thoracic/Lumbar Spine: thoracic and lumbar spine normal to inspection Skin General skin exam: no rashes or lesions noted Neuro General: patient oriented x3, gait normal, tone normal and moves all extremities Extrem General: Yes normal to inspection and Yes capillary refill normal Results AMB Urinalysis, Automated UA Leukoctes 125 Saira/uL Last Edit by DON Ramirez on 08/07/24 14:53 UA Nitrite Negative Last Edit by DON Ramirez on 08/07/24 14:53 UA Urobilinogen 0.2 mg/dL Last Edit by DON Ramirez on 08/07/24 14:53 UA Protein 15 mg/dL Last Edit by DON Ramirez on 08/07/24 14:53 UA pH 5.5 Last Edit by DON Ramirez on 08/07/24 14:53 UA Blood 200 Cameron/uL Last Edit by DON Ramirez on 08/07/24 14:53 UA Specific [place] 1.015 Last Edit by DON Ramirez on 08/07/24 14:53 UA Ketone Negative Last Edit by DON Ramirez on 08/07/24 14:53 UA Bilirubin 0 mg/dL Last Edit by DON Ramirez on 08/07/24 14:53 UA Glucose 0 mg/dL Last Edit by DON Ramirez on 08/07/24 14:53 Assessment & Plan Assessment & Plan (1) Hormone sensitive prostate cancer: Code(s): C61 - Malignant neoplasm of prostate; Z19.1 - Hormone sensitive malignancy status Category: Medical Plan Complete staging Start hormone treatment Orders: Orders Testosterone, Total 1 Month C61 - Malignant neoplasm of prostate, Z19.1 - Hormone sensitive malignancy status PSA,Total (Free>4and<10) 1 Month C61 - Malignant neoplasm of prostate, Z19.1 - Hormone sensitive malignancy status PET CT fusion skull to thigh Today C61 - Malignant neoplasm of prostate, Z19.1 - Hormone sensitive malignancy status Patient Instructions: This note is constructed using voice recognition software. While every effort has been made to ensure accuracy search engine optimization manager errors may have been included. Imaging studies, laboratory and physical exam results were discussed and reviewed in detail. No major barriers to patient understanding were identified. An opportunity to ask questions regarding the treatment plan was provided. All questions were answered. The patient expressed understanding and agreement with the above treatment plan. The patient is aware they should contact our office by phone for worsening of their current condition or the appearance of new urologic symptoms. Compliance is encouraged with any medications and followup testing that is ordered. It is a privilege to participate in the urologic care of your patient. If you have any questions or concerns regarding treatment for the above conditions, or other urologic issues, please do not hesitate to contact me. The office telephone contact is [phone]. Sincerely, Dr Ciro Mariee MD, GAETANO [facility] - Urology Compassionate Specialist Care for the Genitourinary System Coding Level of Care Code Est Pt Level 4 (26779) Complex EM visit Add On G2211 Diagnoses Hormone sensitive prostate cancer C61; Z19.1
--- OUTSIDE RECORDS SUMMARY | 2024-08-07 17:18 | XMS_ITS | Clinical Summary ---
Author Organization [employer] Address [address] [place] [address] [address] [place] [address] Care Team Providers Care Personal Care Assistant Name Role Phone Unavailable Primary Care Provider [...]
--- OUTSIDE RECORDS SUMMARY | 2024-08-07 17:18 | XMS_ITS | Data Portability ---
Author Organization [facility] [employer] [facility] (formerly [facility]), Main Office Address [address], [address] [place] [address] Care Team Providers Care Manager Of Data Name Role Phone [place] - 2ND [...] and Address Organization Details Recorded Time Gout 89726068 Active 2022 Mai Crespo NP [address] , [address], [place], [address], [employer] 3 14:12:09 Gastroesoph ageal reflux disease 423537904 Active 2022 Mai Crespo NP [address] , [address], [place], [address], [facility] [employer] 3 14:13:29 Vitamin deficiency 10095814 Active 2022 Mai Crespo NP [address], [address], [place], [address], [employer] 3 14:14:22 Closed fracture of greater trochanter of left femur 0291130474319 9101 Active 2022 Mai Crespo NP [address], [address], [place], [address], [employer] 3 14:16:18 Impaired cognition 715499529 Active 2022 Mai Crespo NP [address] , [address], [place], [address], [facility] [employer] [facility] [facility] 3 15:24:32 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 2022 Shamar Grijalva MD [address], [address], [place], [address], [facility] [employer] [facility] 3 08:54:24 Unsteady gait Active 2017 Shamar Grijalva MD [address], [place], [address], [facility] [employer] [facility] 8 10:50:39 History of cerebrovasc ular accident 482779389 Active 2017 Shamar Grijalva MD [address] , [address], [place], [address], [facility] [employer] [facility] [facility] 8 10:50:47 Atrial fibrillatio n 74909068 Active 2017 Shamar Grijalva MD [address], [address], [place], [address], [facility] [employer] [facility] [facility] 8 10:50:53 Diabetes mellitus 47989786 Active 2017 Shamar Grijalva MD [address], [address], [place], [address], [facility] [employer] [facility] [facility] 8 10:50:58 Systolic heart failure 044582118 Active 2017 Shamar Grijalva MD [address], [address], [place], [address], [facility] [employer] [facility] 8 10:51:10 Essential hypertensio n 45097337 Active 2017 Shamar Grijalva MD [address], [address], [place], [address], [facility] [employer] [facility] 8 10:51:17 Hypopituita rism 15476340 Active 2017 Shamar Grijalva MD [address], [place], [address], [employer] [facility] 8 10:51:44 Seizure disorder 362032024 Active 2017 Shamar Grijalva MD [address], [address], [place], [address], [facility] [employer] [facility] 8 10:53:04 Depressive disorder 19986847 Active 2017 Shamar Grijalva MD [address], [address], [place], [address], [facility] [employer] [facility] 8 10:53:11 Benign prostatic hyperplasia without outflow obstruction 239862219 Active 2017 Shamar Grijalva MD [address], [address], [place], [address], [facility] [employer] [facility] 8 11:00:59 Problem Notes None recorded. Medical Equipment None Reported. Allergies No known drug allergies Medications Not known to be on any medication Vitals Date Recorded Body weight Heart rate Respiratory rate Body temperature Oxygen saturation Oxygen saturation in Arterial blood by Pulse oximetry Systolic blood pressure Diastolic blood pressure Provider Name and Address Organization Details Last Updated DateTime 3 978276. 25 g 79 /min 18 /min 98.1 [degF] 95 % 95 % 123 mm[Hg] 80 mm[Hg] Mai Crespo NP [address] [facility], [address], [place], [address] , [facility] [employer] [facility] [facility] 3 13:51:28 Date Recorded Body weight Heart rate Respiratory rate Body temperature Oxygen saturation Oxygen saturation in Arterial blood by Pulse oximetry Systolic blood pressure Diastolic blood pressure Provider Name and Address Organization Details Last Updated DateTime 3 993092. 25 g 80 /min 18 /min 98.5 [degF] 97 % 97 % 140 mm[Hg] 84 mm[Hg] Mai Crespo NP [address] [facility], [address], [place], [address], [facility] [employer] [facility] [facility] 3 15:02:42 Date Recorded Body weight Heart rate Respiratory rate Body temperature Oxygen saturation Oxygen saturation in Arterial blood by Pulse oximetry Systolic blood pressure Diastolic blood pressure Provider Name and Address Organization Details Last Updated DateTime 3 244751. 25 g 85 /min 18 /min 98.6 [degF] 97 % 97 % 134 mm[Hg] 84 mm[Hg] Mai Crespo NP [address] [facility], [address], [place], [address], [facility] [employer] [facility] [facility] 3 14:59:33 Date Recorded Body weight Heart rate Respiratory rate Body temperature Oxygen saturation Oxygen saturation in Arterial blood by Pulse oximetry Systolic blood pressure Diastolic blood pressure Provider Name and Address Organization Details Last Updated DateTime 3 607826. 25 g 77 /min 18 /min 98.3 [degF] 96 % 96 % 138 mm[Hg] 72 mm[Hg] Mai Crespo NP [address] [facility], [address], [place], [address], [facility] [employer] [facility] [facility] 3 09:15:29 Date Recorded Systolic blood pressure Diastolic blood pressure Provider Name and Address Organization Details Last Updated DateTime 02/22/2023 138 mm[Hg] 79 mm[Hg] Shamar Grijalva MD [address], [address], [place], [address], [facility] [employer] [facility] [facility] 02/22/2023 08:37:55 Social History Question Answer Notes LastModified by Organizat ion Details LastModified Time Tobacco Smoking Status Never Smoker Shamar Grijalva MD [address], [address], [place], [address], [facility] [employer] [facility] [facility] 04/24/2017 11:08:45 Do You Have An Advance Directive? Yes Full Code Information not available 04/24/2017 What Is Your Level Of Alcohol Consumption? None Information not available 04/24/2017 How Much Tobacco Do You Chew? None Information not available 04/24/2017 What Is Your Code Status? Full Code Information not available 02/15/2023 Do You Have A Medical Power Of Fulfillment Specialist? No Information not available 04/24/2017 What Was [...] PF 03/30/2023 completed Sharon camilo [place] - [facility] 06/15/2023 12:40:58 Past Encounters Encounter ID Performer Location Encounter Start Date Encounter Closed Date Diagnosis/Indication Diagnosis SNOMED-CT Code Diagnosis ICD10 Code Diagnosis Note [id number] Shamar Grijalva MD [address] [address] 04/24/2017 10:46:11 05/03/2017 13:22:45 Unsteady gait 860736616 R26.81 see HPIgait instabilit y and generalize d weakness admit for continued care. 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 History of cerebrovascular accident 289472030 Z86.73 see above Atrial fibrillation 4943 6004 I48.0 maintained on coumadinmo nitor and titrate dosemetopr olol for rate control Diabetes mellitus 314504 09 E11.9 metformin 500 mg qdmonitor blood gluocse Systolic h eart failure 627302982 I50.22 carrying dxnot currently on diureticmo nitor fluid status and respirator y function Essential hypertension 14451854 I10 norvasc discontinu ed in hospital maintained onmetoprol ol 12.5 mg qdmonitor bp and labs Hypopituitarism 51268899 E23.0 hx of added to PMHcortef 10 mg qam 5 mg qpm Seizure disorder 5603091 02 G40.89 keppra 750 mg bidmonitor for activity Depressive disorder 3548 9007 F32.89 prozac 20 mg qdmonitor mood Benign pro static hyperplasia without outflow obstruction 601137439 N40.0 [place]omax 0.4 [place] [id number] Gladis Box [facility] [address] [address] 04/26/2017 11:47:39 05/03/2017 13:25:43 Low back pain 357124683 M54.5 Secondary to mechanical fallCurren tly on oxycodone 5 mg Q6h prn-will increase to 5-10 mg Q4h prn and monitorPat ient agrees to work with therapy if pain can be better controlled [id number] Shamar Grijalva MD [facility] [address] 05/01/2017 10:19:25 05/03/2017 13:36:42 Unsteady gait 920144722 R26.81 improved with PT OT Atrial fibrillation 4943 6004 I48.0 maintained on coumadinmo nitor and titrate doserate controlled on metorprolo lremains in sinus rhythm Diabetes mellitus 979795 09 E11.9 metformin 500 mg qdcontinue Essential hypertension 38456961 I10 norvasc discontinu ed in hospital maintained onmetoprol ol 12.5 mg qdmonitor bp and labs Hypopituitarism 95758359 E23.0 hx of added to PMHcortef 10 mg qam 5 mg qpm Seizure disorder 8842082 02 G40.89 keppra 750 mg bidcontinu e Depressive disorder 3548 9007 F32.89 prozac 20 mg qdcontinue Benign pro static hyperplasia without outflow obstruction 241962244 N40.0 flomax 0.4 mg qdcontinue [id number] Mai Crespo NP [facility] [address] [place] [address] 02/15/2023 13:50:23 02/21/2023 13:17:35 History of cerebrovascular accident 032508954 Z86.73 hx of cva with right sided weaknessas pirin 81 mg po dailyon ac see belownow non weight bearing to left sidemonito r Atrial fibrillation 4943 6004 I48.0 maintained on coumadinwa s on 2.5mg alt with 5 mg every other daymonitor and titrate dosemetopr olol for rate control Diabetes mellitus 505967 09 E11.9 metformin 500 mg qdmonitor blood glucose Systolic h eart failure 965092758 I50.22 carrying dxnot currently on diureticmo nitor fluid status and respirator y function Essential hypertension 30879271 I10 amlodipine 2.5 mg po dailymetop rolol succ 12.5 mg qdmonitor bp and labs Hypopituitarism 31772778 E23.0 hx of added to PMHcortef 10 mg qam Seizure disorder 6823732 02 G40.89 keppra 750 mg bidmonitor for activity Depressive disorder 3548 9007 F32.89 prozac 20 mg qdmirtazap ine 15 mg po dailymonit or mood Benign pro static hyperplasia without outflow obstruction 307192629 N40.0 flomax 0.4 mg qdmyrbetri q 25 mg po dailymonit or for sx Hyperlipidemia 46928851 E78.5 atorvastat in 40 mg po bedtimemon itor Gout 67192361 M10.9 allopurino l 100 mg po dailymonit or Gastroesop hageal reflux disease 700989247 K21.9 famotidine 20 mg po dailymonit or Vitamin deficiency 91403 002 E56.9 magnesium oxide 250mg tidferrous sulfate 325 mg po dailymonit or Closed fra cture of greater trochanter of left femur 5883951030 4238885 S72.115A non surgical per orthonon weight bearing to left sideokay to use kimberly lift if needed with careful transfer prnair loss bariatric mattress due to non weight bearing status of left and right weak cva11/1add lidocaine patch to left hip topically dailywill need fu with orthooxyco done 5 mg po q 6 hours prn paintyl prnPT OTon ac coumadin Impaired cognition 91650 6002 R41.89 scores 13/30 for moderate cognitive impairment invoke today, with son as decision makermonit or [id number] Shamar Grijalva MD [facility] [address] [address] 02/22/2023 08:30:44 02/24/2023 15:15:57 Closed fracture of greater trochanter of left femur 0798455403 9373099 S72.115A see HPIleft greater trochanter ic femur fx. Eval by ortho with no surgical interventi on indicated at that time to remains NWB till cleared by orthoPT OT eval and treatmonit or fall risk and pain controlupd ate ortho with concerns History of cerebrovascular accident 421149914 Z86.73 baseline right sided weakness post prior cvaPT TO Eval and treat Atrial fibrillation 6453 6004 I48.0 coumadin monitor and titrate following INRmetopro lol 12.5 mg qdmonitor for rate control Diabetes mellitus 004756 09 E11.9 metformin 500 mg qdmonitor blood glucose and need to adjust Systolic h eart failure 665929825 I50.22 carrying dxcurrentl y not on diureticmo nitor fluid status and respirator y function Essential hypertension 84092339 I10 norvasc 2.5 mg po qdmetoprol ol 12.5 mg qdmonitor bp and labs Seizure disorder 9249872 02 G40.89 keppra 750 mg bidmonitor for activity Benign pro static hyperplasia without outflow obstruction 699006757 N40.0 flomax 0.4 mg qdmyrbetri q 25 mg po qdmonitor for sx relief Hyperlipidemia 13298135 E78.2 lipitor 40 mg qdcontinue d Gastroesop hageal reflux disease 356847999 K21.9 famotidine 20 mg po qdmonitor for sx relief Impaired cognition 12261 6002 R41.89 baseline cognitive impairment unable to make own decisionsi nvoke HCPcontinu e supportive caremonito r need for increased services in community Myelolipom a of adrenal gland 486395157 D35.01 see HPIInciden filippo finding of probable myelolipom a right adrenal lesionrepe at CT in 3-6 monthsmoni tor need for biospycoul d refer to IR [id number] Mai Crespo NP [facility] of [address] [address] 03/02/2023 14:58:01 03/07/2023 07:54:51 Closed fracture of greater trochanter of left femur 3226642851 2264427 S72.115A non surgical per orthonon weight bearing [...] OTon ac coumadin History of cerebrovascular accident 328587257 Z86.73 hx of cva with right sided weaknessas pirin 81 mg po dailyon ac see [place] non weight bearing to left sidemonito r Atrial fibrillation 4943 6004 I48.0 maintained on coumadinmo nitor inr/pt on Mondays and prncont on regular therapy 2.5mg alt with 5 mg every other daymonitor and titrate dosemetopr olol for rate control Diabetes mellitus 179740 09 E11.9 metformin 500 mg qdmonitor blood glucose Systolic h eart failure 495773139 I50.22 carrying dxnot currently on diureticmo nitor fluid status and respirator y function Essential hypertension 97206585 I10 amlodipine 2.5 mg po dailymetop rolol succ 12.5 mg qdmonitor bp and labs Hypopituitarism 96607702 E23.0 hx of added to PMHcortef 10 mg qam Seizure disorder 7731186 02 G40.89 keppra 750 mg bidmonitor for activity Depressive disorder 3548 9007 F32.89 prozac 20 mg qdmirtazap ine 15 mg po dailymonit or mood Benign pro static hyperplasia without outflow obstruction 087332349 N40.0 flomax 0.4 mg qdmyrbetri q 25 mg po dailyconsi arik dc myrbetriq if retention occursmoni tor for sx Impaired cognition 08360 6002 R41.89 scores 13/30 for moderate cognitive impairment invoked son as decision makermonit or [id number] Mai Crespo NP [facility] [address] [address] 03/10/2023 14:58:06 03/15/2023 09:02:40 Closed fracture of greater trochanter of left femur 0503040722 7996710 S72.115A non surgical per orthonon weight bearing [...] OTon ac coumadin History of cerebrovascular accident 934111145 Z86.73 hx of cva with right sided [...] dosemetopr olol for rate control Diabetes mellitus 700749 09 E11.9 metformin 500 mg qdmonitor blood glucose Systolic h eart failure 791465518 I50.22 carrying dxnot currently on diureticmo nitor fluid status and respirator y function Essential hypertension 13361211 I10 amlodipine 2.5 mg po dailymetop rolol succ 12.5 mg qdmonitor bp and labs Seizure disorder 5524874 02 G40.89 keppra 750 mg bidmonitor for activity Depressive disorder 3548 9007 F32.89 prozac 20 mg qdmirtazap ine 15 mg po dailymonit or mood Benign pro static hyperplasia without outflow obstruction 616155158 N40.0 flomax 0.4 mg qdmyrbetri q 25 mg po dailyconsi arik dc myrbetriq if retention occursmoni tor for sx Impaired cognition 57287 6002 R41.89 scores 13/30 for moderate cognitive impairment invoked son as decision makermonit or [id number] Mai Crespo NP [facility] [address] [address] 03/15/2023 09:03:01 03/20/2023 10:39:58 Closed fracture of greater trochanter of left femur 4042672474 3767212 S72.115A non surgical per orthonon weight bearing [...] at baselinefu with pcp outpt Diabetes mellitus 465220 09 E11.9 metformin 500 mg qdmonitor blood glucose History of cerebrovascular accident 705401024 Z86.73 hx of cva with right sided weaknessas pirin 81 mg po dailyon ac see below with coumadinno n weight bearing to left side, however pt using left leg at timesmonit or Atrial fibrillation 4943 6002 I48.0 maintained on coumadinco nt on regular therapy 2.5mg alt with 5 mg every other daymonitor and titrate dose per outpt pcpcont metoprolol for rate controllev els here above Systolic h eart failure 874152620 I50.22 carrying dxnot currently on diureticmo nitor fluid status and respirator y function outpt Essential hypertension 59923656 I10 stable here on:amlodip ine 2.5 mg po dailymetop rolol succ 12.5 mg qdmonitor outpt with pcp Seizure disorder 2438479 02 G40.89 keppra 750 mg bidmonitor for activity outpt Depressive disorder 3548 9007 F32.89 prozac 20 mg qdmirtazap ine 15 mg po dailymonit or mood outpt with pcppsych outpt prn Benign pro static hyperplasia without outflow obstruction 005056839 N40.0 flomax 0.4 mg qdmyrbetri q 25 mg po dailyconsi arik dc myrbetriq if retention occursmoni tor for sx outpt with pcp Impaired cognition 07347 6002 R41.89 scores 13/30 for moderate cognitive impairment on admissioni nvoked son as decision makermonit or outpt with family and [facility] Health Concerns Section Related Observation LastModified by Organization Detai ls LastModified Time None Recorded Concern Status LastModified by Organization Details LastModified Time None Recorded Advance Directives Directive Y: Full code Payers Encounter Date Sequence Insurance Name Policy Number Policy Sims Covered Member ID Sims Member ID Guarantor Name 02/15/2023 1 [facility] CARE [employer] - DOS ON OR AFTER 2022 - MEDICARE [place]VANTAGE [place]ACEMENT/ADV ANTAGE - PPO) Yousif Mcintosh [id number] Suseunice Velazquezgos 02/15/2023 2 [place] [facility] Suseunice Nailss [id number] Suseunice Mcintosh 02/22/2023 1 [facility] [employer] - DOS ON OR AFTER 2022 - [place]V [place] - PPO) Susano Mcintosh [id number] Susano Mcintosh 02/22/2023 2 [place] [facility] Suseunice Mcintosh [id number] Suseunice Mcintosh 03/02/2023 1 [facility] [employer] - DOS ON OR AFTER 2022 - [place]V ANT[place] - PPO) Suseunice Velazquezgos [id number] Suseunice Mcintosh 03/02/2023 2 [place] [facility] Yousif Nailss [id number] Yousif Velazquezgos 03/10/2023 1 [facility] - DOS ON OR AFTER 2022 - [place]/ADV ANTAGE - PPO) Yousif Nailss [id number] Yousif Velazquezgos 03/10/2023 2 [place] [facility] Yousif Velazquezgos [id number] Yousif Velazquezgos 03/15/2023 1 [facility] - DOS ON OR AFTER 2022 - [place]/ADV ANTAGE - PPO) Yousif Velazquezgos [id number] Yousif Mcintosh 03/15/2023 2 [place] [facility] Yousif Nailss [id number] Yousif Mcintosh Notes Date Note Type Note [...] lateral ventricle. On exam, he is mostly Cymraes speaking and charity fundraiser used. He states the oxycodone helps with [...] to sign document Mai Crespo NP [address], [address], [place], [address], [facility] [employer] [facility] 02/17/2023 16:46:18 02/23/20 23 text/htm l [...] finding of probable myelolipoma right adrenal lesion Cymraes speaking charity fundraiser present PMH significant forgerdimpaired cognitionbphdepressionseizure dxhypopituitarismchfdma fibhx CVAhtngait instability admit to facility for continued care and therapy Shamar Grijalva MD [address], [address], [place], [address], [facility] [employer] [facility] [facility] 02/22/2023 09:05:01 03/02/20 23 text/htm l [...] for now. On exam, he is mostly Cymraes speaking and charity fundraiser used. He is transferring to toilet with help today. He reports the oxycodone and lidocaine patch are helping with the pain. MOLST: awaiting son to sign document Mai Crespo NP [address], [address], [place], [address], [facility] [employer] [facility] 03/02/2023 15:15:55 03/10/20 23 text/htm l [...] and wnl. On exam, he is mostly Cymraes speaking and charity fundraiser used. He denies any concerns today. He is motoring around in his wheelchair today. Pain controlled. MOLST: awaiting son to sign document Mai Crespo, XIAO [address], [address], [place], [address], [employer] 03/10/2023 15:06:40 03/15/20 23 text/htm l 72 yo male seen seen for a discharge visit today. He initally presented to [facility] on 02/14 with hx of left MCA [...] mild dilation of left lateral ventricle. At [facility] Yousif continues to do well working with [...] pain control. On exam, he is mostly Cymraes speaking and charity fundraiser used. He denies any concerns today and states his pain is controlled. He is excited to go home and [employer] is supposed to pick him up. MOLST: awaiting son to sign document- still not addressed Mai Crespo, XIAO [address], [address], [place], [address], [facility] - [employer] 03/15/2023 09:47:09
--- OUTSIDE RECORDS SUMMARY | 2024-08-07 17:18 | XMS_ITS | Clinical Summary ---
Author Organization [facility] Address [address] [place] [address] Phone Care Team Providers Care Multi Share Program Coordinator Name Role Phone Poonam Hernandez MD Primary Care Provider [phone] Allergies Active Allergy Reactions Criticality Noted Date [...] Due Date Last Done Comments Pneumococcal Vaccine: 50+ Ye ars (1 of 2 - PCV) 1964 Diabetes: Hemoglobin A1C 07/08/2019 Diabetes: Ophthalmology Exam 07/08/2019 Diabetes: Pedal Pulse Checked 07/08/2019 Diabetes: Sensory Foot Exam 07/08/2019 Diabetes: Visual Foot Exam 07/08/2019 Influenza Vaccine (Season Ended) 2024 Hepatitis B Vaccine Aged Out No longe r eligible based on patient's age to complete this topic Insurance [facility] [place] [id number] [facility] [place] [id number] Care Teams Multi Share Program Coordinator Relationship Specialty Start Date End Date Poonam Hernandez MD [address] [place], [place] PCP - General Internal Medicine 04/14/21
--- OUTSIDE RECORDS SUMMARY | 2024-08-07 17:18 | XMS_ITS | Data Portability ---
Author Organization [facility] [place] [facility] Address [address] [place] [id number] Care Team Providers Care Fruit Harvest Machine Operator Name Role Phone HIM FARA OTHER Assessment Encounter Date Assessment Date Assessment LastModified by Organization Details LastModified Time 02/14/2024 02/14/2024 As noted, we were called to see this patient regarding concerns of catheter discomfort. Evaluation in the field was performed by my winter intern colleague, as noted above, I provided real-time [...] not on abx at this time. Today MEDICAL LEADER noted that pt began to have discomfort [...] of any new or worsening serious symptoms [id number] Not available 02/14/2024 13:43:37 Plan of Treatment Reminders Order Date Submit Date Provider Last Modified By Organization Details Last Modified Time Details Appointments None recorded. Lab culture, urine 2023 [place] (Centralized Electronic Ordering - All Locations), Patient Can Go To The Location Of Their Choice, [facility] 4 12:06:07 urinalysis, dipstick 2023 [address], [phone] 13:38:24 BMP, serum or plasma [address], [phone] 4 13:55:24 hemoglobin + hematocrit, blood 2023 024 [facility], [address] [place] [address], [phone] 14:07:51 Referral None recorded. Procedures None recorded. Surgeries None recorded. Imaging None recorded. Medication Orders clotrimazol e 1 % topical cream [address] [id number], [address] [facility], [place], [address], 13:20:20 prednisone 20 mg tablet 2023 024 [facility], [address], [place], [id number], 4 13:20:13 prednisone 20 mg tablet [address] [id number], [address] [place], [address], 4 13:20:19 Tylenol 325 mg tablet 2021 022 [facility], [address], [place], [id number], 12:41:29 Patient TargetsNo targets recorded. Patient InstructionsNo instructions recorded. Reason for Referral None Reported. Results Created Date Observation Date Name Description Value Unit Range Abnormal Flag Note LastModifiedBy Organization Detail LastModifiedTime 09/22/19 24 09/22/2023 hemog lobin + hemat ocrit , blood Hemoglobin 13.7 Not Available [facility] [address] [place] [address], [phone] 09/22/2023 13:55:39 09/22/19 24 09/22/2023 hemog lobin + hemat ocrit , blood Hematocrit 40 Not Available [facility] [address] [place] [address], [phone] 09/22/2023 13:55:39 09/22/19 24 09/22/2023 BMP, serum or plasm a BUN 21 Not Available [facility] - [facility] [address], [address] 09/22/2023 13:10:34 09/22/19 24 09/22/2023 BMP, serum or plasm a Ca 1.07 Not Available [facility] - [facility] [address], [address] 09/22/2023 13:10:34 09/22/19 24 09/22/2023 BMP, serum or plasm a CI- 107 Not Available [facility] - [facility] [address], [address] 09/22/2023 13:10:34 09/22/19 24 09/22/2023 BMP, serum or plasm a CRE 1.57 Not Available [facility] - [facility] [address], [address] 09/22/2023 13:10:34 09/22/19 24 09/22/2023 BMP, serum or plasm a GLU 146 Not Available [facility] - [facility] [address], [address] 09/22/2023 13:10:34 09/22/19 24 09/22/2023 BMP, serum or plasm a K+ 4.7 Not Available [facility] - [facility] [address], [address] 09/22/2023 13:10:34 09/22/19 24 09/22/2023 BMP, serum or plasm a Na+ 146 Not Available [facility] - [facility] [address], [address] 09/22/2023 13:10:34 09/22/19 24 09/22/2023 BMP, serum or plasm a tCO2 27 Not Available [facility] - [facility] [address], [address] 09/22/2023 13:10:34 02/14/20 24 02/17/2024 URINE CULTU RE,CO MPREH ENSIV E urine culture,comp rehensive Final report abnormal Not Available [facility] ([facility]) [address] [facility], [place], [address], 02/17/2024 10:06:10 02/14/20 24 02/17/2024 URINE CULTU RE,CO MPREH ENSIV E result 1 Proteu s mirabi lis abnormal Great er than 100,0 00 colon y formi ng units per mL Susce ptibi lity profi le is consi stent with a proba ble ESBL. Not Available [facility] ([facility]) [address] [facility], [place], [address], 02/17/2024 10:06:10 02/14/20 24 02/17/2024 URINE CULTU RE,CO MPREH ENSIV E antimicrobia [...] thopr im/Kumar lfa S Not Available [facility] ([facility]) [address], [place], [address], 02/17/2024 10:06:10 Result Notes None recorded. Medical [...] Available Not Available N ot Available [employer] [place] Lite kit USE DIRECTED active Not Available [...] % 98.9 [degF] 16 /min 68 /min 69326.3 2 g 104 mm[Hg] 74 mm[Hg] Not Available [facility] 4 13:04:35 Date Recorded Body height Body weight Respiratory rate Body temperature Oxygen saturation Oxygen saturation in Arterial blood by Pulse oximetry Heart rate Systolic blood pressure Diastolic blood pressure Provider Name and Address Organization Details Last Updated DateTime 4 187.96 cm 619684. 608 g 16 /min 98.6 [degF] 99 % 99 % 80 /min 116 mm[Hg] 71 mm[Hg] Not Available [facility] 4 13:29:45 Date Recorded Heart rate Respiratory rate Oxygen saturation Oxygen saturation in Arterial blood by Pulse oximetry Body temperature Systolic blood pressure Diastolic blood pressure Provider Name and Address Organization Details Last Updated DateTime 2 64 /min 16 /min 96 % 96 % 98.4 [degF] 116 mm[Hg] 79 mm[Hg] Prakash Willis MD [address] [facility],[address], [place], [address], [place] [facility] 2 22:59:54 Date Recorded Oxygen saturation Oxygen saturation [...] 753 Prakash Willis MD Main - [facility] [address] [place] [phone] 07/15/2021 22:59:29 12/07/2021 16:05:03 Blister [id number] R23.8 No red flag symptoms- Has close f/u with dermatolog y; may need drainage (likely has collection of blood in blister)- Does not wish to go to urgent care/ED for drainage at this time- Has close f/u with PCP as well- Advised to use bandage to wrap toe [id number] [facility] [address] [place] [phone] 03/09/2022 12:31:12 03/11/2022 10:44:07 Pain of right knee joint [id number] 57626 M25.561 Can bear weight. Cannot tolerate NSAIDS; will rx tylenol and encourage f/u with PCP in 1 week [id number] ROSY DUCKWORTH [facility] [address] [place] [phone] 09/22/2023 13:04:26 09/22/2023 21:08:47 Contact dermatitis [id number] L25.9 Evaluation in the field was performed by my winter intern colleague, as noted above, I provided real-time [...] days ( first dose given by the winter intern) -Clotrimaz ole cream 1 %-Red flags discussed [...] from the leg or any other concerns. [id number] Manoj Angela MD Main - [facility] [address] [place] [phone] 02/14/2024 13:29:41 02/14/2024 15:51:41 Indwelling urethral urinary catheter in situ [id number] Z96.0 Health Concerns Section Related Observation LastModified by Organization Detai ls LastModified Time None Recorded Concern Status LastModified by Organization Details LastModified Time None Recorded Advance Directives Directive None Recorded Payers Encounter Date Sequence Insurance Name Policy Number Policy Sims Covered Member ID Sims Member ID Guarantor Name 07/15/2021 1 [facility] - DOS PRIOR TO 2022 - DUAL ELIGIBLE (MEDICARE REPLACEMENT/ADV ANTAGE - HMO) Yousif Mcintosh [id number] Yousif Mcintosh 03/09/2022 1 [facility] - DOS PRIOR TO 2022 - DUAL ELIGIBLE (MEDICARE REPLACEMENT/ADV ANTAGE - HMO) Yousif Mcintosh [id number] Yousif Mcintosh 09/22/2023 1 [facility] - DOS ON OR AFTER 2022 - DUAL ELIGIBLE - DETENTION OPTIONS AND ONE CARE (MEDICARE REPLACEMENT/ADV ANTAGE - HMO) Yousif Mcintosh [id number] Yousif Mcintosh 02/14/2024 1 [facility] - DOS ON OR AFTER 2022 - DUAL ELIGIBLE - DETENTION OPTIONS AND ONE CARE (MEDICARE REPLACEMENT/ADV ANTAGE - HMO) Yousif Mcintosh [id number] Yousif Mcintosh Notes Date Note Type Note Provider Name and Address Organization Details Recorded Time 07/15/2021 text/html Per winter intern an d patient:- patient states that he [...] purulent drainage- no fevers Prakash Willis MD [address] [place] [address],[address], [place], [address], [place] [facility] 07/15/2021 23:02:30 03/09/2022 text/html [facility] Nursing Assessment: Reason For Request: Pain in neck and right knee Chief Complaints: Pain PMH: CHF, Diabetes, Hypertension Allergies: No Known Comments: MEDICAL LEADER calling for member to have [facility] visit for atraumatic L knee pain x 2 days no OTC's via [place] int ................... ................... ................... ................... ................... ................... ................... ........ Fiscal Manager Note: Complaint of knee pain x2 days, [...] ........ Disposition: Fulfilled Prakash Willis MD [address] [facility],[address], [place], [address], [facility] 03/09/2022 17:17:03 09/22/2023 text/html CRC Nurse Triage Notes (Clarissa Rae): Reason For Request: Pt's MEDICAL LEADER reporting right leg edema with discharge going on 1 week, with some swelling, redness and discharge Chief Complaints: Edema, Cellulitis PMH: CHF, Diabetes, Hypertension Allergies: No Known Comments: Members MEDICAL LEADER calling in to place a referral, member identified via name and . Member with probable cellulitis. Member with redness and edema to right lower leg for a week. Per MEDICAL LEADER skin is dry and weeping, +pitting, denies warmth, no fever/chills, not on any diuretics. Member with hx of cellulitis. Member would like to be evaluated. Fiscal Manager POC Test Results from Jace Arroyo [facility] (13:12:53) pH: 7.406 pH units pCO2: 38.3 mmHg pO2: 27.2 mmHg Na: 141 mmol/L K: 4.7 mmol/L iCa: 1707 mmol/L Cl: 107 mmol/L TCO2: 23.6 mEq/L Hct: 40 % Hb: 13.7 g/dL Glu: 146 mg/dL Lac: 1.22 mmol/L Cr: 1.57 mg/dL BUN: 27 mg/dL A ................... ................... ................... ................... ................... ................... ................... ........ Fiscal Manager Note From Jace Arroyo: Pt co rash/bug [...] the touch. POc bloodwork unremarkable. Lungs clear. [facility] contacted and 20mg prednisone po given and [...] ................... ................... ........ Disposition: Ame DUCKWORTH MD [address] [facility],[address], [place], [address], [facility] 09/22/2023 14:08:54 02/14/2024 text/html CRC Nurse Triage Notes (Josephine Lilly): Reason For Request: MEDICAL LEADER [facility] calling in, pt experiencing pain near catheter site Chief Complaints: Urinary catheter/nephrostom y tube problems PMH: Congestive Heart Failure, Hypertension, Stroke, Epilepsy/Seizure Disorder, Diabetes Mellitus Type 2 Comments: Went to ER on Monday for urinary retention. New goldman catheter placed. Having pain at insertion site that started today with hematuria. Denies fever, low back pain, or abdominal pain. On coumadin. Fiscal Manager Organization Information for Lacho Andrews Business Legal Name: [employer]? Address: [address] [place] [id number], System Sales Consultant: Kingsley Torres MD RILEY No.: [id number] Fiscal Manager POC Test Results from Lacho Andrews Blood Glucose Measurement (:24) Blood Glucose: 181 mg/dL Urine Dipstick (:) Urine leukocytes: + TAMMY Urine nitrites: - NIT Urine urobilinogen: - URO Urine protein: ++ PRO Urine pH: 6.5 pH Urine blood: +++ BLO Urine specific gravity: 1.010 SG Urine ketones: +/- KET Urine bilirubin: - CAITLIN Urine glucose: ++++ GLU ................... ................... ................... ................... ................... ................... ................... ........ Fiscal Manager Note From Lacho Andrews: [facility] makes pt contact, 79 yom w/ c/c of urinary catheter insertion site pain and hematuria.[facility] obtains pt consent. Vital signs are gathered and urine sample is obtained for testing and culture from catheter tubing. Urine analysis is performed and pt is physically assessed. He is conscious, alert, and oriented and answering all questions appropriately through his MEDICAL LEADER, who is translating for the him. Pt [...] is noted in his catheter bag and MEDICAL LEADER reports a strong ammonia smell to his urine when she emptied his bag this morning.[facility] contacts [facility] and discusses the above assessment and findings. [facility] orders urine to be sent to the lab. Pt is informed he will receive test results in a couple days. [facility] ensures pt and caregiver have no further questions or concerns. [facility] drops urine sample off at [facility] is clear. Report completed by KRISTAL Andrews [id number] [facility] Lab Orders: culture, urine: Performed ................... ................... ................... ................... ................... ................... ................... ........ [facility] Consulted: Manoj Angela ................... ................... ................... ................... ................... ................... ................... ........ Disposition: Ame Angela MD [address] [facility],[address], [place], [address], [employer] 02/14/2024 14:39:55
== END 2024-08-07 14:57 | disposition home or self-care (01) ==
LOC: HO.HUSH 14:24
PROVIDERS: PCP Internal Medicine; Visit Provider Urology
DX: C61 Malignant neoplasm of prostate (principal); Z19.1 Hormone sensitive malignancy status; Z13.9 Encounter for screening, unspecified
CPT/HCPCS: 99024

== ENCOUNTER → 2024-08-07 14:23 | Outpatient (BNVA) | payer OTHER, SELFPAY | PROVIDERS: PCP Internal Medicine; Visit Provider Urology | DX: C61 Malignant neoplasm of prostate (principal); Z19.1 Hormone sensitive malignancy status | CPT/HCPCS: 81003; 96402; 99212; J9217 ==

== ENCOUNTER → 2024-08-07 23:59 | Outpatient (BNV) | payer OTHER, SELFPAY | PROVIDERS: PCP Internal Medicine; Visit Provider Internal Medicine | DX: E11.9 Type 2 diabetes mellitus without complications (principal); I69.351 Hemiplegia and hemiparesis following cerebral infarction affecting right dominant side; I69.00 Unspecified sequelae of nontraumatic subarachnoid hemorrhage; M62.81 Muscle weakness (generalized) | CPT/HCPCS: G0179 ==

== ENCOUNTER → 2024-08-16 14:34 | Outpatient (BNVA) | payer OTHER, SELFPAY | PROVIDERS: PCP Internal Medicine; Visit Provider Internal Medicine Medical Oncology ==

== ENCOUNTER 2024-08-23 13:09 | Outpatient (AMB) | payer OTHER, SELFPAY ==
--- OUTSIDE RECORDS SUMMARY | 2024-08-23 13:12 | XMS_ITS | Clinical Summary ---
Author Organization [employer] Address [address] [place] [address] [address] [place] [address] Care Team Providers Care Pulper Operator Name Role Phone Unavailable Primary Care Provider [...]
--- OUTSIDE RECORDS SUMMARY | 2024-08-23 13:12 | XMS_ITS | Data Portability ---
Author Organization [employer] [place] [employer] Address [address] [place] [id number] Care Team Providers Care Rope Tier Name Role Phone HIM FARA OTHER Assessment Encounter Date Assessment Date Assessment LastModified by Organization Details LastModified Time 02/14/2024 02/14/2024 As noted, we were called to see this patient regarding concerns of catheter discomfort. Evaluation in the field was performed by my school cleaner colleague, as noted above, I provided real-time [...] not on abx at this time. Today EXPORT CLERK noted that pt began to have discomfort [...] of any new or worsening serious symptoms [id number] Not available 02/14/2024 13:43:37 Plan of Treatment Reminders Order Date Submit Date Provider Last Modified By Organization Details Last Modified Time Details Appointments None recorded. Lab culture, urine 2023 [place] [facility] (Centralized Electronic Ordering - All Locations), Patient Can Go To The Location Of Their Choice, [facility] 4 12:06:07 urinalysis, dipstick 2023 [address], [id number] 13:38:24 BMP, serum or plasma [address], [phone] 4 13:55:24 hemoglobin + hematocrit, blood 2023 024 [facility], [address] [place] [address], [phone] 14:07:51 Referral None recorded. Procedures None recorded. Surgeries None recorded. Imaging None recorded. Medication Orders clotrimazol e 1 % topical cream 2023 024 [id number], [address] [facility], [place], [address], 13:20:20 prednisone 20 mg tablet 2023 024 [facility], [address] [place], [place], [id number], 4 13:20:13 prednisone 20 mg tablet 2023 024 [id number], [address] [place], [address], 4 13:20:19 Tylenol 325 mg tablet 2021 022 [facility], [address], [place], [id number], 12:41:29 Patient TargetsNo targets recorded. Patient InstructionsNo instructions recorded. Reason for Referral None Reported. Results Created Date Observation Date Name Description Value Unit Range Abnormal Flag Note LastModifiedBy Organization Detail LastModifiedTime 09/22/19 24 09/22/2023 hemog lobin + hemat ocrit , blood Hemoglobin 13.7 Not Available [facility] [address] [place] [address], [phone] 09/22/2023 13:55:39 09/22/19 24 09/22/2023 hemog lobin + hemat ocrit , blood Hematocrit 40 Not Available [facility] [address] [place] [address], [phone] 09/22/2023 13:55:39 09/22/19 24 09/22/2023 BMP, serum or plasm a BUN 21 Not Available [facility] - [facility] [address], [phone] 09/22/2023 13:10:34 09/22/19 24 09/22/2023 BMP, serum or plasm a Ca 1.07 Not Available [facility] - [facility] [address], [address] 09/22/2023 13:10:34 09/22/19 24 09/22/2023 BMP, serum or plasm a CI- 107 Not Available [facility] - [facility] [address], [address] 09/22/2023 13:10:34 09/22/19 24 09/22/2023 BMP, serum or plasm a CRE 1.57 Not Available [facility] - [facility] [address], [address] 09/22/2023 13:10:34 09/22/19 24 09/22/2023 BMP, serum or plasm a GLU 146 Not Available [facility] - [facility] [address], [address] 09/22/2023 13:10:34 09/22/19 24 09/22/2023 BMP, serum or plasm a K+ 4.7 Not Available [facility] - [facility] [address], [address] 09/22/2023 13:10:34 09/22/19 24 09/22/2023 BMP, serum or plasm a Na+ 146 Not Available [facility] - [facility] [address], [address] 09/22/2023 13:10:34 09/22/19 24 09/22/2023 BMP, serum or plasm a tCO2 27 Not Available [facility] - [facility] [address], [address] 09/22/2023 13:10:34 02/14/20 24 02/17/2024 URINE CULTU RE,CO MPREH ENSIV E urine culture,comp rehensive Final report abnormal Not Available [facility] ([facility]) [address] [facility], [place], [address], 02/17/2024 10:06:10 02/14/20 24 02/17/2024 URINE CULTU RE,CO MPREH ENSIV E result 1 Proteu s mirabi lis abnormal Great er than 100,0 00 colon y formi ng units per mL Susce ptibi lity profi le is consi stent with a proba ble ESBL. Not Available [facility] ([facility]) [address] [facility], [place], [address], 02/17/2024 10:06:10 02/14/20 24 02/17/2024 URINE CULTU [...] thopr im/Kumar lfa S Not Available [facility] ([facility]) [address], [place], [address], 02/17/2024 10:06:10 Result Notes None recorded. Medical [...] clotrimazole 1 % topical cream APLIQUE AL QUINYC AFECTADA DOS VECES AL D A EN [...] Available Not Available N ot Available [employer] kit USE DIRECTED active Not Available [...] % 98.9 [degF] 16 /min 68 /min 17251.3 2 g 104 mm[Hg] 74 mm[Hg] Not Available [facility] [employer] 4 13:04:35 Date Recorded Body height Body weight Respiratory rate Body temperature Oxygen saturation Oxygen saturation in Arterial blood by Pulse oximetry Heart rate Systolic blood pressure Diastolic blood pressure Provider Name and Address Organization Details Last Updated DateTime 4 187.96 cm 005036. 608 g 16 /min 98.6 [degF] 99 % 99 % 80 /min 116 mm[Hg] 71 mm[Hg] Not Available [facility] [employer] 4 13:29:45 Date Recorded Heart rate Respiratory rate Oxygen saturation Oxygen saturation in Arterial blood by Pulse oximetry Body temperature Systolic blood pressure Diastolic blood pressure Provider Name and Address Organization Details Last Updated DateTime 2 64 /min 16 /min 96 % 96 % 98.4 [degF] 116 mm[Hg] 79 mm[Hg] Prakash Willis MD [address] [facility],[address], [place], [address], [place] - [employer] 2 22:59:54 Date Recorded Oxygen saturation Oxygen [...] 753 Prakash Willis MD Main - [facility] [address] [place] [phone] 07/15/2021 22:59:29 12/07/2021 16:05:03 Blister [id number] R23.8 No red flag symptoms- Has close f/u with dermatolog y; may need drainage (likely has collection of blood in blister)- Does not wish to go to urgent care/ED for drainage at this time- Has close f/u with PCP as well- Advised to use bandage to wrap toe [id number] [facility]ash [facility] [address] [place] [phone] 03/09/2022 12:31:12 03/11/2022 10:44:07 Pain of right knee joint [id number] 32682 M25.561 Can bear weight. Cannot tolerate NSAIDS; will rx tylenol and encourage f/u with PCP in 1 week [id number] ROSY DUCKWORTH [facility] [address] [place] [phone] 09/22/2023 13:04:26 09/22/2023 21:08:47 Contact dermatitis [id number] L25.9 Evaluation in the field was performed by my school cleaner colleague, as noted above, I provided real-time [...] days ( first dose given by the school cleaner) -Clotrimaz ole cream 1 %-Red flags discussed [...] from the leg or any other concerns. [id number] Manoj Angela MD Main - [facility] [address] [place] [phone] 02/14/2024 13:29:41 02/14/2024 15:51:41 Indwelling urethral urinary catheter in situ [id number] Z96.0 Health Concerns Section Related Observation LastModified by Organization Detai ls LastModified Time None Recorded Concern Status LastModified by Organization Details LastModified Time None Recorded Advance Directives Directive None Recorded Payers Insurance Date Sequence Insurance Name Policy Number Policy Sims Covered Member ID Isms Member ID Guarantor Name 06/11/2023 1 [facility] - DOS PRIOR TO 2022 - DUAL ELIGIBLE (MEDICARE REPLACEMENT/ADV ANTAGE - HMO) Yousif Mcintosh [id number] Yousif Mcintosh 02/14/2024 1 [facility] [facility] - DOS ON OR AFTER 2022 - DUAL ELIGIBLE - [facility] OPTIONS AND ONE CARE (MEDICARE REPLACEMENT/ADV ANTAGE - HMO) Yousif Mcintosh [id number] Yousif Mcintosh Notes Date Note Type Note Provider Name and Address Organization Details Recorded Time 07/15/2021 text/html Per school cleaner an d patient:- patient states that he [...] drainage- no fevers Prakash Willis MD [address] [facility],[address], [place], [address], [place] - [employer] 07/15/2021 23:02:30 03/09/2022 text/html [facility] Nursing Assessment: Reason For Request: Pain in neck and right knee Chief Complaints: Pain PMH: CHF, Diabetes, Hypertension Allergies: No Known Comments: EXPORT CLERK calling for member to have [facility] visit for atraumatic L knee pain x 2 days no OTC's via Finnish int ................... ................... ................... ................... ................... ................... ................... ........ [employer] Note: Complaint of knee pain x2 days, pt twisted exiting a vehicle and felt a pop. Pt called looking for pain management, no deformities noted no swelling good color to the feet (+) pulses, pt is able to bare weight to transfer, [facility] contacted and ordered 500mg PO Tylenol and was administered, pt educated on RICE techniques and told to follow up with PCP if the pain doesn? t change. ................... ................... ................... ................... ................... ................... ................... ........ Disposition: Fulfilled Prakash Willis MD [address] [facility],[address], [place], [address], [employer] 03/09/2022 17:17:03 09/22/2023 text/html CRC Nurse Triage Notes (Clarissa Rae): Reason For Request: Pt's EXPORT CLERK reporting right leg edema with discharge going on 1 week, with some swelling, redness and discharge Chief Complaints: Edema, Cellulitis PMH: CHF, Diabetes, Hypertension Allergies: No Known Comments: Members EXPORT CLERK calling in to place a referral, member identified via name and . Member with probable cellulitis. Member with redness and edema to right lower leg for a week. Per EXPORT CLERK skin is dry and weeping, +pitting, denies warmth, no fever/chills, not on any diuretics. Member with hx of cellulitis. Member would like to be evaluated. [employer] POC Test Results from Jace Arroyo [facility] (13:12:53) pH: 7.406 pH units pCO2: 38.3 mmHg pO2: 27.2 mmHg Na: 141 mmol/L K: 4.7 mmol/L iCa: 1707 mmol/L Cl: 107 mmol/L TCO2: 23.6 mEq/L Hct: 40 % Hb: 13.7 g/dL Glu: 146 mg/dL Lac: 1.22 mmol/L Cr: 1.57 mg/dL BUN: 27 mg/dL A ................... ................... ................... ................... ................... ................... ................... ........ [employer] Note From Jace Arroyo: Pt co rash/bug [...] ................... ........ Disposition: Fulfilled ROSY DUCKWORTH MD [address] [place] [address],[address], [place], [phone], [employer] 09/22/2023 14:08:54 02/14/2024 text/html CRC Nurse Triage Notes (Josephine Lilly): Reason For Request: EXPORT CLERK [facility] calling in, pt experiencing pain near catheter site Chief Complaints: Urinary catheter/nephrostom y tube problems PMH: Congestive Heart Failure, Hypertension, Stroke, Epilepsy/Seizure Disorder, Diabetes Mellitus Type 2 Comments: Went to ER on Monday for urinary retention. New goldman catheter placed. Having pain at insertion site that started today with hematuria. Denies fever, low back pain, or abdominal pain. On coumadin. [employer] Organization Information for Lacho Andrews [employer] Legal Name: [employer]? Address: [address] [place] [id number], Operating System Designer: Kingsley GODOY No.: [id number] [employer] POC Test Results from Lacho Andrews - ALS Blood Glucose Measurement (::24) Blood Glucose: 181 mg/dL Urine Dipstick (::27) Urine leukocytes: + TAMMY Urine nitrites: - NIT Urine urobilinogen: - URO Urine protein: ++ PRO Urine pH: 6.5 pH Urine blood: +++ BLO Urine specific gravity: 1.010 SG Urine ketones: +/- KET Urine bilirubin: - CAITLIN Urine glucose: ++++ GLU ................... ................... ................... ................... ................... ................... ................... ........ [employer] Note From Lacho Andrews: [facility] makes pt contact, 79 yom w/ c/c of urinary catheter insertion site pain and hematuria.[facility] obtains pt consent. Vital signs are gathered and urine sample is obtained for testing and culture from catheter tubing. Urine analysis is performed and pt is physically assessed. He is conscious, alert, and oriented and answering all questions appropriately through his EXPORT CLERK, who is translating for the him. Pt [...] is noted in his catheter bag and EXPORT CLERK reports a strong ammonia smell to his urine when she emptied his bag this morning.[facility] contacts [facility] and discusses the above assessment and findings. [facility] orders urine to be sent to the lab. Pt is informed he will receive test results in a couple days. [facility] ensures pt and caregiver have no further questions or concerns. [facility] drops urine sample off at [facility] is clear. Report completed by KRISTAL Andrews [id number] [facility] Lab Orders: culture, urine: Performed ................... ................... ................... ................... ................... ................... ................... ........ [facility] Consulted: Manoj Angela ................... ................... ................... ................... ................... ................... ................... ........ Disposition: Fulfilled Manoj Angela MD [address] [place] [address],[address] [facility], [place], [address], [employer] 02/14/2024 14:39:55
--- OUTSIDE RECORDS SUMMARY | 2024-08-23 13:13 | XMS_ITS | Data Portability ---
Author Organization [facility] [employer] [facility], Main Office Address [address], [address] [place] [address] Care Team Providers Care Furrier Designer Name Role Phone [place] - 2ND [...] and Address Organization Details Recorded Time Gout 81472276 Active 2022 Mai Crespo NP [address] , [address], [place], [address], [email or web address] 3 14:12:09 Gastroesoph ageal reflux disease 468872075 Active 2022 Mai Crespo NP [address] , [address], [place], [address], [facility] [employer] 3 14:13:29 Vitamin deficiency 94225203 Active 2022 Mai Crespo NP [address], [address], [place], [address], [email or web address] 3 14:14:22 Closed fracture of greater trochanter of left femur 2189213388848 9101 Active 2022 Mai Crespo NP [address], [address], [place], [address], [email or web address] 3 14:16:18 Impaired cognition 395554153 Active 2022 Mai Crespo NP [address] , [address], [place], [address], [email or web address] 3 15:24:32 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 2022 Shamar Grijalva MD [address], [address], [place], [address], [email or web address] 3 08:54:24 Unsteady gait Active 2017 Shamar Grijalva MD [address], [place], [address], [email or web address] 8 10:50:39 History of cerebrovasc ular accident 066517719 Active 2017 Shamar Grijalva MD [address] , [address], [place], [address], [email or web address] 8 10:50:47 Atrial fibrillatio n 66063987 Active 2017 Shamar Grijalva MD [address], [place], [address], [email or web address] 8 10:50:53 Diabetes mellitus 57114727 Active 2017 Shamar Grijalva MD [address], [address], [place], [address], [email or web address] 8 10:50:58 Systolic heart failure 698858098 Active 2017 Shamar Grijalva MD [address], [address], [place], [address], [email or web address] 8 10:51:10 Essential hypertensio n 99749374 Active 2017 Shamar Grijalva MD [address], [address], [place], [address], [email or web address] 8 10:51:17 Hypopituita rism 37260186 Active 2017 Shamar Grijalva MD [address], [address], [place], [address], [email or web address] 8 10:51:44 Seizure disorder 009695678 Active 2017 Shamar Grijalva MD [address], [address], [place], [address], [email or web address] 8 10:53:04 Depressive disorder 95851956 Active 2017 Shamar Grijalva MD [address], [address], [place], [address], [email or web address] 8 10:53:11 Benign prostatic hyperplasia without outflow obstruction 566968331 Active 2017 Shamar Grijalva MD [address], [address], [place], [address], [email or web address] 8 11:00:59 Problem Notes None recorded. Medical Equipment None Reported. Allergies No known drug allergies Medications Not known to be on any medication Vitals Date Recorded Body weight Heart rate Respiratory rate Body temperature Oxygen saturation Oxygen saturation in Arterial blood by Pulse oximetry Systolic blood pressure Diastolic blood pressure Provider Name and Address Organization Details Last Updated DateTime 3 976313. 25 g 79 /min 18 /min 98.1 [degF] 95 % 95 % 123 mm[Hg] 80 mm[Hg] Mai Crespo NP [address], [address], [place], [address] , [email or web address] 3 13:51:28 Date Recorded Body weight Heart rate Respiratory rate Body temperature Oxygen saturation Oxygen saturation in Arterial blood by Pulse oximetry Systolic blood pressure Diastolic blood pressure Provider Name and Address Organization Details Last Updated DateTime 3 445164. 25 g 80 /min 18 /min 98.5 [degF] 97 % 97 % 140 mm[Hg] 84 mm[Hg] Mai Crespo NP [address], [address], [place], [address], [email or web address] 3 15:02:42 Date Recorded Body weight Heart rate Respiratory rate Body temperature Oxygen saturation Oxygen saturation in Arterial blood by Pulse oximetry Systolic blood pressure Diastolic blood pressure Provider Name and Address Organization Details Last Updated DateTime 3 516284. 25 g 85 /min 18 /min 98.6 [degF] 97 % 97 % 134 mm[Hg] 84 mm[Hg] Mai Crespo NP [address], [address], [place], [address], [email or web address] 3 14:59:33 Date Recorded Body weight Heart rate Respiratory rate Body temperature Oxygen saturation Oxygen saturation in Arterial blood by Pulse oximetry Systolic blood pressure Diastolic blood pressure Provider Name and Address Organization Details Last Updated DateTime 3 164909. 25 g 77 /min 18 /min 98.3 [degF] 96 % 96 % 138 mm[Hg] 72 mm[Hg] Mai Crespo NP [address], [address], [place], [address], [email or web address] 3 09:15:29 Date Recorded Systolic blood pressure Diastolic blood pressure Provider Name and Address Organization Details Last Updated DateTime 02/22/2023 138 mm[Hg] 79 mm[Hg] Shamar Grijalva MD [address], [address], [place], [address], [email or web address] 02/22/2023 08:37:55 Social History Question Answer Notes LastModified by Organizat ion Details LastModified Time Tobacco Smoking Status Never Smoker Shamar Grijalva MD [address], [address], [place], [address], [email or web address] 04/24/2017 11:08:45 Do You Have An Advance Directive? Yes Full Code Information not available 04/24/2017 What Is Your Level Of Alcohol Consumption? None Information not available 04/24/2017 How Much Tobacco Do You Chew? None Information not available 04/24/2017 What Is Your Code Status? Full Code Information not available 02/15/2023 Do You Have A Medical Power Of Software Configuration Analyst? No Information not available 04/24/2017 What Was [...] PF 03/30/2023 completed Sharon camilo [place] - [facility] 06/15/2023 12:40:58 Past Encounters Encounter ID Performer Location Encounter Start Date Encounter Closed Date Diagnosis/Indication Diagnosis SNOMED-CT Code Diagnosis ICD10 Code Diagnosis Note [id number] Shamar Grijalva MD [facility] [address] 04/24/2017 10:46:11 05/03/2017 13:22:45 Unsteady gait 142480152 R26.81 see HPIgait instabilit y and generalize d weakness admit for continued care. 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 History of cerebrovascular accident 931378630 Z86.73 see above Atrial fibrillation 4943 6004 I48.0 maintained on coumadinmo nitor and titrate dosemetopr olol for rate control Diabetes mellitus 139149 09 E11.9 metformin 500 mg qdmonitor blood gluocse Systolic h eart failure 137641558 I50.22 carrying dxnot currently on diureticmo nitor fluid status and respirator y function Essential hypertension 30772550 I10 norvasc discontinu ed in hospital maintained onmetoprol ol 12.5 mg qdmonitor bp and labs Hypopituitarism 09620333 E23.0 hx of added to PMHcortef 10 mg qam 5 mg qpm Seizure disorder 2112262 02 G40.89 keppra 750 mg bidmonitor for activity Depressive disorder 3548 9007 F32.89 prozac 20 mg qdmonitor mood Benign pro static hyperplasia without outflow obstruction 340641973 N40.0 flomax 0[place]4 [place] [id number] JOCELYN Ramon [facility] [address] [address] 04/26/2017 11:47:39 05/03/2017 13:25:43 Low back pain 408902938 M54.5 Secondary to mechanical fallCurren tly on oxycodone 5 mg Q6h prn-will increase to 5-10 mg Q4h prn and monitorPat ient agrees to work with therapy if pain can be better controlled [id number] Shamar Grijalva MD [facility] [address] [place] [address] 05/01/2017 10:19:25 05/03/2017 13:36:42 Unsteady gait 946770406 R26.81 improved with PT OT Atrial fibrillation 4943 6004 I48.0 maintained on coumadinmo nitor and titrate doserate controlled on metorprolo lremains in sinus rhythm Diabetes mellitus 578347 09 E11.9 metformin 500 mg qdcontinue Essential hypertension 69467381 I10 norvasc discontinu ed in hospital maintained onmetoprol ol 12.5 mg qdmonitor bp and labs Hypopituitarism 61411545 E23.0 hx of added to PMHcortef 10 mg qam 5 mg qpm Seizure disorder 7771944 02 G40.89 keppra 750 mg bidcontinu e Depressive disorder 3548 9007 F32.89 prozac 20 mg qdcontinue Benign pro static hyperplasia without outflow obstruction 583456209 N40.0 flomax 0.4 mg qdcontinue [id number] Mai Crespo NP [facility] [address] [address] 02/15/2023 13:50:23 02/21/2023 13:17:35 History of cerebrovascular accident 807155348 Z86.73 hx of cva with right sided weaknessas pirin 81 mg po dailyon ac see belownow non weight bearing to left sidemonito r Atrial fibrillation 4943 6004 I48.0 maintained on coumadinwa s on 2.5mg alt with 5 mg every other daymonitor and titrate dosemetopr olol for rate control Diabetes mellitus 352647 09 E11.9 metformin 500 mg qdmonitor blood glucose Systolic h eart failure 123667400 I50.22 carrying dxnot currently on diureticmo nitor fluid status and respirator y function Essential hypertension 85875435 I10 amlodipine 2.5 mg po dailymetop rolol succ 12.5 mg qdmonitor bp and labs Hypopituitarism 17518978 E23.0 hx of added to PMHcortef 10 mg qam Seizure disorder 5421537 02 G40.89 keppra 750 mg bidmonitor for activity Depressive disorder 3548 9007 F32.89 prozac 20 mg qdmirtazap ine 15 mg po dailymonit or mood Benign pro static hyperplasia without outflow obstruction 349714826 N40.0 flomax 0.4 mg qdmyrbetri q 25 mg po dailymonit or for sx Hyperlipidemia 17425485 E78.5 atorvastat in 40 mg po bedtimemon itor Gout 07769750 M10.9 allopurino l 100 mg po dailymonit or Gastroesop hageal reflux disease 301110183 K21.9 famotidine 20 mg po dailymonit or Vitamin deficiency 35008 002 E56.9 magnesium oxide 250mg tidferrous sulfate 325 mg po dailymonit or Closed fra cture of greater trochanter of left femur 2009544766 9540444 S72.115A non surgical per orthonon weight bearing to left sideokay to use kimberly lift if needed with careful transfer prnair loss bariatric mattress due to non weight bearing status of left and right weak cva11/1add lidocaine patch to left hip topically dailywill need fu with orthooxyco done 5 mg po q 6 hours prn paintyl prnPT OTon ac coumadin Impaired cognition 85688 6002 R41.89 scores 13/30 for moderate cognitive impairment invoke today, with son as decision makermonit or [id number] [facility] [address] [address] 02/22/2023 08:30:44 02/24/2023 15:15:57 Closed fracture of greater trochanter of left femur 0633047275 8357312 S72.115A see HPIleft greater trochanter ic femur fx. Eval by ortho with no surgical interventi on indicated at that time to remains NWB till cleared by orthoPT OT eval and treatmonit or fall risk and pain controlupd ate ortho with concerns History of cerebrovascular accident 037952466 Z86.73 baseline right sided weakness post prior cvaPT TO Eval and treat Atrial fibrillation 4943 6004 I48.0 coumadin monitor and titrate following INRmetopro lol 12.5 mg qdmonitor for rate control Diabetes mellitus 819357 09 E11.9 metformin 500 mg qdmonitor blood glucose and need to adjust Systolic h eart failure 700220611 I50.22 carrying dxcurrentl y not on diureticmo nitor fluid status and respirator y function Essential hypertension 49108448 I10 norvasc 2.5 mg po qdmetoprol ol 12.5 mg qdmonitor bp and labs Seizure disorder 7263656 02 G40.89 keppra 750 mg bidmonitor for activity Benign pro static hyperplasia without outflow obstruction 180002643 N40.0 flomax 0.4 mg qdmyrbetri q 25 mg po qdmonitor for sx relief Hyperlipidemia 72885069 E78.2 lipitor 40 mg qdcontinue d Gastroesop hageal reflux disease 795334660 K21.9 famotidine 20 mg po qdmonitor for sx relief Impaired cognition 65126 6002 R41.89 baseline cognitive impairment unable to make own decisionsi nvoke HCPcontinu e supportive caremonito r need for increased services in community Myelolipom a of adrenal gland 163171575 D35.01 see HPIInciden filippo finding of probable myelolipom a right adrenal lesionrepe at CT in 3-6 monthsmoni tor need for biospycoul d refer to [place] [id number] Mai Cerspo NP [facility] [address] [address] 03/02/2023 14:58:01 03/07/2023 07:54:51 Closed fracture of greater trochanter of left femur 7343000156 8551000 S72.115A non surgical per orthonon weight bearing [...] OTon ac coumadin History of cerebrovascular accident 490488172 Z86.73 hx of cva with right sided weaknessas pirin 81 mg po dailyon ac see belownow non weight bearing to left sidemonito r Atrial fibrillation 4943 6004 I48.0 maintained on coumadinmo nitor inr/pt on Mondays and prncont on regular therapy 2.5mg alt with 5 mg every other daymonitor and titrate dosemetopr olol for rate control Diabetes mellitus 327862 09 E11.9 metformin 500 mg qdmonitor blood glucose Systolic h eart failure 079401310 I50.22 carrying dxnot currently on diureticmo nitor fluid status and respirator y function Essential hypertension 07680875 I10 amlodipine 2.5 mg po dailymetop rolol succ 12.5 mg qdmonitor bp and labs Hypopituitarism 39940769 E23.0 hx of added to PMHcortef 10 mg qam Seizure disorder 8383205 02 G40.89 keppra 750 mg bidmonitor for activity Depressive disorder 3548 9007 F32.89 prozac 20 mg qdmirtazap ine 15 mg po dailymonit or mood Benign pro static hyperplasia without outflow obstruction 025517857 N40.0 flomax 0.4 mg qdmyrbetri q 25 mg po dailyconsi arik dc myrbetriq if retention occursmoni tor for sx Impaired cognition 11111 6002 R41.89 scores 13/30 for moderate cognitive impairment invoked son as decision makermonit or [id number] Mai Crespo NP [facility] [address] [address] 03/10/2023 14:58:06 03/15/2023 09:02:40 Closed fracture of greater trochanter of left femur 3508832289 8916361 S72.115A non surgical per orthonon weight bearing [...] OTon ac coumadin History of cerebrovascular accident 357118194 Z86.73 hx of cva with right sided [...] dosemetopr olol for rate control Diabetes mellitus 058171 09 E11.9 metformin 500 mg qdmonitor blood glucose Systolic h eart failure 551733703 I50.22 carrying dxnot currently on diureticmo nitor fluid status and respirator y function Essential hypertension 59371420 I10 amlodipine 2.5 mg po dailymetop rolol succ 12.5 mg qdmonitor bp and labs Seizure disorder 5956504 02 G40.89 keppra 750 mg bidmonitor for activity Depressive disorder 3548 9007 F32.89 prozac 20 mg qdmirtazap ine 15 mg po dailymonit or mood Benign pro static hyperplasia without outflow obstruction 416316712 N40.0 flomax 0.4 mg qdmyrbetri q 25 mg po dailyconsi arik dc myrbetriq if retention occursmoni tor for sx Impaired cognition 55099 6002 R41.89 scores 13/30 for moderate cognitive impairment invoked son as decision makermonit or [id number] Mai Crespo NP [facility] [address] 03/15/2023 09:03:01 03/20/2023 10:39:58 Closed fracture of greater trochanter of left femur 1835095258 0487702 S72.115A non surgical per orthonon weight bearing [...] at baselinefu with pcp outpt Diabetes mellitus 318351 09 E11.9 metformin 500 mg qdmonitor blood glucose History of cerebrovascular accident 401249228 Z86.73 hx of cva with right sided weaknessas pirin 81 mg po dailyon ac see below with coumadinno n weight bearing to left side, however pt using left leg at timesmonit or Atrial fibrillation 4943 6004 I48.0 maintained on coumadinco nt on regular therapy 2.5mg alt with 5 mg every other daymonitor and titrate dose per outpt pcpcont metoprolol for rate controllev els here above Systolic h eart failure 347510303 I50.22 carrying dxnot currently on diureticmo nitor fluid status and respirator y function outpt Essential hypertension 63602051 I10 stable here on:amlodip ine 2.5 mg po dailymetop rolol succ 12.5 mg qdmonitor outpt with pcp Seizure disorder 5385073 02 G40.89 keppra 750 mg bidmonitor for activity outpt Depressive disorder 3548 9007 F32.89 prozac 20 mg qdmirtazap ine 15 mg po dailymonit or mood outpt with pcppsych outpt prn Benign pro static hyperplasia without outflow obstruction 788867649 N40.0 flomax 0.4 mg qdmyrbetri q 25 mg po dailyconsi arik dc myrbetriq if retention occursmoni tor for sx outpt with pcp Impaired cognition 64033 6002 R41.89 scores 13/30 for moderate cognitive impairment on admissioni nvoked son as decision makermonit or outpt with family and [facility] Health Concerns Section Related Observation LastModified by Organization Detai ls LastModified Time None Recorded Concern Status LastModified by Organization Details LastModified Time None Recorded Advance Directives Directive Y: Full code Payers Encounter Date Sequence Insurance Name Policy Number Policy Sims Covered Member ID Sims Member ID Guarantor Name 02/15/2023 1 [facility] - DOS ON OR AFTER 2022 - MEDIC[place]AC[place]/ADV ANTAGE - PPO) Yousif Nailss [id number] Yousif Nailss 02/15/2023 2 [place] [facility] Yousif Mcintosh [id number] Suseunice Mcintosh 02/22/2023 1 [facility] - DOS ON OR AFTER 2022 - [place]V ANTAGE - PPO) Yousif Nailss [id number] Suseunice Mcintosh 02/22/2023 2 [place] [facility] Yousif Mcintosh [id number] Suseunice Velazquezgos 03/02/2023 1 [facility] - DOS ON OR AFTER 2022 - [place]V ANT[place] - [place]PO) Yousif Nailss [id number] Suseunice Mcintosh 03/02/2023 2 [place] [facility] Yousif Nailss [id number] Yousif Velazquezgos 03/10/2023 1 [facility] - DOS ON OR AFTER 2022 - [place]/ADV ANTAGE - [place]PO) Yousif Nailss [id number] Yousif Velazquezgos 03/10/2023 2 [place] [facility] Yousif Nailss [id number] Yousif Velazquezgos 03/15/2023 1 [facility] - DOS ON OR AFTER 2022 - [place]/ADV ANTAGE - PPO) Yousif Nailss [id number] Yousif Velazquezgos 03/15/2023 2 [place] [facility] Yousif Nailss [id number] Yousif Mcintosh Notes Date Note Type Note [...] lateral ventricle. On exam, he is mostly [place] speaking and per diem interpreter used. He states the oxycodone helps [...] to sign document Mai Crespo NP [address], [address], [place], [address], [email or web address] 02/17/2023 16:46:18 02/23/20 23 text/htm l [...] finding of probable myelolipoma right adrenal lesion [place] speaking per diem interpreter present PMH significant forgerdimpaired cognitionbphdepressionseizure dxhypopituitarismchfdma fibhx CVAhtngait instability admit to facility for continued care and therapy Shamar Grijalva MD [address], [address], [place], [address], [email or web address] 02/22/2023 09:05:01 03/02/20 23 text/htm l [...] for now. On exam, he is mostly [place] speaking and per diem interpreter used. He is transferring to toilet with help today. He reports the oxycodone and lidocaine patch are helping with the pain. MOLST: awaiting son to sign document Mai Crespo NP [address], [address], [place], [address], [email or web address] 03/02/2023 15:15:55 03/10/20 23 text/htm l [...] and wnl. On exam, he is mostly [place] speaking and per diem interpreter used. He denies any concerns today. He is motoring around in his wheelchair today. Pain controlled. MOLST: awaiting son to sign document Mai Crespo, XIAO [address], [address], [place], [address], [employer] 03/10/2023 15:06:40 03/15/20 23 text/htm l 72 yo male seen seen for a discharge visit today. He initally presented to [facility] on 02/14 with hx of left MCA [...] mild dilation of left lateral ventricle. At [facility] Yousif continues to do well working with [...] pain control. On exam, he is mostly [place] speaking and per diem interpreter used. He denies any concerns today and states his pain is controlled. He is excited to go home and CHASSIS WIRER is supposed to pick him up. MOLST: awaiting son to sign document- still not addressed Mai Crespo, XIAO [address] [place] [address], [address], [place], [address], [facility] - [employer] 03/15/2023 09:47:09
--- OUTSIDE RECORDS SUMMARY | 2024-08-23 13:13 | XMS_ITS | Clinical Summary ---
Author Organization [facility] Address [address] [place] [address] Phone Care Team Providers Care Medical Receptionist Assistant Name Role Phone Poonam Hernandez MD Primary Care Provider [phone] Allergies Active Allergy Reactions Criticality Noted Date [...] patient's age to complete this topic Insurance [facility] [place] [id number] [facility] [place] [id number] Care Teams Medical Receptionist Assistant Relationship Specialty Start Date End Date Poonam Hernandez MD [address] [place], [place] PCP - General Internal Medicine 04/14/21
[2024-08-23 13:22] LABS: Prothrombin Time Whole Bld POC 31.5 sec (11.1-13.5); ~PT, ~INR - Anti Coag Clinic 2.6 (0.9-1.1)
--- NOTE | 2024-08-23 14:19 | MHC.OFFVISCO ---
Intake Intake Visit Reasons: Anticoagulation Allergies No Known Allergies Allergy (Verified 08/23/24 13:10) Medication List - Last Reconciled 08/23/24 by Chhaya Patterson RN [adult diapers pull-ups As directed] allopurinol 100 mg PO DAILY atorvastatin 40 mg PO BEDTIME 90 days [bed side table As directed] blood sugar diagnostic (YeahkaTouch Ultra Test strips) test once per day blood-glucose meter (Caring.comuch Ultra2 Meter) test once per day commode (bedside commode) As directed empagliflozin (Jardiance) 10 mg PO DAILY 90 days famotidine 20 mg PO DAILY PRN 30 days ferrous sulfate 325 mg PO DAILY 60 days finasteride 5 mg PO DAILY 90 days fluoxetine 20 mg PO DAILY 90 days [gloves As directed] hydrocortisone (Cortef) 10 mg (2 x 5 mg) PO DAILY [incontinent wipes As directed] lancets (Kuldat DelOutSystems Safety Lancet) test once per day [Legs rests for Dynaride 19 TWC non elevating Use daily prn] levetiracetam 750 mg PO BID 3 months magnesium oxide 400 mg PO DAILY 90 days metformin 500 mg PO DAILY metoprolol succinate ER 12.5 mg (1/2 x 25 mg) PO DAILY mirtazapine 15 mg PO BEDTIME 3 months nebulizers (VixOne Nebulizer-Adult Mask) As directed- tube like [power wheelchair As directed] tamsulosin 0.4 mg PO DAILY 3 months underpads (Bed Underpads) As directed warfarin 5 mg See Protocol PO MOFR warfarin 2.5 mg See Protocol PO SUTUWETHSA [wipes As directed] Nursing Note Pt to [facility] with his COORDINATE MEASURING EQUIPMENT OPERATOR via w/c for annual Anticoag visit He is s/p prostate bx and started on biculatmide 50mg q am. ( can raise the INR-being monitored weekly for now) *He is to have CT scan or Pet Scan for staging at [facility] but COORDINATE MEASURING EQUIPMENT OPERATOR stated [facility] said his insurance wont cover it - will send this info to Dr Babb-perhaps needs prior Auth or something INR: 2.6 in therapeutic range Medications and supplements reviewed and list updated - he is now on jaurdiance and metformin decreased to 1 dose daily and he has lost some weight Denies any signs and symptoms of bleeding or clotting. *He does have bruising on his arms which is the norm' for him Bleeding, bruising, clotting discussed Nutritional guidance given - eat a mix of fruits and vegetables - try to have some greens weekly that you like ( likes avocado and kiwii) Dose: keep same dose this week 5mg fridays/ 2.5mg x 6 days then 2.5mg daily due to med changes and check INR 1 week F/U INR: 08/30/24 or per availability of [facility] Patient and COORDINATE MEASURING EQUIPMENT OPERATOR verbalizes understanding of instructions given Anti-Coag Initial Assessment Social Hx Patient Tobacco Use Status: Never used Tobacco alcohol intake: never Alcohol intake frequency: former alcohol drinker Questionnaires HAS-BLED Does the patient had uncontrolled Hypertension?: No Does the patient have renal disease?: Yes Does the patient have liver disease?: No Does the patient have a history of stroke?: Yes Has the patient had major bleeding or predisposition to bleeding?: Yes Does the patient have labile INRs?: No Is the patient over 65 years of age?: Yes Is the patient on medications that gives them a predisposition to bleeding?: Yes Does the patient use alcohol?: No HAS-BLED Score: 5 CHADSVASC Age: 75 or over Gender: Male Does the patient have a history of CHF?: Yes Does the patient have a history of Hypertension?: Yes Does the patient have a history of Stroke/TIA/Thromboembolism?: Yes Does the patient have a history of Vascular Disease (prior SC, PAD or aortic plaque)?: Yes Does the patient have a history of Diabetes?: Yes CHADS VACS Score: 8 Latonya Prediction Score Rsk VTE Active Cancer: Yes Previous VTE, excluding superficial vein thrombosis: No Reduced mobility: Yes Already known Thrombophilic Condition: No With-in last month Trauma and/or Surgery: No Elderly 70 year or older: Yes Heart and/or Respiratory Failure: Yes Acute Myocardial infarction and/or Ischemic Stroke: Yes Acute Infection and/or Rheumatologic Disorder: No Obesity (BMI 30 or greater): Yes Ongoing Hormonal Treatment: No Score: 10 Latonya Score less than 4; Low Risk of VTE Latonya Score 4 or greater; High Risk of VTE Coding Level of Care Code Est Patient Level 1 Diagnoses Current use of anticoagulant therapy Z79.01 Results AMB INR Fingerstick AMB INR Fingerstick 2.6 Last Edit by Chhaya Patterson RN on 08/23/24 13:25 manual entry Assessment & Plan Assessment & Plan (1) Current use of anticoagulant therapy: Code(s): Z79.01 - jail (current) use of anticoagulants Category: Medical
== END 2024-08-23 14:32 | disposition home or self-care (01) ==
LOC: HO.ACS 13:09
PROVIDERS: PCP Internal Medicine; Visit Provider Internal Medicine Medical Oncology
DX: Z79.01 Long term (current) use of anticoagulants (principal)

== ENCOUNTER → 2024-08-23 13:09 | Outpatient (BNVA) | payer OTHER, SELFPAY | PROVIDERS: PCP Internal Medicine; Visit Provider Internal Medicine Medical Oncology | DX: I48.0 Paroxysmal atrial fibrillation (principal); Z86.73 Personal history of transient ischemic attack (TIA), and cerebral infarction without residual deficits; Z79.01 Long term (current) use of anticoagulants; Z51.81 Encounter for therapeutic drug level monitoring | CPT/HCPCS: 85610; 99211 ==

== ENCOUNTER → 2024-08-28 23:59 | Outpatient (BNV) | payer OTHER, SELFPAY | PROVIDERS: PCP Internal Medicine; Visit Provider Internal Medicine | DX: I69.00 Unspecified sequelae of nontraumatic subarachnoid hemorrhage (principal); R26.81 Unsteadiness on feet; M54.50 Low back pain, unspecified | CPT/HCPCS: G0179 ==

== ENCOUNTER 2024-09-04 12:40 | Outpatient (REF) | payer OTHER, SELFPAY ==
--- OUTSIDE RECORDS SUMMARY | 2024-09-04 14:08 | XMS_ITS | Clinical Summary ---
Author Organization [employer] Address [address] [place] [address] [address] [place] [address] Care Team Providers Care Correctional Supervising Cook Name Role Phone Unavailable Primary Care Provider [...]
--- OUTSIDE RECORDS SUMMARY | 2024-09-04 14:08 | XMS_ITS | Clinical Summary ---
Author Organization [facility] Address [address] [place] [address] Phone Care Team Providers Care Restaurant Host Name Role Phone Poonam Hernandez MD Primary Care Provider [phone] Allergies Active Allergy Reactions Criticality Noted Date [...] patient's age to complete this topic Insurance [facility] [place] [id number] [facility] [place] [id number] Care Teams Restaurant Host Relationship Specialty Start Date End Date Poonam Hernandez MD [address] [place], [place] PCP - General Internal Medicine 04/14/21
[2024-09-04 16:50] LABS: Urine Cytology See Pathology rpt
== END 2024-09-04 12:41 | disposition home or self-care (01) ==
LOC: HO.LAB 12:40
PROVIDERS: PCP Internal Medicine; Visit Provider Urology
DX: C61 Malignant neoplasm of prostate (principal); R31.0 Gross hematuria; Z19.1 Hormone sensitive malignancy status; Z13.9 Encounter for screening, unspecified
CPT/HCPCS: 51798; 81003; 88112; 99212

== ENCOUNTER 2024-09-04 12:40 | Outpatient (AMB) | payer OTHER, SELFPAY ==
--- NOTE | 2024-09-04 13:14 | A.OFFVIS_ITS ---
Intake Visit Reasons: Greenlight, follow up Intake Note: Patient is present for [facility]ENLIGHT F/U Urology Medication:FINASTERIDE,TAMSULOSIN,ALLOPURINOL Antibiotic Allergy:NONE Blood Thinner:WARFARIN TODAY'S PVR:19ML'S Service Inspector Required: No Allergies No Known Allergies Allergy (Verified 09/04/24 13:18) HPI Comments Details: Yousif is a [place]ese-speaking male. He is a patient of Dr. Kent. 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 Prostate cancer - grade group 5, high volume 02/26 cores - locally advanced Initial PSA 19.4 [place] score: 10 (5+5) (transurethral resection) 9 (5+4) (left base lateral and medial, left mid lateral and medial, left apex lateral and medial, and right mid medial), 9 (4+5) (right base lateral and medial, and right apex medial) 8 (4+4) (right mid lateral) Grade group: 5 and 4 Tumor quantitation: Number cores positive: 14 (excluding part M) Total number of cores: 15 % of tissue involved: 60% (including part M) Periprostatic fat inv.: Present Seminal vesicle inv.: Not identified Perineural inv.: Present Lymphatic and/or vascular invasion: Not identified Elevated PSA PSA 19.4 Plan biopsy at time of outlet procedure Lower urinary tract symptoms GreenLight laser 08/09 Progressive Prior history of retention with Gamez catheter PVR was 400 cc in emergency room Recent CT showing significantly enlarged prostate with bladder protuberant Current medications include finasteride and tamsulosin Background anticoagulation with diabetes - on Jardiance which is disrupting urination [facility] Medical History (Updated 08/07/24 @ 14:52 by Ciro Mariee MD) Renal insufficiency CKD (chronic kidney disease) Physical exam Iron deficiency anemia Psoriasis Stroke Seizures Dyslipidemia BPH (benign prostatic hyperplasia) Hypovitaminosis D Gout Abnormal laboratory test Hypertension Diabetes Surgical History History of open reduction and internal fixation (ORIF) procedure History of kidney stones Family History Mother Heart problem Father Bone cancer Social History Household Members: None 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 Housing: Apartment Are you a primary physician primary care sports medicine to a significant other at home: No Do you presently have visiting nurse or other home services: Yes Unable to assess alcohol history related to: Unknown Alcohol intake: never Comment: Oxycodone PO Patient Tobacco Use Status: Never used Tobacco e-Cigarette/Vaping Use: Never Used Second Hand Smoke Exposure: No Advance Directives Date on File: 12/20/11 service: No Current occupational status: disabled Cognitive needs: Yes (wheelchair) Hearing needs: No Vision needs: No Review of Systems Const Denies chills and Denies fever(s) Card Reports no additional complaints and Denies syncope Resp Denies cough GI Denies abdominal pain and Denies heartburn Reports as per HPI and Denies change in libido Neuro Denies syncope Psych Denies change in libido Endo Denies change in libido Physical Exam Const General: cooperative, healthy appearing, comfortable and no acute distress Orientation/consciousness: patient oriented x3 HEENT Face and sinus: Yes normal facial exam Mouth: moist mucous membranes Neck Neck: Yes normal visual inspection, Yes full ROM and Yes trachea midline Chest Chest palpation & inspection: normal inspection of the chest Resp Effort & Inspection: normal respiratory effort, able to speak in complete sentences and no respiratory distress GI Inspection: Yes normal to inspection Back/Spine/Pelvis Cervical Spine: normal cervical lordosis Thoracic/Lumbar Spine: thoracic and lumbar spine normal to inspection Skin General skin exam: no rashes or lesions noted Neuro General: patient oriented x3, gait normal, tone normal and moves all extremities Extrem General: Yes normal to inspection and Yes capillary refill normal Office Procedures Post Void Residual Post Residual Void Post Void Residual (PVR): 19 [id number] Void Residual by ultrasound Results AMB Urinalysis, Automated UA Leukoctes 70 Saira/uL Last Edit by DON Ramirez on 09/04/24 16:02 UA Nitrite Negative Last Edit by DON Ramirez on 09/04/24 16:02 UA Urobilinogen 3.5 mg/dL Last Edit by DON Ramirez on 09/04/24 16:0 2 UA Protein 15 mg/dL Last Edit by DON Ramirez on 09/04/24 16:02 UA pH 5.5 Last Edit by DON Ramirez on 09/04/24 16:02 UA Blood 80 Cameron/uL Last Edit by DON Ramirez on 09/04/24 16:02 UA Specific [place] 1.015 Last Edit by DON Ramirez on 09/04/24 16: 02 UA Ketone Negative Last Edit by DON Ramirez on 09/04/24 16:02 UA Bilirubin 0 mg/dL Last Edit by DON Ramirez on 09/04/24 16:02 UA Glucose 60 mg/dL Last Edit by DON Ramirez on 09/04/24 16:02 Results Reviewed Results Reviewed: Laboratory Last Values Urine pH (Auto) 5.5 09/04/24 16:02 Specific [place] (Auto) 1.015 09/04/24 16:02 Urine Protein (Auto) 15 mg/dL 09/04/24 16:02 Glucose (UA)(Auto) 60 mg/dL 09/04/24 16:02 Urine Ketones (Auto) Negative 09/04/24 16:02 Urine Blood (Auto) 80 Cameron/uL 09/04/24 16:02 Urine Nitrite (Auto) Negative 09/04/24 16:02 Urine Bilirubin (Auto) 0 mg/dL 09/04/24 16:02 Urine Urobilinogen (Auto) 3.5 mg/dL 09/04/24 16:02 Leukocyte Esterase (Auto) 70 Saira/uL 09/04/24 16:02 Assessment & Plan Assessment & Plan (1) Hormone sensitive prostate cancer: Code(s): C61 - Malignant neoplasm of prostate; Z19.1 - Hormone sensitive malignancy status Category: Medical Plan Check labs three-month PET-CT Orders: Orders Testosterone, Total 2 Months C61 - Malignant neoplasm of prostate, Z19.1 - Hormone sensitive malignancy status PSA,Total (Free>4and<10) 2 Months C61 - Malignant neoplasm of prostate, Z19.1 - Hormone sensitive malignancy status AMB Urinalysis Automated Today Z13.9 - Encounter for screening, unspecified Urine Cytology Today R31.0 - Gross hematuria PET CT fusion skull to thigh Today C61 - Malignant neoplasm of prostate, Z19.1 - Hormone sensitive malignancy status Patient Instructions: This note is constructed using voice recognition software. While every effort has been made to ensure accuracy shaving machine operator errors may have been included. Imaging studies, laboratory and physical exam results were discussed and reviewed in detail. No major barriers to patient understanding were identified. An opportunity to ask questions regarding the treatment plan was provided. All questions were answered. The patient expressed understanding and agreement with the above treatment plan. The patient is aware they should contact our office by phone for worsening of their current condition or the appearance of new urologic symptoms. Compliance is encouraged with any medications and followup testing that is ordered. It is a privilege to participate in the urologic care of your patient. If you have any questions or concerns regarding treatment for the above conditions, or other urologic issues, please do not hesitate to contact me. The office telephone contact is [phone]. Sincerely, Dr Ciro Mariee MD, [facility] - Urology Compassionate Specialist Care for the Genitourinary System Coding Level of Care Code Est Pt Level 3 (05463) Complex EM visit Add On G2211 Diagnoses Hormone sensitive prostate cancer C61; Z19.1 CPT Codes Post Residual Void - PVR CPT Code: 13434-[id number] Void Residual by ultrasound ([id number])
--- OUTSIDE RECORDS SUMMARY | 2024-09-04 13:23 | XMS_ITS | Data Portability ---
Author Organization [facility] [employer] [facility], Main Office Address [address] [place] [address] Care Team Providers Care Plaster Machine Tender Name Role Phone [place] - 2ND [...] and Address Organization Details Recorded Time Gout 62074111 Active 2022 Mai Crespo NP [address] , [address], [place], [address], [facility] 3 14:12:09 Gastroesoph ageal reflux disease 533371135 Active 2022 Mai Crespo NP [address] , [address], [place], [address], [facility] 3 14:13:29 Vitamin deficiency 82692978 Active 2022 Mai Crespo NP [address], [address], [place], [address], [facility] 3 14:14:22 Closed fracture of greater trochanter of left femur 0216561298512 9101 Active 2022 Mai Crespo NP [address], [address], [place], [address], [facility] 3 14:16:18 Impaired cognition 653291210 Active 2022 Mai Crespo NP [address], [place], [address], [facility] 3 15:24:32 Myelolipoma of adrenal gland 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 Active 2022 Shamar Grijalva MD [address], [address], [place], [address], [facility] 3 08:54:24 Unsteady gait Active 2017 Shamar Grijalva MD [address], [place], [address], [facility] 8 10:50:39 History of cerebrovasc ular accident 252747294 Active 2017 Shamar Grijalva MD [address], [place], [address], [facility] 8 10:50:47 Atrial fibrillatio n 16479268 Active 2017 Shamar Grijalva MD [address], [address], [place], [address], [facility] 8 10:50:53 Diabetes mellitus 80061985 Active 2017 Shamar Grijalva MD [address], [address], [place], [address], [facility] 8 10:50:58 Systolic heart failure 182057065 Active 2017 Shamar Grijalva MD [address], [address], [place], [address], [facility] 8 10:51:10 Essential hypertensio n 05018232 Active 2017 Shamar Grijalva MD [address], [address], [place], [address], [facility] 8 10:51:17 Hypopituita rism 78384305 Active 2017 Shamar Grijalva MD [address], [place], [address], [facility] 8 10:51:44 Seizure disorder 431884759 Active 2017 Shamar Grijalva MD [address], [address], [place], [address], [facility] 8 10:53:04 Depressive disorder 68745686 Active 2017 Shamar Grijalva MD [address], [address], [place], [address], [facility] 8 10:53:11 Benign prostatic hyperplasia without outflow obstruction 550204452 Active 2017 Shamar Grijalva MD [address], [address], [place], [address], [facility] 8 11:00:59 Problem Notes None recorded. Medical Equipment None Reported. Allergies No known drug allergies Medications Not known to be on any medication Vitals Date Recorded Body weight Heart rate Respiratory rate Body temperature Oxygen saturation Oxygen saturation in Arterial blood by Pulse oximetry Systolic blood pressure Diastolic blood pressure Provider Name and Address Organization Details Last Updated DateTime 3 489538. 25 g 79 /min 18 /min 98.1 [degF] 95 % 95 % 123 mm[Hg] 80 mm[Hg] Mai Crespo NP [address], [address], [place], [address] , [facility] 3 13:51:28 Date Recorded Body weight Heart rate Respiratory rate Body temperature Oxygen saturation Oxygen saturation in Arterial blood by Pulse oximetry Systolic blood pressure Diastolic blood pressure Provider Name and Address Organization Details Last Updated DateTime 3 975051. 25 g 80 /min 18 /min 98.5 [degF] 97 % 97 % 140 mm[Hg] 84 mm[Hg] Mai Crespo NP [address], [address], [place], [address], [facility] 3 15:02:42 Date Recorded Body weight Heart rate Respiratory rate Body temperature Oxygen saturation Oxygen saturation in Arterial blood by Pulse oximetry Systolic blood pressure Diastolic blood pressure Provider Name and Address Organization Details Last Updated DateTime 3 111957. 25 g 85 /min 18 /min 98.6 [degF] 97 % 97 % 134 mm[Hg] 84 mm[Hg] Mai Crespo NP [address] , [address], [place], [address], [facility] 3 14:59:33 Date Recorded Body weight Heart rate Respiratory rate Body temperature Oxygen saturation Oxygen saturation in Arterial blood by Pulse oximetry Systolic blood pressure Diastolic blood pressure Provider Name and Address Organization Details Last Updated DateTime 3 813019. 25 g 77 /min 18 /min 98.3 [degF] 96 % 96 % 138 mm[Hg] 72 mm[Hg] Mai Crespo NP [address], [place], [address], [facility] 3 09:15:29 Date Recorded Systolic blood pressure Diastolic blood pressure Provider Name and Address Organization Details Last Updated DateTime 02/22/2023 138 mm[Hg] 79 mm[Hg] Shamar Grijalva MD [address], [place], [address], [facility] 02/22/2023 08:37:55 Social History Question Answer Notes LastModified by Organizat ion Details LastModified Time Tobacco Smoking Status Never Smoker Shamar Grijalva MD [address] , [address], [place], [address], [facility] 04/24/2017 11:08:45 Do You Have An Advance Directive? Yes Full Code Information not available 04/24/2017 How Much Tobacco Do You Chew? None Information not available 04/24/2017 What Is Your Code Status? Full Code Information not available 02/15/2023 Do You Have A Medical Power Of Lathe Tender? No Information not available 04/24/2017 What Was The Date Of Your Most Recent Tobacco Screening? 02/15/2023 Information not available 02/15/2023 Sex: Unknown Functional Status Question Answer Note LastModified by Organization D etails LastModified Time What is your level of alcohol consumption? None Information not available 04/24/2017 Mental Status None recorded. Family History Nothing Reported Notes:Mother: heart problems Father bone ca Medical History No medical history recorded. Immunizations Vaccine Type Date Status Note Provider Nam e and Address Organization Details Recorded Time Influenza, adjuvanted, quadrivalent, PF 03/30/2023 completed Sharon camilo [place] - [facility] 06/15/2023 12:40:58 Past Encounters Encounter ID Performer Location Encounter Start Date Encounter Closed Date Diagnosis/Indication Diagnosis SNOMED-CT Code Diagnosis ICD10 Code Diagnosis Note [id number] [facility] [address] [place] [address] 04/24/2017 10:46:11 05/03/2017 13:22:45 Unsteady gait 946024911 R26.81 see HPIgait instabilit y and generalize d weakness admit for continued care. 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 History of cerebrovascular accident 150266046 Z86.73 see above Atrial fibrillation 4943 6004 I48.0 maintained on coumadinmo nitor and titrate dosemetopr olol for rate control Diabetes mellitus 162558 09 E11.9 metformin 500 mg qdmonitor blood gluocse Systolic h eart failure 158240988 I50.22 carrying dxnot currently on diureticmo nitor fluid status and respirator y function Essential hypertension 42834011 I10 norvasc discontinu ed in hospital maintained onmetoprol ol 12.5 mg qdmonitor bp and labs Hypopituitarism 53104353 E23.0 hx of added to PMHcortef 10 mg qam 5 mg qpm Seizure disorder 2712037 02 G40.89 keppra 750 mg bidmonitor for activity Depressive disorder 3548 9007 F32.89 prozac 20 mg qdmonitor mood Benign pro static hyperplasia without outflow obstruction 623617287 N40.0 [place]omax 0.4 [place] [id number] JOCELYN Ramon [facility] [address] [place] [address] 04/26/2017 11:47:39 05/03/2017 13:25:43 Low back pain 504774996 M54.5 Secondary to mechanical fallCurren tly on oxycodone 5 mg Q6h prn-will increase to 5-10 mg Q4h prn and monitorPat ient agrees to work with therapy if pain can be better controlled [id number] Shamar Grijalva MD [facility] [address] 05/01/2017 10:19:25 05/03/2017 13:36:42 Unsteady gait 429205437 R26.81 improved with PT OT Atrial fibrillation 4943 6004 I48.0 maintained on coumadinmo nitor and titrate doserate controlled on metorprolo lremains in sinus rhythm Diabetes mellitus 040406 09 E11.9 metformin 500 mg qdcontinue Essential hypertension 35627233 I10 norvasc discontinu ed in hospital maintained onmetoprol ol 12.5 mg qdmonitor bp and labs Hypopituitarism 79042043 E23.0 hx of added to PMHcortef 10 mg qam 5 mg qpm Seizure disorder 1048021 02 G40.89 keppra 750 mg bidcontinu e Depressive disorder 3548 9007 F32.89 prozac 20 mg qdcontinue Benign pro static hyperplasia without outflow obstruction 927184058 N40.0 flomax 0.4 mg qdcontinue [id number] Mai Crespo NP [address] [address] 02/15/2023 13:50:23 02/21/2023 13:17:35 History of cerebrovascular accident 646741523 Z86.73 hx of cva with right sided weaknessas pirin 81 mg po dailyon ac see belownow non weight bearing to left sidemonito r Atrial fibrillation 4943 6004 I48.0 maintained on coumadinwa s on 2.5mg alt with 5 mg every other daymonitor and titrate dosemetopr olol for rate control Diabetes mellitus 015927 09 E11.9 metformin 500 mg qdmonitor blood glucose Systolic h eart failure 046189864 I50.22 carrying dxnot currently on diureticmo nitor fluid status and respirator y function Essential hypertension 63572023 I10 amlodipine 2.5 mg po dailymetop rolol succ 12.5 mg qdmonitor bp and labs Hypopituitarism 13470444 E23.0 hx of added to PMHcortef 10 mg qam Seizure disorder 5299785 02 G40.89 keppra 750 mg bidmonitor for activity Depressive disorder 3548 9007 F32.89 prozac 20 mg qdmirtazap ine 15 mg po dailymonit or mood Benign pro static hyperplasia without outflow obstruction 555596450 N40.0 flomax 0.4 mg qdmyrbetri q 25 mg po dailymonit or for sx Hyperlipidemia 53781937 E78.5 atorvastat in 40 mg po bedtimemon itor Gout 28220680 M10.9 allopurino l 100 mg po dailymonit or Gastroesop hageal reflux disease 575436644 K21.9 famotidine 20 mg po dailymonit or Vitamin deficiency 16671 002 E56.9 magnesium oxide 250mg tidferrous sulfate 325 mg po dailymonit or Closed fra cture of greater trochanter of left femur 7953350174 6359721 S72.115A non surgical per orthonon weight bearing to left sideokay to use kimberly lift if needed with careful transfer prnair loss bariatric mattress due to non weight bearing status of left and right weak cva11/1add lidocaine patch to left hip topically dailywill need fu with orthooxyco done 5 mg po q 6 hours prn paintyl prnPT OTon ac coumadin Impaired cognition 96195 6002 R41.89 scores 13/30 for moderate cognitive impairment invoke today, with son as decision makermonit or [id number] Shamar Grijalva MD [facility] [address] [address] 02/22/2023 08:30:44 02/24/2023 15:15:57 Closed fracture of greater trochanter of left femur 3638871390 4724847 S72.115A see HPIleft greater trochanter ic femur fx. Eval by ortho with no surgical interventi on indicated at that time to remains NWB till cleared by orthoPT OT eval and treatmonit or fall risk and pain controlupd ate ortho with concerns History of cerebrovascular accident 945167034 Z86.73 baseline right sided weakness post prior cvaPT TO Eval and treat Atrial fibrillation 9983 6004 I48.0 coumadin monitor and titrate following INRmetopro lol 12.5 mg qdmonitor for rate control Diabetes mellitus 505737 09 E11.9 metformin 500 mg qdmonitor blood glucose and need to adjust Systolic h eart failure 686504146 I50.22 carrying dxcurrentl y not on diureticmo nitor fluid status and respirator y function Essential hypertension 20232173 I10 norvasc 2.5 mg po qdmetoprol ol 12.5 mg qdmonitor bp and labs Seizure disorder 2302599 02 G40.89 keppra 750 mg bidmonitor for activity Benign pro static hyperplasia without outflow obstruction 805541580 N40.0 flomax 0.4 mg qdmyrbetri q 25 mg po qdmonitor for sx relief Hyperlipidemia 96269275 E78.2 lipitor 40 mg qdcontinue d Gastroesop hageal reflux disease 308414451 K21.9 famotidine 20 mg po qdmonitor for sx relief Impaired cognition 65489 6002 R41.89 baseline cognitive impairment unable to make own decisionsi nvoke HCPcontinu e supportive caremonito r need for increased services in community Myelolipom a of adrenal gland 713534528 D35.01 see HPIInciden filippo finding of probable myelolipom a right adrenal lesionrepe at CT in 3-6 monthsmoni tor need for biospycoul d refer to IR [id number] Mai Crespo NP [facility] [address] [address] 03/02/2023 14:58:01 03/07/2023 07:54:51 Closed fracture of greater trochanter of left femur 9503528972 7814089 S72.115A non surgical per orthonon weight bearing [...] OTon ac coumadin History of cerebrovascular accident 707408282 Z86.73 hx of cva with right sided weaknessas pirin 81 mg po dailyon ac see [place] non weight bearing to left sidemonito r Atrial fibrillation 4943 6004 I48.0 maintained on coumadinmo nitor inr/pt on Mondays and prncont on regular therapy 2.5mg alt with 5 mg every other daymonitor and titrate dosemetopr olol for rate control Diabetes mellitus 441418 09 E11.9 metformin 500 mg qdmonitor blood glucose Systolic h eart failure 119010752 I50.22 carrying dxnot currently on diureticmo nitor fluid status and respirator y function Essential hypertension 30596617 I10 amlodipine 2.5 mg po dailymetop rolol succ 12.5 mg qdmonitor bp and labs Hypopituitarism 89982811 E23.0 hx of added to PMHcortef 10 mg qam Seizure disorder 3525529 02 G40.89 keppra 750 mg bidmonitor for activity Depressive disorder 3548 9007 F32.89 prozac 20 mg qdmirtazap ine 15 mg po dailymonit or mood Benign pro static hyperplasia without outflow obstruction 294258831 N40.0 flomax 0.4 mg qdmyrbetri q 25 mg po dailyconsi arik dc myrbetriq if retention occursmoni tor for sx Impaired cognition 73265 6002 R41.89 scores 13/30 for moderate cognitive impairment invoked son as decision makermonit or [id number] Mai Crespo NP [facility] [address] [address] 03/10/2023 14:58:06 03/15/2023 09:02:40 Closed fracture of greater trochanter of left femur 7535193945 1500622 S72.115A non surgical per orthonon weight bearing [...] OTon ac coumadin History of cerebrovascular accident 828160151 Z86.73 hx of cva with right sided [...] dosemetopr olol for rate control Diabetes mellitus 777918 09 E11.9 metformin 500 mg qdmonitor blood glucose Systolic h eart failure 238818288 I50.22 carrying dxnot currently on diureticmo nitor fluid status and respirator y function Essential hypertension 78364372 I10 amlodipine 2.5 mg po dailymetop rolol succ 12.5 mg qdmonitor bp and labs Seizure disorder 6212064 02 G40.89 keppra 750 mg bidmonitor for activity Depressive disorder 3548 9007 F32.89 prozac 20 mg qdmirtazap ine 15 mg po dailymonit or mood Benign pro static hyperplasia without outflow obstruction 607784819 N40.0 flomax 0.4 mg qdmyrbetri q 25 mg po dailyconsi arik dc myrbetriq if retention occursmoni tor for sx Impaired cognition 62954 6002 R41.89 scores 13/30 for moderate cognitive impairment invoked son as decision makermonit or [id number] Mai Crespo NP [facility] [address] [address] 03/15/2023 09:03:01 03/20/2023 10:39:58 Closed fracture of greater trochanter of left femur 7685991870 0454744 S72.115A non surgical per orthonon weight bearing [...] at baselinefu with pcp outpt Diabetes mellitus 095357 09 E11.9 metformin 500 mg qdmonitor blood glucose History of cerebrovascular accident 935171569 Z86.73 hx of cva with right sided [...] els here above Systolic h eart failure 870812642 I50.22 carrying dxnot currently on diureticmo nitor fluid status and respirator y function outpt Essential hypertension 24049602 I10 stable here on:amlodip ine 2.5 mg po dailymetop rolol succ 12.5 mg qdmonitor outpt with pcp Seizure disorder 8505063 02 G40.89 keppra 750 mg bidmonitor for activity outpt Depressive disorder 3548 9007 F32.89 prozac 20 mg qdmirtazap ine 15 mg po dailymonit or mood outpt with pcppsych outpt prn Benign pro static hyperplasia without outflow obstruction 704328993 N40.0 flomax 0.4 mg qdmyrbetri q 25 mg po dailyconsi arik dc myrbetriq if retention occursmoni tor for sx outpt with pcp Impaired cognition 23536 6002 R41.89 scores 13/30 for moderate cognitive impairment on admissioni nvoked son as decision makermonit or outpt with family and [facility] Health Concerns Section Related Observation LastModified by Organization Detai ls LastModified Time None Recorded Concern Status LastModified by Organization Details LastModified Time None Recorded Advance Directives Directive Y: Full code Payers Encounter Date Sequence Insurance Name Policy Number Policy Sims Covered Member ID Sims Member ID Guarantor Name 02/15/2023 2 [place] [facility] Soniaeunice Mcintosh [id number] Yousif Nailss 02/15/2023 1 [facility] [employer] - DOS ON OR AFTER 2022 - MEDIC[place]/ADV ANTAGE - PPO) Yousif Mcintosh [id number] Yousif Velazquezgos 02/22/2023 2 [place] [facility] Soniaeunice Mcintosh [id number] Suseunice Velazquezgos 02/22/2023 1 [facility] - DOS ON OR AFTER 2022 - [place]V [place] - [place]PO) Yousif Nailss [id number] Suseunice Mcintosh 03/02/2023 2 [place] [facility] Soniaeunice Mcintosh [id number] Suseunice Mcintosh 03/02/2023 1 [facility] - DOS ON OR AFTER 2022 - [place]V ANT[place] - [place]PO) Yousif Mcintosh [id number] Yousif Nailss 03/10/2023 2 [place] [facility] Yousif Mcintosh [id number] Yousif Nailss 03/10/[address] [facility] - DOS ON OR AFTER 2022 - [place]/ADV ANTAGE - PPO) Yousif Nailss [id number] Youisf Nailss 03/15/2023 2 [place] [facility] Yousif Mcintosh [id number] Yousif Nailss 03/15/[address] [facility] - DOS ON OR AFTER 2022 - [place]AC[place]/ADV ANTAGE - PPO) Yousif Mcintosh [id number] Yousif Mcintosh Notes Date Note Type Note [...] lateral ventricle. On exam, he is mostly Lebanese speaking and automotive parts interpreter used. He states the oxycodone helps [...] to sign document Mai Crespo NP [address], [address], [place], [address], [facility] 02/17/2023 16:46:18 02/23/20 23 text/htm l [...] finding of probable myelolipoma right adrenal lesion Lebanese speaking automotive parts interpreter present PMH significant forgerdimpaired cognitionbphdepressionseizure dxhypopituitarismchfdma fibhx CVAhtngait instability admit to facility for continued care and therapy Shamar Grijalva MD [address], [address], [place], [address], [facility] 02/22/2023 09:05:01 03/02/20 23 text/htm l [...] for now. On exam, he is mostly Lebanese speaking and automotive parts interpreter used. He is transferring to toilet with help today. He reports the oxycodone and lidocaine patch are helping with the pain. MOLST: awaiting son to sign document Mai Crespo NP [address], [address], [place], [address], [facility] 03/02/2023 15:15:55 03/10/20 23 text/htm l [...] and wnl. On exam, he is mostly Lebanese speaking and automotive parts interpreter used. He denies any concerns today. He is motoring around in his wheelchair today. Pain controlled. MOLST: awaiting son to sign document Mai Crespo NP [address], [address], [place], [address], [facility] 03/10/2023 15:06:40 03/15/20 23 text/htm l 72 yo male seen seen for a discharge visit today. He [facility]ally presented [facility] on 02[facility] with hx of left [...] mild dilation of left lateral ventricle. At [facility] Yousif continues to do well working with [...] pain control. On exam, he is mostly Lebanese speaking and automotive parts interpreter used. He denies any concerns today and states his pain is controlled. He is excited to go home and [employer] is supposed to pick him up. MOLST: awaiting son to sign document- still not addressed Mai Crespo NP [address], [address], [place], [address], [facility] - [employer] 03/15/2023 09:47:09
--- OUTSIDE RECORDS SUMMARY | 2024-09-04 13:23 | XMS_ITS | Clinical Summary ---
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
--- OUTSIDE RECORDS SUMMARY | 2024-09-04 13:23 | XMS_ITS | Clinical Summary ---
Author Organization [employer] Address [address] [place] [address] [address] [place] [address] Care Team Providers Care Drill Operator Pneumatic Name Role Phone Unavailable Primary Care Provider [...] patient's age to complete this topic Meningococcal B Vaccine Aged Out No l onger eligible based on patient's age to complete [...]
--- OUTSIDE RECORDS SUMMARY | 2024-09-04 13:23 | XMS_ITS | Data Portability ---
Author Organization [employer] Address [address] [place] [id number] Care Team Providers Care Dye Can Operator Name Role Phone HIM FARA OTHER Assessment Encounter Date Assessment Date Assessment LastModified by Organization Details LastModified Time 02/14/2024 02/14/2024 As noted, we were called to see this patient regarding concerns of catheter discomfort. Evaluation in the field was performed by my music box mechanic colleague, as noted above, I provided real-time [...] not on abx at this time. Today SENIOR PROGRAM ANALYST noted that pt began to have discomfort [...] of any new or worsening serious symptoms [email or web address] Not available 02/14/2024 13:43:37 Plan of Treatment Reminders Order Date Submit Date Provider Last Modified By Organization Details Last Modified Time Details Appointments None recorded. Lab culture, urine 2023 [place] [facility] (Centralized Electronic Ordering - All Locations), Patient Can Go To The Location Of Their Choice, [facility] 4 12:06:07 urinalysis, dipstick 2023 [address]24 [address], [phone] 13:38:24 BMP, serum or plasma [address], [phone] 4 13:55:24 hemoglobin + hematocrit, blood 2023 024 [facility], [address] [place] [address], [phone] 14:07:51 Referral None recorded. Procedures None recorded. Surgeries None recorded. Imaging None recorded. Medication Orders clotrimazol e 1 % topical cream 2023 024 [facility][id number], [address] [facility], [place], [address], 13:20:20 prednisone 20 mg tablet 2023 024 [facility], [address], [place], [id number], 4 13:20:13 prednisone 20 mg tablet 2023 024 [facility] #[id number], [address] [place], [address], 4 13:20:19 Tylenol 325 mg tablet 2021 022 [facility], [address], [place], [phone], 12:41:29 Patient TargetsNo targets recorded. Patient InstructionsNo instructions recorded. Reason for Referral None Reported. Results Created Date Observation Date Name Description Value Unit Range Abnormal Flag Note LastModifiedBy Organization Detail LastModifiedTime 09/22/19 24 09/22/2023 hemog lobin + hemat ocrit , blood Hemoglobin 13.7 Not Available [facility] [address] [place] [address], [phone] 09/22/2023 13:55:39 09/22/19 24 09/22/2023 hemog lobin + hemat ocrit , blood Hematocrit 40 Not Available [facility] [address] [place] [address], [phone] 09/22/2023 13:55:39 09/22/19 24 09/22/2023 BMP, serum or plasm a BUN 21 Not Available [facility] [address], [phone] 09/22/2023 13:10:34 09/22/19 24 09/22/2023 BMP, serum or plasm a Ca 1.07 Not Available [facility] [address], [address] 09/22/2023 13:10:34 09/22/19 24 09/22/2023 BMP, serum or plasm a CI- 107 Not Available [facility] [address], [address] 09/22/2023 13:10:34 09/22/19 24 09/22/2023 BMP, serum or plasm a CRE 1.57 Not Available [facility] [address], [address] 09/22/2023 13:10:34 09/22/19 24 09/22/2023 BMP, serum or plasm a GLU 146 Not Available [facility] [address], [address] 09/22/2023 13:10:34 09/22/19 24 09/22/2023 BMP, serum or plasm a K+ 4.7 Not Available [facility] [address], [address] 09/22/2023 13:10:34 09/22/19 24 09/22/2023 BMP, serum or plasm a Na+ 146 Not Available [facility] [address], [address] 09/22/2023 13:10:34 09/22/19 24 09/22/2023 BMP, serum or plasm a tCO2 27 Not Available [facility] [address], [address] 09/22/2023 13:10:34 02/14/20 24 02/17/2024 URINE CULTU RE,CO MPREH ENSIV E urine culture,comp rehensive Final report abnormal Not Available [facility] ([facility]) [address] [facility], [place], [address], 02/17/2024 10:06:10 02/14/20 24 02/17/2024 URINE CULTU RE,CO MPREH ENSIV E result 1 Proteu s mirabi lis abnormal Great er than 100,0 00 colon y formi ng units per mL Susce ptibi lity profi le is consi stent with a proba ble ESBL. Not Available [facility] ([facility]) [address] [facility], [place], [address], 02/17/2024 10:06:10 02/14/20 24 02/17/2024 URINE CULTU [...] lfa S Not Available [facility] ([facility]) [address], [place], [address], 02/17/2024 10:06:10 Result Notes None recorded. Medical [...] Available Not Available N ot Available [employer] Thorp Lite kit USE DIRECTED active Not Available [...] % 98.9 [degF] 16 /min 68 /min 56266.3 2 g 104 mm[Hg] 74 mm[Hg] Not Available [facility] 4 13:04:35 Date Recorded Body height Body weight Respiratory rate Body temperature Oxygen saturation Oxygen saturation in Arterial blood by Pulse oximetry Heart rate Systolic blood pressure Diastolic blood pressure Provider Name and Address Organization Details Last Updated DateTime 4 187.96 cm 403288. 608 g 16 /min 98.6 [degF] 99 % 99 % 80 /min 116 mm[Hg] 71 mm[Hg] Not Available [facility] 4 13:29:45 Date Recorded Heart rate Respiratory rate Oxygen saturation Oxygen saturation in Arterial blood by Pulse oximetry Body temperature Systolic blood pressure Diastolic blood pressure Provider Name and Address Organization Details Last Updated DateTime 2 64 /min 16 /min 96 % 96 % 98.4 [degF] 116 mm[Hg] 79 mm[Hg] Prakash Willis MD [address] [facility],[address], [place], [phone], [place] [facility] 2 22:59:54 Date Recorded Oxygen saturation Oxygen [...] 753 Prakash Willis MD [facility] - [facility] [address] [place] [phone] 07/15/2021 22:59:29 12/07/2021 16:05:03 Blister 771104404 R23.8 No red flag symptoms- Has close f/u with dermatolog y; may need drainage (likely has collection of blood in blister)- Does not wish to go to urgent care/ED for drainage at this time- Has close f/u with PCP as well- Advised to use bandage to wrap toe 5551 [facility] [address] [place] [phone] 03/09/2022 12:31:12 03/11/2022 10:44:07 Pain of right knee joint 1299771818 35978 M25.561 Can bear weight. Cannot tolerate NSAIDS; will rx tylenol and encourage f/u with PCP in 1 week [id number] ROSY DUCKWORTH [facility] [address] [place] [phone] 09/22/2023 13:04:26 09/22/2023 21:08:47 Contact dermatitis 98942207 L25.9 Evaluation in the field was performed by my music box mechanic colleague, as noted above, I provided real-time [...] days ( first dose given by the music box mechanic) -Clotrimaz ole cream 1 %-Red flags discussed [...] from the leg or any other concerns. [id number] Manoj Angela MD [facility] - [facility] [address] [place] [phone] 02/14/2024 13:29:41 02/14/2024 15:51:41 Indwelling urethral urinary catheter in situ 172918652 Z96.0 Health Concerns Section Related Observation LastModified by Organization Detai ls LastModified Time None Recorded Concern Status LastModified by Organization Details LastModified Time None Recorded Advance Directives Directive None Recorded Payers Insurance Date Sequence Insurance Name Policy Number Policy Sims Covered Member ID Sims Member ID Guarantor Name 06/11/2023 1 [facility] - DOS PRIOR TO 2022 - DUAL ELIGIBLE (MEDICARE REPLACEMENT/ADV ANTAGE - HMO) Yousif Mcintosh [id number] Yousif Mcintosh 02/14/2024 1 [facility] - DOS ON OR AFTER 2022 - DUAL ELIGIBLE - [employer] OPTIONS AND ONE CARE (MEDICARE REPLACEMENT/ADV ANTAGE - HMO) Yousif Mcintosh [id number] Yousif Mcintosh Notes Date Note Type Note Provider Name and Address Organization Details Recorded Time 07/15/2021 text/html Per music box mechanic an d patient:- patient states that he [...] drainage- no fevers Prakash Willis MD [address] [facility],[address], [place], [address], [place] [facility] 07/15/2021 23:02:30 03/09/2022 text/html [facility] Nursing Assessment: Reason For Request: Pain in neck and right knee Chief Complaints: Pain PMH: CHF, Diabetes, Hypertension Allergies: No Known Comments: SENIOR PROGRAM ANALYST calling for member to have [facility] visit for atraumatic L knee pain x 2 days no OTC's via Indonesian int ................... ................... ................... ................... ................... ................... ................... ........ Bath Mix Operator Note: Complaint of knee pain x2 days, pt twisted exiting a vehicle and felt a pop. Pt called looking for pain management, no deformities noted no swelling good color to the feet (+) pulses, pt is able to bare weight to transfer, [facility] contacted and ordered 500mg PO Tylenol and was administered, pt educated on RICE techniques and told to follow up with PCP if the pain doesn? t change. ................... ................... ................... ................... ................... ................... ................... ........ Disposition: Fulfilled Prakash Willis MD [address] [facility],[address], [place], [address], [employer] 03/09/2022 17:17:03 09/22/2023 text/html [facility] Nurse Triage Notes (Clarissa Rae): Reason For Request: Pt's SENIOR PROGRAM ANALYST reporting right leg edema with discharge going on 1 week, with some swelling, redness and discharge Chief Complaints: Edema, Cellulitis PMH: CHF, Diabetes, Hypertension Allergies: No Known Comments: Members SENIOR PROGRAM ANALYST calling in to place a referral, member identified via name and . Member with probable cellulitis. Member with redness and edema to right lower leg for a week. Per SENIOR PROGRAM ANALYST skin is dry and weeping, +pitting, denies warmth, no fever/chills, not on any diuretics. Member with hx of cellulitis. Member would like to be evaluated. Bath Mix Operator POC Test Results from Jace Arroyo [facility] (13:12:53) pH: 7.406 pH units pCO2: 38.3 mmHg pO2: 27.2 mmHg Na: 141 mmol/L K: 4.7 mmol/L iCa: 1707 mmol/L Cl: 107 mmol/L TCO2: 23.6 mEq/L Hct: 40 % Hb: 13.7 g/dL Glu: 146 mg/dL Lac: 1.22 mmol/L Cr: 1.57 mg/dL BUN: 27 mg/dL A ................... ................... ................... ................... ................... ................... ................... ........ Bath Mix Operator Note From Jace Arroyo: Pt co [...] ................... ........ Disposition: Fulfilled ROSY DUCKWORTH MD [address] [place] [address],[address], [place], [address], [employer] 09/22/2023 14:08:54 02/14/2024 text/html [facility] Nurse Triage Notes (Josephine Lilly): Reason For Request: SENIOR PROGRAM ANALYST [facility] calling in, pt experiencing pain near catheter site Chief Complaints: Urinary catheter/nephrostom y tube problems PMH: Congestive Heart Failure, Hypertension, Stroke, Epilepsy/Seizure Disorder, Diabetes Mellitus Type 2 Comments: Went to ER on Monday for urinary retention. New goldman catheter placed. Having pain at insertion site that started today with hematuria. Denies fever, low back pain, or abdominal pain. On coumadin. Bath Mix Operator Organization Information for Lacho Andrews [employer] Name: [employer]? Address: [address] [place] [id number], Automatic Pilot Mechanic: Kingsley GODOY No.: [id number] Bath Mix Operator POC Test Results from Lacho Andrews - [...] ................... ................... ................... ................... ................... ................... ........ Bath Mix Operator Note From Lacho Andrews: [facility] [...] and answering all questions appropriately through his SENIOR PROGRAM ANALYST, who is translating for the him. Pt [...] is noted in his catheter bag and SENIOR PROGRAM ANALYST reports a strong ammonia smell to his urine when she emptied his bag this morning.[facility] contacts [facility] and discusses the above assessment and findings. [facility] orders urine to be sent to the lab. Pt is informed he will receive test results in a couple days. [facility] ensures pt and caregiver have no further questions or concerns. [facility] drops urine sample off at [facility] is clear. Report completed by KRISTAL Andrews [id number] [facility] Lab Orders: culture, urine: Performed ................... ................... ................... ................... ................... ................... ................... ........ [facility] Consulted: Manoj Angela ................... ................... ................... ................... ................... ................... ................... ........ Disposition: Fulfilled Manoj Angela MD [address] [place] [address],[address] [facility], [place], [address], [employer] 02/14/2024 14:39:55
== END 2024-09-04 14:16 | disposition home or self-care (01) ==
LOC: HO.HUSH 12:40
PROVIDERS: PCP Internal Medicine; Visit Provider Urology
DX: C61 Malignant neoplasm of prostate (principal); Z19.1 Hormone sensitive malignancy status; Z13.9 Encounter for screening, unspecified
CPT/HCPCS: 99024

== ENCOUNTER → 2024-09-27 11:43 | Outpatient (BNVA) | payer OTHER, SELFPAY | PROVIDERS: PCP Internal Medicine; Visit Provider Internal Medicine Medical Oncology | DX: Z79.01 Long term (current) use of anticoagulants (principal) ==

== ENCOUNTER → 2024-10-04 11:12 | Outpatient (BNVA) | payer OTHER, SELFPAY | PROVIDERS: PCP Internal Medicine; Visit Provider Internal Medicine Medical Oncology ==

== ENCOUNTER 2024-10-15 13:46 | Outpatient (AMB) | payer OTHER, SELFPAY ==
--- NOTE | 2024-10-15 14:02 | MHC.PC.OV ---
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 Allergies No Known Allergies Allergy (Verified 10/15/24 14:38) Medication List - Last Reconciled 10/15/24 by Poonam Mejia MD [adult diapers pull-ups As directed] allopurinol 100 mg PO DAILY atorvastatin 40 mg PO BEDTIME 90 days [bed side table As directed] blood sugar diagnostic (NoviTouch Ultra Test strips) test once per day blood-glucose meter ([employer] Ultra2 Meter) test once per day commode (bedside commode) As directed empagliflozin (Jardiance) 10 mg PO DAILY 90 days famotidine 20 mg PO DAILY PRN 30 days ferrous sulfate 325 mg PO DAILY 60 days finasteride 5 mg PO DAILY 90 days fluoxetine 20 mg PO DAILY 90 days [gloves As directed] hydrocortisone (Cortef) 10 mg (2 x 5 mg) PO DAILY [incontinent wipes As directed] lancets ([employer] Delica Safety Lancet) test once per day [Legs rests for Dynaride 19 TWC non elevating Use daily prn] levetiracetam 750 mg PO BID 3 months magnesium oxide 400 mg PO DAILY 90 days metformin 500 mg PO DAILY metoprolol succinate ER 12.5 mg (1/2 x 25 mg) PO DAILY mirtazapine 15 mg PO BEDTIME 3 months nebulizers (VixOne Nebulizer-Adult Mask) As directed- tube like [power wheelchair As directed] tamsulosin 0.4 mg PO DAILY 3 months underpads (Bed Underpads) As directed warfarin 2.5 mg See Protocol PO SUTUWETHSA warfarin 5 mg See Protocol PO MOFR [wipes As directed] Tobacco use date assessed: 06/10/24 Fall risk assessment: No Falls in past year Last assessed Fall Risk: 10/15/24 Dental Screening Dental Screen Date: 06/10/24 HPI HPI Comments History of Present Illness Details The patient is a 79-year-old male presenting with follow-up on his chronic conditions, including stroke, atrial fibrillation, and prostate cancer. The patient experienced a stroke in 2011, resulting in right-sided weakness and hemiparesis. He has been managing atrial fibrillation with chronic anticoagulation under cardiology supervision. His congestive heart failure and asymmetric septal hypertrophy are also monitored by cardiology. 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 His last PSA level in March was 19.40. He has a history of seizures, with the last episode occurring in 2016. He also has chronic kidney disease and diabetes mellitus, with a recent A1c of 6.8%. The patient reports using diapers for incontinence and has a history of gout, although he has not experienced recent attacks. He is on multiple medications, including alopurinol, atorvastatin, and warfarin, among others. 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 Housing: Apartment Are you a primary customer care agent to a significant other at home: No Do you presently have visiting nurse or other home services: Yes Unable to assess alcohol history related to: Unknown Alcohol intake: never Comment: Oxycodone PO Patient Tobacco Use Status: Never used Tobacco e-Cigarette/Vaping Use: Never Used Second Hand Smoke Exposure: No Advance Directives Date on File: 12/20/11 service: No Current occupational status: disabled Cognitive needs: Yes (wheelchair) Hearing needs: No Vision needs: No Questionnaire PHQ-9 Over the last 2 weeks, how often have you been bothered by any of the following problems? 1. Little interest or pleasure in doing things: not at all 2. Feeling down, depressed, or hopeless: not at all 3. Trouble falling or staying asleep, or sleeping too much: not at all 4. Feeling tired or having little energy: several days 5. Poor appetite or overeating: not at all 6. Feeling bad about yourself - or that you are a failure or have let yourself or your family down: not at all 7. Trouble concentrating on things, such as reading the newspaper or watching television: not at all 8. Moving or speaking so slowly that other people could have noticed. Or the opposite - being so fidgety or restless that you have been moving around a lot more than usual: not at all 9. Thoughts that you would be better off or of hurting yourself in some way: not at all Total score: 1 Depression Screening Interpretation: Negative Depression Screening Done: Yes 97073 - PHQ-9 Billing: Yes Source: Developed by Drs. Lalito Robbins, Laura Cedeno, Quang Alexander and colleagues, with an educational tanya from [employer]. Thrive Questionnaire Date Thrive assessed: 10/15/24 I am a: Patient What is your living situation today?: I have a steady place to live Within the past 12 months, did the food you bought not last and you didn't have the money to get more?: Never true Within the past 12 months, did you worry whether your food would run out before you got money to buy more?: Never true Do you have trouble paying for medicines?: No Do you have trouble getting transportation to medical appointments?: No Do you have trouble paying your heating and electricity bill?: No Do you have trouble taking care of your child, family member or friend?: No Do you have trouble with day-to-day activities such as bathing, preparing meals, shopping, managing finances, etc.?: Yes Are you currently unemployed and looking for a job?: No Are you interested in more education?: No Please select the resources that you would like help with: None Currently or been in a relationship where the following occur: No concerns reported THRIVE Score: 0 AUDIT C Alcohol Use Questionnaire (AUDIT-C) 1. How often do you have a drink containing alcohol?: Never Total Score: 0 Score Reviewed/Action Taken: No KERRY-7 AMB Questionnaire KERRY-7 Date KERRY - 7 assessed: 10/15/24 Feeling nervous, anxious, or on edge: 0 = Not at all Not being able to stop or control worryin = Not at all Worrying too much about different things: 0 = Not at all Trouble relaxin = Not at all Being so restless that it is hard to sit still: 0 = Not at all Becoming easily annoyed or irritable: 0 = Not at all Feeling afraid as if something awful might happen: 0 = Not at all Total KERRY-7 score (0-4 normal; 5-9 mild; 10-14 moderate; 15-21 severe): 0 Source: Developed by Drs. Lalito Robbins, Laura Cedeno, Quang Alexander and colleagues, with an educational tanya from [employer]. KERRY-7 Assessment Billing KERRY-7 Assessment Tool: KERRY-7 Assessment 29912 Review of Systems Const All systems reviewed & are unremarkable except as noted in HPI and below Card Denies chest pain at rest, Denies chest pain with activity, Denies edema, Denies irregular heart rhythm, Denies claudication, Denies dyspnea, Denies dyspnea on exertion, Denies orthopnea, Denies paroxysmal nocturnal dyspnea and Denies slow heart rate Resp Denies cough, Denies dyspnea and Denies dyspnea on exertion GI Denies abdominal pain, Denies change in bowel habits, Denies excessive flatus, Denies nausea and Denies vomiting Musc Reports muscle weakness Neuro Denies lack of coordination and Reports focal weakness Physical exam (Primary Care) Vital Signs: Last Vital Signs BP 108/60 10/15/24 14:17 Tobacco/Smoking Status: Tobacco use Status Tobacco use date assessed 06/10/24 10/15/24 14:08 Patient Tobacco Use Status Never used Tobacco 10/15/24 14:08 e-Cigarette/Vaping Use Never Used 10/15/24 14:08 PHQ-9: PHQ-9 Score PHQ-9: Total score 1 10/15/24 14:41 Depression Screening Interpretation: Negative Thrive Assessment: Date of Thrive Assessment Date Thrive assessed 10/15/24 10/15/24 14:08 Currently or been in a relationship where the following occur: No concerns reported Const Limitations: wheelchair Resp Effort & Inspection: normal respiratory effort Auscultation: clear to auscultation bilaterally Cardio Jugular venous distension: no JVD Rate: regular rate Rhythm: regular rhythm Heart sounds: S1 normal heart sound present and S2 normal heart sound present Neuro Motor exam (neuro): Abnormal motor strength present (3/5 right, 5/5 left) Extrem General: Yes full ROM Results AMB Hemoglobin A1c AMB Hemoglobin A1c 6.8 % Last Edit by TAWANA Rainey on 10/15/24 14:29 Results Reviewed Results Reviewed: Laboratory Last Values Hgb A1c (Clinic) 6.8 % (4.0-6.0) H 10/15/24 14:02 Coding Level of Care Code Est Pt Level 4 (02553) Complex EM visit Add On G2211 Diagnoses Mild major depression F32.0 Chronic diastolic congestive heart failure I50.32 Heart failure type: diastolic Heart failure chronicity: chronic Asymmetric septal hypertrophy I42.2 Longstanding persistent atrial fibrillation I48.11 Atrial fibrillation type: longstanding persistent Type 2 diabetes mellitus without complication, without long-term current use of insulin E11.9 Diabetes mellitus type: type 2 Diabetes mellitus residential insulin use: without residential use Diabetes mellitus complication status: without complication Hormone sensitive prostate cancer C61; Z19.1 Hemiparesis following cerebrovascular accident (CVA) I69.359 Seizures R56.9 Additional Codes KERRY-7 Assessment Billing - KERRY-7 Assessment Tool: KERRY-7 Assessment 94904 ([id number]) PHQ-9 - 47812 - PHQ-9 Billing: Yes ([id number]) Time Spent (min) 26 Assessment & Plan Assessment & Plan (1) Mild major depression: Code(s): F32.0 - Major depressive disorder, single episode, mild Category: Medical (2) CHF (congestive heart failure): Code(s): I50.9 - Heart failure, unspecified Category: Medical Qualifiers: Heart failure type: diastolic Heart failure chronicity: chronic Qualified Code(s): I50.32 - Chronic diastolic (congestive) heart failure (3) Asymmetric septal hypertrophy: Code(s): 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 Category: Medical (4) Atrial fibrillation: Code(s): I48.91 - Unspecified atrial fibrillation Category: Medical Qualifiers: Atrial fibrillation type: longstanding persistent Qualified Code(s): I48.11 - Longstanding persistent atrial fibrillation (5) Diabetes mellitus: Code(s): E11.9 - Type 2 diabetes mellitus without complications Category: Medical Qualifiers: Diabetes mellitus type: type 2 Diabetes mellitus residential insulin use: without chemistry instructor use Diabetes mellitus complication status: without complication Qualified Code(s): E11.9 - Type 2 diabetes mellitus without complications (6) Hormone sensitive prostate cancer: Code(s): C61 - Malignant neoplasm of prostate; Z19.1 - Hormone sensitive malignancy status Category: Medical (7) Hemiparesis following cerebrovascular accident (CVA): Code(s): I69.359 - Hemiplegia and hemiparesis following cerebral infarction affecting unspecified side Category: Medical (8) Seizures: Comment: Last seizure ~2015 per patient Code(s): R56.9 - Unspecified convulsions Category: Medical Plan The patient will continue with chronic anticoagulation therapy for atrial fibrillation under cardiology supervision. Regular follow-ups with cardiology are advised to monitor congestive heart failure and asymmetric septal hypertrophy. The patient is advised to continue monitoring his PSA levels and follow up with urology for prostate cancer management. Diabetes management will continue with current medications, and regular monitoring of A1c levels is recommended. The patient should maintain his current medication regimen for seizure disorder and gout, with adjustments as needed based on symptomatology. Regular check-ups are necessary to assess the effectiveness of the treatment plan and make necessary adjustments. Patient was informed and verbally consented to the use of an ambient scribe for clinic note documentation during this visit. Orders: Orders CA echo transthoracic complete 10/15/24 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, I50.32 - Chronic diastolic (congestive) heart failure AMB Hemoglobin A1c 10/15/24 E11.9 - Type 2 diabetes mellitus without complications Referrals Vascular Surgery Referral I89.0 - Lymphedema, not elsewhere classified Medications: Refilled warfarin 5 mg See Protocol PO MOFR 30 tabs 0RF warfarin 2.5 mg See Protocol PO SUTUWETHSA 30 tabs 6RF
[2024-10-15 14:17] VITALS: BP 108/60
--- OUTSIDE RECORDS SUMMARY | 2024-10-15 14:56 | XMS_ITS | Clinical Summary ---
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
--- OUTSIDE RECORDS SUMMARY | 2024-10-15 14:56 | XMS_ITS | Data Portability ---
Author Organization [employer] [facility], [facility] Address [address] [place] [address] Care Team Providers Care Dental Mechanic Name Role Phone HIM CCA OTHER Assessment Encounter Date Assessment Date Assessment LastModified by Organization Details LastModified Time 02/14/2024 02/14/2024 As noted, we were called to see this patient regarding concerns of catheter discomfort. Evaluation in the field was performed by my economics analyst colleague, as noted above, I provided real-time [...] not on abx at this time. Today COT ASSEMBLER noted that pt began to have discomfort [...] of any new or worsening serious symptoms [email or web address] Not available 02/14/2024 13:43:37 Plan of Treatment Reminders Order Date Submit Date Provider Last Modified By Organization Details Last Modified Time Details Appointments None recorded. Lab culture, urine 2023 SOMERS [facility] (Centralized Electronic Ordering - All Locations), Patient Can Go To The Location Of Their Choice, [facility] 12:06:07 urinalysis, dipstick 2023 rsullivan 84 [facility], [address] [place] [address], [phone] 13:38:24 BMP, serum or plasma [facility] [address] [place] [address], [phone] 13:55:24 hemoglobin + hematocrit, blood 2023 0[facility], [address] [place] [address], [phone] 14:07:51 Referral None recorded. Procedures None recorded. Surgeries None recorded. Imaging None recorded. Medication Orders clotrimazol e 1 % topical cream 2023 024 [facility][id number], [address] [facility], [place], [address], 13:20:20 prednisone 20 mg tablet 2023 024 [facility], [address] [place], [place], [id number], 13:20:13 prednisone 20 mg tablet 2023 024 [facility]armacy #[id number], [address] [place], [address], 13:20:19 Tylenol 325 mg tablet 2021 022 [facility], [address] [place], [place], [id number], 12:41:29 Patient TargetsNo targets recorded. Patient InstructionsNo instructions recorded. Reason for Referral None Reported. Results Created Date Observation Date Name Description Value Unit Range Abnormal Flag Note LastModifiedBy Organization Detail LastModifiedTime 09/22/19 24 09/22/2023 hemog lobin + hemat ocrit , blood Hemoglobin 13.7 Not Available Main - [address], [address] 09/22/2023 13:55:39 09/22/19 24 09/22/2023 hemog lobin + hemat ocrit , blood Hematocrit 40 Not Available Main - [address], [address] 09/22/2023 13:55:39 09/22/19 24 09/22/2023 BMP, serum or plasm a BUN 21 Not Available Main - Ins [address], [address] 09/22/2023 13:10:34 09/22/19 24 09/22/2023 BMP, serum or plasm a Ca 1.07 Not Available Main - Ins [address], [address] 09/22/2023 13:10:34 09/22/19 24 09/22/2023 BMP, serum or plasm a CI- 107 Not Available Main - Ins [address], [address] 09/22/2023 13:10:34 09/22/19 24 09/22/2023 BMP, serum or plasm a CRE 1.57 Not Available Main - Ins [address], [address] 09/22/2023 13:10:34 09/22/19 24 09/22/2023 BMP, serum or plasm a GLU 146 Not Available Main - Ins [address], [address] 09/22/2023 13:10:34 09/22/19 24 09/22/2023 BMP, serum or plasm a K+ 4.7 Not Available Main - Ins [address], [address] 09/22/2023 13:10:34 09/22/19 24 09/22/2023 BMP, serum or plasm a Na+ 146 Not Available Main - Ins [address], [address] 09/22/2023 13:10:34 09/22/19 24 09/22/2023 BMP, serum or plasm a tCO2 27 Not Available Main - Ins [address], [address] 09/22/2023 13:10:34 02/14/20 24 02/17/2024 URINE CULTU RE,CO MPREH ENSIV E urine culture,comp rehensive Final report abnormal Not Available [facility] ([facility]) [address] [facility], [place], [address], 02/17/2024 10:06:10 02/14/20 24 02/17/2024 URINE CULTU RE,CO MPREH ENSIV E result 1 Proteu s mirabi lis abnormal Great er than 100,0 00 colon y formi ng units per mL Susce ptibi lity profi le is consi stent with a proba ble ESBL. Not Available [facility] ([facility]) [address] [facility], [place], [address], 02/17/2024 10:06:10 02/14/20 24 02/17/2024 URINE CULTU [...] thopr im/Kumar lfa S Not Available [facility] ([facility]) [address] [facility], [place], [address], 02/17/2024 10:06:10 Result Notes None recorded. Medical [...] Available Not Available N ot Available [employer] kit USE DIRECTED active Not Available [...] Available No t Available Vitals Date Recorded Heart rate Respiratory rate Oxygen saturation Oxygen saturation in Arterial blood by Pulse oximetry Body temperature Systolic blood pressure Diastolic blood pressure Provider Name and Address Organization Details Last Updated DateTime 2 64 /min 16 /min 96 % 96 % 98.4 [degF] 116 mm[Hg] 79 mm[Hg] Prakash Willis MD [address] [place] [address],[address], [place], [address] [place] [address] [employer] 2 22:59:54 Date Recorded Oxygen saturation Oxygen saturation in Arterial blood by Pulse oximetry Body temperature Respiratory rate Heart rate Body weight Systolic blood pressure Diastolic blood pressure Provider Name and Address Organization Details Last Updated DateTime 4 100 % 100 % 98.9 [degF] 16 /min 68 /min 57009.3 2 g 104 mm[Hg] 74 mm[Hg] Not Available [employer] 4 13:04:35 Date Recorded Body height Body weight Respiratory rate Body temperature Oxygen saturation Oxygen saturation in Arterial blood by Pulse oximetry Heart rate Systolic blood pressure Diastolic blood pressure Provider Name and Address Organization Details Last Updated DateTime 4 187.96 cm 241687. 608 g 16 /min 98.6 [degF] 99 % 99 % 80 /min 116 mm[Hg] 71 mm[Hg] Not Available [employer] 4 13:29:45 Date Recorded Oxygen saturation Oxygen saturation in [...] 753 Prakash Willis MD Main - instED [address] [place] [phone] 07/15/2021 22:59:29 12/07/2021 16:05:03 Blister [id number] R23.8 No red flag symptoms- Has close f/u with dermatolog y; may need drainage (likely has collection of blood in blister)- Does not wish to go to urgent care/ED for drainage at this time- Has close f/u with PCP as well- Advised to use bandage to wrap toe 5551 Prakash Willis MD Main - [address] [phone] 03/09/2022 12:31:12 03/11/2022 10:44:07 Pain of right knee joint [id number] 67338 M25.561 Can bear weight. Cannot tolerate NSAIDS; will rx tylenol and encourage f/u with PCP in 1 week [address] ROSY DUCKWORTH MD Main - [address] [phone] 09/22/2023 13:04:26 09/22/2023 21:08:47 Contact dermatitis [id number] L25.9 Evaluation in the field was performed by my economics analyst colleague, as noted above, I provided real-time [...] days ( first dose given by the economics analyst) -Clotrimaz ole cream 1 %-Red flags discussed [...] from the leg or any other concerns. [id number] Manoj Angela MD Main - [facility] [address] [place] [phone] 02/14/2024 13:29:41 02/14/2024 15:51:41 Indwelling urethral urinary catheter in situ [id number] Z96.0 Health Concerns Section Related Observation LastModified by Organization Detai ls LastModified Time None Recorded Concern Status LastModified by Organization Details LastModified Time None Recorded Advance Directives Directive None Recorded Payers Insurance Date Sequence Insurance Name Policy Number Policy Sims Covered Member ID Sims Member ID Guarantor Name 06/11/2023 1 [facility] - DOS PRIOR TO 2022 - DUAL ELIGIBLE (MEDICARE REPLACEMENT/ADV ANTAGE - HMO) Yousif Mcintosh [id number] Yousif Mcintosh 02/14/2024 1 [facility] - DOS ON OR AFTER 2022 - DUAL ELIGIBLE - SHELTER OPTIONS AND ONE CARE (MEDICARE REPLACEMENT/ADV ANTAGE - HMO) Yousif Mcintosh [id number] Yousif Mcintosh Notes Date Note Type Note Provider Name and Address Organization Details Recorded Time 07/15/2021 text/html Per economics analyst an d patient:- patient states that he [...] drainage- no fevers Prakash Willis MD [address] [facility],[address], [place], [address], [facility] - [employer] 07/15/2021 23:02:30 03/09/2022 text/html CRC Nursing Assessment: Reason For Request: Pain in neck and right knee Chief Complaints: Pain PMH: CHF, Diabetes, Hypertension Allergies: No Known Comments: COT ASSEMBLER calling for member to have [facility] visit for atraumatic L knee pain x 2 days no OTC's via English int ................... ................... ................... ................... ................... ................... ................... ........ Claims Analyst Note: Complaint of knee pain x2 days, pt twisted exiting a vehicle and felt a pop. Pt called looking for pain management, no deformities noted no swelling good color to the feet (+) pulses, pt is able to bare weight to transfer, [facility] contacted and ordered 500mg PO Tylenol and was administered, pt educated on RICE techniques and told to follow up with PCP if the pain doesn t change. ................... ................... ................... ................... ................... ................... ................... ........ Disposition: Fulfilled Prakash Willis MD [address] [facility],[address], [place], [address], [employer] 03/09/2022 17:17:03 09/22/2023 text/html CRC Nurse Triage Notes (Clarissa Rae): Reason For Request: Pt's COT ASSEMBLER reporting right leg edema with discharge going on 1 week, with some swelling, redness and discharge Chief Complaints: Edema, Cellulitis PMH: CHF, Diabetes, Hypertension Allergies: No Known Comments: Members COT ASSEMBLER calling in to place a referral, member identified via name and . Member with probable cellulitis. Member with redness and edema to right lower leg for a week. Per COT ASSEMBLER skin is dry and weeping, +pitting, denies warmth, no fever/chills, not on any diuretics. Member with hx of cellulitis. Member would like to be evaluated. Claims Analyst POC Test Results from Jace Arroyo [facility] (13:12:53) pH: 7.406 pH units pCO2: 38.3 mmHg pO2: 27.2 mmHg Na: 141 mmol/L K: 4.7 mmol/L iCa: 1707 mmol/L Cl: 107 mmol/L TCO2: 23.6 mEq/L Hct: 40 % Hb: 13.7 g/dL Glu: 146 mg/dL Lac: 1.22 mmol/L Cr: 1.57 mg/dL BUN: 27 mg/dL A ................... ................... ................... ................... ................... ................... ................... ........ Claims Analyst Note From Jace Arroyo: Pt co rash/bug bites right below right knee. Pt using hydrogen peroxide spray on it. Pt sts it s very itchy and not painful or [...] ................... ........ Disposition: Fulfilled ROSY DUCKWORTH MD [address] [place] [address],[address], [place], [address], [employer] 09/22/2023 14:08:54 02/14/2024 text/html CRC Nurse Triage Notes (Josephien Lilly): Reason For Request: COT ASSEMBLER [facility] calling in, pt experiencing pain near catheter site Chief Complaints: Urinary catheter/nephrostom y tube problems PMH: Congestive Heart Failure, Hypertension, Stroke, Epilepsy/Seizure Disorder, Diabetes Mellitus Type 2 Comments: Went to ER on Monday for urinary retention. New goldman catheter placed. Having pain at insertion site that started today with hematuria. Denies fever, low back pain, or abdominal pain. On coumadin. Claims Analyst Organization Information for Lacho Andrews 5 CUPS and some sugar Legal Name: [employer]. Address: [address] [place] [id number], Chainsaw Mechanic: Kingsely GODOY No.: [id number] Claims Analyst POC Test Results from Lacho Andrews - ALS Blood Glucose Measurement (13:25:24) Blood Glucose: 181 mg/dL Urine Dipstick (:25:27) Urine leukocytes: + TAMMY Urine nitrites: - NIT Urine urobilinogen: - URO Urine protein: ++ PRO Urine pH: 6.5 pH Urine blood: +++ BLO Urine specific gravity: 1.010 SG Urine ketones: +/- KET Urine bilirubin: - CAITLIN Urine glucose: ++++ GLU ................... ................... ................... ................... ................... ................... ................... ........ Claims Analyst Note From Lacho Andrews: [facility] makes pt contact, 79 yom w/ c/c of urinary catheter insertion site pain and hematuria.[facility] obtains pt consent. Vital signs are gathered and urine sample is obtained for testing and culture from catheter tubing. Urine analysis is performed and pt is physically assessed. He is conscious, alert, and oriented and answering all questions appropriately through his COT ASSEMBLER, who is translating for the him. Pt [...] is noted in his catheter bag and COT ASSEMBLER reports a strong ammonia smell to his urine when she emptied his bag this morning.[facility] contacts [facility] and discusses the above assessment and findings. [facility] orders urine to be sent to the lab. Pt is informed he will receive test results in a couple days. [facility] ensures pt and caregiver have no further questions or concerns. [facility] drops urine sample off at [facility] is clear. Report completed by KRISTAL Andrews [id number] [facility] Lab Orders: culture, urine: Performed ................... ................... ................... ................... ................... ................... ................... ........ [facility] Consulted: Manoj Angela ................... ................... ................... ................... ................... ................... ................... ........ Disposition: Fulfilled Manoj Angela MD [address] [facility],[address], [place], [address], [employer] 02/14/2024 14:39:55
== END 2024-10-15 14:56 | disposition home or self-care (01) ==
LOC: HO.HMCH 13:47
PROVIDERS: PCP Internal Medicine; Visit Provider Internal Medicine
DX: E11.9 Type 2 diabetes mellitus without complications (principal)

== ENCOUNTER → 2024-10-15 13:46 | Outpatient (BNVA) | payer OTHER, SELFPAY | PROVIDERS: PCP Internal Medicine; Visit Provider Internal Medicine | DX: I48.11 Longstanding persistent atrial fibrillation (principal); I69.351 Hemiplegia and hemiparesis following cerebral infarction affecting right dominant side; C61 Malignant neoplasm of prostate; E11.22 Type 2 diabetes mellitus with diabetic chronic kidney disease; I50.32 Chronic diastolic (congestive) heart failure; N18.9 Chronic kidney disease, unspecified; R32 Unspecified urinary incontinence; F32.0 Major depressive disorder, single episode, mild; I42.2 Other hypertrophic cardiomyopathy; I89.0 Lymphedema, not elsewhere classified; Z19.1 Hormone sensitive malignancy status | CPT/HCPCS: 83036; 96127; 99212 ==

== ENCOUNTER 2024-12-08 11:27 | Emergency (ER) | payer OTHER, SELFPAY ==
--- NOTE | ~2024-12-08 | CT_ITS ---
CLINICAL HISTORY: AB Pain, tender, Loose stool, renal func prec cont CT abdomen and pelvis without contrast Comparison: CT/REG/SR - CT ABDOMEN PELVIS WITHOUT IV CONTRAST - 03/27/24 08:[address]/REG/AR/SR - CT ABDOMEN PELVIS WITHOUT IV CONTRAST - 12/08/23 14:[address]/SR - CT ABDOMEN PELVIS WITHOUT IV CONTRAST - 02/13/23 17:31 EDT Findings: No consolidation at the lung bases. Mild increased subpleural reticulation. Subsegmental atelectasis versus linear scarring. Cardiomegaly. Cholelithiasis. No gallbladder wall thickening or pericholecystic fluid. Underdistended bladder. Abnormal prostate measuring 6.9 x 4.7 x 4.4 cm, previously measuring 7.4 x 5.1 cm, which invades left paravesical space with loss of the fat plane between the prostate in the adjacent musculature. No osseous or rectal invasion. Pancreatic lipomatosis. heterogeneous lesion in the right upper quadrant measuring 4.1 x 5.0 x 3.5 cm which contains soft tissue and fat attenuation with calcification. 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 This is similar in size and appearance to the prior study. The [other solid organs are unremarkable. No bowel wall thickening or dilation. A normal appendix is identified. Colonic diverticulosis. No aneurysm. Severe calcified atherosclerotic disease. No lymphadenopathy. No ascites. No acute osseous abnormality. Status post fixation of the right proximal femur. Intact hardware. No osseous lesions to indicate metastatic disease. Impression: No acute findings. Interval increase in size of the abnormal prostate which invades the left paravesical space and adjacent musculature, presumed malignant. This document has been electronically signed by: Tanja Loera MD on 12/08/2024 16:54:50
--- NOTE | 2024-12-08 11:57 | ED_ITS ---
HPI - General Adult General Chief complaint: Abdominal Pain Stated complaint: diarrhea, abd pain Time Seen by Provider: 12/08/24 13:31 History of Present Illness ED Provider: Zuleika CALIXTO narrative: The patient is a 79-year-old male with a history of a stroke that left him with chronic right-sided deficits. This has a affected his ability to walk and he gets around primarily in a wheelchair. He lives in his own apartment. He has policy issue clerk who help him. He says he has been having loose stools for the last week. He has been having 2-3 loose stools per day. He describes the loose stools as watery and dark. He has had some right-sided abdominal pain. No nausea or vomiting. He has had a decreased appetite. Today he had his PHONE SPECIALIST drive him to the hospital for evaluation of the symptoms. Related Data Previous Rx's ?Medication ?Instructions ?Recorded power wheelchair #1 ea 02/27/21 blood-glucose meter ([employer] #1 ea 01/11/23 Ultra2 Meter) lancets 30 gauge (Onetouch Delica #100 ea 01/11/23 Safety Lancet) adult diapers pull-ups #240 ea 09/05/23 gloves #200 ea 09/05/23 incontinent wipes #200 ea 09/05/23 allopurinol 100 mg tablet 100 mg PO DAILY #90 tabs 06/10 underpads (Bed Underpads) #150 ea 01/30/24 wipes #200 ea 01/30/24 nebulizers (VixOne Nebulizer-Adult #1 ea 01/31/24 Mask) bed side table #1 ea 02/22/24 commode (bedside commode) #1 ea 02/22/24 Legs rests for Dynaride 19 TWC #1 ea 07/08/24 non elevating magnesium oxide 400 mg PO DAILY 90 days #90 caps 08/09/24 finasteride 5 mg tablet 5 mg PO DAILY 90 days #90 ta bs 09/11/24 levetiracetam 750 mg tablet 750 mg PO BID 3 months #18 0 tabs 09/11/24 tamsulosin 0.4 mg capsule 0.4 mg PO DAILY 3 months #90 caps 09/11/24 atorvastatin 40 mg tablet 40 mg PO BEDTIME 90 days #90 tabs 10/04/24 empagliflozin 10 mg tablet 10 mg PO DAILY 90 days #90 tabs 10/04/24 (Jardiance) metoprolol succinate 25 mg 12.5 mg (1/2 x 25 mg) PO DA MARY GRACE #90 10/10/24 tablet,extended release 24 hr tabs warfarin 2.5 mg tablet 2.5 mg PO SUTUWETHSA #30 tab s 10/15/24 warfarin 5 mg tablet 5 mg PO MOFR #30 tabs famotidine 20 mg tablet 20 mg PO DAILY PRN heartburn 30 11/04/24 days #30 tabs hydrocortisone 5 mg tablet (Cortef) 10 mg (2 x 5 mg) P O DAILY #120 tabs 11/04/24 metformin 500 mg tablet 500 mg PO DAILY 90 days #90 tabs 11/07/24 mirtazapine 15 mg tablet 15 mg PO BEDTIME 3 months #9 0 tabs 11/07/24 blood sugar diagnostic (OneTouch #100 ea 12/03/24 Ultra Test strips) ferrous sulfate 325 mg (65 mg 325 mg PO DAILY 60 days #60 tabs 12/04/24 iron) tablet fluoxetine 20 mg capsule 20 mg PO DAILY 90 days #90 c aps 12/04/24 Allergies Allergy/AdvReac Type Severity Reaction Status Date / Time No Known Allergies Allergy Verified 12/08/24 11:58 Review of Systems 2 Review of Systems: Yes all other systems are reviewed and are negative [facility] Past Medical History Medical History Renal insufficiency CKD (chronic kidney disease) Physical exam Iron deficiency anemia Psoriasis Stroke Seizures Dyslipidemia BPH (benign prostatic hyperplasia) Hypovitaminosis D Gout Abnormal laboratory test Hypertension Diabetes Surgical History History of open reduction and internal fixation (ORIF) procedure History of kidney stones Family History Family History Mother Heart problem Father Bone cancer Social History Social History Household Members: None Household Members Other:: PHONE SPECIALIST during the day Housing: Apartment Are you a primary residential child care counselor to a significant other at home: No Do you presently have visiting nurse or other home services: Yes Unable to assess alcohol history related to: Unknown Alcohol intake: former Comment: Oxycodone PO Patient Tobacco Use Status: Never used Tobacco e-Cigarette/Vaping Use: Never Used Second Hand Smoke Exposure: No Advance Directives Date on File: 12/20/11 service: No Current occupational status: disabled Cognitive needs: Yes (wheelchair) Hearing needs: No Vision needs: No Physical Exam ED Vital Signs: Vital Signs - 24 hr 12/08/24 11:58 12/08/24 14:28 12/08/24 16:19 Temperature 98.2 F Pulse Rate 63 63 74 Respiratory Rate 18 18 16 Blood Pressure 105/70 110/72 148/96 H Pulse Oximetry 96 98 100 Oxygen Delivery Method Room Air Room Air Room Air 12/08/24 17:30 Temperature 98.2 F Pulse Rate 74 Respiratory Rate 16 Blood Pressure 148/96 H Pulse Oximetry 100 Oxygen Delivery Method Room Air BMI result Body Mass Index 28.2 Const Other: The patient is a chronically ill-appearing obese man who was awake and alert. He does not appear obviously ill. He looks quite chronically deconditioned. HENMT Other: The face is symmetrical. ?Mucous membranes moist. Eyes Other: Pupils are round equal, conjunctivae are clear, extraocular movements intact Neck Other: The patient has a thick neck. No obvious abnormalities. No JVD apparent. Resp Effort & Inspection: normal respiratory effort Auscultation: clear to auscultation bilaterally Cardio Rate: regular rate Rhythm: regular rhythm Heart sounds: S1 normal heart sound present and S2 normal heart sound present GI Other: The patient has a large, protuberant abdomen. The abdomen was soft but there seemed to be tenderness on the right side of the abdomen at the level of the umbilicus. No rigidity. rectal exam revealed no significant stool in the rectum. There was a residue of greenish stool. No melena. Skin Other: Skin is dry and unremarkable Neuro Other: the patient is awake and alert. He seems to have normal mental status and seems appropriately oriented. He was interviewed using a Singaporean speech language pathologist prn but he seemed to understand Bengali quite well. He has some right- sided weakness. He moves his left arm and leg well. Extrem Other: Some mild nonpitting edema to the lower legs. Course Course Course Narrative: RME, this is a rapid medical exam performed by James Allen please refer to primary provider for complete H&P- 79 year old male with past medical history significant for congestive heart failure, atrial fibrillation, diabetes, hypertension, chronic kidney disease, seizure disorder previous CVA, BPH, presents for evaluation of abdominal pain and diarrhea for the last 5 days. Denies any recent travel or antibiotic use. Plan for basic labs. Medications Administered Discontinued Medications Generic Name Dose Route Start Last Admin Trade Name [place] PRN Reason Stop Dose Admin Lactated Ringer's 1,000 mls @ 999 mls/hr 12/08/24 15:00 12/08/24 16:32 Lr IV 12/08/24 16:00 Infused .Q1H1M AKIN Infusion Sucralfate 1 gm 12/08/24 17:05 12/08/24 17:28 Sucralfate Oral Suspension 1 Gm/10 Ml Oral.Susp PO 12/08/24 17:06 1 gm ONCE ONE Administration Medical Decision Making Medical Decision Making [facility] Narrative: The patient is a 79-year-old male with a history of a stroke which has left him with right-sided deficits. This has been a disabling stroke and he gets around in a wheelchair. nevertheless he lives independently in his own apartment with PHONE SPECIALIST assistance. He is on warfarin. He had his INR checked a couple of days ago and was therapeutic. He had labs today that are unremarkable. An INR had not been drawn initially. I do not see an indication for a repeat INR. The patient is here with a complaint of several days of watery stools and some right-sided abdominal discomfort and mild tenderness. He has chronic renal insufficiency and diabetes. His creatinine was too high to allow use of IV contrast. I felt that perhaps he might have colitis. We did a noncontrast CT of the abdomen and pelvis that did not show any acute findings. Additionally there did not seem to be liquid stool in his colon. Also the patient describes his stools as dark. On my rectal exam there was only a small amount of stool material which was green in appearance. There was no melena. He had no ongoing diarrhea in the emergency room. He does not appear obviously acutely ill to me. He was given a dose of sucralfate. He will be discharged to continue his usual medications. He should follow up with his PCP. He should return if worse. Lab Data 12/08/24 12:08 12/08/24 12:08 Labs: Lab Results 12/08/24 Range/Units 12:08 WBC 8.1 (4.8-10.8) X10*3/uL RBC 4.45 L (4.60-5.80) X10*6/uL Hgb 12.2 L (14.0-18.0) g/dl Hct 37.0 L (42.0-52.0) % MCV 83.1 (80.0-98.0) fL MCH 27.4 (27.0-33.0) pg MCHC 33.0 (31.0-36.0) g/dl RDW 14.7 (11.0-16.0) % Plt Count 185 (160-400) X10*3/uL MPV 11.1 (9.4-12.4) fL Immature Gran % (Auto) 0.2 (0.0-0.4) % Neut % (Auto) 61.1 (45-73) % Lymph % (Auto) 24.1 (20-40) % Douglas % (Auto) 6.1 (2-11) % Eos % (Auto) 7.8 H (0-4) % Baso % (Auto) 0.7 (0-2) % Lymph # (Auto) 2.0 (1.2-4.9) X10*3/uL Douglas # (Auto) 0.5 (0.1-1.2) X10*3/uL Eos # (Auto) 0.6 H (0.0-0.4) X10*3/uL Baso # (Auto) 0.1 (0.0-0.2) X10*3/uL Abs Immat Gran (auto) 0.02 (0.00-0.03) X10*3/uL Absolute Neuts (auto) 4.9 (2.0-8.3) x10*3/uL Absolute Nucleated RBC 0.000 (0.0-0.012) X10*3/uL Nucleated RBC % (auto) 0.0 (0.0-0.2) /100WBC Sodium 143 (135-145) mmol/L Potassium 4.0 (3.3-5.1) mmol/L Chloride 114 H (96-108) mmol/L Carbon Dioxide 21 L (22-29) mmol/L Anion Gap 12 (12-20) BUN 29 H (9-16) mg/dL Creatinine 1.84 H (0.5-1.4) mg/dL Estim Creat Clear Calc 41.7 Estimated GFR 36 Random Glucose 114 (60-115) mg/dL Calcium 8.7 D (8.4-10.2) mg/dL Total Bilirubin 0.5 (0.0-1.0) mg/dL AST 16 (5-37) U/L ALT < 6 (0-40) U/L Alkaline Phosphatase 159 H (39-117) U/L C-Reactive Protein 1.68 H (< or = 0.50) mg/dL Total Protein 6.5 (6.5-8.0) g/dL Albumin 3.9 (3.5-5.0) g/dL Lipase 16 (8-78) U/L Discharge Plan Discharge Clinical Impression: Abdominal pain, Loose stools Patient Disposition: Home, Self-Care Additional Instructions: Your testing today does not show any obviously concerning process. Please continue your regular medications. Please follow up soon with your regular doctor. Return to the emergency room if worse. Prescriptions: No Action (DME) power wheelchair See Rx Instructions .Route .MEDSUPPLY Qty: 1 0RF Rx Instructions: As directed (DME) blood-glucose meter [OneTouch Ultra2 Meter] Misc See Rx Instructions .Route Qty: 1 0RF Rx Instructions: test once per day (DME) lancets [Onetouch Delica Safety Lancet] 30 gauge misc See Rx Instructions .Route Qty: 100 4RF Rx Instructions: test once per day (DME) adult diapers pull-ups XL See Rx Instructions .Route .MEDSUPPLY Qty: 240 11RF Rx Instructions: As directed (DME) gloves Medium See Rx Instructions .Route .MEDSUPPLY Qty: 200 0RF Rx Instructions: As directed (DME) incontinent wipes See Rx Instructions .Route .MEDSUPPLY Qty: 200 0RF Rx Instructions: As directed allopurinol 100 mg tablet 100 mg PO DAILY Qty: 90 6RF (DME) underpads [Bed Underpads] Pad See Rx Instructions .Route Qty: 150 11RF Rx Instructions: As directed (DME) wipes See Rx Instructions .Route .MEDSUPPLY Qty: 200 11RF Rx Instructions: As directed (DME) nebulizers [VixOne Nebulizer-Adult Mask] [facility] [place] [place] See Rx Instructions .Route Qty: 1 0RF Rx Instructions: As directed- tube like (DME) bedside commode Kit See Rx Instructions .Route Qty: 1 0RF Rx Instructions: As directed (DME) bed side table See Rx Instructions .Route .MEDSUPPLY Qty: 1 0RF Rx Instructions: As directed (DME) Legs rests for Dynaride 19 TWC non elevating See Rx Instructions .Route .MEDSUPPLY Qty: 1 0RF Rx Instructions: Use daily prn magnesium oxide 400 mg magnesium capsule 400 mg PO DAILY 90 Days Qty: 90 1RF finasteride 5 mg tablet 5 mg PO DAILY 90 Days Qty: 90 1RF tamsulosin 0.4 mg capsule 0.4 mg PO DAILY 90 Days Qty: 90 1RF levetiracetam 750 mg tablet 750 mg PO BID 90 Days Qty: 180 1RF Jardiance 10 mg tablet 10 mg PO DAILY 90 Days Qty: 90 1RF atorvastatin 40 mg tablet 40 mg PO BEDTIME 90 Days Qty: 90 3RF metoprolol succinate 25 mg tablet extended release 24 hr 12.5 mg PO DAILY Qty: 90 0RF hydrocortisone [Cortef] 5 mg tablet 10 mg PO DAILY Qty: 120 3RF famotidine 20 mg tablet 20 mg PO DAILY PRN (Reason: heartburn) 30 Days Qty: 30 2RF metformin 500 mg tablet 500 mg PO DAILY 90 Days Qty: 90 1RF mirtazapine 15 mg tablet 15 mg PO BEDTIME 90 Days Qty: 90 3RF (DME) OneTouch Ultra Test Strip See Rx Instructions .Route Qty: 100 4RF Rx Instructions: test once per day fluoxetine 20 mg capsule 20 mg PO DAILY 90 Days Qty: 90 1RF ferrous sulfate 325 mg (65 mg iron) tablet 325 mg PO DAILY 60 Days Qty: 60 6RF warfarin 5 mg tablet 5 mg PO MOFR Qty: 30 0RF Protocol: Dose Management Condition: Monday (Week One) Dose/Route: 2.5 mg Instruction: 1 x 2.5 mg tablet Condition: Monday Dose/Route: 2.5 mg Instruction: 1 x 2.5 mg tablet Condition: Monday Dose/Route: 2.5 mg Instruction: 1 x 2.5 mg tablet Condition: Monday Dose/Route: 2.5 mg Instruction: 1 x 2.5 mg tablet Condition: Dose/Route: 5 mg Instruction: 1 x 5 mg tablet Condition: Monday Dose/Route: 2.5 mg Instruction: 1 x 2.5 mg tablet Condition: Monday Dose/Route: 2.5 mg Instruction: 1 x 2.5 mg tablet Condition: Monday ( Two) Dose/Route: 2.5 mg Instruction: 1 x 2.5 mg tablet Condition: Monday Dose/Route: 2.5 mg Instruction: 1 x 2.5 mg tablet Condition: Monday Dose/Route: 2.5 mg Instruction: 1 x 2.5 mg tablet Condition: Monday Dose/Route: 2.5 mg Instruction: 1 x 2.5 mg tablet Condition: Dose/Route: 5 mg Instruction: 1 x 5 mg tablet Condition: Monday Dose/Route: 2.5 mg Instruction: 1 x 2.5 mg tablet Condition: Monday Dose/Route: 2.5 mg Instruction: 1 x 2.5 mg tablet Protocol Text: Adjustment Start Date: Monday12/04/24 INR Value: 2.3 INR Date: 12/04/24 Recheck Date: 12/18/24 warfarin 2.5 mg tablet 2.5 mg PO SUTUWETHSA Qty: 30 6RF Protocol: Dose Management Condition: Monday (Week One) Dose/Route: 2.5 mg Instruction: 1 x 2.5 mg tablet Condition: Monday Dose/Route: 2.5 mg Instruction: 1 x 2.5 mg tablet Condition: Monday Dose/Route: 2.5 mg Instruction: 1 x 2.5 mg tablet Condition: Monday Dose/Route: 2.5 mg Instruction: 1 x 2.5 mg tablet Condition: Dose/Route: 5 mg Instruction: 1 x 5 mg tablet Condition: Monday Dose/Route: 2.5 mg Instruction: 1 x 2.5 mg tablet Condition: Monday Dose/Route: 2.5 mg Instruction: 1 x 2.5 mg tablet Condition: Monday ( Two) Dose/Route: 2.5 mg Instruction: 1 x 2.5 mg tablet Condition: Monday Dose/Route: 2.5 mg Instruction: 1 x 2.5 mg tablet Condition: Monday Dose/Route: 2.5 mg Instruction: 1 x 2.5 mg tablet Condition: Monday Dose/Route: 2.5 mg Instruction: 1 x 2.5 mg tablet Condition: Dose/Route: 5 mg Instruction: 1 x 5 mg tablet Condition: Monday Dose/Route: 2.5 mg Instruction: 1 x 2.5 mg tablet Condition: Monday Dose/Route: 2.5 mg Instruction: 1 x 2.5 mg tablet Protocol Text: Adjustment Start Date: Monday12/04/24 INR Value: 2.3 INR Date: 12/04/24 Recheck Date: 12/18/24 Referrals: Poonam Hernandez MD [Primary Care Provider, Internal Medicine] Interventions: ED Discharge Assessment Last Done: 12/08/24 17:30 Discharge Date/Time: 12/08/24 17:33 Print Language: Singaporean
[2024-12-08 11:58] VITALS: BP 105/70; PULSE 63; RESP 18; TEMP 36.8; O2SAT 96; BMI 28.2
[2024-12-08 12:16] LABS: MANUAL DIFF FLAG NO
[2024-12-08 12:18] LABS: Hematocrit 37.0 % (42.0-52.0); Hemoglobin 12.2 g/dl (14.0-18.0); Imm Gran Abs Auto 0.02 X10*3/uL (0.00-0.03); Imm Gran Pct Auto 0.2 % (0.0-0.4); Lymphocytes Absolute Auto 2.0 X10*3/uL (1.2-4.9); Mean Corpuscular HGB Conc 33.0 g/dl (31.0-36.0); Mean Corpuscular Hemoglobin 27.4 pg (27.0-33.0); Mean Corpuscular Volume 83.1 fL (80.0-98.0); NRBC Abs Auto 0.000 X10*3/uL (0.0-0.012); NRBC Pct Auto 0.0 /100WBC (0.0-0.2); Platelet Count 185 X10*3/uL (160-400); Red Blood Count 4.45 X10*6/uL (4.60-5.80); White Blood Count 8.1 X10*3/uL (4.8-10.8)
[2024-12-08 12:54] LABS: Alanine Aminotransferase < 6 U/L (0-40); Albumin Level 3.9 g/dL (3.5-5.0); Alkaline Phosphatase 159 U/L (39-117); Anion Gap 12 (12-20); Aspartate Amino Transferase 16 U/L (5-37); Blood Urea Nitrogen 29 mg/dL (9-16); Calcium 8.7 mg/dL (8.4-10.2); Carbon Dioxide 21 mmol/L (22-29); Chloride 114 mmol/L (96-108); Creatinine Clr Calc Pharmacy 41.7; Estimated Glomerular Filt Rate 36; Lipase 16 U/L (8-78); Potassium 4.0 mmol/L (3.3-5.1); Sodium 143 mmol/L (135-145); Total Protein 6.5 g/dL (6.5-8.0)
--- OUTSIDE RECORDS SUMMARY | 2024-12-08 13:00 | XMS_ITS | Clinical Summary ---
Author Organization [employer] Address [address] [place] [address] [address] [place] [address] Care Team Providers Care Fabric Stretcher Name Role Phone Unavailable Primary Care Provider [...] season) 2023 07/09/2020, 06/11/2020 Influenza Vaccine (#1) 2024 , 03/30/2023, 03/22/2006 HIB Vaccines Aged Out [...]
--- OUTSIDE RECORDS SUMMARY | 2024-12-08 13:00 | XMS_ITS | Clinical Summary ---
Author Organization [facility] Address [address] [place] [address] Phone Care Team Providers Care Electrical Supervisor Name Role Phone Poonam Hernandez MD Primary Care Provider [phone] Allergies Active Allergy Reactions Criticality Noted Date [...] Visual Foot Exam 07/08/2019 Influenza Vaccine (#1) 2024 Hepatitis B Vaccine Aged Out No longe r eligible based on patient's age to complete this topic Insurance [facility] [place] [id number] [facility] [place] [id number] Care Teams Electrical Supervisor Relationship Specialty Start Date End Date Poonam Hernandez MD [address] [place], [place] PCP - General Internal Medicine 04/14/21
[2024-12-08 14:28] VITALS: BP 110/72; PULSE 63; RESP 18; O2SAT 98
[2024-12-08] MEDS: Lactated Ringers 1,000 ML 999 ML IV (15:15)
[2024-12-08 16:19] VITALS: BP 148/96; PULSE 74; RESP 16; O2SAT 100
[2024-12-08] MEDS: Sucralfate Oral Suspension 1 GM/10 ML ORAL.SUSP PO (17:28)
[2024-12-08 17:30] VITALS: BP 148/96; PULSE 74; RESP 16; TEMP 36.8; O2SAT 100
== END 2024-12-08 17:33 | disposition home or self-care (01) ==
PROVIDERS: Physician Assistant; Emergency Provider Emergency Medicine; PCP Internal Medicine
DX: R10.9 Unspecified abdominal pain (principal); R19.7 Diarrhea, unspecified; Z99.3 Dependence on wheelchair; Z86.73 Personal history of transient ischemic attack (TIA), and cerebral infarction without residual deficits
CPT/HCPCS: 36415; 74176; 80053; 83690; 85025; 86140; 99284; 99285; J7120

== ENCOUNTER → 2024-12-08 15:03 | Outpatient (BNV) | payer OTHER, SELFPAY | PROVIDERS: Emergency Provider Emergency Medicine; PCP Internal Medicine; Visit Provider Radiology Diagnostic Radiology | DX: R10.31 Right lower quadrant pain (principal) | CPT/HCPCS: 74176 ==

== ENCOUNTER 2025-01-02 10:21 | Emergency (ER) | payer OTHER, SELFPAY ==
[2025-01-02 10:41] VITALS: BP 152/78; PULSE 68; RESP 12; TEMP 36.8; O2SAT 99; BMI 26.9
[2025-01-02 10:47] VITALS: BP 152/78; PULSE 68; RESP 12; TEMP 36.8; O2SAT 99
--- NOTE | 2025-01-02 10:50 | PC.NURSE ---
Pt comes to ED today with c/o generalized itch, with focus on lower extremities and chest. Pt and report symptoms started about 1 week ago. They report he was seen at a clinic and prescribed topical and Prednisone but report they have been ineffective. Denies any new lotions, detergents, or soaps. Denies allergies and any previous similar incidents. Pt also reports dizziness with standing; Pt uses a walker at baseline. A&Ox3 VSS, afebrile. Bilat lower extremities presents with dry scaly areas, as well as scratches and open areas to knees. Scant amount of clear drainage noted to open areas. Pt noted to scratch his chest during initial assessment. Speech and breaths are even and unlabored. NAD noted. Awaiting ED provider.
--- NOTE | 2025-01-02 11:29 | ED_ITS ---
HPI - General Adult General Chief complaint: General Medical Stated complaint: rash Time Seen by Provider: 01/02/25 11:07 Source: patient, family (DIRECTOR OF CATERING) and labeling specialist Mode of arrival: ambulatory Limitations: no limitations History of Present Illness ED Provider: DR. Ocasio HPI narrative: 79-year-old male presented with his DIRECTOR OF CATERING for evaluation of generalized itching and skin rashes patient has been constantly itching for the past 3-5 days, patient currently is receiving prednisone orally and hydrocortisone on the skin with no relief of the itching, no jaundice, no fever or chills Related Data Previous Rx's ?Medication ?Instructions ?Recorded power wheelchair #1 ea 02/27/21 blood-glucose meter (OneTouch #1 ea 01/11/23 Ultra2 Meter) lancets 30 gauge (Onetouch Delica #100 ea 01/11/23 Safety Lancet) adult diapers pull-ups #240 ea 09/05/23 gloves #200 ea 09/05/23 incontinent wipes #200 ea 09/05/23 allopurinol 100 mg tablet 100 mg PO DAILY #90 tabs 06/10 underpads (Bed Underpads) #150 ea 01/30/24 wipes #200 ea 01/30/24 nebulizers (VixOne Nebulizer-Adult #1 ea 01/31/24 Mask) bed side table #1 ea 02/22/24 commode (bedside commode) #1 ea 02/22/24 Legs rests for Dynaride 19 TWC #1 ea 07/08/24 non elevating magnesium oxide 400 mg PO DAILY 90 days #90 caps 08/09/24 finasteride 5 mg tablet 5 mg PO DAILY 90 days #90 ta bs 09/11/24 levetiracetam 750 mg tablet 750 mg PO BID 3 months #18 0 tabs 09/11/24 tamsulosin 0.4 mg capsule 0.4 mg PO DAILY 3 months #90 caps 09/11/24 atorvastatin 40 mg tablet 40 mg PO BEDTIME 90 days #90 tabs 10/04/24 empagliflozin 10 mg tablet 10 mg PO DAILY 90 days #90 tabs 10/04/24 (Jardiance) metoprolol succinate 25 mg 12.5 mg (1/2 x 25 mg) PO DA MARY GRACE #90 10/10/24 tablet,extended release 24 hr tabs warfarin 2.5 mg tablet 2.5 mg PO SUTUWETHSA #30 tab s 10/15/24 warfarin 5 mg tablet 5 mg PO MOFR #30 tabs famotidine 20 mg tablet 20 mg PO DAILY PRN heartburn 30 11/04/24 days #30 tabs hydrocortisone 5 mg tablet (Cortef) 10 mg (2 x 5 mg) P O DAILY #120 tabs 11/04/24 metformin 500 mg tablet 500 mg PO DAILY 90 days #90 tabs 11/07/24 mirtazapine 15 mg tablet 15 mg PO BEDTIME 3 months #9 0 tabs 11/07/24 blood sugar diagnostic (OneTouch #100 ea 12/03/24 Ultra Test strips) ferrous sulfate 325 mg (65 mg 325 mg PO DAILY 60 days #60 tabs 12/04/24 iron) tablet fluoxetine 20 mg capsule 20 mg PO DAILY 90 days #90 c aps 12/04/24 permethrin 5 % topical cream 1 appl topical Q14D 2 dos es #60 01/02/25 grams Allergies Allergy/AdvReac Type Severity Reaction Status Date / Time No Known Allergies Allergy Verified 01/02/25 10:46 Review of Systems 2 Review of Systems: All other systems are reviewed and are negative Constitutional: Reports as per HPI and Reports no additional constitutional complaints Eyes: Reports as per HPI and Reports no additional eye complaints Reports system reviewed and no additional complaints, except as documented Cardiovascular: Reports as per HPI and Reports no additional cardiovascular complaints Respiratory: Reports as per HPI and Reports no additional respiratory complaints Gastrointestinal: Reports as per HPI and Reports no additional gastrointestinal complaints Genitourinary: Reports no additional female genitourinary complaints Musculoskeletal: Reports no additional musculoskeletal complaints Skin/Breast: Reports system reviewed and no additional complaints, except as docu Psychiatric: Reports no additional psychiatric complaints Endocrine: Reports no additional endocrine complaints Hematologic/Lymphatic: Reports no additional hematologic/lymphatic complaints Allergic/Immunologic: Reports no additional allergic/immunologic complaints Reports system reviewed and no additional complaints, except as documented and Reports Abnormal speech present [facility] Past Medical History Medical History Renal insufficiency CKD (chronic kidney disease) Physical exam Iron deficiency anemia Psoriasis Stroke Seizures Dyslipidemia BPH (benign prostatic hyperplasia) Hypovitaminosis D Gout Abnormal laboratory test Hypertension Diabetes Surgical History History of open reduction and internal fixation (ORIF) procedure History of kidney stones Family History Family History Mother Heart problem Father Bone cancer Social History Social History Household Members: None Household Members Other:: DIRECTOR OF CATERING during the day Housing: Apartment Are you a primary care transition coordinator to a significant other at home: No Do you presently have visiting nurse or other home services: Yes Unable to assess alcohol history related to: Unknown Alcohol intake: former Comment: Oxycodone PO Patient Tobacco Use Status: Never used Tobacco Smoked in Last 30 Days: No e-Cigarette/Vaping Use: Never Used Second Hand Smoke Exposure: No Use of substances other than those prescribed or required for medical reasons: No Advance Directives: No Advance Directives Information Provided: Yes Advance Directives Date on File: 12/20/11 Do you have a plan to hurt others: No Plan service: No Current occupational status: disabled Cognitive needs: Yes (wheelchair) Hearing needs: No Vision needs: No Physical Exam ED Vital Signs: Vital Signs - 24 hr 01/02/25 10:41 01/02/25 10:47 01/02/25 16:40 Temperature 98.3 F 98.3 F 98.1 F Pulse Rate 68 68 66 Respiratory Rate 12 12 16 Blood Pressure 152/78 H 152/78 H 134/88 Pulse Oximetry 99 99 98 Oxygen Delivery Method Room Air Room Air Room Air BMI result Body Mass Index 26.9 Vital signs have been reviewed and appear to be correct. Blood pressure elevated. Heart rate normal. Respiratory rate normal. Temperature normal. Oxygen saturation normal. Appearance: Alert. Oriented X3. No acute distress. Head: Normal external exam. Normocephalic. Atraumatic. No Dominique signs noted. No raccoon eyes noted Eyes: PERRLA. EOMI. Conjunctiva and sclera normal. Eyelids normal. ENT: TM's Normal. Pharynx normal. Uvula midline. Moist mucous membranes. No trismus noted. No drooling noted. No muffled voice noted. Neck: Normal inspection. Neck supple. FROM. No adenopathy. Thyroid Normal. No meningeal signs. No neck mass noted. CVS: Normal heart rate and rhythm. Heart sound normal. No murmurs noted. Pulses normal throughout. Respiratory: No respiratory distress. Painless inspiration. Breath sounds normal. No wheezes/rales/rhonchi noted. Chest nontender. No accessory muscle usage noted or decreased air movement noted. Abdomen: Soft and nontender. Bowel sounds normal in all 4 quadrants. No distention noted. No organomegaly noted. No visible injury noted. Back: No CVA tenderness. Full range of motion noted. Skin: Bilateral lower legs with intense pruritus, multiple excoriating erythematous lesions likely from scratching no clear burrows, papules or vesicle are visible. Extremities: No lower extremity edema. Extremities exhibit normal range of motion. Extremities nontender. Neuro: Oriented X 3. Cranial nerve exam: II-XII are grossly intact No motor deficit. No sensory deficit. Reflexes normal. Course Reevaluation(s) Reevaluation #1: Skin lesion likely scabies will start on permethrin cream as instructed. Leukocytosis likely secondary to prednisone effect. Hyperkalemia treated with Lokelma potassium is normal at discharge. Time: 16:52 Medications Administered Discontinued Medications Generic Name Dose Route Start Last Admin Trade Name Freq PRN Reason Stop Dose Admin Sodium Zirconium Cyclosilicate 10 gm 01/02/25 12:53 01/02/25 13:41 Sodium Zirconium Cyclosilicate 10 Gm Powd.Pack PO 01/02/25 12:54 10 gm ONCE ONE Administration Medical Decision Making Differential Diagnosis Differential Diagnoses: The differential diagnosis associated with the presentation includes (Excoriated dermatitis, scabies, atopic dermatitis, contact dermatitis, electrolyte derangement, severe anemia.) Admission/Observation Consideration of admission/observation: Escalation of care including admission/observation considered Lab Data [facility] Lab Attestation statement: I reviewed the patient's lab results. 01/02/25 12:05 01/02/25 16:17 Labs: Lab Results 01/02/25 01/02/25 01/02/25 Range/Units 12:05 12:28 16:17 WBC 12.8 H (4.8-10.8) X10*3/uL RBC 4.10 L (4.60-5.80) X10*6/uL Hgb 11.5 L (14.0-18.0) g/dl Hct 34.6 L (42.0-52.0) % MCV 84.4 (80.0-98.0) fL MCH 28.0 (27.0-33.0) pg MCHC 33.2 (31.0-36.0) g/dl RDW 14.6 (11.0-16.0) % Plt Count 168 (160-400) X10*3/uL MPV 10.7 (9.4-12.4) fL Immature Gran % (Auto) 0.5 H (0.0-0.4) % Neut % (Auto) 85.5 H (45-73) % Lymph % (Auto) 9.2 L (20-40) % [place] % (Auto) 4.4 (2-11) % Eos % (Auto) 0.2 (0-4) % Baso % (Auto) 0.2 (0-2) % Lymph # (Auto) 1.2 (1.2-4.9) X10*3/uL [place] # (Auto) 0.6 (0.1-1.2) X10*3/uL Eos # (Auto) 0.0 (0.0-0.4) X10*3/uL Baso # (Auto) 0.0 (0.0-0.2) X10*3/uL Abs Immat Gran (auto) 0.06 H (0.00-0.03) X10*3/uL Absolute Neuts (auto) 11.0 H (2.0-8.3) x10*3/uL Absolute Nucleated RBC 0.000 (0.0-0.012) X10*3/uL Nucleated RBC % (auto) 0.0 (0.0-0.2) /100WBC PT 33.3 H D (10.9-12.4) SEC INR 2.9 H (0.9-1.1) Sodium 144 (135-145) mmol/L Potassium 5.5 H D 4.9 (3.3-5.1) mmol/L Chloride 113 H (96-108) mmol/L Carbon Dioxide 27 (22-29) mmol/L Anion Gap 10 L (12-20) BUN 36 H (9-16) mg/dL Creatinine 1.73 H (0.5-1.4) mg/dL Estim Creat Clear Calc 40.9 Estimated GFR 38 Random Glucose 125 H (60-115) mg/dL Calcium 9.2 (8.4-10.2) mg/dL Total Bilirubin 0.4 (0.0-1.0) mg/dL Direct Bilirubin 0.2 (0.0-0.5) mg/dL AST 14 (5-37) U/L ALT 6 (0-40) U/L Alkaline Phosphatase 134 H (39-117) U/L Total Protein 6.2 L (6.5-8.0) g/dL Albumin 3.8 (3.5-5.0) g/dL Lipase 12 (8-78) U/L Discharge Plan Discharge Clinical Impression: Scabies, Acute hyperkalemia Patient Disposition: Home, Self-Care Instructions: Scabies (ED), Hyperkalemia (ED) Prescriptions: New permethrin 5 % cream 1 appl topical Q14D Qty: 60 0RF Rx Instructions: Apply the cream to all affected area not to the eyes or mucous membrane leave it on your body for 8 hours then rinse with water, apply second treatment 14 days after first treatment if live lice remain No Action (DME) power wheelchair See Rx Instructions .Route .MEDSUPPLY Qty: 1 0RF Rx Instructions: As directed (DME) blood-glucose meter [OneTouch Ultra2 Meter] Misc See Rx Instructions .Route Qty: 1 0RF Rx Instructions: test once per day (DME) lancets [Onetouch Delica Safety Lancet] 30 gauge misc See Rx Instructions .Route Qty: 100 4RF Rx Instructions: test once per day (DME) adult diapers pull-ups XL See Rx Instructions .Route .MEDSUPPLY Qty: 240 11RF Rx Instructions: As directed (DME) gloves Medium See Rx Instructions .Route .MEDSUPPLY Qty: 200 0RF Rx Instructions: As directed (DME) incontinent wipes See Rx Instructions .Route .MEDSUPPLY Qty: 200 0RF Rx Instructions: As directed allopurinol 100 mg tablet 100 mg PO DAILY Qty: 90 6RF (DME) underpads [Bed Underpads] Pad See Rx Instructions .Route Qty: 150 11RF Rx Instructions: As directed (DME) wipes See Rx Instructions .Route .MEDSUPPLY Qty: 200 11RF Rx Instructions: As directed (DME) nebulizers [VixOne Nebulizer-Adult Mask] [facility] [place] Rx Instructions .Route Qty: 1 0RF Rx Instructions: As directed- tube like (DME) bedside commode Kit See Rx Instructions .Route Qty: 1 0RF Rx Instructions: As directed (DME) bed side table See Rx Instructions .Route .MEDSUPPLY Qty: 1 0RF Rx Instructions: As directed (DME) Legs rests for Dynaride 19 TWC non elevating See Rx Instructions .Route .MEDSUPPLY Qty: 1 0RF Rx Instructions: Use daily prn magnesium oxide 400 mg magnesium capsule 400 mg PO DAILY 90 Days Qty: 90 1RF finasteride 5 mg tablet 5 mg PO DAILY 90 Days Qty: 90 1RF tamsulosin 0.4 mg capsule 0.4 mg PO DAILY 90 Days Qty: 90 1RF levetiracetam 750 mg tablet 750 mg PO BID 90 Days Qty: 180 1RF Jardiance 10 mg tablet 10 mg PO DAILY 90 Days Qty: 90 1RF atorvastatin 40 mg tablet 40 mg PO BEDTIME 90 Days Qty: 90 3RF metoprolol succinate 25 mg tablet extended release 24 hr 12.5 mg PO DAILY Qty: 90 0RF hydrocortisone [Cortef] 5 mg tablet 10 mg PO DAILY Qty: 120 3RF famotidine 20 mg tablet 20 mg PO DAILY PRN (Reason: heartburn) 30 Days Qty: 30 2RF metformin 500 mg tablet 500 mg PO DAILY 90 Days Qty: 90 1RF mirtazapine 15 mg tablet 15 mg PO BEDTIME 90 Days Qty: 90 3RF (DME) OneTouch Ultra Test Strip See Rx Instructions .Route Qty: 100 4RF Rx Instructions: test once per day fluoxetine 20 mg capsule 20 mg PO DAILY 90 Days Qty: 90 1RF ferrous sulfate 325 mg (65 mg iron) tablet 325 mg PO DAILY 60 Days Qty: 60 6RF warfarin 5 mg tablet 5 mg PO MOFR Qty: 30 0RF Protocol: Dose Management Condition: Monday (Week One) Dose/Route: 2.5 mg Instruction: 1 x 2.5 mg tablet Condition: Monday Dose/Route: 2.5 mg Instruction: 1 x 2.5 mg tablet Condition: Monday Dose/Route: 2.5 mg Instruction: 1 x 2.5 mg tablet Condition: Monday Dose/Route: 0 mg Instruction: 0 tablets Condition: Dose/Route: 2.5 mg Instruction: 1 x 2.5 mg tablet Condition: Monday Dose/Route: 2.5 mg Instruction: 1 x 2.5 mg tablet Condition: Monday Dose/Route: 2.5 mg Instruction: 1 x 2.5 mg tablet Condition: Monday () Dose/Route: 2.5 mg Instruction: 1 x 2.5 mg tablet Condition: Monday Dose/Route: 2.5 mg Instruction: 1 x 2.5 mg tablet Condition: Monday Dose/Route: 2.5 mg Instruction: 1 x 2.5 mg tablet Condition: Monday Dose/Route: 2.5 mg Instruction: 1 x 2.5 mg tablet Condition: Dose/Route: 2.5 mg Instruction: 1 x 2.5 mg tablet Condition: Monday Dose/Route: 2.5 mg Instruction: 1 x 2.5 mg tablet Condition: Monday Dose/Route: 2.5 mg Instruction: 1 x 2.5 mg tablet Protocol Text: Adjustment Start Date: Monday01/01/25 INR Value: 4.1 INR Date: 01/01/25 Recheck Date: 01/08/25 warfarin 2.5 mg tablet 2.5 mg PO SUTUWETHSA Qty: 30 6RF Protocol: Dose Management Condition: Monday (Week One) Dose/Route: 2.5 mg Instruction: 1 x 2.5 mg tablet Condition: Monday Dose/Route: 2.5 mg Instruction: 1 x 2.5 mg tablet Condition: Monday Dose/Route: 2.5 mg Instruction: 1 x 2.5 mg tablet Condition: Monday Dose/Route: 0 mg Instruction: 0 tablets Condition: Dose/Route: 2.5 mg Instruction: 1 x 2.5 mg tablet Condition: Monday Dose/Route: 2.5 mg Instruction: 1 x 2.5 mg tablet Condition: Monday Dose/Route: 2.5 mg Instruction: 1 x 2.5 mg tablet Condition: Monday ( Two) Dose/Route: 2.5 mg Instruction: 1 x 2.5 mg tablet Condition: Monday Dose/Route: 2.5 mg Instruction: 1 x 2.5 mg tablet Condition: Monday Dose/Route: 2.5 mg Instruction: 1 x 2.5 mg tablet Condition: Monday Dose/Route: 2.5 mg Instruction: 1 x 2.5 mg tablet Condition: Dose/Route: 2.5 mg Instruction: 1 x 2.5 mg tablet Condition: Monday Dose/Route: 2.5 mg Instruction: 1 x 2.5 mg tablet Condition: Monday Dose/Route: 2.5 mg Instruction: 1 x 2.5 mg tablet Protocol Text: Adjustment Start Date: Monday01/01/25 INR Value: 4.1 INR Date: 01/01/25 Recheck Date: 01/08/25 Referrals: Poonam Hernandez MD [Primary Care Provider, Internal Medicine] Print Language: Grenadian
[2025-01-02 12:10] LABS: MANUAL DIFF FLAG NO
[2025-01-02 12:12] LABS: Hematocrit 34.6 % (42.0-52.0); Hemoglobin 11.5 g/dl (14.0-18.0); Imm Gran Abs Auto 0.06 X10*3/uL (0.00-0.03); Imm Gran Pct Auto 0.5 % (0.0-0.4); Lymphocytes Absolute Auto 1.2 X10*3/uL (1.2-4.9); Mean Corpuscular HGB Conc 33.2 g/dl (31.0-36.0); Mean Corpuscular Hemoglobin 28.0 pg (27.0-33.0); Mean Corpuscular Volume 84.4 fL (80.0-98.0); NRBC Abs Auto 0.000 X10*3/uL (0.0-0.012); NRBC Pct Auto 0.0 /100WBC (0.0-0.2); Platelet Count 168 X10*3/uL (160-400); Red Blood Count 4.10 X10*6/uL (4.60-5.80); White Blood Count 12.8 X10*3/uL (4.8-10.8)
[2025-01-02 12:36] LABS: Alanine Aminotransferase 6 U/L (0-40); Albumin Level 3.8 g/dL (3.5-5.0); Alkaline Phosphatase 134 U/L (39-117); Anion Gap 10 (12-20); Aspartate Amino Transferase 14 U/L (5-37); Blood Urea Nitrogen 36 mg/dL (9-16); Calcium 9.2 mg/dL (8.4-10.2); Carbon Dioxide 27 mmol/L (22-29); Chloride 113 mmol/L (96-108); Creatinine Clr Calc Pharmacy 40.9; Estimated Glomerular Filt Rate 38; Lipase 12 U/L (8-78); Potassium 5.5 mmol/L (3.3-5.1); Sodium 144 mmol/L (135-145); Total Protein 6.2 g/dL (6.5-8.0)
[2025-01-02 12:40] LABS: INTERNATIONAL NORM RATIO 2.9 (0.9-1.1); Prothrombin Time 33.3 SEC (10.9-12.4)
--- OUTSIDE RECORDS SUMMARY | 2025-01-02 13:11 | XMS_ITS ---
Author Organization [facility] an d Nursing Care Team Providers Care Services Executive Name Role Phone Carina Wisdom Unavailable Unavailable Choco Pike Unavailable Unavailable Clark Tabares Unavailable Unavailable Allergies and adverse reactions No Known Allergies Care Team Name Role Address Phone Organization Dates Clark Tabares PCP [address] [facility] [address] [address], [place], [address], [facility] (Office): : [facility] 10/18/2022 - 11/02/2022 Carina Wisdom [address] [place], [address], [place] (Office): : [facility] 10/18/2022 - 11/02/2022 Choco Pike [address] [facility] [address], [place], [address], [place] (Office): : : [facility] 10/18/2022 - 11/02/2022 Immunizations Immunization Status Vaccine Details Vaccine Code CodeSystem Date Notes Pneumovax Dose 1 new cre ated date: 01/08/2016 consent date: 01/08/2016 TB 1 Step Mantoux (PPD) completed tuberculin skin test; unspecified formulation lotNumber: [id number] expiry: 08/16/2023 Mfg: par pharmaceutical Given 0.1 ml Right Forearm intradermally 98 CVX created date: 10/20/2022 consent date: 10/20/2022 administer ed date: 10/20/2022 TB 2 Step Mantoux Skin Test completed tuberculin skin test; unspecified formulation lotNumber: [id number] expiry: 12/17/2023 Mfg: par pharmaceutical Given 0.1 ml Left Forearm intradermally Step 1 of Multi-step with next step required 98 CVX created date: 10/27/2022 consent date: 10/27/2022 administer ed date: 10/27/2022 PCV13 (Pneumococcal Conjugate Vaccine) completed pneumococcal conjugate vaccine, 13 valent lotNumber: [id number] expiry: 11/14/2016 Mfg: [employer] Given 0.5 ml Right Deltoid intramuscularly 133 CVX created date: 01/15/2016 consent date: 01/15/2016 administer ed date: 01/15/2016 VIS 08/08/14 Mental Status Section Date Assessment Total Score Description 11/02/2022 BIMS 12 moderate cognit vadim impairment CAM 0 No delirium ind icated PHQ-9 00 10/23/2022 BIMS 13 cognitively int act CAM 0 No delirium ind icated PHQ-9 04 minimal depress ion Problems Problem # Description Date of onset Resolved Date Code CodeSystem Concern Status 1 ANEMIA, UNSPECIFIED [address] active 2 BENIGN PROSTATIC HYPERPLASIA WITH LOWER URINARY TRACT SYMPTOMS [address] active 3 CHRONIC KIDNEY DISEASE, UNSPECIFIED [address] active 4 EPILEPSY, UNSPECIFIED, NOT INTRACTABLE, WITHOUT STATUS EPILEPTICUS [address] active 5 GOUT, UNSPECIFIED [address] active 6 HEMIPLEGIA AND HEMIPARESIS FOLLOWING CEREBRAL INFARCTION AFFECTING RIGHT DOMINANT SIDE [address] active 7 HYPERLIPIDEMIA, UNSPECIFIED [address] active 8 LOW BACK PAIN, UNSPECIFIED [address] active 9 PAIN IN RIGHT SHOULDER [address] active 10 PSORIASIS, UNSPECIFIED [address] active 11 UNSPECIFIED FALL, SUBSEQUENT ENCOUNTER [address] active 12 UNSTEADINESS ON FEET [address] active 13 DIFFICULTY IN WALKING, NOT ELSEWHERE CLASSIFIED [address] active 14 ESSENTIAL (PRIMARY) HYPERTENSION [address] active 15 HISTORY OF FALLING [address] active 16 [address]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 [address] active 17 LOW BACK PAIN 6 10/18/[address] completed 18 MUSCLE WEAKNESS (GENERALIZED) [address] active 19 OTHER CHRONIC PAIN [address] active 20 TYPE 2 DIABETES MELLITUS WITHOUT COMPLICATIONS [address] active 21 UNSPECIFIED ATRIAL FIBRILLATION [address] active 22 UNSPECIFIED SEQUELAE OF NONTRAUMATIC SUBARACHNOID HEMORRHAGE [address] active Reason for Referral No Reasons for Referral Entered Social History Social History Observation Description Start Date End Date Code Code System Current Smoking Status Tobacco smoking consumption unknown 960353881 SNOMED CT Sex Assigned At Male 1945 20303-9 [facility] Gender Identity Sexual Orientation Vital Signs Code Code System Vitals Name Values and Units Timing Information 34888-6 [facility] Pain Level Value=0.0 11/02/2022 9279-1 [facility] Respiratory Rate Value=18.0 Units=/m in 11/01/2022 8462-4 [facility] Blood Pressure-Diastolic Value=69 Un its=mmHg 11/01/2022 8480-6 [facility] Blood Pressure-Systolic Pcxpd=073 Un its=mmHg 11/01/2022 8310-5 [facility] Body Temperature Value=97.2 Units= F 11/01/2022 8867-4 [facility] Heart rate Value=70.0 Units=/min 16113-6 [facility] O2 % BldC Oximetry Value=98.0 Units= % 11/01/2022 23940-6 [facility] Weight Birei=774.0 Units=Lbs 2339-0 [facility] Blood Sugar Uffpi=322.0 Units=mg/dL 10/22/2022 8302-2 [facility] Height Value=74.0 Units=Inches 10/19/2022
--- OUTSIDE RECORDS SUMMARY | 2025-01-02 13:11 | XMS_ITS | Clinical Summary ---
Author Organization [employer] Address [address] [place] [address] [address] [place] [address] Care Team Providers Care Contracts Analyst Name Role Phone Unavailable Primary Care Provider [...] 75+ series) 2021 COVID-19 Vaccine (3 - 2024-2 6 season) 2024 07/09/2020, 06/11/2020 Influenza Vaccine (#1) 2024 , [...]
--- OUTSIDE RECORDS SUMMARY | 2025-01-02 13:11 | XMS_ITS | Clinical Summary ---
Author Organization [facility] Address [address] [place] [address] Phone Care Team Providers Care Supervisor Slitting And Shipping Name Role Phone Poonam Hernandez MD Primary Care Provider [phone] Allergies Active Allergy Reactions Criticality Noted Date [...] to complete this topic Insurance [facility] [place] [id number] [facility] [place] [id number] Care Teams Supervisor Slitting And Shipping Relationship Specialty Start Date End Date Poonam Hernandez MD [address] [place], [place] PCP - General Internal Medicine 04/14/21
[2025-01-02 16:40] VITALS: BP 134/88; PULSE 66; RESP 16; TEMP 36.7; O2SAT 98
[2025-01-02 16:43] LABS: Potassium 4.9 mmol/L (3.3-5.1)
[2025-01-02 18:25] VITALS: BP 136/86; PULSE 66; RESP 12; TEMP 36.7; O2SAT 95
== END 2025-01-02 18:26 | disposition home or self-care (01) ==
PROVIDERS: Emergency Provider Emergency Medicine; PCP Internal Medicine
DX: B86 Scabies (principal); E87.5 Hyperkalemia; N18.9 Chronic kidney disease, unspecified; I10 Essential (primary) hypertension; E11.9 Type 2 diabetes mellitus without complications; Z79.899 Other long term (current) drug therapy
CPT/HCPCS: 36415; 80048; 80076; 83690; 84132; 85025; 85610; 99283; 99284

== ENCOUNTER 2025-01-11 16:59 | Emergency (ER) | payer OTHER, SELFPAY ==
--- NOTE | ~2025-01-11 | XR_ITS ---
CLINICAL HISTORY: pain 3 views lumbar spine Comparison: None provided Findings: Degenerative straightening of the usual lumbar lordosis. No listhesis. Moderate lower lumbar spine degenerative changes. No acute finding. No evidence of acute fracture. Moderate lower lumbar spine degenerative changes characterized by disc height loss with degenerative endplate change and severe facet hypertrophy. Suspected sgxduzij-tq-zvzzqo bilateral neural foraminal narrowing at L4-L5, L3-L4, and possibly L2-L3. IMPRESSION: No acute findings. This document has been electronically signed by: Raymon Isabel MD on 01/11/2025 19:29:44
[2025-01-11 17:02] VITALS: BP 130/86; PULSE 65; O2SAT 97; BMI 34.0
[2025-01-11 17:07] VITALS: BP 127/58; PULSE 67; RESP 17; TEMP 36.4; O2SAT 98
[2025-01-11 17:23] LABS: MANUAL DIFF FLAG NO
[2025-01-11 17:25] LABS: Hematocrit 37.8 % (42.0-52.0); Hemoglobin 12.2 g/dl (14.0-18.0); Imm Gran Abs Auto 0.14 X10*3/uL (0.00-0.03); Imm Gran Pct Auto 1.2 % (0.0-0.4); Lymphocytes Absolute Auto 0.9 X10*3/uL (1.2-4.9); Mean Corpuscular HGB Conc 32.3 g/dl (31.0-36.0); Mean Corpuscular Hemoglobin 27.5 pg (27.0-33.0); Mean Corpuscular Volume 85.1 fL (80.0-98.0); NRBC Abs Auto 0.000 X10*3/uL (0.0-0.012); NRBC Pct Auto 0.0 /100WBC (0.0-0.2); Platelet Count 174 X10*3/uL (160-400); Red Blood Count 4.44 X10*6/uL (4.60-5.80); White Blood Count 12.1 X10*3/uL (4.8-10.8)
[2025-01-11 17:32] LABS: INTERNATIONAL NORM RATIO 2.7 (0.9-1.1); Prothrombin Time 30.5 SEC (10.9-12.4)
[2025-01-11 17:34] LABS: Partial Thromboplastin Time 34.0 SEC (26.7-34.1)
--- NOTE | 2025-01-11 17:34 | PC.NURSE ---
pt biba from home c/o atraumatic nonradiating lower back pain radiating x 1 week. denies urinary/bowel incontinence/recent trauma. pt reports hx of previous stroke w/ right sided deficits - wheelchair bound. upon ED arrival - a&ox4. vss and up to date. labs obtained/sent to lab. on RA w/o difficulty - no sob/wob noted. respirations even/unlabored. pending evaluation by provider. plan of care ongoing. call guillory placed within reach.
[2025-01-11 17:38] LABS: Alanine Aminotransferase 7 U/L (0-40); Albumin Level 3.6 g/dL (3.5-5.0); Alkaline Phosphatase 121 U/L (39-117); Anion Gap 11 (12-20); Aspartate Amino Transferase 14 U/L (5-37); Blood Urea Nitrogen 44 mg/dL (9-16); Calcium 8.1 mg/dL (8.4-10.2); Carbon Dioxide 22 mmol/L (22-29); Chloride 114 mmol/L (96-108); Creatinine Clr Calc Pharmacy 42.1; Estimated Glomerular Filt Rate 39; Magnesium 2.0 mg/dL (1.6-2.6); Potassium 5.3 mmol/L (3.3-5.1); Sodium 142 mmol/L (135-145); Total Protein 5.7 g/dL (6.5-8.0)
--- OUTSIDE RECORDS SUMMARY | 2025-01-11 17:40 | XMS_ITS | Encounter Summary ---
Author Organization [facility] Address [address] [place] [address] Encounters * CPT with Medical instED at [employer] on 2024-12-31 { reasonForRequest : itching all over body , patientReports : &qu ot;, denies :[ Ventura Flash, circumferential ventura , Ventura reported with black tissue to the area , Open skin area after a fall with uncontrolled bleeding ,& quot;Abscess/infection with streaking noted, presence of fever or without ], chiefComplaints : Wound Care , pmh : Congestive Heart Failure, Hypertension, Stroke, Epilepsy/Seizure Disorder, Diabetes Mellitus Type 2, Prostate Cancer , allergies :"No Known Drug Allergies , otherAllergies : , painAssessment&quot ;: , visitOutcome : , additionalComments : 79 y.o male complains of Wound Care\n\nPatients SEMIAUTOMATIC TAPER OPERATOR calling in to place a referral\nPatient with pink patchesto his chest and right leg for 2 weeks\nPatches are itchy, no pain\nPatches on leg are open\nDeniesany lip or tongue swelling\nNo difficulty breathing or swallowing\nDenies chest pain\nNo fever/chills\nNo headache or dizziness\nNo fever/chills\nDenies any new detergents, creams, body wash, no new foods or medications, etc\nHe would like to be evaluated\n\nI provided information on the mobile health provider response time and advised the patient and/or caregiver to monitor reported signs and symptoms. I discussed the warning signs of when to seek emergency care. } SC1 sent to the above address for the pt with a rash. Upon arrival the pt was found sitting in his wheelchair with his SEMIAUTOMATIC TAPER OPERATOR. The pts SEMIAUTOMATIC TAPER OPERATOR states that the pt has had this for about 2 weeks and [email or web address] was here yesterday for the same symptoms. The pts SEMIAUTOMATIC TAPER OPERATOR gave him 50 mg of Benadryl at 0930 this am and the area also had cream applied to the red sections of both lower legs and also the chest. The cream was a triple antibiotic ointment, and she was also using Calamine lotion to assist with his itching.The pt denies any shortness of breath or chest pain since this rash has developed. The rash is red and not raised, and covers both lower legs, it is slightly warm and itchy. The SEMIAUTOMATIC TAPER OPERATOR has been applyingthe triple antibiotic cream twice a day and the Calamine lotion as needed. The pt was asked if there had been any change with laundry detergent, body wash or soaps or cologne and the pt stated he hasnot changed anything in that regard. The pt does not have any known allergies known to him. Dr Rogel was contacted and the results of the exam were gone over , the pt again denied any allergies to a nything he knows of. Dr Beavers ordered another Nystatin and also prescribed Prednisone 40mg PO for the pt to assist with his itching, then then a prescription for a Prednisone taper to start tomorrow. The pt was given the Prednisone and the 5 rights were followed while giving this medication. The wa rning signs, chest pain, severe shortness of breath, syncope, altered mental status, fever, rednessand puss leaking from the area to call 911 and go to the ED. The pt and SEMIAUTOMATIC TAPER OPERATOR understood these instructions. SC1 cleared the call. WRR. ORAL_MEDICATION, WOUND_CARE Written by Medical instED on 2024-12-31
--- OUTSIDE RECORDS SUMMARY | 2025-01-11 17:40 | XMS_ITS | Encounter Summary ---
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 reporting a body rash with associating itching, going on 1 week, worse today , patientReports : Rash , denies :[ Ventura Flash, circumferential ventura , Ventura reported with black tissue to the area , Open skin area after a fall with uncontrolled bleeding&qu ot;, Abscess/infection with streaking noted, presence of fever or without , History of cellulitis, isolated redness noted , Fever and chills noted in setting of wound ,"Bites -bugs, spider , Abscess ], chiefComplaints : Rash ,"pmh : Congestive Heart Failure, Hypertension, Stroke, Epilepsy/Seizure Disorder, Diabetes Mellitus Type 2, Prostate Cancer , allergies : No Known Drug Allergies ,& quot;otherAllergies : , painAssessment : , visitOutcome&qu ot;: , additionalComments : 79 y.o male complains of Rash\n\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 FLOOR STEWARD/STEWARDESS reporting symptoms via mapping editor:\nRash for 1 week, worse today \nSmall red patches all over the body - dry, no drainage \n2 weeks ago patient started on nystatin cream for foot per global transportation manager for dry feet - no other new medication changes\nNo detergent/soap changes, diet has stayed the same \nBegan on the foot and then traveled up all over the body \nDenies difficulty breathing, drooling/managing secretions, throat swelling \nDenies fever\nRecent prostate cancer diagnosis - no active treatment at the moment \nRequesting instED visit\n\nI provided information on the mobile health provider response time and advised the patient and/or caregiver to monitor reported signs and symptoms. I discussed the warning signs of when to seek emergency care. } Pt chief complaint today of a rash that began his lower extremities bilaterally, pt notes that all signs and symptoms have been occurring for approximately 1 week prior to [facility]. Pt notes that he has not had any changes in his daily routines, medications and or cleaning products. Pt notes he has beenusing oral Benadryl with no positive effects. Pt notes that rash has been going from his lower extremities and now reaching to his chest, arms and back. Pt today would appreciate a general assessmentas well as treatment if possible. Today of expresses no current chest pain, sob,,NVD, dizziness or changes in vision. Allergies noted. Nonneural focal exam, afebrile, vitals are WNL for the pt. Pt is ambulate at his normal baseline without the assistance of a walking device and or person. Lungs present as clear bilaterally on auscultation. Benign abdominal assessment. No new or worsening lower extremity edema noted. Noted lower extremity veinous stasis. Positive csm. Skin presents are red, warm and dry. Pt has been using nystatin cream on Lower extremities for unrelated condition. [facility] Alaina Trejo consulted. Pt informed of findings. Pt is informed to make an appointment with his entertainment production professional for further testing and treatment as needed. Pt is educated on red flag S&S and told to call emergency services if any present. Written by Medical [facility] on 2024-12-30
--- OUTSIDE RECORDS SUMMARY | 2025-01-11 17:40 | XMS_ITS | Clinical Summary ---
Author Organization [employer] Address [address] [place] [address] [address] [place] [address] Care Team Providers Care Order Booker Name Role Phone Unavailable Primary Care Provider [...]
--- OUTSIDE RECORDS SUMMARY | 2025-01-11 17:41 | XMS_ITS | Continuity of Care Document ---
Author Name instED, Medical Address [address] [place] [address] Organization Unknown Address [address] [place] [id number] Medications No known medications Problems No known problems
--- OUTSIDE RECORDS SUMMARY | 2025-01-11 17:41 | XMS_ITS | Continuity of Care Document ---
Author Name instED, Medical Address [address] [place] [address] Organization Unknown Address [address] [place] [id number] Medications No known medications Problems No known problems
--- OUTSIDE RECORDS SUMMARY | 2025-01-11 17:41 | XMS_ITS | Clinical Summary ---
Author Organization [facility] Address [address] [place] [address] Phone Care Team Providers Care Sales Department Clerk Name Role Phone Poonam Hernandez MD Primary Care Provider [phone] Allergies Active Allergy Reactions Criticality Noted Date [...] age to complete this topic Insurance [facility]ly [facility] [place] [id number] [facility] [place] [id number] Care Teams Sales Department Clerk Relationship Specialty Start Date End Date Poonam Hernandez MD [address] [place], [place] PCP - General Internal Medicine 04/14/21
[2025-01-11 18:18] VITALS: BP 109/57; PULSE 60; RESP 17; TEMP 36.8; O2SAT 99
--- NOTE | 2025-01-11 20:20 | PC.NURSE ---
Assumed care of pt, presents with non-traumatic lower back pain x 1 weeks, pain radiates down the right left leg, aaox4, hx of stroke with right side deficits,
--- NOTE | 2025-01-11 21:14 | ED.GENADULT ---
HPI - General Adult General Chief complaint: Back Pain/Injury Stated complaint: 12/25 low back pain Time Seen by Provider: 01/11/25 20:20 Source: patient Limitations: no limitations History of Present Illness ED Provider: Jane Gamez PA-C HPI narrative: 79-year-old male with a history of diabetes, hypertension, hyperlipidemia, heart failure, AFib on warfarin, chronic kidney disease, prior CVA with right-sided residual deficits who is primarily bed-bound and wheelchair-bound at baseline, seizure disorder on Keppra, chronic back pain, who presents with left-sided lumbar pain x1 week. Patient states the pain radiates into the hip. He denies new activity, fall or other trauma that could have precipitated his symptoms. Denies paresthesia of left lower extremity, no weakness. No urinary retention or bowel incontinence. Related Data Home Medications ?Medication ?Instructions ?Recorded ?Confirmed empagliflozin 10 mg tablet 10 mg PO DAILY 01/12/25 01/13/25 (Jardiance) warfarin 2.5 mg tablet 2.5 mg PO DAILY 01/12/25 01/14/25 Previous Rx's ?Medication ?Instructions ?Recorded power wheelchair #1 ea 02/27/21 blood-glucose meter (OneTouch #1 ea 01/11/23 Ultra2 Meter) lancets 30 gauge (Onetouch Delica #100 ea 01/11/23 Safety Lancet) adult diapers pull-ups #240 ea 09/05/23 gloves #200 ea 09/05/23 incontinent wipes #200 ea 09/05/23 underpads (Bed Underpads) #150 ea 01/30/24 wipes #200 ea 01/30/24 nebulizers (VixOne Nebulizer-Adult #1 ea 01/31/24 Mask) bed side table #1 ea 02/22/24 commode (bedside commode) #1 ea 02/22/24 Legs rests for Dynaride 19 TWC #1 ea 07/08/24 non elevating magnesium oxide 400 mg PO DAILY 90 days #90 caps 08/09/24 finasteride 5 mg tablet 5 mg PO DAILY 90 days #90 tabs 09/11/24 levetiracetam 750 mg tablet 750 mg PO BID 3 months #180 tabs 09/11/24 tamsulosin 0.4 mg capsule 0.4 mg PO DAILY 3 months #90 caps 09/11/24 atorvastatin 40 mg tablet 40 mg PO BEDTIME 90 days #90 tabs 10/04/24 metoprolol succinate 25 mg 12.5 mg (1/2 x 25 mg) PO DAILY #90 10/10/24 tablet,extended release 24 hr tabs famotidine 20 mg tablet 20 mg PO DAILY PRN heartburn 30 11/04/24 days #30 tabs hydrocortisone 5 mg tablet (Cortef) 10 mg (2 x 5 mg) PO DAILY #120 tabs 11/04/24 metformin 500 mg tablet 500 mg PO DAILY 90 days #90 tabs 11/07/24 mirtazapine 15 mg tablet 15 mg PO BEDTIME 3 months #90 tabs 11/07/24 blood sugar diagnostic (OneTouch #100 ea 12/03/24 Ultra Test strips) ferrous sulfate 325 mg (65 mg 325 mg PO DAILY 60 days #60 tabs 12/04/24 iron) tablet fluoxetine 20 mg capsule 20 mg PO DAILY 90 days #90 caps 12/04/24 allopurinol 100 mg tablet 100 mg PO DAILY #90 tabs 01/09/25 Allergies Allergy/AdvReac Type Severity Reaction Status Date / Time No Known Allergies Allergy Verified 01/13/25 17:20 Review of Systems Review of Systems: Yes all other systems are reviewed and are negative Constitutional: Constitutional: Denies fatigue and Denies fever(s) Cardiovascular: Cardiovascular: Denies chest pain and Denies dyspnea Respiratory: Respiratory: Denies dyspnea Gastrointestinal: Gastrointestinal: Denies abdominal pain, Denies nausea and Denies vomiting Musculoskeletal: Musculoskeletal: Reports back pain, Denies muscle weakness, Denies numbness, Reports radiating pain into limb and Denies tingling Neurologic: Denies numbness and Denies tingling Endocrine: Endocrine: Denies fatigue [facility] Past Medical History Attestation statement: The following information was validated with the patient. 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 Housing: Apartment Are you a primary behavioral health care manager to a significant other at home: No Do you presently have visiting nurse or other home services: Yes Alcohol intake: former Comment: Oxycodone PO Patient Tobacco Use Status: Never used Tobacco e-Cigarette/Vaping Use: Never Used Second Hand Smoke Exposure: No Advance Directives Date on File: 01/13/25 service: No Current occupational status: disabled Cognitive needs: Yes (wheelchair) Hearing needs: No Vision needs: No Physical Exam ED Vital Signs: Vital Signs - 24 hr 01/12/25 20:16 01/12/25 23:11 01/13/25 07:06 Temperature 98.5 F 99.0 F 98.8 F Pulse Rate 65 77 87 Respiratory Rate 16 16 14 Blood Pressure 128/82 147/85 H 117/79 Pulse Oximetry 98 98 97 Oxygen Delivery Method Room Air Room Air Room Air 01/13/25 08:29 01/13/25 08:34 Temperature Pulse Rate 78 78 Respiratory Rate Blood Pressure 97/64 97/64 Pulse Oximetry Oxygen Delivery Method BMI result Body Mass Index 34.0 Const Other: Alert Orientation/consciousness: patient oriented x3 Resp Effort & Inspection: normal respiratory effort Cardio Other: Normal peripheral perfusion Back/Spine/Pelvis Other: No palpable midline tenderness, pain elicited with palpation of left paraspinous distribution Skin Other: Warm dry no rash Neuro General: patient oriented x3, no focal motor deficits and CN's II-XI intact bilaterally Extrem Other: Patient able to perform straight leg raise bilaterally, greater than 30 degrees, pain elicited left low back with straight leg raise of left lower extremity Psych Other: Cooperative Course Reevaluation(s) Reevaluation #1: Time: 05:13 Date: 01/12/25 Provider: MARGARITO Arango Patient in physician observation for case management needs. No acute events reported overnight.? No current issues or complaints. VS stable. Patient is pending placement at facility/pending PT/CM eval. Will continue to monitor. Reevaluation #2: Time: 12:45 Date: 01/13/25 Provider: MARGARITO Díaz Patient in physician observation for case management needs. No acute events reported overnight.? No current issues or complaints. VS stable. Patient has been offered a bed for short-term rehab at [facility] in [place]. At this time is medically cleared, does not require inpatient hospital care. He is stable for discharge to [facility]. Physician observation discontinued at this time Medications Administered Discontinued Medications Generic Name Dose Route Start Last Admin Trade Name [place] PRN Reason Stop Dose Admin Allopurinol 100 mg 01/13/25 09:00 01/13/25 08:30 Allopurinol 100 Mg Tablet PO 100 mg DAILY AKIN Administration Atorvastatin Calcium 40 mg 01/12/25 21:00 01/12/25 20:00 Atorvastatin Calcium 40 Mg Tablet PO 40 mg BEDTIME AKIN Administration Empagliflozin 10 mg 01/13/25 09:00 01/13/25 08:30 Empagliflozin 10 Mg Tablet PO 10 mg DAILY AKIN Administration Ferrous Sulfate 324 mg 01/13/25 09:00 01/13/25 08:29 Ferrous Sulfate 324 Mg Tablet.Dr PO 324 mg DAILY AKIN Administration Finasteride 5 mg 01/13/25 09:00 01/13/25 08:33 Finasteride 5 Mg Tablet PO 5 mg DAILY AKIN Administration Fluoxetine HCl 20 mg 01/13/25 09:00 01/13/25 08:31 Fluoxetine Hcl 20 Mg Capsule PO 20 mg DAILY AKIN Administration Hydrocortisone 5 mg 01/13/25 09:00 01/13/25 08:30 Hydrocortisone 10 Mg Tablet PO 5 mg DAILY AKIN Administration Levetiracetam 750 mg 01/12/25 21:00 01/13/25 08:27 Levetiracetam 500 Mg Tablet PO 750 mg BID AKIN Administration Magnesium Oxide 400 mg 01/13/25 09:00 01/13/25 08:30 Magnesium Oxide 400 Mg Tablet PO 400 mg DAILY AKIN Administration Metformin HCl 500 mg 01/13/25 09:00 01/13/25 08:30 Metformin Hcl 500 Mg Tablet PO 500 mg DAILY AKIN Administration Methocarbamol 1,500 mg 01/11/25 21:06 01/11/25 21:30 Methocarbamol 750 Mg Tablet PO 01/11/25 21:07 1,500 mg ONCE ONE Administration Metoprolol Succinate 12.5 mg 01/13/25 09:00 01/13/25 08:29 Metoprolol Succinate Er 12.5 Mg Halftab.Er.24h PO 12.5 mg DAILY AKIN Administration Protocol Mirtazapine 15 mg 01/12/25 21:00 01/12/25 20:00 Mirtazapine 15 Mg Tablet PO 15 mg BEDTIME AKIN Administration Sodium Zirconium Cyclosilicate 10 gm 01/12/25 05:12 01/12/25 06:09 Sodium Zirconium Cyclosilicate 10 Gm Powd.Pack PO 01/12/25 05:13 10 gm ONCE ONE Administration Tamsulosin HCl 0.4 mg 01/13/25 09:00 01/13/25 08:30 Tamsulosin Hcl 0.4 Mg Capsule PO 0.4 mg DAILY AKIN Administration Warfarin Sodium 2.5 mg 01/12/25 18:00 01/12/25 19:09 Warfarin Sodium 2.5 Mg Tablet PO 2.5 mg [email or web address] AKIN Administration Medical Decision Making Medical Decision Making MDM Narrative: 79-year-old male with a history of diabetes, hypertension, hyperlipidemia, heart failure, AFib on warfarin, chronic kidney disease, prior CVA with right-sided residual deficits who is primarily bed-bound and wheelchair-bound at baseline, seizure disorder on Keppra, chronic back pain, who presents with left-sided lumbar pain x1 week. Patient states the pain radiates into the hip. He denies new activity, fall or other trauma that could have precipitated his symptoms. Denies paresthesia of left lower extremity, no weakness. No urinary retention or bowel incontinence. Problem: Age, prior stroke with neuro deficits, diabetes, chronic kidney disease, immobility History: Per patient I have considered the following differential diagnoses: Lumbar strain, lumbar radiculopathy, cauda equina, compression fracture Plan: Screening labs including imaging of the lumbar spine ordered from triage, the patient has underlying degenerative changes. We will treat accordingly. I offered PT and case management to the patient, he is willing to stay for assessment. The hope is for him to receive services to the home in the way of PT. We will give methocarbamol for his pain. The patient is having lumbar pain without radicular symptoms, he also has no red flag signs symptoms concerning for cord compression. I have independently reviewed the following tests: Labs: Slight leukocytosis, stable anemia, potassium subtly bumped at 5.3, creatinine at baseline, no additional electrolyte abnormality, we will give Lokelma Findings: Degenerative straightening of the usual lumbar lordosis. No listhesis. Moderate lower lumbar spine degenerative changes. No acute finding. No evidence of acute fracture. Moderate lower lumbar spine degenerative changes characterized by disc height loss with degenerative endplate change and severe facet hypertrophy. Suspected [id number] bilateral neural foraminal narrowing at L4-L5, L3-L4, and possibly L2-L3. IMPRESSION: No acute findings. Differential Diagnosis Differential Diagnoses: The differential diagnosis associated with the presentation includes See medical decision-making Admission/Observation Consideration of admission/observation: Escalation of care including admission/observation considered Not applicable Consult Healthcare Provider Management of the patient was discussed with: Heel Cementer Lab Data MDM Lab Attestation statement: I reviewed the patient's lab results. 01/11/25 17:21 01/11/25 17:21 Labs: Lab Results 01/11/25 01/12/25 01/12/25 Range/Units 17:21 11:17 23:11 WBC 12.1 H (4.8-10.8) X10*3/uL RBC 4.44 L (4.60-5.80) X10*6/uL Hgb 12.2 L (14.0-18.0) g/dl Hct 37.8 L (42.0-52.0) % MCV 85.1 (80.0-98.0) fL MCH 27.5 (27.0-33.0) pg MCHC 32.3 (31.0-36.0) g/dl RDW 15.4 (11.0-16.0) % Plt Count 174 (160-400) X10*3/uL MPV 11.0 (9.4-12.4) fL Immature Gran % (Auto) 1.2 H (0.0-0.4) % Neut % (Auto) 82.7 H (45-73) % Lymph % (Auto) 7.4 L (20-40) % [place] % (Auto) 6.3 (2-11) % Eos % (Auto) 2.3 (0-4) % Baso % (Auto) 0.1 (0-2) % Lymph # (Auto) 0.9 L (1.2-4.9) X10*3/uL [place] # (Auto) 0.8 (0.1-1.2) X10*3/uL Eos # (Auto) 0.3 (0.0-0.4) X10*3/uL Baso # (Auto) 0.0 (0.0-0.2) X10*3/uL Abs Immat Gran (auto) 0.14 H (0.00-0.03) X10*3/uL Absolute Neuts (auto) 10.0 H (2.0-8.3) x10*3/uL Absolute Nucleated RBC 0.000 (0.0-0.012) X10*3/uL Nucleated RBC % (auto) 0.0 (0.0-0.2) /100WBC PT 30.5 H (10.9-12.4) SEC INR 2.7 H (0.9-1.1) APTT 34.0 (26.7-34.1) SEC Sodium 142 (135-145) mmol/L Potassium 5.3 H (3.3-5.1) mmol/L Chloride 114 H (96-108) mmol/L Carbon Dioxide 22 (22-29) mmol/L Anion Gap 11 L (12-20) BUN 44 H (9-16) mg/dL Creatinine 1.72 H (0.5-1.4) mg/dL Estim Creat Clear Calc 42.1 Estimated GFR 39 POC Glucose 109 (60-115) mg/dL Random Glucose 178 H (60-115) mg/dL Calcium 8.1 L D (8.4-10.2) mg/dL Magnesium 2.0 (1.6-2.6) mg/dL Total Bilirubin 0.4 (0.0-1.0) mg/dL AST 14 (5-37) U/L ALT 7 (0-40) U/L Alkaline Phosphatase 121 H (39-117) U/L Total Protein 5.7 L (6.5-8.0) g/dL Albumin 3.6 (3.5-5.0) g/dL Influenza Type A (PCR) NEGATIVE (Negative) Influenza Type B (PCR) NEGATIVE (Negative) RSV RNA Qual (PCR) NEGATIVE (Negative) SARS-CoV-2 RNA (RT-PCR) NEGATIVE (Negative) 01/13/25 01/13/25 Range/Units 07:13 09:26 WBC (4.8-10.8) X10*3/uL RBC (4.60-5.80) X10*6/uL Hgb (14.0-18.0) g/dl Hct (42.0-52.0) % MCV (80.0-98.0) fL MCH (27.0-33.0) pg MCHC (31.0-36.0) g/dl RDW (11.0-16.0) % Plt Count (160-400) X10*3/uL MPV (9.4-12.4) fL Immature Gran % (Auto) (0.0-0.4) % Neut % (Auto) (45-73) % Lymph % (Auto) (20-40) % [place] % (Auto) (2-11) % Eos % (Auto) (0-4) % Baso % (Auto) (0-2) % Lymph # (Auto) (1.2-4.9) X10*3/uL [place] # (Auto) (0.1-1.2) X10*3/uL Eos # (Auto) (0.0-0.4) X10*3/uL Baso # (Auto) (0.0-0.2) X10*3/uL Abs Immat Gran (auto) (0.00-0.03) X10*3/uL Absolute Neuts (auto) (2.0-8.3) x10*3/uL Absolute Nucleated RBC (0.0-0.012) X10*3/uL Nucleated RBC % (auto) (0.0-0.2) /100WBC PT 24.5 H (10.9-12.4) SEC INR 2.1 H (0.9-1.1) APTT (26.7-34.1) SEC Sodium (135-145) mmol/L Potassium (3.3-5.1) mmol/L Chloride (96-108) mmol/L Carbon Dioxide (22-29) mmol/L Anion Gap (12-20) BUN (9-16) mg/dL Creatinine (0.5-1.4) mg/dL Estim Creat Clear Calc Estimated GFR POC Glucose 156 H (60-115) mg/dL Random Glucose (60-115) mg/dL Calcium (8.4-10.2) mg/dL Magnesium (1.6-2.6) mg/dL Total Bilirubin (0.0-1.0) mg/dL AST (5-37) U/L ALT (0-40) U/L Alkaline Phosphatase (39-117) U/L Total Protein (6.5-8.0) g/dL Albumin (3.5-5.0) g/dL Influenza Type A (PCR) (Negative) Influenza Type B (PCR) (Negative) RSV RNA Qual (PCR) (Negative) SARS-CoV-2 RNA (RT-PCR) (Negative) Radiology Impression Discussion of test interpretation with radiology: I have reviewed the radiologist's reading. Discharge Plan Discharge Clinical Impression: Arthralgia, lumbar spine Patient Disposition: er [facility] Transfer Details: [facility] Instructions: Acute Low Back Pain (ED) Additional Instructions: Recommend Tylenol as needed for pain. Follow-up with your doctor. You may benefit from physical therapy If you develop new or worsening symptoms call 911 or come back to the ER for further evaluation. XR spine was unremarkable CLINICAL HISTORY: pain 3 views lumbar spine Comparison: None provided Findings: Degenerative straightening of the usual lumbar lordosis. No listhesis. Moderate lower lumbar spine degenerative changes. No acute finding. No evidence of acute fracture. Moderate lower lumbar spine degenerative changes characterized by disc height loss with degenerative endplate change and severe facet hypertrophy. Suspected fiovkheu-ar-qjusjs bilateral neural foraminal narrowing at L4-L5, L3-L4, and possibly L2-L3. IMPRESSION: No acute findings. Prescriptions: No Action (DME) power wheelchair See Rx Instructions .Route .MEDSUPPLY Qty: 1 0RF Rx Instructions: As directed (DME) blood-glucose meter [OneTouch Ultra2 Meter] Misc See Rx Instructions .Route Qty: 1 0RF Rx Instructions: test once per day (DME) lancets [Onetouch Delica Safety Lancet] 30 gauge misc See Rx Instructions .Route Qty: 100 4RF Rx Instructions: test once per day (DME) adult diapers pull-ups XL See Rx Instructions .Route .MEDSUPPLY Qty: 240 11RF Rx Instructions: As directed (DME) gloves Medium See Rx Instructions .Route .MEDSUPPLY Qty: 200 0RF Rx Instructions: As directed (DME) incontinent wipes See Rx Instructions .Route .MEDSUPPLY Qty: 200 0RF Rx Instructions: As directed (DME) underpads [Bed Underpads] Pad See Rx Instructions .Route Qty: 150 11RF Rx Instructions: As directed (DME) wipes See Rx Instructions .Route .MEDSUPPLY Qty: 200 11RF Rx Instructions: As directed (DME) nebulizers [VixOne Nebulizer-Adult Mask] Misc See Rx Instructions .Route Qty: 1 0RF Rx Instructions: As directed- tube like (DME) bedside commode Kit See Rx Instructions .Route Qty: 1 0RF Rx Instructions: As directed (DME) bed side table See Rx Instructions .Route .MEDSUPPLY Qty: 1 0RF Rx Instructions: As directed (DME) Legs rests for Dynaride 19 TWC non elevating See Rx Instructions .Route .MEDSUPPLY Qty: 1 0RF Rx Instructions: Use daily prn magnesium oxide 400 mg magnesium capsule 400 mg PO DAILY 90 Days Qty: 90 1RF finasteride 5 mg tablet 5 mg PO DAILY 90 Days Qty: 90 1RF tamsulosin 0.4 mg capsule 0.4 mg PO DAILY 90 Days Qty: 90 1RF levetiracetam 750 mg tablet 750 mg PO BID 90 Days Qty: 180 1RF atorvastatin 40 mg tablet 40 mg PO BEDTIME 90 Days Qty: 90 3RF metoprolol succinate 25 mg tablet extended release 24 hr 12.5 mg PO DAILY Qty: 90 0RF hydrocortisone [Cortef] 5 mg tablet 10 mg PO DAILY Qty: 120 3RF famotidine 20 mg tablet 20 mg PO DAILY PRN (Reason: heartburn) 30 Days Qty: 30 2RF metformin 500 mg tablet 500 mg PO DAILY 90 Days Qty: 90 1RF mirtazapine 15 mg tablet 15 mg PO BEDTIME 90 Days Qty: 90 3RF (DME) OneTouch Ultra Test Strip See Rx Instructions .Route Qty: 100 4RF Rx Instructions: test once per day fluoxetine 20 mg capsule 20 mg PO DAILY 90 Days Qty: 90 1RF ferrous sulfate 325 mg (65 mg iron) tablet 325 mg PO DAILY 60 Days Qty: 60 6RF allopurinol 100 mg tablet 100 mg PO DAILY Qty: 90 3RF warfarin 2.5 mg tablet 2.5 mg PO DAILY Jardiance 10 mg tablet 10 mg PO DAILY Referrals: [facility] [Outside] Poonam Hernandez MD [Primary Care Provider, Internal Medicine] Interventions: ED Discharge Assessment Last Done: 01/13/25 14:13 Discharge Date/Time: 01/13/25 14:13 Print Language: Czech
[2025-01-11 21:52] VITALS: BP 129/82; PULSE 63; RESP 19; TEMP 36.3; O2SAT 100
[2025-01-11 22:34] VITALS: BP 124/79; PULSE 60; RESP 19; TEMP 36.5; O2SAT 99
[2025-01-12 05:08] VITALS: BP 140/82; PULSE 60; RESP 18; TEMP 36.6; O2SAT 100
--- NOTE | 2025-01-12 05:53 | MHC.EDTECH ---
Patient was incont of a moderate amount of urine, farhat-care given, linen changed, vitals taken pt was placed in a hospital bed for comfort, high fall risk precautions placed,bed alarm on and call guillory in reach,daughter at bedside in a recliner for comfort
--- NOTE | 2025-01-12 09:56 | PHA.MEDREC ---
Pharmacy Consult ? Medication Reconciliation Pharmacy has reviewed the medication reconciliation completed by nursing. Spoke with pt to confirm Jardiance and Warfarin.
[2025-01-12 12:07] LABS: Resp Syncy Virus RNA Qual PCR NEGATIVE (Negative); SARS COV2 PCR INHOUSE NEGATIVE (Negative)
--- NOTE | 2025-01-12 13:56 | MHC.CM.ED ---
Received case management consult overnight. Patient came to the ER due to back pain. Work up essentially negative. Physical therapy eval ordered and not available until tomorrow 01/13. Met with patient and operations engineer in regards to discharge planning. Patient lives alone, uses a wheelchair for mobility, is active with [facility] and has [facility] hours. Patient is unsure of [facility] agency name. PCP verified. Copy of HCP verified to be on file. Patient states he has been to rehab over 3 years ago and does not remember where he has been. Patient does not feel he can safely return home at this time d/t back pain. Patient agreeable to referral being broadcasted locally and bed offers being discussed. Patient has been active with [facility] in the past. Referral made in [facility] to verify if patient is still active with them. Continue to monitor for d/c needs.
--- NOTE | 2025-01-12 18:53 | PC.NURSE ---
Pharmacy called and coumadin requested
[2025-01-12 20:16] VITALS: BP 128/82; PULSE 65; RESP 16; TEMP 36.9; O2SAT 98
[2025-01-12 23:11] VITALS: BP 147/85; PULSE 77; RESP 16; TEMP 37.2; O2SAT 98
[2025-01-12 23:18] LABS: Glucose, Whole Blood 109 mg/dL (60-115)
[2025-01-13 07:06] VITALS: BP 117/79; PULSE 87; RESP 14; TEMP 37.1; O2SAT 97
[2025-01-13 07:15] LABS: Glucose, Whole Blood 156 mg/dL (60-115)
--- NOTE | 2025-01-13 07:21 | PC.NURSE ---
Assumed care of patient. Pt continues to have lower back pain, no other complaints. A+Ox4, calm, cooperative. RR even and unlabored, denies CP or SOB.
[2025-01-13 08:29] VITALS: BP 97/64; PULSE 78
[2025-01-13] MEDS: Ferrous Sulfate 324 MG TABLET.DR PO (08:29)
[2025-01-13] MEDS: Metoprolol Succinate ER 12.5 MG HALFTAB.ER.24H PO (08:29)
[2025-01-13 08:34] VITALS: BP 97/64; PULSE 78
--- NOTE | 2025-01-13 09:09 | PC.NURSE ---
Report given to CHRIS Brooks in overflow
[2025-01-13 09:48] LABS: INTERNATIONAL NORM RATIO 2.1 (0.9-1.1); Prothrombin Time 24.5 SEC (10.9-12.4)
--- NOTE | 2025-01-13 10:13 | PC.NURSE ---
Case Management (Alice Ramos) at bedside with staff medical accounting clerk at this time. Plan for rehab placement.
--- NOTE | 2025-01-13 10:31 | MHC.CM.ED ---
Addendum entered by Alice Ramos 01/13/25 12:45: Insurance auth obtained. [facility] booked for 2pm. Med nec with chart. Patient, Nanci RN and Clarissa PIMENTEL aware. Original Note: Patient remains in ER overflow. Physical therapy eval completed. Short term rehab is recommended. Met with patient and carton forming machine helper. Multiple bed offers discussed. Patient accepts bed at [facility]. Facility is aware and is in the process of obtaining ins auth. Continue to monitor for d/c needs
--- NOTE | 2025-01-13 10:38 | PC.NURSE ---
Per Alice Ramos (TANESHA): will discharge to [place] via [facility] when insurance authorization is obtained. Date & time of transfer to be determined, pending authorization.
--- NOTE | 2025-01-13 12:39 | PC.NURSE ---
[facility] ambulance to arrive at 2pm today, per case management. Pt updated regarding plan. Pt to go to [place].
[2025-01-13 14:13] VITALS: BP 97/64; PULSE 78; RESP 16; TEMP 36.8; O2SAT 97
== END 2025-01-13 14:13 | disposition skilled nursing facility (03) ==
PROVIDERS: Physician Assistant; Emergency Provider Emergency Medicine; PCP Internal Medicine
DX: M54.50 Low back pain, unspecified (principal); R26.2 Difficulty in walking, not elsewhere classified; I10 Essential (primary) hypertension; E11.9 Type 2 diabetes mellitus without complications; Z51.81 Encounter for therapeutic drug level monitoring; Z03.818 Encounter for observation for suspected exposure to other biological agents ruled out; Z79.899 Other long term (current) drug therapy
CPT/HCPCS: 36415; 72100; 80053; 82947; 83735; 85025; 85610; 85730; 87637; 97162; 99285

== ENCOUNTER → 2025-01-11 18:59 | Outpatient (BNV) | payer OTHER, SELFPAY | PROVIDERS: PCP Internal Medicine; Visit Provider Radiology Diagnostic Radiology | DX: M51.370 Other intervertebral disc degeneration, lumbosacral region with discogenic back pain only (principal) | CPT/HCPCS: 72100 ==

== ENCOUNTER 2025-01-13 16:53 | Emergency (ER) | payer OTHER, SELFPAY ==
--- NOTE | ~2025-01-13 | CT_ITS ---
CLINICAL HISTORY: severe low back pain hx of prostate cancer CT lumbar spine without contrast Comparison: CR - XR LUMBAR SPINE 2-3V - 01/11/25 18:[address]/REG/SR - CT ABDOMEN PELVIS WO IV CON - 12/08/24 15:[address]/REG/OK/SR - CT ABDOMEN PELVIS WITHOUT IV CONTRAST - 12/08/23 14:02 EDT Findings: Normal vertebral body alignment. Moderate osteopenia. Wedge compression fracture superior endplate of the L4 vertebral body with less than 30% vertebral body height loss with superimposed Schmorl's node. Diffuse idiopathic skeletal hyperostosis L2-3: Grade 1 retrolisthesis of L2 over L3. Broad-based spondylitic disc bulge with mild central canal stenosis and moderate bilateral spondylitic neural foraminal stenosis. L3-4: Grade 1 retrolisthesis of L3 over L4. Broad-based disc bulge with moderate central canal stenosis and moderate bilateral spondylitic foraminal stenosis. L4-5: Broad-based disc bulge with moderate central canal stenosis moderate to severe bilateral spondylitic neural foraminal stenosis with impingement of the exiting L4 nerve roots. L5-S1: Broad-based disc bulge with moderate central canal stenosis and moderate to severe right spondylitic neural foraminal stenosis with impingement of the exiting right L5 nerve root. Mild left spondylitic neural foraminal stenosis. Partly visualized right adrenal mass, 4.5 x 4.3 cm, image 15 of 590 series 4. Mild calcified atherosclerotic disease of the abdominal aorta. IMPRESSION: 1. Chronic wedge compression fracture of L4 superior endplate with less than 30% height loss. 2. Moderate to severe spinal stenosis at multiple levels, most pronounced at L4-5 and L5-S1 with nerve root impingement. 3. Partly visualized 4.5 x 4.3 cm right adrenal mass, stable (adrenal myelolipoma suspected This document has been electronically signed by: Roddy Ceballos MD on 01/13/2025 21:12:16
[2025-01-13 17:02] VITALS: BP 142/90; PULSE 73; O2SAT 100
[2025-01-13 17:10] VITALS: BP 142/97; PULSE 71; RESP 15; TEMP 36.5; O2SAT 97
[2025-01-13 17:18] VITALS: BP 142/97; PULSE 73; RESP 18; TEMP 36.5; O2SAT 97; BMI 28.2
--- NOTE | 2025-01-13 17:22 | PC.NURSE ---
79 M presents to ED after being discharged earlier today, coming from [facility], for concerns of rash follow up, pt previously having scabies. Pt has a rash to R lower extremity but it appears to be healing, no active drainage. A+OX4, calm, cooperativee. Pt has some difficulty ambulating, was a 2 person assist to commode earlier. RR even and unlabored, denies CP or SOB. pt does have chronic back pain 10/24.
--- NOTE | 2025-01-13 18:24 | ED.GENADULT ---
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 Vni hernandez noted he had a roommate though no symptoms or rash now and sent him back for exposure and states they cannot take him. His second treatment is 01/16. He has no complaints he does seem confused why he is here. His only complaint is low back pain. MD complaint: scabies concern Onset (ago): day(s) (01/02) Location: lower extremity Radiation: non-radiation Severity: mild Relieving factors: none Exacerbating factors: none Associated symptoms: denies other symptoms Treatments prior to arrival: none Related Data Home Medications ?Medication ?Instructions ?Recorded ?Confirmed empagliflozin 10 mg tablet 10 mg PO DAILY 01/12/25 01/13/25 (Jardiance) warfarin 2.5 mg tablet 2.5 mg PO DAILY 01/12/25 01/14/25 Previous Rx's ?Medication ?Instructions ?Recorded power wheelchair #1 ea 02/27/21 blood-glucose meter (OneTouch #1 ea 01/11/23 Ultra2 Meter) lancets 30 gauge (Onetouch Delica #100 ea 01/11/23 Safety Lancet) adult diapers pull-ups #240 ea 09/05/23 gloves #200 ea 09/05/23 incontinent wipes #200 ea 09/05/23 underpads (Bed Underpads) #150 ea 01/30/24 wipes #200 ea 01/30/24 nebulizers (VixOne Nebulizer-Adult #1 ea 01/31/24 Mask) bed side table #1 ea 02/22/24 commode (bedside commode) #1 ea 02/22/24 Legs rests for Dynaride 19 TWC #1 ea 07/08/24 non elevating magnesium oxide 400 mg PO DAILY 90 days #90 caps 08/09/24 finasteride 5 mg tablet 5 mg PO DAILY 90 days #90 tabs 09/11/24 levetiracetam 750 mg tablet 750 mg PO BID 3 months #180 tabs 09/11/24 tamsulosin 0.4 mg capsule 0.4 mg PO DAILY 3 months #90 caps 09/11/24 atorvastatin 40 mg tablet 40 mg PO BEDTIME 90 days #90 tabs 10/04/24 metoprolol succinate 25 mg 12.5 mg (1/2 x 25 mg) PO DAILY #90 10/10/24 tablet,extended release 24 hr tabs famotidine 20 mg tablet 20 mg PO DAILY PRN heartburn 30 11/04/24 days #30 tabs hydrocortisone 5 mg tablet (Cortef) 10 mg (2 x 5 mg) PO DAILY #120 tabs 11/04/24 metformin 500 mg tablet 500 mg PO DAILY 90 days #90 tabs 11/07/24 mirtazapine 15 mg tablet 15 mg PO BEDTIME 3 months #90 tabs 11/07/24 blood sugar diagnostic (OneTouch #100 ea 12/03/24 Ultra Test strips) ferrous sulfate 325 mg (65 mg 325 mg PO DAILY 60 days #60 tabs 12/04/24 iron) tablet fluoxetine 20 mg capsule 20 mg PO DAILY 90 days #90 caps 12/04/24 allopurinol 100 mg tablet 100 mg PO DAILY #90 tabs 01/09/25 Allergies Allergy/AdvReac Type Severity Reaction Status Date / Time No Known Allergies Allergy Verified 01/13/25 17:20 Review of Systems Review of Systems: Yes all other systems are reviewed and are negative [facility] Past Medical History Attestation statement: The following information was validated with the patient. 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 Housing: Apartment Are you a primary day care worker to a significant other at home: No Do you presently have visiting nurse or other home services: Yes Alcohol intake: former Comment: Oxycodone PO Patient Tobacco Use Status: Never used Tobacco e-Cigarette/Vaping Use: Never Used Second Hand Smoke Exposure: No Advance Directives Date on File: 01/13/25 service: No Current occupational status: disabled Cognitive needs: Yes (wheelchair) Hearing needs: No Vision needs: No Physical Exam ED Vital Signs: Vital Signs - 24 hr 01/15/25 09:32 01/15/25 12:00 01/15/25 14:00 Temperature 97.4 F 97.1 F Pulse Rate 62 66 60 Respiratory Rate 18 18 Blood Pressure 109/72 109/75 102/67 Pulse Oximetry 99 96 Oxygen Delivery Method Room Air Room Air 01/15/25 21:12 01/16/25 06:00 Temperature 98.6 F 97.1 F Pulse Rate 75 75 Respiratory Rate 16 18 Blood Pressure 150/66 H 110/70 Pulse Oximetry 97 99 Oxygen Delivery Method Room Air Room Air BMI result Body Mass Index 28.2 Appearance: Alert. Oriented X2 seems slightly confused why he is here. No acute distress. Eyes: Pupils equal, round and reactive to light. ENT: Pharynx normal. Neck: Normal inspection. Neck supple. CVS: Normal heart rate and rhythm. Pulses normal. Respiratory: No respiratory distress. Breath sounds normal. Abdomen: Soft and nontender. Skin: Skin warm and dry. Normal skin color. Normal skin turgor. Extremities: No lower extremity edema. venous stasis changes on RLE but no cellulitis Neuro: Oriented X 2. No motor deficit. No sensory deficit. CN2-12 intact Course Course Course Narrative: 9:39 PM 01/13/2025 (Dr. Amanda Banegas, D.O.) assumed care from previous provider pending results of CT and final disposition. Patient continues to rest comfortably without complaints. CT does not show evidence of acute process other than some pinched nerves and an old compression fracture at L4. We will continue to monitor. Patient is awaiting case management evaluation and final disposition. 01/14/25 08Hillary Romero NP: Physician observation continued, no overnight events reported by nursing. Vitals stable. CM to inquire if patient can return to [facility], will follow for disposition if not. 01/14/25 10:20 Patient assessed, no visible rash at this time. Patient does not require any additional treatment for scabies with permethrin. Time: 08:33 Date: 01/15/25 Provider: MARGARITO Garcia Patient in physician observation for case management needs. No acute events reported overnight.? No current issues or complaints. VS stable. [facility] unable to offer bed. Referral broadcasted, awaiting placement at facility. Will continue to monitor. 01/16/2025 0710 Leah Bruno PA-C ----> Observation continues. Case management continues to follow. Time: 08:50 Date: 01/16/25 Provider: MARGARITO Garcia Physician observation ended at 1000. Patient is being discharged to [facility] per . Medications Administered Generic Name Dose Route Start Last Admin Trade Name [place] PRN Reason Stop Dose Admin Allopurinol 100 mg 01/14/25 09:00 01/16/25 08:38 Allopurinol 100 Mg Tablet PO 100 mg DAILY AKIN Administration Atorvastatin Calcium 40 mg 01/14/25 21:00 01/15/25 22:16 Atorvastatin Calcium 40 Mg Tablet PO 40 mg BEDTIME AKIN Administration Empagliflozin 10 mg 01/14/25 09:00 01/15/25 09:33 Empagliflozin 10 Mg Tablet PO 10 mg DAILY AKIN Administration Ferrous Sulfate 324 mg 01/14/25 09:45 01/16/25 08:39 Ferrous Sulfate 324 Mg Tablet. PO 324 mg DAILY AKIN Administration Finasteride 5 mg 01/14/25 09:00 01/16/25 08:39 Finasteride 5 Mg Tablet PO 5 mg DAILY AKIN Administration Fluoxetine HCl 20 mg 01/14/25 09:00 01/16/25 08:38 Fluoxetine Hcl 20 Mg Capsule PO 20 mg DAILY AKIN Administration Hydrocortisone 10 mg 01/14/25 09:45 01/15/25 09:33 Hydrocortisone 10 Mg Tablet PO 10 mg DAILY AKIN Administration Levetiracetam 750 mg 01/14/25 21:00 01/15/25 22:16 Levetiracetam 250 Mg Tablet PO 750 mg BID AKIN Administration Magnesium Oxide 400 mg 01/14/25 09:00 01/16/25 08:39 Magnesium Oxide 400 Mg Tablet PO 400 mg DAILY AKIN Administration Metformin HCl 500 mg 01/14/25 09:00 01/16/25 08:38 Metformin Hcl 500 Mg Tablet PO 500 mg DAILY AKIN Administration Metoprolol Succinate 12.5 mg 01/14/25 09:00 01/16/25 08:38 Metoprolol Succinate Er 12.5 Mg Halftab.Er.24h PO 12.5 mg DAILY AKIN Administration Protocol Mirtazapine 15 mg 01/14/25 21:00 01/15/25 22:16 Mirtazapine 15 Mg Tablet PO 15 mg BEDTIME AKIN Administration Oxycodone HCl 5 mg 01/13/25 19:47 01/14/25 14:48 Oxycodone Hcl Immed Release 5 Mg Tablet PO 5 mg Q6H PRN Administration Pain, Moderate(Pain Scale 4-6) Tamsulosin HCl 0.4 mg 01/14/25 09:00 01/16/25 08:38 Tamsulosin Hcl 0.4 Mg Capsule PO 0.4 mg DAILY AKIN Administration Warfarin Sodium 2.5 mg 01/14/25 18:00 01/15/25 18:17 Warfarin Sodium 2.5 Mg Tablet PO 2.5 mg DAILY@1800 AKIN Administration Discontinued Medications Generic Name Dose Route Start Last Admin Trade Name Freq PRN Reason Stop Dose Admin Levetiracetam 750 mg 01/14/25 09:45 01/14/25 10:52 Levetiracetam 500 Mg Tablet PO 750 mg BID AKIN Administration Medical Decision Making Medical Decision Making MDM Narrative: 79 yo male with PMH of DM, HTN, HLD, lumbar back pain, afib on warfarin, CKD, 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 He has no complaints. He has no itching or new rash. He will be referred to case management Differential Diagnosis Differential Diagnoses: The differential diagnosis associated with the presentation includes possible scabies Admission/Observation Consideration of admission/observation: Escalation of care including admission/observation considered physician observation started at 634pm pending CM I put in lumbar CT scan he has hx of prostate cancer and I want to see if there is a compression fx or mets Consult Healthcare Provider Management of the patient was discussed with: Hair Boiler Operator Lab Data 01/15/25 15:28 Labs: Lab Results 01/14/25 01/14/25 01/14/25 Range/Units 07:16 11:39 12:40 PT 20.3 H (10.9-12.4) SEC INR 1.8 H (0.9-1.1) Creatinine (0.5-1.4) mg/dL Estim Creat Clear Calc Estimated GFR POC Glucose 131 H 172 H (60-115) mg/dL 01/14/25 01/15/25 01/15/25 Range/Units 16:53 05:58 06:05 PT 19.9 H (10.9-12.4) SEC INR 1.7 H (0.9-1.1) Creatinine (0.5-1.4) mg/dL Estim Creat Clear Calc Estimated GFR POC Glucose 132 H 102 (60-115) mg/dL 01/15/25 01/15/25 01/15/25 Range/Units 11:31 15:28 17:41 PT (10.9-12.4) SEC INR (0.9-1.1) Creatinine 1.71 H (0.5-1.4) mg/dL Estim Creat Clear Calc 44.9 Estimated GFR 39 POC Glucose 122 H 110 (60-115) mg/dL Radiology Impression Radiologist Impression: CT lumbar spine without contrast Comparison: CR - XR LUMBAR SPINE 2-3V - 01/11/25 18:[address]/REG/SR - CT ABDOMEN PELVIS WO IV CON - 12/08/24 15:[address]/REG/MA/SR - CT ABDOMEN PELVIS WITHOUT IV CONTRAST - 12/08/23 14:02 EDT Findings: Normal vertebral body alignment. Moderate osteopenia. Wedge compression fracture superior endplate of the L4 vertebral body with less than 30% vertebral body height loss with superimposed Schmorl's node. Diffuse idiopathic skeletal hyperostosis L2-3: Grade 1 retrolisthesis of L2 over L3. Broad-based spondylitic disc bulge with mild central canal stenosis and moderate bilateral spondylitic neural foraminal stenosis. L3-4: Grade 1 retrolisthesis of L3 over L4. Broad-based disc bulge with moderate central canal stenosis and moderate bilateral spondylitic foraminal stenosis. L4-5: Broad-based disc bulge with moderate central canal stenosis moderate to severe bilateral spondylitic neural foraminal stenosis with impingement of the exiting L4 nerve roots. L5-S1: Broad-based disc bulge with moderate central canal stenosis and moderate to severe right spondylitic neural foraminal stenosis with impingement of the exiting right L5 nerve root. Mild left spondylitic neural foraminal stenosis. Partly visualized right adrenal mass, 4.5 x 4.3 cm, image 15 of 590 series 4. Mild calcified atherosclerotic disease of the abdominal aorta. IMPRESSION: 1. Chronic wedge compression fracture of L4 superior endplate with less than 30% height loss. 2. Moderate to severe spinal stenosis at multiple levels, most pronounced at L4-5 and L5-S1 with nerve root impingement. 3. 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 History obtained from or confirmed by: EMS and Other External Record Review External record reviewed: Inpatient record, Outpatient record, Prior outpatient labs and Prior outpatient radiology Discharge Plan Discharge Clinical Impression: Arthralgia, lumbar spine Closed compression fracture of L4 vertebra Qualifiers: Encounter type: initial encounter Qualified Code(s): S32.040A - Wedge compression fracture of fourth lumbar vertebra, initial encounter for closed fracture Patient Disposition: Xfer Inpatient Rehab Fac Transfer Details: [facility] Instructions: Back Pain (ED) Additional Instructions: You are being discharged to [facility]. Return with any new or worsening symptoms. In the case of an emergency call 911. Prescriptions: No Action (DME) power wheelchair See Rx Instructions .Route .MEDSUPPLY Qty: 1 0RF Rx Instructions: As directed (DME) blood-glucose meter [OneTouch Ultra2 Meter] Misc See Rx Instructions .Route Qty: 1 0RF Rx Instructions: test once per day (DME) lancets [Onetouch Delica Safety Lancet] 30 gauge misc See Rx Instructions .Route Qty: 100 4RF Rx Instructions: test once per day (DME) adult diapers pull-ups XL See Rx Instructions .Route .MEDSUPPLY Qty: 240 11RF Rx Instructions: As directed (DME) gloves Medium See Rx Instructions .Route .MEDSUPPLY Qty: 200 0RF Rx Instructions: As directed (DME) incontinent wipes See Rx Instructions .Route .MEDSUPPLY Qty: 200 0RF Rx Instructions: As directed (DME) underpads [Bed Underpads] Pad See Rx Instructions .Route Qty: 150 11RF Rx Instructions: As directed (DME) wipes See Rx Instructions .Route .MEDSUPPLY Qty: 200 11RF Rx Instructions: As directed (DME) nebulizers [VixOne Nebulizer-Adult Mask] Misc See Rx Instructions .Route Qty: 1 0RF Rx Instructions: As directed- tube like (DME) bedside commode Kit See Rx Instructions .Route Qty: 1 0RF Rx Instructions: As directed (DME) bed side table See Rx Instructions .Route .MEDSUPPLY Qty: 1 0RF Rx Instructions: As directed (DME) Legs rests for Dynaride 19 TWC non elevating See Rx Instructions .Route .MEDSUPPLY Qty: 1 0RF Rx Instructions: Use daily prn magnesium oxide 400 mg magnesium capsule 400 mg PO DAILY 90 Days Qty: 90 1RF finasteride 5 mg tablet 5 mg PO DAILY 90 Days Qty: 90 1RF tamsulosin 0.4 mg capsule 0.4 mg PO DAILY 90 Days Qty: 90 1RF levetiracetam 750 mg tablet 750 mg PO BID 90 Days Qty: 180 1RF atorvastatin 40 mg tablet 40 mg PO BEDTIME 90 Days Qty: 90 3RF metoprolol succinate 25 mg tablet extended release 24 hr 12.5 mg PO DAILY Qty: 90 0RF hydrocortisone [Cortef] 5 mg tablet 10 mg PO DAILY Qty: 120 3RF famotidine 20 mg tablet 20 mg PO DAILY PRN (Reason: heartburn) 30 Days Qty: 30 2RF metformin 500 mg tablet 500 mg PO DAILY 90 Days Qty: 90 1RF mirtazapine 15 mg tablet 15 mg PO BEDTIME 90 Days Qty: 90 3RF (DME) OneTouch Ultra Test Strip See Rx Instructions .Route Qty: 100 4RF Rx Instructions: test once per day fluoxetine 20 mg capsule 20 mg PO DAILY 90 Days Qty: 90 1RF ferrous sulfate 325 mg (65 mg iron) tablet 325 mg PO DAILY 60 Days Qty: 60 6RF allopurinol 100 mg tablet 100 mg PO DAILY Qty: 90 3RF warfarin 2.5 mg tablet 2.5 mg PO DAILY Jardiance 10 mg tablet 10 mg PO DAILY Referrals: Glenda Padron [place] [Outside] Poonam Hernandez MD [Primary Care Provider, Internal Medicine] Print Language: [place]
--- OUTSIDE RECORDS SUMMARY | 2025-01-13 18:54 | XMS_ITS | Clinical Summary ---
Author Organization [facility] Address [address] [place] [address] Phone Care Team Providers Care Yeast Pusher Name Role Phone Poonam Hernandez MD Primary Care Provider [phone] Allergies Active Allergy Reactions Criticality Noted Date [...] patient's age to complete this topic Insurance [facility] MARGARITO VALDIVIA [id number] [facility] MARGARITO VALDIVIA [id number] Care Teams Yeast Pusher Relationship Specialty Start Date End Date Poonam Hernandez MD [address] [place], [place] PCP - General Internal Medicine 04/14/21
--- OUTSIDE RECORDS SUMMARY | 2025-01-13 18:54 | XMS_ITS | Clinical Summary ---
Author Organization [employer] Address [address] [place] [address] [address] [place] [address] Care Team Providers Care Wind Farm Designer Name Role Phone Unavailable Primary Care Provider [...]
--- NOTE | 2025-01-13 19:22 | PC.NURSE ---
Addendum entered by Rachael Hernandez RN 01/13/25 19:23: provider at bedside, will order more scans after reviewing chart. Original Note: assumed care of pt, son at bedside, Wes pt advocate and broadcast maintenance technician at bedside. Plan is to try and get pt placed.
[2025-01-13 19:34] VITALS: BP 119/77; PULSE 80; RESP 18; TEMP 36.3; O2SAT 96
--- NOTE | 2025-01-13 21:25 | PC.NURSE ---
verbal report given to Nanci for pt. Room 4 available in 20 minutes.
[2025-01-13 22:00] VITALS: BP 98/68; PULSE 63; RESP 18; TEMP 36.6; O2SAT 98
--- NOTE | 2025-01-13 23:27 | MHC.CM.ED ---
Pt returned from facility for question of scabies prior treatment at [facility] on 01/02. Per provider, no active rash has been seen. Pt was treated prophylactically on 01/02 with order to treat again on 01/16 if any active rash. Pt went to [place] today for STR. Pt has degenerative disc disease. Unsure if patient can return. Pt has previous CVA and has aphasia. He is wheelchair bound. 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 He eats a regular diet and drinks regular fluids. No swallowing concerns. Pt is Sami speaking. mission analyst used. Son, Aaron is able to interpret his difficult speech. New HCP was made with Aaron Dayna ([phone]) patients' son. Will reach out to [place] to see if patient can return. If not, additional referrals will be made.
[2025-01-14 03:37] VITALS: BP 122/90; PULSE 82; RESP 18; TEMP 36.1; O2SAT 97
[2025-01-14 07:23] LABS: Glucose, Whole Blood 131 mg/dL (60-115)
--- NOTE | 2025-01-14 08:39 | MHC.CM.ED ---
Patient remains in ER overflow. [facility] is unable to offer a bed. Referral broadcasted within 15 miles of patient's home to all facilities contracted with patient's insurance. Bed offers will be discussed with patient. Continue to monitor for d/c needs.
--- NOTE | 2025-01-14 09:45 | PHA.MEDREC ---
Pharmacy Consult ? Medication Reconciliation Pharmacy has reviewed the medication reconciliation done by nursing. Pt was just discharged on 01/13/25. Called and spoke to patient's MANAGER BANQUET Adry [phone] in regards to his warfarin dosing. Adry said that a nurse from [facility] comes to the house every monday to check his INR to determine the upcoming dose. She said his dose for today 01/14/25 should be 2.5 mg. Per note from [facility] on 01/09/25 (nurse Leonela Gonsalez), dose is 2.5 mg daily until recheck on 01/15/25.
[2025-01-14 10:49] VITALS: BP 122/90; PULSE 82
[2025-01-14] MEDS: Metoprolol Succinate ER 12.5 MG HALFTAB.ER.24H PO (10:49)
[2025-01-14] MEDS: Ferrous Sulfate 324 MG TABLET.DR PO (10:50)
[2025-01-14 11:42] LABS: Glucose, Whole Blood 172 mg/dL (60-115)
[2025-01-14 13:05] LABS: INTERNATIONAL NORM RATIO 1.8 (0.9-1.1); Prothrombin Time 20.3 SEC (10.9-12.4)
--- NOTE | 2025-01-14 13:25 | PC.NURSE ---
Pt has been sleeping on and off throughout the morning. NO sign of a rash on skin. Pt denies itchiness and pain. No complaints. Awaits disposition. Eating well. Able to state needs. Oriented to person/place.
[2025-01-14] MEDS: oxyCODONE HCl Immed Release 5 MG TABLET PO (14:48)
--- NOTE | 2025-01-14 14:49 | PC.NURSE ---
medicated for left flank pain. worse with movement.
[2025-01-14 15:02] VITALS: BP 95/69; PULSE 71; RESP 18; TEMP 37.1; O2SAT 97
[2025-01-14 16:58] LABS: Glucose, Whole Blood 132 mg/dL (60-115)
[2025-01-14 20:00] VITALS: BP 97/62; PULSE 66; RESP 18; TEMP 36.2; O2SAT 98
[2025-01-15 06:00] VITALS: BP 96/67; PULSE 65; TEMP 36.9; O2SAT 96
[2025-01-15 06:18] LABS: Glucose, Whole Blood 102 mg/dL (60-115)
[2025-01-15 06:23] LABS: INTERNATIONAL NORM RATIO 1.7 (0.9-1.1); Prothrombin Time 19.9 SEC (10.9-12.4)
[2025-01-15 07:33] VITALS: BP 111/79; PULSE 65; RESP 18; TEMP 36.7; O2SAT 97
[2025-01-15 09:32] VITALS: BP 109/72; PULSE 62
[2025-01-15] MEDS: Metoprolol Succinate ER 12.5 MG HALFTAB.ER.24H PO (09:32)
[2025-01-15] MEDS: Ferrous Sulfate 324 MG TABLET.DR PO (09:33)
[2025-01-15 11:34] LABS: Glucose, Whole Blood 122 mg/dL (60-115)
--- NOTE | 2025-01-15 11:46 | PC.NURSE ---
Assumed care of pt approx 0700, alert/oriented- resting comfortably in bed with no apparent s/s of distress. No signs of skin irritation/rashes. Denies pain at this time, male purewick in place-voiding moderate amounts of CYU. Tolerating diet and PO fluids, good intake. Took meds whole with water. Awaiting disposition..
[2025-01-15 12:00] VITALS: BP 109/75; PULSE 66; RESP 18; TEMP 36.3; O2SAT 99
--- NOTE | 2025-01-15 13:19 | MHC.CM.ED ---
Patient remains in ER overflow. [facility] and [facility] are able to offer a bed. Patient accepts bed at [facility]. [facility] is in the process of obtaining ins auth. Continue to monitor for d/c needs.
[2025-01-15 14:00] VITALS: BP 102/67; PULSE 60; RESP 18; TEMP 36.2; O2SAT 96
[2025-01-15 15:48] LABS: Creatinine Clr Calc Pharmacy 44.9; Estimated Glomerular Filt Rate 39
[2025-01-15 17:45] LABS: Glucose, Whole Blood 110 mg/dL (60-115)
--- NOTE | 2025-01-15 20:23 | PC.NURSE ---
patient sleeping, skin pwd, resp even and non labored. appears comfortable at this time
[2025-01-15 21:12] VITALS: BP 150/66; PULSE 75; RESP 16; TEMP 37; O2SAT 97
[2025-01-16 06:00] VITALS: BP 110/70; PULSE 75; RESP 18; TEMP 36.2; O2SAT 99
--- NOTE | 2025-01-16 07:07 | PC.NURSE ---
Assumed care of patient at 2300. Patient resting comfortably in bed. Pt utilizing male purewick, assisted with incontinence care without issue.. No complaints of pain. Bed in lowest setting, call guillory at bedside. Alarm on.
--- NOTE | 2025-01-16 07:09 | PC.NURSE ---
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 Vin hernandez noted he had a roommate though no symptoms or rash now and sent him back for exposure and states they cannot take him. Patients only c/o is back pain. Alert and oriented, primarily british speaking. Respirations even and non-labored. Abdomen soft, distended, non-tender with positive bowel sounds. Positive pedal pulses with no edema. Pending transfer to [facility]. Original Note: Medical History Renal insufficiency CKD (chronic kidney disease) Physical exam Iron deficiency anemia Psoriasis Stroke Seizures Dyslipidemia BPH (benign prostatic hyperplasia) Hypovitaminosis D Gout Abnormal laboratory test Hypertension Diabetes
--- NOTE | 2025-01-16 08:34 | MHC.CM.ED ---
Addendum entered by Alice Ramos 01/16/25 08:53: Patient's son, Aaron, made aware via telephone at [phone]. Original Note: Patient remains in ER overflow. [facility] has obtained insurance auth. Patient can leave at 10am. Edwige ELKINS booked. [facility] with chart. Patient, Edna PEREZ and Brionna PIMENTEL aware. Continue to monitor for d/c needs.
[2025-01-16] MEDS: Metoprolol Succinate ER 12.5 MG HALFTAB.ER.24H PO (08:38)
[2025-01-16] MEDS: Ferrous Sulfate 324 MG TABLET.DR PO (08:39)
--- NOTE | 2025-01-16 09:51 | PC.NURSE ---
Report given to Tia RN at [facility]
[2025-01-16 10:28] VITALS: BP 110/70; PULSE 75; RESP 18; TEMP 36.2; O2SAT 99
== END 2025-01-16 10:30 ==
PROVIDERS: Registered Nurse Emergency; Emergency Provider Emergency Medicine; PCP Internal Medicine
DX: S32.040A Wedge compression fracture of fourth lumbar vertebra, initial encounter for closed fracture (principal); M54.50 Low back pain, unspecified; I10 Essential (primary) hypertension; N18.9 Chronic kidney disease, unspecified; E11.9 Type 2 diabetes mellitus without complications; I48.91 Unspecified atrial fibrillation; I69.398 Other sequelae of cerebral infarction; Z79.899 Other long term (current) drug therapy; Z99.3 Dependence on wheelchair; Z79.01 Long term (current) use of anticoagulants
CPT/HCPCS: 36415; 72131; 82565; 82947; 85610; 99285

== ENCOUNTER → 2025-01-13 19:46 | Outpatient (BNV) | payer OTHER, SELFPAY | PROVIDERS: Emergency Provider Emergency Medicine; PCP Internal Medicine; Visit Provider Radiology Diagnostic Radiology | DX: M48.062 Spinal stenosis, lumbar region with neurogenic claudication (principal) | CPT/HCPCS: 72131 ==

== ENCOUNTER → 2025-02-04 09:31 | Outpatient (REF) | payer OTHER, SELFPAY ==
--- NOTE | ~2025-02-04 | NM_ITS ---
EXAMINATION: NM BONE SCAN WHOLE BODY HISTORY: C61 - Malignant neoplasm of prostate. TECHNIQUE: A total body bone scan was performed following the intravenous administration of 35 mCi technetium 99m-MDP. COMPARISON: Correlation is made with a CT of the abdomen and pelvis dated 12/08/2024. FINDINGS: There is a bandlike focus of increased activity at the L4 vertebral level corresponding to a mild compression deformity on CT. Scattered additional uptake in the thoracolumbar spine is most compatible with degenerative disc disease. A focus of increased activity in the region of the greater trochanter of the left femur appears to correspond to a ligamentous calcification in this region on CT. Additional activity at the left superior acetabulum and in the region of the lesser trochanter of the right femur appears to correspond to degenerative changes. There is degenerative uptake at the right knee and involving both shoulders. A photopenic defect is seen at the left knee consistent with a joint arthroplasty. There is symmetric increased uptake at the sternoclavicular joints, also likely degenerative in nature. No abnormal skull or rib activity is seen. There is normal bilateral renal uptake. NM/NM bone scan whole body IMPRESSION: No scintigraphic evidence of osseous metastatic disease. Electronically signed by: Lalito Conklin MD 02/04/2025 02:29 PM EDT
--- OUTSIDE RECORDS SUMMARY | 2025-02-04 10:42 | XMS_ITS | Clinical Summary ---
Author Organization [facility] Address [address] [place] [address] Phone Care Team Providers Care Trust Clerk Name Role Phone Poonam Hernandez MD Primary Care Provider [phone] Allergies Active Allergy Reactions Criticality Noted Date [...] patient's age to complete this topic Insurance [facility] [place] [id number] [facility] [place] [id number] Care Teams Trust Clerk Relationship Specialty Start Date End Date Poonam Hernandez MD [address] [place], [place] PCP - General Internal Medicine 04/14/21
--- OUTSIDE RECORDS SUMMARY | 2025-02-04 10:42 | XMS_ITS | Clinical Summary ---
Author Organization [employer] Address [address] [place] [address] [address] [place] [address] Care Team Providers Care Electroslag Welding Machine Operator Name Role Phone Unavailable Primary Care [...]
[2025-02-04 12:33] LABS: PSA,Total (Free>4and<10) 3.94 ng/mL (0.00-4.00)
== END ==
LOC: HO.NUCMED 09:31
PROVIDERS: PCP Internal Medicine; Visit Provider Urology
DX: C61 Malignant neoplasm of prostate (principal); C79.51 Secondary malignant neoplasm of bone; C77.5 Secondary and unspecified malignant neoplasm of intrapelvic lymph nodes; Z12.5 Encounter for screening for malignant neoplasm of prostate; Z19.1 Hormone sensitive malignancy status
CPT/HCPCS: 36415; 78306; 84153; 84403; A9503

== ENCOUNTER → 2025-02-04 09:36 | Outpatient (BNV) | payer OTHER, SELFPAY | PROVIDERS: PCP Internal Medicine; Visit Provider Radiology Diagnostic Radiology | DX: C61 Malignant neoplasm of prostate (principal) | CPT/HCPCS: 78306 ==

== ENCOUNTER 2025-02-12 13:33 | Outpatient (AMB) | payer OTHER, SELFPAY ==
--- NOTE | 2025-02-12 13:36 | MHC.OFFVIS ---
Intake Visit Reasons: follow up/nuclear scan/labs Intake Note: Patient is present for follow up Imaging/Labs Urology Med: Allopurinol, Finasteride, Tamsulosin Antibiotic Allergy: None Blood Thinner: Warfarin Claims Service Representative Required: Yes Claims Service Representative Language: Italian Accompanied by: Spouse Allergies No Known Allergies Allergy (Verified 02/12/25 13:49) HPI Comments Details: Yousif is a Italian-speaking male. He is a patient of Dr. Kent. He is seen for the following urologic conditions - elevated PSA - lower urinary tract symptoms - hematuria Italian translation provided by qualified medical practice administrator Bone scan negative 02/08 - bone scan negative, PSA 3.9, T7 08/09 [facility] - CT prior 03/10 - with israel disease but no bony disease Stroke 2011 with seizures and diabetes Plan 2 week [facility] 7 month follow-up lab work, CT abdomen, repeat [facility] Prostate cancer - grade group 5, high volume 12 cores - locally advanced Initial PSA 19.4 08/09 Binu score: 10 (5+5) (transurethral resection) 9 (5+4) (left base lateral and medial, left mid lateral and medial, left apex lateral and medial, and right mid medial), 9 (4+5) (right base lateral and medial, and right apex medial), 8 (4+4) (right mid lateral) Grade group: 5 and 4 Tumor quantitation: Number cores positive: 14 (excluding part M) Total number of cores: 15 % of tissue involved: 60% (including part M) Periprostatic fat inv.: Present Seminal vesicle inv.: Not identified Perineural inv.: Present Lymphatic and/or vascular invasion: Not identified Staging 02/08 - Bone Scan Elevated PSA PSA 19.4 Lower urinary tract symptoms GreenLight laser 08/09 Progressive Prior history of retention with Gamez catheter PVR was 400 cc in emergency room Recent CT showing significantly enlarged prostate with bladder protuberant Current medications include finasteride and tamsulosin Background anticoagulation with diabetes - on Jardiance which is disrupting urination [facility] Medical History Renal insufficiency CKD (chronic kidney disease) Physical exam Iron deficiency anemia Psoriasis Stroke Seizures Dyslipidemia BPH (benign prostatic hyperplasia) Hypovitaminosis D Gout Abnormal laboratory test Hypertension Diabetes Surgical History History of open reduction and internal fixation (ORIF) procedure History of kidney stones Family History Mother Heart problem Father Bone cancer Social History Household Members: None 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 Housing: Apartment Are you a primary career development facilitator to a significant other at home: No Do you presently have visiting nurse or other home services: Yes Alcohol intake: former Comment: Oxycodone PO Patient Tobacco Use Status: Never used Tobacco e-Cigarette/Vaping Use: Never Used Second Hand Smoke Exposure: No Advance Directives Date on File: 01/13/25 service: No Current occupational status: disabled Cognitive needs: Yes (wheelchair) Hearing needs: No Vision needs: No Review of Systems Const Denies chills and Denies fever(s) Card Reports no additional complaints and Denies syncope Resp Denies cough GI Denies abdominal pain and Denies heartburn Reports as per HPI and Denies change in libido Neuro Denies syncope Psych Denies change in libido Endo Denies change in libido Physical Exam Const General: cooperative, healthy appearing, comfortable and no acute distress Orientation/consciousness: patient oriented x3 HEENT Face and sinus: Yes normal facial exam Mouth: moist mucous membranes Neck Neck: Yes normal visual inspection, Yes full ROM and Yes trachea midline Chest Chest palpation & inspection: normal inspection of the chest Resp Effort & Inspection: normal respiratory effort, able to speak in complete sentences and no respiratory distress GI Inspection: Yes normal to inspection Back/Spine/Pelvis Cervical Spine: normal cervical lordosis Thoracic/Lumbar Spine: thoracic and lumbar spine normal to inspection Skin General skin exam: no rashes or lesions noted Neuro General: patient oriented x3, gait normal, tone normal and moves all extremities Extrem General: Yes normal to inspection and Yes capillary refill normal Assessment & Plan Assessment & Plan (1) Prostate cancer metastatic to intrapelvic lymph node: Code(s): C61 - Malignant neoplasm of prostate; C77.5 - Secondary and unspecified malignant neoplasm of intrapelvic lymph nodes Category: Medical (2) Hormone sensitive prostate cancer: Code(s): C61 - Malignant neoplasm of prostate; Z19.1 - Hormone sensitive malignancy status Category: Medical Plan To be [facility] Six-month follow-up lab work repeat [facility] Orders: Orders CT abdomen pelvis wo/w IV con 6 Months C61 - Malignant neoplasm of prostate, C77.5 - Secondary and unspecified malignant neoplasm of intrapelvic lymph nodes Testosterone, Total 6 Months C61 - Malignant neoplasm of prostate, C77.5 - Secondary and unspecified malignant neoplasm of intrapelvic lymph nodes Prostate Specific Antigen 6 Months C61 - Malignant neoplasm of prostate, C77.5 - Secondary and unspecified malignant neoplasm of intrapelvic lymph nodes Patient Instructions: This note is constructed using voice recognition software. While every effort has been made to ensure accuracy small wind energy installer errors may have been included. Imaging studies, laboratory and physical exam results were discussed and reviewed in detail. No major barriers to patient understanding were identified. An opportunity to ask questions regarding the treatment plan was provided. All questions were answered. The patient expressed understanding and agreement with the above treatment plan. The patient is aware they should contact our office by phone for worsening of their current condition or the appearance of new urologic symptoms. Compliance is encouraged with any medications and followup testing that is ordered. It is a privilege to participate in the urologic care of your patient. If you have any questions or concerns regarding treatment for the above conditions, or other urologic issues, please do not hesitate to contact me. The office telephone contact is [phone]. Sincerely, Dr Ciro Mariee MD, [facility] - Urology Compassionate Specialist Care for the Genitourinary System Coding Level of Care Code Est Pt Level 3 (97316) Complex EM visit Add On G2211 Diagnoses Prostate cancer metastatic to intrapelvic lymph node C61; C77.5 Hormone sensitive prostate cancer C61; Z19.1
--- OUTSIDE RECORDS SUMMARY | 2025-02-12 17:23 | XMS_ITS | Clinical Summary ---
Author Organization [employer] Address [address] [place] [address] [address] [place] [address] Care Team Providers Care Undercover Agent Name Role Phone Unavailable Primary Care Provider [...]
--- OUTSIDE RECORDS SUMMARY | 2025-02-12 17:23 | XMS_ITS | Clinical Summary ---
Author Organization [facility] Address [address] [place] [address] Phone Care Team Providers Care Screen Machine Operator Name Role Phone Poonam Hernandez MD Primary Care Provider [phone] Allergies Active Allergy Reactions Criticality Noted Date [...] patient's age to complete this topic Insurance [facility] [place] [id number] [facility] [place] [phone] Care Teams Screen Machine Operator Relationship Specialty Start Date End Date Poonam Hernandez MD [address] [place], [place] PCP - General Internal Medicine 04/14/21
== END 2025-02-12 14:22 | disposition home or self-care (01) ==
LOC: HO.HUSH 13:34
PROVIDERS: Visit Provider Urology
DX: C61 Malignant neoplasm of prostate (principal); C77.5 Secondary and unspecified malignant neoplasm of intrapelvic lymph nodes; Z19.1 Hormone sensitive malignancy status
CPT/HCPCS: 99213; G2211

== ENCOUNTER → 2025-02-12 13:33 | Outpatient (BNVA) | payer OTHER, SELFPAY | PROVIDERS: Visit Provider Urology | DX: C61 Malignant neoplasm of prostate (principal); C77.5 Secondary and unspecified malignant neoplasm of intrapelvic lymph nodes; Z19.1 Hormone sensitive malignancy status | CPT/HCPCS: 99212 ==

== ENCOUNTER 2025-02-19 13:33 | Emergency (ER) | payer OTHER, SELFPAY ==
--- NOTE | 2025-02-19 13:46 | PC.RT ---
Pt came in via EMS active cardiac arrest. Pt had IGEL airway established, was bag valve ventilated by EMS, with MJ providing compressions. RT took over bag ventilations when pt was moved to hospital stretcher. ACLS level care was provided by MD, RNs, and RTs. Resuscitation efforts ceased, TOD called. IGEL remains in place at this time.
--- NOTE | 2025-02-19 13:47 | ED_ITS ---
HPI - General Adult General Chief complaint: Cardiac Arrest/CPR Stated complaint: CARDIAC ARREST,PEA Time Seen by Provider: 02/19/25 13:43 Source: patient Mode of arrival: ambulatory Limitations: no limitations History of Present Illness ED Provider: Dr. Milton HPI narrative: This is a 80-year-old gentleman history of AFib on Coumadin, CVA, diabetes, CHF, CKD presented hospital today for cardiac arrest. Patient's was found down of unknown time. CPR was initiated by title lawyer on scene. EMS arrived at 12:57. First dose of epinephrine was given at 13:02. IO was placed in the left lower extremities. Patient was placed on an I gel for respiratory support. Patient has received approximately 3 rounds of epinephrine in the field prior to arrival here to the ER Unable to obtain further history from patient due to his current status Related Data Home Medications ?Medication ?Instructions ?Recorded ?Confirmed empagliflozin 10 mg tablet 10 mg PO DAILY 01/12/2508/09 (Jardiance) warfarin 2.5 mg tablet 2.5 mg PO DAILY 01/12/2508/09 Previous Rx's ?Medication ?Instructions ?Recorded power wheelchair #1 ea 02/27/21 blood-glucose meter (OneTouch #1 ea 01/11/23 Ultra2 Meter) lancets 30 gauge (Onetouch Delica #100 ea 01/11/23 Safety Lancet) adult diapers pull-ups #240 ea 09/05/23 gloves #200 ea 09/05/23 incontinent wipes #200 ea 09/05/23 underpads (Bed Underpads) #150 ea 01/30/24 wipes #200 ea 01/30/24 nebulizers (VixOne Nebulizer-Adult #1 ea 01/31/24 Mask) bed side table #1 ea 02/22/24 commode (bedside commode) #1 ea 02/22/24 Legs rests for Dynaride 19 TWC #1 ea 07/08/24 non elevating finasteride 5 mg tablet 5 mg PO DAILY 90 days #90 ta bs 09/11/24 levetiracetam 750 mg tablet 750 mg PO BID 3 months #18 0 tabs 09/11/24 tamsulosin 0.4 mg capsule 0.4 mg PO DAILY 3 months #90 caps 09/11/24 atorvastatin 40 mg tablet 40 mg PO BEDTIME 90 days #90 tabs 10/04/24 metoprolol succinate 25 mg 12.5 mg (1/2 x 25 mg) PO DA MARY GRACE #90 10/10/24 tablet,extended release 24 hr tabs hydrocortisone 5 mg tablet (Cortef) 10 mg (2 x 5 mg) P O DAILY #120 tabs 11/04/24 metformin 500 mg tablet 500 mg PO DAILY 90 days #90 tabs 11/07/24 mirtazapine 15 mg tablet 15 mg PO BEDTIME 3 months #9 0 tabs 11/07/24 blood sugar diagnostic (OneTouch #100 ea 12/03/24 Ultra Test strips) ferrous sulfate 325 mg (65 mg 325 mg PO DAILY 60 days #60 tabs 12/04/24 iron) tablet fluoxetine 20 mg capsule 20 mg PO DAILY 90 days #90 c aps 12/04/24 allopurinol 100 mg tablet 100 mg PO DAILY #90 tabs magnesium oxide 400 mg PO DAILY 90 days #90 caps 01/31/25 famotidine 20 mg tablet 20 mg PO DAILY PRN heartburn 30 02/02/25 days #30 tabs enoxaparin 40 mg/0.4 mL 40 mg subcut DAILY 5 days #2 mL 02/18/25 subcutaneous syringe (Lovenox) hydrocortisone 1 % topical cream 1 appl topical BID IN N skin 02/18/25 (Anti-Itch (hydrocortisone)) irritation 2 weeks #28.4 grams Allergies Allergy/AdvReac Type Severity Reaction Status Date / Time No Known Allergies Allergy Verified 02/18/25 14:33 Review of Systems Review of Systems: Pertinent review of systems as mentioned in HPI. All other system otherwise negative. [facility] Past Medical History [facility] Narrative: Medical history as mentioned in HPI Medical History Renal insufficiency CKD (chronic kidney disease) Physical exam Iron deficiency anemia Psoriasis Stroke Seizures Dyslipidemia BPH (benign prostatic hyperplasia) Hypovitaminosis D Gout Abnormal laboratory test Hypertension Diabetes Surgical History History of open reduction and internal fixation (ORIF) procedure History of kidney stones Family History Family History Mother Heart problem Father Bone cancer Social History Social History Household Members: None 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 Housing: Apartment Are you a primary palliative care nurse to a significant other at home: No Do you presently have visiting nurse or other home services: Yes Alcohol intake: former Comment: Oxycodone PO Patient Tobacco Use Status: Never used Tobacco e-Cigarette/Vaping Use: Never Used Second Hand Smoke Exposure: No Advance Directives: Yes Advance Directives on File: Yes Advance Directives Date on File: 01/13/25 service: No Current occupational status: disabled Cognitive needs: Yes (wheelchair) Hearing needs: No Vision needs: No Physical Exam ED Exam Exam: General: Unresponsive in cardiac arrest Head: Normacephalic, atraumatic ENT: neck supple, no tracheal deviation,I gel in place Cardiovascular: No rhythm Respiratory: Ventilated with I gel Gastrointestinal:Soft slightly distended Extremities: No fistula Medical Decision Making Medical Decision Making MDM Narrative: This is a 80-year-old male multiple medical history presented hospital today in cardiac arrest. We did give a dose of 3 rounds of epinephrine with the patient arrived. I amp of bicarb was given Unfortunately no response. Patient remains in pea. Patient is anticoagulated. I have low suspicion for pulmonary embolism. Bedside ultrasound was performed. I confirmed cardiac stent still on u ltrasound. There was pooling of blood in the heart. EMS had already performed a ALS for extensive amount of time prior to arrival here. With a sign of cardiac stands to an ultrasound. I pronounced the patient at 13:41 manager call was made out to the medical instrument technician. Awaiting family arrival at this time. I have met with the patient's son and [id number]. We are at bedside. They defer the autopsy at this time. I brought them back to her room to have a moment with the patient. Differential Diagnosis Differential Diagnoses: The differential diagnosis associated with the presentation includes Cardiac arrest Chronic Conditions CAD, CKD, Afib, CVA Critical Care Time Critical Care Time Critical Care Time: Yes Total Critical Care Time: 38 Attestation: Time is exclusive of separately billable procedures. Time includes: direct patient care, patient reassessment, coordination of patient care, interpretation of data (laboratory data, pulse oximetry, arterial blood gases and chest xrays), review of patient's medical records, medical consultation and documentation of patient care. Procedures excluded from critical care time: central intravenous line placement and electrocardiography. Discharge Plan Discharge Clinical Impression: , Cardiac arrest Patient Disposition:
--- NOTE | 2025-02-19 14:39 | PC.NURSE ---
[employer] called and spoke with Janneth,
--- NOTE | 2025-02-19 14:49 | MHC.EDTECH ---
FAMILY HERE @ THIS TIME SPEAKING WITH DR NEVAREZ @ THIS TIME IN FAMILY ROOM
[2025-02-19 17:32] LABS: Glucose, Whole Blood 153 mg/dL (60-115)
== END 2025-02-19 18:40 | disposition expired ==
PROVIDERS: Emergency Provider Student in an Organized Health Care Education/Training Program; PCP Internal Medicine
DX: I46.9 Cardiac arrest, cause unspecified (principal); I48.91 Unspecified atrial fibrillation; I13.0 Hypertensive heart and chronic kidney disease with heart failure and stage 1 through stage 4 chronic kidney disease, or unspecified chronic kidney disease; E11.22 Type 2 diabetes mellitus with diabetic chronic kidney disease; N18.9 Chronic kidney disease, unspecified; I50.9 Heart failure, unspecified; E78.5 Hyperlipidemia, unspecified; Z79.01 Long term (current) use of anticoagulants
CPT/HCPCS: 82947; 92950; 96374; 96375; 99285; 99291; J0168